=== PATIENT | female | born 1945 | race Caucasian/White ===

== ENCOUNTER 2023-06-21 11:20 | Outpatient (OUT) | payer MEDICARE, SELFPAY ==
--- NOTE | 2023-06-21 11:23 | MM_ITS ---
Patient: ABDON OROZCO Exam Date: 06/21/2023 : 1945 Gender:F Ordering : DR Toni Kraft . Admission #: [id number] Family : Order #: [id number] CLICK HERE TO VIEW EXAM RADIOLOGY REPORT PROCEDURE: MM TOMOSYNTHESIS SCREENING BI COMPARISON: MG MAMM SCREEN 3D MIGUEL CAD, 06/20/2022. INDICATIONS: Screening Calculator Name NCI Breast Cancer Risk Assessment Tool 5 Year Breast Cancer Risk 8.80% Lifetime Breast Cancer Risk 16.20% Personal Breast Cancer No Personal Ovarian Cancer No Treatments HYSTERECTOMY Family Cancers Mother with breast cancer at age 38; Sister with breast cancer at age 50; Sister with breast cancer at age 69; Daughter with ovarian cancer at age 40. LOCATION: [facility] BREAST COMPOSITION: Scattered areas fibroglandular density. FINDINGS: DIAGNOSTIC CATEGORY 1--NEGATIVE. NO CHANGE FROM COMPARISON ASSESSMENT. Scattered benign-appearing calcifications are present. Scattered benign-appearing lymph nodes are present. Scattered benign-appearing nodules are present. RIGHT BREAST: No significant suspicious finding. Micro clip marker upper outer quadrant, mid breast. LEFT BREAST: No significant suspicious finding. RECOMMENDATIONS: ROUTINE MAMMOGRAM AND CLINICAL EVALUATION IN 12 MONTHS. PLEASE NOTE: A NORMAL MAMMOGRAM DOES NOT EXCLUDE THE POSSIBILITY OF BREAST CANCER. A CLINICALLY SUSPICIOUS PALPABLE LUMP SHOULD BE BIOPSIED. Dictated by: Matty Jurado MD on 06/21/2023 at 12:53 Approved by: Matty Jurado MD on 06/21/2023 at 13:08
== END 2023-06-21 11:21 | disposition home or self-care (01) ==
LOC: MAMMO 11:21
PROVIDERS: PCP Family Medicine; Visit Provider Family Medicine
DX: Z12.31 Encounter for screening mammogram for malignant neoplasm of breast (principal); Z80.3 Family history of malignant neoplasm of breast; Z80.41 Family history of malignant neoplasm of ovary
CPT/HCPCS: 77063; 77067

== ENCOUNTER 2023-08-24 12:17 | Emergency (ER) | payer MEDICARE, SELFPAY ==
[2023-08-24 12:24] VITALS: BP 130/78; PULSE 60; RESP 18; TEMP 36.4; O2SAT 96; BMI 31.2
--- NOTE | 2023-08-24 12:27 | XR_ITS ---
The [address] [address] Patient Name: ABDON OROZCO MRN: [id number] date: 1945 Sex: F Assigned Patient Location: ER Current Patient Location: ED.MAIN Accession/Order Number: [id number] Exam Date: 08/24/2023 12:45 Report Date: 08/24/2023 13:11 At the request of: NATHALIE DEE Procedure: XR chest 1V EXAM: XR chest 1V at 1255 hours HISTORY: weak, recent COVID COMPARISON: 04/22/2021 TECHNIQUE: AP upright portable chest x-ray FINDINGS: The heart remains mildly enlarged without cardiac decompensation. There is no evidence of vascular distention. No acute infiltrate, effusion or pneumothorax is identified. Degenerative changes are seen in the spine. XR/XR chest 1V IMPRESSION: Mild cardiac enlargement without cardiac decompensation. No focal infiltrate is identified, and the overall appearance of the chest is essentially unchanged. Electronically authenticated by: SUKHWINDER CARLIN Date: 08/24/2023 13:11
--- NOTE | 2023-08-24 12:27 | ECG_ITS ---
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
--- NOTE | 2023-08-24 12:28 | ED_ITS ---
HPI - Weakness General Chief complaint: Weakness Stated complaint: GENERAL WEAKNESS Time Seen by Provider: 08/24/23 12:23 History of Present Illness HPI Narrative: 78-year-old female presents to the emergency department for generalized weakness. Nine days ago she was diagnosed with Covid. She took Paxil.. She's been having some diarrhea and has felt weak. She doesn't have any pain and feels no unusual shortness of breath. She has been feeling this way for two or three days. Related Data Allergies Allergy/AdvReac Type Severity Reaction Status Date / Time No Known Drug Allergies Allergy Verified 08/24/23 12:32 Review of Systems ROS Narrative A ten point review of systems is negative except as noted above. PFSH PFSH Social History Smoking status: Former smoker Exam Narrative Exam Narrative: Nurses note and vital signs reviewed and patient is not hypoxic. General: The patient appears well and in no apparent distress. Patient is resting comfortably on cart. Skin: Warm, dry, no pallor noted. There is no rash noted. Head: Normocephalic, atraumatic Eye: Normal conjunctiva, no drainage Ears, Nose, Mouth, and Throat: oral mucosa is moist. Nares patent. Cardiovascular: irregularly irregular Respiratory: Patient is in no distress, no accessory muscle use, lungs are praveen r to auscultation, no wheezing, rales or rhonchi Back: non-tender GI: soft and nontender Musculoskeletal: The patient has no evidence of calf tenderness, no pitting edema, symmetrical pulses noted bilaterally Neurological: A&O, normal speech Psychiatric: Cooperative Constitutional Vital Signs, click to edit/add: Last Vital Signs Temp 97.6 F 08/24/23 12:24 Pulse 60 08/24/23 12:24 Resp 18 08/24/23 12:24 BP 130/78 08/24/23 12:24 Pulse Ox 96 08/24/23 12:24 O2 Del Method Room Air 08/24/23 12:24 Course Vital Signs Vital signs: Vital Signs Temperature 97.6 F 08/24/23 12:24 Pulse Rate 60 08/24/23 12:24 Respiratory Rate 18 08/24/23 12:24 Blood Pressure 130/78 08/24/23 12:24 Pulse Oximetry 96 08/24/23 12:24 Oxygen Delivery Method Room Air 08/24/23 12:24 Temperature 97.6 F 08/24/23 12:24 Pulse Rate 60 08/24/23 12:24 Respiratory Rate 18 08/24/23 12:24 Blood Pressure 130/78 08/24/23 12:24 Pulse Oximetry 96 08/24/23 12:24 Oxygen Delivery Method Room Air 08/24/23 12:24 MDM - Weakness MDM Narrative Medical decision making narrative: The patient appears to be mildly dehydrated on her laboratory analysis. She was given IV fluids and feels much better now and is able to be discharged home. Findings are discussed with the patient and her family. Differential Diagnosis Differential diagnosis: Likely other (ddehydration, acute kidney injury, alleged slight imbalance, anemia, pneumonia) Lab Data Attestation: I reviewed the patient's lab results. Labs: Lab Results 08/24/23 08/24/23 Range/Units 12:43 13:35 WBC 12.4 H (4.0-11.0) 10^3/uL RBC 4.55 (4.20-5.40) 10^6/uL Hgb 14.6 (12.0-16.0) g/dL Hct 44.7 (36.0-48.0) % MCV 98.2 (81.0-99.0) fL MCH 32.1 (26.7-34.0) pg MCHC 32.7 (29.9-35.2) g/dL RDW 12.2 (11.0-15.0) % Plt Count 343 (150-450) 10^3/uL MPV 10.5 (9.5-13.5) fL Neut % (Auto) 47.3 (43.0-75.0) % Lymph % (Auto) 36.8 (20.5-60.0) % [place] % (Auto) 10.6 (1.7-12.0) % Eos % (Auto) 1.0 (0.9-7.0) % Baso % (Auto) 0.4 (0.2-2.0) % Neut # (Auto) 5.9 (1.4-6.5) 10^3/uL Lymph # (Auto) 4.6 H (1.2-3.8) 10^3/uL [place] # (Auto) 1.3 H (0.3-0.8) 10^3/uL Eos # (Auto) 0.1 (0.0-0.7) 10^3/uL Baso # (Auto) 0.1 (0.0-0.1) 10^3/uL Abs Immat Gran (auto) 0.48 H (0.00-0.03) 10^3/uL Imm/Tot Granulo (auto) 3.9 H (0.0-0.5) % Sodium 137 (136-145) mmol/L Potassium 4.7 (3.5-5.1) mmol/L Chloride 102 (98-107) mmol/L Carbon Dioxide 27.1 (21.0-32.0) mmol/L Anion Gap 12.6 BUN 43.0 H (7.0-18.0) mg/dL Creatinine 1.09 H (0.55-1.02) mg/dL Est GFR ( Amer) 59 L (>=60) Est GFR (Non-Af Amer) 49 L (>=60) BUN/Creatinine Ratio 39.4 Glucose 92 (74-106) mg/dL Calcium 9.1 (8.5-10.1) mg/dL Urine Color Lt. yellow (YELLOW) Urine Clarity Clear (CLEAR) Urine pH 5.5 (5.0-9.0) Ur Specific [place] 1.025 (1.005-1.025) Urine Protein Negative (NEG/TRACE) mg/dL Urine Glucose (UA) Negative (NEGATIVE) mg/dL Urine Ketones Negative (NEGATIVE) mg/dL Urine Occult Blood Negative (NEGATIVE) Urine Nitrite Negative (NEGATIVE) Urine Bilirubin Negative (NEGATIVE) Urine Urobilinogen 0.2 (0.2-1.0) EU/dL Ur Leukocyte Esterase Negative (NEGATIVE) Urine RBC None seen (0-2) #/HPF Urine WBC 0-2 A (NONE SEEN) #/HPF Ur Squamous Epith Cells Rare (NONE/RARE) #/LPF Urine Crystals None seen (None Seen) #/HPF Urine Bacteria None seen (NONE SEEN) #/HPF Urine Casts None seen (NONE SEEN) #/LPF Urine Mucus Trace A (NONE SEEN) Imaging Data Chest x-ray: Radiologist's impression: Procedure: XR chest 1V EXAM: XR chest 1V at 1255 hours HISTORY: weak, recent COVID COMPARISON: 04/22/2021 TECHNIQUE: AP upright portable chest x-ray FINDINGS: The heart remains mildly enlarged without cardiac decompensation. There is no evidence of vascular distention. No acute infiltrate, effusion or pneumothorax is identified. Degenerative changes are seen in the spine. IMPRESSION: Mild cardiac enlargement without cardiac decompensation. No focal infiltrate is identified, and the overall appearance of the chest is essentially unchanged. Electronically authenticated by: SUKHWINDER CARLIN Date: Discharge Plan Discharge Chief Complaint: Weakness Clinical Impression: Dehydration Patient Disposition: Home, Self-Care Time of Disposition Decision: 14:53 Condition: Good Mode of Transportation: Private Vehicle Instructions: Dehydration (ED) Stand Alone Forms: Portal Instructions Referrals: Toni Kraft MD [Primary Care Provider] - 1 week
[2023-08-24] MEDS: 0.9 % SODIUM CHLORIDE 500 ML IV ×2 (12:59→14:23)
[2023-08-24 13:00] LABS: Basophils Absolute Auto 0.1 10^3/uL (0.0-0.1); Basophils Percent Auto 0.4 % (0.2-2.0); Eosinophils Absolute Auto 0.1 10^3/uL (0.0-0.7); Hematocrit 44.7 % (36.0-48.0); Hemoglobin 14.6 g/dL (12.0-16.0); Immature Granulocytes Abs Auto 0.48 10^3/uL (0.00-0.03); Immature Granulocytes Pct Auto 3.9 % (0.0-0.5); Lymphocytes Absolute Auto 4.6 10^3/uL (1.2-3.8); Lymphocytes Percent Auto 36.8 % (20.5-60.0); Mean Corpuscular HGB Conc 32.7 g/dL (29.9-35.2); Mean Corpuscular Hemoglobin 32.1 pg (26.7-34.0); Mean Corpuscular Volume 98.2 fL (81.0-99.0); Mean Platelet Volume 10.5 fL (9.5-13.5); Monocytes Absolute Auto 1.3 10^3/uL (0.3-0.8); Monocytes Percent Auto 10.6 % (1.7-12.0); Neutrophils Absolute Auto 5.9 10^3/uL (1.4-6.5); Neutrophils Percent Auto 47.3 % (43.0-75.0); Platelet Count 343 10^3/uL (150-450); Red Blood Count 4.55 10^6/uL (4.20-5.40); Red Cell Distribution Width 12.2 % (11.0-15.0); White Blood Count 12.4 10^3/uL (4.0-11.0)
[2023-08-24 13:09] LABS: Anion Gap 12.6; BUN Creatinine Ratio 39.4; Calcium 9.1 mg/dL (8.5-10.1); Carbon Dioxide 27.1 mmol/L (21.0-32.0); Chloride 102 mmol/L (98-107); Estimated GFR (African America 59 (>=60); Estimated GFR (Non-African Ame 49 (>=60); Glucose 92 mg/dL (74-106); Potassium 4.7 mmol/L (3.5-5.1); Sodium 137 mmol/L (136-145)
[2023-08-24 14:03] LABS: Bilirubin Urine NEGATIVE (NEGATIVE); Blood Urine NEGATIVE (NEGATIVE); Clarity Urine CLEAR (CLEAR); Color Urine LT. YELLOW (YELLOW); Glucose Urine UA NEGATIVE (NEGATIVE); Ketones Urine NEGATIVE (NEGATIVE); Leukocyte Esterase Urine NEGATIVE (NEGATIVE); Nitrite Urine NEGATIVE (NEGATIVE); Protein Urine NEGATIVE (NEG/TRACE); Specific Gravity Urine 1.025 (1.005-1.025); Urobilinogen Urine 0.2 EU/dL (0.2-1.0); pH Urine 5.5 (5.0-9.0)
[2023-08-24 14:17] LABS: Bacteria Urine NONE SEEN #/HPF (NONE SEEN); Mucus Urine TRACE (NONE SEEN); RBC Urine NONE SEEN #/HPF (0-2); Squamous Epithelial Cell Urine RARE #/LPF (NONE/RARE); WBC Urine 0-2 #/HPF (NONE SEEN)
[2023-08-24 14:18] LABS: Cast Seen? NONE SEEN #/LPF (NONE SEEN); Crystals Seen? None Seen #/HPF (None Seen)
== END 2023-08-24 15:06 | disposition home or self-care (01) ==
PROVIDERS: Emergency Provider Emergency Medicine; PCP Family Medicine
DX: E86.0 Dehydration (principal); Z86.16 Personal history of COVID-19; Z87.891 Personal history of nicotine dependence
CPT/HCPCS: 36415; 71045; 80048; 81001; 85025; 93005; 99285

== ENCOUNTER 2023-10-04 08:38 | Outpatient (OUT) | payer MEDICARE, SELFPAY ==
[2023-10-04 09:01] LABS: Eosinophils Absolute Auto 0.1 10^3/uL (0.0-0.7); Hematocrit 35.5 % (36.0-48.0); Hemoglobin 11.3 g/dL (12.0-16.0); Immature Granulocytes Abs Auto 0.01 10^3/uL (0.00-0.03); Immature Granulocytes Pct Auto 0.2 % (0.0-0.5); Lymphocytes Absolute Auto 1.6 10^3/uL (1.2-3.8); Lymphocytes Percent Auto 39.7 % (20.5-60.0); Mean Corpuscular HGB Conc 31.8 g/dL (29.9-35.2); Mean Corpuscular Hemoglobin 31.9 pg (26.7-34.0); Mean Corpuscular Volume 100.3 fL (81.0-99.0); Mean Platelet Volume 11.7 fL (9.5-13.5); Monocytes Absolute Auto 0.6 10^3/uL (0.3-0.8); Monocytes Percent Auto 13.6 % (1.7-12.0); Neutrophils Absolute Auto 1.7 10^3/uL (1.4-6.5); Neutrophils Percent Auto 42.5 % (43.0-75.0); Platelet Count 158 10^3/uL (150-450); Red Blood Count 3.54 10^6/uL (4.20-5.40); Red Cell Distribution Width 12.9 % (11.0-15.0)
[2023-10-04 10:41] LABS: Estimated Average Glucose 154 mg/dL
[2023-10-04 12:52] LABS: Alanine Aminotransferase 33 U/L (14-59); Albumin Globulin Ratio 1.3; Albumin Level 3.8 g/dL (3.4-5.0); Alkaline Phosphatase 60 U/L (46-116); Anion Gap 16.6; Aspartate Amino Transferase 20 U/L (15-37); BUN Creatinine Ratio 27.8; Bilirubin Total 0.4 mg/dL (0.2-1.0); Calcium 9.4 mg/dL (8.5-10.1); Carbon Dioxide 22.5 mmol/L (21.0-32.0); Chloride 108 mmol/L (98-107); Chol HDL Ratio 3.2; Cholesterol 167 mg/dL (<=200); Estimated GFR (African America 60 (>=60); Estimated GFR (Non-African Ame 49 (>=60); Free T3 2.75 pg/mL (2.18-3.98); Globulin 2.9 g/dL; Glucose 137 mg/dL (74-106); HDL Cholesterol 53 mg/dL (40-60); LDL Cholesterol Calculated 84.6 mg/dL; Potassium 4.1 mmol/L (3.5-5.1); Sodium 143 mmol/L (136-145); Thyroid Stimulating Hormone 0.043 uIU/mL (0.358-3.740); Total Protein 6.7 g/dL (6.4-8.2); Triglycerides 147 mg/dL (<=150); VLDL CHOLESTEROL 29.4 mg/dL
== END 2023-10-04 08:39 | disposition home or self-care (01) ==
LOC: LAB 08:40
PROVIDERS: PCP Family Medicine; Visit Provider Family Medicine
DX: E78.5 Hyperlipidemia, unspecified (principal); E03.9 Hypothyroidism, unspecified; I10 Essential (primary) hypertension; D64.9 Anemia, unspecified; Z79.899 Other long term (current) drug therapy; R73.01 Impaired fasting glucose
CPT/HCPCS: 36415; 80053; 80061; 83036; 84436; 84443; 84481; 85025

== ENCOUNTER 2023-10-11 10:04 | Outpatient (REF) | payer MEDICARE, SELFPAY ==
[2023-10-11 10:20] LABS: SARS-CoV-2 Ag NEGATIVE (NEGATIVE)
[2023-10-11 15:09] LABS: SARS-CoV-2 NAA NOT DETECTED (NOT DETECTE)
== END 2023-10-11 10:05 | disposition home or self-care (01) ==
LOC: LAB 10:04
PROVIDERS: PCP Family Medicine; Visit Provider Family Medicine
DX: J21.9 Acute bronchiolitis, unspecified (principal)
CPT/HCPCS: 87635; 87811

== ENCOUNTER 2023-10-14 13:01 | Observation (INO) | payer MEDICARE, SELFPAY ==
[2023-10-14] VITALS (20 sets, daily range): BP systolic 119–152; BP diastolic 63–75; PULSE 66–108; RESP 18–32; TEMP 36.9–37.1; O2SAT 93–98; BMI 32.8
--- NOTE | 2023-10-14 13:11 | XR_ITS ---
[address] [address] Patient Name: ABDON OROZCO MRN: [id number] date: 1945 Sex: F Assigned Patient Location: ER Current Patient Location: ER Accession/Order Number: [id number] Exam Date: 10/14/2023 13:35 Report Date: 10/14/2023 14:29 At the request of: NATHALIE DEE Procedure: XR chest 1V EXAM: XR chest 1V INDICATION: SOB. COMPARISON: Chest radiograph 08/24/2023 TECHNIQUE: Single frontal view of the chest FINDINGS: Stable cardiomegaly. No acute infiltrative process. No pleural effusion or pneumothorax. No acute osseous abnormality. XR/XR chest 1V IMPRESSION: No acute cardiopulmonary process. Electronically authenticated by: ELIZABETH RODRIGUEZ Date: 10/14/2023 14:29
--- NOTE | 2023-10-14 13:11 | ECG_ITS ---
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1945 Requested By: BEN MATHUR Order Number: [id number] Reading MD: BEN MATHUR Measurements Intervals [place] Rate: 88 P: -[id number] ME: -[id number] QRS: 107 QRSD: 94 T: 73 QT: 340 QTc: 386 Interpretive Statements 43235 Atrial fibrillation with aberrant conduction, or ventricular premature complexes 7100 Abnormal right axis deviation 9140 abnormal rhythm ECG Compared to ECG 08/24/2023 12:35:31 Ventricular premature complex(es) now present Aberrant conduction of supraventricular beat(s) now present Right-axis deviation now present Myocardial infarct finding no longer present Electronically Signed On 10-16-2023 8:15:45 EST by BEN MATHUR
--- NOTE | 2023-10-14 13:12 | ED.SOB1 ---
HPI - SOB/Dyspnea General Chief Complaint: Shortness of Breath/Dyspnea Stated Complaint: DIFF BREATHING Time Seen by Provider: 10/14/23 13:05 Source: patient Mode of arrival: walk-in Limitations: no limitations History of Present Illness HPI Narrative: 78-year-old female presents for cough and shortness of breath. She hasn't been feeling well this past week and has been wheezing. Her doctor put her on prednisone and Augmentin and she's been on that for a few days but wasn't getting better. No vomiting or diarrhea. She had a slight nosebleed today and otherwise her sputum has been clear. Related Data Home Medications Medication Instructions Recorded Confirmed albuterol sulfate 90 mcg/actuation 2 puff inhalation Q8H PRN 10/14/23 10/14/23 aerosol inhaler (Ventolin HFA) shortness of breath or wheezing amoxicillin 875 mg-potassium 1 tab PO Q12H 10/14/23 10/14/23 clavulanate 125 mg tablet apixaban 5 mg tablet (Eliquis) 5 mg PO Q12H 10/14/23 10/14/23 atorvastatin 40 mg tablet 40 mg PO DAILY 10/14/23 10/14/23 diclofenac sodium 75 mg 75 mg PO DAILY 10/14/23 10/14/23 tablet,delayed release furosemide 40 mg tablet 40 mg PO DAILY 10/14/23 10/14/23 glimepiride 2 mg tablet 2 mg PO BID 10/14/23 10/14/23 levothyroxine 88 mcg tablet 88 mcg PO DAILY 10/14/23 10/14/23 liothyronine 25 mcg tablet 25 mcg PO DAILY 10/14/23 10/14/23 losartan 50 mg tablet 50 mg PO DAILY 10/14/23 10/14/23 metoprolol succinate 25 mg 12.5 mg PO DAILY 10/14/23 10/14/23 tablet,extended release 24 hr prednisone 20 mg tablet mg 10/14/23 Allergies Allergy/AdvReac Type Severity Reaction Status Date / Time No Known Drug Allergies Allergy Verified 08/24/23 12:32 Review of Systems ROS Narrative A ten point review of systems is negative except as noted above. PFSH PFSH Social History Smoking status: Former smoker Exam Narrative Exam Narrative: Nurses note and vital signs reviewed and patient is not hypoxic. General: The patient appears well and is coughing frequently. Skin: Warm, dry, no pallor noted. There is no rash noted. Head: Normocephalic, atraumatic Eye: Normal conjunctiva, no drainage Ears, Nose, Mouth, and Throat: oral mucosa is moist. Nares patent. Cardiovascular: Regular Rate and Rhythm Respiratory: bilateral rhonchi present. Breath sounds are equal. Back: non-tender GI: soft and nontender Musculoskeletal: The patient has no evidence of calf tenderness, no pitting edema, symmetrical pulses noted bilaterally Neurological: A&O, normal speech Psychiatric: Cooperative Constitutional Vital Signs, click to edit/add: Last Vital Signs Temp 98.5 F 10/14/23 13:04 Pulse 100 H 10/14/23 15:22 Resp 24 10/14/23 15:22 BP 152/75 H 10/14/23 13:04 Pulse Ox 98 10/14/23 15:22 O2 Del Method Room Air 10/14/23 13:12 Course Vital Signs Vital signs: Vital Signs Temperature 98.5 F 10/14/23 13:04 Pulse Rate 77 10/14/23 13:04 Respiratory Rate 24 10/14/23 13:04 Blood Pressure 152/75 H 10/14/23 13:04 Pulse Oximetry 97 10/14/23 13:04 Oxygen Delivery Method Room Air 10/14/23 13:04 Temperature 98.5 F 10/14/23 13:04 Pulse Rate 100 H 10/14/23 15:22 Respiratory Rate 24 10/14/23 15:22 Blood Pressure 152/75 H 10/14/23 13:04 Pulse Oximetry 98 10/14/23 15:22 Oxygen Delivery Method Room Air 10/14/23 13:12 MDM - SOB/Dyspnea MDM Narrative Medical decision making narrative: the patient is a former smoker and she has rhonchi. She has failed outpatient therapy with Augmentin and prednisone and she'll be admitted. No evidence of pneumonia and her Covid test is negative. She was given IV Solu-Medrol and aerosol treatments and she's being admitted. Findings are discussed with the patient and her family. Differential Diagnosis Differential diagnosis: Likely acute exacerbation of chronic obstructive airways disease, congestive heart failure, community acquired pneumonia and other (Covid) Lab Data Attestation: I reviewed the patient's lab results. Labs: Lab Results 12/09/23 12/09/23 Range/Units 13:24 13:25 WBC 8.5 (4.0-11.0) 10^3/uL RBC 3.88 L (4.20-5.40) 10^6/uL Hgb 12.3 (12.0-16.0) g/dL Hct 39.2 (36.0-48.0) % MCV 101.0 H (81.0-99.0) fL MCH 31.7 (26.7-34.0) pg MCHC 31.4 (29.9-35.2) g/dL RDW 13.2 (11.0-15.0) % Plt Count 199 (150-450) 10^3/uL MPV 11.7 (9.5-13.5) fL Neut % (Auto) 63.3 (43.0-75.0) % Lymph % (Auto) 22.9 (20.5-60.0) % [place] % (Auto) 12.8 H (1.7-12.0) % Eos % (Auto) 0.2 L (0.9-7.0) % Baso % (Auto) 0.4 (0.2-2.0) % Neut # (Auto) 5.4 (1.4-6.5) 10^3/uL Lymph # (Auto) 1.9 (1.2-3.8) 10^3/uL [place] # (Auto) 1.1 H (0.3-0.8) 10^3/uL Eos # (Auto) 0.0 (0.0-0.7) 10^3/uL Baso # (Auto) 0.0 (0.0-0.1) 10^3/uL Abs Immat Gran (auto) 0.03 (0.00-0.03) 10^3/uL Imm/Tot Granulo (auto) 0.4 (0.0-0.5) % Sodium 143 (136-145) mmol/L Potassium 3.7 (3.5-5.1) mmol/L Chloride 104 (98-107) mmol/L Carbon Dioxide 27.0 (21.0-32.0) mmol/L Anion Gap 15.7 BUN 39.0 H (7.0-18.0) mg/dL Creatinine 1.25 H (0.55-1.02) mg/dL Est GFR ( Amer) 50 L (>=60) Est GFR (Non-Af Amer) 42 L (>=60) BUN/Creatinine Ratio 31.2 Glucose 62 L (74-106) mg/dL Calcium 9.1 (8.5-10.1) mg/dL Troponin I High Sens 13.6 (4.0-51.3) pg/mL SARS-CoV-2 (PCR) Negative (NEGATIVE) SARS-CoV-2 RNA (CIARAN) Not detected (NOT DETECTE) Imaging Data Chest x-ray: Radiologist's impression: Procedure: XR chest 1V EXAM: XR chest 1V INDICATION: SOB. COMPARISON: Chest radiograph 08/24/2023 TECHNIQUE: Single frontal view of the chest FINDINGS: Stable cardiomegaly. No acute infiltrative process. No pleural effusion or pneumothorax. No acute osseous abnormality. IMPRESSION: No acute cardiopulmonary process. Electronically authenticated by: ELIZABETH RODRIGUEZ Date: 10/14/2023 14:29 ECG Data Attestation: I personally reviewed and interpreted this ECG as follows: (EKG on my interpretation shows atrial fibrillation with PVCs) Critical Care Time Critical Care Time Critical Care Time: Yes Total Critical Care Time: 35 Attestation: Due to the high probability of sudden and clinically significant deterioration in the patient's condition he/she required the highest level of my preparedness to intervene urgently I provided critical care time including documentation time, medication orders and management, reevaluation, vital sign assessment, ordering and reviewing of lab tests, ordering and reviewing of x-ray studies, and admission orders. Aggregate critical care time is 35 minutes including only time during which I was engaged in work directly related to his/her care and did not include time spent treating other patients simultaneously. Discharge Plan Discharge Chief Complaint: Shortness of Breath/Dyspnea Clinical Impression: Acute exacerbation of chronic obstructive pulmonary disease Patient Disposition: Admitted As Inpatient Time of Disposition Decision: 15:57 Condition: Good
[2023-10-14] MEDS: METHYLPREDNISOLONE SOD SUCC PF 125 MG/2 ML VIAL IVP (13:33)
[2023-10-14 13:39] LABS: Basophils Percent Auto 0.4 % (0.2-2.0); Eosinophils Percent Auto 0.2 % (0.9-7.0); Hematocrit 39.2 % (36.0-48.0); Hemoglobin 12.3 g/dL (12.0-16.0); Immature Granulocytes Abs Auto 0.03 10^3/uL (0.00-0.03); Immature Granulocytes Pct Auto 0.4 % (0.0-0.5); Lymphocytes Absolute Auto 1.9 10^3/uL (1.2-3.8); Lymphocytes Percent Auto 22.9 % (20.5-60.0); Mean Corpuscular HGB Conc 31.4 g/dL (29.9-35.2); Mean Corpuscular Hemoglobin 31.7 pg (26.7-34.0); Mean Platelet Volume 11.7 fL (9.5-13.5); Monocytes Absolute Auto 1.1 10^3/uL (0.3-0.8); Monocytes Percent Auto 12.8 % (1.7-12.0); Neutrophils Absolute Auto 5.4 10^3/uL (1.4-6.5); Neutrophils Percent Auto 63.3 % (43.0-75.0); Platelet Count 199 10^3/uL (150-450); Red Blood Count 3.88 10^6/uL (4.20-5.40); Red Cell Distribution Width 13.2 % (11.0-15.0); White Blood Count 8.5 10^3/uL (4.0-11.0)
[2023-10-14] MEDS: ALBUTEROL SULFATE 2.5 MG/3 ML VIAL NEB IH (13:47)
[2023-10-14 13:56] LABS: Anion Gap 15.7; BUN Creatinine Ratio 31.2; Calcium 9.1 mg/dL (8.5-10.1); Chloride 104 mmol/L (98-107); Estimated GFR (African America 50 (>=60); Estimated GFR (Non-African Ame 42 (>=60); Glucose 62 mg/dL (74-106); Potassium 3.7 mmol/L (3.5-5.1); Sodium 143 mmol/L (136-145); Troponin I High Sensitivity 13.6 pg/mL (4.0-51.3)
[2023-10-14 14:01] LABS: SARS-CoV-2 Ag NEGATIVE (NEGATIVE)
[2023-10-14 15:31] LABS: SARS-CoV-2 NAA NOT DETECTED (NOT DETECTE)
[2023-10-14 16:55] LABS: Adenovirus NOT DETECTED (NOT DETECTE); Bordetella parapertussis NOT DETECTED (NOT DETECTE); Coronavirus 229E NOT DETECTED (NOT DETECTE); Coronavirus HKU1 NOT DETECTED (NOT DETECTE); Coronavirus NL63 NOT DETECTED (NOT DETECTE); Coronavirus OC43 NOT DETECTED (NOT DETECTE); Human Metapneumovirus NOT DETECTED (NOT DETECTE); Human Rhinovirus/Enterovirus NOT DETECTED (NOT DETECTE); Influenza A NOT DETECTED (NOT DETECTE); Influenza B NOT DETECTED (NOT DETECTE); Mycoplasma pneumoniae NOT DETECTED (NOT DETECTE); Parainfluenza Virus 1 NOT DETECTED (NOT DETECTE); Parainfluenza Virus 2 NOT DETECTED (NOT DETECTE); Parainfluenza Virus 3 NOT DETECTED (NOT DETECTE); Parainfluenza Virus 4 NOT DETECTED (NOT DETECTE); SARS-CoV-2 NOT DETECTED (NOT DETECTE)
--- NOTE | 2023-10-14 16:57 | P.HP_ITS ---
H&P: HPI History of Present Illness Chief complaint: DIFF BREATHING/COPD EXASPERTION Narrative: patient is a 78-year-old female with past medical history of hypertension, type 2 diabetes, former smoker, atrial fibrillation who presented with a week long history of increased wheezing, shortness of breath, cough. She denies any fevers or chills, vomiting, or diarrhea. She visited her primary care physician Dr. Kraft who placed her on prednisone and Augmentin as well as an inhaler without much improvement. She presented to the Emergency Room today with these symptoms and was admitted for probable chronic obstructive pulmonary disease exacerbation and further plan of care. Review of Systems ROS Narrative ROS: a complete review of systems were reviewed with patient and are positive as below or listed in History of Chief Complaint. General: no fever, chills, night sweats Head: no headache, trauma, visual changes, nausea or vomiting Skin: no reported rashes, itching or sores Eyes: no blurriness of vision Ears: no reported hearing loss, vertigo, earache, or tinnitus Throat: no sore throat, hoarseness, swelling of neck, or tongue pain Heart: no chest pain Lungs: shortness of breath, and cough GI: no diarrhea or vomiting/nausea Urinary: no urinary urgency, frequency or pain Neuro: no numbness or tingling HEM: no bleeding issues or bruising ENDO: no thyroid problems Psych: no anxiety or depression PFSH PFSH Surgical History History of arthroplasty of right shoulder ?Z96.611 - Presence of right artificial shoulder joint (ICD-10) History of knee replacement ?Z96.659 - Presence of unspecified artificial knee joint (ICD-10) H/O: hysterectomy ?Z90.710 - Acquired absence of both cervix and uterus (ICD-10) Social History Within the past year, how often did you have a drink containing alcohol: 2-3 times a week Within the past year, how many standard drinks containing alcohol did you have on a typical day: 1 or 2 Within the past year, how often did you have six or more drinks on one occasion: less than monthly Total score: 1 Score interpretation: A score of 3 or more indicates drinking is likely to affect patient's safety. Smoking status: Former smoker Non-prescribed substance use: denies use Previous occupational history: [employer] Highest level of school completed/degree received: high school graduate Meds Home Medications and Allergies Home Medications Medication Instructions Recorded Confirmed Type albuterol sulfate 90 mcg/actuation 2 puff inhalation Q8H PRN 10/14/23 10/14/23 History aerosol inhaler (Ventolin HFA) shortness of breath or wheezing amoxicillin 875 mg-potassium 1 tab PO Q12H 10/14/23 10/14/23 History clavulanate 125 mg tablet apixaban 5 mg tablet (Eliquis) 5 mg PO Q12H 10/14/23 10/14/23 History atorvastatin 40 mg tablet 40 mg PO DAILY 10/14/23 10/14/23 History diclofenac sodium 75 mg 75 mg PO DAILY 10/14/23 10/14/23 History tablet,delayed release furosemide 40 mg tablet 40 mg PO DAILY 10/14/23 10/14/23 History glimepiride 2 mg tablet 2 mg PO BID 10/14/23 10/14/23 History levothyroxine 88 mcg tablet 88 mcg PO DAILY 10/14/23 10/14/23 History liothyronine 25 mcg tablet 25 mcg PO DAILY 10/14/23 10/14/23 History losartan 50 mg tablet 50 mg PO DAILY 10/14/23 10/14/23 History metoprolol succinate 25 mg 12.5 mg PO DAILY 10/14/23 10/14/23 History tablet,extended release 24 hr prednisone 20 mg tablet mg 10/14/23 History Allergies Allergy/AdvReac Type Severity Reaction Status Date / Time No Known Drug Allergies Allergy Verified 08/24/23 12:32 Exam Narrative Exam Narrative: General: Patient is alert, and oriented to person, place and time with normal affect, proper hygiene Skin: no visible rashes, or ulcers Head: atraumatic, acephalic Eyes: PERRLA, no nystagmus present, conjunctiva clear, no scleral icterus Ears: normal gross auditory acuity Heart: Normal rate and rhythm, no murmurs/rubs/gallops Lungs: audible wheezes, and crackles and diminished breath sounds all lung cardenas Abdomen: Normal audible bowel sounds, no distension, No palpable masses, no organomegaly, no rebound/guarding/ or rigidity Musculoskeletal: no swelling bilateral lower extremities Neuro: CN II-X grossly intact Constitutional Vital Signs, click to edit/add: Last Vital Signs Temp 98.5 F 10/14/23 13:04 Pulse 100 H 10/14/23 15:22 Resp 24 10/14/23 15:22 BP 152/75 H 10/14/23 13:04 Pulse Ox 98 10/14/23 15:22 O2 Del Method Room Air 10/14/23 13:12 Results Labs Labs: Short CBC 10/14/23 Range/Units 13:24 WBC 8.5 (4.0-11.0) 10^3/uL Hgb 12.3 (12.0-16.0) g/dL Hct 39.2 (36.0-48.0) % Plt Count 199 (150-450) 10^3/uL BMP 10/14/23 13:24 Sodium 143 Potassium 3.7 Chloride 104 Carbon Dioxide 27.0 BUN 39.0 H Creatinine 1.25 H Glucose 62 L Calcium 9.1 Assessment and Plan Assessment and Plan (1) Acute exacerbation of chronic obstructive pulmonary disease: Assessment and Plan: will place on azithromycin, rocephin. Xopenex scheduled and PRN albuterol. Scheduled budesonide. Solumedrol 40mg Q6 hours. Chest X-ray negative for Pneumonia. first trop was negative. respiratory panel pending. (2) Type 2 diabetes mellitus: Assessment and Plan: fingersticks every before meals daily at bedtime and sliding scale insulin (3) Hypertension: Assessment and Plan: continue home Lasix, losartan, metoprolol (4) Atrial fibrillation: Assessment and Plan: currently rate controlled on the above medications, will continue Eliquis Plan patient is a full code continue Eliquis patient is in observation status and is not expected to stay more than 2 midnights.
[2023-10-14] MEDS: CEFTRIAXONE 1,000 MG in 0.9 % SODIUM CHLORIDE 50 ML 100 MG IV (17:03)
[2023-10-14] MEDS: AZITHROMYCIN 500 MG in 0.9 % SODIUM CHLORIDE 250 ML 250 MG IV (17:04)
[2023-10-14 17:46] LABS: Respiratory Syncytial Virus DETECTED (NOT DETECTE)
[2023-10-14 17:49] LABS: Troponin I High Sensitivity 12.6 pg/mL (4.0-51.3)
[2023-10-14] MEDS: LACTATED RINGER'S SOLUTION 1,000 ML 125 ML IV (18:00)
[2023-10-14 18:15] LABS: Glucometer 214 mg/dL (74-106)
[2023-10-14] MEDS: LEVALBUTEROL HCL 1.25 MG/3 ML VIAL NEB IH ×2 (18:55→23:33)
[2023-10-14 19:57] LABS: Glucometer 448 mg/dL (74-106)
[2023-10-14] MEDS: APIXABAN 5 MG TABLET PO (20:53)
[2023-10-14] MEDS: METHYLPREDNISOLONE SOD SUCC PF 40 MG/ML VIAL IVP (20:53)
[2023-10-14] MEDS: INSULIN ASPART 300 UNIT/3 ML PEN SUBQ (20:56)
[2023-10-14] MEDS: BUDESONIDE 0.5 MG/2 ML AMPULE NEB IH (23:33)
[2023-10-15] VITALS (19 sets, daily range): BP systolic 135–144; BP diastolic 53–74; PULSE 70–91; RESP 18–24; TEMP 36.4–36.7; O2SAT 92–96
[2023-10-15] MEDS: LACTATED RINGER'S SOLUTION 1,000 ML 125 ML IV ×3 (01:29→20:17)
[2023-10-15] MEDS: METHYLPREDNISOLONE SOD SUCC PF 40 MG/ML VIAL IVP ×4 (01:32→20:15)
[2023-10-15] MEDS: LEVALBUTEROL HCL 1.25 MG/3 ML VIAL NEB IH ×4 (04:37→23:16)
[2023-10-15 04:49] LABS: Hemoglobin 10.1 g/dL (12.0-16.0); Immature Granulocytes Abs Auto 0.02 10^3/uL (0.00-0.03); Immature Granulocytes Pct Auto 0.4 % (0.0-0.5); Lymphocytes Absolute Auto 0.4 10^3/uL (1.2-3.8); Lymphocytes Percent Auto 9.1 % (20.5-60.0); Mean Corpuscular HGB Conc 31.6 g/dL (29.9-35.2); Mean Corpuscular Hemoglobin 31.4 pg (26.7-34.0); Mean Corpuscular Volume 99.4 fL (81.0-99.0); Mean Platelet Volume 11.9 fL (9.5-13.5); Monocytes Absolute Auto 0.2 10^3/uL (0.3-0.8); Monocytes Percent Auto 3.3 % (1.7-12.0); Neutrophils Absolute Auto 3.9 10^3/uL (1.4-6.5); Neutrophils Percent Auto 87.2 % (43.0-75.0); Platelet Count 174 10^3/uL (150-450); Red Blood Count 3.22 10^6/uL (4.20-5.40); Red Cell Distribution Width 13.3 % (11.0-15.0); White Blood Count 4.5 10^3/uL (4.0-11.0)
[2023-10-15] MEDS: LEVOTHYROXINE SODIUM 88 MCG TABLET PO (05:35)
[2023-10-15] MEDS: LIOTHYRONINE SODIUM 25 MCG TABLET PO (05:35)
[2023-10-15 05:40] LABS: Alanine Aminotransferase 32 U/L (14-59); Albumin Globulin Ratio 1.1; Albumin Level 3.3 g/dL (3.4-5.0); Alkaline Phosphatase 51 U/L (46-116); Anion Gap 14.1; Aspartate Amino Transferase 19 U/L (15-37); BUN Creatinine Ratio 28.4; Bilirubin Total 0.3 mg/dL (0.2-1.0); Carbon Dioxide 24.6 mmol/L (21.0-32.0); Chloride 105 mmol/L (98-107); Estimated GFR (African America >60 (>=60); Estimated GFR (Non-African Ame 53 (>=60); Globulin 2.9 g/dL; Glucose 269 mg/dL (74-106); Magnesium 1.7 mg/dL (1.8-2.4); Potassium 3.7 mmol/L (3.5-5.1); Sodium 140 mmol/L (136-145); Total Protein 6.2 g/dL (6.4-8.2)
--- NOTE | 2023-10-15 07:53 | XR_ITS ---
[address] [address] Patient Name: ABDON OROCZO MRN: [id number] date: 1945 Sex: F Assigned Patient Location: MS Current Patient Location: MS Accession/Order Number: [id number] Exam Date: 10/15/2023 08:16 Report Date: 10/15/2023 08:35 At the request of: JEFFREY JIMENEZ Procedure: XR chest 2V EXAM: XR chest 2V INDICATION: cough. COMPARISON: Chest radiograph 10/14/2023 TECHNIQUE: Two views of the chest FINDINGS: Stable cardiomegaly. Normal pulmonary vasculature. No focal consolidation, pleural effusion, or pneumothorax. No acute osseous abnormality. XR/XR chest 2V IMPRESSION: No acute cardiopulmonary process. Electronically authenticated by: ELIZABETH RODRIGUEZ Date: 10/15/2023 08:35
--- NOTE | 2023-10-15 07:55 | PM.PN ---
Progress Note: Subjective Subjective Interval history: patient states she was not able to sleep much last night, still with productive cough with clear sputum. She denies any fevers or chills or shortness of breath. She still notes some wheezing. Patient reports she doesn't notice much of a change since last evening's admission. Exam Narrative Exam Narrative: General: Patient is alert, and oriented to person, place and time slightly tachypneic when talking from coughing Skin: no visible rashes, or ulcers Head: atraumatic, acephalic Eyes: PERRLA, no nystagmus present, conjunctiva clear, no scleral icterus Ears: normal gross auditory acuity Heart: Normal rate and rhythm, no murmurs/rubs/gallops Lungs: audible wheezes, and crackles and diminished breath sounds all lung cardenas Abdomen: Normal audible bowel sounds, no distension, No palpable masses, no organomegaly, no rebound/guarding/ or rigidity Musculoskeletal: no swelling bilateral lower extremities Neuro: CN II-X grossly intact Constitutional Vital Signs, click to edit/add: Last Vital Signs Temp 97.6 F 10/15/23 04:00 Pulse 84 10/15/23 06:00 Resp 24 10/15/23 04:40 BP 142/53 H 10/15/23 04:00 Pulse Ox 95 10/15/23 04:40 O2 Del Method Room Air 10/15/23 04:40 Progress Note: Objective Labs Labs: Short CBC 10/14/23 10/15/23 Range/Units 13:24 04:12 WBC 8.5 4.5 (4.0-11.0) 10^3/uL Hgb 12.3 10.1 L (12.0-16.0) g/dL Hct 39.2 32.0 L (36.0-48.0) % Plt Count 199 174 (150-450) 10^3/uL BMP 10/14/23 10/15/23 13:24 04:12 Sodium 143 140 Potassium 3.7 3.7 Chloride 104 105 Carbon Dioxide 27.0 24.6 BUN 39.0 H 29.0 H Creatinine 1.25 H 1.02 Glucose 62 L 269 H Calcium 9.1 9.0 Liver Function 10/15/23 Range/Units 04:12 Total Bilirubin 0.3 (0.2-1.0) mg/dL AST 19 (15-37) U/L ALT 32 (14-59) U/L Alkaline Phosphatase 51 (46-116) U/L Albumin 3.3 L (3.4-5.0) g/dL Progress Note: A&P Assessment and Plan (1) RSV bronchitis: Assessment and Plan: continue azithromycin, stop rochepin today. Xopenex scheduled and PRN albuterol. Scheduled budesonide. Solumedrol 40mg Q6 hours. Chest X-ray negative for Pneumonia x 2, No oxygen requirement at this time; start Mucinex, Tessalon, and promethazine for cough, Patient just needs time to show improvement. OPEP therapy. (2) Type 2 diabetes mellitus: Assessment and Plan: fingersticks every before meals daily at bedtime and sliding scale insulin, will be elevated due to steroids (3) Hypertension: Assessment and Plan: continue home Lasix, losartan, metoprolol (4) Atrial fibrillation: Assessment and Plan: currently rate controlled on the above medications, will continue Eliquis Plan patient is a full code continue Eliquis patient is in observation status and is not expected to stay more than 2 midnights.
[2023-10-15] MEDS: MAGNESIUM SULFATE IN WATER 2 GM/50 ML PREMIX IV (08:59)
[2023-10-15] MEDS: LOSARTAN POTASSIUM 50 MG TABLET PO (09:00)
[2023-10-15] MEDS: METOPROLOL SUCCINATE 25 MG TAB.ER.24H 12.5 MG PO (09:00)
[2023-10-15] MEDS: FUROSEMIDE 40 MG TABLET PO (09:00)
[2023-10-15] MEDS: GUAIFENESIN/DEXTROMETHORPHAN TAB.ER.12H 1 TAB PO ×2 (09:00→20:15)
[2023-10-15] MEDS: DICLOFENAC SODIUM 25 MG TABLET.DR 75 MG PO (09:00)
[2023-10-15] MEDS: BENZONATATE 100 MG CAPSULE PO ×2 (09:00→18:59)
[2023-10-15] MEDS: ATORVASTATIN CALCIUM 40 MG TABLET PO (09:00)
[2023-10-15] MEDS: APIXABAN 5 MG TABLET PO ×2 (09:00→20:15)
[2023-10-15] MEDS: INSULIN ASPART 300 UNIT/3 ML PEN SUBQ ×4 (09:01→21:25)
[2023-10-15] MEDS: BUDESONIDE 0.5 MG/2 ML AMPULE NEB IH ×2 (10:19→23:16)
[2023-10-15 11:30] LABS: Glucometer 233 mg/dL (74-106)
[2023-10-15] MEDS: PROMETHAZINE HCL/CODEINE 6.25 MG-10 MG/5 ML SYRUP 5 MG PO ×2 (13:43→23:03)
[2023-10-15 16:17] LABS: Glucometer 207 mg/dL (74-106)
[2023-10-15] MEDS: AZITHROMYCIN 500 MG in 0.9 % SODIUM CHLORIDE 250 ML 250 MG IV (16:21)
[2023-10-15] MEDS: CEFTRIAXONE 1,000 MG in 0.9 % SODIUM CHLORIDE 50 ML 100 MG IV (17:36)
[2023-10-15 21:10] LABS: Glucometer 290 mg/dL (74-106)
[2023-10-16] VITALS (9 sets, daily range): BP systolic 155–172; BP diastolic 64–79; PULSE 71–91; RESP 18–20; TEMP 36.6–36.7; O2SAT 92–94
[2023-10-16] MEDS: METHYLPREDNISOLONE SOD SUCC PF 40 MG/ML VIAL IVP ×2 (01:55→07:39)
[2023-10-16] MEDS: LACTATED RINGER'S SOLUTION 1,000 ML 125 ML IV (04:16)
[2023-10-16 04:56] LABS: Basophils Percent Auto 0.1 % (0.2-2.0); Hematocrit 32.2 % (36.0-48.0); Hemoglobin 10.5 g/dL (12.0-16.0); Immature Granulocytes Abs Auto 0.03 10^3/uL (0.00-0.03); Immature Granulocytes Pct Auto 0.4 % (0.0-0.5); Lymphocytes Absolute Auto 0.7 10^3/uL (1.2-3.8); Mean Corpuscular HGB Conc 32.6 g/dL (29.9-35.2); Mean Corpuscular Hemoglobin 32.3 pg (26.7-34.0); Mean Corpuscular Volume 99.1 fL (81.0-99.0); Mean Platelet Volume 11.4 fL (9.5-13.5); Monocytes Absolute Auto 0.5 10^3/uL (0.3-0.8); Neutrophils Absolute Auto 6.8 10^3/uL (1.4-6.5); Neutrophils Percent Auto 84.5 % (43.0-75.0); Platelet Count 169 10^3/uL (150-450); Red Blood Count 3.25 10^6/uL (4.20-5.40); Red Cell Distribution Width 13.4 % (11.0-15.0)
[2023-10-16] MEDS: CEFTRIAXONE 1,000 MG in 0.9 % SODIUM CHLORIDE 50 ML 100 MG IV (05:21)
[2023-10-16] MEDS: LEVALBUTEROL HCL 1.25 MG/3 ML VIAL NEB IH (05:28)
[2023-10-16 05:29] LABS: Alanine Aminotransferase 30 U/L (14-59); Albumin Globulin Ratio 1.2; Albumin Level 3.2 g/dL (3.4-5.0); Alkaline Phosphatase 50 U/L (46-116); Anion Gap 11.6; Aspartate Amino Transferase 21 U/L (15-37); BUN Creatinine Ratio 30.2; Bilirubin Total 0.3 mg/dL (0.2-1.0); Calcium 8.7 mg/dL (8.5-10.1); Carbon Dioxide 27.1 mmol/L (21.0-32.0); Chloride 107 mmol/L (98-107); Estimated GFR (African America >60 (>=60); Estimated GFR (Non-African Ame 56 (>=60); Globulin 2.6 g/dL; Glucose 199 mg/dL (74-106); Potassium 3.7 mmol/L (3.5-5.1); Sodium 142 mmol/L (136-145); Total Protein 5.8 g/dL (6.4-8.2)
[2023-10-16] MEDS: LEVOTHYROXINE SODIUM 88 MCG TABLET PO (05:47)
[2023-10-16] MEDS: LIOTHYRONINE SODIUM 25 MCG TABLET PO (05:47)
[2023-10-16 07:24] LABS: Glucometer 189 mg/dL (74-106)
[2023-10-16] MEDS: INSULIN ASPART 300 UNIT/3 ML PEN SUBQ (07:37)
--- NOTE | 2023-10-16 07:39 | P.DS_ITS ---
DS: Providers Provider Date of admission: 10/14/23 16:14 Primary care physician: Toni Kraft MD DS: Diagnosis Discharge Diagnosis (1) RSV bronchitis: (2) Type 2 diabetes mellitus: (3) Hypertension: (4) Atrial fibrillation: DS: Summary Hospital Course Hospital Course: Patient admitted with sinus tachycardia, uncontrolled hypertension and acute respiratory distress secondary to acute exacerbation of COPD secondary to RSV bronchiolitis. Treated with steroids, antibiotics, aerosol treatments. She did not develop any significant hypoxia. She was low 90s. Overall she does feel somewhat improved today. She is able to ambulate without hypoxia. No progression of the disease. At this point if the patient is ambulating well thi s morning she will be discharged home in improving condition. Medications see list. Follow-up with me later this week. Only other issue was hypomagnesemia which was supplemented, mild dehydration g iven IV fluids, she does have chronic iron deficiency anemia, stool study was ordered but may be not collected prior to discharge. Last issue was uncontrolled diabetes mellitus secondary to steroid use we will monitor this closely as an outpatient Time Spent with Patient Time attestation: Total time spent providing and/or coordinating discharge services: Exam Constitutional Vital Signs, click to edit/add: Last Vital Signs Temp 98.0 F 10/16/23 06:00 Pulse 91 H 10/16/23 06:00 Resp 18 10/16/23 06:00 BP 155/64 H 10/16/23 06:00 Pulse Ox 94 L 10/16/23 06:00 O2 Del Method Room Air 10/16/23 06:00 Documenting provider has reviewed patient's vital signs: yes Common normals: no apparent distress [facility] Common normals: normocephalic Chest Common normals: inspection of chest normal and palpation of chest normal Respiratory Common normals: normal respiratory effort and no retractions Auscultation: rhonchi and wheezes Cardio Common normals: regular rate, regular rhythm and no murmurs DS: Data Data Completed and Pending Labs on day of discharge: Labs from last 24 hours 10/16/23 10/16/23 10/15/23 07:23 04:41 21:10 WBC 8.0 RBC 3.25 L Hgb 10.5 L Hct 32.2 L MCV 99.1 H MCH 32.3 MCHC 32.6 RDW 13.4 Plt Count 169 MPV 11.4 Neut % (Auto) 84.5 H Lymph % (Auto) 9.0 L [place] % (Auto) 6.0 Eos % (Auto) 0.0 L Baso % (Auto) 0.1 L Neut # (Auto) 6.8 H Lymph # (Auto) 0.7 L [place] # (Auto) 0.5 Eos # (Auto) 0.0 Baso # (Auto) 0.0 Abs Immat Gran (auto) 0.03 Imm/Tot Granulo (auto) 0.4 Sodium 142 Potassium 3.7 Chloride 107 Carbon Dioxide 27.1 Anion Gap 11.6 BUN 29.0 H Creatinine 0.96 Est GFR ( Amer) >60 Est GFR (Non-Af Amer) 56 L BUN/Creatinine Ratio 30.2 Glucose 199 H Calcium 8.7 Total Bilirubin 0.3 AST 21 ALT 30 Alkaline Phosphatase 50 Total Protein 5.8 L Albumin 3.2 L Globulin 2.6 Albumin/Globulin Ratio 1.2 POC Glucose 189 H 290 H 10/15/23 10/15/23 16:15 11:30 WBC RBC Hgb Hct MCV MCH MCHC RDW Plt Count MPV Neut % (Auto) Lymph % (Auto) [place] % (Auto) Eos % (Auto) Baso % (Auto) Neut # (Auto) Lymph # (Auto) [place] # (Auto) Eos # (Auto) Baso # (Auto) Abs Immat Gran (auto) Imm/Tot Granulo (auto) Sodium Potassium Chloride Carbon Dioxide Anion Gap BUN Creatinine Est GFR ( Amer) Est GFR (Non-Af Amer) BUN/Creatinine Ratio Glucose Calcium Total Bilirubin AST ALT Alkaline Phosphatase Total Protein Albumin Globulin Albumin/Globulin Ratio POC Glucose 207 H 233 H Discharge Plan Discharge Disposition: Home, Self-Care Condition: Good Discharge Medications: New prednisone 10 mg tablet 40 mg PO DAILY Qty: 32 0RF Rx Instructions: 4/day for 3 days, 3/day for 3 days, 2/day for 3 days, 1/day for 3 days, 1/2 /day for 4 days levofloxacin 750 mg tablet 750 mg PO DAILY 7 Days Qty: 7 0RF Continued albuterol sulfate [Ventolin HFA] 90 mcg/actuation HFA aerosol inhaler 2 puff INHALATION Q8H PRN (Reason: shortness of breath or wheezing) Eliquis 5 mg tablet 5 mg PO Q12H atorvastatin 40 mg tablet 40 mg PO DAILY diclofenac sodium 75 mg tablet,delayed release (DR/EC) 75 mg PO DAILY glimepiride 2 mg tablet 2 mg PO BID furosemide 40 mg tablet 40 mg PO DAILY levothyroxine 88 mcg tablet 88 mcg PO DAILY liothyronine 25 mcg tablet 25 mcg PO DAILY losartan 50 mg tablet 50 mg PO DAILY metoprolol succinate 25 mg tablet extended release 24 hr 12.5 mg PO DAILY Discontinued amoxicillin-pot clavulanate 875-125 mg tablet 1 tab PO Q12H prednisone 20 mg tablet Forms: Portal Instructions
[2023-10-16] MEDS: DICLOFENAC SODIUM 25 MG TABLET.DR 75 MG PO (08:54)
[2023-10-16] MEDS: METOPROLOL SUCCINATE 25 MG TAB.ER.24H 12.5 MG PO (08:55)
[2023-10-16] MEDS: FUROSEMIDE 40 MG TABLET PO (08:55)
[2023-10-16] MEDS: ATORVASTATIN CALCIUM 40 MG TABLET PO (08:55)
[2023-10-16] MEDS: LOSARTAN POTASSIUM 50 MG TABLET PO (08:55)
[2023-10-16] MEDS: APIXABAN 5 MG TABLET PO (08:55)
--- NOTE | 2023-10-16 13:41 | CM.NOTE ---
Medicare Outpatient Observation Notice discussed with pt, pt verbalizes understanding and signs paper. Original given to pt and copy placed in pt's chart.
== END 2023-10-16 09:48 | disposition home or self-care (01) ==
LOC: ER 15:57 → MS 17:04
PROVIDERS: Family Medicine; Admitting Provider Family Medicine; Emergency Provider Emergency Medicine; PCP Family Medicine; Visit Provider Family Medicine
DX: J21.0 Acute bronchiolitis due to respiratory syncytial virus (principal); J44.1 Chronic obstructive pulmonary disease with (acute) exacerbation; Z79.899 Other long term (current) drug therapy; Z79.84 Long term (current) use of oral hypoglycemic drugs; Z87.891 Personal history of nicotine dependence; I10 Essential (primary) hypertension; Z79.01 Long term (current) use of anticoagulants; Z96.611 Presence of right artificial shoulder joint; Z96.659 Presence of unspecified artificial knee joint; Z90.710 Acquired absence of both cervix and uterus; J44.0 Chronic obstructive pulmonary disease with (acute) lower respiratory infection; R06.03 Acute respiratory distress; E83.42 Hypomagnesemia; E86.0 Dehydration; I48.91 Unspecified atrial fibrillation; D50.9 Iron deficiency anemia, unspecified; T38.0X5A Adverse effect of glucocorticoids and synthetic analogues, initial encounter; E11.65 Type 2 diabetes mellitus with hyperglycemia
CPT/HCPCS: 0202U; 36415; 71045; 71046; 80048; 80053; 82948; 83735; 84484; 85025; 87040; 87635; 87811; 93005; 94640; 94667; 94668; 94761; 96365; 96366; 96367; 96368; 96375; 96376; 99285; G0328; G0378; J0456; J2920; J2930

== ENCOUNTER 2023-10-17 11:45 | Emergency (ER) | payer MEDICARE, SELFPAY ==
[2023-10-17] VITALS (26 sets, daily range): BP systolic 93–164; BP diastolic 70–100; PULSE 84–122; RESP 19–34; TEMP 36.8; O2SAT 88–94; BMI 33.3
--- NOTE | 2023-10-17 11:46 | ECG_ITS ---
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1945 Requested By: BEN MATHUR Order Number: [id number] Reading MD: BEN MATHUR Measurements Intervals [place] [facility] Rate: 106 P: -02886 NV: -[id number] QRS: 23 QRSD: 84 T: 67 QT: 308 QTc: 370 Interpretive Statements 37042 Atrial fibrillation with rapid ventricular response 3234 Anteroseptal myocardial infarction, age undetermined 8102 Low QRS voltage in chest leads 9150 abnormal ECG Compared to ECG 10/14/2023 13:16:53 Myocardial infarct finding now present Low QRS voltage now present Aberrant conduction of supraventricular beat(s) no longer present Right-axis deviation no longer present Electronically Signed On 10-20-2023 6:47:53 EST by BEN MATHUR
[2023-10-17 12:03] LABS: Basophils Percent Auto 0.1 % (0.2-2.0); Hematocrit 37.2 % (36.0-48.0); Hemoglobin 11.8 g/dL (12.0-16.0); Immature Granulocytes Abs Auto 0.07 10^3/uL (0.00-0.03); Immature Granulocytes Pct Auto 0.5 % (0.0-0.5); Lymphocytes Absolute Auto 2.7 10^3/uL (1.2-3.8); Lymphocytes Percent Auto 18.8 % (20.5-60.0); Mean Corpuscular HGB Conc 31.7 g/dL (29.9-35.2); Mean Corpuscular Hemoglobin 31.7 pg (26.7-34.0); Mean Platelet Volume 11.4 fL (9.5-13.5); Monocytes Absolute Auto 1.2 10^3/uL (0.3-0.8); Monocytes Percent Auto 8.3 % (1.7-12.0); Neutrophils Absolute Auto 10.5 10^3/uL (1.4-6.5); Neutrophils Percent Auto 72.3 % (43.0-75.0); Platelet Count 220 10^3/uL (150-450); Red Blood Count 3.72 10^6/uL (4.20-5.40); Red Cell Distribution Width 13.6 % (11.0-15.0); White Blood Count 14.5 10^3/uL (4.0-11.0)
--- NOTE | 2023-10-17 12:20 | XR_ITS ---
The [address] [address] Patient Name: ABDON OROZCO MRN: [id number] date: 1945 Sex: F Assigned Patient Location: ED.MAIN Current Patient Location: ER Accession/Order Number: [id number] Exam Date: 10/17/2023 12:15 Report Date: 10/17/2023 12:38 At the request of: BETTY JONES Procedure: XR chest 1V EXAM: XR chest 1V HISTORY: shortness of breath COMPARISON: Chest study dated 10/15/2023 TECHNIQUE: PA view of the chest was obtained with portable technique at 12:20 PM. FINDINGS: Heart is mildly enlarged. Mild patchy density overlying the lower lung cardenas suspect for infiltrate. No obvious pneumothorax. Ebyl-uh-bubcawcl degenerative changes in the dorsal spine with slight convexity to the right. Stabilizing opacity at the right humeral head level. XR/XR chest 1V IMPRESSION: Mild cardiomegaly. Mild patchy infiltrative suggested in the lower lung cardenas. Follow-up as needed. Electronically authenticated by: BRIDGER HURD Date: 10/17/2023 12:38
[2023-10-17 12:26] LABS: Anion Gap 13.4; BUN Creatinine Ratio 31.5; Calcium 9.1 mg/dL (8.5-10.1); Carbon Dioxide 27.4 mmol/L (21.0-32.0); Chloride 103 mmol/L (98-107); Estimated GFR (African America 60 (>=60); Estimated GFR (Non-African Ame 49 (>=60); Glucose 147 mg/dL (74-106); Potassium 3.8 mmol/L (3.5-5.1); Sodium 140 mmol/L (136-145)
[2023-10-17 12:29] LABS: Troponin I High Sensitivity 143.6 pg/mL (4.0-51.3)
[2023-10-17] MEDS: 0.9 % SODIUM CHLORIDE 1,000 ML 1000 ML IV (12:30)
[2023-10-17 12:31] LABS: Magnesium 1.6 mg/dL (1.8-2.4)
--- NOTE | 2023-10-17 12:46 | ED.SOB1 ---
HPI - SOB/Dyspnea General Chief Complaint: Shortness of Breath/Dyspnea Stated Complaint: SHORTNESS OF BREATH Time Seen by Provider: 10/17/23 11:46 Source: patient Mode of arrival: ambulance Limitations: no limitations Related Data Home Medications Medication Instructions Recorded Confirmed albuterol sulfate 90 mcg/actuation 2 puff inhalation Q8H PRN 10/14/23 10/17/23 aerosol inhaler (Ventolin HFA) shortness of breath or wheezing apixaban 5 mg tablet (Eliquis) 5 mg PO Q12H 10/14/23 10/17/23 atorvastatin 40 mg tablet 40 mg PO DAILY 10/14/23 10/17/23 diclofenac sodium 75 mg 75 mg PO DAILY 10/14/23 10/17/23 tablet,delayed release furosemide 40 mg tablet 40 mg PO DAILY 10/14/23 10/17/23 glimepiride 2 mg tablet 2 mg PO BID 10/14/23 10/17/23 levothyroxine 88 mcg tablet 88 mcg PO DAILY 10/14/23 10/17/23 liothyronine 25 mcg tablet 25 mcg PO DAILY 10/14/23 10/17/23 losartan 50 mg tablet 50 mg PO DAILY 10/14/23 10/17/23 metoprolol succinate 25 mg 12.5 mg PO DAILY 10/14/23 10/17/23 tablet,extended release 24 hr Previous Rx's Medication Instructions Recorded levofloxacin 750 mg tablet 750 mg PO DAILY 7 days #7 tabs 10/16/23 prednisone 10 mg tablet 40 mg (4 x 10 mg) PO DAILY #32 tabs 10/16/23 Allergies Allergy/AdvReac Type Severity Reaction Status Date / Time No Known Drug Allergies Allergy Verified 10/17/23 11:47 PFSH PFSH Surgical History History of arthroplasty of right shoulder ?Z96.611 - Presence of right artificial shoulder joint (ICD-10) History of knee replacement ?Z96.659 - Presence of unspecified artificial knee joint (ICD-10) H/O: hysterectomy ?Z90.710 - Acquired absence of both cervix and uterus (ICD-10) Social History Within the past year, how often did you have a drink containing alcohol: 2-3 times a week Within the past year, how many standard drinks containing alcohol did you have on a typical day: 1 or 2 Within the past year, how often did you have six or more drinks on one occasion: less than monthly Total score: 1 Score interpretation: A score of 3 or more indicates drinking is likely to affect patient's safety. Smoking status: Former smoker Non-prescribed substance use: denies use Previous occupational history: [employer] Highest level of school completed/degree received: high school graduate Exam Constitutional Vital Signs, click to edit/add: Last Vital Signs Temp 98.2 F 10/17/23 11:47 Pulse 84 10/17/23 17:00 Resp 22 10/17/23 17:00 BP 129/93 H 10/17/23 16:30 Pulse Ox 92 L 10/17/23 17:00 O2 Del Method Nasal Cannula 10/17/23 11:57 O2 Flow Rate 2 10/17/23 11:57 Course Vital Signs Vital signs: Vital Signs Temperature 98.2 F 10/17/23 11:47 Pulse Rate 122 H 10/17/23 11:47 Respiratory Rate 24 10/17/23 11:47 Blood Pressure 93/70 10/17/23 11:47 Pulse Oximetry 92 L 10/17/23 11:47 Oxygen Delivery Method Nasal Cannula 10/17/23 11:47 Oxygen Delivery Flow Rate 2 10/17/23 11:47 Temperature 98.2 F 10/17/23 11:47 Pulse Rate 84 10/17/23 17:00 Respiratory Rate 22 10/17/23 17:00 Blood Pressure 129/93 H 10/17/23 16:30 Pulse Oximetry 92 L 10/17/23 17:00 Oxygen Delivery Method Nasal Cannula 10/17/23 11:57 Oxygen Delivery Flow Rate 2 10/17/23 11:57 MDM - SOB/Dyspnea MDM Narrative Medical decision making narrative: Patient was placed on quality assurance monitor chassis and EKG obtained. Blood drawn and sent for evaluation. chest x-ray obtained. White blood cell elevated at 14.5. BMP notable for elevated BUN and creatinine. Magnesium low 1.6 - she was ordered to receive IV magnesium. Troponin elevated at 143. BNP elevated at 4199. troponin obtained ?2 on October 14 were normal. BNP was not previously checked. Patient sees Dr Henry with [facility] Cardiology. Call placed to the education and training coordinator radiographer mammographer - Solomon Schulz covering today - and to the transfer line at [facility] to facilitate transfer. Patient takes Eliquis daily. I discussed with Dr Smith @ 1320 - will start heparin drip WITHOUT bolus - follow ACS protocol for dosing. He will call to see about direct admission versus ER to ER transfer - Transfer line told us that there are no beds available at [facility]. I spoke with Dr Yin and he accepted the patient's transfer to cardiology service, pending bed availability. Patient and family informed of results, diagnosis, plan for treatment including transfer to [facility] as soon as possible. They express understanding and agreement. Repeat troponin obtained once it became clear that the patient would not be transferred to [facility] in the near future. She had decrease in her chest pain to 1-2/10. I decided to order 2mg more of morphine to try and get the pain to zero. No rhythm change on the monitor - she remains in atrial fibrillation around 100bpm - varying from 90-105. Patient still stable for transfer @ 1600. Troponin elevated to 2392.5 - I notified Dr Schulz while the ED litigation legal secretary called the transfer line to make the hospitalist aware. No change in treatment recommended. We got bed assignment at 1700 and arrangements made with [facility] to take the patient to [facility] urgently. Patient and family updated on the transfer status. Patient still stable for transfer. Lab Data Attestation: I reviewed the patient's lab results. Labs: Lab Results 10/17/23 10/17/23 Range/Units 11:57 16:15 WBC 14.5 H (4.0-11.0) 10^3/uL RBC 3.72 L (4.20-5.40) 10^6/uL Hgb 11.8 L (12.0-16.0) g/dL Hct 37.2 (36.0-48.0) % MCV 100.0 H (81.0-99.0) fL MCH 31.7 (26.7-34.0) pg MCHC 31.7 (29.9-35.2) g/dL RDW 13.6 (11.0-15.0) % Plt Count 220 (150-450) 10^3/uL MPV 11.4 (9.5-13.5) fL Neut % (Auto) 72.3 (43.0-75.0) % Lymph % (Auto) 18.8 L (20.5-60.0) % [place] % (Auto) 8.3 (1.7-12.0) % Eos % (Auto) 0.0 L (0.9-7.0) % Baso % (Auto) 0.1 L (0.2-2.0) % Neut # (Auto) 10.5 H (1.4-6.5) 10^3/uL Lymph # (Auto) 2.7 (1.2-3.8) 10^3/uL [place] # (Auto) 1.2 H (0.3-0.8) 10^3/uL Eos # (Auto) 0.0 (0.0-0.7) 10^3/uL Baso # (Auto) 0.0 (0.0-0.1) 10^3/uL Abs Immat Gran (auto) 0.07 H (0.00-0.03) 10^3/uL Imm/Tot Granulo (auto) 0.5 (0.0-0.5) % PT 10.9 (9.0-11.6) sec INR 1.03 APTT 23.0 (22.3-36.2) sec Sodium 140 (136-145) mmol/L Potassium 3.8 (3.5-5.1) mmol/L Chloride 103 (98-107) mmol/L Carbon Dioxide 27.4 (21.0-32.0) mmol/L Anion Gap 13.4 BUN 34.0 H (7.0-18.0) mg/dL Creatinine 1.08 H (0.55-1.02) mg/dL Est GFR ( Amer) 60 (>=60) Est GFR (Non-Af Amer) 49 L (>=60) BUN/Creatinine Ratio 31.5 Glucose 147 H (74-106) mg/dL Calcium 9.1 (8.5-10.1) mg/dL Magnesium 1.6 L (1.8-2.4) mg/dL Troponin I High Sens 143.6 H* 2392.5 H* (4.0-51.3) pg/mL NT-Pro-B Natriuret Pep 4199.0 H* (<=1800.0) pg/mL Imaging Data Chest x-ray: Radiologist's impression: Patient Name: ABDON OROZCO MRN: [facility]:[id number] date: 1945 Sex: F Assigned Patient Location: ED.MAIN Current Patient Location: ER Accession/Order Number: [id number] Exam Date: 10/17/2023 12:15 Report Date: 10/17/2023 12:38 At the request of: BETTY JONES Procedure: XR chest 1V EXAM: XR chest 1V HISTORY: shortness of breath COMPARISON: Chest study dated 10/15/2023 TECHNIQUE: PA view of the chest was obtained with portable technique at 12:20 PM. FINDINGS: Heart is mildly enlarged. Mild patchy density overlying the lower lung cardenas suspect for infiltrate. No obvious pneumothorax. [place]-sv-stiwmolv degenerative changes in the dorsal spine with slight convexity to the right. Stabilizing opacity at the right humeral head level. IMPRESSION: Mild cardiomegaly. Mild patchy infiltrative suggested in the lower lung cardenas. Follow-up as needed. Electronically authenticated by: BRIDGER HURD Date: 10/17/2023 12:38 ECG Data Attestation: I personally reviewed and interpreted this ECG as follows: Interpretation: EKG interpretation: Emergency Department physician interpretation. Atrial fibrillation at 106bpm. Normal axis, no ST segment elevation or depression. Critical Care Time Critical Care Time Critical Care Time: Yes Total Critical Care Time: 65 Attestation: Critical Care Time: 45 minutes, critical care time is separate from any procedures that are performed. The following was considered in the determination of critical care but not limited to the level medical decision-making, intensive cardiac and/or respiratory monitor, frequent vital sign monitoring, evaluation of laboratory studies, evaluation of a radiographic studies, oxygen monitoring and constant monitoring. Discharge Plan Discharge Chief Complaint: Shortness of Breath/Dyspnea Clinical Impression: Non-ST elevated myocardial infarction (non-STEMI) Patient Disposition: [facility] Time of Disposition Decision: 13:05 Discharge Location: [facility]
[2023-10-17 13:35] LABS: INR 1.03; Prothrombin Time 10.9 sec (9.0-11.6)
[2023-10-17] MEDS: HEPARIN SODIUM,PORCINE/D5W 25,000 UNIT/500 ML IV.SOLN 16 UNIT IV (13:39)
[2023-10-17] MEDS: FUROSEMIDE 40 MG/4 ML VIAL IVP (13:39)
[2023-10-17] MEDS: MORPHINE SULFATE 2 MG/ML SYRINGE IV ×2 (13:59→16:18)
[2023-10-17] MEDS: NITROGLYCERIN 0.4 MG BOTTLE PO (13:59)
[2023-10-17] MEDS: ONDANSETRON PF 4 MG/2 ML VIAL IV (13:59)
[2023-10-17] MEDS: CEFTRIAXONE 1,000 MG in 0.9 % SODIUM CHLORIDE 50 ML 100 MG IV (14:02)
[2023-10-17 16:39] LABS: Troponin I High Sensitivity 2392.5 pg/mL (4.0-51.3)
== END 2023-10-17 18:15 | disposition short-term general hospital (02) ==
PROVIDERS: Emergency Provider Emergency Medicine; PCP Family Medicine
DX: I21.4 Non-ST elevation (NSTEMI) myocardial infarction (principal); R06.02 Shortness of breath; Z79.899 Other long term (current) drug therapy; Z79.84 Long term (current) use of oral hypoglycemic drugs; Z96.611 Presence of right artificial shoulder joint; Z96.659 Presence of unspecified artificial knee joint; Z90.710 Acquired absence of both cervix and uterus; Z87.891 Personal history of nicotine dependence; Z79.01 Long term (current) use of anticoagulants
CPT/HCPCS: 36415; 51702; 71045; 80048; 83735; 83880; 84484; 85025; 85610; 85730; 93005; 96365; 96375; 96376; 99285

== ENCOUNTER 2023-11-22 09:06 | Outpatient (OUT) | payer MEDICARE, SELFPAY ==
--- OUTSIDE RECORDS SUMMARY | 2023-11-22 09:10 | XMS_ITS | CCD ---
Author Name Unknown Address [address] [facility] [address] [place] [id number] Organization [facility] Care Team Providers Care Pen Tester Name Role Phone DENZEL OHARA Admitting Unavailable DENZEL OHARA Attending Unavailable SELF, REFERRED Referring Unavailable IRAYBEN Primary Care Unavailable HOY, DR CONTRERAS Admitting Unavailable HOY, DR CONTRERAS Attending Unavailable HOY, DR CONTRERAS Primary Care Unavailable HOY, DR CONTRERAS Consulting Unavailable ZIEBER, DR MARQUISE Amado Consulting Unavailable HOY, DR CONTRERAS Admitting Unavailable HOY, DR CONTRERAS Attending Unavailable HOY, DR CONTRERAS Primary Care Unavailable HOY, DR CONTRERAS Consulting Unavailable HOY, DR CONTRERAS Admitting Unavailable HOY, DR CONTRERAS Attending Unavailable HOY, DR CONTRERAS Primary Care Unavailable HOY, DR CONTRERAS Consulting Unavailable HOY, DR CONTRERAS Admitting Unavailable HOY, DR CONTRERAS Attending Unavailable HOY, DR CONTRERAS Primary Care Unavailable HOY, DR CONTRERAS Consulting Unavailable HAY, BETTY Referring Unavailable ERON, WHITLEY Admitting Unavailable BIMALBRAYDEN WOLFF Attending Unavailable GANGLISA, ANNABELLA DAVIS Referring Unavailab le KEATON MIMS Attending Unavailable SAADIA MYLES Attending Unavailable GANGWANI, ANNABELLA DAVIS Referring Unavailab le GANGWANI, ANNABELLA DAVIS Referring Unavailab le MERZA, NOORALDIN Referring Unavailable GANGWANI, ANNABELLA DAVIS Referring Unavailab le PIRKL, BLANCHE Referring Unavailable Allergies Allergy Classification Reported Allergen(s) Allergy Type Date of Onset Reaction(s) Facility (1 source) Amino Acids Drug Allergy [facility] Repository (1 source) Sulfonamides (Antibiotic) Drug allergy (disorder) 6 [facility] Repository (1 source) Sulfonamides (Antibiotic); 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: [SULFA (SULFONAMIDE ANTIBIOTICS)] Propensity to adverse reactions to drug (disorder) 6 [facility] Repository Problems Active Problems Problem Classification Problem Date Documented Da te Episodic/Chronic Acute myocardial infarction (2 sources) Non-ST elevation (NSTEMI) myocardial infarction; 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: [Non-ST elevation (NSTEMI) myocardial infarction] Onset: 10-17-2023 Chronic Congestive heart failure; nonhypertensive (6 sources) Chronic systolic (congestive) heart failure; 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: [Acute on chronic diastolic (congestive) heart failure] Onset: 05-24-2023 Chronic Diabetes mellitus without complication (1 source) Other abnormal glucose; 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: [OTHER ABNORMAL GLUCOSE] Onset: 09-15-2022 Episodic Disorders of lipid metabolism (6 sources) Hyperlipidemia, unspecified; 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: [Mixed hyperlipidemia] Onset: 09-09-2022 Chronic Essential hypertension (2 sources) Essential (primary) hypertension; 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: [Essential (primary) hypertension] Onset: 05-24-2023 Chronic Malaise and fatigue (1 source) Other fatigue; 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: [OTHER FATIGUE] Onset: 09-15-2022 Episodic Nonspecific chest pain (2 sources) Chest pain, unspecified; 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: [Chest pain, unspecified] Onset: 10-17-2023 Episodic Nutritional deficiencies (1 source) Vitamin D deficiency, unspecified; 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: [VITAMIN D DEFICIENCY UNSPECIFIED] Onset: 09-15-2022 Chronic Other lower respiratory disease (1 source) Dyspnea, unspecified; 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: [DYSPNEA UNSPECIFIED] Onset: 11-02-2022 Episodic Other screening for suspected conditions (not mental disorders or infectious disease) (9 sources) Encounter for screening for malignant neoplasm of rectum; 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: [Encounter for screening mammogram for malignant neoplasm of breast] Onset: 06-20-2022 Episodic Pulmonary heart disease (2 sources) Pulmonary hypertension, unspecified; 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: [Pulmonary hypertension, unspecified] Onset: 05-24-2023 Chronic Residual codes; unclassified (2 sources) Obstructive sleep apnea (adult) (pediatric); 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: [Obstructive sleep apnea (adult) (pediatric)] Onset: 05-24-2023 Chronic Unclassified (3 sources) CONTACT W/AND (SUSP) EXPOS COVID-19; 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: [CONTACT W/AND (SUSP) EXPOS COVID-19] Onset: 11-02-2022 Unclassified (1 source) COUGH, UNSPECIFIED; 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: [COUGH, UNSPECIFIED] Onset: 11-02-2022 Unclassified (2 sources) Other persistent atrial fibrillation; 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: [Other persistent atrial fibrillation] Onset: 05-24-2023 Past or Other Problems Problem Classification Problem Date Documented Da te Episodic/Chronic Residual codes; unclassified (1 source) Family history of malignant neoplasm of breast; 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: [FAMILY HX MALIG NEOPLASM OF BREAST] Onset: 06-21-2022 Episodic Residual codes; unclassified (1 source) Family history of malignant neoplasm of ovary; 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: [FAM HX MALIGNANT NEOPLASM OVARY] Onset: 06-21-2022 Episodic Unclassified (1 source) CONTACT W/AND (SUSP) EXPOS COVID-19; 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: [CONTACT W/AND (SUSP) EXPOS COVID-19] Onset: 10-26-2022 Results Test Name Value Interpretation Reference Range Facility Follow-Upon 10-26-2023 Follow-Up [id number] Rachel Orozco 1945 F Date Provider Department Center 10/26/2023 SAADIA TELLEZ CARD [facility] No family history on file Level of Service:17481 [place] OFFICE/OUTPATIENT ESTABLISHED MOD MDM 30 MIN Reason for Visit and Comments: Hospital Follow-up [832] Normal [facility] BASIC METABOLIC PANELon 10-06 Anion gap [Moles/Vol] 9 mmol/L Normal 7-20 [facility] Comment on above: Performed By: #### L [id number] ####[facility] ([facility])[address] [place] [address] Calcium [Mass/Vol] 9.2 mg/dL Normal 8.6-10.3 [facility] Comment on above: Performed By: #### L [id number] ####[facility] ([facility])[address] [place] [address] Chloride [Moles/Vol] 100 mmol/L Normal 98-107 [facility] Comment on above: Performed By: #### L [id number] ####[facility] ([facility])[address] [place] [address] CO2 [Moles/Vol] 35 mmol/L High 21-31 [facility] Comment on above: Performed By: #### L [id number] ####[facility] ([facility])[address] [place] [address] Creatinine [Mass/Vol] 1.07 mg/dL Normal 0.60-1.20 [facility] Comment on above: Performed By: #### L [id number] ####[facility] ([facility])[address] [place] [address] GLOMERULAR FILTRATION RATE ML/MIN/1.73 SQ M.PREDICTED 53.5 mL/min/1.73m*2 Low >60.0 [facility] Comment on above: Result Comment: The [facility]???s estimated glomerular filtration rate (eGFR) will no longer include consideration of race in its calculation. The National Kidney Foundation???s eGFR Task Force developed new recommendations for the estimation of the glomerular filtration rate in the [place] They recommend immediate implementation of the new equation refit without the race variable in all laboratories because the calculation does not include race. In addition to not including race in the calculation and reporting, it included diversity in its development, and has acceptable performance characteristics and potential consequences that do not disproportionately affect any one group of individuals. Performed By: #### L [id number] ####[facility] ([facility])[address] [place] [address] Glucose [Mass/Vol] 100 mg/dL Normal 70-100 [facility] Comment on above: Performed By: #### L [id number] ####[facility] ([facility])[address] [place] [address] Potassium [Moles/Vol] 3.7 mmol/L Normal 3.5-5.1 [facility] Comment on above: Performed By: #### L [id number] ####[facility] ([facility])[address] [place] [address] Sodium [Moles/Vol] 140 mmol/L Normal 136-145 [facility] Comment on above: Performed By: #### L [id number] ####[facility] ([facility])[address] [place] [address] Urea nitrogen [Mass/Vol] 43 mg/dL High 7-25 [facility] Comment on above: Performed By: #### L [id number] ####[facility] [place] [address] UREA NITROGEN/CREATININE (MASS RATIO) IN SER/PLAS 40.2 Normal [facility] Comment on above: Performed By: #### L [id number] ####[facility] ([facility] [place] [address] CBCon 10-20-2023 Erythrocyte distribution width (RBC) [Ratio] 13.5 % Normal 11.5-15.0 [facility] Comment on above: Performed By: #### L [id number] ####[facility] ([facility] [place] [address] ERYTHROCYTE MEAN CORPUSCULAR HEMOGLOBIN CONCENTRATION (G/DL) BY AUTOMATED 32.8 g/dL Normal 32.0-35.0 [facility] Comment on above: Performed By: #### L [id number] ####[facility] ([facility] [place] [address] Hematocrit (Bld) [Volume fraction] 36.0 % Normal 36.0-48.0 [facility] Comment on above: Performed By: #### L [id number] ####[facility] ([facility])[address] [place] [address] Hemoglobin (Bld) [Mass/Vol] 11.8 g/dL Low 12.0-15.0 [facility] Comment on above: Performed By: #### L [id number] ####[facility] ([facility])[address] [place] [address] MCH (RBC) [Entitic mass] 31.8 pg Normal 27.0-33.0 [facility] Comment on above: Performed By: #### L [id number] ####[facility] ([facility])[address] [place] [address] MCV (RBC) [Entitic vol] 97.0 fL Normal 82.0-98.0 [facility] Comment on above: Performed By: #### L [id number] ####[facility] ([facility])[address] [place] [address] PLATELETS (10*3/UL) IN BLOOD AUTOMATED COUNT 239 10*3/uL Normal 150-400 [facility] Comment on above: Performed By: #### L [id number] ####[facility] ([facility])[address] [place] [address] RBC (Bld) [#/Vol] 3.71 10*6/uL Low 3.80-5.00 [facility] Comment on above: Performed By: #### L [id number] ####[facility] ([facility])[address] [place] [address] WBC (Bld) [#/Vol] 10.06 10*3/uL Normal 4.00-10.60 [facility] Comment on above: Performed By: #### L [id number] ####[facility] ([facility])[address] [place] [address] POCT GLUCOSE METER UNSOLICIT ED RESULTSon 10-20-2023 Glucose [Mass/Vol] 124 mg/dL High 70-105 [facility] Comment on above: Order Comment: Waive d Testing in the ED is performed under the ED CLIA certificate #[id number]. Result Comment: [email or web address] Performed By: #### L [id number] ####[facility] ([facility])[address] [place] [address] Glucose [Mass/Vol] 96 mg/dL Normal 70-105 [facility] Comment on above: Order Comment: Waive d Testing in the ED is performed under the ED CLIA certificate #[id number]. Result Comment: [email or web address] Performed By: #### L [id number] ####[facility] ([facility])[address] [place] [address] 30on 10-19-2023 30 The patient is Moderately Stable - Low risk of patient condition declining or worsening The patient's goals for the shift include feel stronger The clinical goals for the shift include able to walk in room to hallway door 3x daily Problem: Pain - Adult Goal: Verbalizes/displays adequate comfort level or baseline comfort level Outcome: Progressing Problem: Safety - Adult Goal: Free from fall injury Outcome: Progressing Problem: Cardiovascular - Adult Goal: Maintains optimal cardiac output and hemodynamic stability Outcome: Progressing Goal: Absence of cardiac dysrhythmias or at baseline Outcome: Progressing Normal [facility] 30 Daily Case Managemen t Update Multidisciplinary rounds have been completed. Barriers to Discharge: Pending medical clearance for discharge. Patient underwent catheterization yesterday. No significant obstructive disease, elevated wedge pressures. 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 Maximize diuresis per Cardiology. PT/OT ordered; await recommendations. Patient from home alone. Diet: Dietary Orders (From admission, onward) Start Ordered 10/18/23 1107 Regular Diet Heart Healthy/HTN, CABG,Stroke, (2gNA, low fat, low cholesterol) Diet effective now Question Answer Comment Room Service? Yes Fat restriction: Heart Healthy/HTN, CABG,Stroke, (2gNA, low fat, low cholesterol) 10/18/23 1106 Physician Expected Discharge Date: 10/21/2023 Discharge Delays: PT Six Click Score: OT Six Click Score: PT Recommendations: OT Recommendations: New Consults: Therapy Orders (From admission, onward) Start Ordered 10/19/23 1156 OT eval and treat Until therapy completed Question: Reason for OT? Answer: discharge planning 10/19/23 1156 10/19/23 1156 PT eval and treat Until therapy completed Question: Reason for PT? Answer: discharge planning 10/19/23 1156 Normal [facility] 30 Problem: Pain - Adul t Goal: Verbalizes/displays adequate comfort level or baseline comfort level Outcome: Progressing Flowsheets (Taken 10/19/2023 0726) Verbalizes/displays adequate comfort level or baseline comfort level: Encourage patient to monitor pain and request assistance Assess pain using appropriate pain scale Administer analgesics based on type and severity of pain and evaluate response Implement non-pharmacological measures as appropriate and evaluate response Consider cultural and social influences on pain and pain management Notify Licensed Independent Practitioner if interventions unsuccessful or patient reports new pain Problem: Safety - Adult Goal: Free from fall injury Outcome: Progressing Flowsheets (Taken 10/19/2023 0800) Free from fall injury: Assess patient frequently for physical needs Identify cognitive and physical deficits and behaviors that affect risk of falls [place] fall precautions as indicated by assessment Educate patient/family on patient safety, including physical limitations Instruct patient to call for assistance with activity based on assessment Modify environment to reduce risk of injury Consider OT/PT consult to assist with strengthening/mobility Problem: Discharge Planning Goal: Discharge to home or other facility with appropriate resources Outcome: Progressing Flowsheets (Taken 10/19/2023744) Discharge to home or other facility with appropriate resources: Identify barriers to discharge with patient and caregiver Arrange for needed discharge resources and transportation as appropriate Identify discharge learning needs (meds, wound care, etc) Arrange for interpreters to assist at discharge as needed Refer to discharge planning if patient needs post-hospital services based on physician order or complex needs related to functional status, cognitive ability or social support system Problem: Chronic Conditions and Co-morbidities Goal: Patient's chronic conditions and co-morbidity symptoms are monitored and maintained or improved Outcome: Progressing Flowsheets (Taken 10/19/2023744) Care Plan - Patient's Chronic Conditions and Co-Morbidity Symptoms are Monitored and Maintained or Improved: Monitor and assess patient's chronic conditions and comorbid symptoms for stability, deterioration, or improvement Collaborate with multidisciplinary team to address chronic and comorbid conditions and prevent exacerbation or deterioration Update acute care plan with appropriate goals if chronic or comorbid symptoms are exacerbated and prevent overall improvement and discharge Problem: Cardiovascular - Adult Goal: Maintains optimal cardiac output and hemodynamic stability Outcome: Progressing Flowsheets (Taken 10/19/2023744) Maintains optimal cardiac output and hemodynamic stability: Monitor blood pressure and heart rate Monitor urine output and notify Licensed Independent Practitioner for values outside of normal range Assess for signs of decreased cardiac output Goal: Absence of cardiac dysrhythmias or at baseline Outcome: Progressing Flowsheets (Taken 10/19/2023744) Absence of cardiac dysrhythmias or at baseline: Monitor cardiac rate and rhythm Assess for signs of decreased cardiac output Administer antiarrhythmia medication and electrolyte replacement as ordered Problem: Hematologic - Adult Goal: Maintains hematologic stability Outcome: Progressing Flowsheets (Taken 10/19/2023744) Maintains hematologic stability: Assess for signs and symptoms of bleeding or hemorrhage Monitor labs for bleeding or clotting disorders Administer blood products/factors as ordered Problem: Genitourinary - Adult Goal: Absence of urinary retention Outcome: Progressing Flowsheets (Taken 10/19/2023744) Absence of urinary retention: Assess patient???s ability to void and empty bladder Monitor intake/output and perform bladder scan as needed Goal: Urinary catheter remains patent Outcome: Progressing Flowsheets (Taken 10/19/2023744) Urinary catheter remains patent: Assess patency of urinary catheter The patient is Moderately Stable - Low risk of patient condition declining or worsening The patient's goals for the shift include feel stronger The clinical goals for the shift include able to walk in room to hallway door 3x daily Normal [facility] 30 The patient is Moderately Stable - Low risk of patient condition declining or worsening The patient's goals for the shift include comfort, rest The clinical goals for the shift include stable vitals, safety Problem: Pain - Adult Goal: Verbalizes/displays adequate comfort level or baseline comfort level Outcome: Progressing Problem: Safety - Adult Goal: Free from fall injury Outcome: Progressing Problem: Cardiovascular - Adult Goal: Maintains optimal cardiac output and hemodynamic stability Outcome: Progressing Goal: Absence of cardiac dysrhythmias or at baseline Outcome: Progressing Normal [facility] BASIC METABOLIC PANELon 12- Anion gap [Moles/Vol] 12 mmol/L Normal 7-20 [facility] Comment on above: Performed By: #### L [id number] #### [facility] ([facility]) [address] [place] [address] Calcium [Mass/Vol] 8.7 mg/dL Normal 8.6-10.3 [facility] Comment on above: Performed By: #### L [id number] #### [facility] ([facility]) [address] [place] [address] Chloride [Moles/Vol] 99 mmol/L Normal 98-107 [facility] Comment on above: Performed By: #### L [id number] #### [facility] ([facility]) [address] [place] [address] CO2 [Moles/Vol] 30 mmol/L Normal 21-31 [facility] Comment on above: Performed By: #### L [id number] #### [facility] ([facility]) [address] [place] [address] Creatinine [Mass/Vol] 1.12 mg/dL Normal 0.60-1.20 [facility] Comment on above: Performed By: #### L [id number] #### [facility] ([facility]) [address] [facility] [address] GLOMERULAR FILTRATION RATE ML/MIN/1.73 SQ M.PREDICTED 50.6 mL/min/1.73m*2 Low >60.0 [facility] Comment on above: Result Comment: The [facility]???s estimated glomerular filtration rate (eGFR) will no longer include consideration of race in its calculation. The National Kidney Foundation???s eGFR Task Force developed new recommendations for the estimation of the glomerular filtration rate in the [place] They recommend immediate implementation of the new equation refit without the race variable in all laboratories because the calculation does not include race. In addition to not including race in the calculation and reporting, it included diversity in its development, and has acceptable performance characteristics and potential consequences that do not disproportionately affect any one group of individuals. Performed By: #### L [id number] #### [facility] ([facility]) [address] [place] [address] Glucose [Mass/Vol] 243 mg/dL High 70-100 [facility] Comment on above: Performed By: #### L [id number] #### [facility] ([facility]) [address] [place] [address] Potassium [Moles/Vol] 3.3 mmol/L Low 3.5-5.1 [facility] Comment on above: Performed By: #### L [id number] #### [facility] ([facility]) [address] [place] [address] Sodium [Moles/Vol] 138 mmol/L Normal 136-145 [facility] Comment on above: Performed By: #### L [id number] #### [facility] ([facility]) [address] [place] [address] Urea nitrogen [Mass/Vol] 40 mg/dL High 7-25 [facility] Comment on above: Performed By: #### L [id number] #### [facility] ([facility]) [address] [facility] [address] UREA NITROGEN/CREATININE (MASS RATIO) IN SER/PLAS 35.7 Normal [facility] Comment on above: Performed By: #### L [id number] #### [facility] ([facility]) [address] [facility] [place] [address] MAGNESIUMon 10-19-2023 Magnesium [Mass/Vol] 1.6 mg/dL Low 1.9-2.7 [facility] Comment on above: Performed By: #### L [id number] #### [facility] ([facility]) [address] [facility] [place] [address] PHOSPHORUSon 10-19-2023 Magnesium [Mass/Vol] 3.3 mg/dL Normal 2.5-5.0 [facility] Comment on above: Performed By: #### L [id number] #### [facility] ([facility]) [address] [facility] [place] [address] POCT GLUCOSE METER UNSOLICIT ED RESULTSon 10-19-2023 Glucose [Mass/Vol] 252 mg/dL High 70-105 [facility] Comment on above: Order Comment: Waive d Testing in the ED is performed under the ED CLIA certificate #[id number]. Result Comment: [email or web address] in Performed By: #### L [id number] ####[facility] ([facility])[address] [facility] [place] [address] Glucose [Mass/Vol] 137 mg/dL High 70-105 [facility] Comment on above: Order Comment: Waive d Testing in the ED is performed under the ED CLIA certificate #[id number]. Result Comment: [email or web address] Performed By: #### L [id number] ####[facility] ([facility])[address] [place] [address] Glucose [Mass/Vol] 203 mg/dL High 70-105 [facility] Comment on above: Order Comment: Waive d Testing in the ED is performed under the ED CLIA certificate #[id number]. Result Comment: [email or web address] Performed By: #### L [id number] ####[facility] ([facility])[address] [place] [address] Glucose [Mass/Vol] 162 mg/dL High 70-105 [facility] Comment on above: Order Comment: Waive d Testing in the ED is performed under the ED CLIA certificate #[id number]. Result Comment: [email or web address] Performed By: #### L [id number] #### [facility] ([facility]) [address] [place] [address] TROPONIN Ion 10-19-2023 Troponin I.cardiac [Mass/Vol] 3.09 ng/mL Critically high 0.00-0.04 [facility] Comment on above: Result Comment: M-AK EVIOUS CRITICAL RESULT Previous result verified on 10/18/2023 0912 on specimen/case [id number] called with component Troponin I for procedure Troponin I with value 3.51 ng/mL. Performed By: #### L [id number] #### [facility] ([facility]) [address] [place] [address] 30on 10-18-2023 30 Daily Case Managemen t Update Multidisciplinary rounds have been completed. Barriers to Discharge: Pending clinical course and improvement in clinical condition. Patient underwent right heart catheterization and coronary angiogram for NSTEMI today. Await cardiology recommendations. Diet: Dietary Orders (From admission, onward) Start Ordered 10/18/23 1107 Regular Diet Heart Healthy/HTN, CABG,Stroke, (2gNA, low fat, low cholesterol) Diet effective now Question Answer Comment Room Service? Yes Fat restriction: Heart Healthy/HTN, CABG,Stroke, (2gNA, low fat, low cholesterol) 10/18/23 1106 Physician Expected Discharge Date: 10/21/2023 Discharge Delays: PT Six Click Score: OT Six Click Score: PT Recommendations: OT Recommendations: New Consults: Normal [facility] 30 Problem: Pain - Adul t Goal: Verbalizes/displays adequate comfort level or baseline comfort level Outcome: Progressing Problem: Safety - Adult Goal: Free from fall injury Outcome: Progressing Flowsheets (Taken 10/18/2023 0800) Free from fall injury: Assess patient frequently for physical needs [place] fall precautions as indicated by assessment Identify cognitive and physical deficits and behaviors that affect risk of falls Educate patient/family on patient safety, including physical limitations Instruct patient to call for assistance with activity based on assessment Modify environment to reduce risk of injury Consider OT/PT consult to assist with strengthening/mobility Problem: Discharge Planning Goal: Discharge to home or other facility with appropriate resources Outcome: Progressing Flowsheets (Taken 10/18/2023799) Discharge to home or other facility with appropriate resources: Identify barriers to discharge with patient and caregiver Arrange for interpreters to assist at discharge as needed Identify discharge learning needs (meds, wound care, etc) Arrange for needed discharge resources and transportation as appropriate Refer to discharge planning if patient needs post-hospital services based on physician order or complex needs related to functional status, cognitive ability or social support system Problem: Chronic Conditions and Co-morbidities Goal: Patient's chronic conditions and co-morbidity symptoms are monitored and maintained or improved Outcome: Progressing Flowsheets (Taken 10/18/2023799) Care Plan - Patient's Chronic Conditions and Co-Morbidity Symptoms are Monitored and Maintained or Improved: Monitor and assess patient's chronic conditions and comorbid symptoms for stability, deterioration, or improvement Collaborate with multidisciplinary team to address chronic and comorbid conditions and prevent exacerbation or deterioration Update acute care plan with appropriate goals if chronic or comorbid symptoms are exacerbated and prevent overall improvement and discharge Problem: Cardiovascular - Adult Goal: Maintains optimal cardiac output and hemodynamic stability Outcome: Progressing Flowsheets (Taken 10/18/2023799) Maintains optimal cardiac output and hemodynamic stability: Monitor blood pressure and heart rate Monitor urine output and notify Licensed Independent Practitioner for values outside of normal range Assess for signs of decreased cardiac output Goal: Absence of cardiac dysrhythmias or at baseline Outcome: Progressing Flowsheets (Taken 10/18/2023799) Absence of cardiac dysrhythmias or at baseline: Monitor cardiac rate and rhythm Assess for signs of decreased cardiac output Administer antiarrhythmia medication and electrolyte replacement as ordered Problem: Hematologic - Adult Goal: Maintains hematologic stability Outcome: Progressing Flowsheets (Taken 10/18/2023799) Maintains hematologic stability: Assess for signs and symptoms of bleeding or hemorrhage Monitor labs for bleeding or clotting disorders Administer blood products/factors as ordered Problem: Genitourinary - Adult Goal: Absence of urinary retention Outcome: Progressing Flowsheets (Taken 10/18/2023 08) Absence of urinary retention: Assess patient???s ability to void and empty bladder Monitor intake/output and perform bladder scan as needed Goal: Urinary catheter remains patent Outcome: Progressing Flowsheets (Taken 10/18/2023 0800) Urinary catheter remains patent: Assess patency of urinary catheter The patient is Moderately Stable - Low risk of patient condition declining or worsening The patient's goals for the shift include comfort The clinical goals for the shift include receive cardiac cath without complications Normal [facility] 30 Problem: Pain - Adul t Goal: Verbalizes/displays adequate comfort level or baseline comfort level Outcome: Progressing Problem: Safety - Adult Goal: Free from fall injury Outcome: Progressing Problem: Hematologic - Adult Goal: Maintains hematologic stability Outcome: Progressing The patient is Moderately Unstable - Medium risk of patient condition declining or worsening The patient's goals for the shift include comfort, rest The clinical goals for the shift include stable vitals, safety Normal [facility] APTTon 10-18-2023 ACTIVATED PARTIAL THROMBOPLASTIN TIME IN PPP BY COAGULATION ASSAY 140.1 Seconds Critically high 25.0-35.0 [facility] Comment on above: Result Comment: Clin ical significance of the APTT is questionable in the presence of heparin. Performed By: #### L [id number] #### [facility] ([facility]) [address] [place] [address] ACTIVATED PARTIAL THROMBOPLASTIN TIME IN PPP BY COAGULATION ASSAY 174.6 Seconds Critically high 25.0-35.0 [facility] Comment on above: Order Comment: Check aPTT every 6 hours while on heparin infusion, or per protocol. Result Comment: Clin ical significance of the APTT is questionable in the presence of heparin. Performed By: #### L [id number] #### [facility] ([facility]) [address] [place] [address] B-TYPE NATRIURETIC PEPTIDEon 10-18-2023 Natriuretic peptide B (Bld) [Mass/Vol] 1127 pg/mL High 0-100 [facility] Comment on above: Performed By: #### L [id number] #### [facility] ([facility]) [address] [place] [address] CBCon 10-18-2023 Erythrocyte distribution width (RBC) [Ratio] 13.5 % Normal 11.5-15.0 [facility] Comment on above: Performed By: #### L [id number] #### [facility] [address] [place] [address] ERYTHROCYTE MEAN CORPUSCULAR HEMOGLOBIN CONCENTRATION (G/DL) BY AUTOMATED 32.3 g/dL Normal 32.0-35.0 [facility] Comment on above: Performed By: #### L [id number] #### [facility] [address] [place] [address] Hematocrit (Bld) [Volume fraction] 34.4 % Low 36.0-48.0 [facility] Comment on above: Performed By: #### L [id number] #### [facility] [address] [place] [address] Hemoglobin (Bld) [Mass/Vol] 11.1 g/dL Low 12.0-15.0 [facility] Comment on above: Performed By: #### L [id number] #### [facility] [address] [place] [address] MCH (RBC) [Entitic mass] 31.2 pg Normal 27.0-33.0 [facility] Comment on above: Performed By: #### L [id number] #### [facility] [address] [place] [address] MCV (RBC) [Entitic vol] 96.6 fL Normal 82.0-98.0 [facility] Comment on above: Performed By: #### L [id number] #### [facility] ([facility]) [address] [place] [address] PLATELETS (10*3/UL) IN BLOOD AUTOMATED COUNT 205 10*3/uL Normal 150-400 [facility] Comment on above: Performed By: #### L [id number] #### [facility] ([facility]) [address] [place] [address] RBC (Bld) [#/Vol] 3.56 10*6/uL Low 3.80-5.00 [facility] Comment on above: Performed By: #### L [id number] #### [facility] ([facility]) [address] [place] [address] WBC (Bld) [#/Vol] 10.64 10*3/uL High 4.00-10.60 [facility] Comment on above: Performed By: #### L [id number] #### [facility] ([facility]) [address] [place] [address] CONSULTon 10-18-2023 CONSULT -- Attestation signed by Graeme Vivas MD at 10/18/2023 5:46 PM I personally saw and examined the patient on the same date of service as resident/fellow Dr. Reid. I discussed the findings and therapeutic plan with the resident/fellow Dr. Glass. I agree with the documentation, except for any edits/updates below. Teaching Physician's Revisions: Discussed the case with the ER physician from [facility] multiple times, when the cardiac enzyme increase significantly, the patient was transferred to the [facility] after discussing it with Dr. Henson. She with found to have NSTEMI with no significant obstructive disease. However her wedge pressure was significantly elevated. I just reviewed the echocardiogram and it showed ballooning consistent with stress-induced cardiomyopathy or Takotsubo cardiomyopathy. Will maximize diuresis in the management of the acute systolic heart failure. Cardiology Consult Note Reason for Consult: NSTEMI HPI: Rachel Orozco is a 78 y.o. female patient is presenting for worsening shortness of breath. Past medical history includes: Permanent Afib (on eliquis) HLD DMII Hypothyroidism HTN BELLE Pulmonary hypertension History goes back to last week, when the patient started having a dry cough and shortness of breath. She presented at [facility] for [facility] pneumonia for two days. She was discharged on Monday with mild improvement in her symptoms. Yesterday, patient started experiencing worsening dyspnea episodes, at rest and exertion. She also reports chest discomfort, retrosternal, non-radiating, of severity 5/10, relieved on nitrotabs. At [facility], High sensitivity troponin-143.6---2392. 5/ EKG-afib. Patient was seen and examined today, She reports mild chest pain, associated with dyspnea. She is on 2L NC/heparin drip. Labs showed troponin level of 3.96--4.29--4.06. EKG showed afib/PVCs/T wave inversions. Cardiology ROS: GENERAL: Denies fever, chills, night sweats, weight loss. CARDIOVASCULAR: Please refer to HPI RESPIRATORY: Denies SOB, coughing, wheezing GI: Denies abdominal pain, nausea/vomiting. PSYCH: Denies anxiety. Past Medical History She has no past medical history on file. Surgical History She has no past surgical history on file. Social History She reports that she has been smoking cigarettes. She has never used smokeless tobacco. No history on file for alcohol use and drug use. Family History No family history on file. Allergies Sulfa (sulfonamide antibiotics) Medications Medications Prior to Admission Medication Sig Dispense Refill Last Dose apixaban (Eliquis) 5 mg tablet Take 1 tablet by mouth in the morning and at bedtime. atorvastatin (Lipitor) 40 mg tablet Take 40 mg by mouth in the morning. biotin 10,000 mcg capsule Take 1 capsule by mouth in the morning. diclofenac (Voltaren) 75 mg EC tablet Take 1 tablet by mouth in the morning. fenofibrate micronized (Lofibra) 134 mg capsule Take 134 mg by mouth in the morning. ferrous sulfate 325 (65 Fe) MG tablet Take 65 mg by mouth with breakfast. furosemide (Lasix) 40 mg tablet Take 1 tablet by mouth in the morning. glimepiride (Amaryl) 2 mg tablet Take 2 mg by mouth with breakfast. levothyroxine (Synthroid, Levoxyl) 88 mcg tablet Take 1 tablet by mouth in the morning. liothyronine (Cytomel) 5 mcg tablet Take 1 tablet by mouth in the morning. loratadine (Claritin) 10 mg tablet Take 10 mg by mouth in the morning. losartan (Cozaar) 50 mg tablet Take 1 tablet by mouth in the morning. metoprolol succinate XL (Toprol-XL) 25 mg 24 hr tablet Take 25 mg by mouth in the morning. oxybutynin XL (Ditropan-XL) 10 mg 24 hr tablet Take 10 mg by mouth in the morning. potassium chloride CR (Klor-Con M10) 10 mEq ER tablet TAKE 2 TABLETS TWICE A DAY 360 tablet 3 Last Recorded Vitals Patient Vitals for the past 24 hrs: BP Temp Temp src Pulse Resp SpO2 Height Weight 10/18/23 0630 118/82 -- -- 77 15 93 % -- -- 10/18/23 0600 124/69 -- -- 83 20 96 % -- -- 10/18/23 0530 122/82 -- -- 84 26 96 % -- -- 10/18/23 0500 125/86 -- -- 88 16 (!) 89 % -- -- 10/18/23 0430 125/79 -- -- 77 22 96 % -- -- 10/18/23 0400 120/83 -- -- 81 21 92 % -- -- 10/18/23 0340 123/74 -- -- 77 17 96 % -- -- 10/18/23 0330 (!) 129/115 -- -- 79 20 96 % -- -- 10/18/23 0300 123/76 -- -- 79 17 96 % -- -- 10/18/23 0230 132/80 -- -- 87 17 97 % -- -- 10/18/23 0200 132/87 -- -- 75 18 96 % -- -- 10/18/23 0130 135/86 -- -- 92 22 96 % -- -- 10/18/23 0100 125/79 -- -- 88 18 96 % -- -- 10/18/23 0000 137/90 -- -- 83 25 97 % -- -- 10/17/232199 125/85 -- -- 92 23 95 % -- -- 10/17/23 2150 (!) 127/92 -- -- 94 (!) 28 96 % -- -- 10/17/232129 139/87 -- -- 96 26 96 % -- -- 10/17/23 2100 (!) 142/96 -- -- 92 24 97 % -- -- 10/17/23 1940 (!) 1 (more content not included)... [facility] HPon 10-18-2023 HP -- Attestation signed by Antony Henson MD at 10/18/2023 9:40 AM Agree Diagnosed with NSTEMI and acute systolic heart failure Proceed with RHC and coronary angiogram H&P reviewed. The patient was examined and there are no changes to the H&P. 78 y.o. female with PMH significant for permanent Afib, HLD, DMII, Hypothyroidism, HTN, BELLE, Pul HTN who was admitted from [facility] where she presented with several days history of progressive shortness of breath retrosternal chest discomfort described by her as dull ache at times burning nonradiating associated for dyspnea. Given her multiple co-morbidities and anginal equivalent pain we will proceed with RHC/LHC to measure left and right sided pressure and also look for any progression of CAD in setting of NSTEMI. [facility] POCT GLUCOSE METER UNSOLICIT ED RESULTSon 10-18-2023 Glucose [Mass/Vol] 307 mg/dL High 70-105 [facility] Comment on above: Order Comment: Waive d Testing in the ED is performed under the ED CLIA certificate #[id number]. Result Comment: [email or web address] Performed By: #### L [id number] #### [facility] ([facility]) [address] [place] [address] Glucose [Mass/Vol] 196 mg/dL High 70-105 [facility] Comment on above: Order Comment: Waive d Testing in the ED is performed under the ED CLIA certificate #[id number]. Result Comment: [email or web address] Performed By: #### L [id number] ####[facility] ([facility])[address] [place] [address] Glucose [Mass/Vol] 201 mg/dL High 70-105 [facility] Comment on above: Order Comment: Waive d Testing in the ED is performed under the ED CLIA certificate #[id number]. Result Comment: [email or web address] Performed By: #### L [id number] #### [facility] ([facility]) [address] [place] [address] T4, FREEon 10-18-2023 THYROXINE (T4) FREE (NG/DL) IN SER/PLAS 0.86 ng/dL Normal 0.71-1.85 [facility] Comment on above: Performed By: #### L [id number] #### [facility] ([facility]) [address] [place] [address] TROPONIN Ion 10-18-2023 Troponin I.cardiac [Mass/Vol] 3.51 ng/mL Critically high 0.00-0.04 [facility] Comment on above: Result Comment: Prev ious result verified on 10/18/2023 0543 on specimen/case [id number] called with component Troponin I for procedure Troponin I with value 4.06 ng/mL. Performed By: #### L [id number] #### [facility] ([facility]) [address] [place] [address] Troponin I.cardiac [Mass/Vol] 4.06 ng/mL Critically high 0.00-0.04 [facility] Comment on above: Result Comment: M-AK EVIOUS CRITICAL RESULT Previous result verified on 10/18/2023 0135 on specimen/case [id number] called with component Troponin I for procedure Troponin I with value 4.29 ng/mL. Performed By: #### L [id number] #### [facility] ([facility]) [address] [place] [address] Troponin I.cardiac [Mass/Vol] 4.29 ng/mL Critically high 0.00-0.04 [facility] Comment on above: Result Comment: M-AK EVIOUS CRITICAL RESULT Previous result verified on 10/17/2023 215 on specimen/case [id number] called with component Troponin I for procedure Troponin I with value 3.96 ng/mL. Performed By: #### L [id number] ####[facility] ([facility])[address] [place] [address] TSH3 REFLEX TO FT4on 023 THYROTROPIN (MIU/L) IN SER/PLAS BY DETECTION LIMIT <= 0.05 MIU/L 0.02 mIU/L Low 0.34-5.60 [facility] Comment on above: Performed By: #### L [id number] #### [facility] ([facility]) [address] [place] [address] CBC WITH AUTO DIFFERENTIALon 10-17-2023 Basophils (Bld) [#/Vol] 0.01 10*3/uL Normal 0.00-0.20 [facility] Comment on above: Performed By: #### L [id number] #### [facility] ([facility]) [address] [place] [address] Basophils/100 WBC (Bld) 0.1 % Normal 0.0-1.0 [facility] Comment on above: Performed By: #### L [id number] #### [facility] ([facility]) [address] [place] [address] Eosinophils (Bld) [#/Vol] 0.00 10*3/uL Normal 0.00-0.50 [facility] Comment on above: Performed By: #### L [id number] #### [facility] ([facility]) [address] [place] [address] Eosinophils/100 WBC (Bld) 0.0 % Normal 0.0-6.0 [facility] Comment on above: Performed By: #### L [id number] #### [facility] [address] [place] [address] Erythrocyte distribution width (RBC) [Ratio] 13.7 % Normal 11.5-15.0 [facility] Comment on above: Performed By: #### L [id number] #### [facility] [address] [place] [address] ERYTHROCYTE MEAN CORPUSCULAR HEMOGLOBIN CONCENTRATION (G/DL) BY AUTOMATED 32.5 g/dL Normal 32.0-35.0 [facility] Comment on above: Performed By: #### L [id number] #### [facility] ([facility] [address] [place] [address] Hematocrit (Bld) [Volume fraction] 36.6 % Normal 36.0-48.0 [facility] Comment on above: Performed By: #### L [id number] #### [facility] ([facility]) [address] [place] [address] Hemoglobin (Bld) [Mass/Vol] 11.9 g/dL Low 12.0-15.0 [facility] Comment on above: Performed By: #### L [id number] #### [facility] ([facility]) [address] [place] [address] Immature granulocytes (Bld) [#/Vol] 0.10 10*3/uL Normal 0.00-0.20 [facility] Comment on above: Performed By: #### L [id number] #### [facility] ([facility]) [address] [place] [address] Immature granulocytes/100 WBC (Bld) 0.8 % Normal 0.0-1.0 [facility] Comment on above: Performed By: #### L [id number] #### [facility] ([facility]) [address] [place] [address] Lymphocytes (Bld) [#/Vol] 1.21 10*3/uL Normal 1.20-4.00 [facility] Comment on above: Performed By: #### L [id number] #### [facility] ([facility]) [address] [place] [address] Lymphocytes/100 WBC (Bld) 9.5 % Low 20.0-45.0 [facility] Comment on above: Performed By: #### L [id number] #### [facility] ([facility]) [address] [address] MCH (RBC) [Entitic mass] 31.5 pg Normal 27.0-33.0 [facility] Comment on above: Performed By: #### L [id number] #### [facility] ([facility]) [address] [place] [address] MCV (RBC) [Entitic vol] 96.8 fL Normal 82.0-98.0 [facility] Comment on above: Performed By: #### L [id number] #### [facility] ([facility]) [address] [place] [address] Monocytes (Bld) [#/Vol] 0.54 10*3/uL Normal 0.10-1.00 [facility] Comment on above: Performed By: #### L [id number] #### [facility] ([facility]) [address] [place] [address] Monocytes/100 WBC (Bld) 4.2 % Low 5.0-12.0 [facility] Comment on above: Performed By: #### L [id number] #### [facility]) [address] [place] [address] Neutrophils (Bld) [#/Vol] 10.92 10*3/uL High 1.60-7.60 [facility] Comment on above: Performed By: #### L [id number] #### [facility] [address] [place] [address] Neutrophils/100 WBC (Bld) 85.4 % High 40.0-72.0 [facility] Comment on above: Performed By: #### L [id number] #### [facility] ([facility]) [address] [place] [address] NRBC (PER 100 WBCS) BY AUTOMATED COUNT 0.0 % Normal 0 [facility] Comment on above: Performed By: #### L [id number] #### [facility] ([facility]) [address] [place] [address] PLATELETS (10*3/UL) IN BLOOD AUTOMATED COUNT 225 10*3/uL Normal 150-400 [facility] Comment on above: Performed By: #### L [id number] #### [facility] ([facility]) [address] [place] [address] RBC (Bld) [#/Vol] 3.78 10*6/uL Low 3.80-5.00 [facility] Comment on above: Performed By: #### L [id number] #### [facility] ([facility]) [address] [place] [address] WBC (Bld) [#/Vol] 12.78 10*3/uL High 4.00-10.60 [facility] Comment on above: Performed By: #### L [id number] #### [facility] [address] [place] [address] COMPREHENSIVE METABOLIC PANE Henok 10-17-2023 Albumin [Mass/Vol] 4.2 g/dL Normal 3.5-5.7 [facility] Comment on above: Performed By: #### L [id number] ####[facility] [place] [address] ALP [Catalytic activity/Vol] 50 U/L Normal 34-104 [facility] Comment on above: Performed By: #### L [id number] ####[facility] ([facility])[address] [place] [address] ALT [Catalytic activity/Vol] 45 U/L Normal 7-52 [facility] Comment on above: Performed By: #### L [id number] ####[facility] ([facility])[address] [place] [address] Anion gap [Moles/Vol] 16 mmol/L Normal 7-20 [facility] Comment on above: Performed By: #### L [id number] ####[facility] ([facility])[address] [place] [address] AST [Catalytic activity/Vol] 35 U/L Normal 13-39 [facility] Comment on above: Performed By: #### L [id number] ####[facility] ([facility])[address] [place] [address] Bilirubin [Mass/Vol] 0.5 mg/dL Normal 0.3-1.0 [facility] Comment on above: Performed By: #### L [id number] ####[facility] ([facility])[address] [place] [address] Calcium [Mass/Vol] 9.0 mg/dL Normal 8.6-10.3 [facility] Comment on above: Performed By: #### L [id number] ####[facility] ([facility])[address] [place] [address] Chloride [Moles/Vol] 102 mmol/L Normal 98-107 [facility] Comment on above: Performed By: #### L [id number] ####[facility] ([facility])[address] [place] [address] CO2 [Moles/Vol] 24 mmol/L Normal 21-31 [facility] Comment on above: Performed By: #### L [id number] ####[facility] ([facility])[address] [place] [address] Creatinine [Mass/Vol] 1.13 mg/dL Normal 0.60-1.20 [facility] Comment on above: Performed By: #### L [id number] ####[facility] ([facility])[address] [place] [address] GLOMERULAR FILTRATION RATE ML/MIN/1.73 SQ M.PREDICTED 50.1 mL/min/1.73m*2 Low >60.0 [facility] Comment on above: Result Comment: The [facility]???s estimated glomerular filtration rate (eGFR) will no longer include consideration of race in its calculation. The [employer]???s eGFR Task Force developed new recommendations for the estimation of the glomerular filtration rate in the [place] They recommend immediate implementation of the new equation refit without the race variable in all laboratories because the calculation does not include race. In addition to not including race in the calculation and reporting, it included diversity in its development, and has acceptable performance characteristics and potential consequences that do not disproportionately affect any one group of individuals. Performed By: #### L [id number] ####[facility] ([facility])[address] [place] [address] Glucose [Mass/Vol] 243 mg/dL High 70-100 [facility] Comment on above: Performed By: #### L [id number] ####[facility] ([facility])[address] [place] [address] Potassium [Moles/Vol] 3.9 mmol/L Normal 3.5-5.1 [facility] Comment on above: Performed By: #### L [id number] ####[facility] ([facility])[address] [place] [address] Protein [Mass/Vol] 6.4 g/dL Normal 6.0-8.3 [facility] Comment on above: Performed By: #### L [id number] ####[facility] ([facility])[address] [place] [address] Sodium [Moles/Vol] 138 mmol/L Normal 136-145 [facility] Comment on above: Performed By: #### L [id number] ####[facility] ([facility])[address] [place] [address] Urea nitrogen [Mass/Vol] 31 mg/dL High 7-25 [facility] Comment on above: Performed By: #### L [id number] ####[facility] ([facility])[address] [place] [address] UREA NITROGEN/CREATININE (MASS RATIO) IN SER/PLAS 27.4 Normal [facility] Comment on above: Performed By: #### L [id number] ####[facility] ([facility])[address] [place] [address] D-DIMER, QUANTITATIVEon 10-06 FIBRIN D-DIMER (UG/L FEU) IN PLATELET POOR PLASMA <0.27 Low 0.27-0.49 [facility] Comment on above: Order Comment: D-Dim er values of less than 0.50 ug/ml (FEU) are considered to be a negative predictor of thrombosis. However, the D-Dimer result should be used in conjunction with pretest probability and should not be used alone to diagnose a thrombotic event. Performed By: #### L [id number] ####[facility] ([facility])[address] [place] [address] HPon 10-17-2023 HP History Of Present Illness michoacano Orozco is an 78 y.o. female admitted from [facility] where she presented with several days history of progressive shortness of breath retrosternal chest discomfort described by her as dull ache at times burning nonradiating associated for dyspnea Patient was recently discharged from [facility] after being admitted for RSV pneumonia since that time she has been having shortness of breath which gets worse with activity she denies any fever chills sinus trouble sore throat she denies any dizziness lightheadedness she feels tired she has history of atrial fibrillation and has been on Eliquis and metoprolol she denies any cardioversion in the past at [facility] she had 2 sets of troponin done 0 these are high-sensitivity troponin 0-hour was 143.6 and subsequent troponin peaked at 2392.5 white count of 14.5 hemoglobin 11.8 hematocrit 37.2 and absolute neutrophil count of 10.5 her BNP was 4199 her EKG showed A-fib with no acute change as per the ER note Patient was started on IV heparin. Past Medical History She has no past medical history on file. Surgical History She has no past surgical history on file. Social History She reports that she has been smoking cigarettes. She has never used smokeless tobacco. No history on file for alcohol use and drug use. Family History No family history on file. Allergies Sulfa (sulfonamide antibiotics) Medications Medications Prior to Admission Medication Sig Dispense Refill Last Dose apixaban (Eliquis) 5 mg tablet Take 1 tablet by mouth in the morning and at bedtime. atorvastatin (Lipitor) 40 mg tablet Take 40 mg by mouth in the morning. biotin 10,000 mcg capsule Take 1 capsule by mouth in the morning. diclofenac (Voltaren) 75 mg EC tablet Take 1 tablet by mouth in the morning. fenofibrate micronized (Lofibra) 134 mg capsule Take 134 mg by mouth in the morning. ferrous sulfate 325 (65 Fe) MG tablet Take 65 mg by mouth with breakfast. furosemide (Lasix) 40 mg tablet Take 1 tablet by mouth in the morning. glimepiride (Amaryl) 2 mg tablet Take 2 mg by mouth with breakfast. levothyroxine (Synthroid, Levoxyl) 88 mcg tablet Take 1 tablet by mouth in the morning. liothyronine (Cytomel) 5 mcg tablet Take 1 tablet by mouth in the morning. loratadine (Claritin) 10 mg tablet Take 10 mg by mouth in the morning. losartan (Cozaar) 50 mg tablet Take 1 tablet by mouth in the morning. metoprolol succinate XL (Toprol-XL) 25 mg 24 hr tablet Take 25 mg by mouth in the morning. oxybutynin XL (Ditropan-XL) 10 mg 24 hr tablet Take 10 mg by mouth in the morning. potassium chloride CR (Klor-Con M10) 10 mEq ER tablet TAKE 2 TABLETS TWICE A DAY 360 tablet 3 Review of Systems Constitutional: Positive for activity change and fatigue. HENT: Negative. Eyes: Negative. Respiratory: Negative for cough, shortness of breath and wheezing. Cardiovascular: Positive for chest pain and palpitations. Gastrointestinal: Negative. Endocrine: Negative. Genitourinary: Negative. Musculoskeletal: Negative. Allergic/Immunologic: Negative. Neurological: Negative. Hematological: Negative. Psychiatric/Behavioral : Negative. Last Recorded Vitals Visit Vitals BP 115/83 Pulse 80 Temp 36.5 ???C (97.7 ???F) (Temporal) Resp 22 Ht 1.6 m (5' 2.99 ) Wt 88.6 kg (195 lb 5.2 oz) SpO2 94% BMI 34.61 kg/m??? Smoking Status Every Day BSA 1.98 m??? Physical Exam Constitutional: Appearance: Normal appearance. She is normal weight. HENT: Head: Normocephalic and atraumatic. Right Ear: Tympanic membrane, ear canal and external ear normal. Left Ear: Tympanic membrane, ear canal and external ear normal. Nose: Nose normal. Mouth/Throat: Mouth: Mucous membranes are moist. Pharynx: Oropharynx is clear. Eyes: Extraocular Movements: Extraocular movements intact. Conjunctiva/sclera: Conjunctivae normal. Pupils: Pupils are equal, round, and reactive to light. Neck: Comments: A waves jvd0 Pulmonary: Effort: Pulmonary effort is normal. Breath sounds: Wheezing present. Abdominal: General: Abdomen is flat. Bowel sounds are normal. Palpations: Abdomen is soft. Musculoskeletal: General: No tenderness. Normal range of motion. Skin: General: Skin is warm and dry. Neurological: General: No focal deficit present. Mental Status: She is alert and oriented to person, place, and time. Psychiatric: Mood and Affect: Mood normal. Behavior: Behavior normal. Relevant Lab Results Lab Results Component Value Date NA 138 10/17/2023 K 3.9 10/17/2023 CL 102 10/17/2023 CO2 24 10/17/2023 BUN 31 (H) 10/17/2023 CREATININE 1.13 10/17/2023 GLUCOSE 243 (H) 10/17/2023 CALCIUM 9.0 10/17/2023 ANIONGAP 16 10/17/2023 EGFR 50.1 (L) 10/17/2023 BCR 27.4 10/17/2023 Non-ST MARTIN hide discussed with cardiology will repeat troponin if they are 5 or above patient would need to go to [place] we will stiven (more content not included)... Normal [facility] POCT GLUCOSE METER UNSOLICIT ED RESULTSon 10-17-2023 Glucose [Mass/Vol] 217 mg/dL High 70-105 [facility] Comment on above: Order Comment: Waive d Testing in the ED is performed under the ED CLIA certificate #[id number]. Result Comment: ebeg in Performed By: #### L [id number] ####[facility] ([facility])[address] [place] [address] TROPONIN Ion 10-17-2023 Troponin I.cardiac [Mass/Vol] 3.96 ng/mL Critically high 0.00-0.04 [facility] Comment on above: Result Comment: M-TR OPONIN INITIAL CRITICAL HIGH; RESPUN AND RETESTED Performed By: #### L [id number] #### [facility] ([facility]) [address] [place] [address] Office Visiton 05-24-2023 Follow-up visit [id number] Rachel Orozco 1945 F Date Provider Department Center 05/24/2023 [id number] M[facility] No family history on file Level of Service:55922 [place] OFFICE/OUTPATIENT ESTABLISHED LOW MDM 20-29 MIN Reason for Visit and Comments: Follow-up [254648] - 1 YR FOLLOW UP Normal [facility]on 10-07 SARS-CoV-2 (COVID-19) RNA CIARAN+probe Ql (Unsp spec) Not detected Normal NOT DETECTED [facility] Comment on above: Result Comment: When diagnostic testing is negative, the possibility of a false negative should be considered in the context of a patient's recent exposures and the presence of clinical signs and symptoms consistent with SARS-CoV-2. This test is not yet approved or cleared by the [place] FDA. When there are no FDA-approved or cleared tests available, and other criteria are met, FDA can make tests available under an emergency access mechanism called an Emergency Use Authorization (EUA). The EUA for this test is supported by the [employer] Worker of Health and Human Service's declaration that circumstances exist to justify the emergency use of in vitro diagnostics for the detection and/or diagnosis of the virus that causes COVID-19. This EUA will remain in effect for the duration of the COVID-19 declaration justifying emergency of IVDs, unless it is terminated or revoked by the FDA (after which the test may no longer be used). Performed By: #### C VDTBH #### [facility] [address] [place] [address] Dr. Mildred Álvarez INFLUENZA A AND B AGon 10-26 INFLUANE SEE BELOW Normal [facility] Comment on above: Result Comment: Nega tive for Flu A protein angiten. Infection due to Flu A cannot be ruled out. Flu A angiten in the sample may be below the detection limit of the test. Performed By: #### I NFLUAB ####[facility] [address] [address]Dr. Mildred Álvarez INFLUBNEG SEE BELOW Normal [facility] Comment on above: Result Comment: Nega tive for Flu B protein antigen. Infection due to Flu B cannot be ruled out. Flu B antigen in the sample may be below the detection limit of the test. Performed By: #### I NFLUAB ####[facility] [address] [place], [place] [address]Dr. Mildred Álvarez INFLUENZA A AG Negative Normal NEGATIVE SEE COMMENT [facility] Comment on above: Performed By: #### I NFLUAB ####[facility] [address] [place], [place] [address]Dr. Mildred Álvarez INFLUENZA B AG Negative Normal NEGATIVE SEE COMMENT [facility] Comment on above: Performed By: #### I NFLUAB ####[facility] [address] [place], [place] [address]DrBrendan Álvarez INTERNAL CONTROLS Within Normal Limits Normal Wi thin Normal Limits [facility] Comment on above: Performed By: #### I NFLUAB ####[facility] [address] [place], [place] [address]DrBrendan Álvarez OCC BLD IMMUNO SCREENon OCCULT BLOOD Negative Normal NEGATIVE [facility] Comment on above: Performed By: #### O BSCRN #### [facility] [address] [place] [address] Dr. Mildred Álvarez CBC AUTO DIFFon 09-09-2022 BASO # 0.0 103/ul Normal 0.0-0.1 [facility] Comment on above: Performed By: #### C BC #### [facility] [address] [address] [address] Mildred Álvarez Basophils/100 WBC (Bld) 0.9 % Normal 0.2-2.0 [facility] Comment on above: Performed By: #### C BC #### [facility] [address] [address] [address] Mildred Álvarez EO # 0.2 103/ul Normal 0.0-0.7 [facility] Comment on above: Performed By: #### C BC #### [facility] [address] [place] [address] Dr. Mildred Álvarez Eosinophils/100 WBC (Bld) 4.8 % Normal 0.9-7.0 [facility] Comment on above: Performed By: #### C BC #### [facility] [address] [place] [address] Dr. Mildred Álvarez Erythrocyte distribution width (RBC) [Ratio] 12.5 % Normal 11.0-15.0 [facility] Comment on above: Performed By: #### C BC #### [facility] [address] [place] [address] Dr. Mildred Álvarez Hematocrit (Bld) [Volume fraction] 36.7 % Normal 36.0-48.0 [facility] Comment on above: Performed By: #### C BC #### [facility] [address] [place] [address] Dr. Mildred Álvarez Hemoglobin (Bld) [Mass/Vol] 11.9 g/dL Critically low 12.0-16.0 [facility] Comment on above: Performed By: #### C BC #### [facility] [address] [place] [address] Dr. Mildred Álvarez IG # 0.02 10e3/ul Normal 0.00-0.03 [facility] Comment on above: Performed By: #### C BC #### [facility] [address] [place] [address] Dr. Mildred Álvarez IG % 0.5 % Normal 0.0-0.5 [facility] Comment on above: Performed By: #### C BC #### [facility] [address] [place] [address] Dr. Mildred Álvarez LYMPH # 1.6 103/ul Normal 1.2-3.8 [facility] Comment on above: Performed By: #### C BC #### [facility] [address] [place] [address] Dr. Mildred Álvarez Lymphocytes/100 WBC (Bld) 37.4 % Normal 20.5-60.0 [facility] Comment on above: Performed By: #### C BC #### [facility] [address] [place] [address] Dr. Mildred Álvarez MANUAL DIFF REQ NO Normal [facility] Comment on above: Performed By: #### C BC #### [facility] [address] [place] [address] Dr. Mildred Álvarez MCH (RBC) [Entitic mass] 32.2 pg Normal 26.7-34.0 [facility] Comment on above: Performed By: #### C BC #### [facility] [address] [place] [address] Dr. Mildred Álvarez MCHC (RBC) [Mass/Vol] 32.4 g/dL Normal 29.9-35.2 [facility] Comment on above: Performed By: #### C BC #### [facility] [address] [place] [address] Dr. Mildred Álvarez MCV (RBC) [Entitic vol] 99.5 fL Critically high 81.0-99.0 [facility] Comment on above: Performed By: #### C BC #### [facility] [address] [place] [address] Dr. Mildred Álvarez MONO # 0.6 103/ul Normal 0.3-0.8 [facility] Comment on above: Performed By: #### C BC #### [facility] [address] [place] [address] Dr. Mildred Álvarez Monocytes/100 WBC (Bld) 13.5 % Critically high 1.7-12.0 [facility] Comment on above: Performed By: #### C BC #### [facility] [address] [address] [address] Mildred Álvarez NEUT # 1.9 103/ul Normal 1.4-6.5 [facility] Comment on above: Performed By: #### C BC #### [facility] [address] [address] [address] Mildred Álvarez Neutrophils/100 WBC (Bld) 42.9 % Critically low 43.0-75.0 [facility] Comment on above: Performed By: #### C BC #### [facility] [address] [address] [address] Mildred Álvarez Platelet mean volume (Bld) [Entitic vol] 11.1 fL Normal 9.5-13.5 [facility] Comment on above: Performed By: #### C BC #### [facility] [address] [place] [address] Dr. Mildred Álvarez PLT 212 103/ul Normal 150-450 [facility] Comment on above: Performed By: #### C BC #### [facility] [address] [place] [address] Dr. Mildred Álvarez RBC 3.69 106/ul Critically low 4.20-5.40 [facility] Comment on above: Performed By: #### C BC #### [facility] [address] [place] [address] Dr. Mildred Álvarez WBC 4.4 103/ul Normal 4.0-11.0 [facility] Comment on above: Performed By: #### C BC #### [facility] [address] [place] [address] Dr. Mildred Álvarez FREE T3on 09-09-2022 FREE T3 1.92 pg/mlL Critically low 2.18-3.98 [facility] Comment on above: Performed By: #### C MP, T4, FT3, LIPID, TSH #### [facility] [address] [place] [address] Dr. Mildred Álvarez GLYCOHEMOGLOBIN A1Con 2021 ADA RECOMMENDATION SEE BELOW Normal [facility] Comment on above: Result Comment: ADA RECOMMENDED LIMIT 4.0 - 6.0 ADA THERAPEUTIC TARGET < 7.0 ACTION SUGGESTED > 7.0 Performed By: #### A 1C #### [facility] [address] [address] [address] Mildred Álvarez Glucose [Mass/Vol] 140 mg/dL Normal [facility] Comment on above: Performed By: #### A 1C #### [facility] [address] [address] [address] Mildred Álvarez HbA1c (Bld) [Mass fraction] 6.5 % Critically high 4.5-6.2 [facility] Comment on above: Performed By: #### A 1C #### [facility] [address] [place] [address] Dr. Mildred Álvarez LIPID PROFILEon 09-09-2022 CHOL-HDL RATIO NORM SEE BELOW Normal [facility] Comment on above: Result Comment: 3.3 - 4.4 LOW RISK 4.4 - 7.1 AVERAGE RISK 7.1 - 11.0 MODERATE RISK >11.0 HIGH RISK Performed By: #### C MP, T4, FT3, LIPID, TSH #### [facility] [address] [place] [address] Dr. Mildred Álvarez Cholesterol [Mass/Vol] 153 mg/dL Normal <=200 [facility] Comment on above: Performed By: #### C MP, T4, FT3, LIPID, TSH #### [facility] [address] [place] [address] Dr. Mildred Ávlarez Cholesterol in HDL [Mass/Vol] 44 mg/dL Normal 40-60 [facility] Comment on above: Performed By: #### C MP, T4, FT3, LIPID, TSH #### [facility] [address] [address] [address] Mildred Álvarez Cholesterol in LDL [Mass/Vol] 82.6 mg/dL Normal [facility] Comment on above: Performed By: #### C MP, T4, FT3, LIPID, TSH #### [facility] [address] [place] [address] Dr. Mildred Álvarez Cholesterol.total/Ch olesterol in HDL [Mass ratio] 3.5 {ratio} Normal [facility] Comment on above: Performed By: #### C MP, T4, FT3, LIPID, TSH #### [facility] [address] [address] [address] Mildred Álvarez HDL NORMAL > or = 60 mg/dl - LO W CARDIOVASCULAR RISK <40 mg/dl - HIGH CARDIOVASCULAR RISK Normal [facility] Comment on above: Performed By: #### C MP, T4, FT3, LIPID, TSH #### [facility] [address] [address] [address] Mildred Álvarez LDL CALC NORMAL SEE BELOW Normal [facility] Comment on above: Result Comment: <100 mg/dl OPTIMAL 100 - 129 mg/dl NEAR OR ABOVE OPTIMAL 130 - 159 mg/dl BORDERLINE HIGH 160 - 189 mg/dl HIGH >190 mg/dl VERY HIGH Performed By: #### C MP, T4, FT3, LIPID, TSH #### [facility] [address] [place] [address] Dr. Mildred Álvarez Triglyceride [Mass/Vol] 132 mg/dL Normal <=150 [facility] Comment on above: Performed By: #### C MP, T4, FT3, LIPID, TSH #### [facility] [address] [address] [address] Mildred Álvarez VLDL CALC 26.4 mg/dL Normal [facility] Comment on above: Performed By: #### C MP, T4, FT3, LIPID, TSH #### [facility] [address] [place] [address] Dr. Mildred Álvarez PROF 14(COMP METB)on 022 Albumin [Mass/Vol] 3.7 g/dL Normal 3.4-5.0 [facility] Comment on above: Performed By: #### C MP, T4, FT3, LIPID, TSH #### [facility] [address] [place] [address] Dr. Mildred Álvarez Albumin/Globulin [Mass ratio] 1.2 {ratio} Normal [facility] Comment on above: Performed By: #### C MP, T4, FT3, LIPID, TSH #### [facility] [address] [place] [address] Dr. Mildred Álvarez ALP [Catalytic activity/Vol] 52 U/L Normal 46-116 [facility] Comment on above: Performed By: #### C MP, T4, FT3, LIPID, TSH #### [facility] [address] [place] [address] Dr. Mildred Álvarez ALT [Catalytic activity/Vol] 35 U/L Normal 14-59 [facility] Comment on above: Performed By: #### C MP, T4, FT3, LIPID, TSH #### [facility] [address] [place] [address] Dr. Mildred Álvarez Anion gap [Moles/Vol] 9.5 mmol/L Normal [facility] Comment on above: Performed By: #### C MP, T4, FT3, LIPID, TSH #### [facility] [address] [place] [address] Dr. Mildred Álvarez AST [Catalytic activity/Vol] 19 U/L Normal 15-37 [facility] Comment on above: Performed By: #### C MP, T4, FT3, LIPID, TSH #### [facility] [address] [place] [address] Dr. Mildred Álvarez Bilirubin [Mass/Vol] 0.3 mg/dL Normal 0.2-1.0 [facility] Comment on above: Performed By: #### C MP, T4, FT3, LIPID, TSH #### [facility] [address] [place] [address] Dr. Mildred Álvarez Calcium [Mass/Vol] 9.4 mg/dL Normal 8.5-10.1 [facility] Comment on above: Performed By: #### C MP, T4, FT3, LIPID, TSH #### [facility] [address] [place] [address] Dr. Mildred Álvarez Chloride [Moles/Vol] 106 mmol/L Normal 98-107 [facility] Comment on above: Performed By: #### C MP, T4, FT3, LIPID, TSH #### [facility] [address] [place] [address] Dr. Mildred Álvarez CO2 [Moles/Vol] 28.9 mmol/L Normal 21.0-32.0 [facility] Comment on above: Performed By: #### C MP, T4, FT3, LIPID, TSH #### [facility] [address] [place] [address] Dr. Mildred Álvarez Creatinine [Mass/Vol] 1.04 mg/dL Critically high 0.55-1.02 [facility] Comment on above: Performed By: #### C MP, T4, FT3, LIPID, TSH #### [facility] [address] [place] [address] Dr. Mildred Álvarez EGFR-AF SAMOAN >60 Normal >=60 [facility] Comment on above: Performed By: #### C MP, T4, FT3, LIPID, TSH #### [facility] [address] [place] [address] Dr. Mildred Álvarez EGFR-NON AF SAMOAN >60 Normal >=60 [facility] Comment on above: Performed By: #### C MP, T4, FT3, LIPID, TSH #### [facility] [address] [place] [address] Dr. Mildred Álvarez Globulin (S) [Mass/Vol] 3.2 g/dL Normal [facility] Comment on above: Performed By: #### C MP, T4, FT3, LIPID, TSH #### [facility] [address] [place] [address] Dr. Mildred Álvarez Glucose [Mass/Vol] 131 mg/dL Critically high 74-106 [facility] Comment on above: Performed By: #### C MP, T4, FT3, LIPID, TSH #### [facility] [address] [place] [address] Dr. Mildred Álvarez Potassium [Moles/Vol] 4.4 mmol/L Normal 3.5-5.1 [facility] Comment on above: Performed By: #### C MP, T4, FT3, LIPID, TSH #### [facility] [address] [place] [address] Dr. Mildred Álvarez Protein [Mass/Vol] 6.9 g/dL Normal 6.4-8.2 [facility] Comment on above: Performed By: #### C MP, T4, FT3, LIPID, TSH #### [facility] [address] [address] [address] Mildred Álvarez Sodium [Moles/Vol] 140 mmol/L Normal 136-145 [facility] Comment on above: Performed By: #### C MP, T4, FT3, LIPID, TSH #### [facility] [address] [address] [address] Mildred Álvarez Urea nitrogen [Mass/Vol] 28.0 mg/dL Critically high 7.0-18.0 [facility] Comment on above: Performed By: #### C MP, T4, FT3, LIPID, TSH #### [facility] [address] [place] [address] Dr. Mildred Álvarez Urea nitrogen/Creatinine [Mass ratio] 26.9 mg/mg Normal [facility] Comment on above: Performed By: #### C MP, T4, FT3, LIPID, TSH #### [facility] [address] [address] [address] Mildred Álvarez T4on 09-09-2022 T4 [Mass/Vol] 5.10 ug/dL Normal 4.80-13.90 [facility] Comment on above: Performed By: #### C MP, T4, FT3, LIPID, TSH #### [facility] [address] [address] [address] Mildred Álvarez TSHon 09-09-2022 TSH 0.641 uIU/mL Normal 0.358-3.740 [facility] Comment on above: Performed By: #### C MP, T4, FT3, LIPID, TSH #### [facility] [address] [place] [address] Dr. Mildred Álvarez VITAMIN D 25 OHon 09-09-2022 VIT D 25-OH 45.3 ng/mL Normal [facility] Comment on above: Performed By: #### V ITAD ####[facility] [id number] [address]Dr. Mildred Álvarez VIT D RANGES SEE BELOW Normal [facility] Comment on above: Result Comment: <20 ng/mL Vit D deficient 20 - <30 ng/mL Vit D insufficient 30 - 100 ng/mL Vit D sufficient >100 ng/mL Potential Toxicity Performed By: #### V ITAD ####[facility] [id number] [place], [place] [address]QmBrendan Álvarez MG MAMM SCREEN 3D MIGUEL CADon 06-20-2022 MG MAMM SCREEN 3D MIGUEL CAD Patient: RACHEL OROZCO Exam Date: 06/20/2022 : 1945 Gender:F Ordering : DR BEN KRAFT . Admission #: [id number] Family : Order #: [id number] CLICK HERE TO VIEW EXAM RADIOLOGY REPORT PROCEDURE: MAMMOGRAM SCREENING 3D BILATERAL CAD COMPARISON: MG MAMM SCREEN 3D MIGUEL CAD, 06/17/2021. MG MAMM SCREEN MIGUEL W CAD, 06/16/2020. INDICATIONS: Screening mammography Calculator Name NCI Breast Cancer Risk Assessment Tool 5 Year Breast Cancer Risk 8.90% Lifetime Breast Cancer Risk 17.30% Personal Breast Cancer No Personal Ovarian Cancer No Treatments HYSTERECTOMY Family Cancers Mother with breast cancer at age 38; Sister with breast cancer at age 50; Sister with breast cancer at age 69; Daughter with ovarian cancer at age 40. LOCATION: [facility] BREAST COMPOSITION: Scattered areas fibroglandular density. FINDINGS: DIAGNOSTIC CATEGORY 1--NEGATIVE. RIGHT BREAST: No significant suspicious finding. No significant change has occurred. LEFT BREAST: No significant suspicious finding. No significant change has occurred. RECOMMENDATIONS: ROUTINE MAMMOGRAM AND CLINICAL EVALUATION IN 12 MONTHS. PLEASE NOTE: A NORMAL MAMMOGRAM DOES NOT EXCLUDE THE POSSIBILITY OF BREAST CANCER. A CLINICALLY SUSPICIOUS PALPABLE LUMP SHOULD BE BIOPSIED. Dictated by: Marquise Sunshine M.D. on 06/20/2022 at 12:15 Approved by: Marquise Sunshine M.D. on 06/20/2022 at 12:49 Normal [facility] Encounters Encounter Date Encounter Type Care Provider Facility Start: 10-26-2023 End: 10-26-2023 ambulatory SAADIA [facility] Start: 10-19-2023 Evaluation and management of inpatient BLANCHE JONATHAN [facility] Start: 10-18-2023 [facility] Start: 10-18-2023 Evaluation and management of inpatient YEIMY ANDRADE [facility] Start: 10-17-2023 End: 10-20-2023 Evaluation and management of inpatient BETTY JONES [facility] Start: 05-24-2023 ambulatory KEATON MIMS [facility] Start: 10-26-2022 End: 10-26-[address] BEN KRAFT Facility:[facility] Start: 09-12-2022 End: 09-12-[address] BEN KRAFT Facility:[facility] Start: 09-09-2022 End: 09-10-[address] BEN KRAFT Facility:[facility] Start: 06-20-2022 End: 06-21-[address] BEN KRFAT Facility:[facility] Start: 06-12-2019 End: 06-12-2019 Emergency department patient visit DENZEL OHARA Facility:[facility] Payers Date Payer Category Payer Medicare [id number] 1958 Unknown [id number] 1945 Unknown [id number] [id number] 1945 Unknown [id number] 2.16.84 [id number] 1945 Unknown [id number] 2.16.84 [id number] 1945 Unknown [id number] 2.16.84 [id number] 1945 Unknown [id number] 2.16.84 [id number] Medicare [id number] Clinical Notes 05-24-2023 to 10-26-2023 Note Date & Type Note Facility 10-26-2023 Note Patient here for [facility] for NSTEMI. Underwent heart cath on 10/18/[address] Henson. She had chest pain at rest on Monday which required 2 nitroglycerine tablets for relief. Sometimes wakes up during the night with labored breathing. She denies palpitations, lightheadedness/syncope, and bleeding on Eliquis. Review of Systems Constitutional: Positive for decreased appetite and malaise/fatigue. Cardiovascular: Positive for chest pain and dyspnea on exertion. Respiratory: Positive for sleep disturbances due to breathing. All other systems reviewed and are negative. [facility] 10-26-2023 Note Cardiovascular Medic in[facility] SUBJECTIVE No chief complaint on file. Rachel Orozco is a 78 y.o. female here for follow-up after her recent admission to [facility]. HPI Patient here for follow up [facility] for NSTEMI. Underwent heart cath on 10/18/[address] Henson. She had chest pain at rest on Monday which required 2 nitroglycerine tablets for relief. Sometimes wakes up during the night with labored breathing. She denies palpitations, lightheadedness/syncope, and bleeding on Eliquis. 10/26/2023 She states the chest pain felt like indigestion. Lasted for possibly 15 minutes and resolved with nitroglycerin. Unsure if it was related to a meal. Her breathing has improved. She has a poor appetite. She has BELLE but does not wear a CPAP. Discharge Summary Final Discharge Diagnosis: Chest pain Admission Diagnosis: Chest pain [R07.9] Hospital course: michoacano Orozco is an 78 y.o. female admitted from [facility] where she presented with several days history of progressive shortness of breath retrosternal chest discomfort described by her as dull ache at times burning nonradiating associated for dyspnea Patient was recently discharged from [facility] after being admitted for RSV pneumonia since that time she has been having shortness of breath which gets worse with activity she denies any fever chills sinus trouble sore throat she denies any dizziness lightheadedness she feels tired she has history of atrial fibrillation and has been on Eliquis and metoprolol she denies any cardioversion in the past at [facility] she had 2 sets of troponin done 0 these are high-sensitivity troponin 0-hour was 143.6 and subsequent troponin peaked at 2392.5 white count of 14.5 hemoglobin 11.8 hematocrit 37.2 and absolute neutrophil count of 10.5 her BNP was 4199 her EKG showed A-fib with no acute change as per the ER note Patient was started on IV heparin. NSTEMI Patient underwent cardiac cath and echo. Heart cath was negative for obstruction, echo showed takotsubo cardiomyopathy. Patient was treated with IV diuretics and had home O2 eval completed. She was discharged on 2Lnc with ambulation. She will follow up with cardiology and have repeat ECHO in 2-3 months. Recent RSV infection Discharged on steroid course Essential HTN, controlled Hyperlipidemia DM2, controlled Hypothyroidism GERD, unspecified with out without esophagitis Patient Active Problem List Diagnosis Dyspnea on exertion Diastolic heart failure (CMS/HCC) Bradycardia Atrial fibrillation (CMS/HCC) Chest pain NSTEMI (non-ST elevated myocardial infarction) (CMS/HCC) No past medical history on file. No family history on file. Social History Tobacco Use Smoking status: Every Day Types: Cigarettes Smokeless tobacco: Never Allergies Allergen Reactions Sulfa (Sulfonamide Antibiotics) ROS Constitutional: Positive for decreased appetite and malaise/fatigue. Cardiovascular: Positive for chest pain and dyspnea on exertion. Respiratory: Positive for sleep disturbances due to breathing. All other systems reviewed and are negative OBJECTIVE Visit Vitals BP 108/62 (BP Location: Left arm, Patient Position: Sitting) Pulse 72 Ht 1.6 m (5' 3 ) Wt 79.4 kg (175 lb) SpO2 99% BMI 31.00 kg/m??? Smoking Status Every Day BSA 1.88 m??? Medications: Current Outpatient Medications: aspirin 81 mg EC tablet, Take 1 tablet (81 mg) by mouth in the morning. Do not start before October 21, 2023., Disp: 30 tablet, Rfl: 0 atorvastatin (Lipitor) 80 mg tablet, Take 1 tablet (80 mg) by mouth at bedtime for 30 doses., Disp: 30 tablet, Rfl: 0 biotin 10,000 mcg capsule, Take 1 capsule by mouth in the morning., Disp: , Rfl: diclofenac (Voltaren) 75 mg EC tablet, Take 1 tablet by mouth in the morning., Disp: , Rfl: fenofibrate micronized (Lofibra) 134 mg capsule, Take 134 mg by mouth in the morning., Disp: , Rfl: ferrous sulfate 325 (65 Fe) MG tablet, Take 65 mg by mouth 2 times daily., Disp: , Rfl: furosemide (Lasix) 40 mg tablet, Take 1 tablet by mouth in the morning., Disp: , Rfl: Jardiance 10 mg, Take 10 mg by mouth in the morning., Disp: , Rfl: levothyroxine (Synthroid, Levoxyl) 88 mcg tablet, Take 1 tablet by mouth in the morning., Disp: , Rfl: liothyronine (Cytomel) 5 mcg tablet, Take 25 mcg by mouth in the morning., Disp: , Rfl: lisinopril 5 mg tablet, Take 1 tablet (5 mg) by mouth in the morning for 30 doses. Do not start before October 21, 2023., Disp: 30 tablet, Rfl: 0 metoprolol succinate XL (Toprol-XL) 25 mg 24 hr tablet, Take 12.5 mg by mouth in the morning. Do not crush or chew., Disp: , Rfl: nitroglycerin (Nitrostat) 0.4 mg SL tablet, Place 1 tablet (0.4 mg) under the tongue every 5 (five) minutes if needed for chest pain., Disp: 90 tablet, Rfl: 0 oxybutynin XL (Ditropan-XL) 10 mg 24 hr tablet, Take 10 mg by mouth in the (more content not included)... [facility] 10-20-2023 Note Hospital Medicine Discharge Summary Final Discharge Diagnosis: Chest pain Admission Diagnosis: Chest pain [R07.9] Hospital course: michoacano Orozco is an 78 y.o. female admitted from [facility] where she presented with several days history of progressive shortness of breath retrosternal chest discomfort described by her as dull ache at times burning nonradiating associated for dyspnea Patient was recently discharged from [facility] after being admitted for RSV pneumonia since that time she has been having shortness of breath which gets worse with activity she denies any fever chills sinus trouble sore throat she denies any dizziness lightheadedness she feels tired she has history of atrial fibrillation and has been on Eliquis and metoprolol she denies any cardioversion in the past at [facility] she had 2 sets of troponin done 0 these are high-sensitivity troponin 0-hour was 143.6 and subsequent troponin peaked at 2392.5 white count of 14.5 hemoglobin 11.8 hematocrit 37.2 and absolute neutrophil count of 10.5 her BNP was 4199 her EKG showed A-fib with no acute change as per the ER note Patient was started on IV heparin. NSTEMI Patient underwent cardiac cath and echo. Heart cath was negative for obstruction, echo showed takotsubo cardiomyopathy. Patient was treated with IV diuretics and had home O2 eval completed. She was discharged on 2Lnc with ambulation. She will follow up with cardiology and have repeat ECHO in 2-3 months. Recent RSV infection Discharged on steroid course Essential HTN, controlled Hyperlipidemia DM2, controlled Hypothyroidism GERD, unspecified with out without esophagitis Dear Dr. Swapnil MD, Rachel is advised to follow up with you within 1-2 weeks. Follow-up with: Cardiology Scheduled appointments: Future Appointments Date Time Provider Department Center 10/26/2023 11:40 AM Saadia Myles NP [facility] Your medication list START taking these medications Instructions Last Dose Given Next Dose Due aspirin 81 mg EC tablet Start taking on: October 21, 2023 Take 1 tablet (81 mg) by mouth in the morning. Do not start before October 21, 2023. lisinopril 5 mg tablet Start taking on: October 21, 2023 Take 1 tablet (5 mg) by mouth in the morning for 30 doses. Do not start before October 21, 2023. nitroglycerin 0.4 mg SL tablet Commonly known as: Nitrostat Place 1 tablet (0.4 mg) under the tongue every 5 (five) minutes if needed for chest pain. predniSONE 20 mg tablet Commonly known as: Deltasone Start taking on: October 21, 2023 Take 1 tablet (20 mg) by mouth in the morning for 3 doses. Do not start before October 21, 2023. CHANGE how you take these medications Instructions Last Dose Given Next Dose Due atorvastatin 80 mg tablet Commonly known as: Lipitor What changed: medication strength how much to take when to take this Take 1 tablet (80 mg) by mouth at bedtime for 30 doses. metoprolol succinate XL 100 mg 24 hr tablet Commonly known as: Toprol-XL Start taking on: October 21, 2023 What changed: medication strength how much to take additional instructions Take 1 tablet (100 mg) by mouth in the morning. Do not crush or chew. Do not start before October 21, 2023. CONTINUE taking these medications Instructions Last Dose Given Next Dose Due biotin 10,000 mcg capsule diclofenac 75 mg EC tablet Commonly known as: Voltaren Eliquis 5 mg tablet Generic drug: apixaban fenofibrate micronized 134 mg capsule Commonly known as: Lofibra ferrous sulfate 325 (65 Fe) MG tablet furosemide 40 mg tablet Commonly known as: Lasix glimepiride 2 mg tablet Commonly known as: Amaryl levothyroxine 88 mcg tablet Commonly known as: Synthroid, Levoxyl liothyronine 5 mcg tablet Commonly known as: Cytomel loratadine 10 mg tablet Commonly known as: Claritin oxybutynin XL 10 mg 24 hr tablet Commonly known as: Ditropan-XL potassium chloride CR 10 mEq ER tablet Commonly known as: Klor-Con M10 TAKE 2 TABLETS TWICE A DAY STOP taking these medications losartan 50 mg tablet Commonly known as: Cozaar Where to Get Your Medications These medications were sent to [facility] - [address] [place] [address] [place] [address], [facility] [address] aspirin 81 mg EC tablet atorvastatin 80 mg tablet lisinopril 5 mg tablet metoprolol succinate XL 100 mg 24 hr tablet nitroglycerin 0.4 mg SL tablet predniSONE 20 mg tablet Rachel is allergic to sulfa (sulfonamide antibiotics). Disposition: Home or Self Care Discharge Condition: Stable Code Status: Prior Diagnostic Results Hematology: Results from last 7 days Lab Units 10/20/23 0347 10/18/23 0333 WBC AUTO 10*3/uL 10.06 10.64* HEMOGLOBIN g/dL 11.8* 11.1* HEMATOCRIT % 36.0 34.4* MCV fL 97.0 96.6 PLATELETS AUTO 10*3/uL 239 (more content not included)... [facility] 10-20-2023 Note Physical Therapy Spoke with patient this afternoon who reports she will be discharging to home this afternoon within the next hour. Just received her medication and home oxygen. OT evaluated patient this morning and sign off stating patient had no acute OT needs. Patient notes she feels comfortable discharging to home with no major concerns. Observed independent ambulation in the room. PT to defer evaluation at this time and sign off. Chris Obando PT, DPT [facility] 10-20-2023 Note Patient requires 2 L nc with ambulation to maintain O2 greater than 92% due to her diastolic heart failure. -Danielle Myles CNP [facility] 10-20-2023 Note 10/20/23 1345 Home Oxygen Therapy Evaluation Pulse Oximetry on room air at Rest 94 Pulse Ox on room air while walking 88 Pulse Ox on O2 with nasal cannula while walking 95 Patient Qualification for home oxygen Qualifies $ Pulse Oximetry Multiple (home oxygen eval) [facility] 10-20-2023 Note ------ Attestation signed by Graeme Vivas MD at 10/20/2023 4:19 PM I personally saw and examined the patient on the same date of service as resident/fellow Dr. Glass. I discussed the findings and therapeutic plan with the resident/fellow Dr. Glass. I agree with the documentation, except for any edits/updates below. Teaching Physician's Revisions: None ------ Cardiology Progress Note Subjective Subjective: No acute events overnight. Patient was seen and examined today AM. She denies any chest pain, shortness of breath or palpitations. Objective Objective: Patient Vitals for the past 24 hrs: BP Temp Temp src Pulse Resp SpO2 Weight 10/20/23 0810 122/75 36.1 ???C (97 ???F) Temporal 68 20 100 % -- 10/20/23 0620 -- -- -- -- -- -- 83.8 kg (184 lb 11.9 oz) 10/20/23 0417 103/65 36.4 ???C (97.5 ???F) Temporal 58 21 98 % -- 10/20/23 0100 110/76 36.4 ???C (97.5 ???F) Temporal 53 17 97 % -- 10/20/23 0045 -- -- -- 52 14 97 % -- 10/20/23 0044 -- -- -- 61 18 (!) 80 % -- 10/19/23 1940 113/67 36.5 ???C (97.7 ???F) Temporal 68 18 93 % -- 10/19/23 1731 95/59 36.2 ???C (97.2 ???F) Temporal 62 18 95 % -- 10/19/23 1255 111/63 36.3 ???C (97.3 ???F) Temporal 70 17 95 % -- Physical Examination: GENERAL: AOx3, in no acute distress. HEAD: Atraumatic, normocephalic. EYES: SUDEEP, EOMI. NECK: No JVD present. CARDIAC: RRR. No murmur, rubs, or gallops. RESPIRATORY: CTAB, no increased effort of breathing. ABDOMEN: Soft, nontender, nondistended. EXTREMITIES: No lower extremity edema, peripheral pulses are 2+ bilaterally. NEURO: No focal deficits Relevant Lab Results Encounter Date: 10/17/23 ECG 12 lead Result Value Ventricular Rate 85 QRS DURATION 86 QT Interval 458 QTC CALCULATION(BAZETT) 545 R-Shiloh 107 T Wave Shiloh 238 Impression Atrial fibrillation with premature ventricular or aberrantly conducted complexes Right axis deviation Anteroseptal infarct (cited on or before 17-OCT-2023) T wave abnormality, consider inferolateral ischemia Prolonged QT Abnormal ECG When compared with ECG of 18-OCT-2023 07:59, QRS axis Shifted right Serial changes of Anteroseptal infarct Present Confirmed by Brenden VIVAS, GRAEME Syed ([id number]) on 10/19/2023 7:24:34 AM Lab Results Component Value Date TROPONINI 3.09 (HH) 10/19/2023 Complete Echo (TTE) w/wo Imaging Agent, Strain, 3D, Bubble Study Result Date: 10/18/2023 1 1 [facility] Heart Station [address] [address] [phone] (fax) Echocardiogram-[facility] Name: RACHEL OROZCO Study Date: 10/18/2023 08:28 AM B/P: 124 mmHg/69 mmHg HR: 72 bpm Date of : 1945 Location: [facility] Height: 63 in. Age: 78 year(s) Patient Room: 3141 Weight: 195 lb. Gender: Female Patient Status: InPt BSA: 1.91 m2 Indication: Chest Pain, Shortness of Breath, Atrial Fibrillation Examination: Echocardiogram (Complete), Lumason Contrast Image Quality: Fair Patient Consent: Procedure explained to patient Exam Details Contrast: I.V. dose of Lumason Conclusions Left Ventricle: The left ventricle is normal size. Global left ventricular systolic function is severely reduced. The EF is 25 % visually. EF range is estimated at 20 % -25 %. Left ventricular wall thickness is increased. Regional wall motion abnormalities (see diagram). Diastolic dysfunction. The changes are consistent with eccentric hypertrophy. Right Ventricle: The right ventricular apex appears to be hypokinetic. The right ventricle is normal in size. Right ventricular systolic function appears reduced. Doppler studies suggest normal right sided pressures. Left Atrium: The left atrium appears enlarged. Mitral Valve: Mild mitral regurgitation. Tricuspid Valve: Moderate tricuspid regurgitation. Pericardium: There is a minimal pericardial effusion. Overall Conclusions: Cardiac phenotype is suggestive of Takotsubo cardiomyopathy (Stress induced cardiomyopathy) Due to suboptimal imaging Lumason contrast was administered for opacification and better delineation of endocardial borders. Measurements Left Ventricle Label Value Normal Value LVOTd 2 cm (18cm - 20cm) LVOT VTI 12.6 cm (18cm - 22cm) LVOT PGmax 2 mmHg LVEF visual 25 % LVDd, 2D 5.15 cm (3.9cm - 5.3cm) LVDs, 2D 3.82 cm (2.1cm - 4cm) IVSd, 2D 0.98 cm (0.6cm - 1.1cm) LVPWd, 2D 0.97 cm (0.6cm - 0.9cm) LV Mass, 2D ASE 184.74 g LV Mass Index, 2D ASE 96.7 g/m?? (44g/m?? - 88.4g/m??) RWT, MM 0.38 (0 - 0.42) LVSVI, 2D 33.5 ml/m2 LVOT PGmean 1 mmHg LVSV_LVOT 40 ml Right Ventricle Label Value Normal Value RVDd, 2D 2.99 cm (1.9cm - 3.8cm) TAPSE 1.4 cm Left Atrium Label Value Normal Value LA Volume, BP 61 ml (22ml - 52ml) LAESV index, BP 31.9 ml/m?? Right Atrium Label Value Normal Value RA Area 17.9 cm?? Aortic V (more content not included)... [facility] 10-20-2023 Note Occupational Therapy Occupational Therapy Evaluation Patient Name: Rachel Orozco : 1945 Today's Date: 10/20/2023 Time In: 811 Time Out: 824 NSTEMI Recent RSV infection General Subjective: friendly and cooperative , reports indep in room without issues Patient Active Problem List Diagnosis Dyspnea on exertion Diastolic heart failure (CMS/HCC) Bradycardia Atrial fibrillation (CMS/HCC) Chest pain NSTEMI (non-ST elevated myocardial infarction) (CMS/HCC) No past medical history on file. No past surgical history on file. Precautions Pain Pain Assessment Pain Score: 0 - No pain Cognition Cognition Overall Cognitive Status: Within Functional Limits General Assessment General Assessment Hearing: (wfl) Hand Dominance: Right Home Living Home Living Type of Home: House Lives With: Alone Home Adaptive Equipment: (sc, gb, hhs) Home Layout: One level Home Access: Stairs to enter with rails (2) Bathroom Shower/Tub: Walk-in shower Prior Level of Function Prior Function Level of Hart: Independent with ADLs and functional transfers, Independent with homemaking with ambulation (ddrives) Prior IADLs IADL History Homemaking Responsibilities: Yes Dynamic Standing Balance Dynamic Standing Balance Dynamic Standing Balance-Level of Assistance: Independent ADL ADL LE Dressing Assistance: Independent Transfers Transfers Transfer: (indep :: supine to sit EOB, sit to stand 30 feet and sit into chair) Objective General Assessments Activity Tolerance Endurance: Stage II Vision - Basic Assessment Current Vision: No visual deficits Sensation Light Touch: No apparent deficits Coordination Movements are Fluid and Coordinated: Yes Extremity Assessments RUE Assessment RUE Assessment: (reports no issues with UB / MMT deferred) Outcome Assessments AM-PAC 6 Clicks Putting on and taking off regular lower body clothing?: None (Independent) Bathing(Including washing,rinsing,drying)?: None (Independent) Toileting, which includes using the toilet,bedpan,or urinal?: None (Independent) Putting on and taking off regular upper body clothing?: None (Independent) Taking care of personal grooming such as brushing teeth?: None (Independent) Eating meals?: None (Independent) Total Score OT [facility]: 24 Assessment/Plan Plan OT Plan: No skilled OT OT Discharge Recommendations: Home OT - Discharge Recommendations Placed: Yes OT Goals Multi-Disciplinary Problems (from Occupational Therapy) Active Problems Not on file [facility] 10-19-2023 Note 10/19/23 9877 Admission Assessment Questions Verify insurance with patient Yes Do you understand medical disease or what brought you into the hospital? Yes Who is your current PCP? Ben Kraft MD Can I schedule a follow up appointment for you at the time of discharge? No (already has appt for 10/23) Do you understand why you are taking your current medications? Yes Are you taking your medications as prescribed? Yes Did patient provide teach back? Yes Would you like use our pharmacy i[facility] to fill your new medications at the time of Discharge? Yes Does the patient have a special education case manager assigned to them through their insurance? No Living Arrangement (Current/Prior to Hospitalization) Private residence (lives alone in one story house - 2 steps w/railings to enter) Does the patient have history of HHC or SNF? No Assistive Device Grab bars (shower chair) Patient's goal for discharge Home with dog Was patient reminded that goal for discharge is 11am? Yes Does the patient have transportation at discharge? Yes Type of Residence/Post Acute Needs Private residence Is PT/OT appropriate? Yes Is PT/OT ordered? Yes Is SW consult appropriate? No Is SW consult ordered? No Do you understand the benefits of MyChart? No Were you able to send link and activate MyChart? No Patient lives alone - daughter voices concerns regarding medications. Wants to ensure patient is taking only what she needs as it seems there are always prescriptions being added. Daughter wishes for patient to be evaluated by PT/OT since she lives alone and is concerned [facility] 10-19-2023 Note Hospital Medicine Daily Progress Note - 10/19/2023 6:04 PM; Room: [facility] Admission: 10/17/2023 7:37 PM; Length of stay: 2 days THE HOSPITALIST TEAM PREFERS TO USE [employer] CHAT FOR COMMUNICATION 7AM-7PM. IF I DO NOT RESPOND WITHIN 15 MINUTES, PLEASE PAGE ME/CALL THROUGH THE MARKETING FORECASTER. FROM 7PM-7AM, PLEASE PAGE [phone](COVR) Code Status: Full Code Barriers to Discharge: Cardiology evaluation and plan Expected Discharge Date: 1 to 2 days Discharge Destination: home Overview Patient is seen for evaluation and management of chest pain. Subjective Patient assessed at bedside, denies any current chest pain or shortness of breath. However with minimal mobility becomes significantly short of breath. She did have 1 episode of chest pain overnight, resolved with nitro. Denies any abdominal pain, nausea or vomiting. Physical Exam Visit Vitals BP 111/63 (BP Location: Left arm, Patient Position: Sitting) Pulse 70 Temp 36.3 ???C (97.3 ???F) (Temporal) Resp 17 Intake/Output Summary (Last 24 hours) at 10/19/2023 1804 Last data filed at 10/19/2023 1400 Gross per 24 hour Intake 1164.49 ml Output 2125 ml Net -960.51 ml Physical Exam Vitals reviewed. Constitutional: General: She is awake. She is not in acute distress. Appearance: Normal appearance. She is not ill-appearing. Cardiovascular: Rate and Rhythm: Normal rate. Pulses: Radial pulses are 2+ on the right side and 2+ on the left side. Pulmonary: Effort: No tachypnea, accessory muscle usage or respiratory distress. Abdominal: General: Bowel sounds are normal. There is no distension. Palpations: Abdomen is soft. Skin: General: Skin is warm and dry. Neurological: Mental Status: She is alert and oriented to person, place, and time. Mental status is at baseline. Psychiatric: Behavior: Behavior is cooperative. Estimated body mass index is 32.34 kg/m??? as calculated from the following: Height as of this encounter: 1.6 m (5' 2.99 ). Weight as of this encounter: 82.8 kg (182 lb 8.7 oz). Active Inpatient Problems Principal Problem: Chest pain Active Problems: NSTEMI (non-ST elevated myocardial infarction) ([facility]) Assessment and Plan NSTEMI Recent RSV infection Essential HTN, controlled Hyperlipidemia DM2, controlled Hypothyroidism GERD, unspecified with out without esophagitis Continue vitals every 4 hours with continuous pulse ox Wean oxygen as tolerated Transition IV steroids to oral tomorrow Cardiology consulted, had left and right heart cath completed today, appreciate recommendations, continue IV Lasix with strict intake and output, daily weights Echo showed stress-induced cardiomyopathy, appreciate cardiology recommendations pending Home med rec completed Continue sliding scale insulin ACHS Echo pending Nutrition Screen VTE Prophylaxis: Eliquis Scheduled Meds apixaban, 5 mg, oral, BID aspirin, 81 mg, oral, Daily atorvastatin, 80 mg, oral, Nightly fenofibrate, 160 mg, oral, Daily furosemide, 40 mg, intravenous, q12h insulin aspart, 0-20 Units, subcutaneous, TID with meals And insulin aspart, 0-20 Units, subcutaneous, Nightly levothyroxine, 88 mcg, oral, Daily liothyronine, 15 mcg, oral, Daily metoprolol succinate XL, 100 mg, oral, Daily Oxygen Therapy, , inhalation, Continuous pantoprazole, 40 mg, oral, Daily potassium chloride CR, 20 mEq, oral, 2 times daily predniSONE, 20 mg, oral, Daily Pertinent Investigations Hematology: Results from last 7 days Lab Units 10/18/23 0333 10/17/232012 WBC AUTO 10*3/uL 10.64* 12.78* HEMOGLOBIN g/dL 11.1* 11.9* HEMATOCRIT % 34.4* 36.6 MCV fL 96.6 96.8 PLATELETS AUTO 10*3/uL 205 225 Chemistry: Results from last 7 days Lab Units 10/19/23 0002 10/17/232012 SODIUM mmol/L 138 138 POTASSIUM mmol/L 3.3* 3.9 CHLORIDE mmol/L 99 102 CO2 mmol/L 30 24 BUN mg/dL 40* 31* CREATININE mg/dL 1.12 1.13 GLUCOSE mg/dL 243* 243* MAGNESIUM mg/dL 1.6* -- CALCIUM mg/dL 8.7 9.0 PHOSPHORUS mg/dL 3.3 -- Results from last 7 days Lab Units 10/17/232012 AST U/L 35 ALT U/L 45 ALK PHOS U/L 50 BILIRUBIN TOTAL mg/dL 0.5 Results from last 7 days Lab Units 10/19/23 1627 10/19/23 1108 10/19/23 0710 10/18/23 2044 10/18/23 1615 10/18/23 1135 POCT GLUCOSE mg/dL 137* 203* 162* 307* 196* 201* Historical Values: (Includes values prior to this admission) Lab Results Component Value Date TSH 0.02 (L) 10/18/2023 FREET4 0.86 10/18/2023 No results found for: [id number] , IRON , TIBC , C3 , C4 , JUSTINO , CANCA , ASO , PSA , CEA , CA125 , CA199 , AFP , CA153 Imaging ECG 12 lead Atrial fibrillation with premature ventricular or aberrantly conducted complexes Right axis deviation Anteroseptal infarct (cited on or before 17-OCT-2023) T wave abnormality, consider inferolateral ischemia Prolonged QT Abnormal ECG When compared with ECG of 18-OCT-2023 07:59, QRS axis (more content not included)... [facility] 10-19-2023 Note [facility] CARDIOLOGY INPAT IENT PROGRESS NOTE Reason for follow up: Stress induced CM, Acute HFrEF, Afib Subjective Awake, family at bedside, still has moist cough and exertional dyspnea, with Afib and controlled rates. No CP, dizziness. Rare palpitations. Discussed findings to date, plan for treatment as IP and OP. She has scales and BP machine at home. Counseled regarding home HF monitoring, low sodium diet, limit fluids 1.5-2L. She enjoys salting her food, but willing to curb this. Tele: afib, controlled rates ALLERGIES Allergies Allergen Reactions Sulfa (Sulfonamide Antibiotics) CURRENT MEDS aspirin, 81 mg, oral, Daily atorvastatin, 80 mg, oral, Nightly fenofibrate, 160 mg, oral, Daily furosemide, 40 mg, intravenous, q12h insulin aspart, 0-20 Units, subcutaneous, TID with meals And insulin aspart, 0-20 Units, subcutaneous, Nightly levothyroxine, 88 mcg, oral, Daily liothyronine, 15 mcg, oral, Daily metoprolol succinate XL, 100 mg, oral, Daily Oxygen Therapy, , inhalation, Continuous pantoprazole, 40 mg, oral, Daily potassium chloride CR, 20 mEq, oral, 2 times daily predniSONE, 20 mg, oral, Daily PRN medications: glucose OR dextrose 50 % in water (D50W), ipratropium-albuteroL, nitroglycerin, Insert peripheral IV AND Saline lock IV AND sodium chloride Objective Patient Vitals for the past 24 hrs: BP Temp Temp src Pulse Resp SpO2 Weight 10/19/23 0726 133/84 36.5 ???C (97.7 ???F) Temporal 82 20 95 % -- 10/19/23 0725 -- -- -- -- -- 96 % -- 10/19/23 0540 -- -- -- -- -- -- 82.8 kg (182 lb 8.7 oz) 10/19/23 0512 104/74 -- -- 60 14 95 % -- 10/19/23 0348 92/50 36.5 ???C (97.7 ???F) Temporal 61 19 97 % -- 10/19/23 0005 121/74 36.6 ???C (97.9 ???F) Temporal 71 17 95 % -- 10/18/23 2321 122/83 -- -- 86 20 95 % 85.5 kg (188 lb 7.9 oz) 10/18/23 2317 133/74 -- -- 85 16 96 % -- 10/18/23 1950 110/57 36.5 ???C (97.7 ???F) Temporal 84 21 93 % -- 10/18/23 1500 117/69 -- -- 80 24 92 % -- 10/18/23 1415 119/72 -- -- 83 23 93 % -- 10/18/23 1315 114/61 -- -- 75 18 92 % -- 10/18/23 1215 (!) 93/45 -- -- 83 22 92 % -- 10/18/23 1200 124/74 -- -- 84 25 92 % -- 10/18/23 1145 99/68 -- -- 77 23 93 % -- 10/18/23 1115 115/83 -- -- 80 22 94 % -- 10/18/23 1100 (!) 128/92 -- -- 82 20 92 % -- 10/18/23 1046 (!) 125/94 -- -- 75 15 98 % -- 10/18/23 1033 112/72 -- -- 85 -- 94 % -- 10/18/23 1004 124/73 -- -- 93 16 92 % -- BP 133/84 (BP Location: Left arm, Patient Position: Sitting) Pulse 82 Temp 36.5 ???C (97.7 ???F) (Temporal) Resp 20 Ht 1.6 m (5' 2.99 ) Wt 82.8 kg (182 lb 8.7 oz) SpO2 95% BMI 32.34 kg/m??? Wt Readings from Last 3 Encounters: 10/19/23 82.8 kg (182 lb 8.7 oz) 05/24/23 82.7 kg (182 lb 6.4 oz) 05/19/22 84.8 kg (187 lb) General: Awake, alert, appropriate mood / affect, NAD Eyes: anicteric sclera. Non-injected conjunctiva. No xanthelasmas Neck: No elevated JVP. No carotid bruit Pulm: Breath sounds with coarse rhonchi in left files, generally diminished on right cardenas with no wheeze Cards: HR Irreg irreg , NL S1, S2. No S3 or S4 gallop. Murmur: none Abd: Soft, Nontender, physiologic bowel sounds are present Extr: Lower extremity edema: none. DP pulses present bilaterally Skin: warm, dry, well perfused Neuro: A&Ox3, No gross deficits Lab Results Component Value Date NA 138 10/19/2023 K 3.3 (L) 10/19/2023 CL 99 10/19/2023 ANIONGAP 12 10/19/2023 BUN 40 (H) 10/19/2023 CREATININE 1.12 10/19/2023 CALCIUM 8.7 10/19/2023 MG 1.6 (L) 10/19/2023 PHOS 3.3 10/19/2023 Lab Results Component Value Date BILITOT 0.5 10/17/2023 ALKPHOS 50 10/17/2023 AST 35 10/17/2023 ALT 45 10/17/2023 PROT 6.4 10/17/2023 ALBUMIN 4.2 10/17/2023 No results found for: CHOLESTEROL , CHOLESTEROL TOTAL , TRIGLYCERIDES , HDL , LDL CHOLESTEROL , LDL DIRECT , LDL CALC Lab Results Component Value Date BNP 1,127 (H) 10/18/2023 Lab Results Component Value Date TSH 0.02 (L) 10/18/2023 FREE T4 0.86 10/18/2023 No results found for: DIGOXIN LVL No results found for: HGBA1C Lab Results Component Value Date WBC 10.64 (H) 10/18/2023 RBC 3.56 (L) 10/18/2023 HGB 11.1 (L) 10/18/2023 HCT 34.4 (L) 10/18/2023 MCV 96.6 10/18/2023 MCH 31.2 10/18/2023 MCHC 32.3 10/18/2023 RDW 13.5 10/18/2023 NEUTOPHILPCT 85.4 (H) 10/17/2023 LYMPHOPCT 9.5 (L) 10/17/2023 MONOPCT 4.2 (L) 10/17/2023 EOSPCT 0.0 10/17/2023 BASOPCT 0.1 10/17/2023 NEUTROABS 10.92 (H) 10/17/2023 LYMPHSABS 1.21 10/17/2023 MONOSABS 0.54 10/17/2023 EOSABS 0.00 10/17/2023 BASOSABS 0.01 10/17/2023 PLT 205 10/18/2023 NRBC 0.0 10/17/2023 No X-ray results found for the past 24 hours CV Testing: Encounter Date: 10/17/23 ECG 12 lead Result Value Ventricular Rate 85 QRS DURATION 86 QT Interval 458 QTC CALCULATION(BAZETT) 545 R-Shiloh 107 T Wave Shiloh 238 Impression Atrial fibrillation with premature ventricular or aberrantly conducted complexes Right axis (more content not included)... [facility] 10-18-2023 Note Hospital Medicine Daily Progress Note - 10/18/2023 4:57 PM; Room: [address] [place] [address] Admission: 10/17/2023 7:37 PM; Length of stay: 1 days THE HOSPITALIST TEAM PREFERS TO USE [employer] CHAT FOR COMMUNICATION 7AM-7PM. IF I DO NOT RESPOND WITHIN 15 MINUTES, PLEASE PAGE ME/CALL THROUGH THE MARKETING [employer]. FROM 7PM-7AM, PLEASE PAGE [phone](COVR) Code Status: Full Code Barriers to Discharge: IV diuresis Expected Discharge Date: 2-3 days Discharge Destination: home Overview Patient is seen for evaluation and management of chest pain. Subjective Patient assessed with family at bedside. She denies any current chest pain or shortness of breath. Denies any nausea, vomiting, abdominal pain. Physical Exam Visit Vitals BP 117/69 Pulse 80 Temp 36.5 ???C (97.7 ???F) (Temporal) Resp 24 Intake/Output Summary (Last 24 hours) at 10/18/2023 1657 Last data filed at 10/18/2023 1643 Gross per 24 hour Intake 1732.76 ml Output 2460 ml Net -727.24 ml Physical Exam Vitals reviewed. Constitutional: General: She is awake. She is not in acute distress. Appearance: Normal appearance. She is not ill-appearing. Cardiovascular: Rate and Rhythm: Normal rate. Rhythm irregular. Pulses: Radial pulses are 2+ on the left side. Heart sounds: Normal heart sounds. Pulmonary: Effort: Pulmonary effort is normal. No tachypnea, accessory muscle usage or respiratory distress. Breath sounds: Normal breath sounds. Abdominal: General: Bowel sounds are normal. There is no distension. Palpations: Abdomen is soft. Tenderness: There is no abdominal tenderness. Skin: General: Skin is warm and dry. Neurological: Mental Status: She is alert and oriented to person, place, and time. Mental status is at baseline. Psychiatric: Attention and Perception: Attention normal. Mood and Affect: Mood normal. Speech: Speech normal. Behavior: Behavior is cooperative. Estimated body mass index is 34.61 kg/m??? as calculated from the following: Height as of this encounter: 1.6 m (5' 2.99 ). Weight as of this encounter: 88.6 kg (195 lb 5.2 oz). Active Inpatient Problems Principal Problem: Chest pain Active Problems: NSTEMI (non-ST elevated myocardial infarction) ([facility]) Assessment and Plan NSTEMI Recent RSV infection Essential HTN, controlled Hyperlipidemia DM2, controlled Hypothyroidism GERD, unspecified with out without esophagitis Continue vitals every 4 hours with continuous pulse ox Wean oxygen as tolerated Transition IV steroids to oral tomorrow Cardiology consulted, had left and right heart cath completed today, appreciate recommendations, continue IV Lasix with strict intake and output, daily weights Home med rec completed Continue sliding scale insulin ACHS Echo pending Nutrition Screen VTE Prophylaxis: IV heparin Scheduled Meds aspirin, 81 mg, oral, Daily atorvastatin, 80 mg, oral, Nightly fenofibrate, 160 mg, oral, Daily furosemide, 40 mg, intravenous, q12h insulin aspart, 0-20 Units, subcutaneous, TID with meals And insulin aspart, 0-20 Units, subcutaneous, Nightly levothyroxine, 88 mcg, oral, Daily liothyronine, 15 mcg, oral, Daily metoprolol succinate XL, 100 mg, oral, Daily Oxygen Therapy, , inhalation, Continuous pantoprazole, 40 mg, oral, Daily potassium chloride CR, 20 mEq, oral, 2 times daily [START ON 10/19/2023] predniSONE, 20 mg, oral, Daily Pertinent Investigations Hematology: Results from last 7 days Lab Units 10/18/23 0333 10/17/232012 WBC AUTO 10*3/uL 10.64* 12.78* HEMOGLOBIN g/dL 11.1* 11.9* HEMATOCRIT % 34.4* 36.6 MCV fL 96.6 96.8 PLATELETS AUTO 10*3/uL 205 225 Chemistry: Results from last 7 days Lab Units 10/17/232012 SODIUM mmol/L 138 POTASSIUM mmol/L 3.9 CHLORIDE mmol/L 102 CO2 mmol/L 24 BUN mg/dL 31* CREATININE mg/dL 1.13 GLUCOSE mg/dL 243* CALCIUM mg/dL 9.0 Results from last 7 days Lab Units 10/17/232012 AST U/L 35 ALT U/L 45 ALK PHOS U/L 50 BILIRUBIN TOTAL mg/dL 0.5 Results from last 7 days Lab Units 10/18/23 1615 10/18/23 1135 10/17/23 2150 POCT GLUCOSE mg/dL 196* 201* 217* Historical Values: (Includes values prior to this admission) Lab Results Component Value Date TSH 0.02 (L) 10/18/2023 FREET4 0.86 10/18/2023 No results found for: [id number] , IRON , TIBC , C3 , C4 , JUSTINO , CANCA , ASO , PSA , CEA , CA125 , CA199 , AFP , CA153 Imaging ECG 12 lead Atrial fibrillation Left axis deviation Low voltage QRS Cannot rule out Anteroseptal infarct (cited on or before 17-OCT-2023) T wave abnormality, consider lateral ischemia Abnormal ECG When compared with ECG of 18-OCT-2023 02:19, (unconfirmed) Serial changes of Anteroseptal infarct Present Confirmed by Brenden VIVAS, GRAEME Syed ([id number]) on 10/18/2023 4:55:34 PM ECG 12 lead Atrial fibrillation with premature ventricular or aberrantly conducted complexes Indeterminate axis Pulmonary dis (more content not included)... [facility] 10-18-2023 Note Patient: Rachel Orozco Procedure Information Date/Time: 10/18/23 1730 Procedures: Coronary angiography Right heart cath Location: [facility] DEVICE TEST [facility]INE[facility] 3 / [facility] (Cath) Providers: Antony Henson MD Clinical information reviewed: Allergies Meds Physical Exam Airway Mallampati: II Cardiovascular Rhythm: irregular Rate: normal Dental Pulmonary - normal exam Abdominal - normal exam Anesthesia Plan ASA 3 other (Conscious sedation) intravenous induction Anesthetic plan and risks discussed with patient. Use of blood products discussed with patient who consented to blood products. Plan discussed with attending. Additional Equipment Requests [facility] 10-17-2023 Note Hospital Medicine History and Physical 10/17/2023 8:17 PM THE HOSPITALIST TEAM PREFERS TO USE [employer] CHAT FOR COMMUNICATION 7AM-7PM. IF I DO NOT RESPOND WITHIN 15 MINUTES, PLEASE PAGE ME/CALL THROUGH THE MARKETING [employer]. FROM 7PM-7AM, PLEASE PAGE [phone](COVR) Chief Complaint No chief complaint on file. History of Present Illness Rachel Orozco is an 78 y.o. female admitted from [facility] where she presented with several days history of progressive shortness of breath retrosternal chest discomfort described by her as dull ache at times burning nonradiating associated for dyspnea Patient was recently discharged from [facility] after being admitted for RSV pneumonia since that time she has been having shortness of breath which gets worse with activity she denies any fever chills sinus trouble sore throat she denies any dizziness lightheadedness she feels tired she has history of atrial fibrillation and has been on Eliquis and metoprolol she denies any cardioversion in the past at [facility] she had 2 sets of troponin done 0 these are high-sensitivity troponin 0-hour was 143.6 and subsequent troponin peaked at 2392.5 white count of 14.5 hemoglobin 11.8 hematocrit 37.2 and absolute neutrophil count of 10.5 her BNP was 4199 her EKG showed A-fib with no acute change as per the ER note Patient was started on IV heparin Review of System and Physical Exam Heart Rate: [96] 96 Resp: [24] 24 BP: (145)/(116) 145/116 Physical Exam Review of Systems Problem List Patient Active Problem List Diagnosis Date Noted Chest pain 10/17/2023 Diastolic heart failure ([facility]) 05/19/2022 Atrial fibrillation ([facility]) 12/02/2019 Dyspnea on exertion 06/21/2018 Bradycardia 06/21/2018 Assessment and Plan Non-ST [place] discussed with cardiology will repeat troponin if they are 5 or above patient would need to go to [place] we will continue beta-reanna statin asa IV heparin nitroglycerin infusion pain control follow-up with cardiology. Cough wheezing recent RSV infection we will get chest x-ray sputum Gram stain IV steroids bronchodilators since patient had respiratory symptoms since post COVID will check D-dimer to rule out thromboembolic event hypertension continue home meds low-salt low-fat diet Diabetes mellitus cover with insulin basal postprandial Scale with the steroids anticipate blood sugar going up so will titrate insulin next hyperlipidemia diet and statin Hypothyroidism continue thyroid supplement Gastroesophageal reflux disease proton pump inhibitor CODE STATUS Per discussion with patient and family full code VTE Prophylaxis: IV heparin off I will call you soon as I get the results allow old ambulating was a troponin just came down JIM and they were drawing blood so was little get -Umbilical call you ----- Focus of this inpatient stay will remain on problems that need acute care setting for care. We will review available studies and will order additional labs, imaging and other studies as appropriate. As needed medicines are ordered as appropriate. VTE Prophylaxis will be ordered as appropriate. Please see above for management plan for individual hospital problems. Home medications are reviewed and will be continued as appropriate. Patient will be continued to be followed during this hospital stay by a member of [facility]. Past Medical History No past medical history on file. Past Surgical History No past surgical history on file. Social History Social History Socioeconomic History Marital status: Spouse name: Not on file Number of children: Not on file Years of education: Not on file Highest education level: Not on file Occupational History Not on file Tobacco Use Smoking status: Every Day Types: Cigarettes Smokeless tobacco: Never Substance and Sexual Activity Alcohol use: Not on file Drug use: Not on file Sexual activity: Not on file Other Topics Concern Not on file Social History Narrative Not on file Social Determinants of Health Financial Resource Strain: Not on file Food Insecurity: Not on file Transportation Needs: Not on file Physical Activity: Not on file Stress: Not on file Social Connections: Not on file Intimate Partner Violence: Not on file Housing Stability: Not on file Family History family history is not on file. Allergies is allergic to sulfa (sulfonamide antibiotics). Prior to Admission Medications Medications Prior to Admission Medication Sig Dispense Refill Last Dose apixaban (Eliquis) 5 mg tablet Take 1 tablet by mouth in the morning and at bedtime. atorvastatin (Lipitor) 40 mg tablet Take 40 mg by mouth in the morning. diclofenac (Voltaren) 75 mg EC tablet Take 1 tablet by mouth in the morning. fenofibrate micronized (Lofibra) 134 mg capsule Take 134 mg by mouth in the morning. furosemide (Lasix) 40 mg tablet Take 1 tablet by mouth in t (more content not included)... [facility] 05-24-2023 Note Cardiology Clinic No te Subjective Rachel Orozco is a 78 y.o. year old female With past medical history of permanent atrial fibrillation, Hyperlipidemia, hypothyroidism, hypertension, obstructive sleep apnea without use of CPAP, and pulmonary hypertension seen in follow-up. Patient Active Problem List Diagnosis Dyspnea on exertion Diastolic heart failure (CMS/HCC) Bradycardia Atrial fibrillation (CMS/HCC) No family history on file. Social History Tobacco Use Smoking status: Every Day Types: Cigarettes Smokeless tobacco: Never Update: 05/24/2023 Here for routine follow-up She is dyspneic on exertion if does not take her Lasix Unaware of when she is in A-fib Has mild lower extremity ecchymosis but no significant major bleeding Denies chest pain, palpitations, or lower extremity edema Review of Systems Cardiovascular: Positive for dyspnea on exertion. Negative for chest pain, irregular heartbeat, leg swelling, near-syncope, orthopnea, palpitations, paroxysmal nocturnal dyspnea and syncope. Objective Visit Vitals BP 132/78 (BP Location: Left arm, Patient Position: Sitting, BP Cuff Size: Large adult) Pulse 63 Ht 1.6 m (5' 3 ) Wt 82.7 kg (182 lb 6.4 oz) SpO2 99% BMI 32.31 kg/m??? Smoking Status Every Day BSA 1.92 m??? Physical Exam General: Awake, alert, NAD Pulm: Breath sounds clear to ascultation bilaterally with no wheeze, crackles or rhonchi Cards: Irregularly irregular, S1, S2. No S3 or S4 gallop. Murmur: none Abd: Soft, Nontender, physiologic bowel sounds are present Extr: Lower extremity edema: None. Skin: warm, dry, well perfused Neuro: A&Ox3, No gross deficits Allergies Allergies Allergen Reactions Sulfa (Sulfonamide Antibiotics) Medications Current Outpatient Medications: apixaban (Eliquis) 5 mg tablet, Take 1 tablet by mouth in the morning and at bedtime., Disp: , Rfl: atorvastatin (Lipitor) 40 mg tablet, Take 40 mg by mouth in the morning., Disp: , Rfl: diclofenac (Voltaren) 75 mg EC tablet, Take 1 tablet by mouth in the morning., Disp: , Rfl: fenofibrate micronized (Lofibra) 134 mg capsule, Take 134 mg by mouth in the morning., Disp: , Rfl: furosemide (Lasix) 40 mg tablet, Take 1 tablet by mouth in the morning., Disp: , Rfl: levothyroxine (Synthroid, Levoxyl) 88 mcg tablet, Take 1 tablet by mouth in the morning., Disp: , Rfl: liothyronine (Cytomel) 5 mcg tablet, Take 3 tablets by mouth in the morning., Disp: , Rfl: losartan (Cozaar) 50 mg tablet, Take 1 tablet by mouth in the morning., Disp: , Rfl: metoprolol succinate XL (Toprol-XL) 25 mg 24 hr tablet, Take 25 mg by mouth in the morning., Disp: , Rfl: oxybutynin XL (Ditropan-XL) 10 mg 24 hr tablet, Take 10 mg by mouth in the morning., Disp: , Rfl: Recent Labs 09/09/2022 WBC 4.4, hemoglobin 11.9, hematocrit 36.7, platelets 212 Sodium 140, potassium 4.4, chloride 106, CO2 28.9, BUN 28, serum creatinine 1.04, estimated GFR greater than 60% Total cholesterol 153, HDL 44, triglycerides 132, LDL 82.6 Labs 05/17/2021 CMP: Creatinine 1.09, BUN 29, K4.8, NA 144, ALT 50, AST 26 Lipids: Cholesterol 189, trig 192, HDL 51, LDL 99 Imaging and other tests Echo 05/25/2021 1. Normal ventricular systolic function 2. No significant valvular dysfunction 3. Mildly elevated right-sided pressures with an RVSP of 39 4. Patient appears to be in atrial fibrillation Assessment Diagnoses and all orders for this visit: Persistent atrial fibrillation (CMS/HCC) Mixed hyperlipidemia Essential hypertension Pulmonary hypertension (CMS/HCC) Obstructive sleep apnea Plan 1. Atrial fibrillation -Low symptom burden, she is maintained on metoprolol succinate 25 mg and Eliquis 5 mg twice daily. She is tolerating without bleeding issues. 2. Hyperlipidemia -Controlled on atorvastatin and fenofibrate. Follows with PCP annually for blood work. 3. Hypertension -Controlled, continue current medication regimen. 4. Pulmonary hypertension -Mild with RVSP of 39 on last echo. Discussed importance of obstructive sleep apnea management. Follow up in about 1 year (around 05/24/2024). Keaton Mims APRN-ACCOUNTS RECEIVABLE BOOKKEEPER [facility] Summary Purpose Family History No Family History Records FoundNo Family History Records FoundNo Family History Records Found Advance Directives No Advanced Directives Records FoundNo Advanced Directives Records FoundNo Advanced Directives Records Found Additional Source Comments INFORMATION SOURCE (unrecogn ized section and content) DATE CREATED AUTHOR 12/09/2019 [facility] DATE CREATED AUTHOR AUTHOR'S ORGANIZ ATION 11/02/2022 [facility] DATE CREATED AUTHOR AUTHOR'S ORGANIZ ATION 11/05/2023 [facility] FOR RECORDS PERTAINING TO PATIENTS WHO ARE OR HAVE BEEN ENROLLED IN A CHEMICAL DEPENDENCY/SUBSTANCEABUSE PROGRAM, SOME INFORMATION MAY BE OMITTED. This clinical summary was aggregated from multiple sources. Caution should be exercised in using it in the provision of clinical care. This summary normalizes information from multiple sources, and as a consequence, information in this document may materially change the coding, format and clinical context of patient data. In addition, data may be omitted in some cases. CLINICAL DECISIONS SHOULD BE BASED ON THE PRIMARY CLINICAL RECORDS. [facility]. provides no warranty or guarantee of the accuracy or completeness of information in this document.
[2023-11-22 09:55] LABS: Estimated Average Glucose 143 mg/dL; Glycohemoglobin A1C 6.6 % (4.5-6.2)
[2023-11-22 10:58] LABS: Chol HDL Ratio 3.9; Cholesterol 154 mg/dL (<=200); Free T3 2.76 pg/mL (2.18-3.98); HDL Cholesterol 39 mg/dL (40-60); Thyroid Stimulating Hormone 0.024 uIU/mL (0.358-3.740); Triglycerides 190 mg/dL (<=150)
[2023-11-22 11:13] LABS: Free T4 0.88 ng/dL (0.76-1.46)
== END 2023-11-22 09:07 | disposition home or self-care (01) ==
LOC: LAB 09:08
PROVIDERS: PCP Family Medicine; Visit Provider Family Medicine
DX: Z00.00 Encounter for general adult medical examination without abnormal findings (principal); E78.5 Hyperlipidemia, unspecified; R53.83 Other fatigue; E03.9 Hypothyroidism, unspecified; E11.9 Type 2 diabetes mellitus without complications; E55.9 Vitamin D deficiency, unspecified
CPT/HCPCS: 36415; 80061; 82306; 83036; 84439; 84443; 84481

== ENCOUNTER 2023-12-08 12:32 | Outpatient (OUT) | payer MEDICARE, SELFPAY ==
--- OUTSIDE RECORDS SUMMARY | 2023-12-08 12:36 | XMS_ITS | CCD ---
Author Name Unknown Address [address] [place] [address] Organization [facility] Care Team Providers Care Ampoule Inspector Name Role Phone DENZEL OHARA Admitting Unavailable DENZEL OHARA Attending Unavailable SELF, REFERRED Referring Unavailable BEN KRAFT Primary Care Unavailable HOY, DR CONTRERAS Admitting [...] WHITLEY Admitting Unavailable BIMALBRAYDEN WOLFF Attending Unavailable ANNABELLA OWEN Referring Unavailab le KEATON MIMS Attending Unavailable SAADIA MYLES Attending Unavailable GANGWANI, ANNABELLA DAVIS Referring Unavailab le GANGWANI, ANNABELLA DAVIS Referring Unavailab le MERZA, NOORALDIN Referring Unavailable GANGWANI, ANNABELLA DAVIS Referring Unavailab le PIRKL, BLANCHE Referring Unavailable NILLJax Attending Unavailable Ben Kraft Referring Unavailable Allergies Allergy Classification Reported Allergen(s) Allergy Type Date of Onset Reaction(s) Facility (1 source) Amino Acids Drug Allergy [facility] Repository (1 source) Sulfonamides (Antibiotic) Drug allergy (disorder) 6 [facility] Repository (1 source) Sulfonamides (Antibiotic); 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: [SULFA (SULFONAMIDE ANTIBIOTICS)] Propensity to adverse reactions to drug (disorder) 6 [facility] Repository Problems Active Problems Problem Classification Problem [...] Test Name Value Interpretation Reference Range Facility Physician Referralon 024 Physician Referral [id number] 10 [id number] 0TIFF Normal [facility] Physician Referral [id number] 06 [id number]#1.00 TIFF Normal [facility] Follow-Upon 10-26-2023 Follow-Up [id number] Rachel Orozco 1945 F Date Provider Department Center 10/26/2023 SAADIA TELLEZ CARD [facility] No family history on file Level of Service:332[address] [place] OFFICE/OUTPATIENT ESTABLISHED MOD MDM 30 MIN Reason for Visit and Comments: Hospital Follow-up [832] Normal [facility] BASIC METABOLIC PANELon 10-06 Anion gap [Moles/Vol] 9 mmol/L Normal 7-20 [facility] Comment on above: Performed By: #### L [id number] ####[facility] (BEAKER)[address] [place] [address] Calcium [Mass/Vol] 9.2 mg/dL Normal 8.6-10.3 [facility] Comment on above: Performed By: #### L [id number] ####[facility] (BE[facility])[address] [place] [address] Chloride [Moles/Vol] 100 mmol/L Normal 98-107 [facility] Comment on above: Performed By: #### L [id number] ####[facility] (BEAKER)[address] [place] [address] CO2 [Moles/Vol] 35 mmol/L High 21-31 [facility] Comment on above: Performed By: #### L [id number] ####[facility] ([facility] [place] [address] Creatinine [Mass/Vol] 1.07 mg/dL Normal 0.60-1.20 [facility] Comment on above: Performed By: #### L [id number] ####[facility] ([facility])[address] [place] [address] GLOMERULAR FILTRATION RATE ML/MIN/1.73 SQ M.PREDICTED 53.5 mL/min/1.73m*2 Low >60.0 [facility] Comment on above: Result Comment: [facility]???s estimated glomerular filtration rate (eGFR) will no [...] of individuals. Performed By: #### L [id number] ####[facility] ([facility] [place] [address] Glucose [Mass/Vol] 100 mg/dL Normal 70-100 [facility] Comment on above: Performed By: #### L [id number] ####[facility] ([facility] [place] [address] Potassium [Moles/Vol] 3.7 mmol/L Normal 3.5-5.1 [facility] Comment on above: Performed By: #### L [id number] ####[facility] (BEAKER)[address] [place] [address] Sodium [Moles/Vol] 140 mmol/L Normal 136-145 [facility] Comment on above: Performed By: #### L [id number] ####[facility] (BEAKER)[address] [place] [address] Urea nitrogen [Mass/Vol] 43 mg/dL High 7-25 [facility] Comment on above: Performed By: #### L [id number] ####[facility] (BE[facility]ER)[address] [place] [address] UREA NITROGEN/CREATININE (MASS RATIO) IN SER/PLAS 40.2 Normal [facility] Comment on above: Performed By: #### L [id number] ####[facility] (BE[facility]ER)[address] [place] [address] CBCon 10-20-2023 Erythrocyte distribution width (RBC) [Ratio] 13.5 % Normal 11.5-15.0 [facility] Comment on above: Performed By: #### L [id number] ####[facility] (BEAKER)[address] [place] [address] ERYTHROCYTE MEAN CORPUSCULAR HEMOGLOBIN CONCENTRATION (G/DL) BY AUTOMATED 32.8 g/dL Normal 32.0-35.0 [facility] Comment on above: Performed By: #### L [id number] ####[facility] (BE[facility]ER)[address] [place] [address] Hematocrit (Bld) [Volume fraction] 36.0 % Normal 36.0-48.0 [facility] Comment on above: Performed By: #### L [id number] ####[facility] (BE[facility]ER)[address] [place] [address] Hemoglobin (Bld) [Mass/Vol] 11.8 g/dL Low 12.0-15.0 [facility] Comment on above: Performed By: #### L [id number] ####[facility] (BE[facility]ER)[address] [place] [address] MCH (RBC) [Entitic mass] 31.8 pg Normal 27.0-33.0 [facility] Comment on above: Performed By: #### L [id number] ####[facility] ([facility])[address] [place] [address] MCV (RBC) [Entitic vol] 97.0 fL Normal 82.0-98.0 [facility] Comment on above: Performed By: #### L [id number] ####[facility] ([facility])[address] [place] [address] PLATELETS (10*3/UL) IN BLOOD AUTOMATED COUNT 239 10*3/uL Normal 150-400 [facility] Comment on above: Performed By: #### L [id number] ####[facility] ([facility])[address] [place] [address] RBC (Bld) [#/Vol] 3.71 10*6/uL Low 3.80-5.00 [facility] Comment on above: Performed By: #### L [id number] ####[facility] ([facility])[address] [place] [address] WBC (Bld) [#/Vol] 10.06 10*3/uL Normal 4.00-10.60 [facility] Comment on above: Performed By: #### L [id number] ####[facility] ([facility])[address] [place] [address] POCT GLUCOSE METER UNSOLICIT ED RESULTSon 10-20-2023 Glucose [Mass/Vol] 124 mg/dL High 70-105 [facility] Comment on above: Order Comment: Waive d Testing in the ED is performed under the ED CLIA certificate #[id number]. Result Comment: [email or web address] Performed By: #### L [id number] ####[facility] ([facility] [place] [address] Glucose [Mass/Vol] 96 mg/dL Normal 70-105 [facility] Comment on above: Order Comment: Waive d Testing in the ED is performed under the ED CLIA certificate #[id number]. Result Comment: [email or web address] Performed By: #### L [id number] ####[facility] ([facility])[address] [place] [address] 30on 10-19-2023 30 The patient is Moderately [...] dysrhythmias or at baseline Outcome: Progressing Normal [facility] 30 Daily Case Managemen t Update Multidisciplinary [...] PT? Answer: discharge planning 10/19/23 1156 Normal [facility] 30 Problem: Pain - Adul t Goal: [...] fall injury Outcome: Progressing Flowsheets (Taken 10/19/2023 08) Free from fall injury: Assess patient frequently for physical needs Identify cognitive and physical deficits and behaviors that affect risk of falls [place] fall precautions as indicated by assessment Educate [...] room to hallway door 3x daily Normal [facility] 30 The patient is Moderately Stable - [...] dysrhythmias or at baseline Outcome: Progressing Normal [facility] BASIC METABOLIC PANELon 12- Anion gap [Moles/Vol] 12 mmol/L Normal 7-20 [facility] Comment on above: Performed By: #### L [id number] #### [facility] ([facility]) [address] [place] [address] Calcium [Mass/Vol] 8.7 mg/dL Normal 8.6-10.3 [facility] Comment on above: Performed By: #### L [id number] #### [facility] ([facility]ER) [address] [place] [address] Chloride [Moles/Vol] 99 mmol/L Normal 98-107 [facility] Comment on above: Performed By: #### L [id number] #### [facility] ([facility] [address] [place] [address] CO2 [Moles/Vol] 30 mmol/L Normal 21-31 [facility] Comment on above: Performed By: #### L [id number] #### [facility] ([facility]) [address] [place] [address] Creatinine [Mass/Vol] 1.12 mg/dL Normal 0.60-1.20 [facility] Comment on above: Performed By: #### L [id number] #### [facility] ([facility]) [address] [place] [address] GLOMERULAR FILTRATION RATE ML/MIN/1.73 SQ M.PREDICTED 50.6 mL/min/1.73m*2 Low >60.0 [facility] Comment on above: Result Comment: [facility]???s estimated glomerular filtration rate (eGFR) will no [...] individuals. Performed By: #### L [id number] #### [facility] ([facility]) [address] [place] [address] Glucose [Mass/Vol] 243 mg/dL High 70-100 [facility] Comment on above: Performed By: #### L [id number] #### [facility] ([facility]) [address] [place] [address] Potassium [Moles/Vol] 3.3 mmol/L Low 3.5-5.1 [facility] Comment on above: Performed By: #### L [id number] #### [facility] [address] [place] [address] Sodium [Moles/Vol] 138 mmol/L Normal 136-145 [facility] Comment on above: Performed By: #### L [id number] #### [facility] ([facility]) [address] [place] [address] Urea nitrogen [Mass/Vol] 40 mg/dL High 7-25 [facility] Comment on above: Performed By: #### L [id number] #### [facility] ([facility]) [address] [place] [address] UREA NITROGEN/CREATININE (MASS RATIO) IN SER/PLAS 35.7 Normal [facility] Comment on above: Performed By: #### L [id number] #### [facility] ([facility]) [address] [place] [address] MAGNESIUMon 10-19-2023 Magnesium [Mass/Vol] 1.6 mg/dL Low 1.9-2.7 [facility] Comment on above: Performed By: #### L [id number] #### [facility] ([facility]) [address] [place] [address] PHOSPHORUSon 10-19-2023 Magnesium [Mass/Vol] 3.3 mg/dL Normal 2.5-5.0 [facility] Comment on above: Performed By: #### L [id number] #### [facility] ([facility]) [address] [place] [address] POCT GLUCOSE METER UNSOLICIT ED RESULTSon 10-19-2023 Glucose [Mass/Vol] 252 mg/dL High 70-105 [facility] Comment on above: Order Comment: Waive d Testing in the ED is performed under the ED CLIA certificate #[id number]. Result Comment: [email or web address] in Performed By: #### L [id number] ####[facility] ([facility])[address] [address] Glucose [Mass/Vol] 137 mg/dL High 70-105 [facility] Comment on above: Order Comment: Waive d Testing in the ED is performed under the ED CLIA certificate #[id number]. Result Comment: [email or web address] Performed By: #### L [id number] ####[facility] ([facility])[address] [facility] [place] [address] Glucose [Mass/Vol] 203 mg/dL High 70-105 [facility] Comment on above: Order Comment: Waive d Testing in the ED is performed under the ED CLIA certificate #[id number]. Result Comment: [email or web address] Performed By: #### L [id number] ####[facility] ([facility])[address] [place] [address] Glucose [Mass/Vol] 162 mg/dL High 70-105 [facility] Comment on above: Order Comment: Waive d Testing in the ED is performed under the ED CLIA certificate #[id number]. Result Comment: [email or web address] Performed By: #### L [id number] #### [facility] ([facility]) [address] [place] [address] TROPONIN Ion 10-19-2023 Troponin I.cardiac [Mass/Vol] 3.09 ng/mL Critically high 0.00-0.04 [facility] Comment on above: Result Comment: M-KS EVIOUS CRITICAL RESULT Previous result verified on 10/18/2023 0912 on specimen/case [id number] called with component Troponin I for procedure Troponin I with value 3.51 ng/mL. Performed By: #### L [id number] #### [facility] ([facility]) [address] [place] [address] 30on 10-18-2023 30 Daily Case Managemen t [...] PT Recommendations: OT Recommendations: New Consults: Normal [facility] 30 Problem: Pain - Adul t Goal: Verbalizes/displays adequate comfort level or baseline comfort level Outcome: Progressing Problem: Safety - Adult Goal: Free from fall injury Outcome: Progressing Flowsheets (Taken 10/18/2023799) Free from fall injury: Assess patient frequently for physical needs [place] fall precautions as indicated by assessment Identify [...] of urinary retention Outcome: Progressing Flowsheets (Taken 10/18/2023799) Absence of urinary retention: Assess patient???s ability to void and empty bladder Monitor intake/output and perform bladder scan as needed Goal: Urinary catheter remains patent Outcome: Progressing Flowsheets (Taken 10/18/2023799) Urinary catheter remains patent: Assess patency of urinary catheter The patient is Moderately Stable - Low risk of patient condition declining or worsening The patient's goals for the shift include comfort The clinical goals for the shift include receive cardiac cath without complications Normal [facility] 30 Problem: Pain - Adul t Goal: [...] the shift include stable vitals, safety Normal [facility] APTTon 10-18-2023 ACTIVATED PARTIAL THROMBOPLASTIN TIME IN PPP BY COAGULATION ASSAY 140.1 Seconds Critically high 25.0-35.0 [facility] Comment on above: Result Comment: Clin ical significance of the APTT is questionable in the presence of heparin. Performed By: #### L [id number] #### [facility] ([facility]) [address] [place] [address] ACTIVATED PARTIAL THROMBOPLASTIN TIME IN PPP BY COAGULATION ASSAY 174.6 Seconds Critically high 25.0-35.0 [facility] Comment on above: Order Comment: Check aPTT every 6 hours while on heparin infusion, or per protocol. Result Comment: Clin ical significance of the APTT is questionable in the presence of heparin. Performed By: #### L [id number] #### [facility] ([facility]) [address] [place] [address] B-TYPE NATRIURETIC PEPTIDEon 10-18-2023 Natriuretic peptide B (Bld) [Mass/Vol] 1127 pg/mL High 0-100 [facility] Comment on above: Performed By: #### L [id number] #### [facility] ([facility]) [address] [place] [address] CBCon 10-18-2023 Erythrocyte distribution width (RBC) [Ratio] 13.5 % Normal 11.5-15.0 [facility] Comment on above: Performed By: #### L [id number] #### [facility] ([facility]) [address] [place] [address] ERYTHROCYTE MEAN CORPUSCULAR HEMOGLOBIN CONCENTRATION (G/DL) BY AUTOMATED 32.3 g/dL Normal 32.0-35.0 [facility] Comment on above: Performed By: #### L [id number] #### [facility] ([facility]) [address] [place] [address] Hematocrit (Bld) [Volume fraction] 34.4 % Low 36.0-48.0 [facility] Comment on above: Performed By: #### L [id number] #### [facility] ([facility]) [address] [place] [address] Hemoglobin (Bld) [Mass/Vol] 11.1 g/dL Low 12.0-15.0 [facility] Comment on above: Performed By: #### L [id number] #### [facility] ([facility]) [address] [place] [address] MCH (RBC) [Entitic mass] 31.2 pg Normal 27.0-33.0 [facility] Comment on above: Performed By: #### L [id number] #### [facility] ([facility]) [address] [place] [address] MCV (RBC) [Entitic vol] 96.6 fL Normal 82.0-98.0 [facility] Comment on above: Performed By: #### L [id number] #### [facility] [address] [place] [address] PLATELETS (10*3/UL) IN BLOOD AUTOMATED COUNT 205 10*3/uL Normal 150-400 [facility] Comment on above: Performed By: #### L [id number] #### [facility] ([facility]) [address] [place] [address] RBC (Bld) [#/Vol] 3.56 10*6/uL Low 3.80-5.00 [facility] Comment on above: Performed By: #### L [id number] #### [facility] ([facility]) [address] [place] [address] WBC (Bld) [#/Vol] 10.64 10*3/uL High 4.00-10.60 [facility] Comment on above: Performed By: #### L [id number] #### [facility] ([facility]) [address] [place] [address] CONSULTon 10-18-2023 CONSULT -- Attestation signed by [...] the case with the ER physician from [facility] multiple times, when the cardiac enzyme increase significantly, the patient was transferred to the Vendor Management Consultant after discussing it with Dr. Henson. She [...] and shortness of breath. She presented at [facility] for RSV pneumonia for two days. She was discharged on Monday with mild improvement in her symptoms. Yesterday, patient started experiencing worsening dyspnea episodes, at rest and exertion. She also reports chest discomfort, retrosternal, non-radiating, of severity 5/10, relieved on nitrotabs. At [facility], High sensitivity troponin-143.6---2392. 5/ EKG-afib. Patient was [...] -- 83 25 97 % -- -- 10/17/23 2200 125/85 -- -- 92 23 95 % -- -- 10/17/23 2150 (!) 127/92 -- -- 94 (!) 28 96 % -- -- 10/17/23 2130 139/87 -- -- 96 26 96 % -- -- 10/17/23 2100 (!) 142/96 -- -- 92 24 97 % -- -- 10/17/23 1940 (!) 1 (more content not included)... [facility] HPon 10-18-2023 HP -- Attestation signed by Antony Henson MD at 10/18/2023 9:40 AM Agree Diagnosed with NSTEMI and acute systolic heart failure Proceed with RHC and coronary angiogram H&P reviewed. The patient was examined and there are no changes to the H&P. 78 y.o. female with PMH significant for permanent Afib, HLD, DMII, Hypothyroidism, HTN, BELLE, Pul HTN who was admitted from [facility] where she presented with several days history of progressive shortness of breath retrosternal chest discomfort described by her as dull ache at times burning nonradiating associated for dyspnea. Given her multiple co-morbidities and anginal equivalent pain we will proceed with RHC/LHC to measure left and right sided pressure and also look for any progression of CAD in setting of NSTEMI. Normal [facility] POCT GLUCOSE METER UNSOLICIT ED RESULTSon 10-18-2023 Glucose [Mass/Vol] 307 mg/dL High 70-105 [facility] Comment on above: Order Comment: Waive d Testing in the ED is performed under the ED CLIA certificate #[id number]. Result Comment: [email or web address] [email or web address] Performed By: #### L [id number] #### [facility] ([facility]) [address] [place] [address] Glucose [Mass/Vol] 196 mg/dL High 70-105 [facility] Comment on above: Order Comment: Waive d Testing in the ED is performed under the ED CLIA certificate #[id number]. Result Comment: [email or web address] Performed By: #### L [id number] ####[facility] ([facility])[address] [place] [address] Glucose [Mass/Vol] 201 mg/dL High 70-105 [facility] Comment on above: Order Comment: Waive d Testing in the ED is performed under the ED CLIA certificate #[id number]. Result Comment: [email or web address] Performed By: #### L [id number] #### [facility] ([facility]) [address] [place] [address] T4, FREEon 10-18-2023 THYROXINE (T4) FREE (NG/DL) IN SER/PLAS 0.86 ng/dL Normal 0.71-1.85 [facility] Comment on above: Performed By: #### L [id number] #### [facility] ([facility]) [address] [place] [address] TROPONIN Ion 10-18-2023 Troponin I.cardiac [Mass/Vol] 3.51 ng/mL Critically high 0.00-0.04 [facility] Comment on above: Result Comment: Prev ious result verified on 10/18/2023 0543 on specimen/case [id number] called with component Troponin I for procedure Troponin I with value 4.06 ng/mL. Performed By: #### L [id number] #### [facility] ([facility]) [address] [place] [address] Troponin I.cardiac [Mass/Vol] 4.06 ng/mL Critically high 0.00-0.04 [facility] Comment on above: Result Comment: M-KS EVIOUS CRITICAL RESULT Previous result verified on 10/18/2023 0135 on specimen/case [id number] called with component Troponin I for procedure Troponin I with value 4.29 ng/mL. Performed By: #### L [id number] #### [facility] ([facility]) [address] [place] [address] Troponin I.cardiac [Mass/Vol] 4.29 ng/mL Critically high 0.00-0.04 [facility] Comment on above: Result Comment: M-KS EVIOUS CRITICAL RESULT Previous result verified on 10/17/2023 2151 on specimen/case [id number] called with component Troponin I for procedure Troponin I with value 3.96 ng/mL. Performed By: #### L [id number] ####[facility] ([facility])[address] [place] [address] TSH3 REFLEX TO FT4on 023 THYROTROPIN (MIU/L) IN SER/PLAS BY DETECTION LIMIT <= 0.05 MIU/L 0.02 mIU/L Low 0.34-5.60 [facility] Comment on above: Performed By: #### L [id number] #### [facility] ([facility]) [address] [place] [address] CBC WITH AUTO DIFFERENTIALon 10-17-2023 Basophils (Bld) [#/Vol] 0.01 10*3/uL Normal 0.00-0.20 [facility] Comment on above: Performed By: #### L [id number] #### [facility] ([facility]) [address] [place] [address] Basophils/100 WBC (Bld) 0.1 % Normal 0.0-1.0 [facility] Comment on above: Performed By: #### L [id number] #### [facility] ([facility]) [address] [place] [address] Eosinophils (Bld) [#/Vol] 0.00 10*3/uL Normal 0.00-0.50 [facility] Comment on above: Performed By: #### L [id number] #### [facility] ([facility]) [address] [place] [address] Eosinophils/100 WBC (Bld) 0.0 % Normal 0.0-6.0 [facility] Comment on above: Performed By: #### L [id number] #### [facility] [address] [place] [address] Erythrocyte distribution width (RBC) [Ratio] 13.7 % Normal 11.5-15.0 [facility] Comment on above: Performed By: #### L [id number] #### [facility] ([facility]) [address] [place] [address] ERYTHROCYTE MEAN CORPUSCULAR HEMOGLOBIN CONCENTRATION (G/DL) BY AUTOMATED 32.5 g/dL Normal 32.0-35.0 [facility] Comment on above: Performed By: #### L [id number] #### [facility] ([facility]) [address] [place] [address] Hematocrit (Bld) [Volume fraction] 36.6 % Normal 36.0-48.0 [facility] Comment on above: Performed By: #### L [id number] #### [facility] ([facility]) [address] [place] [address] Hemoglobin (Bld) [Mass/Vol] 11.9 g/dL Low 12.0-15.0 [facility] [facility] Comment on above: Performed By: #### L [id number] #### [facility] (BEAKER) [address] [place] [address] Immature granulocytes (Bld) [#/Vol] 0.10 10*3/uL Normal 0.00-0.20 [facility] Comment on above: Performed By: #### L [id number] #### [facility] ([facility]AKER) [address] [place] [place] [address] Immature granulocytes/100 WBC (Bld) 0.8 % Normal 0.0-1.0 [facility] Comment on above: Performed By: #### L [id number] #### [facility] (BEAKER) [address] [place] [address] Lymphocytes (Bld) [#/Vol] 1.21 10*3/uL Normal 1.20-4.00 [facility] Comment on above: Performed By: #### L [id number] #### [facility] (BEAKER) [address] [place] [address] Lymphocytes/100 WBC (Bld) 9.5 % Low 20.0-45.0 [facility] Comment on above: Performed By: #### L [id number] #### [facility] (BEAKER) [address] [place] [address] MCH (RBC) [Entitic mass] 31.5 pg Normal 27.0-33.0 [facility] Comment on above: Performed By: #### L [id number] #### [facility] (BEAKER) [address] [place] [address] MCV (RBC) [Entitic vol] 96.8 fL Normal 82.0-98.0 [facility] Comment on above: Performed By: #### L [id number] #### [facility] (BEAKER) [address] [place] [address] Monocytes (Bld) [#/Vol] 0.54 10*3/uL Normal 0.10-1.00 [facility] Comment on above: Performed By: #### L [id number] #### [facility] (BE[facility]ER) [address] [place] [address] Monocytes/100 WBC (Bld) 4.2 % Low 5.0-12.0 [facility] Comment on above: Performed By: #### L [id number] #### [facility] ([facility]) [address] [place] [address] Neutrophils (Bld) [#/Vol] 10.92 10*3/uL High 1.60-7.60 [facility] Comment on above: Performed By: #### L [id number] #### [facility] ([facility]) [address] [place] [address] Neutrophils/100 WBC (Bld) 85.4 % High 40.0-72.0 [facility] Comment on above: Performed By: #### L [id number] #### [facility] ([facility]) [address] [place] [address] NRBC (PER 100 WBCS) BY AUTOMATED COUNT 0.0 % Normal 0 [facility] Comment on above: Performed By: #### L [id number] #### [facility] ([facility]) [address] [place] [address] PLATELETS (10*3/UL) IN BLOOD AUTOMATED COUNT 225 10*3/uL Normal 150-400 [facility] Comment on above: Performed By: #### L [id number] #### [facility] ([facility]) [address] [place] [address] RBC (Bld) [#/Vol] 3.78 10*6/uL Low 3.80-5.00 [facility] Comment on above: Performed By: #### L [id number] #### [facility] [address] [place] [address] WBC (Bld) [#/Vol] 12.78 10*3/uL High 4.00-10.60 [facility] Comment on above: Performed By: #### L [id number] #### [facility] [address] [place] [address] COMPREHENSIVE METABOLIC PANE Henok 10-17-2023 Albumin [Mass/Vol] 4.2 g/dL Normal 3.5-5.7 [facility] Comment on above: Performed By: #### L [id number] ####[facility] ([facility])[address] [place] [address] ALP [Catalytic activity/Vol] 50 U/L Normal 34-104 [facility] Comment on above: Performed By: #### L [id number] ####[facility] ([facility])[address] [place] [address] ALT [Catalytic activity/Vol] 45 U/L Normal 7-52 [facility] Comment on above: Performed By: #### L [id number] ####[facility] ([facility])[address] [place] [address] Anion gap [Moles/Vol] 16 mmol/L Normal 7-20 [facility] Comment on above: Performed By: #### L [id number] ####[facility] ([facility])[address] [place] [address] AST [Catalytic activity/Vol] 35 U/L Normal 13-39 [facility] Comment on above: Performed By: #### L [id number] ####[facility] ([facility])[address] [place] [address] Bilirubin [Mass/Vol] 0.5 mg/dL Normal 0.3-1.0 [facility] Comment on above: Performed By: #### L [id number] ####[facility] ([facility])[address] [place] [address] Calcium [Mass/Vol] 9.0 mg/dL Normal 8.6-10.3 [facility] Comment on above: Performed By: #### L [id number] ####[facility] ([facility])[address] [place] [address] Chloride [Moles/Vol] 102 mmol/L Normal 98-107 [facility] Comment on above: Performed By: #### L [id number] ####[facility] ([facility])[address] [place] [address] CO2 [Moles/Vol] 24 mmol/L Normal 21-31 [facility] Comment on above: Performed By: #### L [id number] ####[facility] ([facility])[address] [place] [address] Creatinine [Mass/Vol] 1.13 mg/dL Normal 0.60-1.20 [facility] Comment on above: Performed By: #### L [id number] ####[facility] ([facility])[address] [place] [address] GLOMERULAR FILTRATION RATE ML/MIN/1.73 SQ M.PREDICTED 50.1 mL/min/1.73m*2 Low >60.0 [facility] Comment on above: Result Comment: [facility]???s estimated glomerular filtration rate (eGFR) will no [...] of individuals. Performed By: #### L [id number] ####[facility] ([facility])[address] [place] [address] Glucose [Mass/Vol] 243 mg/dL High 70-100 [facility] Comment on above: Performed By: #### L [id number] ####[facility] ([facility])[address] [place] [address] Potassium [Moles/Vol] 3.9 mmol/L Normal 3.5-5.1 [facility] Comment on above: Performed By: #### L [id number] ####[facility] ([facility])[address] [place] [address] Protein [Mass/Vol] 6.4 g/dL Normal 6.0-8.3 [facility] Comment on above: Performed By: #### L [id number] ####[facility] ([facility])[address] [place] [address] Sodium [Moles/Vol] 138 mmol/L Normal 136-145 [facility] Comment on above: Performed By: #### L [id number] ####[facility] ([facility])[address] [place] [address] Urea nitrogen [Mass/Vol] 31 mg/dL High 7-25 [facility] Comment on above: Performed By: #### L [id number] ####[facility] ([facility])[address] [place] [address] UREA NITROGEN/CREATININE (MASS RATIO) IN SER/PLAS 27.4 Normal [facility] Comment on above: Performed By: #### L [id number] ####[facility] ([facility])[address] [place] [address] D-DIMER, QUANTITATIVEon 10-06 FIBRIN D-DIMER (UG/L FEU) IN PLATELET POOR PLASMA <0.27 Low 0.27-0.49 [facility] Comment on above: Order Comment: D-Dim er values of less than 0.50 ug/ml (FEU) are considered to be a negative predictor of thrombosis. However, the D-Dimer result should be used in conjunction with pretest probability and should not be used alone to diagnose a thrombotic event. Performed By: #### L [id number] ####[facility] ([facility])[address] [place] [address] HPon 10-17-2023 HP History Of Present Illness michoacano Orozco is an 78 y.o. female admitted from [facility] where she presented with several days history of progressive shortness of breath retrosternal chest discomfort described by her as dull ache at times burning nonradiating associated for dyspnea Patient was recently discharged from [facility] after being admitted for RSV pneumonia since that time she has been having shortness of breath which gets worse with activity she denies any fever chills sinus trouble sore throat she denies any dizziness lightheadedness she feels tired she has history of atrial fibrillation and has been on Eliquis and metoprolol she denies any cardioversion in the past at [facility] she had 2 sets of troponin done [...] above patient would need to go to [facility] we will stiven (more content not included)... Normal [facility] POCT GLUCOSE METER UNSOLICIT ED RESULTSon 10-17-2023 Glucose [Mass/Vol] 217 mg/dL High 70-105 [facility] Comment on above: Order Comment: Waive d Testing in the ED is performed under the ED CLIA certificate #[id number]. Result Comment: ebeg in Performed By: #### L [id number] ####[facility] ([facility])[address] [place] [address] TROPONIN Ion 10-17-2023 Troponin I.cardiac [Mass/Vol] 3.96 ng/mL Critically high 0.00-0.04 [facility] Comment on above: Result Comment: M-TR OPONIN INITIAL CRITICAL HIGH; RESPUN AND RETESTED Performed By: #### L [id number] #### [facility] ([facility]) [address] [place] [address] Office Visiton 05-24-2023 Follow-up visit [id number] Rachel Orozco 1945 F Date Provider Department Center 05/24/2023 [id number] MIMS [facility] No family history on file Level of Service:07157 [place] OFFICE/OUTPATIENT ESTABLISHED LOW MDM 20-29 MIN Reason for Visit and Comments: Follow-up [586566] - 1 YR FOLLOW UP Normal [facility] Covid-19 PCR (CVDTB)on 10-07 SARS-CoV-2 (COVID-19) RNA CIARAN+probe Ql (Unsp spec) Not detected Normal NOT DETECTED [facility] Comment on above: Result Comment: When diagnostic [...] for this test is supported by the [place] of Health and Human Service's declaration that [...] used). Performed By: #### C VDTBH #### [facility] [address] [place] [address] Dr. Mildred Álvarez INFLUENZA A AND B AGon 10-[facility] BELOW Normal [facility] Comment on above: Result Comment: Nega tive for Flu A protein angiten. Infection due to Flu A cannot be ruled out. Flu A angiten in the sample may be below the detection limit of the test. Performed By: #### I NFLUAB ####[place] [address]Dr. Mildred Álvarez INFLUBNEGH SEE BELOW Normal [facility] Comment on above: Result Comment: Nega tive for Flu B protein antigen. Infection due to Flu B cannot be ruled out. Flu B antigen in the sample may be below the detection limit of the test. Performed By: #### I NFLUAB ####[facility] [address] [place], [place] [address]Dr. Mildred Álvarez INFLUENZA A AG Negative Normal NEGATIVE SEE COMMENT [facility] Comment on above: Performed By: #### I NFLUAB ####[facility] [address] [place], [place] [address]DrBrendan Álvarez INFLUENZA B AG Negative Normal NEGATIVE SEE COMMENT [facility] Comment on above: Performed By: #### I NFLUAB ####[facility] [address] [place], [place] [address]DrBrendan Álvarez INTERNAL CONTROLS Within Normal Limits Normal Wi thin Normal Limits [facility] Comment on above: Performed By: #### I NFLUAB ####[facility] [address] [place], [place] [address]Dr. Yilan Álvarez OCC BLD IMMUNO SCREENon OCCULT BLOOD Negative Normal NEGATIVE [facility] Comment on above: Performed By: #### O BSCRN #### [facility] [address] [place] [address] Dr. Mildred Álvarez CBC AUTO DIFFon 09-09-2022 BASO # 0.0 103/ul Normal 0.0-0.1 [facility] Comment on above: Performed By: #### C BC #### [facility] [address] [place] [address] Dr. Mildred Álvarez Basophils/100 WBC (Bld) 0.9 % Normal 0.2-2.0 [facility] Comment on above: Performed By: #### C BC #### [facility] [address] [place] [address] Dr. Mildred Álvarez EO # 0.2 103/ul Normal 0.0-0.7 [facility] Comment on above: Performed By: #### C BC #### [facility] [address] [place] [address] Dr. Mildred Álvarez Eosinophils/100 WBC (Bld) 4.8 % Normal 0.9-7.0 [facility] Comment on above: Performed By: #### C BC #### [facility] [address] [place] [address] Dr. Mildred Álvarez Erythrocyte distribution width (RBC) [Ratio] 12.5 % Normal 11.0-15.0 [facility] Comment on above: Performed By: #### C BC #### [facility] [address] [place] [address] Dr. Mildred Álvarez Hematocrit (Bld) [Volume fraction] 36.7 % Normal 36.0-48.0 [facility] Comment on above: Performed By: #### C BC #### [facility] [address] [place] [address] Dr. Mildred Álvarez Hemoglobin (Bld) [Mass/Vol] 11.9 g/dL Critically low 12.0-16.0 [facility] Comment on above: Performed By: #### C BC #### [facility] [address] [place] [address] Dr. Mildred Álvarez IG # 0.02 10e3/ul Normal 0.00-0.03 [facility] Comment on above: Performed By: #### C BC #### [facility] [address] [place] [address] Dr. Mildred Álvarez IG % 0.5 % Normal 0.0-0.5 [facility] Comment on above: Performed By: #### C BC #### [facility] [address] [place] [address] Dr. Mildred Álvarez LYMPH # 1.6 103/ul Normal 1.2-3.8 [facility] Comment on above: Performed By: #### C BC #### [facility] [address] [place] [address] Dr. Mildred Álvarez Lymphocytes/100 WBC (Bld) 37.4 % Normal 20.5-60.0 [facility] Comment on above: Performed By: #### C BC #### [facility] [address] [place] [address] Dr. Mildred Álvarez MANUAL DIFF REQ NO Normal [facility] Comment on above: Performed By: #### C BC #### [facility] [address] [place] [address] Dr. Mildred Álvarez MCH (RBC) [Entitic mass] 32.2 pg Normal 26.7-34.0 [facility] Comment on above: Performed By: #### C BC #### [facility] [address] [place] [address] Dr. Mildred Álvarez MCHC (RBC) [Mass/Vol] 32.4 g/dL Normal 29.9-35.2 [facility] Comment on above: Performed By: #### C BC #### [facility] [address] [place] [address] Dr. Mildred Álvarez MCV (RBC) [Entitic vol] 99.5 fL Critically high 81.0-99.0 [facility] Comment on above: Performed By: #### C BC #### [facility] [address] [place] [address] Dr. Mildred Álvarez MONO # 0.6 103/ul Normal 0.3-0.8 [facility] Comment on above: Performed By: #### C BC #### [facility] [address] [place] [address] Dr. Mildred Álvarez Monocytes/100 WBC (Bld) 13.5 % Critically high 1.7-12.0 [facility] Comment on above: Performed By: #### C BC #### [facility] [address] [place] [address] Dr. Mildred Álvarez NEUT # 1.9 103/ul Normal 1.4-6.5 [facility] Comment on above: Performed By: #### C BC #### [facility] [address] [place] [address] Dr. Mildred Álvarez Neutrophils/100 WBC (Bld) 42.9 % Critically low 43.0-75.0 [facility] Comment on above: Performed By: #### C BC #### [facility] [address] [place] [address] Dr. Mildred Álvarez Platelet mean volume (Bld) [Entitic vol] 11.1 fL Normal 9.5-13.5 [facility] Comment on above: Performed By: #### C BC #### [facility] [address] [place] [address] Dr. Mildred Álvarez PLT 212 103/ul Normal 150-450 [facility] Comment on above: Performed By: #### C BC #### [facility] [address] [place] [address] Dr. Mildred Álvarez RBC 3.69 106/ul Critically low 4.20-5.40 [facility] Comment on above: Performed By: #### C BC #### [facility] [address] [place] [address] Dr. Mildred Álvarez WBC 4.4 103/ul Normal 4.0-11.0 [facility] Comment on above: Performed By: #### C BC #### [facility] [address] [place] [address] Dr. Mildred Álvarez FREE T3on 09-09-2022 FREE T3 1.92 pg/mlL Critically low 2.18-3.98 [facility] Comment on above: Performed By: #### C MP, T4, FT3, LIPID, TSH #### [facility] [address] [place] [address] [address] Mildred Álvarez GLYCOHEMOGLOBIN A1Con 2021 ADA RECOMMENDATION SEE BELOW Normal [facility] Comment on above: Result Comment: ADA RECOMMENDED LIMIT 4.0 - 6.0 ADA THERAPEUTIC TARGET < 7.0 ACTION SUGGESTED > 7.0 Performed By: #### A 1C #### [facility] [address] [place] [address] [address] Mildred Álvarez Glucose [Mass/Vol] 140 mg/dL Normal [facility] Comment on above: Performed By: #### A 1C #### [facility] [address] [place] [address] Dr. Mildred Álvarez HbA1c (Bld) [Mass fraction] 6.5 % Critically high 4.5-6.2 [facility] Comment on above: Performed By: #### A 1C #### [facility] [address] [place] [address] Dr. Mildred Álvarez LIPID PROFILEon 09-09-2022 CHOL-HDL RATIO NORM SEE BELOW Normal [facility] Comment on above: Result Comment: 3.3 - 4.4 LOW RISK 4.4 - 7.1 AVERAGE RISK 7.1 - 11.0 MODERATE RISK >11.0 HIGH RISK Performed By: #### C MP, T4, FT3, LIPID, TSH #### [facility] [address] [place] [address] [address] Mildred Álvarez Cholesterol [Mass/Vol] 153 mg/dL Normal <=200 [facility] Comment on above: Performed By: #### C MP, T4, FT3, LIPID, TSH #### [facility] [address] [place] [address] [address] Mildred Álvarez Cholesterol in HDL [Mass/Vol] 44 mg/dL Normal 40-60 [facility] Comment on above: Performed By: #### C MP, T4, FT3, LIPID, TSH #### [facility] [address] [place] [address] [address] Mildred Álvarez Cholesterol in LDL [Mass/Vol] 82.6 mg/dL Normal [facility] Comment on above: Performed By: #### C MP, T4, FT3, LIPID, TSH #### [facility] [address] [place] [address] Dr. Mildred Álvarez Cholesterol.total/Ch olesterol in HDL [Mass ratio] 3.5 {ratio} Normal [facility] Comment on above: Performed By: #### C MP, T4, FT3, LIPID, TSH #### [facility] [address] [place] [address] [address] Mildred Álvarez HDL NORMAL > or = 60 mg/dl - LO W CARDIOVASCULAR RISK <40 mg/dl - HIGH CARDIOVASCULAR RISK Normal [facility] Comment on above: Performed By: #### C MP, T4, FT3, LIPID, TSH #### [facility] [address] [place] [address] Dr. Mildred Álvarez LDL CALC NORMAL SEE BELOW Normal [facility] Comment on above: Result Comment: <100 mg/dl OPTIMAL 100 - 129 mg/dl NEAR OR ABOVE OPTIMAL 130 - 159 mg/dl BORDERLINE HIGH 160 - 189 mg/dl HIGH >190 mg/dl VERY HIGH Performed By: #### C MP, T4, FT3, LIPID, TSH #### [facility] [address] [place] [address] Dr. Mildred Álvarez Triglyceride [Mass/Vol] 132 mg/dL Normal <=150 [facility] Comment on above: Performed By: #### C MP, T4, FT3, LIPID, TSH #### [facility] [address] [place] [address] Dr. Mildred Álvarez VLDL CALC 26.4 mg/dL Normal [facility] Comment on above: Performed By: #### C MP, T4, FT3, LIPID, TSH #### [facility] [address] [place] [address] Dr. Mildred Álvarez PROF 14(COMP METB)on 022 Albumin [Mass/Vol] 3.7 g/dL Normal 3.4-5.0 [facility] Comment on above: Performed By: #### C MP, T4, FT3, LIPID, TSH #### [facility] [address] [place] [address] Dr. Mildred Álvarez Albumin/Globulin [Mass ratio] 1.2 {ratio} Normal [facility] Comment on above: Performed By: #### C MP, T4, FT3, LIPID, TSH #### [facility] [address] [place] [address] Dr. Mildred Álvarez ALP [Catalytic activity/Vol] 52 U/L Normal 46-116 [facility] Comment on above: Performed By: #### C MP, T4, FT3, LIPID, TSH #### [facility] [address] [place] [address] Dr. Mildred Álvarez ALT [Catalytic activity/Vol] 35 U/L Normal 14-59 [facility] Comment on above: Performed By: #### C MP, T4, FT3, LIPID, TSH #### [facility] [address] [place] [address] Dr. Mildred Álvarez Anion gap [Moles/Vol] 9.5 mmol/L Normal [facility] Comment on above: Performed By: #### C MP, T4, FT3, LIPID, TSH #### [facility] [address] [place] [address] Dr. Mildred Álvarez AST [Catalytic activity/Vol] 19 U/L Normal 15-37 [facility] Comment on above: Performed By: #### C MP, T4, FT3, LIPID, TSH #### [facility] [address] [place] [address] Dr. Mildred Álvarez Bilirubin [Mass/Vol] 0.3 mg/dL Normal 0.2-1.0 [facility] Comment on above: Performed By: #### C MP, T4, FT3, LIPID, TSH #### [facility] [address] [place] [address] Dr. Mildred Álvarez Calcium [Mass/Vol] 9.4 mg/dL Normal 8.5-10.1 [facility] Comment on above: Performed By: #### C MP, T4, FT3, LIPID, TSH #### [facility] [address] [place] [address] [address] Mildred Álvarez Chloride [Moles/Vol] 106 mmol/L Normal 98-107 [facility] Comment on above: Performed By: #### C MP, T4, FT3, LIPID, TSH #### [facility] [address] [place] [address] [address] Mildred Álvarez CO2 [Moles/Vol] 28.9 mmol/L Normal 21.0-32.0 [facility] Comment on above: Performed By: #### C MP, T4, FT3, LIPID, TSH #### [facility] [address] [place] [address] [address] Mildred Álvarez Creatinine [Mass/Vol] 1.04 mg/dL Critically high 0.55-1.02 [facility] Comment on above: Performed By: #### C MP, T4, FT3, LIPID, TSH #### [facility] [address] [place] [address] Dr. Mildred Álvarez EGFR-AF GIBRALTARIAN >60 Normal >=60 [facility] Comment on above: Performed By: #### C MP, T4, FT3, LIPID, TSH #### [facility] [address] [place] [address] [address] Mildred Álvarez EGFR-NON AF GIBRALTARIAN >60 Normal >=60 [facility] Comment on above: Performed By: #### C MP, T4, FT3, LIPID, TSH #### [facility] [address] [place] [address] [address] Mildred Álvarez Globulin (S) [Mass/Vol] 3.2 g/dL Normal [facility] Comment on above: Performed By: #### C MP, T4, FT3, LIPID, TSH #### [facility] [address] [place] [address] [address] Mildred Álvarez Glucose [Mass/Vol] 131 mg/dL Critically high 74-106 [facility] Comment on above: Performed By: #### C MP, T4, FT3, LIPID, TSH #### [facility] [address] [place] [address] [address] Mildred Álvarez Potassium [Moles/Vol] 4.4 mmol/L Normal 3.5-5.1 [facility] Comment on above: Performed By: #### C MP, T4, FT3, LIPID, TSH #### [facility] [address] [place] [address] Dr. Mildred Álvarez Protein [Mass/Vol] 6.9 g/dL Normal 6.4-8.2 [facility] Comment on above: Performed By: #### C MP, T4, FT3, LIPID, TSH #### [facility] [address] [place] [address] Dr. Mildred Álvarez Sodium [Moles/Vol] 140 mmol/L Normal 136-145 [facility] Comment on above: Performed By: #### C MP, T4, FT3, LIPID, TSH #### [facility] [address] [place] [address] Dr. Mildred Álvarez Urea nitrogen [Mass/Vol] 28.0 mg/dL Critically high 7.0-18.0 [facility] Comment on above: Performed By: #### C MP, T4, FT3, LIPID, TSH #### [facility] [address] [place] [address] Dr. Mildred Álvarez Urea nitrogen/Creatinine [Mass ratio] 26.9 mg/mg Normal [facility] Comment on above: Performed By: #### C MP, T4, FT3, LIPID, TSH #### [facility] [address] [place] [address] Dr. Mildred Álvarez T4on 09-09-2022 T4 [Mass/Vol] 5.10 ug/dL Normal 4.80-13.90 [facility] Comment on above: Performed By: #### C MP, T4, FT3, LIPID, TSH #### [facility] [address] [place] [address] Dr. Midlred Álvarez TSHon 09-09-2022 TSH 0.641 uIU/mL Normal 0.358-3.740 [facility] Comment on above: Performed By: #### C MP, T4, FT3, LIPID, TSH #### [facility] [address] [place] [address] Dr. Mildred Álvarez VITAMIN D 25 OHon 09-09-2022 VIT D 25-OH 45.3 ng/mL Normal [facility] Comment on above: Performed By: #### V ITAD ####[facility] [address] [place], [place] [address]TjBrendan Álvarez VIT D RANGES SEE BELOW Normal [facility] Comment on above: Result Comment: <20 ng/mL Vit D deficient 20 - <30 ng/mL Vit D insufficient 30 - 100 ng/mL Vit D sufficient >100 ng/mL Potential Toxicity Performed By: #### V ITAD ####[facility] [id number] [place] [id number] Álvarez MG MAMM SCREEN 3D MIGUEL CADon 06-20-2022 MG MAMM SCREEN 3D MIGUEL CAD Patient: RACHEL OROZCO Exam Date: 06/20/2022 : 1945 Gender:F Ordering : DR BEN KRAFT . Admission #: [id number] Family : Order #: [id number] CLICK HERE TO VIEW EXAM RADIOLOGY REPORT [...] ovarian cancer at age 41. LOCATION: [facility] BREAST COMPOSITION: Scattered areas fibroglandular density. FINDINGS: [...] Sunshine M.D. on 06/20/2022 at 12:49 Normal [facility] Encounters Encounter Date Encounter Type Care Provider Facility Start: 01-02-2024 ambulatory Jax TROY Facility :[facility] Start: 12-01-2023 ambulatory Jax WOODROW Facility:Dean Mahajan [facility] Start: 10-26-2023 End: 10-26-2023 ambulatory SAADIA MARY [facility] Start: 10-19-2023 Evaluation and management of inpatient BLANCHE WELLSCARLITO [facility] Start: 10-18-2023 Evaluation and management of inpatient ANNABELLA RYAN OWEN [facility] Start: 10-18-2023 Evaluation and management of inpatient SHERITAGRIFFINROMANA RAYMOND [facility] Start: 10-17-2023 End: 10-20-2023 Evaluation and management of inpatient BETTY ROBERT [facility] Start: 05-24-2023 ambulatory [facility] Start: 10-26-2022 End: 10-26-[address] BEN KRAFT Facility:[facility] Start: 09-12-2022 End: 09-12-[address] BEN KRAFT Facility:[facility] Start: 09-09-2022 End: 09-10-[address] BEN KRAFT Facility:[facility] Start: 06-20-2022 End: 06-21-[address] BEN KRAFT Facility:[facility] Start: 06-12-2019 End: 06-12-2019 Emergency department patient visit DENZEL OHARA Facility:[facility] Payers Date Payer Category Payer Medicare [id number] 1958 Unknown [id number] 1945 Unknown [id number] 2.16.8 [id number] 1945 Unknown [id number] 2.16.84 [id number] 1945 Unknown [id number] 2.16.84 [id number] 1945 Unknown [id number] 2.16.84 [id number] 1945 Unknown [id number] 2.16.84 [id number] 1945 Unknown [id number] 2.16.8 [id number] Medicare [id number] Clinical Notes 05-24-2023 to 10-26-2023 Note Date & Type Note Facility 10-26-2023 Note Patient here for fol low [facility] for NSTEMI. Underwent heart cath on [...] All other systems reviewed and are negative. [facility] 10-26-2023 Note Cardiovascular Medic ine [facility] SUBJECTIVE No chief complaint on file. Rachel Orozco is a 78 y.o. female here for follow-up after her recent admission to [facility]. HPI Patient here for follow up [facility] for NSTEMI. Underwent heart cath on [...] is an 78 y.o. female admitted from [facility] where she presented with several days history of progressive shortness of breath retrosternal chest discomfort described by her as dull ache at times burning nonradiating associated for dyspnea Patient was recently discharged from [facility] after being admitted for RSV pneumonia since that time she has been having shortness of breath which gets worse with activity she denies any fever chills sinus trouble sore throat she denies any dizziness lightheadedness she feels tired she has history of atrial fibrillation and has been on Eliquis and metoprolol she denies any cardioversion in the past at [facility] she had 2 sets of troponin done [...] mouth in the (more content not included)... [facility] 10-20-2023 Note Hospital Medicine Discharge Summary Final Discharge Diagnosis: Chest pain Admission Diagnosis: Chest pain [R07.9] Hospital course: micho[place]ano Orozco is an 78 y.o. female admitted from [facility] where she presented with several days history of progressive shortness of breath retrosternal chest discomfort described by her as dull ache at times burning nonradiating associated for dyspnea Patient was recently discharged from [facility] after being admitted for RSV pneumonia since that time she has been having shortness of breath which gets worse with activity she denies any fever chills sinus trouble sore throat she denies any dizziness lightheadedness she feels tired she has history of atrial fibrillation and has been on Eliquis and metoprolol she denies any cardioversion in the past at [facility] she had 2 sets of troponin done [...] out without esophagitis Dear Dr. Swapnil MD, [facility] is advised to follow up with you within 1-2 weeks. Follow-up with: Cardiology Scheduled appointments: Future Appointments Date Time Provider Department Center 10/26/2023 11:40 AM Saadia Myles NP [facility] Your medication list START taking these [...] losartan 50 mg tablet Commonly known as: [place] Where to Get Your Medications These medications were sent to [facility] - [address] [place] [address] [address] [facility] [place] [address], [facility] [address] aspirin 81 mg EC tablet atorvastatin 80 [...] AUTO 10*3/uL 239 (more content not included)... [facility] 10-20-2023 Note Physical Therapy Spoke with patient [...] and sign off. Chris Obando PT, DPT [facility] 10-20-2023 Note Patient requires 2 L nc with ambulation to maintain O2 greater than 92% due to her diastolic heart failure. -Danielle Myles, KOBI [facility] 10-20-2023 Note 10/20/23 1345 Home Oxygen Therapy Evaluation Pulse Oximetry on room air at Rest 94 Pulse Ox on room air while walking 88 Pulse Ox on O2 with nasal cannula while walking 95 Patient Qualification for home oxygen Qualifies $ Pulse Oximetry Multiple (home oxygen eval) [facility] 10-20-2023 Note ------ Attestation signed by Graeme [...] 86 QT Interval 458 QTC CALCULATION(BAZETT) 545 R-[place] 107 T Wave [place] 238 Impression Atrial fibrillation with premature ventricular [...] Bubble Study Result Date: 10/18/2023 1 1 [facility] Heart Station [address] [place] [address] [phone] (fax) Echocardiogram-[facility] Name: RACHEL OROZCO Study Date: 10/18/2023 08:28 AM B/P: 124 mmHg/69 mmHg HR: 72 bpm Date of : 1945 Location: [facility] Height: 63 in. Age: 78 year(s) [...] cm?? Aortic V (more content not included)... [facility] 10-20-2023 Note Occupational Therapy Occupational Therapy Evaluation [...] With: Alone Home Adaptive Equipment: (sc, gb, [facility]) Home Layout: One level Home Access: Stairs to enter with rails (2) Bathroom Shower/Tub: Walk-in shower Prior Level of Function Prior Function Level of [place]: Independent with ADLs and functional transfers, Independent [...] Eating meals?: None (Independent) Total Score OT [facility]: 24 Assessment/Plan Plan OT Plan: No skilled OT OT Discharge Recommendations: Home OT - Discharge Recommendations Placed: Yes OT Goals Multi-Disciplinary Problems (from Occupational Therapy) Active Problems Not on file [facility] 10-19-2023 Note 10/19/23 1147 Admission Assessment Questions Verify insurance with patient [...] Discharge? Yes Does the patient have a case managers assigned to them through their insurance? No [...] since she lives alone and is concerned [facility] 10-19-2023 Note Hospital Medicine Daily Progress Note - 10/19/2023 6:04 PM; Room: [address] [place] [address] Admission: 10/17/2023 7:37 PM; Length of stay: 2 days THE HOSPITALIST TEAM PREFERS TO USE [employer] CHAT FOR COMMUNICATION 7AM-7PM. IF I DO NOT RESPOND WITHIN 15 MINUTES, PLEASE PAGE ME/CALL THROUGH THE SHELLFISH CHECKER. FROM 7PM-7AM, PLEASE PAGE [phone](COVR) Code Status: Full Code Barriers to Discharge: [...] Active Problems: NSTEMI (non-ST elevated myocardial infarction) ([facility]) Assessment and Plan NSTEMI Recent RSV infection [...] FREET4 0.86 10/18/2023 No results found for: [id number] , IRON , TIBC , C3 , [...] 07:59, QRS axis (more content not included)... [facility] 10-19-2023 Note [facility]TP CARDIOLOGY INPAT IENT PROGRESS [...] past 24 hours CV Testing: Encounter Date: 12/12/23 ECG 12 lead Result Value Ventricular Rate 85 QRS DURATION 86 QT Interval 458 QTC CALCULATION(BAZETT) 545 R-[place] 107 T Wave [place] 238 Impression Atrial fibrillation with premature ventricular or aberrantly conducted complexes Right axis (more content not included)... [facility] 10-18-2023 Note Hospital Medicine Daily Progress Note - 10/18/2023 4:57 PM; Room: [address] [place] [address] Admission: 10/17/2023 7:37 PM; Length of stay: 1 days THE HOSPITALIST TEAM PREFERS TO USE [email or web address] FOR COMMUNICATION 7AM-7PM. IF I DO NOT RESPOND WITHIN 15 MINUTES, PLEASE PAGE ME/CALL THROUGH THE SHELLFISH CHECKER. FROM 7PM-7AM, PLEASE PAGE [phone](COVR) Code Status: Full Code Barriers to Discharge: [...] Active Problems: NSTEMI (non-ST elevated myocardial infarction) ([facility]) Assessment and Plan NSTEMI Recent RSV infection [...] FREET4 0.86 10/18/2023 No results found for: [id number] , IRON , TIBC , C3 , [...] axis Pulmonary dis (more content not included)... [facility] 10-18-2023 Note Patient: Rachel Orozco Procedure Information Date/Time: 10/18/231729 Procedures: Coronary angiography Right heart cath Location: [facility] PATIENT REGISTRATION SPECIALIST 3 / [facility] (Cath) Providers: Antony Henson [...] Plan discussed with attending. Additional Equipment Requests [facility] 10-17-2023 Note Hospital Medicine History and Physical 10/17/2023 8:17 PM THE HOSPITALIST TEAM PREFERS TO USE [employer] CHAT FOR COMMUNICATION 7AM-7PM. IF I DO NOT RESPOND WITHIN 15 MINUTES, PLEASE PAGE ME/CALL THROUGH THE SHELLFISH CHECKER. FROM 7PM-7AM, PLEASE PAGE [phone](COVR) Chief Complaint No chief complaint on file. History of Present Illness Rachel Orozco is an 78 y.o. female admitted from [facility] where she presented with several days history of progressive shortness of breath retrosternal chest discomfort described by her as dull ache at times burning nonradiating associated for dyspnea Patient was recently discharged from [facility] after being admitted for RSV pneumonia since that time she has been having shortness of breath which gets worse with activity she denies any fever chills sinus trouble sore throat she denies any dizziness lightheadedness she feels tired she has history of atrial fibrillation and has been on Eliquis and metoprolol she denies any cardioversion in the past at [facility] she had 2 sets of troponin done [...] Noted Chest pain 10/17/2023 Diastolic heart failure ([facility]) 05/19/2022 Atrial fibrillation ([facility]) 12/02/2019 Dyspnea on exertion 06/21/2018 Bradycardia 06/21/2018 Assessment and Plan Non-ST MARTIN hide discussed with cardiology will repeat troponin if they are 5 or above patient would need to go to [facility] we will continue beta-reanna statin asa IV [...] this hospital stay by a member of [facility] Medicine. Past Medical History No past medical [...] mouth in t (more content not included)... [facility] 05-24-2023 Note Cardiology Clinic No te Subjective [...] about 1 year (around 05/24/2024). Keaton Mims APRN-KOBI [facility] Cardiovascular Medicine [facility] Summary Purpose Family History No Family History Records FoundNo Family History Records FoundNo Family History Records FoundNo Family History Records Found Advance Directives No Advanced Directives Records FoundNo Advanced Directives Records FoundNo Advanced Directives Records FoundNo Advanced Directives Records Found Additional Source Comments INFORMATION SOURCE (unrecogn ized section and content) DATE CREATED AUTHOR 12/09/2019 [facility] DATE CREATED AUTHOR AUTHOR'S ORGANIZ ATION 11/02/2022 [facility] DATE CREATED AUTHOR AUTHOR'S ORGANIZ ATION 11/05/2023 [facility] DATE CREATED AUTHOR AUTHOR'S ORGANIZ ATION 12/06/2023 [facility] FOR RECORDS PERTAINING TO PATIENTS WHO ARE [...] BE BASED ON THE PRIMARY CLINICAL RECORDS. [employer] provides no warranty or guarantee of the accuracy or completeness of information in this document.
--- NOTE | 2023-12-08 13:18 | CA_ITS ---
Patient Name: ABDON OROZCO MR#: [id number] : 1945 Exam Date: 12/08/2023 Ordering Doctor: SAADIA HERNANDEZ INTERIOR DESIGN ASSISTANT ECHOCARDIOGRAM REPORT PROCEDURE: CA ECHO DOPPLER COMPLETE INDICATIONS: Diastolic heart failure, atrial fibrillation, [place], recent RSV, hypertension, diabetes COMPARISON: None. DESCRIPTION: COMPLETE ECHOCARDIOGRAM Real-time transthoracic echocardiography with 2D, M-mode, spectral and color flow Doppler performed. QUALITY: Technical quality was good. 63 , 165#, BSA 1.78 m2 LEFT VENTRICLE: Normal chamber size. Normal left ventricular wall thickness. LV EF: Global left ventricular systolic function is normal; visually estimated ejection fraction is 55 to 60%. No wall motion abnormalities. DIASTOLIC: Not adequately assessed due to heart rhythm. ATRIAL SEPTUM: Visually appears intact. LEFT ATRIUM: Severe dilatation. RIGHT ATRIUM: Mild dilatation. RIGHT VENTRICLE: Normal chamber size. Normal systolic function. TRICUSPID VALVE: Normal mobility and thickness. Mild regurgitation. Doppler studies reveal severely (>60) elevated right sided pressures. RVSP 60 mmHg MITRAL VALVE: Normal mobility and thickness. No evidence of mitral valve stenosis. There is no mitral annular calcification. Moderate mitral regurgitation. AORTIC VALVE: Normal trileaflet appearance. No visible sclerosis. Normal leaflet mobility. No evidence of aortic valve stenosis. No aortic regurgitation. AORTIC ROOT: Normal diameter and appearance. PULMONIC VALVE: Normal thickness and mobility. No stenosis. Mild to moderate regurgitation. PERICARDIUM: No evidence of pericardial effusion. IVC: Collapses with inspirations. IVC is normal in size. PLEURA: CONCLUSION: 1. Global left ventricular systolic function is normal; visually estimated ejection fraction is 55 to 60% 2. The right ventricle is normal in size and systolic function 3. Biatrial enlargement 4. Unable to determine diastolic function due to heart rhythm 5. Mild tricuspid regurgitation 6. Severely elevated right ventricular systolic pressure; RVSP 60 mmHg 7. Moderate mitral regurgitation 8. Mild to moderate pulmonic regurgitation Adult Echocardiography Procedure Report Left Ventricle LVEDD (3.7 - 5.6 cm): 4.95 cm LVESD (2.2 - 4.0 cm): 3.91 cm LVIVS thickness (0.6 - 1.2 cm): 0.79 cm LVPW thickness (0.5 - 1.0 cm): 0.90 cm LVOT Max Gradient: 3.76 mm[Hg], 2.90 mm[Hg] LVOT Area (cm2): 0.91 m/s Peak Velocity (LVOT): 0.97 m/s, 0.85 m/s LVOT Diameter 2.12 cm Left Atrium LA Volume Index (2D A2C): 50.63 ml/m2 Left Atrium Systolic Dimension: 4.16 cm Mitral Valve Mitral Valve E-Wave Peak Velocity: 1.23 m/s Right Ventricle Aorta AO Root Diam: 3.03 cm Ascending Ao Diam: 2.70 cm Aortic Valve AoV Area (Peak Gabe): 2.11 cm2, 1.99 cm2, 2.26 cm2 Peak Velocity(Antegrade Flow): 1.71 m/s, 1.33 m/s Peak Gradient(Antegrade Flow): 11.71 mm[Hg], 7.04 mm[Hg] Tricuspid Valve Peak Velocity (Regurgitant Flow): 3.76 m/s Pulmonic Valve Peak Velocity: 1.10 m/s Peak Gradient: 4.93 mm[Hg], 4.68 mm[Hg] Right Atrium Right Atrium Systolic Pressure: 53.15 ml, 53.15 ml Dictated by: Ranjeet Henry M.D. on 12/08/2023 at 14:19 Approved by: Ranjeet Henry M.D. on 12/08/2023 at 14:24
== END 2023-12-08 12:33 | disposition home or self-care (01) ==
LOC: CARD 12:33
PROVIDERS: PCP Family Medicine; Visit Provider Nurse Practitioner Family
DX: I50.33 Acute on chronic diastolic (congestive) heart failure (principal)
CPT/HCPCS: 93306

== ENCOUNTER 2023-12-14 15:49 | Outpatient (OUT) | payer MEDICARE, SELFPAY ==
--- OUTSIDE RECORDS SUMMARY | 2023-12-14 16:05 | XMS_ITS | CCD ---
Author Name Unknown Address [address] [place] [address] Organization [facility] Care Team Providers Care Financial Business Analyst Name Role Phone DENZEL OHARA Admitting Unavailable [...] (1 source) Amino Acids Drug Allergy [facility] Repository (1 source) Sulfonamides (Antibiotic) Drug allergy (disorder) 6 [facility] Repository (1 source) Sulfonamides (Antibiotic); 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: [SULFA (SULFONAMIDE ANTIBIOTICS)] Propensity to adverse reactions to drug (disorder) 6 [facility] Repository Problems Active Problems Problem Classification Problem [...] Range Facility Physician Referralon 024 Physician Referral [id number] 10 [id number] 0TIFF Normal [facility] Physician Referral [id number] 06 [id number]#1.00 TIFF Normal [facility] Follow-Upon 10-26-2023 Follow-Up [id number] Rachel Orozco 1945 F Date Provider Department Center 10/26/2023 SAADIA TELLEZ CARD [facility] No family history on file Level of Service:81577 [place] OFFICE/OUTPATIENT ESTABLISHED MOD MDM 30 MIN Reason for Visit and Comments: Hospital Follow-up [832] Normal [facility] BASIC METABOLIC PANELon 10-06 Anion gap [Moles/Vol] 9 mmol/L Normal 7-20 [facility] Comment on above: Performed By: #### L [id number] ####[facility] (BEAKER)[address] [place] [address] Calcium [Mass/Vol] 9.2 mg/dL Normal 8.6-10.3 [facility] Comment on above: Performed By: #### L [id number] ####[facility] (BEAKER)[address] [place] [address] Chloride [Moles/Vol] 100 mmol/L Normal 98-[address] [facility] Comment on above: Performed By: #### L [id number] ####[facility] (BEAKER)[address] [place] [address] CO2 [Moles/Vol] 35 mmol/L High 21-31 [facility] Comment on above: Performed By: #### L [id number] ####[facility] [place] [address] Creatinine [Mass/Vol] 1.07 mg/dL Normal 0.60-1.20 [facility] Comment on above: Performed By: #### L [id number] ####[facility] ([facility])[address] [place] [address] GLOMERULAR FILTRATION RATE ML/MIN/1.73 SQ M.PREDICTED 53.5 mL/min/1.73m*2 Low >60.0 [facility] Comment on above: Result Comment: [facility]???s estimated glomerular filtration rate (eGFR) will no [...] of individuals. Performed By: #### L [id number] ####[facility] ([facility] [place] [address] Glucose [Mass/Vol] 100 mg/dL Normal 70-100 [facility] Comment on above: Performed By: #### L [id number] ####[facility] ([facility] [place] [address] Potassium [Moles/Vol] 3.7 mmol/L Normal 3.5-5.1 [facility] Comment on above: Performed By: #### L [id number] ####[facility] (BEAKER)[address] [place] [address] Sodium [Moles/Vol] 140 mmol/L Normal 136-145 [facility] Comment on above: Performed By: #### L [id number] ####[facility] (BEAKER)[address] [place] [address] Urea nitrogen [Mass/Vol] 43 mg/dL High 7-25 [facility] Comment on above: Performed By: #### L [id number] ####[facility] (BEAKER)[address] [place] [address] UREA NITROGEN/CREATININE (MASS RATIO) IN SER/PLAS 40.2 Normal [facility] Comment on above: Performed By: #### L [id number] ####[facility] (BEAKER)[address] [place] [address] CBCon 10-20-2023 Erythrocyte distribution width (RBC) [Ratio] 13.5 % Normal 11.5-15.0 [facility] Comment on above: Performed By: #### L [id number] ####[facility] (BEAKER)[address] [place] [address] ERYTHROCYTE MEAN CORPUSCULAR HEMOGLOBIN CONCENTRATION (G/DL) BY AUTOMATED 32.8 g/dL Normal 32.0-35.0 [facility] Comment on above: Performed By: #### L [id number] ####[facility] (BEAKER)[address] [place] [address] Hematocrit (Bld) [Volume fraction] 36.0 % Normal 36.0-48.0 [facility] Comment on above: Performed By: #### L [id number] ####[facility] (BEAKER)[address] [place] [address] Hemoglobin (Bld) [Mass/Vol] 11.8 g/dL Low 12.0-15.0 [facility] Comment on above: Performed By: #### L [id number] ####[facility] (BEAKER)[address] [place] [address] MCH (RBC) [Entitic mass] 31.8 pg Normal 27.0-33.0 [facility] Comment on above: Performed By: #### L [id number] ####[facility] ([facility])[address] [place] [address] MCV (RBC) [Entitic vol] 97.0 fL Normal 82.0-98.0 [facility] Comment on above: Performed By: #### L [id number] ####[facility] ([facility])[address] [place] [address] PLATELETS (10*3/UL) IN BLOOD AUTOMATED COUNT 239 10*3/uL Normal 150-400 [facility] Comment on above: Performed By: #### L [id number] ####[facility] ([facility])[address] [place] [address] RBC (Bld) [#/Vol] 3.71 10*6/uL Low 3.80-5.00 [facility] Comment on above: Performed By: #### L [id number] ####[facility] ([facility])[address] [place] [address] WBC (Bld) [#/Vol] 10.06 10*3/uL Normal 4.00-10.[address] [facility] Comment on above: Performed By: #### L [id number] ####[facility] ([facility])[address] [place] [address] POCT GLUCOSE METER UNSOLICIT ED RESULTSon 10-20-2023 Glucose [Mass/Vol] 124 mg/dL High 70-105 [facility] Comment on above: Order Comment: Waive d Testing in the ED is performed under the ED CLIA certificate #[id number]. Result Comment: [email or web address] Performed By: #### L [id number] ####[facility] ([facility])[address] [place] [address] Glucose [Mass/Vol] 96 mg/dL Normal 70-105 [facility] Comment on above: Order Comment: Waive d Testing in the ED is performed under the ED CLIA certificate #[id number]. Result Comment: [email or web address] Performed By: #### L [id number] ####[facility] ([place])[address] [place] [address] 30on 10-19-2023 30 The patient is Moderately [...] dysrhythmias or at baseline Outcome: Progressing Normal [facility] 30 Daily Case Managemen t Update Multidisciplinary [...] PT? Answer: discharge planning 10/19/23 1156 Normal [facility] 30 Problem: Pain - Adul t Goal: [...] and behaviors that affect risk of falls [place] fall precautions as indicated by assessment Educate [...] room to hallway door 3x daily Normal [facility] 30 The patient is Moderately Stable - [...] dysrhythmias or at baseline Outcome: Progressing Normal [facility] BASIC METABOLIC PANELon 12- Anion gap [Moles/Vol] 12 mmol/L Normal 7-20 [facility] Comment on above: Performed By: #### L [id number] #### [facility] (BEAKER) [address] [place] [address] Calcium [Mass/Vol] 8.7 mg/dL Normal 8.6-10.3 [facility] Comment on above: Performed By: #### L [id number] #### [facility] ([facility]AKER) [address] [place] [address] Chloride [Moles/Vol] 99 mmol/L Normal 98-[address] [facility] Comment on above: Performed By: #### L [id number] #### [facility] [address] [place] [address] CO2 [Moles/Vol] 30 mmol/L Normal 21-31 [facility] Comment on above: Performed By: #### L [id number] #### [facility] ([facility]) [address] [place] [address] Creatinine [Mass/Vol] 1.12 mg/dL Normal 0.60-1.20 [facility] Comment on above: Performed By: #### L [id number] #### [facility] ([facility]) [address] [place] [address] GLOMERULAR FILTRATION RATE ML/MIN/1.73 SQ M.PREDICTED 50.6 mL/min/1.73m*2 Low >60.0 [facility] Comment on above: Result Comment: [facility]???s estimated glomerular filtration rate (eGFR) will no [...] individuals. Performed By: #### L [id number] #### [facility] ([facility]) [address] [place] [address] Glucose [Mass/Vol] 243 mg/dL High 70-100 [facility] Comment on above: Performed By: #### L [id number] #### [facility] ([facility]) [address] [place] [address] Potassium [Moles/Vol] 3.3 mmol/L Low 3.5-5.1 [facility] Comment on above: Performed By: #### L [id number] #### [facility] [address] [place] [address] Sodium [Moles/Vol] 138 mmol/L Normal 136-145 [facility] Comment on above: Performed By: #### L [id number] #### [facility] ([facility]) [address] [place] [address] Urea nitrogen [Mass/Vol] 40 mg/dL High 7-25 [facility] Comment on above: Performed By: #### L [id number] #### [facility] ([facility]) [address] [place] [address] UREA NITROGEN/CREATININE (MASS RATIO) IN SER/PLAS 35.7 Normal [facility] Comment on above: Performed By: #### L [id number] #### [facility] ([facility]) [address] [place] [address] MAGNESIUMon 10-19-2023 Magnesium [Mass/Vol] 1.6 mg/dL Low 1.9-2.[address] [facility] Comment on above: Performed By: #### L [id number] #### [facility] ([facility]) [address] [place] [address] PHOSPHORUSon 10-19-2023 Magnesium [Mass/Vol] 3.3 mg/dL Normal 2.5-5.[address] [facility] Comment on above: Performed By: #### L [id number] #### [facility] ([facility]) [address] [place] [address] POCT GLUCOSE METER UNSOLICIT ED RESULTSon 10-19-2023 Glucose [Mass/Vol] 252 mg/dL High 70-105 [facility] Comment on above: Order Comment: Waive d Testing in the ED is performed under the ED CLIA certificate #[id number]. Result Comment: [email or web address] in Performed By: #### L [id number] ####[facility] ([facility])[address] [place] [address] Glucose [Mass/Vol] 137 mg/dL High 70-105 [facility] Comment on above: Order Comment: Waive d Testing in the ED is performed under the ED CLIA certificate #[id number]. Result Comment: [email or web address] Performed By: #### L [id number] ####[facility] ([facility])[address] [facility] [place] [address] Glucose [Mass/Vol] 203 mg/dL High 70-105 [facility] Comment on above: Order Comment: Waive d Testing in the ED is performed under the ED CLIA certificate #[id number]. Result Comment: [email or web address] Performed By: #### L [id number] ####[facility] ([facility])[address] [place] [address] Glucose [Mass/Vol] 162 mg/dL High 70-105 [facility] Comment on above: Order Comment: Waive d Testing in the ED is performed under the ED CLIA certificate #[id number]. Result Comment: [email or web address] Performed By: #### L [id number] #### [facility] ([facility]) [address] [place] [address] TROPONIN Ion 10-19-2023 Troponin I.cardiac [Mass/Vol] 3.09 ng/mL Critically high 0.00-0.04 [facility] Comment on above: Result Comment: M-IA EVIOUS CRITICAL RESULT Previous result verified on 10/18/2023 0912 on specimen/case [id number] called with component Troponin I for procedure Troponin I with value 3.51 ng/mL. Performed By: #### L [id number] #### [facility] ([facility]) [address] [place] [address] 30on 10-18-2023 30 Daily Case Managemen t [...] PT Recommendations: OT Recommendations: New Consults: Normal [facility] 30 Problem: Pain - Adul t Goal: Verbalizes/displays adequate comfort level or baseline comfort level Outcome: Progressing Problem: Safety - Adult Goal: Free from fall injury Outcome: Progressing Flowsheets (Taken 10/18/2023799) Free from fall injury: Assess patient frequently for physical needs [place] fall precautions as indicated by assessment Identify [...] include receive cardiac cath without complications Normal [facility] 30 Problem: Pain - Adul t Goal: [...] the shift include stable vitals, safety Normal [facility] APTTon 10-18-2023 ACTIVATED PARTIAL THROMBOPLASTIN TIME IN PPP BY COAGULATION ASSAY 140.1 Seconds Critically high 25.0-35.0 [facility] Comment on above: Result Comment: Clin ical significance of the APTT is questionable in the presence of heparin. Performed By: #### L [id number] #### [facility] (BEAKER) [address] [place] [address] ACTIVATED PARTIAL THROMBOPLASTIN TIME IN PPP BY COAGULATION ASSAY 174.6 Seconds Critically high 25.0-35.0 [facility] Comment on above: Order Comment: Check aPTT every 6 hours while on heparin infusion, or per protocol. Result Comment: Clin ical significance of the APTT is questionable in the presence of heparin. Performed By: #### L [id number] #### [facility] ([facility]AKER) [address] [place] [address] B-TYPE NATRIURETIC PEPTIDEon 10-18-2023 Natriuretic peptide B (Bld) [Mass/Vol] 1127 pg/mL High 0-100 [facility] Comment on above: Performed By: #### L [id number] #### [facility] ([facility]) [address] [place] [address] CBCon 10-18-2023 Erythrocyte distribution width (RBC) [Ratio] 13.5 % Normal 11.5-15.0 [facility] Comment on above: Performed By: #### L [id number] #### [facility] ([facility]) [address] [place] [address] ERYTHROCYTE MEAN CORPUSCULAR HEMOGLOBIN CONCENTRATION (G/DL) BY AUTOMATED 32.3 g/dL Normal 32.0-35.0 [facility] Comment on above: Performed By: #### L [id number] #### [facility] ([facility]) [address] [place] [address] Hematocrit (Bld) [Volume fraction] 34.4 % Low 36.0-48.0 [facility] Comment on above: Performed By: #### L [id number] #### [facility] ([facility]) [address] [place] [address] Hemoglobin (Bld) [Mass/Vol] 11.1 g/dL Low 12.0-15.0 [facility] Comment on above: Performed By: #### L [id number] #### [facility] ([facility]) [address] [place] [address] MCH (RBC) [Entitic mass] 31.2 pg Normal 27.0-33.0 [facility] Comment on above: Performed By: #### L [id number] #### [facility] ([facility]) [address] [place] [address] MCV (RBC) [Entitic vol] 96.6 fL Normal 82.0-98.0 [facility] Comment on above: Performed By: #### L [id number] #### [facility] [address] [place] [address] PLATELETS (10*3/UL) IN BLOOD AUTOMATED COUNT 205 10*3/uL Normal 150-400 [facility] Comment on above: Performed By: #### L [id number] #### [facility] ([facility]) [address] [place] [address] RBC (Bld) [#/Vol] 3.56 10*6/uL Low 3.80-5.00 [facility] Comment on above: Performed By: #### L [id number] #### [facility] ([facility]) [address] [place] [address] WBC (Bld) [#/Vol] 10.64 10*3/uL High 4.00-10.[address] [facility] Comment on above: Performed By: #### L [id number] #### [facility] ([facility]) [address] [place] [address] CONSULTon 10-18-2023 CONSULT -- Attestation signed by [...] the case with the ER physician from [place] multiple times, when the cardiac enzyme increase significantly, the patient was transferred to the Claims Configuration Analyst after discussing it with Dr. Henson. She with found to have NSTEMI with no significant obstructive disease. However her wedge pressure was significantly elevated. I just reviewed the echocardiogram and it showed ballooning consistent with stress-induced cardiomyopathy or Takotsubo cardiomyopathy. Will maximize diuresis in the management of the acute systolic heart failure. Cardiology Consult Note Reason for Consult: NSTEMI HPI: Rachel Orozoc is a 78 y.o. female patient is presenting for worsening shortness of breath. Past medical history includes: Permanent Afib (on eliquis) HLD DMII Hypothyroidism HTN BELLE Pulmonary hypertension History goes back to last week, when the patient started having a dry cough and shortness of breath. She presented at [facility] for RSV pneumonia for two days. She was discharged on Monday with mild improvement in her symptoms. Yesterday, patient started experiencing worsening dyspnea episodes, at rest and exertion. She also reports chest discomfort, retrosternal, non-radiating, of severity 5/10, relieved on nitrotabs. At [facility], High sensitivity troponin-143.6---2392. 5/ EKG-afib. Patient was [...] 1939 (!) 1 (more content not included)... [facility] HPon 10-18-2023 HP -- Attestation signed [...] BELLE, Pul HTN who was admitted from [facility] where she presented with several days history of progressive shortness of breath retrosternal chest discomfort described by her as dull ache at times burning nonradiating associated for dyspnea. Given her multiple co-morbidities and anginal equivalent pain we will proceed with RHC/LHC to measure left and right sided pressure and also look for any progression of CAD in setting of NSTEMI. Normal [facility] POCT GLUCOSE METER UNSOLICIT ED RESULTSon 10-18-2023 Glucose [Mass/Vol] 307 mg/dL High 70-105 [facility] Comment on above: Order Comment: Waive d Testing in the ED is performed under the ED CLIA certificate #[id number]. Result Comment: [email or web address] Performed By: #### L [id number] #### [facility] ([facility]) [address] [place] [address] Glucose [Mass/Vol] 196 mg/dL High 70-105 [facility] Comment on above: Order Comment: Waive d Testing in the ED is performed under the ED CLIA certificate #[id number]. Result Comment: [email or web address] Performed By: #### L [id number] ####[facility] ([facility])[address] [place] [address] Glucose [Mass/Vol] 201 mg/dL High 70-105 [facility] Comment on above: Order Comment: Waive d Testing in the ED is performed under the ED CLIA certificate #[id number]. Result Comment: [email or web address] Performed By: #### L [id number] #### [facility] ([facility]) [address] [place] [address] T4, FREEon 10-18-2023 THYROXINE (T4) FREE (NG/DL) IN SER/PLAS 0.86 ng/dL Normal 0.71-1.85 [facility] Comment on above: Performed By: #### L [id number] #### [facility] ([facility]) [address] [place] [address] TROPONIN Ion 10-18-2023 Troponin I.cardiac [Mass/Vol] 3.51 ng/mL Critically high 0.00-0.04 [facility] Comment on above: Result Comment: Prev ious result verified on 10/18/2023 0543 on specimen/case [id number] called with component Troponin I for procedure Troponin I with value 4.06 ng/mL. Performed By: #### L [id number] #### [facility] ([facility]) [address] [place] [address] Troponin I.cardiac [Mass/Vol] 4.06 ng/mL Critically high 0.00-0.04 [facility] Comment on above: Result Comment: M-IA EVIOUS CRITICAL RESULT Previous result verified on 10/18/2023 0135 on specimen/case [id number] called with component Troponin I for procedure Troponin I with value 4.29 ng/mL. Performed By: #### L [id number] #### [facility] ([facility]) [address] [place] [address] Troponin I.cardiac [Mass/Vol] 4.29 ng/mL Critically high 0.00-0.04 [facility] Comment on above: Result Comment: M-IA EVIOUS CRITICAL RESULT Previous result verified on 10/17/2023 2151 on specimen/case [id number] called with component Troponin I for procedure Troponin I with value 3.96 ng/mL. Performed By: #### L [id number] ####[facility] ([facility])[address] [place] [address] TSH3 REFLEX TO FT4on 023 THYROTROPIN (MIU/L) IN SER/PLAS BY DETECTION LIMIT <= 0.05 MIU/L 0.02 mIU/L Low 0.34-5.60 [facility] Comment on above: Performed By: #### L [id number] #### [facility] ([facility]) [address] [place] [address] CBC WITH AUTO DIFFERENTIALon 10-17-2023 Basophils (Bld) [#/Vol] 0.01 10*3/uL Normal 0.00-0.20 [facility] Comment on above: Performed By: #### L [id number] #### [facility] ([facility]AKER) [address] [place] [address] Basophils/100 WBC (Bld) 0.1 % Normal 0.0-1.0 [facility] Comment on above: Performed By: #### L [id number] #### [facility] ([facility]ER) [address] [place] [address] Eosinophils (Bld) [#/Vol] 0.00 10*3/uL Normal 0.00-0.50 [facility] Comment on above: Performed By: #### L [id number] #### [facility] (BEAKER) [address] [place] [address] Eosinophils/100 WBC (Bld) 0.0 % Normal 0.0-6.0 [facility] Comment on above: Performed By: #### L [id number] #### [facility] [address] [place] [address] Erythrocyte distribution width (RBC) [Ratio] 13.7 % Normal 11.5-15.0 [facility] Comment on above: Performed By: #### L [id number] #### [facility] ([facility]) [address] [place] [address] ERYTHROCYTE MEAN CORPUSCULAR HEMOGLOBIN CONCENTRATION (G/DL) BY AUTOMATED 32.5 g/dL Normal 32.0-35.0 [facility] Comment on above: Performed By: #### L [id number] #### [facility] ([facility]) [address] [place] [address] Hematocrit (Bld) [Volume fraction] 36.6 % Normal 36.0-48.0 [facility] Comment on above: Performed By: #### L [id number] #### [facility] ([facility]ER) [address] [place] [address] Hemoglobin (Bld) [Mass/Vol] 11.9 g/dL Low 12.0-15.0 [facility] Comment on above: Performed By: #### L [id number] #### [facility] ([facility]ER) [address] [place] [address] Immature granulocytes (Bld) [#/Vol] 0.10 10*3/uL Normal 0.00-0.20 [facility] Comment on above: Performed By: #### L [id number] #### [facility] ([facility]ER) [address] [address] Immature granulocytes/100 WBC (Bld) 0.8 % Normal 0.0-1.0 [facility] Comment on above: Performed By: #### L [id number] #### [facility] ([facility]) [address] [place] [address] Lymphocytes (Bld) [#/Vol] 1.21 10*3/uL Normal 1.20-4.00 [facility] Comment on above: Performed By: #### L [id number] #### [facility] ([facility]) [address] [place] [address] Lymphocytes/100 WBC (Bld) 9.5 % Low 20.0-45.0 [facility] Comment on above: Performed By: #### L [id number] #### [facility] ([facility]ER) [address] [place] [address] MCH (RBC) [Entitic mass] 31.5 pg Normal 27.0-33.0 [facility] Comment on above: Performed By: #### L [id number] #### [facility] ([facility]) [address] [place] [address] MCV (RBC) [Entitic vol] 96.8 fL Normal 82.0-98.0 [facility] Comment on above: Performed By: #### L [id number] #### [facility] ([facility]) [address] [place] [address] Monocytes (Bld) [#/Vol] 0.54 10*3/uL Normal 0.10-1.00 [facility] Comment on above: Performed By: #### L [id number] #### [facility] ([facility]) [address] [place] [address] Monocytes/100 WBC (Bld) 4.2 % Low 5.0-12.0 [facility] Comment on above: Performed By: #### L [id number] #### [facility] ([facility]) [address] [place] [address] Neutrophils (Bld) [#/Vol] 10.92 10*3/uL High 1.60-7.60 [facility] Comment on above: Performed By: #### L [id number] #### [facility] ([facility]) [address] [place] [address] Neutrophils/100 WBC (Bld) 85.4 % High 40.0-72.0 [facility] Comment on above: Performed By: #### L [id number] #### [facility] ([facility]) [address] [place] [address] NRBC (PER 100 WBCS) BY AUTOMATED COUNT 0.0 % Normal 0 [facility] Comment on above: Performed By: #### L [id number] #### [facility] ([facility]) [address] [place] [address] PLATELETS (10*3/UL) IN BLOOD AUTOMATED COUNT 225 10*3/uL Normal 150-400 [facility] Comment on above: Performed By: #### L [id number] #### [facility] ([facility]) [address] [place] [address] RBC (Bld) [#/Vol] 3.78 10*6/uL Low 3.80-5.00 [facility] Comment on above: Performed By: #### L [id number] #### [facility] [address] [place] [address] WBC (Bld) [#/Vol] 12.78 10*3/uL High 4.00-10.[address] [facility] Comment on above: Performed By: #### L [id number] #### [facility] [address] [place] [address] COMPREHENSIVE METABOLIC PANE Henok 10-17-2023 Albumin [Mass/Vol] 4.2 g/dL Normal 3.5-5.7 [facility] Comment on above: Performed By: #### L [id number] ####[facility] ([facility])[address] [place] [address] ALP [Catalytic activity/Vol] 50 U/L Normal 34-104 [facility] Comment on above: Performed By: #### L [id number] ####[facility] ([facility])[address] [place] [address] ALT [Catalytic activity/Vol] 45 U/L Normal 7-52 [facility] Comment on above: Performed By: #### L [id number] ####[facility] ([facility])[address] [place] [address] Anion gap [Moles/Vol] 16 mmol/L Normal 7-20 [facility] Comment on above: Performed By: #### L [id number] ####[facility] ([facility])[address] [place] [address] AST [Catalytic activity/Vol] 35 U/L Normal 13-39 [facility] Comment on above: Performed By: #### L [id number] ####[facility] ([facility])[address] [place] [address] Bilirubin [Mass/Vol] 0.5 mg/dL Normal 0.3-1.[address] [facility] Comment on above: Performed By: #### L [id number] ####[facility] ([facility])[address] [place] [address] Calcium [Mass/Vol] 9.0 mg/dL Normal 8.6-10.3 [facility] Comment on above: Performed By: #### L [id number] ####[facility] ([facility])[address] [place] [address] Chloride [Moles/Vol] 102 mmol/L Normal 98-[address] [facility] Comment on above: Performed By: #### L [id number] ####[facility] ([facility])[address] [place] [address] CO2 [Moles/Vol] 24 mmol/L Normal 21-31 [facility] Comment on above: Performed By: #### L [id number] ####[facility] ([facility])[address] [place] [address] Creatinine [Mass/Vol] 1.13 mg/dL Normal 0.60-1.20 [facility] Comment on above: Performed By: #### L [id number] ####[facility] ([facility])[address] [place] [address] GLOMERULAR FILTRATION RATE ML/MIN/1.73 SQ M.PREDICTED 50.1 mL/min/1.73m*2 Low >60.0 [facility] Comment on above: Result Comment: [facility]???s estimated glomerular filtration rate (eGFR) will no [...] of individuals. Performed By: #### L [id number] ####[facility] ([facility])[address] [place] [address] Glucose [Mass/Vol] 243 mg/dL High 70-100 [facility] Comment on above: Performed By: #### L [id number] ####[facility] ([facility])[address] [place] [address] Potassium [Moles/Vol] 3.9 mmol/L Normal 3.5-5.1 [facility] Comment on above: Performed By: #### L [id number] ####[facility] ([facility])[address] [place] [address] Protein [Mass/Vol] 6.4 g/dL Normal 6.0-8.3 [facility] Comment on above: Performed By: #### L [id number] ####[facility] ([facility])[address] [place] [address] Sodium [Moles/Vol] 138 mmol/L Normal 136-145 [facility] Comment on above: Performed By: #### L [id number] ####[facility] ([facility])[address] [place] [address] Urea nitrogen [Mass/Vol] 31 mg/dL High 7-25 [facility] Comment on above: Performed By: #### L [id number] ####[facility] ([facility])[address] [place] [address] UREA NITROGEN/CREATININE (MASS RATIO) IN SER/PLAS 27.4 Normal [facility] Comment on above: Performed By: #### L [id number] ####[facility] ([facility])[address] [place] [address] D-DIMER, QUANTITATIVEon 10-06 FIBRIN D-DIMER (UG/L FEU) IN PLATELET POOR PLASMA <0.27 Low 0.27-0.49 [facility] Comment on above: Order Comment: D-Dim er values of less than 0.50 ug/ml (FEU) are considered to be a negative predictor of thrombosis. However, the D-Dimer result should be used in conjunction with pretest probability and should not be used alone to diagnose a thrombotic event. Performed By: #### L [id number] ####[facility] ([facility])[address] [place] [address] HPon 10-17-2023 HP History Of Present Illness michoacano Orozco is an 78 y.o. female admitted from [facility] where she presented with several days history of progressive shortness of breath retrosternal chest discomfort described by her as dull ache at times burning nonradiating associated for dyspnea Patient was recently discharged from [facility] after being admitted for RSV pneumonia since that time she has been having shortness of breath which gets worse with activity she denies any fever chills sinus trouble sore throat she denies any dizziness lightheadedness she feels tired she has history of atrial fibrillation and has been on Eliquis and metoprolol she denies any cardioversion in the past at [facility] she had 2 sets of troponin [...] above patient would need to go to Claims Configuration Analyst we will stiven (more content not included)... Normal [facility] POCT GLUCOSE METER UNSOLICIT ED RESULTSon 10-17-2023 Glucose [Mass/Vol] 217 mg/dL High 70-105 [facility] Comment on above: Order Comment: Waive d Testing in the ED is performed under the ED CLIA certificate #[id number]. Result Comment: ebeg in Performed By: #### L [id number] ####[facility] ([facility])[address] [place] [address] TROPONIN Ion 10-17-2023 Troponin I.cardiac [Mass/Vol] 3.96 ng/mL Critically high 0.00-0.04 [facility] Comment on above: Result Comment: M-TR OPONIN INITIAL CRITICAL HIGH; RESPUN AND RETESTED Performed By: #### L [id number] #### [facility] ([facility]) [address] [place] [address] Office Visiton 05-24-2023 Follow-up visit [id number] Rachel Orozco 1945 F Date Provider Department Center 05/24/2023 [id number] MIMS [facility] No family history on file Level of Service:50150 IA OFFICE/OUTPATIENT ESTABLISHED LOW MDM 20-29 MIN Reason for Visit and Comments: Follow-up [408862] - 1 YR FOLLOW UP Normal [facility] Covid-19 PCR (CVDTB)on 10-07 SARS-CoV-2 (COVID-19) RNA CIARAN+probe Ql (Unsp spec) Not detected Normal NOT DETECTED [facility] Comment on above: Result Comment: When [...] for this test is supported by the [place] of [employer] and Human Service's declaration that [...] used). Performed By: #### C VDTBH #### [facility] [address] [place] [address] Dr. Mildred Álvarez INFLUENZA A AND B AGon 10-[facility] BELOW Normal [facility] Comment on above: Result Comment: Nega tive for Flu A protein angiten. Infection due to Flu A cannot be ruled out. Flu A angiten in the sample may be below the detection limit of the test. Performed By: #### I NFLUAB ####[place] [address]Dr. Mildred Álvarez INFLUBNEGH SEE BELOW Normal [facility] Comment on above: Result Comment: Nega tive for Flu B protein antigen. Infection due to Flu B cannot be ruled out. Flu B antigen in the sample may be below the detection limit of the test. Performed By: #### I NFLUAB ####[facility] [address] [place], [place] [address]Dr. Mildred Álvarez INFLUENZA A AG Negative Normal NEGATIVE SEE COMMENT [facility] Comment on above: Performed By: #### I NFLUAB ####[facility] [address] [place], [place] [address]DrBrendan Álvarez INFLUENZA B AG Negative Normal NEGATIVE SEE COMMENT [facility] Comment on above: Performed By: #### I NFLUAB ####[facility] [address] [place], [place] [address]DrBrendan Álvarez INTERNAL CONTROLS Within Normal Limits Normal Wi thin Normal Limits [facility] Comment on above: Performed By: #### I NFLUAB ####[facility] [address] [place], [place] [address]Dr. Yilan Álvarez OCC BLD IMMUNO SCREENon OCCULT BLOOD Negative Normal NEGATIVE [facility] Comment on above: Performed By: #### O BSCRN #### [facility] [address] [place] [address] Dr. Mildred Álvarez CBC AUTO DIFFon 09-09-2022 BASO # 0.0 103/ul Normal 0.0-0.1 [facility] Comment on above: Performed By: #### C BC #### [facility] [address] [place] [address] Dr. Mildred Álvarez Basophils/100 WBC (Bld) 0.9 % Normal 0.2-2.0 [facility] Comment on above: Performed By: #### C BC #### [facility] [address] [place] [address] Dr. Mildred Álvarez EO # 0.2 103/ul Normal 0.0-0.7 [facility] Comment on above: Performed By: #### C BC #### [facility] [address] [place] [address] Dr. Mildred Álvarez Eosinophils/100 WBC (Bld) 4.8 % Normal 0.9-7.0 [facility] Comment on above: Performed By: #### C BC #### [facility] [address] [place] [address] Dr. Mildred Álvarez Erythrocyte distribution width (RBC) [Ratio] 12.5 % Normal 11.0-15.0 [facility] Comment on above: Performed By: #### C BC #### [facility] [address] [place] [address] Dr. Mildred Álvarez Hematocrit (Bld) [Volume fraction] 36.7 % Normal 36.0-48.0 [facility] Comment on above: Performed By: #### C BC #### [facility] [address] [place] [address] Dr. Mildred Álvarez Hemoglobin (Bld) [Mass/Vol] 11.9 g/dL Critically low 12.0-16.0 [facility] Comment on above: Performed By: #### C BC #### [facility] [address] [place] [address] Dr. Mildred Álvarez IG # 0.02 10e3/ul Normal 0.00-0.03 [facility] Comment on above: Performed By: #### C BC #### [facility] [address] [place] [address] Dr. Mildred Álvarez IG % 0.5 % Normal 0.0-0.5 [facility] Comment on above: Performed By: #### C BC #### [facility] [address] [place] [address] Dr. Mildred Álvarez LYMPH # 1.6 103/ul Normal 1.2-3.8 [facility] Comment on above: Performed By: #### C BC #### [facility] [address] [place] [address] Dr. Mildred Álvarez Lymphocytes/100 WBC (Bld) 37.4 % Normal 20.5-60.0 [facility] Comment on above: Performed By: #### C BC #### [facility] [address] [place] [address] Dr. Mildred Álvarez MANUAL DIFF REQ NO Normal [facility] Comment on above: Performed By: #### C BC #### [facility] [address] [place] [address] Dr. Mildred Álvarez MCH (RBC) [Entitic mass] 32.2 pg Normal 26.7-34.0 [facility] Comment on above: Performed By: #### C BC #### [facility] [address] [place] [address] Dr. Mildred Álvarez MCHC (RBC) [Mass/Vol] 32.4 g/dL Normal 29.9-35.2 [facility] Comment on above: Performed By: #### C BC #### [facility] [address] [place] [address] Dr. Mildred Álvarez MCV (RBC) [Entitic vol] 99.5 fL Critically high 81.0-99.0 [facility] Comment on above: Performed By: #### C BC #### [facility] [address] [place] [address] Dr. Mildred Álvarez MONO # 0.6 103/ul Normal 0.3-0.8 [facility] Comment on above: Performed By: #### C BC #### [facility] [address] [place] [address] Dr. Mildred Álvarez Monocytes/100 WBC (Bld) 13.5 % Critically high 1.7-12.0 [facility] Comment on above: Performed By: #### C BC #### [facility] [address] [place] [address] Dr. Mildred Álvarez NEUT # 1.9 103/ul Normal 1.4-6.5 [facility] Comment on above: Performed By: #### C BC #### [facility] [address] [place] [address] Dr. Mildred Álvarez Neutrophils/100 WBC (Bld) 42.9 % Critically low 43.0-75.0 [facility] Comment on above: Performed By: #### C BC #### [facility] [address] [place] [address] Dr. Mildred Álvarez Platelet mean volume (Bld) [Entitic vol] 11.1 fL Normal 9.5-13.5 [facility] Comment on above: Performed By: #### C BC #### [facility] [address] [place] [address] Dr. Mildred Álvarez PLT 212 103/ul Normal 150-450 [facility] Comment on above: Performed By: #### C BC #### [facility] [address] [place] [address] Dr. Mildred Álvarez RBC 3.69 106/ul Critically low 4.20-5.40 [facility] Comment on above: Performed By: #### C BC #### [facility] [address] [place] [address] Dr. Mildred Álvarez WBC 4.4 103/ul Normal 4.0-11.0 [facility] Comment on above: Performed By: #### C BC #### [facility] [address] [place] [address] Dr. Mildred Álvarez FREE T3on 09-09-2022 FREE T3 1.92 pg/mlL Critically low 2.18-3.98 [facility] Comment on above: Performed By: #### C MP, T4, FT3, LIPID, TSH #### [facility] [address] [place] [address] [address] Mildred Álvarez GLYCOHEMOGLOBIN A1Con 2021 ADA RECOMMENDATION SEE BELOW Normal [facility] Comment on above: Result Comment: ADA RECOMMENDED LIMIT 4.0 - 6.0 ADA THERAPEUTIC TARGET < 7.0 ACTION SUGGESTED > 7.0 Performed By: #### A 1C #### [facility] [address] [place] [address] [address] Mildred Álvarez Glucose [Mass/Vol] 140 mg/dL Normal [facility] Comment on above: Performed By: #### A 1C #### [facility] [address] [place] [address] Dr. Mildred Álvarez HbA1c (Bld) [Mass fraction] 6.5 % Critically high 4.5-6.2 [facility] Comment on above: Performed By: #### A 1C #### [facility] [address] [place] [address] Dr. Mildred Álvarez LIPID PROFILEon 09-09-2022 CHOL-HDL RATIO NORM SEE BELOW Normal [facility] Comment on above: Result Comment: 3.3 - 4.4 LOW RISK 4.4 - 7.1 AVERAGE RISK 7.1 - 11.0 MODERATE RISK >11.0 HIGH RISK Performed By: #### C MP, T4, FT3, LIPID, TSH #### [facility] [address] [address] [address] Mildred Álvarez Cholesterol [Mass/Vol] 153 mg/dL Normal <=200 [facility] Comment on above: Performed By: #### C MP, T4, FT3, LIPID, TSH #### [facility] [address] [place] [address] [address] Mildred Álvarez Cholesterol in HDL [Mass/Vol] 44 mg/dL Normal 40-60 [facility] Comment on above: Performed By: #### C MP, T4, FT3, LIPID, TSH #### [facility] [address] [address] [address] Mildred Álvarez Cholesterol in LDL [Mass/Vol] 82.6 mg/dL Normal [facility] Comment on above: Performed By: #### C MP, T4, FT3, LIPID, TSH #### [facility] [address] [place] [address] Dr. Mildred Álvarez Cholesterol.total/Ch olesterol in HDL [Mass ratio] 3.5 {ratio} Normal [facility] Comment on above: Performed By: #### C MP, T4, FT3, LIPID, TSH #### [facility] [address] [address] [address] Mildred Álvarez HDL NORMAL > or = 60 mg/dl - LO W CARDIOVASCULAR RISK <40 mg/dl - HIGH CARDIOVASCULAR RISK Normal [facility] Comment on above: Performed By: #### C MP, T4, FT3, LIPID, TSH #### [facility] [address] [place] [address] Dr. Mildred Álvarez LDL CALC NORMAL SEE BELOW Normal [facility] Comment on above: Result Comment: <100 mg/dl OPTIMAL 100 - 129 mg/dl NEAR OR ABOVE OPTIMAL 130 - 159 mg/dl BORDERLINE HIGH 160 - 189 mg/dl HIGH >190 mg/dl VERY HIGH Performed By: #### C MP, T4, FT3, LIPID, TSH #### [facility] [address] [place] [address] Dr. Mildred Álvarez Triglyceride [Mass/Vol] 132 mg/dL Normal <=150 [facility] Comment on above: Performed By: #### C MP, T4, FT3, LIPID, TSH #### [facility] [address] [place] [address] Dr. Mildred Álvarez VLDL CALC 26.4 mg/dL Normal [facility] Comment on above: Performed By: #### C MP, T4, FT3, LIPID, TSH #### [facility] [address] [place] [address] Dr. Mildred Álvarez PROF 14(COMP METB)on 022 Albumin [Mass/Vol] 3.7 g/dL Normal 3.4-5.0 [facility] Comment on above: Performed By: #### C MP, T4, FT3, LIPID, TSH #### [facility] [address] [place] [address] Dr. Mildred Álvarez Albumin/Globulin [Mass ratio] 1.2 {ratio} Normal [facility] Comment on above: Performed By: #### C MP, T4, FT3, LIPID, TSH #### [facility] [address] [place] [address] Dr. Mildred Álvarez ALP [Catalytic activity/Vol] 52 U/L Normal 46-116 [facility] Comment on above: Performed By: #### C MP, T4, FT3, LIPID, TSH #### [facility] [address] [place] [address] Dr. Mildred Álvarez ALT [Catalytic activity/Vol] 35 U/L Normal 14-59 [facility] Comment on above: Performed By: #### C MP, T4, FT3, LIPID, TSH #### [facility] [address] [place] [address] Dr. Mildred Álvarez Anion gap [Moles/Vol] 9.5 mmol/L Normal [facility] Comment on above: Performed By: #### C MP, T4, FT3, LIPID, TSH #### [facility] [address] [place] [address] Dr. Mildred Álvarez AST [Catalytic activity/Vol] 19 U/L Normal 15-37 [facility] Comment on above: Performed By: #### C MP, T4, FT3, LIPID, TSH #### [facility] [address] [place] [address] Dr. Mildred Álvarez Bilirubin [Mass/Vol] 0.3 mg/dL Normal 0.2-1.0 [facility] Comment on above: Performed By: #### C MP, T4, FT3, LIPID, TSH #### [facility] [address] [place] [address] Dr. Mildred Álvarez Calcium [Mass/Vol] 9.4 mg/dL Normal 8.5-10.1 [facility] Comment on above: Performed By: #### C MP, T4, FT3, LIPID, TSH #### [facility] [address] [address] [address] Mildred Álvarez Chloride [Moles/Vol] 106 mmol/L Normal 98-107 [facility] Comment on above: Performed By: #### C MP, T4, FT3, LIPID, TSH #### [facility] [address] [place] [address] [address] Mildred Álvarez CO2 [Moles/Vol] 28.9 mmol/L Normal 21.0-32.0 [facility] Comment on above: Performed By: #### C MP, T4, FT3, LIPID, TSH #### [facility] [address] [address] [address] Mildred Álvarez Creatinine [Mass/Vol] 1.04 mg/dL Critically high 0.55-1.02 [facility] Comment on above: Performed By: #### C MP, T4, FT3, LIPID, TSH #### [facility] [address] [place] [address] Dr. Mildred Álvarez EGFR-AF BRITISH >60 Normal >=60 [facility] Comment on above: Performed By: #### C MP, T4, FT3, LIPID, TSH #### [facility] [address] [place] [address] [address] Mildred Álvarez EGFR-NON AF BRITISH >60 Normal >=60 [facility] Comment on above: Performed By: #### C MP, T4, FT3, LIPID, TSH #### [facility] [address] [place] [address] [address] Mildred Álvarez Globulin (S) [Mass/Vol] 3.2 g/dL Normal [facility] Comment on above: Performed By: #### C MP, T4, FT3, LIPID, TSH #### [facility] [address] [place] [address] [address] Mildred Álvarez Glucose [Mass/Vol] 131 mg/dL Critically high 74-106 [facility] Comment on above: Performed By: #### C MP, T4, FT3, LIPID, TSH #### [facility] [address] [place] [address] [address] Mildred Álvarez Potassium [Moles/Vol] 4.4 mmol/L Normal 3.5-5.1 [facility] Comment on above: Performed By: #### C MP, T4, FT3, LIPID, TSH #### [facility] [address] [place] [address] Dr. Mildred Álvarez Protein [Mass/Vol] 6.9 g/dL Normal 6.4-8.2 [facility] Comment on above: Performed By: #### C MP, T4, FT3, LIPID, TSH #### [facility] [address] [place] [address] Dr. Mildred Álvarez Sodium [Moles/Vol] 140 mmol/L Normal 136-145 [facility] Comment on above: Performed By: #### C MP, T4, FT3, LIPID, TSH #### [facility] [address] [place] [address] Dr. Mildred Álvarez Urea nitrogen [Mass/Vol] 28.0 mg/dL Critically high 7.0-18.0 [facility] Comment on above: Performed By: #### C MP, T4, FT3, LIPID, TSH #### [facility] [address] [place] [address] Dr. Mildred Álvarez Urea nitrogen/Creatinine [Mass ratio] 26.9 mg/mg Normal [facility] Comment on above: Performed By: #### C MP, T4, FT3, LIPID, TSH #### [facility] [address] [place] [address] Dr. Mildred Álvarez T4on 09-09-2022 T4 [Mass/Vol] 5.10 ug/dL Normal 4.80-13.90 [facility] Comment on above: Performed By: #### C MP, T4, FT3, LIPID, TSH #### [facility] [address] [place] [address] Dr. Mildred Álvarez TSHon 09-09-2022 TSH 0.641 uIU/mL Normal 0.358-3.740 [facility] Comment on above: Performed By: #### C MP, T4, FT3, LIPID, TSH #### [facility] [address] [place] [address] Dr. Mildred Álvarez VITAMIN D 25 OHon 09-09-2022 VIT D 25-OH 45.3 ng/mL Normal [facility] Comment on above: Performed By: #### V ITAD ####[facility] [address] [place], [place] [address]HlBrendan Álvarez VIT D RANGES SEE BELOW Normal [facility] Comment on above: Result Comment: <20 ng/mL Vit D deficient 20 - <30 ng/mL Vit D insufficient 30 - 100 ng/mL Vit D sufficient >100 ng/mL Potential Toxicity Performed By: #### V ITAD ####[facility] [address] [place] [id number] Álvarez MG MAMM SCREEN 3D MIGUEL CADon 06-20-2022 MG MAMM SCREEN 3D MIGUEL CAD Patient: RACHEL OROZCO Exam Date: 06/20/2022 : 1945 Gender:F Ordering : DR BEN KRAFT . Admission #: [id number] Family : Order #: [id number] CLICK HERE TO VIEW EXAM RADIOLOGY REPORT [...] ovarian cancer at age 41. LOCATION: [facility] BREAST COMPOSITION: Scattered areas fibroglandular density. [...] Sunshine M.D. on 06/20/2022 at 12:49 Normal [facility] Encounters Encounter Date Encounter Type Care Provider Facility Start: 01-02-2024 ambulatory Jax TROY Facility :[facility] Start: 12-01-2023 ambulatory Jax WOODROW Facility:Dean Mahajan [place] Start: 10-26-2023 End: 10-26-2023 ambulatory SAADIA MARY [facility] Start: 10-19-2023 Evaluation and management of inpatient BLANCHE WELLSCARLITO [facility] Start: 10-18-2023 Evaluation and management of inpatient ANNABELLA RYAN OWEN [facility] Start: 10-18-2023 Evaluation and management of inpatient SHERITAGRIFFINROMANA RAYMOND [facility] Start: 10-17-2023 End: 10-20-2023 Evaluation and management of inpatient BETTY ROBERT [facility] Start: 05-24-2023 ambulatory [facility] Start: 10-26-2022 End: 10-26-[address] BEN KRAFT Facility:[facility] Start: 09-12-2022 End: 09-12-[address] BEN KRAFT Facility:[facility] Start: 09-09-2022 End: 09-10-[address] BEN KRAFT Facility:[facility] Start: 06-20-2022 End: 06-21-[address] BEN KRAFT Facility:[facility] Start: 06-12-2019 End: 06-12-2019 Emergency department patient visit DENZEL OHARA Facility:[facility] Payers Date Payer Category Payer Medicare [id number] 1958 Unknown [id number] 1945 Unknown [id number] [id number] 1945 Unknown [id number] 2.16.84 [id number] 1945 Unknown [id number] 2.16.84 [id number] 1945 Unknown [id number] 2.16.84 [id number] 1945 Unknown [id number] 2.16.84 [id number] 1945 Unknown [id number] 2.16.8 [id number] Medicare [id number] Clinical Notes 05-24-2023 to 10-26-2023 Note Date & Type Note Facility 10-26-2023 Note Patient here for fol low [facility] for NSTEMI. Underwent heart cath on [...] All other systems reviewed and are negative. [facility] 10-26-2023 Note Cardiovascular Medic ine [facility] SUBJECTIVE No chief complaint on file. Rachel Orozco is a 78 y.o. female here for follow-up after her recent admission to [facility]. HPI Patient here for follow up [facility] for NSTEMI. Underwent heart cath [...] is an 78 y.o. female admitted from [facility] where she presented with several days history of progressive shortness of breath retrosternal chest discomfort described by her as dull ache at times burning nonradiating associated for dyspnea Patient was recently discharged from [facility] after being admitted for RSV pneumonia since that time she has been having shortness of breath which gets worse with activity she denies any fever chills sinus trouble sore throat she denies any dizziness lightheadedness she feels tired she has history of atrial fibrillation and has been on Eliquis and metoprolol she denies any cardioversion in the past at [facility] she had 2 sets of troponin [...] mouth in the (more content not included)... [facility] 10-20-2023 Note Hospital Medicine Discharge Summary Final Discharge Diagnosis: Chest pain Admission Diagnosis: Chest pain [R07.9] Hospital course: michoacano Orozco is an 78 y.o. female admitted from [facility] where she presented with several days history of progressive shortness of breath retrosternal chest discomfort described by her as dull ache at times burning nonradiating associated for dyspnea Patient was recently discharged from [facility] after being admitted for RSV pneumonia since that time she has been having shortness of breath which gets worse with activity she denies any fever chills sinus trouble sore throat she denies any dizziness lightheadedness she feels tired she has history of atrial fibrillation and has been on Eliquis and metoprolol she denies any cardioversion in the past at [facility] she had 2 sets of troponin [...] out without esophagitis Dear Dr. Swapnil MD, [facility] is advised to follow up with you within 1-2 weeks. Follow-up with: Cardiology Scheduled appointments: Future Appointments Date Time Provider Department Center 10/26/2023 11:40 AM Saadia Myles NP [facility] Your medication list START taking these [...] Medications These medications were sent to [facility] - [address] [place] [address] [facility] [place] [address], [facility] [address] aspirin 81 mg EC tablet atorvastatin 80 [...] AUTO 10*3/uL 239 (more content not included)... [facility] 10-20-2023 Note Physical Therapy Spoke with patient [...] and sign off. Chris Obando PT, DPT [facility] 10-20-2023 Note Patient requires 2 L nc with ambulation to maintain O2 greater than 92% due to her diastolic heart failure. -Danielle Myles, KOBI [facility] 10-20-2023 Note 10/20/23 1345 Home Oxygen Therapy Evaluation Pulse Oximetry on room air at Rest 94 Pulse Ox on room air while walking 88 Pulse Ox on O2 with nasal cannula while walking 95 Patient Qualification for home oxygen Qualifies $ Pulse Oximetry Multiple (home oxygen eval) [facility] 10-20-2023 Note ------ Attestation signed by Graeme [...] 86 QT Interval 458 QTC CALCULATION(BAZETT) 545 R-[place] 107 T Wave [place] 238 Impression Atrial fibrillation with premature ventricular [...] Bubble Study Result Date: 10/18/2023 1 1 [facility] Heart Station [address] [place] [address] [phone] (fax) Echocardiogram-[facility] Name: RACHEL OROZCO Study Date: 10/18/2023 08:28 AM B/P: 124 mmHg/69 mmHg HR: 72 bpm Date of : 1945 Location: [facility] Height: 63 in. Age: 78 [...] cm?? Aortic V (more content not included)... [facility] 10-20-2023 Note Occupational Therapy Occupational Therapy Evaluation [...] With: Alone Home Adaptive Equipment: (sc, gb, [facility]) Home Layout: One level Home Access: Stairs to enter with rails (2) Bathroom Shower/Tub: Walk-in shower Prior Level of Function Prior Function Level of Wilkinson: Independent with ADLs and functional transfers, Independent [...] Eating meals?: None (Independent) Total Score OT [facility]: 24 Assessment/Plan Plan OT Plan: No skilled OT OT Discharge Recommendations: Home OT - Discharge Recommendations Placed: Yes OT Goals Multi-Disciplinary Problems (from Occupational Therapy) Active Problems Not on file [facility] 10-19-2023 Note 10/19/23 1147 Admission Assessment Questions [...] Yes Does the patient have a case management rn assigned to them through their insurance? No [...] since she lives alone and is concerned [facility] 10-19-2023 Note Hospital Medicine Daily Progress Note - 10/19/2023 6:04 PM; Room: [address] [place] [address] Admission: 10/17/2023 7:37 PM; Length of stay: 2 days THE HOSPITALIST TEAM PREFERS TO USE [employer] CHAT FOR COMMUNICATION 7AM-7PM. IF I DO NOT RESPOND WITHIN 15 MINUTES, PLEASE PAGE ME/CALL THROUGH THE INTERNAL COMMUNICATIONS SPECIALIST. FROM 7PM-7AM, PLEASE PAGE [phone](COVR) Code Status: Full Code Barriers to Discharge: [...] Active Problems: NSTEMI (non-ST elevated myocardial infarction) ([facility]) Assessment and Plan NSTEMI Recent [...] FREET4 0.86 10/18/2023 No results found for: [id number] , IRON , TIBC , C3 , [...] 07:59, QRS axis (more content not included)... [facility] 10-19-2023 Note [facility]TP CARDIOLOGY INPAT IENT PROGRESS [...] 86 QT Interval 458 QTC CALCULATION(BAZETT) 545 R-[place] 107 T Wave [place] 238 Impression Atrial fibrillation with premature ventricular or aberrantly conducted complexes Right axis (more content not included)... [facility] 10-18-2023 Note Hospital Medicine Daily Progress Note - 10/18/2023 4:57 PM; Room: [address] [place] [address] Admission: 10/17/2023 7:37 PM; Length of stay: 1 days THE HOSPITALIST TEAM PREFERS TO USE imeem FOR COMMUNICATION 7AM-7PM. IF I DO NOT RESPOND WITHIN 15 MINUTES, PLEASE PAGE ME/CALL THROUGH THE INTERNAL COMMUNICATIONS SPECIALIST. FROM 7PM-7AM, PLEASE PAGE [phone](COVR) Code Status: Full Code Barriers to Discharge: [...] Active Problems: NSTEMI (non-ST elevated myocardial infarction) ([facility]) Assessment and Plan NSTEMI Recent [...] FREET4 0.86 10/18/2023 No results found for: [id number] , IRON , TIBC , C3 , [...] axis Pulmonary dis (more content not included)... [facility] 10-18-2023 Note Patient: Rachel Orozco Procedure Information Date/Time: 10/18/231729 Procedures: Coronary angiography Right heart cath Location: [facility] SYSTEMS INTEGRATION MANAGER 3 / [facility] (Cath) Providers: Antony [...] Plan discussed with attending. Additional Equipment Requests [facility] 10-17-2023 Note Hospital Medicine History and Physical 10/17/2023 8:17 PM THE HOSPITALIST TEAM PREFERS TO USE [employer] CHAT FOR COMMUNICATION 7AM-7PM. IF I DO NOT RESPOND WITHIN 15 MINUTES, PLEASE PAGE ME/CALL THROUGH THE INTERNAL COMMUNICATIONS SPECIALIST. FROM 7PM-7AM, PLEASE PAGE [phone](COVR) Chief Complaint No chief complaint on file. History of Present Illness Rachel Orozco is an 78 y.o. female admitted from [facility] where she presented with several days history of progressive shortness of breath retrosternal chest discomfort described by her as dull ache at times burning nonradiating associated for dyspnea Patient was recently discharged from [facility] after being admitted for RSV pneumonia since that time she has been having shortness of breath which gets worse with activity she denies any fever chills sinus trouble sore throat she denies any dizziness lightheadedness she feels tired she has history of atrial fibrillation and has been on Eliquis and metoprolol she denies any cardioversion in the past at [facility] she had 2 sets of troponin [...] Noted Chest pain 10/17/2023 Diastolic heart failure ([facility]) 05/19/2022 Atrial fibrillation ([facility]) 12/02/2019 Dyspnea on exertion 06/21/2018 Bradycardia 06/21/2018 Assessment and Plan Non-ST MARTIN hide discussed with cardiology will repeat troponin if they are 5 or above patient would need to go to Claims Configuration Analyst we will continue beta-reanna statin asa IV [...] this hospital stay by a member of [facility]. Past Medical History No past medical [...] mouth in t (more content not included)... [facility] 05-24-2023 Note Cardiology Clinic No te Subjective [...] 1 year (around 05/24/2024). Keaton Mims APRN-KOBI [facility] Cardiovascular Medicine [facility] Summary Purpose Family History No Family History Records FoundNo Family History Records FoundNo Family History Records FoundNo Family History Records Found Advance Directives No Advanced Directives Records FoundNo Advanced Directives Records FoundNo Advanced Directives Records FoundNo Advanced Directives Records Found Additional Source Comments INFORMATION SOURCE (unrecogn ized section and content) DATE CREATED AUTHOR 12/09/2019 [facility] DATE CREATED AUTHOR AUTHOR'S ORGANIZ ATION 11/02/2022 [facility] DATE CREATED AUTHOR AUTHOR'S ORGANIZ ATION 11/05/2023 [facility] DATE CREATED AUTHOR AUTHOR'S ORGANIZ ATION 12/06/2023 [facility] FOR RECORDS PERTAINING TO PATIENTS WHO ARE [...] BE BASED ON THE PRIMARY CLINICAL RECORDS. [employer] provides no warranty or guarantee of the accuracy or completeness of information in this document.
[2023-12-14 16:21] LABS: Bilirubin Urine NEGATIVE (NEGATIVE); Blood Urine NEGATIVE (NEGATIVE); Clarity Urine CLEAR (CLEAR); Color Urine YELLOW (YELLOW); Glucose Urine UA 500 mg/dL (NEGATIVE); Ketones Urine NEGATIVE (NEGATIVE); Leukocyte Esterase Urine NEGATIVE (NEGATIVE); Nitrite Urine NEGATIVE (NEGATIVE); Protein Urine NEGATIVE (NEG/TRACE); Specific Gravity Urine 1.025 (1.005-1.025); Urobilinogen Urine 0.2 EU/dL (0.2-1.0)
[2023-12-14 16:48] LABS: Bacteria Urine NONE SEEN #/HPF (NONE SEEN); Cast Seen? NONE SEEN #/LPF (NONE SEEN); Crystals Seen? None Seen #/HPF (None Seen); Mucus Urine NONE SEEN (NONE SEEN); RBC Urine NONE SEEN #/HPF (0-2); Squamous Epithelial Cell Urine FEW #/LPF (NONE/RARE); WBC Urine NONE SEEN #/HPF (NONE SEEN)
[2023-12-14 16:56] LABS: Basophils Absolute Auto 0.1 10^3/uL (0.0-0.1); Eosinophils Absolute Auto 0.1 10^3/uL (0.0-0.7); Hematocrit 41.2 % (36.0-48.0); Immature Granulocytes Abs Auto 0.02 10^3/uL (0.00-0.03); Immature Granulocytes Pct Auto 0.4 % (0.0-0.5); Lymphocytes Absolute Auto 1.9 10^3/uL (1.2-3.8); Lymphocytes Percent Auto 37.5 % (20.5-60.0); Mean Corpuscular HGB Conc 31.6 g/dL (29.9-35.2); Mean Corpuscular Hemoglobin 30.7 pg (26.7-34.0); Mean Corpuscular Volume 97.2 fL (81.0-99.0); Mean Platelet Volume 11.9 fL (9.5-13.5); Monocytes Absolute Auto 0.6 10^3/uL (0.3-0.8); Monocytes Percent Auto 12.2 % (1.7-12.0); Neutrophils Absolute Auto 2.4 10^3/uL (1.4-6.5); Neutrophils Percent Auto 47.9 % (43.0-75.0); Platelet Count 285 10^3/uL (150-450); Red Blood Count 4.24 10^6/uL (4.20-5.40); Red Cell Distribution Width 12.9 % (11.0-15.0)
[2023-12-14 17:02] LABS: Ammonia <10 umol/L (11-32)
[2023-12-14 17:04] LABS: Alanine Aminotransferase 126 U/L (14-59); Albumin Globulin Ratio 1.1; Alkaline Phosphatase 58 U/L (46-116); Anion Gap 20.1; Aspartate Amino Transferase 145 U/L (15-37); BUN Creatinine Ratio 29.7; Bilirubin Total 0.7 mg/dL (0.2-1.0); Calcium 10.2 mg/dL (8.5-10.1); Carbon Dioxide 21.6 mmol/L (21.0-32.0); Chloride 101 mmol/L (98-107); Estimated GFR (African America 33 (>=60); Estimated GFR (Non-African Ame 27 (>=60); Globulin 3.7 g/dL; Glucose 123 mg/dL (74-106); Potassium 4.7 mmol/L (3.5-5.1); Sodium 138 mmol/L (136-145); Total Protein 7.7 g/dL (6.4-8.2)
[2023-12-14 17:14] LABS: Amylase 66 U/L (25-115); Free T3 4.35 pg/mL (2.18-3.98); Troponin I High Sensitivity 14.4 pg/mL (4.0-51.3)
== END 2023-12-14 15:50 | disposition home or self-care (01) ==
LOC: LAB 15:57
PROVIDERS: PCP Family Medicine; Visit Provider Family Medicine
DX: R10.9 Unspecified abdominal pain (principal)
CPT/HCPCS: 36415; 80053; 81001; 82140; 82150; 83690; 83880; 84436; 84443; 84481; 84484; 85025; 87086

== ENCOUNTER 2023-12-15 19:51 | Inpatient (IN) | payer MEDICARE, SELFPAY ==
[2023-12-15] VITALS (20 sets, daily range): BP systolic 70–140; BP diastolic 42–72; PULSE 80–150; RESP 14–27; TEMP 36.4; O2SAT 88–98
--- OUTSIDE RECORDS SUMMARY | 2023-12-15 20:09 | XMS_ITS | CCD ---
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 thrombotic event. Performed By: #### L [id number] ####[facility] ([facility])[address] [place] [address] HPon 10-17-2023 HP History Of Present Illness michoacano Orozco is an 78 y.o. female admitted from [facility] where she presented with several days history of progressive shortness of breath retrosternal chest discomfort described by her as dull ache at times burning nonradiating associated for dyspnea Patient was recently discharged from [facility] after being admitted for RSV pneumonia since that time she has been having shortness of breath which gets worse with activity she denies any fever chills sinus trouble sore throat she denies any dizziness lightheadedness she feels tired she has history of atrial fibrillation and has been on Eliquis and metoprolol she denies any cardioversion in the past at [facility] she had 2 sets of troponin done [...] above patient would need to go to [facility] we will stiven (more content not included)... Normal [facility] POCT GLUCOSE METER UNSOLICIT ED RESULTSon 10-17-2023 Glucose [Mass/Vol] 217 mg/dL High 70-[facility] Comment on above: Order Comment: Waive d Testing in the ED is performed under the ED CLIA certificate #[id number]. Result Comment: ebeg in Performed By: #### L [id number] ####[facility] ([facility])[address] [place] [address] TROPONIN Ion 10-17-2023 Troponin I.cardiac [Mass/Vol] 3.96 ng/mL Critically high 0.00-0.[address] [facility] Comment on above: Result Comment: M-TR OPONIN INITIAL CRITICAL HIGH; RESPUN AND RETESTED Performed By: #### L [id number] #### [facility] ([facility]) [address] [place] [address] Office Visiton 05-24-2023 Follow-up visit [id number] Rachel Orozco 1945 F Date Provider Department Center 05/24/2023 [id number] MIMS [facility] No family history on file Level of Service:26825 [facility] OFFICE/OUTPATIENT ESTABLISHED LOW MDM 20-29 MIN Reason for Visit and Comments: Follow-up [272401] - 1 YR FOLLOW UP Normal [facility] Covid-19 PCR (CVDTB)on 10-07 SARS-CoV-2 (COVID-19) RNA CIARAN+probe Ql (Unsp spec) Not detected Normal NOT DETECTED [facility] Comment on above: Result Comment: When [...] for this test is supported by the [place] of Health and Human Service's declaration that [...] used). Performed By: #### C VDTBH #### [facility] [address] [place] [address] Dr. Mildred Álvarez INFLUENZA A AND B [facility]on 10-[facility] Normal [facility] Comment on above: Result Comment: Nega tive for Flu A protein angiten. Infection due to Flu A cannot be ruled out. Flu A angiten in the sample may be below the detection limit of the test. Performed By: #### I NFLUAB ####[place] [address]Dr. Mildred Álvarez INFLUBNEGH SEE BELOW Normal [facility] Comment on above: Result Comment: Nega tive for Flu B protein antigen. Infection due to Flu B cannot be ruled out. Flu B antigen in the sample may be below the detection limit of the test. Performed By: #### I NFLUAB ####[facility] [address] [place], [place] [address]Dr. Mildred Álvarez INFLUENZA A AG Negative Normal NEGATIVE SEE COMMENT [facility] Comment on above: Performed By: #### I NFLUAB ####[facility] [address] [place], [place] [address]DrBrendan Álvarez INFLUENZA B AG Negative Normal NEGATIVE SEE COMMENT [facility] Comment on above: Performed By: #### I NFLUAB ####[facility] [address] [place], [place] [address]DrBrendan Álvarez INTERNAL CONTROLS Within Normal Limits Normal Wi thin Normal Limits [facility] Comment on above: Performed By: #### I NFLUAB ####[facility] [address] [place], [place] [address]Dr. Yilan Álvarez OCC BLD IMMUNO SCREENon OCCULT BLOOD Negative Normal NEGATIVE [facility] Comment on above: Performed By: #### O BSCRN #### [facility] [address] [place] [address] Dr. Mildred Álvarez CBC AUTO DIFFon 09-09-2022 BASO # 0.0 103/ul Normal 0.0-0.1 [facility] Comment on above: Performed By: #### C BC #### [facility] [address] [place] [address] Dr. Mildred Álvarez Basophils/100 WBC (Bld) 0.9 % Normal 0.2-2.0 [facility] Comment on above: Performed By: #### C BC #### [facility] [address] [place] [address] Dr. Mildred Álvarez EO # 0.2 103/ul Normal 0.0-0.7 [facility] Comment on above: Performed By: #### C BC #### [facility] [address] [place] [address] Dr. Mildred Álvarez Eosinophils/100 WBC (Bld) 4.8 % Normal 0.9-7.0 [facility] Comment on above: Performed By: #### C BC #### [facility] [address] [place] [address] Dr. Mildred Álvarez Erythrocyte distribution width (RBC) [Ratio] 12.5 % Normal 11.0-15.0 [facility] Comment on above: Performed By: #### C BC #### [facility] [address] [place] [address] Dr. Mildred Álvarez Hematocrit (Bld) [Volume fraction] 36.7 % Normal 36.0-48.0 [facility] Comment on above: Performed By: #### C BC #### [facility] [address] [place] [address] Dr. Mildred Álvarez Hemoglobin (Bld) [Mass/Vol] 11.9 g/dL Critically low 12.0-16.0 [facility] Comment on above: Performed By: #### C BC #### [facility] [address] [place] [address] Dr. Mildred Álvarez IG # 0.02 10e3/ul Normal 0.00-0.03 [facility] Comment on above: Performed By: #### C BC #### [facility] [address] [place] [address] Dr. Mildred Álvarez IG % 0.5 % Normal 0.0-0.5 [facility] Comment on above: Performed By: #### C BC #### [facility] [address] [place] [address] Dr. Mildred Álvarez LYMPH # 1.6 103/ul Normal 1.2-3.8 [facility] Comment on above: Performed By: #### C BC #### [facility] [address] [place] [address] Dr. Mildred Álvarez Lymphocytes/100 WBC (Bld) 37.4 % Normal 20.5-60.0 [facility] Comment on above: Performed By: #### C BC #### [facility] [address] [place] [address] Dr. Mildred Álvarez MANUAL DIFF REQ NO Normal [facility] Comment on above: Performed By: #### C BC #### [facility] [address] [place] [address] Dr. Mildred Álvarez MCH (RBC) [Entitic mass] 32.2 pg Normal 26.7-34.0 [facility] Comment on above: Performed By: #### C BC #### [facility] [address] [place] [address] Dr. Mildred Álvarez MCHC (RBC) [Mass/Vol] 32.4 g/dL Normal 29.9-35.2 [facility] Comment on above: Performed By: #### C BC #### [facility] [address] [place] [address] Dr. Mildred Álvarez MCV (RBC) [Entitic vol] 99.5 fL Critically high 81.0-99.0 [facility] Comment on above: Performed By: #### C BC #### [facility] [address] [place] [address] Dr. Mildred Álvarez MONO # 0.6 103/ul Normal 0.3-0.8 [facility] Comment on above: Performed By: #### C BC #### [facility] [address] [place] [address] Dr. Mildred Álvarez Monocytes/100 WBC (Bld) 13.5 % Critically high 1.7-12.0 [facility] Comment on above: Performed By: #### C BC #### [facility] [address] [place] [address] Dr. Mildred Álvarez NEUT # 1.9 103/ul Normal 1.4-6.5 [facility] Comment on above: Performed By: #### C BC #### [facility] [address] [place] [address] Dr. Mildred Álvarez Neutrophils/100 WBC (Bld) 42.9 % Critically low 43.0-75.0 [facility] Comment on above: Performed By: #### C BC #### [facility] [address] [place] [address] Dr. Mildred Álvarez Platelet mean volume (Bld) [Entitic vol] 11.1 fL Normal 9.5-13.5 [facility] Comment on above: Performed By: #### C BC #### [facility] [address] [place] [address] Dr. Mildred Álvarez PLT 212 103/ul Normal 150-450 [facility] Comment on above: Performed By: #### C BC #### [facility] [address] [place] [address] Dr. Mildred Álvarez RBC 3.69 106/ul Critically low 4.20-5.40 [facility] Comment on above: Performed By: #### C BC #### [facility] [address] [place] [address] Dr. Mildred Álvarez WBC 4.4 103/ul Normal 4.0-11.0 [facility] Comment on above: Performed By: #### C BC #### [facility] [address] [place] [address] Dr. Mildred Álvarez FREE T3on 09-09-2022 FREE T3 1.92 pg/mlL Critically low 2.18-3.98 [facility] Comment on above: Performed By: #### C MP, T4, FT3, LIPID, TSH #### [facility] [address] [place] [address] [address] Mildred Álvarez GLYCOHEMOGLOBIN A1Con 2021 ADA RECOMMENDATION SEE BELOW Normal [facility] [place] Comment on above: Result Comment: ADA RECOMMENDED LIMIT 4.0 - 6.0 ADA THERAPEUTIC TARGET < 7.0 ACTION SUGGESTED > 7.0 Performed By: #### A 1C #### [facility] [address] [address] [address] Mildred Álvarez Glucose [Mass/Vol] 140 mg/dL Normal [facility] [place] Comment on above: Performed By: #### A 1C #### [facility] [address] [place] [address] Dr. Mildred Álvarez HbA1c (Bld) [Mass fraction] 6.5 % Critically high 4.5-6.2 [facility] Comment on above: Performed By: #### A 1C #### [facility] [address] [place] [address] Dr. Mildred Álvarez LIPID PROFILEon 09-09-2022 CHOL-HDL RATIO NORM SEE BELOW Normal [facility] Comment on above: Result Comment: 3.3 - 4.4 LOW RISK 4.4 - 7.1 AVERAGE RISK 7.1 - 11.0 MODERATE RISK >11.0 HIGH RISK Performed By: #### C MP, T4, FT3, LIPID, TSH #### [facility] [address] [address] [address] Mildred Álvarez Cholesterol [Mass/Vol] 153 mg/dL Normal <=200 [facility] Comment on above: Performed By: #### C MP, T4, FT3, LIPID, TSH #### [facility] [address] [address] [address] Mildred Álvarez Cholesterol in HDL [Mass/Vol] 44 mg/dL Normal 40-60 [facility] Comment on above: Performed By: #### C MP, T4, FT3, LIPID, TSH #### [facility] [address] [address] [address] Mildred Álvarez Cholesterol in LDL [Mass/Vol] 82.6 mg/dL Normal [facility] Comment on above: Performed By: #### C MP, T4, FT3, LIPID, TSH #### [facility] [address] [place] [address] Dr. Mildred Álvarez Cholesterol.total/Ch olesterol in HDL [Mass ratio] 3.5 {ratio} Normal [facility] Comment on above: Performed By: #### C MP, T4, FT3, LIPID, TSH #### [facility] [address] [address] [address] Mildred Álvarez HDL NORMAL > or = 60 mg/dl - LO W CARDIOVASCULAR RISK <40 mg/dl - HIGH CARDIOVASCULAR RISK Normal [facility] Comment on above: Performed By: #### C MP, T4, FT3, LIPID, TSH #### [facility] [address] [place] [address] Dr. Mildred Álvarez LDL CALC NORMAL SEE BELOW Normal [facility] Comment on above: Result Comment: <100 mg/dl OPTIMAL 100 - 129 mg/dl NEAR OR ABOVE OPTIMAL 130 - 159 mg/dl BORDERLINE HIGH 160 - 189 mg/dl HIGH >190 mg/dl VERY HIGH Performed By: #### C MP, T4, FT3, LIPID, TSH #### [facility] [address] [place] [address] Dr. Mildred Álvarez Triglyceride [Mass/Vol] 132 mg/dL Normal <=150 [facility] Comment on above: Performed By: #### C MP, T4, FT3, LIPID, TSH #### [facility] [address] [place] [address] Dr. Mildred Álvarez VLDL CALC 26.4 mg/dL Normal [facility] Comment on above: Performed By: #### C MP, T4, FT3, LIPID, TSH #### [facility] [address] [place] [address] Dr. Mildred Álvarez PROF 14(COMP METB)on 022 Albumin [Mass/Vol] 3.7 g/dL Normal 3.4-5.0 [facility] Comment on above: Performed By: #### C MP, T4, FT3, LIPID, TSH #### [facility] [address] [place] [address] Dr. Mildred Álvarez Albumin/Globulin [Mass ratio] 1.2 {ratio} Normal [facility] Comment on above: Performed By: #### C MP, T4, FT3, LIPID, TSH #### [facility] [address] [place] [address] Dr. Mildred Álvarez ALP [Catalytic activity/Vol] 52 U/L Normal 46-116 [facility] Comment on above: Performed By: #### C MP, T4, FT3, LIPID, TSH #### [facility] [address] [place] [address] Dr. Mildred Álvarez ALT [Catalytic activity/Vol] 35 U/L Normal 14-59 [facility] Comment on above: Performed By: #### C MP, T4, FT3, LIPID, TSH #### [facility] [address] [place] [address] Dr. Mildred Álvarez Anion gap [Moles/Vol] 9.5 mmol/L Normal [facility] Comment on above: Performed By: #### C MP, T4, FT3, LIPID, TSH #### [facility] [address] [place] [address] Dr. Mildred Álvarez AST [Catalytic activity/Vol] 19 U/L Normal 15-37 [facility] Comment on above: Performed By: #### C MP, T4, FT3, LIPID, TSH #### [facility] [address] [place] [address] Dr. Mildred Álvarez Bilirubin [Mass/Vol] 0.3 mg/dL Normal 0.2-1.0 [facility] Comment on above: Performed By: #### C MP, T4, FT3, LIPID, TSH #### [facility] [address] [place] [address] Dr. Mildred Álvarez Calcium [Mass/Vol] 9.4 mg/dL Normal 8.5-10.1 [facility] Comment on above: Performed By: #### C MP, T4, FT3, LIPID, TSH #### [facility] [address] [address] [address] Mildred Álvarez Chloride [Moles/Vol] 106 mmol/L Normal 98-107 [facility] Comment on above: Performed By: #### C MP, T4, FT3, LIPID, TSH #### [facility] [address] [place] [address] [address] Mildred Álvarez CO2 [Moles/Vol] 28.9 mmol/L Normal 21.0-32.0 [facility] Comment on above: Performed By: #### C MP, T4, FT3, LIPID, TSH #### [facility] [address] [address] [address] Mildred Álvarez Creatinine [Mass/Vol] 1.04 mg/dL Critically high 0.55-1.02 [facility] Comment on above: Performed By: #### C MP, T4, FT3, LIPID, TSH #### [facility] [address] [place] [address] Dr. Mildred Álvarez EGFR-AF GIBRALTARIAN >60 Normal >=60 [facility] Comment on above: Performed By: #### C MP, T4, FT3, LIPID, TSH #### [facility] [address] [place] [address] [address] Mildred Álvarez EGFR-NON AF GIBRALTARIAN >60 Normal >=60 [facility] Comment on above: Performed By: #### C MP, T4, FT3, LIPID, TSH #### [facility] [address] [place] [address] [address] Mildred Álvarez Globulin (S) [Mass/Vol] 3.2 g/dL Normal [facility] Comment on above: Performed By: #### C MP, T4, FT3, LIPID, TSH #### [facility] [address] [place] [address] [address] Mildred Álvarez Glucose [Mass/Vol] 131 mg/dL Critically high 74-106 [facility] Comment on above: Performed By: #### C MP, T4, FT3, LIPID, TSH #### [facility] [address] [place] [address] [address] Mildred Álvarez Potassium [Moles/Vol] 4.4 mmol/L Normal 3.5-5.1 [facility] Comment on above: Performed By: #### C MP, T4, FT3, LIPID, TSH #### [facility] [address] [place] [address] Dr. Mildred Álvarez Protein [Mass/Vol] 6.9 g/dL Normal 6.4-8.2 [facility] [place] Comment on above: Performed By: #### C MP, T4, FT3, LIPID, TSH #### [facility] [address] [place] [address] Dr. Mildred Álvarez Sodium [Moles/Vol] 140 mmol/L Normal 136-145 [facility] [place] Comment on above: Performed By: #### C MP, T4, FT3, LIPID, TSH #### [facility] [address] [place] [address] Dr. Mildred Álvarez Urea nitrogen [Mass/Vol] 28.0 mg/dL Critically high 7.0-18.0 [facility] Comment on above: Performed By: #### C MP, T4, FT3, LIPID, TSH #### [facility] [address] [place] [address] Dr. Mildred Álvarez Urea nitrogen/Creatinine [Mass ratio] 26.9 mg/mg Normal [facility] Comment on above: Performed By: #### C MP, T4, FT3, LIPID, TSH #### [facility] [address] [place] [address] Dr. Mildred Álvarez T4on 09-09-2022 T4 [Mass/Vol] 5.10 ug/dL Normal 4.80-13.90 [facility] Comment on above: Performed By: #### C MP, T4, FT3, LIPID, TSH #### [facility] [address] [place] [address] Dr. Mildred Álvarez TSHon 09-09-2022 TSH 0.641 uIU/mL Normal 0.358-3.740 [facility] Comment on above: Performed By: #### C MP, T4, FT3, LIPID, TSH #### [facility] [address] [place] [address] Dr. Mildred Álvarez VITAMIN D 25 OHon 09-09-2022 VIT D 25-OH 45.3 ng/mL Normal [facility] Comment on above: Performed By: #### V ITAD ####[facility] [address] [place], [place] [address]OzBrendan Álvarez VIT D RANGES SEE BELOW Normal [facility] Comment on above: Result Comment: <20 ng/mL Vit D deficient 20 - <30 ng/mL Vit D insufficient 30 - 100 ng/mL Vit D sufficient >100 ng/mL Potential Toxicity Performed By: #### V ITAD ####[facility] [address] [place] [id number] Álvarez MG MAMM SCREEN 3D MIGUEL CADon 06-20-2022 MG MAMM SCREEN 3D MIGUEL CAD Patient: RACHEL OROZCO Exam Date: 06/20/2022 : 1945 Gender:F Ordering : DR BEN KRAFT . Admission #: [id number] Family : Order #: [id number] CLICK HERE TO VIEW EXAM RADIOLOGY REPORT [...] ovarian cancer at age 41. LOCATION: [facility] BREAST COMPOSITION: Scattered areas fibroglandular density. [...] Sunshine M.D. on 06/20/2022 at 12:49 Normal [facility] Encounters Encounter Date Encounter Type Care Provider Facility Start: 01-02-2024 ambulatory Jax TROY Facility :[facility] Start: 12-01-2023 ambulatory Jax WOODROW Facility:Dean Mahajan [place] Start: 10-26-2023 End: 10-26-[address] [facility] Start: 10-19-2023 Evaluation and management of inpatient BLANCHE WELLSCARLITO [facility] Start: 10-18-2023 Evaluation and management of inpatient ANNABELLA RYAN OWEN [facility] Start: 10-18-2023 Evaluation and management of inpatient SHERITAGRIFFINROMANA RAYMOND [facility] Start: 10-17-2023 End: 10-20-2023 Evaluation and management of inpatient BETTY ROBERT [facility] Start: 05-24-2023 ambulatory [facility] Start: 10-26-2022 End: 10-26-[address] BEN KRAFT Facility:[facility] Start: 09-12-2022 End: 09-12-[address] BEN KRAFT Facility:[facility] Start: 09-09-2022 End: 09-10-[address] BEN KRAFT Facility:[facility] Start: 06-20-2022 End: 06-21-[address] BEN KRAFT Facility:[facility] Start: 06-12-2019 End: 06-12-2019 Emergency department patient visit DENZEL OHARA Facility:[facility] Payers Date Payer Category Payer Medicare [id number] 1958 Unknown [id number] 1945 Unknown [id number] [id number] 1945 Unknown [id number] 2.16.84 [id number] 1945 Unknown [id number] 2.16.84 [id number] 1945 Unknown [id number] 2.16.84 [id number] 1945 Unknown [id number] 2.16.84 [id number] 1945 Unknown [id number] 2.16.8 [id number] Medicare [id number] Clinical Notes 05-24-2023 to 10-26-2023 Note Date & Type Note Facility 10-26-2023 Note Patient here for fol low [facility] for NSTEMI. Underwent heart cath on [...] All other systems reviewed and are negative. [facility] 10-26-2023 Note Cardiovascular Medic ine [facility] SUBJECTIVE No chief complaint on file. Rachel Orozco is a 78 y.o. female here for follow-up after her recent admission to [facility]. HPI Patient here for follow up [facility] for NSTEMI. Underwent heart cath on 10/18/2023 [...] is an 78 y.o. female admitted from [facility] where she presented with several days history of progressive shortness of breath retrosternal chest discomfort described by her as dull ache at times burning nonradiating associated for dyspnea Patient was recently discharged from [facility] after being admitted for RSV pneumonia since that time she has been having shortness of breath which gets worse with activity she denies any fever chills sinus trouble sore throat she denies any dizziness lightheadedness she feels tired she has history of atrial fibrillation and has been on Eliquis and metoprolol she denies any cardioversion in the past at [facility] she had 2 sets of troponin done [...] mouth in the (more content not included)... [facility] 10-20-2023 Note Hospital Medicine Discharge Summary Final Discharge Diagnosis: Chest pain Admission Diagnosis: Chest pain [R07.9] Hospital course: michoacano Orozco is an 78 y.o. female admitted from [facility] where she presented with several days history of progressive shortness of breath retrosternal chest discomfort described by her as dull ache at times burning nonradiating associated for dyspnea Patient was recently discharged from [facility] after being admitted for RSV pneumonia since that time she has been having shortness of breath which gets worse with activity she denies any fever chills sinus trouble sore throat she denies any dizziness lightheadedness she feels tired she has history of atrial fibrillation and has been on Eliquis and metoprolol she denies any cardioversion in the past at [facility] she had 2 sets of troponin done [...] out without esophagitis Dear Dr. Swapnil MD, [facility] is advised to follow up with you within 1-2 weeks. Follow-up with: Cardiology Scheduled appointments: Future Appointments Date Time Provider Department Center 10/26/2023 11:40 AM Saadia Myles NP [facility] ([facility]3] Hos Your medication list START taking these [...] Medications These medications were sent to [facility] - [address] [place] [address] [address] [facility] [place] [address], [facility] [address] aspirin 81 mg EC tablet atorvastatin 80 [...] AUTO 10*3/uL 239 (more content not included)... [facility] 10-20-2023 Note Physical Therapy Spoke with [...] and sign off. Chris Obando PT, DPT [facility] 10-20-2023 Note Patient requires 2 L nc with ambulation to maintain O2 greater than 92% due to her diastolic heart failure. -Danielle Myles, KOBI [facility] 10-20-2023 Note 10/20/23 1345 Home Oxygen Therapy Evaluation Pulse Oximetry on room air at Rest 94 Pulse Ox on room air while walking 88 Pulse Ox on O2 with nasal cannula while walking 95 Patient Qualification for home oxygen Qualifies $ Pulse Oximetry Multiple (home oxygen eval) [facility] 10-20-2023 Note ------ Attestation signed by [...] 86 QT Interval 458 QTC CALCULATION(BAZETT) 545 R-[place] 107 T Wave [place] 238 Impression Atrial fibrillation with premature ventricular [...] Bubble Study Result Date: 10/18/2023 1 1 [facility] Heart Station [address] [place] [address] [phone] (fax) Echocardiogram-[facility] Name: RACHEL OROZCO Study Date: 10/18/2023 08:28 AM B/P: 124 mmHg/69 mmHg HR: 72 bpm Date of : 1945 Location: [facility] Height: 63 in. Age: 78 year(s) Patient [...] cm?? Aortic V (more content not included)... [facility] 10-20-2023 Note Occupational Therapy Occupational Therapy [...] With: Alone Home Adaptive Equipment: (sc, gb, [facility]) Home Layout: One level Home Access: Stairs to enter with rails (2) Bathroom Shower/Tub: Walk-in shower Prior Level of Function Prior Function Level of [place]: Independent with ADLs and functional transfers, Independent [...] Occupational Therapy) Active Problems Not on file [facility] 10-19-2023 Note 10/19/23 1147 Admission Assessment [...] Yes Does the patient have a case mgr assigned to them through their insurance? No [...] since she lives alone and is concerned [facility] 10-19-2023 Note Hospital Medicine Daily Progress Note - 10/19/2023 6:04 PM; Room: [address] [place] [address] Admission: 10/17/2023 7:37 PM; Length of stay: 2 days THE HOSPITALIST TEAM PREFERS TO USE [employer] CHAT FOR COMMUNICATION 7AM-7PM. IF I DO NOT RESPOND WITHIN 15 MINUTES, PLEASE PAGE ME/CALL THROUGH THE AS400 DEVELOPER. FROM 7PM-7AM, PLEASE PAGE [phone](COVR) Code Status: Full Code Barriers to Discharge: [...] Active Problems: NSTEMI (non-ST elevated myocardial infarction) ([facility]) Assessment and Plan NSTEMI Recent [...] FREET4 0.86 10/18/2023 No results found for: PYPEWJTF22 , IRON , TIBC , C3 , [...] 07:59, QRS axis (more content not included)... [facility] 10-19-2023 Note [facility] CARDIOLOGY INPAT IENT [...] 86 QT Interval 458 QTC CALCULATION(BAZETT) 545 R-[place] 107 T Wave [place] 238 Impression Atrial fibrillation with premature ventricular or aberrantly conducted complexes Right axis (more content not included)... [facility] 10-18-2023 Note Hospital Medicine Daily Progress Note - 10/18/2023 4:57 PM; Room: [address] [place] [address] Admission: 10/17/2023 7:37 PM; Length of stay: 1 days THE HOSPITALIST TEAM PREFERS TO USE [employer] FOR COMMUNICATION 7AM-7PM. IF I DO NOT RESPOND WITHIN 15 MINUTES, PLEASE PAGE ME/CALL THROUGH THE AS400 DEVELOPER. FROM 7PM-7AM, PLEASE PAGE [phone](COVR) Code Status: Full Code Barriers to Discharge: [...] Active Problems: NSTEMI (non-ST elevated myocardial infarction) ([facility]) Assessment and Plan NSTEMI Recent [...] FREET4 0.86 10/18/2023 No results found for: [id number] , IRON , TIBC , C3 , [...] axis Pulmonary dis (more content not included)... [facility] 10-18-2023 Note Patient: Rachel Orozco Procedure Information Date/Time: 10/18/231729 Procedures: Coronary angiography Right heart cath Location: [facility] MANUAL CONTROL AUGER PRESS OPERATOR 3 / [facility] (Cath) Providers: Antony Henson [...] Plan discussed with attending. Additional Equipment Requests [facility] 10-17-2023 Note Hospital Medicine History and Physical 10/17/2023 8:17 PM THE HOSPITALIST TEAM PREFERS TO USE [employer] CHAT FOR COMMUNICATION 7AM-7PM. IF I DO NOT RESPOND WITHIN 15 MINUTES, PLEASE PAGE ME/CALL THROUGH THE AS400 DEVELOPER. FROM 7PM-7AM, PLEASE PAGE [phone](COVR) Chief Complaint No chief complaint on file. History of Present Illness Rachel Orozco is an 78 y.o. female admitted from [facility] where she presented with several days history of progressive shortness of breath retrosternal chest discomfort described by her as dull ache at times burning nonradiating associated for dyspnea Patient was recently discharged from [facility] after being admitted for RSV pneumonia since that time she has been having shortness of breath which gets worse with activity she denies any fever chills sinus trouble sore throat she denies any dizziness lightheadedness she feels tired she has history of atrial fibrillation and has been on Eliquis and metoprolol she denies any cardioversion in the past at [facility] she had 2 sets of troponin done [...] Noted Chest pain 10/17/2023 Diastolic heart failure ([facility]) 05/19/2022 Atrial fibrillation ([facility]) 12/02/2019 Dyspnea on exertion 06/21/2018 Bradycardia 06/21/2018 Assessment and Plan Non-ST MARTIN hide discussed with cardiology will repeat troponin if they are 5 or above patient would need to go to [facility] we will continue beta-reanna statin asa IV [...] this hospital stay by a member of [facility]. Past Medical History No past [...] mouth in t (more content not included)... [facility] 05-24-2023 Note Cardiology Clinic No te [...] 1 year (around 05/24/2024). Keaton Mims APRN-KOBI [facility] Cardiovascular Medicine [facility] Summary Purpose Family History No Family History Records FoundNo Family History Records FoundNo Family History Records FoundNo Family History Records Found Advance Directives No Advanced Directives Records FoundNo Advanced Directives Records FoundNo Advanced Directives Records FoundNo Advanced Directives Records Found Additional Source Comments INFORMATION SOURCE (unrecogn ized section and content) DATE CREATED AUTHOR 12/09/2019 [facility] DATE CREATED AUTHOR AUTHOR'S ORGANIZ ATION 11/02/2022 [facility] DATE CREATED AUTHOR AUTHOR'S ORGANIZ ATION 11/05/2023 [facility] DATE CREATED AUTHOR AUTHOR'S ORGANIZ ATION 12/06/2023 [facility] FOR RECORDS PERTAINING TO PATIENTS WHO [...] BE BASED ON THE PRIMARY CLINICAL RECORDS. [employer] provides no warranty or guarantee of the accuracy or completeness of information in this document.
--- NOTE | 2023-12-15 20:10 | CT_ITS ---
The [address] [address] Patient Name: ABDON OROZCO MRN: [id number] date: 1945 Sex: F Assigned Patient Location: ER Current Patient Location: ER Accession/Order Number: [id number] Exam Date: 12/15/2023 21:00 Report Date: 12/15/2023 21:33 At the request of: HAWA LAURA Procedure: CT abdomen pelvis w con CT ABDOMEN/PELVIS WITH IV CONTRAST. INDICATION: Nausea and vomiting. COMPARISON: There are no other studies available for comparison. TECHNIQUE: Contiguous axial images were obtained from the lung bases to the pelvic floor following the intravenous administration of contrast. Coronal and sagittal reformations are provided. FINDINGS: LOWER LUNGS: Clear. LIVER/BILIARY TREE: No mass. No intrahepatic ductal dilatation. GALLBLADDER: No significant gallbladder wall thickening. Questionable cholelithiasis. CBD: Normal CBD. SPLEEN: Normal in size. PANCREAS: No acute findings. No peripancreatic fluid or inflammation. No pancreatic duct dilatation. No discrete mass. ADRENALS: Normal. KIDNEYS: No hydronephrosis. No radiopaque calculus. STOMACH AND BOWEL: Stomach is unremarkable. No dilated bowel loops. There is mild diffuse colonic thickening. APPENDIX: Not visualized PERITONEAL CAVITY: There is mild pericolonic stranding. . ABDOMINAL WALL: No subcutaneous stranding. No subcutaneous fluid collection. LYMPH NODES: No mesenteric or retroperitoneal lymphadenopathy by CT criteria. ABDOMINAL AORTA: No aneurysm. PELVIS: Decompressed bladder. MUSCULOSKELETAL: No acute osseous abnormality. CT/CT abdomen pelvis w con IMPRESSION: Findings are suggestive of diffuse colitis.. Electronically authenticated by: KALIN CAMPOS Date: 12/15/2023 21:33
--- NOTE | 2023-12-15 20:10 | XR_ITS ---
The [place] [id number] Patient Name: ABDON OROZCO MRN: [id number] date: 1945 Sex: F Assigned Patient Location: ER Current Patient Location: ED.MAIN Accession/Order Number: [id number] Exam Date: 12/15/2023 21:00 Report Date: 12/15/2023 21:29 At the request of: HAWA LAURA Procedure: XR chest 1V EXAM: XR chest 1V HISTORY: Nausea and vomiting COMPARISON: 10-17-2023 FINDINGS: Frontal radiograph of the chest was obtained. There are mild bibasilar opacities, improved from prior exam. No pleural effusion. No pneumothorax. Cardiac shadow is enlarged. Degenerative changes to the spine. Surgical anchor in the right humeral head. XR/XR chest 1V IMPRESSION: Mild bibasilar opacities, improved from prior exam. This could represent atelectasis, scarring, or infectious process. Electronically authenticated by: EDVIN BEY Date: 12/15/2023 21:29
--- NOTE | 2023-12-15 20:10 | ECG_ITS ---
The [facility] Test Date: 2023-12-15 Pat Name: ABDON OROZCO Department: Room: - Gender: Female Benefit Specialist: : 1945 Requested By: BEN MATHUR Order Number: [id number] Reading MD: BEN MATHUR Measurements Intervals Rayle Rate: 88 P: -10139 WI: -74112 QRS: 76 QRSD: 96 T: 57 QT: 360 QTc: 406 Interpretive Statements 1210 Atrial fibrillation 8102 Low QRS voltage in chest leads 9140 abnormal rhythm ECG Compared to ECG 10/17/2023 11:52:48 Myocardial infarct finding no longer present Electronically Signed On 12-18-2023 6:43:49 EST by BEN MATHUR
[2023-12-15 20:41] LABS: Basophils Absolute Auto 0.1 10^3/uL (0.0-0.1); Basophils Percent Auto 0.7 % (0.2-2.0); Eosinophils Absolute Auto 0.1 10^3/uL (0.0-0.7); Eosinophils Percent Auto 1.3 % (0.9-7.0); Hematocrit 44.2 % (36.0-48.0); Hemoglobin 13.6 g/dL (12.0-16.0); Immature Granulocytes Abs Auto 0.05 10^3/uL (0.00-0.03); Immature Granulocytes Pct Auto 0.7 % (0.0-0.5); Lymphocytes Absolute Auto 2.1 10^3/uL (1.2-3.8); Lymphocytes Percent Auto 28.3 % (20.5-60.0); Mean Corpuscular HGB Conc 30.8 g/dL (29.9-35.2); Mean Corpuscular Hemoglobin 30.8 pg (26.7-34.0); Mean Platelet Volume 11.9 fL (9.5-13.5); Monocytes Absolute Auto 0.7 10^3/uL (0.3-0.8); Monocytes Percent Auto 9.5 % (1.7-12.0); Neutrophils Absolute Auto 4.5 10^3/uL (1.4-6.5); Neutrophils Percent Auto 59.5 % (43.0-75.0); Platelet Count 315 10^3/uL (150-450); Red Blood Count 4.42 10^6/uL (4.20-5.40); Red Cell Distribution Width 12.9 % (11.0-15.0); White Blood Count 7.6 10^3/uL (4.0-11.0)
--- NOTE | 2023-12-15 20:45 | ED_ITS ---
HPI - General Adult General Chief complaint: Nausea/Vomiting/Diarrhea Stated complaint: BELLY CRAMPS, NAUSEA Time Seen by Provider: 12/15/23 20:10 Source: patient Mode of arrival: Wheelchair Limitations: no limitations History of Present Illness HPI narrative: Patient is a 78-year-old female who presents to the emergency department for the evaluation of nausea, abdominal cramping and dry heaving. Patient states she had a heart attack 2 months ago and has been having dry heaving and losing weight ever since. She states that she had been constipated over the last several days so she took laxatives 2 days in a row and is now having multiple episodes of loose stool. She denies fevers or upper respiratory symptoms. She complains of cramping throughout the low abdomen which she is attributing to the laxatives. She denies any other upper respiratory symptoms, chest pain, shortness of breath. She is currently anticoagulated for history of A-fib. She had outpatient labs done yesterday from her PCP office, family member at bedside expresses frustration that the patient was told she was dehydrated but they did not keep her . She states she has an appointment at the end of this month for colonoscopy with general surgery. Related Data Home Medications Medication Instructions Recorded Confirmed albuterol sulfate 90 mcg/actuation 2 puff inhalation Q8H PRN 10/14/23 10/17/23 aerosol inhaler (Ventolin HFA) shortness of breath or wheezing apixaban 5 mg tablet (Eliquis) 5 mg PO Q12H 10/14/23 10/17/23 atorvastatin 40 mg tablet 40 mg PO DAILY 10/14/23 10/17/23 diclofenac sodium 75 mg 75 mg PO DAILY 10/14/23 10/17/23 tablet,delayed release furosemide 40 mg tablet 40 mg PO DAILY 10/14/23 10/17/23 glimepiride 2 mg tablet 2 mg PO BID 10/14/23 10/17/23 levothyroxine 88 mcg tablet 88 mcg PO DAILY 10/14/23 10/17/23 liothyronine 25 mcg tablet 25 mcg PO DAILY 10/14/23 10/17/23 losartan 50 mg tablet 50 mg PO DAILY 10/14/23 10/17/23 metoprolol succinate 25 mg 12.5 mg PO DAILY 10/14/23 10/17/23 tablet,extended release 24 hr Previous Rx's Medication Instructions Recorded levofloxacin 750 mg tablet 750 mg PO DAILY 7 days #7 tabs 10/16/23 prednisone 10 mg tablet 40 mg (4 x 10 mg) PO DAILY #32 tabs 10/16/23 Allergies Allergy/AdvReac Type Severity Reaction Status Date / Time No Known Drug Allergies Allergy Verified 12/15/23 20:09 Review of Systems ROS Constitutional Denies: fever Ears, nose, mouth, and throat Denies: throat pain or nasal congestion Cardiovascular Denies: chest pain Respiratory Denies: shortness of breath or cough Gastrointestinal Reports: abdominal pain, nausea, vomiting, diarrhea and constipation Genitourinary Denies: painful urination Musculoskeletal Denies: back pain Integumentary/Breast Denies: rash Neurological Denies: headache Endocrine Denies: excessive urination Hematologic/Lymphatic Reports: easy bruising and easy bleeding PFSH [facility] Medical History (Updated 12/15/23 @ 21:29 by KEERTHI Story) RSV bronchitis ?J20.5 - Acute bronchitis due to respiratory syncytial virus (ICD-10) Atrial fibrillation ?I48.91 - Unspecified atrial fibrillation (ICD-10) Hypertension ?I10 - Essential (primary) hypertension (ICD-10) Type 2 diabetes mellitus ?E11.9 - Type 2 diabetes mellitus without complications (ICD-10) Acute exacerbation of chronic obstructive pulmonary disease ?J44.1 - Chronic obstructive pulmonary disease with (acute) exacerbation (ICD-10) Surgical History History of arthroplasty of right shoulder ?Z96.611 - Presence of right artificial shoulder joint (ICD-10) History of knee replacement ?Z96.659 - Presence of unspecified artificial knee joint (ICD-10) H/O: hysterectomy ?Z90.710 - Acquired absence of both cervix and uterus (ICD-10) Social History Within the past year, how often did you have a drink containing alcohol: 2-3 times a week Within the past year, how many standard drinks containing alcohol did you have on a typical day: 1 or 2 Within the past year, how often did you have six or more drinks on one occasion: less than monthly Total score: 1 Score interpretation: A score of 3 or more indicates drinking is likely to affect patient's safety. Smoking status: Former smoker Non-prescribed substance use: denies use Previous occupational history: [employer] Highest level of school completed/degree received: high school graduate Exam Narrative Exam Narrative: Gen.: Awake, alert, in no distress Head: Normocephalic, atraumatic ENT: Moist mucous membranes Respiratory: No respiratory distress, lungs clear bilaterally Cardio: Irregularly irregular Gastrointestinal: Abdomen is soft, nondistended and nontender to palpation Extremities: Moves extremities equally Psych: Normal mood and affect Neuro: No focal neuro deficit Skin: Warm, dry, intact Constitutional Vital Signs, click to edit/add: Last Vital Signs Temp 97.6 F 12/15/23 20:06 Pulse 87 12/15/23 21:20 Resp 20 12/15/23 21:20 BP 109/62 12/15/23 20:34 Pulse Ox 98 12/15/23 20:06 O2 Del Method Room Air 12/15/23 20:06 Course Vital Signs Vital signs: Vital Signs Temperature 97.6 F 12/15/23 20:06 Pulse Rate 95 H 12/15/23 20:06 Respiratory Rate 18 12/15/23 20:06 Blood Pressure 118/61 12/15/23 20:06 Pulse Oximetry 98 12/15/23 20:06 Oxygen Delivery Method Room Air 12/15/23 20:06 Temperature 97.6 F 12/15/23 20:06 Pulse Rate 87 12/15/23 21:20 Respiratory Rate 20 12/15/23 21:20 Blood Pressure 109/62 12/15/23 20:34 Pulse Oximetry 98 12/15/23 20:06 Oxygen Delivery Method Room Air 12/15/23 20:06 Medical Decision Making [facility] Narrative Medical decision making narrative: EKG, labs, IV established. Patient sent for chest x-ray and CT of the abdomen and pelvis with IV contrast. The remainder of lab studies, urine specimen and imaging results are pending at this time and case is turned over to attending physician for disposition. Medical Records Medical records reviewed: Yes I reviewed the patient's medical records Lab Data Lab results reviewed: Yes I reviewed the patient's lab results Labs: Lab Results 12/15/23 Range/Units 20:26 WBC 7.6 (4.0-11.0) 10^3/uL RBC 4.42 (4.20-5.40) 10^6/uL Hgb 13.6 (12.0-16.0) g/dL Hct 44.2 (36.0-48.0) % MCV 100.0 H (81.0-99.0) fL MCH 30.8 (26.7-34.0) pg MCHC 30.8 (29.9-35.2) g/dL RDW 12.9 (11.0-15.0) % Plt Count 315 (150-450) 10^3/uL MPV 11.9 (9.5-13.5) fL Neut % (Auto) 59.5 (43.0-75.0) % Lymph % (Auto) 28.3 (20.5-60.0) % [place] % (Auto) 9.5 (1.7-12.0) % Eos % (Auto) 1.3 (0.9-7.0) % Baso % (Auto) 0.7 (0.2-2.0) % Neut # (Auto) 4.5 (1.4-6.5) 10^3/uL Lymph # (Auto) 2.1 (1.2-3.8) 10^3/uL [place] # (Auto) 0.7 (0.3-0.8) 10^3/uL Eos # (Auto) 0.1 (0.0-0.7) 10^3/uL Baso # (Auto) 0.1 (0.0-0.1) 10^3/uL Abs Immat Gran (auto) 0.05 H (0.00-0.03) 10^3/uL Imm/Tot Granulo (auto) 0.7 H (0.0-0.5) % Sodium 138 (136-145) mmol/L Potassium 4.7 (3.5-5.1) mmol/L Chloride 100 (98-107) mmol/L Carbon Dioxide 24.4 (21.0-32.0) mmol/L Anion Gap 18.3 BUN 56.0 H (7.0-18.0) mg/dL Creatinine 2.48 H (0.55-1.02) mg/dL Est GFR ( Amer) 23 L (>=60) Est GFR (Non-Af Amer) 19 L (>=60) BUN/Creatinine Ratio 22.6 Glucose 178 H (74-106) mg/dL Lactate 2.3 H* (0.4-2.0) mmol/L Calcium 10.4 H (8.5-10.1) mg/dL Total Bilirubin 0.8 (0.2-1.0) mg/dL AST 180 H (15-37) U/L ALT 156 H (14-59) U/L Alkaline Phosphatase 78 (46-116) U/L Troponin I High Sens 16.7 (4.0-51.3) pg/mL Total Protein 7.8 (6.4-8.2) g/dL Albumin 4.1 (3.4-5.0) g/dL Globulin 3.7 g/dL Albumin/Globulin Ratio 1.1 Lipase 57.0 (16.0-77.0) U/L ECG Data Attestation: I personally reviewed and interpreted this ECG as follows: (Atrial fibrillation at a rate of 88, no acute ST elevation or ectopy. EKG reviewed by attending physician) Discharge Plan Discharge Chief Complaint: Nausea/Vomiting/Diarrhea Clinical Impression: Dehydration Patient Disposition: Still a Patient Prescriptions / Home Meds: No Action albuterol sulfate [Ventolin HFA] 90 mcg/actuation HFA aerosol inhaler 2 puff INHALATION Q8H PRN (Reason: shortness of breath or wheezing) Eliquis 5 mg tablet 5 mg PO Q12H atorvastatin 40 mg tablet 40 mg PO DAILY diclofenac sodium 75 mg tablet,delayed release (DR/EC) 75 mg PO DAILY glimepiride 2 mg tablet 2 mg PO BID furosemide 40 mg tablet 40 mg PO DAILY levothyroxine 88 mcg tablet 88 mcg PO DAILY liothyronine 25 mcg tablet 25 mcg PO DAILY losartan 50 mg tablet 50 mg PO DAILY metoprolol succinate 25 mg tablet extended release 24 hr 12.5 mg PO DAILY prednisone 10 mg tablet 40 mg PO DAILY Qty: 32 0RF Rx Instructions: 4/day for 3 days, 3/day for 3 days, 2/day for 3 days, 1/day for 3 days, 1/2 /day for 4 days levofloxacin 750 mg tablet 750 mg PO DAILY 7 Days Qty: 7 0RF Stand Alone Forms: Portal Instructions Referrals: Toni Kraft MD [Primary Care Provider] - 1 week
[2023-12-15] MEDS: 0.9 % SODIUM CHLORIDE 1,000 ML 999 ML IV (20:48)
[2023-12-15] MEDS: ONDANSETRON PF 4 MG/2 ML VIAL IV (20:49)
[2023-12-15] MEDS: HYOSCYAMINE SULFATE 0.125 MG TAB.SUBL SL (20:54)
[2023-12-15 20:55] LABS: Alanine Aminotransferase 156 U/L (14-59); Albumin Globulin Ratio 1.1; Albumin Level 4.1 g/dL (3.4-5.0); Alkaline Phosphatase 78 U/L (46-116); Anion Gap 18.3; Aspartate Amino Transferase 180 U/L (15-37); BUN Creatinine Ratio 22.6; Bilirubin Total 0.8 mg/dL (0.2-1.0); Calcium 10.4 mg/dL (8.5-10.1); Carbon Dioxide 24.4 mmol/L (21.0-32.0); Chloride 100 mmol/L (98-107); Estimated GFR (African America 23 (>=60); Estimated GFR (Non-African Ame 19 (>=60); Globulin 3.7 g/dL; Glucose 178 mg/dL (74-106); Potassium 4.7 mmol/L (3.5-5.1); Sodium 138 mmol/L (136-145); Total Protein 7.8 g/dL (6.4-8.2); Troponin I High Sensitivity 16.7 pg/mL (4.0-51.3)
[2023-12-15 21:07] LABS: Lactate/Lactic Acid 2.3 mmol/L (0.4-2.0)
[2023-12-15 21:27] LABS: INR 1.04
[2023-12-15 22:14] LABS: Bilirubin Urine NEGATIVE (NEGATIVE); Blood Urine NEGATIVE (NEGATIVE); Clarity Urine CLEAR (CLEAR); Color Urine LT. YELLOW (YELLOW); Glucose Urine UA 250 mg/dL (NEGATIVE); Ketones Urine NEGATIVE (NEGATIVE); Leukocyte Esterase Urine NEGATIVE (NEGATIVE); Nitrite Urine NEGATIVE (NEGATIVE); Protein Urine NEGATIVE (NEG/TRACE); Specific Gravity Urine <=1.005 (1.005-1.025); Urobilinogen Urine 0.2 EU/dL (0.2-1.0)
[2023-12-15 22:15] LABS: Urine Microscopic Indicated NO
[2023-12-15 23:44] LABS: Lactate/Lactic Acid 1.1 mmol/L (0.4-2.0)
--- OUTSIDE RECORDS SUMMARY | 2023-12-16 00:05 | XMS_ITS | CCD ---
Author Name Unknown Address [address] [place] [address] Organization [facility] Care Team Providers Care Accounts Receivable Coordinator Name Role Phone DENZEL OHARA Admitting Unavailable [...] (1 source) Amino Acids Drug Allergy [facility] Repository (1 source) Sulfonamides (Antibiotic) Drug allergy (disorder) 6 [facility] Repository (1 source) Sulfonamides (Antibiotic); 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: [SULFA (SULFONAMIDE ANTIBIOTICS)] Propensity to adverse reactions to drug (disorder) [address] [facility] Repository Problems Active Problems Problem Classification [...] Range Facility Physician Referralon 024 Physician Referral [id number] 10 [id number]#1.0 0TIFF Normal [facility] Physician Referral [id number] 06 [id number]#[id number] TIFF Normal [facility] Follow-Upon 10-26-2023 Follow-Up [id number] Rachel Orozco 1945 F Date Provider Department Center 10/26/2023 SAADIA TELLEZ CARD [facility] No family history on file Level of Service:53003 [place] OFFICE/OUTPATIENT ESTABLISHED MOD MDM 30 MIN Reason for Visit and Comments: Hospital Follow-up [832] Normal [facility] BASIC METABOLIC PANELon 10-06 Anion gap [Moles/Vol] 9 mmol/L Normal 7-[address] [facility] Comment on above: Performed By: #### L [id number] ####[facility] (BEAKER)[address] [place] [address] Calcium [Mass/Vol] 9.2 mg/dL Normal 8.6-10.3 [facility] Comment on above: Performed By: #### L [id number] ####[facility] (BEAKER)[address] [place] [address] Chloride [Moles/Vol] 100 mmol/L Normal 98-107 [facility] Comment on above: Performed By: #### L [id number] ####[facility] (BEAKER)[address] [place] [address] CO2 [Moles/Vol] 35 mmol/L High 21-31 [facility] Comment on above: Performed By: #### L [id number] ####[facility] ([facility])[address] [place] [address] Creatinine [Mass/Vol] 1.07 mg/dL Normal 0.60-1.[address] [facility] Comment on above: Performed By: #### L [id number] ####[facility] ([facility])[address] [place] [address] GLOMERULAR FILTRATION RATE ML/MIN/1.73 SQ M.PREDICTED 53.5 mL/min/1.73m*2 Low >60.0 [facility] Comment on above: Result Comment: [facility]???s estimated glomerular filtration rate (eGFR) will [...] of individuals. Performed By: #### L [id number] ####[facility] ([facility])[address] [place] [address] Glucose [Mass/Vol] 100 mg/dL Normal 70-100 [facility] Comment on above: Performed By: #### L [id number] ####[facility] ([facility])[address] [place] [address] Potassium [Moles/Vol] 3.7 mmol/L Normal 3.5-5.[address] [facility] Comment on above: Performed By: #### L [id number] ####[facility] (BEAKER)[address] [place] [address] Sodium [Moles/Vol] 140 mmol/L Normal 136-145 [facility] Comment on above: Performed By: #### L [id number] ####[facility] (BEAKER)[address] [place] [address] Urea nitrogen [Mass/Vol] 43 mg/dL High 7-[address] [facility] Comment on above: Performed By: #### L [id number] ####[facility] (BEAKER)[address] [place] [address] UREA NITROGEN/CREATININE (MASS RATIO) IN SER/PLAS 40.[address] [facility] Comment on above: Performed By: #### L [id number] ####[facility] (BEAKER)[address] [place] [address] CBCon 10-20-2023 Erythrocyte distribution width (RBC) [Ratio] 13.5 % Normal 11.5-15.[address] [facility] Comment on above: Performed By: #### L [id number] ####[facility] (BEAKER)[address] [place] [address] ERYTHROCYTE MEAN CORPUSCULAR HEMOGLOBIN CONCENTRATION (G/DL) BY AUTOMATED 32.8 g/dL Normal 32.0-35.[address] [facility] Comment on above: Performed By: #### L [id number] ####[facility] (BEAKER)[address] [place] [address] Hematocrit (Bld) [Volume fraction] 36.0 % Normal 36.0-48.[address] [facility] Comment on above: Performed By: #### L [id number] ####[facility] (BEAKER)[address] [place] [address] Hemoglobin (Bld) [Mass/Vol] 11.8 g/dL Low 12.0-15.[address] [facility] Comment on above: Performed By: #### L [id number] ####[facility] (BEAKER)[address] [place] [address] MCH (RBC) [Entitic mass] 31.8 pg Normal 27.0-33.[address] [facility] Comment on above: Performed By: #### L [id number] ####[facility] ([facility])[address] [place] [address] MCV (RBC) [Entitic vol] 97.0 fL Normal 82.0-98.[address] [facility] Comment on above: Performed By: #### L [id number] ####[facility] ([facility])[address] [place] [address] PLATELETS (10*3/UL) IN BLOOD AUTOMATED COUNT 239 10*3/uL Normal 150-[address] [facility] Comment on above: Performed By: #### L [id number] ####[facility] ([facility])[address] [place] [address] RBC (Bld) [#/Vol] 3.71 10*6/uL Low 3.80-5.00 [facility] Comment on above: Performed By: #### L [id number] ####[facility] ([facility])[address] [place] [address] WBC (Bld) [#/Vol] 10.06 10*3/uL Normal 4.00-10.60 [facility] Comment on above: Performed By: #### L [id number] ####[facility] ([facility])[address] [place] [address] POCT GLUCOSE METER UNSOLICIT ED RESULTSon 10-20-2023 Glucose [Mass/Vol] 124 mg/dL High 70-105 [facility] Comment on above: Order Comment: Waive d Testing in the ED is performed under the ED CLIA certificate #[id number]. Result Comment: [email or web address] Performed By: #### L [id number] ####[facility] ([facility])[address] [place] [address] Glucose [Mass/Vol] 96 mg/dL Normal 70-105 [facility] Comment on above: Order Comment: Waive d Testing in the ED is performed under the ED CLIA certificate #[id number]. Result Comment: [email or web address] Performed By: #### L [id number] ####[facility] ([facility])[address] [place] [address] 30on 10-19-2023 30 The patient is Moderately [...] dysrhythmias or at baseline Outcome: Progressing Normal [facility] 30 Daily Case Managemen t Update [...] PT? Answer: discharge planning 10/19/[address] [facility] 30 Problem: Pain - Adul t [...] and behaviors that affect risk of falls [place] fall precautions as indicated by assessment Educate [...] room to hallway door 3x daily Normal [facility] 30 The patient is Moderately Stable [...] dysrhythmias or at baseline Outcome: Progressing Normal [facility] BASIC METABOLIC PANELon 12- Anion gap [Moles/Vol] 12 mmol/L Normal 7-[address] [facility] Comment on above: Performed By: #### L [id number] #### [facility] (BEAKER) [address] [place] [address] Calcium [Mass/Vol] 8.7 mg/dL Normal 8.6-10.3 [facility] Comment on above: Performed By: #### L [id number] #### [facility] (BEAKER) [address] [place] [address] Chloride [Moles/Vol] 99 mmol/L Normal 98-107 [facility] Comment on above: Performed By: #### L [id number] #### [facility] ([facility]) [address] [place] [address] CO2 [Moles/Vol] 30 mmol/L Normal 21-31 [facility] Comment on above: Performed By: #### L [id number] #### [facility] ([facility]) [address] [place] [address] Creatinine [Mass/Vol] 1.12 mg/dL Normal 0.60-1.[address] [facility] Comment on above: Performed By: #### L [id number] #### [facility] ([facility]) [address] [place] [address] GLOMERULAR FILTRATION RATE ML/MIN/1.73 SQ M.PREDICTED 50.6 mL/min/1.73m*2 Low >60.0 [facility] Comment on above: Result Comment: [facility]???s estimated glomerular filtration rate (eGFR) will [...] individuals. Performed By: #### L [id number] #### [facility] ([facility]) [address] [place] [address] Glucose [Mass/Vol] 243 mg/dL High 70-100 [facility] Comment on above: Performed By: #### L [id number] #### [facility] ([facility]) [address] [place] [address] Potassium [Moles/Vol] 3.3 mmol/L Low 3.5-5.[address] [facility] Comment on above: Performed By: #### L [id number] #### [facility] ([facility]) [address] [place] [address] Sodium [Moles/Vol] 138 mmol/L Normal 136-145 [facility] Comment on above: Performed By: #### L [id number] #### [facility] ([facility]) [address] [place] [address] Urea nitrogen [Mass/Vol] 40 mg/dL High 7-[address] [facility] Comment on above: Performed By: #### L [id number] #### [facility] ([facility]) [address] [place] [address] UREA NITROGEN/CREATININE (MASS RATIO) IN SER/PLAS 35.[address] [facility] Comment on above: Performed By: #### L [id number] #### [facility] ([facility]) [address] [place] [address] MAGNESIUMon 10-19-2023 Magnesium [Mass/Vol] 1.6 mg/dL Low 1.9-2.7 [facility] Comment on above: Performed By: #### L [id number] #### [facility] ([facility]) [address] [place] [address] PHOSPHORUSon 10-19-2023 Magnesium [Mass/Vol] 3.3 mg/dL Normal 2.5-5.0 [facility] Comment on above: Performed By: #### L [id number] #### [facility] ([facility]) [address] [place] [address] POCT GLUCOSE METER UNSOLICIT ED RESULTSon 10-19-2023 Glucose [Mass/Vol] 252 mg/dL High 70-105 [facility] Comment on above: Order Comment: Waive d Testing in the ED is performed under the ED CLIA certificate #[id number]. Result Comment: [email or web address] in Performed By: #### L [id number] ####[facility] ([facility])[address] [place] [address] Glucose [Mass/Vol] 137 mg/dL High 70-105 [facility] Comment on above: Order Comment: Waive d Testing in the ED is performed under the ED CLIA certificate #[id number]. Result Comment: [email or web address] Performed By: #### L [id number] ####[facility] ([facility])[address] [place] [address] Glucose [Mass/Vol] 203 mg/dL High 70-105 [facility] Comment on above: Order Comment: Waive d Testing in the ED is performed under the ED CLIA certificate #[id number]. Result Comment: [email or web address] Performed By: #### L [id number] ####[facility] ([facility])[address] [place] [address] Glucose [Mass/Vol] 162 mg/dL High 70-105 [facility] Comment on above: Order Comment: Waive d Testing in the ED is performed under the ED CLIA certificate #[id number]. Result Comment: [email or web address] Performed By: #### L [id number] #### [facility] ([facility]) [address] [place] [address] TROPONIN Ion 10-19-2023 Troponin I.cardiac [Mass/Vol] 3.09 ng/mL Critically high 0.00-0.[address] [facility] Comment on above: Result Comment: [place] EVIOUS CRITICAL RESULT Previous result verified on 10/18/2023 0912 on specimen/case [id number] called with component Troponin I for procedure Troponin I with value 3.51 ng/mL. Performed By: #### L [id number] #### [facility] ([facility]) [address] [place] [address] 30on 10-18-2023 30 Daily Case Managemen t [...] PT Recommendations: OT Recommendations: New Consults: Normal [facility] 30 Problem: Pain - Adul t Goal: Verbalizes/displays adequate comfort level or baseline comfort level Outcome: Progressing Problem: Safety - Adult Goal: Free from fall injury Outcome: Progressing Flowsheets (Taken 10/18/2023799) Free from fall injury: Assess patient frequently for physical needs [place] fall precautions as indicated by assessment Identify [...] include receive cardiac cath without complications Normal [facility] 30 Problem: Pain - Adul t [...] the shift include stable vitals, safety Normal [facility] APTTon 10-18-2023 ACTIVATED PARTIAL THROMBOPLASTIN TIME IN PPP BY COAGULATION ASSAY 140.1 Seconds Critically high 25.0-35.[address] [facility] Comment on above: Result Comment: Clin ical significance of the APTT is questionable in the presence of heparin. Performed By: #### L [id number] #### [facility] (BEAKER) [address] [place] [address] ACTIVATED PARTIAL THROMBOPLASTIN TIME IN PPP BY COAGULATION ASSAY 174.6 Seconds Critically high 25.0-35.[address] [facility] Comment on above: Order Comment: Check aPTT every 6 hours while on heparin infusion, or per protocol. Result Comment: Clin ical significance of the APTT is questionable in the presence of heparin. Performed By: #### L [id number] #### [facility] (BEAKER) [address] [place] [address] B-TYPE NATRIURETIC PEPTIDEon 10-18-2023 Natriuretic peptide B (Bld) [Mass/Vol] 1127 pg/mL High 0-[address] [facility] Comment on above: Performed By: #### L [id number] #### [facility] ([facility]) [address] [place] [address] CBCon 10-18-2023 Erythrocyte distribution width (RBC) [Ratio] 13.5 % Normal 11.5-15.[address] [facility] Comment on above: Performed By: #### L [id number] #### [facility] ([facility]) [address] [place] [address] ERYTHROCYTE MEAN CORPUSCULAR HEMOGLOBIN CONCENTRATION (G/DL) BY AUTOMATED 32.3 g/dL Normal 32.0-35.[address] [facility] Comment on above: Performed By: #### L [id number] #### [facility] ([facility]) [address] [place] [address] Hematocrit (Bld) [Volume fraction] 34.4 % Low 36.0-48.[address] [facility] Comment on above: Performed By: #### L [id number] #### [facility] ([facility]) [address] [place] [address] Hemoglobin (Bld) [Mass/Vol] 11.1 g/dL Low 12.0-15.[address] [facility] Comment on above: Performed By: #### L [id number] #### [facility] ([facility]) [address] [place] [address] MCH (RBC) [Entitic mass] 31.2 pg Normal 27.0-33.[address] [facility] Comment on above: Performed By: #### L [id number] #### [facility] ([facility]) [address] [place] [address] MCV (RBC) [Entitic vol] 96.6 fL Normal 82.0-98.[address] [facility] Comment on above: Performed By: #### L [id number] #### [facility] ([facility]) [address] [place] [address] PLATELETS (10*3/UL) IN BLOOD AUTOMATED COUNT 205 10*3/uL Normal 150-[address] [facility] Comment on above: Performed By: #### L [id number] #### [facility] ([facility]) [address] [place] [address] RBC (Bld) [#/Vol] 3.56 10*6/uL Low 3.80-5.00 [facility] Comment on above: Performed By: #### L [id number] #### [facility] ([facility]) [address] [place] [address] WBC (Bld) [#/Vol] 10.64 10*3/uL High 4.00-10.60 [facility] Comment on above: Performed By: #### L [id number] #### [facility] ([facility]) [address] [place] [address] CONSULTon 10-18-2023 CONSULT -- Attestation signed by [...] the case with the ER physician from [place] multiple times, when the cardiac enzyme increase significantly, the patient was transferred to the Night Custodian after discussing it with Dr. Henson. She [...] and shortness of breath. She presented at [facility] for RSV pneumonia for two days. She was discharged on Monday with mild improvement in her symptoms. Yesterday, patient started experiencing worsening dyspnea episodes, at rest and exertion. She also reports chest discomfort, retrosternal, non-radiating, of severity 5/10, relieved on nitrotabs. At [facility], High sensitivity troponin-143.6---2392. 5/ EKG-afib. Patient [...] 1939 (!) 1 (more content not included)... [facility] HPon 10-18-2023 HP -- Attestation signed [...] BELLE, Pul HTN who was admitted from [facility] where she presented with several days history of progressive shortness of breath retrosternal chest discomfort described by her as dull ache at times burning nonradiating associated for dyspnea. Given her multiple co-morbidities and anginal equivalent pain we will proceed with RHC/LHC to measure left and right sided pressure and also look for any progression of CAD in setting of NSTEMI. Normal [facility] POCT GLUCOSE METER UNSOLICIT ED RESULTSon 10-18-2023 Glucose [Mass/Vol] 307 mg/dL High 70-105 [facility] Comment on above: Order Comment: Waive d Testing in the ED is performed under the ED CLIA certificate #[id number]. Result Comment: [email or web address] Performed By: #### L [id number] #### [facility] ([facility]) [address] [place] [address] Glucose [Mass/Vol] 196 mg/dL High 70-105 [facility] Comment on above: Order Comment: Waive d Testing in the ED is performed under the ED CLIA certificate #[id number]. Result Comment: [email or web address] Performed By: #### L [id number] ####[facility] ([facility])[address] [place] [address] Glucose [Mass/Vol] 201 mg/dL High 70-105 [facility] Comment on above: Order Comment: Waive d Testing in the ED is performed under the ED CLIA certificate #[id number]. Result Comment: [email or web address] Performed By: #### L [id number] #### [facility] ([facility]) [address] [place] [address] T4, FREEon 10-18-2023 THYROXINE (T4) FREE (NG/DL) IN SER/PLAS 0.86 ng/dL Normal 0.71-1.85 [facility] Comment on above: Performed By: #### L [id number] #### [facility] ([facility]) [address] [place] [address] TROPONIN Ion 10-18-2023 Troponin I.cardiac [Mass/Vol] 3.51 ng/mL Critically high 0.00-0.[address] [facility] Comment on above: Result Comment: Prev ious result verified on 10/18/2023 0543 on specimen/case [id number] called with component Troponin I for procedure Troponin I with value 4.06 ng/mL. Performed By: #### L [id number] #### [facility] ([facility]) [address] [place] [address] Troponin I.cardiac [Mass/Vol] 4.06 ng/mL Critically high 0.00-0.[address] [facility] Comment on above: Result Comment: [place] EVIOUS CRITICAL RESULT Previous result verified on 10/18/2023 0135 on specimen/case [id number] called with component Troponin I for procedure Troponin I with value 4.29 ng/mL. Performed By: #### L [id number] #### [facility] ([facility]) [address] [place] [address] Troponin I.cardiac [Mass/Vol] 4.29 ng/mL Critically high 0.00-0.[address] [facility] Comment on above: Result Comment: [place] EVIOUS CRITICAL RESULT Previous result verified on 10/17/2023 2151 on specimen/case [id number] called with component Troponin I for procedure Troponin I with value 3.96 ng/mL. Performed By: #### L [id number] ####[facility] ([facility])[address] [place] [address] TSH3 REFLEX TO FT4on 023 THYROTROPIN (MIU/L) IN SER/PLAS BY DETECTION LIMIT <= 0.05 MIU/L 0.02 mIU/L Low 0.34-5.[address] [facility] Comment on above: Performed By: #### L [id number] #### [facility] ([facility]) [address] [place] [address] CBC WITH AUTO DIFFERENTIALon 10-17-2023 Basophils (Bld) [#/Vol] 0.01 10*3/uL Normal 0.00-0.[address] [facility] Comment on above: Performed By: #### L [id number] #### [facility] (BEAKER) [address] [place] [address] Basophils/100 WBC (Bld) 0.1 % Normal 0.0-1.[address] [facility] Comment on above: Performed By: #### L [id number] #### [facility] (BEAKER) [address] [place] [address] Eosinophils (Bld) [#/Vol] 0.00 10*3/uL Normal 0.00-0.[address] [facility] Comment on above: Performed By: #### L [id number] #### [facility] (BEAKER) [address] [place] [address] Eosinophils/100 WBC (Bld) 0.0 % Normal 0.0-6.[address] [facility] Comment on above: Performed By: #### L [id number] #### [facility] ([facility]) [address] [place] [address] Erythrocyte distribution width (RBC) [Ratio] 13.7 % Normal 11.5-15.[address] [facility] Comment on above: Performed By: #### L [id number] #### [facility] ([facility]) [address] [place] [address] ERYTHROCYTE MEAN CORPUSCULAR HEMOGLOBIN CONCENTRATION (G/DL) BY AUTOMATED 32.5 g/dL Normal 32.0-35.[address] [facility] Comment on above: Performed By: #### L [id number] #### [facility] ([facility]) [address] [place] [address] Hematocrit (Bld) [Volume fraction] 36.6 % Normal 36.0-48.[address] [facility] Comment on above: Performed By: #### L [id number] #### [facility] (BEAKER) [address] [place] [address] Hemoglobin (Bld) [Mass/Vol] 11.9 g/dL Low 12.0-15.[address] [facility] Comment on above: Performed By: #### L [id number] #### [facility] (BEAKER) [address] [place] [address] Immature granulocytes (Bld) [#/Vol] 0.10 10*3/uL Normal 0.00-0.[address] [facility] Comment on above: Performed By: #### L [id number] #### [facility] (BEAKER) [address] [place] [address] Immature granulocytes/100 WBC (Bld) 0.8 % Normal 0.0-1.[address] [facility] Comment on above: Performed By: #### L [id number] #### [facility] (BEAKER) [address] [place] [address] Lymphocytes (Bld) [#/Vol] 1.21 10*3/uL Normal 1.20-4.[address] [facility] Comment on above: Performed By: #### L [id number] #### [facility] (BEAKER) [address] [place] [address] Lymphocytes/100 WBC (Bld) 9.5 % Low 20.0-45.[address] [facility] Comment on above: Performed By: #### L [id number] #### [facility] (BEAKER) [address] [place] [address] MCH (RBC) [Entitic mass] 31.5 pg Normal 27.0-33.[address] [facility] Comment on above: Performed By: #### L [id number] #### [facility] (BEAKER) [address] [place] [address] MCV (RBC) [Entitic vol] 96.8 fL Normal 82.0-98.[address] [facility] Comment on above: Performed By: #### L [id number] #### [facility] (BEAKER) [address] [place] [address] Monocytes (Bld) [#/Vol] 0.54 10*3/uL Normal 0.10-1.[address] [facility] Comment on above: Performed By: #### L [id number] #### [facility] (BEAKER) [address] [address] Monocytes/100 WBC (Bld) 4.2 % Low 5.0-12.[address] [facility] Comment on above: Performed By: #### L [id number] #### [facility] ([facility]) [address] [place] [address] Neutrophils (Bld) [#/Vol] 10.92 10*3/uL High 1.60-7.[address] [facility] Comment on above: Performed By: #### L [id number] #### [facility] ([facility]) [address] [place] [address] Neutrophils/100 WBC (Bld) 85.4 % High 40.0-72.[address] [facility] Comment on above: Performed By: #### L [id number] #### [facility] ([facility]) [address] [place] [address] NRBC (PER 100 WBCS) BY AUTOMATED COUNT 0.0 % Normal [address] [facility] Comment on above: Performed By: #### L [id number] #### [facility] ([facility]) [address] [place] [address] PLATELETS (10*3/UL) IN BLOOD AUTOMATED COUNT 225 10*3/uL Normal 150-[address] [facility] Comment on above: Performed By: #### L [id number] #### [facility] ([facility]) [address] [place] [address] RBC (Bld) [#/Vol] 3.78 10*6/uL Low 3.80-5.00 [facility] Comment on above: Performed By: #### L [id number] #### [facility] ([facility]) [address] [place] [address] WBC (Bld) [#/Vol] 12.78 10*3/uL High 4.00-10.60 [facility] Comment on above: Performed By: #### L [id number] #### [facility] ([facility]) [address] [place] [address] COMPREHENSIVE METABOLIC PANE Henok 10-17-2023 Albumin [Mass/Vol] 4.2 g/dL Normal 3.5-5.7 [facility] Comment on above: Performed By: #### L [id number] ####[facility] ([facility])[address] [place] [address] ALP [Catalytic activity/Vol] 50 U/L Normal 34-[address] [facility] Comment on above: Performed By: #### L [id number] ####[facility] ([facility])[address] [place] [address] ALT [Catalytic activity/Vol] 45 U/L Normal 7-[address] [facility] Comment on above: Performed By: #### L [id number] ####[facility] ([facility])[address] [place] [address] Anion gap [Moles/Vol] 16 mmol/L Normal 7-[address] [facility] Comment on above: Performed By: #### L [id number] ####[facility] ([facility])[address] [place] [address] AST [Catalytic activity/Vol] 35 U/L Normal 13-[address] [facility] Comment on above: Performed By: #### L [id number] ####[facility] ([facility])[address] [place] [address] Bilirubin [Mass/Vol] 0.5 mg/dL Normal 0.3-1.0 [facility] Comment on above: Performed By: #### L [id number] ####[facility] ([facility])[address] [place] [address] Calcium [Mass/Vol] 9.0 mg/dL Normal 8.6-10.3 [facility] Comment on above: Performed By: #### L [id number] ####[facility] ([facility])[address] [place] [address] Chloride [Moles/Vol] 102 mmol/L Normal 98-107 [facility] Comment on above: Performed By: #### L [id number] ####[facility] ([facility])[address] [place] [address] CO2 [Moles/Vol] 24 mmol/L Normal 21-31 [facility] Comment on above: Performed By: #### L [id number] ####[facility] ([facility])[address] [place] [address] Creatinine [Mass/Vol] 1.13 mg/dL Normal 0.60-1.[address] [facility] Comment on above: Performed By: #### L [id number] ####[facility] ([facility])[address] [place] [address] GLOMERULAR FILTRATION RATE ML/MIN/1.73 SQ M.PREDICTED 50.1 mL/min/1.73m*2 Low >60.0 [facility] Comment on above: Result Comment: [facility]???s estimated glomerular filtration rate (eGFR) will [...] of individuals. Performed By: #### L [id number] ####[facility] ([facility])[address] [place] [address] Glucose [Mass/Vol] 243 mg/dL High 70-100 [facility] Comment on above: Performed By: #### L [id number] ####[facility] ([facility])[address] [place] [address] Potassium [Moles/Vol] 3.9 mmol/L Normal 3.5-5.[address] [facility] Comment on above: Performed By: #### L [id number] ####[facility] ([facility])[address] [place] [address] Protein [Mass/Vol] 6.4 g/dL Normal 6.0-8.3 [facility] Comment on above: Performed By: #### L [id number] ####[facility] ([facility])[address] [place] [address] Sodium [Moles/Vol] 138 mmol/L Normal 136-145 [facility] Comment on above: Performed By: #### L [id number] ####[facility] ([facility])[address] [place] [address] Urea nitrogen [Mass/Vol] 31 mg/dL High 7-[address] [facility] Comment on above: Performed By: #### L [id number] ####[facility] ([facility])[address] [place] [address] UREA NITROGEN/CREATININE (MASS RATIO) IN SER/PLAS 27.[address] [facility] Comment on above: Performed By: #### L [id number] ####[facility] ([facility])[address] [place] [address] D-DIMER, QUANTITATIVEon 10-06 FIBRIN D-DIMER (UG/L FEU) IN PLATELET POOR PLASMA <0.27 Low 0.27-0.[address] [facility] Comment on above: Order Comment: D-Dim er values of less than 0.50 ug/ml (FEU) are considered to be a negative predictor of thrombosis. However, the D-Dimer result should be used in conjunction with pretest probability and should not be used alone to diagnose a thrombotic event. Performed By: #### L [id number] ####[facility] ([facility])[address] [place] [address] HPon 10-17-2023 HP History Of Present Illness michoacano Orozco is an 78 y.o. female admitted from [facility] where she presented with several days history of progressive shortness of breath retrosternal chest discomfort described by her as dull ache at times burning nonradiating associated for dyspnea Patient was recently discharged from [facility] after being admitted for RSV pneumonia since that time she has been having shortness of breath which gets worse with activity she denies any fever chills sinus trouble sore throat she denies any dizziness lightheadedness she feels tired she has history of atrial fibrillation and has been on Eliquis and metoprolol she denies any cardioversion in the past at [facility] she had 2 sets of [...] above patient would need to go to Night [facility]ust[facility]ian we will stiven (more content not included)... Normal [facility] POCT GLUCOSE METER UNSOLICIT ED RESULTSon 10-17-2023 Glucose [Mass/Vol] 217 mg/dL High 70-105 [facility] Comment on above: Order Comment: Waive d Testing in the ED is performed under the ED CLIA certificate #[id number]. Result Comment: ebeg in Performed By: #### L [id number] ####[facility] ([facility])[address] [place] [address] TROPONIN Ion 10-17-2023 Troponin I.cardiac [Mass/Vol] 3.96 ng/mL Critically high 0.00-0.[address] [facility] Comment on above: Result Comment: M-TR OPONIN INITIAL CRITICAL HIGH; RESPUN AND RETESTED Performed By: #### L [id number] #### [facility] ([facility]) [address] [place] [address] Office Visiton 05-24-2023 Follow-up visit [id number] Rachel Orozco 1945 F Date Provider Department Center 05/24/2023 [id number] M[facility] No family history on file Level of Service:52285 [place] OFFICE/OUTPATIENT ESTABLISHED LOW MDM 20-29 MIN Reason for Visit and Comments: Follow-up [281977] - 1 YR FOLLOW UP Normal [facility] Covid-19 PCR (CVDTB)on 10-07 SARS-CoV-2 (COVID-19) RNA CIARAN+probe Ql (Unsp spec) Not detected Normal NOT DETECTED [facility] Comment on above: Result Comment: When diagnostic [...] for this test is supported by the Service Specialist of Health and Human Service's declaration that [...] used). Performed By: #### C VDTBH #### [facility] [address] [place] [address] Dr. Mildred Álvarez INFLUENZA A AND B AGon 10-26 [facility] SEE BELOW Normal [facility] Comment on above: Result Comment: Nega tive for Flu A protein angiten. Infection due to Flu A cannot be ruled out. Flu A angiten in the sample may be below the detection limit of the test. Performed By: #### I NFLUAB ####[place] [address]Dr. Mildred Álvarez INFLUBNEGH SEE BELOW Normal [facility] Comment on above: Result Comment: Nega tive for Flu B protein antigen. Infection due to Flu B cannot be ruled out. Flu B antigen in the sample may be below the detection limit of the test. Performed By: #### I NFLUAB ####[facility] [address] [place], [place] [address]Dr. Mildred Álvarez INFLUENZA A AG Negative Normal NEGATIVE SEE COMMENT [facility] Comment on above: Performed By: #### I NFLUAB ####[facility] [address] [place], [place] [address]DrBrendan Álvarez INFLUENZA B AG Negative Normal NEGATIVE SEE COMMENT [facility] Comment on above: Performed By: #### I NFLUAB ####[facility] [address] [place], [place] [address]DrBrendan Álvarez INTERNAL CONTROLS Within Normal Limits Normal Wi thin Normal Limits [facility] Comment on above: Performed By: #### I NFLUAB ####[facility] [address] [place], [place] [address]Dr. Yilan Álvarez OCC BLD IMMUNO SCREENon OCCULT BLOOD Negative Normal NEGATIVE [facility] Comment on above: Performed By: #### O BSCRN #### [facility] [address] [place] [address] Dr. Mildred Álvarez CBC AUTO DIFFon 09-09-2022 BASO # 0.0 103/ul Normal 0.0-0.1 [facility] Comment on above: Performed By: #### C BC #### [facility] [address] [place] [address] Dr. Mildred Álvarez Basophils/100 WBC (Bld) 0.9 % Normal 0.2-2.0 [facility] Comment on above: Performed By: #### C BC #### [facility] [address] [place] [address] Dr. Mildred Álvarez EO # 0.2 103/ul Normal 0.0-0.7 [facility] Comment on above: Performed By: #### C BC #### [facility] [address] [place] [address] Dr. Mildred Álvarez Eosinophils/100 WBC (Bld) 4.8 % Normal 0.9-7.0 [facility] Comment on above: Performed By: #### C BC #### [facility] [address] [place] [address] Dr. Mildred Álvarez Erythrocyte distribution width (RBC) [Ratio] 12.5 % Normal 11.0-15.0 [facility] Comment on above: Performed By: #### C BC #### [facility] [address] [place] [address] Dr. Mildred Álvarez Hematocrit (Bld) [Volume fraction] 36.7 % Normal 36.0-48.0 [facility] Comment on above: Performed By: #### C BC #### [facility] [address] [place] [address] Dr. Mildred Álvarez Hemoglobin (Bld) [Mass/Vol] 11.9 g/dL Critically low 12.0-16.0 [facility] Comment on above: Performed By: #### C BC #### [facility] [address] [place] [address] Dr. Mildred Álvarez IG # 0.02 10e3/ul Normal 0.00-0.03 [facility] Comment on above: Performed By: #### C BC #### [facility] [address] [place] [address] Dr. Mildred Álvarez IG % 0.5 % Normal 0.0-0.5 [facility] Comment on above: Performed By: #### C BC #### [facility] [address] [place] [address] Dr. Mildred Álvarez LYMPH # 1.6 103/ul Normal 1.2-3.8 [facility] Comment on above: Performed By: #### C BC #### [facility] [address] [place] [address] Dr. Mildred Álvarez Lymphocytes/100 WBC (Bld) 37.4 % Normal 20.5-60.0 [facility] Comment on above: Performed By: #### C BC #### [facility] [address] [place] [address] Dr. Mildred Álvarez MANUAL DIFF REQ NO Normal [facility] Comment on above: Performed By: #### C BC #### [facility] [address] [place] [address] Dr. Mildred Álvarez MCH (RBC) [Entitic mass] 32.2 pg Normal 26.7-34.0 [facility] Comment on above: Performed By: #### C BC #### [facility] [address] [place] [address] Dr. Mildred Álvarez MCHC (RBC) [Mass/Vol] 32.4 g/dL Normal 29.9-35.2 [facility] Comment on above: Performed By: #### C BC #### [facility] [address] [place] [address] Dr. Mildred Álvarez MCV (RBC) [Entitic vol] 99.5 fL Critically high 81.0-99.0 [facility] Comment on above: Performed By: #### C BC #### [facility] [address] [place] [address] Dr. Mildred Álvarez MONO # 0.6 103/ul Normal 0.3-0.8 [facility] Comment on above: Performed By: #### C BC #### [facility] [address] [place] [address] Dr. Mildred Álvarez Monocytes/100 WBC (Bld) 13.5 % Critically high 1.7-12.0 [facility] Comment on above: Performed By: #### C BC #### [facility] [address] [place] [address] Dr. Mildred Álvarez NEUT # 1.9 103/ul Normal 1.4-6.5 [facility] Comment on above: Performed By: #### C BC #### [facility] [address] [place] [address] Dr. Mildred Álvarez Neutrophils/100 WBC (Bld) 42.9 % Critically low 43.0-75.0 [facility] Comment on above: Performed By: #### C BC #### [facility] [address] [place] [address] Dr. Mildred Álvarez Platelet mean volume (Bld) [Entitic vol] 11.1 fL Normal 9.5-13.5 [facility] Comment on above: Performed By: #### C BC #### [facility] [address] [place] [address] Dr. Mildred Álvarez PLT 212 103/ul Normal 150-450 [facility] Comment on above: Performed By: #### C BC #### [facility] [address] [place] [address] Dr. Mildred Álvarez RBC 3.69 106/ul Critically low 4.20-5.40 [facility] Comment on above: Performed By: #### C BC #### [facility] [address] [place] [address] Dr. Mildred Álvarez WBC 4.4 103/ul Normal 4.0-11.0 [facility] Comment on above: Performed By: #### C BC #### [facility] [address] [place] [address] Dr. Mildred Álvarez FREE T3on 09-09-2022 FREE T3 1.92 pg/mlL Critically low 2.18-3.98 [facility] Comment on above: Performed By: #### C MP, T4, FT3, LIPID, TSH #### [facility] [address] [place] [address] [address] Mildred Álvarez GLYCOHEMOGLOBIN A1Con 2021 ADA RECOMMENDATION SEE BELOW Normal The [facility] Comment on above: Result Comment: ADA RECOMMENDED LIMIT 4.0 - 6.0 ADA THERAPEUTIC TARGET < 7.0 ACTION SUGGESTED > 7.0 Performed By: #### A 1C #### [facility] [address] [place] [address] [address] Mildred Álvarez Glucose [Mass/Vol] 140 mg/dL Normal [facility] Comment on above: Performed By: #### A 1C #### [facility] [address] [place] [address] Dr. Mildred Álvarez HbA1c (Bld) [Mass fraction] 6.5 % Critically high 4.5-6.2 [facility] Comment on above: Performed By: #### A 1C #### [facility] [address] [place] [address] Dr. Mildred Álvarez LIPID PROFILEon 09-09-2022 CHOL-HDL RATIO NORM SEE BELOW Normal [facility] Comment on above: Result Comment: 3.3 - 4.4 LOW RISK 4.4 - 7.1 AVERAGE RISK 7.1 - 11.0 MODERATE RISK >11.0 HIGH RISK Performed By: #### C MP, T4, FT3, LIPID, TSH #### [facility] [address] [place] [address] [address] Mildred Álvarez Cholesterol [Mass/Vol] 153 mg/dL Normal <=200 [facility] Comment on above: Performed By: #### C MP, T4, FT3, LIPID, TSH #### [facility] [address] [place] [address] [address] Mildred Álvarez Cholesterol in HDL [Mass/Vol] 44 mg/dL Normal 40-60 [facility] Comment on above: Performed By: #### C MP, T4, FT3, LIPID, TSH #### [facility] [address] [place] [address] [address] Mildred Álvarez Cholesterol in LDL [Mass/Vol] 82.6 mg/dL Normal [facility] Comment on above: Performed By: #### C MP, T4, FT3, LIPID, TSH #### [facility] [address] [place] [address] Dr. Mildred Álvarez Cholesterol.total/Ch olesterol in HDL [Mass ratio] 3.5 {ratio} Normal [facility] Comment on above: Performed By: #### C MP, T4, FT3, LIPID, TSH #### [facility] [address] [place] [address] [address] Mildred Álvarez HDL NORMAL > or = 60 mg/dl - LO W CARDIOVASCULAR RISK <40 mg/dl - HIGH CARDIOVASCULAR RISK Normal [facility] Comment on above: Performed By: #### C MP, T4, FT3, LIPID, TSH #### [facility] [address] [place] [address] Dr. Mildred Álvarez LDL CALC NORMAL SEE BELOW Normal [facility] Comment on above: Result Comment: <100 mg/dl OPTIMAL 100 - 129 mg/dl NEAR OR ABOVE OPTIMAL 130 - 159 mg/dl BORDERLINE HIGH 160 - 189 mg/dl HIGH >190 mg/dl VERY HIGH Performed By: #### C MP, T4, FT3, LIPID, TSH #### [facility] [address] [place] [address] Dr. Mildred Álvarez Triglyceride [Mass/Vol] 132 mg/dL Normal <=150 [facility] Comment on above: Performed By: #### C MP, T4, FT3, LIPID, TSH #### [facility] [address] [place] [address] Dr. Mildred Álvarez VLDL CALC 26.4 mg/dL Normal [facility] Comment on above: Performed By: #### C MP, T4, FT3, LIPID, TSH #### [facility] [address] [place] [address] Dr. Mildred Álvarez PROF 14(COMP METB)on 022 Albumin [Mass/Vol] 3.7 g/dL Normal 3.4-5.0 [facility] Comment on above: Performed By: #### C MP, T4, FT3, LIPID, TSH #### [facility] [address] [place] [address] Dr. Mildred Álvarez Albumin/Globulin [Mass ratio] 1.2 {ratio} Normal [facility] Comment on above: Performed By: #### C MP, T4, FT3, LIPID, TSH #### [facility] [address] [place] [address] Dr. Mildred Álvarez ALP [Catalytic activity/Vol] 52 U/L Normal 46-116 [facility] Comment on above: Performed By: #### C MP, T4, FT3, LIPID, TSH #### [facility] [address] [place] [address] Dr. Mildred Álvarez ALT [Catalytic activity/Vol] 35 U/L Normal 14-59 [facility] Comment on above: Performed By: #### C MP, T4, FT3, LIPID, TSH #### [facility] [address] [place] [address] Dr. Mildred Álvarez Anion gap [Moles/Vol] 9.5 mmol/L Normal [facility] Comment on above: Performed By: #### C MP, T4, FT3, LIPID, TSH #### [facility] [address] [place] [address] Dr. Mildred Álvarez AST [Catalytic activity/Vol] 19 U/L Normal 15-37 [facility] Comment on above: Performed By: #### C MP, T4, FT3, LIPID, TSH #### [facility] [address] [place] [address] Dr. Mildred Álvarez Bilirubin [Mass/Vol] 0.3 mg/dL Normal 0.2-1.0 [facility] Comment on above: Performed By: #### C MP, T4, FT3, LIPID, TSH #### [facility] [address] [place] [address] Dr. Mildred Álvarez Calcium [Mass/Vol] 9.4 mg/dL Normal 8.5-10.1 [facility] Comment on above: Performed By: #### C MP, T4, FT3, LIPID, TSH #### [facility] [address] [place] [address] [address] Mildred Álvarez Chloride [Moles/Vol] 106 mmol/L Normal 98-107 [facility] Comment on above: Performed By: #### C MP, T4, FT3, LIPID, TSH #### [facility] [address] [place] [address] [address] Mildred Álvarez CO2 [Moles/Vol] 28.9 mmol/L Normal 21.0-32.0 [facility] Comment on above: Performed By: #### C MP, T4, FT3, LIPID, TSH #### [facility] [address] [place] [address] [address] Mildred Álvarez Creatinine [Mass/Vol] 1.04 mg/dL Critically high 0.55-1.02 [facility] Comment on above: Performed By: #### C MP, T4, FT3, LIPID, TSH #### [facility] [address] [place] [address] Dr. Mildred Álvarez EGFR-AF BRUNEIAN >60 Normal >=60 [facility] Comment on above: Performed By: #### C MP, T4, FT3, LIPID, TSH #### [facility] [address] [place] [address] [address] Mildred Álvarez EGFR-NON AF BRUNEIAN >60 Normal >=60 [facility] Comment on above: Performed By: #### C MP, T4, FT3, LIPID, TSH #### [facility] [address] [address] [address] Mildred Álvarez Globulin (S) [Mass/Vol] 3.2 g/dL Normal [facility] Comment on above: Performed By: #### C MP, T4, FT3, LIPID, TSH #### [facility] [address] [address] [address] Mildred Álvarez Glucose [Mass/Vol] 131 mg/dL Critically high 74-106 [facility] Comment on above: Performed By: #### C MP, T4, FT3, LIPID, TSH #### [facility] [address] [address] [address] Mildred Álvarez Potassium [Moles/Vol] 4.4 mmol/L Normal 3.5-5.1 [facility] Comment on above: Performed By: #### C MP, T4, FT3, LIPID, TSH #### [facility] [address] [place] [address] Dr. Mildred Álvarez Protein [Mass/Vol] 6.9 g/dL Normal 6.4-8.2 [facility] Comment on above: Performed By: #### C MP, T4, FT3, LIPID, TSH #### [facility] [address] [place] [address] Dr. Mildred Álvarez Sodium [Moles/Vol] 140 mmol/L Normal 136-145 [facility] Comment on above: Performed By: #### C MP, T4, FT3, LIPID, TSH #### [facility] [address] [place] [address] Dr. Mildred Álvarez Urea nitrogen [Mass/Vol] 28.0 mg/dL Critically high 7.0-18.0 [facility] Comment on above: Performed By: #### C MP, T4, FT3, LIPID, TSH #### [facility] [address] [place] [address] Dr. Mildred Álvarez Urea nitrogen/Creatinine [Mass ratio] 26.9 mg/mg Normal [facility] Comment on above: Performed By: #### C MP, T4, FT3, LIPID, TSH #### [facility] [address] [place] [address] Dr. Mildred Álvarez T4on 09-09-2022 T4 [Mass/Vol] 5.10 ug/dL Normal 4.80-13.90 [facility] Comment on above: Performed By: #### C MP, T4, FT3, LIPID, TSH #### [facility] [address] [place] [address] Dr. Mildred Álvarez TSHon 09-09-2022 TSH 0.641 uIU/mL Normal 0.358-3.740 [facility] Comment on above: Performed By: #### C MP, T4, FT3, LIPID, TSH #### [facility] [address] [place] [address] Dr. Mildred Álvarez VITAMIN D 25 OHon 09-09-2022 VIT D 25-OH 45.3 ng/mL Normal [facility] Comment on above: Performed By: #### V ITAD ####[facility] [id number] [place], [place] [address]OpBrendan Álvarez VIT D RANGES SEE BELOW Normal [facility] Comment on above: Result Comment: <20 ng/mL Vit D deficient 20 - <30 ng/mL Vit D insufficient 30 - 100 ng/mL Vit D sufficient >100 ng/mL Potential Toxicity Performed By: #### V ITAD ####[facility] [id number] [id number] Álvarez MG MAMM SCREEN 3D MIGUEL CADon 06-20-2022 MG MAMM SCREEN 3D MIGUEL CAD Patient: RACHEL OROZCO Exam Date: 06/20/2022 : 1945 Gender:F Ordering : DR BEN KRAFT . Admission #: [id number] Family : Order #: [id number] CLICK HERE TO VIEW EXAM RADIOLOGY REPORT [...] ovarian cancer at age 41. LOCATION: [facility] BREAST COMPOSITION: Scattered areas fibroglandular density. FINDINGS: [...] Sunshine M.D. on 06/20/2022 at 12:49 Normal [facility] Encounters Encounter Date Encounter Type Care Provider Facility Start: 01-02-2024 ambulatory Jax TROY Facility :[facility] Start: 12-01-2023 ambulatory Jax WOODROW Facility:[facility] Start: 10-26-2023 End: 10-26-2023 ambulatory SAADIA MARY [facility] Start: 10-19-2023 Evaluation and management of inpatient BLANCHE WELLSCARLITO [facility] Start: 10-18-2023 Evaluation and management of inpatient ANNABELLA RYAN OWEN [facility] Start: 10-18-2023 Evaluation and management of inpatient SHERITAGRIFFINROMANA RAYMOND [facility] Start: 10-17-2023 End: 10-20-2023 Evaluation and management of inpatient BETTY ROBERT [facility] Start: 05-24-2023 ambulatory [facility] Start: 10-26-2022 End: 10-26-[address] BEN KRAFT Facility:[facility] Start: 09-12-2022 End: 09-12-[address] BEN KRAFT Facility:[facility] Start: 09-09-2022 End: 09-10-[address] BEN KRAFT Facility:[facility] Start: 06-20-2022 End: 06-21-[address] BEN KRAFT Facility:[facility] Start: 06-12-2019 End: 06-12-2019 Emergency department patient visit DENZEL OHARA Facility:[facility] Payers Date Payer Category Payer Medicare [id number] 1958 Unknown [id number] 1945 Unknown [id number] [id number] 1945 Unknown [id number] 2.16.84 [id number] 1945 Unknown [id number] 2.16.84 [id number] 1945 Unknown [id number] 2.16.84 [id number] 1945 Unknown [id number] 2.16.84 [id number] 1945 Unknown [id number] 2.16.8 [id number] Medicare [id number] Clinical Notes 05-24-2023 to 10-26-2023 Note Date & Type Note Facility 10-26-2023 Note Patient here for fol low [facility] for NSTEMI. Underwent heart cath on 10/18/2023 [...] All other systems reviewed and are negative. [facility] 10-26-2023 Note Cardiovascular Medic ine [facility] SUBJECTIVE No chief complaint on file. Rachel Orozco is a 78 y.o. female here for follow-up after her recent admission to [facility]. HPI Patient here for follow up [facility] for NSTEMI. Underwent heart cath [...] is an 78 y.o. female admitted from [facility] where she presented with several days history of progressive shortness of breath retrosternal chest discomfort described by her as dull ache at times burning nonradiating associated for dyspnea Patient was recently discharged from [facility] after being admitted for RSV pneumonia since that time she has been having shortness of breath which gets worse with activity she denies any fever chills sinus trouble sore throat she denies any dizziness lightheadedness she feels tired she has history of atrial fibrillation and has been on Eliquis and metoprolol she denies any cardioversion in the past at [facility] she had 2 sets of [...] mouth in the (more content not included)... [facility] 10-20-2023 Note Hospital Medicine Discharge Summary Final Discharge Diagnosis: Chest pain Admission Diagnosis: Chest pain [R07.9] Hospital course: [place] Orozco is an 78 y.o. female admitted from [facility] where she presented with several days history of progressive shortness of breath retrosternal chest discomfort described by her as dull ache at times burning nonradiating associated for dyspnea Patient was recently discharged from [facility] after being admitted for RSV pneumonia since that time she has been having shortness of breath which gets worse with activity she denies any fever chills sinus trouble sore throat she denies any dizziness lightheadedness she feels tired she has history of atrial fibrillation and has been on Eliquis and metoprolol she denies any cardioversion in the past at [facility] she had 2 sets of [...] out without esophagitis Dear Dr. Swapnil MD, [facility] is advised to follow up with you within 1-2 weeks. Follow-up with: Cardiology Scheduled appointments: Future Appointments Date Time Provider Department Center 10/26/2023 11:40 AM Saadia Myles NP [facility] Your medication list START taking these [...] Medications These medications were sent to [facility] - [address] [place] [address] [address] [facility] [place] [address], [facility] [address] aspirin 81 mg EC tablet atorvastatin 80 [...] AUTO 10*3/uL 239 (more content not included)... [facility] 10-20-2023 Note Physical Therapy Spoke with [...] and sign off. Chris Obando PT, DPT [facility] 10-20-2023 Note Patient requires 2 L nc with ambulation to maintain O2 greater than 92% due to her diastolic heart failure. -Danielle Myles, KOBI [facility] 10-20-2023 Note 10/20/23 1345 Home Oxygen Therapy Evaluation Pulse Oximetry on room air at Rest 94 Pulse Ox on room air while walking 88 Pulse Ox on O2 with nasal cannula while walking 95 Patient Qualification for home oxygen Qualifies $ Pulse Oximetry Multiple (home oxygen eval) [facility] 10-20-2023 Note ------ Attestation signed by [...] 86 QT Interval 458 QTC CALCULATION(BAZETT) 545 R-Mack 107 T Wave Mack 238 Impression Atrial fibrillation with premature ventricular [...] Bubble Study Result Date: 10/18/[address] [facility] Heart Station [address] [place] [address] [phone] (fax) Echocardiogram-[facility] Name: RACHEL OROZCO Study Date: 10/18/2023 08:28 AM B/P: 124 mmHg/69 mmHg HR: 72 bpm Date of : 1945 Location: [facility] Height: 63 in. Age: 78 [...] cm?? Aortic V (more content not included)... [facility] 10-20-2023 Note Occupational Therapy Occupational Therapy [...] Level of Function Prior Function Level of Mcnairy: Independent with ADLs and functional transfers, Independent [...] Eating meals?: None (Independent) Total Score OT [facility]: 24 Assessment/Plan Plan OT Plan: No skilled OT OT Discharge Recommendations: Home OT - Discharge Recommendations Placed: Yes OT Goals Multi-Disciplinary Problems (from Occupational Therapy) Active Problems Not on file [facility] 10-19-2023 Note 10/19/23 1147 Admission Assessment [...] Yes Does the patient have a case picker assigned to them through their insurance? No [...] since she lives alone and is concerned [facility] 10-19-2023 Note Hospital Medicine Daily Progress Note - 10/19/2023 6:04 PM; Room: [address] [place] [address] Admission: 10/17/2023 7:37 PM; Length of stay: 2 days THE HOSPITALIST TEAM PREFERS TO USE [employer] CHAT FOR COMMUNICATION 7AM-7PM. IF I DO NOT RESPOND WITHIN 15 MINUTES, PLEASE PAGE ME/CALL THROUGH THE PRESERVATIVE FILLER MACHINE OPERATOR. FROM 7PM-7AM, PLEASE PAGE [phone](COVR) Code Status: Full Code Barriers to Discharge: [...] Active Problems: NSTEMI (non-ST elevated myocardial infarction) ([facility]) Assessment and Plan NSTEMI Recent [...] FREET4 0.86 10/18/2023 No results found for: [id number] , IRON , TIBC , C3 , [...] 07:59, QRS axis (more content not included)... [facility] 10-19-2023 Note [facility] CARDIOLOGY INPAT IENT [...] 86 QT Interval 458 QTC CALCULATION(BAZETT) 545 R-Mack 107 T Wave Mack 238 Impression Atrial fibrillation with premature ventricular or aberrantly conducted complexes Right axis (more content not included)... [facility] 10-18-2023 Note Hospital Medicine Daily Progress Note - 10/18/2023 4:57 PM; Room: [address] [place] [address] Admission: 10/17/2023 7:37 PM; Length of stay: 1 days THE HOSPITALIST TEAM PREFERS TO USE [employer] FOR COMMUNICATION 7AM-7PM. IF I DO NOT RESPOND WITHIN 15 MINUTES, PLEASE PAGE ME/CALL THROUGH THE PRESERVATIVE FILLER MACHINE OPERATOR. FROM 7PM-7AM, PLEASE PAGE [phone](COVR) Code Status: Full Code Barriers to Discharge: [...] Active Problems: NSTEMI (non-ST elevated myocardial infarction) ([facility]) Assessment and Plan NSTEMI Recent [...] FREET4 0.86 10/18/2023 No results found for: [id number] , IRON , TIBC , C3 , [...] axis Pulmonary dis (more content not included)... [facility] 10-18-2023 Note Patient: Rachel Orozco Procedure Information Date/Time: 10/18/231729 Procedures: Coronary angiography Right heart cath Location: [facility] GRINDER SET UP OPERATOR [facility] 3 / [facility] (Cath) Providers: Antony Henson [...] Plan discussed with attending. Additional Equipment Requests [facility] 10-17-2023 Note Hospital Medicine History and Physical 10/17/2023 8:17 PM THE HOSPITALIST TEAM PREFERS TO USE [employer] CHAT FOR COMMUNICATION 7AM-7PM. IF I DO NOT RESPOND WITHIN 15 MINUTES, PLEASE PAGE ME/CALL THROUGH THE PRESERVATIVE FILLER MACHINE OPERATOR. FROM 7PM-7AM, PLEASE PAGE [phone](COVR) Chief Complaint No chief complaint on file. History of Present Illness Rachel Orozco is an 78 y.o. female admitted from [facility] where she presented with several days history of progressive shortness of breath retrosternal chest discomfort described by her as dull ache at times burning nonradiating associated for dyspnea Patient was recently discharged from [facility] after being admitted for RSV pneumonia since that time she has been having shortness of breath which gets worse with activity she denies any fever chills sinus trouble sore throat she denies any dizziness lightheadedness she feels tired she has history of atrial fibrillation and has been on Eliquis and metoprolol she denies any cardioversion in the past at [facility] she had 2 sets of [...] Noted Chest pain 10/17/2023 Diastolic heart failure ([facility]) 05/19/2022 Atrial fibrillation ([facility]) 12/02/2019 Dyspnea on exertion 06/21/2018 Bradycardia 06/21/2018 Assessment and Plan Non-ST MARTIN hide discussed with cardiology will repeat troponin if they are 5 or above patient would need to go to [facility] we will continue beta-reanna statin asa IV [...] this hospital stay by a member of [facility]. Past Medical History No past [...] mouth in t (more content not included)... [facility] 05-24-2023 Note Cardiology Clinic No te [...] 1 year (around 05/24/2024). Keaton Mims APRN-KOBI [facility] Cardiovascular Medicine [facility] Summary Purpose Family History No Family History Records FoundNo Family History Records FoundNo Family History Records FoundNo Family History Records Found Advance Directives No Advanced Directives Records FoundNo Advanced Directives Records FoundNo Advanced Directives Records FoundNo Advanced Directives Records Found Additional Source Comments INFORMATION SOURCE (unrecogn ized section and content) DATE CREATED AUTHOR 12/09/2019 [facility] DATE CREATED AUTHOR AUTHOR'S ORGANIZ ATION 11/02/2022 [facility] DATE CREATED AUTHOR AUTHOR'S ORGANIZ ATION 11/05/2023 [facility] DATE CREATED AUTHOR AUTHOR'S ORGANIZ ATION 12/06/[address] [facility] FOR RECORDS PERTAINING TO PATIENTS WHO ARE [...] BE BASED ON THE PRIMARY CLINICAL RECORDS. [employer] provides no warranty or guarantee of the accuracy or completeness of information in this document.
[2023-12-16 00:22] LABS: Glucometer 126 mg/dL (74-106)
[2023-12-16 00:31] VITALS: BP 144/71; PULSE 85; RESP 16; TEMP 36.7; O2SAT 93; BMI 28.6
[2023-12-16] MEDS: APIXABAN 5 MG TABLET PO ×3 (00:38→22:08)
[2023-12-16] MEDS: 0.9 % SODIUM CHLORIDE 1,000 ML 100 ML IV ×4 (00:38→22:03)
[2023-12-16 05:05] LABS: Basophils Percent Auto 0.3 % (0.2-2.0); Eosinophils Percent Auto 0.3 % (0.9-7.0); Hematocrit 36.9 % (36.0-48.0); Hemoglobin 11.3 g/dL (12.0-16.0); Immature Granulocytes Abs Auto 0.03 10^3/uL (0.00-0.03); Immature Granulocytes Pct Auto 0.3 % (0.0-0.5); Lymphocytes Absolute Auto 1.6 10^3/uL (1.2-3.8); Lymphocytes Percent Auto 16.9 % (20.5-60.0); Mean Corpuscular HGB Conc 30.6 g/dL (29.9-35.2); Mean Corpuscular Hemoglobin 30.3 pg (26.7-34.0); Mean Corpuscular Volume 98.9 fL (81.0-99.0); Mean Platelet Volume 12.1 fL (9.5-13.5); Monocytes Absolute Auto 0.8 10^3/uL (0.3-0.8); Monocytes Percent Auto 8.4 % (1.7-12.0); Neutrophils Percent Auto 73.8 % (43.0-75.0); Platelet Count 217 10^3/uL (150-450); Red Blood Count 3.73 10^6/uL (4.20-5.40); White Blood Count 9.5 10^3/uL (4.0-11.0)
[2023-12-16 05:11] LABS: Anion Gap 17.8; BUN Creatinine Ratio 24.7; Calcium 9.2 mg/dL (8.5-10.1); Carbon Dioxide 20.8 mmol/L (21.0-32.0); Chloride 105 mmol/L (98-107); Estimated GFR (African America 26 (>=60); Estimated GFR (Non-African Ame 22 (>=60); Glucose 112 mg/dL (74-106); Potassium 4.6 mmol/L (3.5-5.1); Sodium 139 mmol/L (136-145)
[2023-12-16 07:54] LABS: Alanine Aminotransferase 128 U/L (14-59); Albumin Level 3.1 g/dL (3.4-5.0); Alkaline Phosphatase 60 U/L (46-116); Aspartate Amino Transferase 131 U/L (15-37); Bilirubin Direct 0.3 mg/dL (0.0-0.2); Bilirubin Total 0.6 mg/dL (0.2-1.0); Total Protein 6.1 g/dL (6.4-8.2)
--- NOTE | 2023-12-16 08:18 | P.HP_ITS ---
H&P: HPI History of Present Illness Chief complaint: BELLY CRAMPS, NAUSEA Narrative: Pt reina not felt well for the last couple of months sine having her heart attack. But in last three days has felt worse - abdominal cramps, felt constipated so took several doses of laxatives. Has had some bloody diarrhea since then. Presented to ER afer labs the previous day showed dehydratuion. ER labs worse with acute renal failure, ct scan with colitis. Admitted to inopatient status Review of Systems ROS Status of ROS 10 or more systems reviewed and unremark able except as noted in history and below [facility] Medical History (Updated 12/15/23 @ 21:29 by KEERTHI Story) RSV bronchitis ?J20.5 - Acute bronchitis due to respiratory syncytial virus (ICD-10) Atrial fibrillation ?I48.91 - Unspecified atrial fibrillation (ICD-10) Hypertension ?I10 - Essential (primary) hypertension (ICD-10) Type 2 diabetes mellitus ?E11.9 - Type 2 diabetes mellitus without complications (ICD-10) Acute exacerbation of chronic obstructive pulmonary disease ?J44.1 - Chronic obstructive pulmonary disease with (acute) exacerbation (ICD-10) Surgical History History of arthroplasty of right shoulder ?Z96.611 - Presence of right artificial shoulder joint (ICD-10) History of knee replacement ?Z96.659 - Presence of unspecified artificial knee joint (ICD-10) H/O: hysterectomy ?Z90.710 - Acquired absence of both cervix and uterus (ICD-10) Family History (Updated 12/16/23 @ 00:28 by Olesya Guzman) Sister Family history of CHF (congestive heart failure) Family history of cancer Family history of diabetes mellitus Family history of hypertension Mother Family history of cancer Brother Family history of cancer Social History (Updated 12/16/23 @ 00:30 by Olesya Guzman) Within the past year, how often did you have a drink containing alcohol: 2-3 times a week Within the past year, how many standard drinks containing alcohol did you have on a typical day: 1 or 2 Within the past year, how often did you have six or more drinks on one occasion: less than monthly Total score: 1 Score interpretation: A score of 3 or more indicates drinking is likely to affect patient's safety. Smoking status: Former smoker Non-prescribed substance use: denies use Previous occupational history: [employer] Highest level of school completed/degree received: high school graduate Are you now , , , , never or living with a partner: In a typical week, how many times do you talk on the telephone with family, friends, or neighbors: 3 or more times per week How often do you get together with friends or relatives: 3 or more times per week How often do you attend advent or zoroastrianism services: 1-3 times per year Do you belong to any clubs or organizations such as advent groups unions, [employer] or athletic groups, or school groups: no Total score: 1 Score interpretation: A score of less than or equal to 1 indicates the most socially isolated. Little interest or pleasure in doing things: more than half the days Feeling down, depressed, or hopeless: more than half the days Feel stressed/tense/nervous/anxious/difficulty sleeping: very much Life stressor details: medical issues. Due to disability, difficulty making decisions: No Do you think of yourself as: straight/heterosexual Gender Identity: female Meds Home Medications and Allergies Home Medications Medication Instructions Recorded Confirmed Type apixaban 5 mg tablet (Eliquis) 5 mg PO Q12H 10/14/23 12/16/23 History diclofenac sodium 75 mg 75 mg PO DAILY 10/14/23 12/16/23 History tablet,delayed release furosemide 40 mg tablet 40 mg PO DAILY 10/14/23 12/16/23 History levothyroxine 88 mcg tablet 88 mcg PO DAILY 10/14/23 12/16/23 History liothyronine 25 mcg tablet 25 mcg PO DAILY 10/14/23 12/16/23 History metoprolol succinate 25 mg 12.5 mg PO .morning 10/14/23 12/16/23 History tablet,extended release 24 hr aspirin 81 mg tablet,delayed 81 mg PO .morning 12/15/23 12/16/23 History release atorvastatin 40 mg tablet (Lipitor) 40 mg PO .evening 12/15/23 12/16/23 History empagliflozin 10 mg tablet 10 mg PO DAILY 12/15/23 12/16/23 History (Jardiance) fenofibrate micronized 134 mg 134 mg PO .in the morning. 12/15/23 12/16/23 History capsule lisinopril 5 mg tablet 5 mg PO DAILY 12/15/23 12/16/23 History oxybutynin chloride 10 mg 10 mg PO .evening 12/15/23 12/16/23 History tablet,extended release 24 hr potassium chloride 10 mEq 20 meq PO BID 12/15/23 12/16/23 History tablet,extended release(part/cryst) spironolactone 25 mg tablet 25 mg PO .morning 12/16/23 12/16/23 History Allergies Allergy/AdvReac Type Severity Reaction Status Date / Time No Known Drug Allergies Allergy Verified 12/15/23 20:09 Exam Constitutional Vital Signs, click to edit/add: Last Vital Signs Temp 98.0 F 12/16/23 00:31 Pulse 85 12/16/23 00:31 Resp 16 12/16/23 00:31 BP 144/71 H 12/16/23 00:31 Pulse Ox 93 L 12/16/23 00:31 O2 Del Method Room Air 12/16/23 00:31 Documenting provider has reviewed patient's vital signs: yes Common normals: apparent distress (mild - mod painful distress) HENMT Common normals: oral mucous membranes not moist Respiratory Common normals: normal respiratory effort and no retractions Cardio Common normals: regular rate and regular rhythm GI Common normals: soft to palpation; tender Palpation: tender (More in LLQ) and rebound tenderness present Results Labs Labs: Short CBC 12/15/23 12/16/23 Range/Units 20:26 04:23 WBC 7.6 9.5 (4.0-11.0) 10^3/uL Hgb 13.6 11.3 L (12.0-16.0) g/dL Hct 44.2 36.9 (36.0-48.0) % Plt Count 315 217 (150-450) 10^3/uL BMP 12/15/23 12/16/23 20:26 04:23 Sodium 138 139 Potassium 4.7 4.6 Chloride 100 105 Carbon Dioxide 24.4 20.8 L BUN 56.0 H 54.0 H Creatinine 2.48 H 2.19 H Glucose 178 H 112 H Calcium 10.4 H 9.2 Liver Function 12/15/23 12/16/23 Range/Units 20:26 04:23 Total Bilirubin 0.8 0.6 (0.2-1.0) mg/dL Direct Bilirubin 0.3 H (0.0-0.2) mg/dL AST 180 H 131 H (15-37) U/L ALT 156 H 128 H (14-59) U/L Alkaline Phosphatase 78 60 (46-116) U/L Albumin 4.1 3.1 L (3.4-5.0) g/dL Urine 12/15/23 Range/Units 22:00 Urine Color Lt. yellow (YELLOW) Urine Clarity Clear (CLEAR) Urine pH 5.0 (5.0-9.0) Ur Specific Halma <=1.005 A (1.005-1.025) Urine Protein Negative (NEG/TRACE) mg/dL Urine Glucose (UA) 250 A (NEGATIVE) mg/dL Assessment and Plan Assessment and Plan (1) Dehydration: (2) Hypertension: (3) Type 2 diabetes mellitus: Plan Acute abd pain with colitis noted on CT - acute abd findings with rebound tenderness, not rigid - start IV ab, Stool for PCR and specific PCR for C-diff. Acute renal failure - baseline creatinine of .96 - Creat up to 2.45 - 2.5 X above baseline - Improved some today - needs slow rehydration due to hx chronic combined CHF - Echo 3 days ago with elevated Right vent pressure. NIDDM _ cont with meds plus insulin ss CAD -0 check BNP HST in am Elevated LFT - may need liver u/s Hypothyroidism - recent labs were fine With need for slow rehydration due to chronic congestive heart failure with recent echo with elevated RVP - medical care will span 2 midnights resulting in the need for inpatient status
[2023-12-16 08:28] LABS: Erythrocyte Sedimentation Rate 12 mm/hr (<=30)
[2023-12-16] MEDS: FENOFIBRATE 54 MG TABLET 108 MG PO (10:19)
[2023-12-16] MEDS: METOPROLOL SUCCINATE 25 MG TAB.ER.24H 12.5 MG PO (10:20)
[2023-12-16] MEDS: LIOTHYRONINE SODIUM 25 MCG TABLET PO (10:20)
[2023-12-16] MEDS: LEVOTHYROXINE SODIUM 88 MCG TABLET PO (10:20)
[2023-12-16] MEDS: ASPIRIN 81 MG TABLET.DR PO (10:20)
[2023-12-16] MEDS: LISINOPRIL 5 MG TABLET PO (10:20)
[2023-12-16] MEDS: ATORVASTATIN CALCIUM 40 MG TABLET PO (10:20)
[2023-12-16] MEDS: CIPROFLOXACIN IN 5 % DEXTROSE 400 MG/200 ML PIGGYBACK 200 MG IV ×2 (10:22→21:58)
[2023-12-16] MEDS: CANAGLIFLOZIN 100 MG TABLET PO (10:22)
[2023-12-16] MEDS: PANTOPRAZOLE SODIUM 40 MG VIAL IV (10:26)
[2023-12-16 10:27] LABS: Occult Blood Positive
[2023-12-16 11:14] LABS: Glucometer 173 mg/dL (74-106)
[2023-12-16] MEDS: HYOSCYAMINE SULFATE 0.125 MG TAB.SUBL SL ×3 (11:49→22:02)
[2023-12-16] MEDS: INSULIN ASPART 300 UNIT/3 ML PEN SUBQ (11:50)
[2023-12-16] MEDS: METRONIDAZOLE/SODIUM CHLORIDE 500 MG/100 ML PREMIX 100 MG IV ×3 (11:56→23:15)
[2023-12-16 12:59] LABS: C. Difficile PCR NEGATIVE (NEGATIVE)
[2023-12-16 14:24] VITALS: BP 80/40; PULSE 72; RESP 18; TEMP 36.6; O2SAT 93
[2023-12-16] MEDS: 0.9 % SODIUM CHLORIDE 1,000 ML 1000 ML IV (14:35)
[2023-12-16 16:30] LABS: Glucometer 142 mg/dL (74-106)
[2023-12-16 19:42] VITALS: BP 104/44; TEMP 36.8; O2SAT 92
[2023-12-16] MEDS: OXYBUTYNIN CHLORIDE 5 MG TAB XL 10 MG PO (22:02)
[2023-12-16 22:06] LABS: Glucometer 119 mg/dL (74-106)
[2023-12-17 04:00] VITALS: BP 108/67; PULSE 79; RESP 16; TEMP 37.1; O2SAT 91
[2023-12-17] MEDS: METRONIDAZOLE/SODIUM CHLORIDE 500 MG/100 ML PREMIX 100 MG IV ×3 (05:01→23:09)
[2023-12-17] MEDS: HYOSCYAMINE SULFATE 0.125 MG TAB.SUBL SL ×4 (05:01→21:21)
[2023-12-17 05:02] LABS: Basophils Percent Auto 0.5 % (0.2-2.0); Eosinophils Percent Auto 0.5 % (0.9-7.0); Hematocrit 32.5 % (36.0-48.0); Hemoglobin 9.7 g/dL (12.0-16.0); Immature Granulocytes Abs Auto 0.02 10^3/uL (0.00-0.03); Immature Granulocytes Pct Auto 0.3 % (0.0-0.5); Lymphocytes Absolute Auto 1.5 10^3/uL (1.2-3.8); Mean Corpuscular HGB Conc 29.8 g/dL (29.9-35.2); Mean Corpuscular Hemoglobin 30.8 pg (26.7-34.0); Mean Corpuscular Volume 103.2 fL (81.0-99.0); Monocytes Absolute Auto 0.8 10^3/uL (0.3-0.8); Monocytes Percent Auto 12.8 % (1.7-12.0); Neutrophils Absolute Auto 3.6 10^3/uL (1.4-6.5); Neutrophils Percent Auto 60.9 % (43.0-75.0); Platelet Count 160 10^3/uL (150-450); Red Blood Count 3.15 10^6/uL (4.20-5.40); Red Cell Distribution Width 13.1 % (11.0-15.0); White Blood Count 5.9 10^3/uL (4.0-11.0)
[2023-12-17 05:28] LABS: Erythrocyte Sedimentation Rate 5 mm/hr (<=30)
[2023-12-17 05:48] LABS: Alanine Aminotransferase 81 U/L (14-59); Albumin Globulin Ratio 0.9; Albumin Level 2.5 g/dL (3.4-5.0); Alkaline Phosphatase 47 U/L (46-116); Anion Gap 15.4; Aspartate Amino Transferase 72 U/L (15-37); BUN Creatinine Ratio 29.3; Bilirubin Total 0.6 mg/dL (0.2-1.0); Calcium 8.6 mg/dL (8.5-10.1); Carbon Dioxide 18.7 mmol/L (21.0-32.0); Chloride 111 mmol/L (98-107); Estimated GFR (African America 51 (>=60); Estimated GFR (Non-African Ame 42 (>=60); Globulin 2.7 g/dL; Glucose 106 mg/dL (74-106); Potassium 4.1 mmol/L (3.5-5.1); Sodium 141 mmol/L (136-145); Total Protein 5.2 g/dL (6.4-8.2)
[2023-12-17 05:56] LABS: Magnesium 1.7 mg/dL (1.8-2.4); Troponin I High Sensitivity 18.6 pg/mL (4.0-51.3)
[2023-12-17 09:00] VITALS: BP 115/72
--- NOTE | 2023-12-17 09:11 | CT_ITS ---
[address] [address] Patient Name: ABDON OROZCO MRN: [id number] date: 1945 Sex: F Assigned Patient Location: [place] Current Patient Location: [place] Accession/Order Number: [id number] Exam Date: 12/17/2023 10:32 Report Date: 12/17/2023 12:04 At the request of: BEN MATHUR Procedure: CT abdomen pelvis w con CT abdomen pelvis w con, 12/17/2023 10:32 AM EST INDICATION: Increasing abd pain COMPARISON: CT of the abdomen and pelvis 12/15/2023 TECHNIQUE: Axial images of the abdomen and pelvis were obtained after the administration of IV contrast. Multiplanar reformatted images were generated and reviewed as needed. Dose reduction techniques were achieved by using automated exposure control and/or adjustment of mA and/or kV according to patient size and/or use of iterative reconstruction technique. FINDINGS: Subsegmental atelectasis at the lung bases bilaterally. No effusion. Cholecystectomy. Liver, pancreas, spleen and adrenals unremarkable. Symmetric nephrograms without evidence of obstruction. Subcentimeter hypodensity upper pole right kidney, too small to characterize. No urolithiasis. No urinary bladder wall thickening or perivesicular fat stranding. Hysterectomy. No adnexal mass. No aortic aneurysm. No bowel obstruction. Colonic diverticulosis. Bowel wall thickening with mild adjacent fat stranding distal transverse, descending and sigmoid colon. Bowel wall thickening with adjacent fat stranding and small amount of adjacent fluid in the sigmoid mesial colon. No pneumatosis or pneumoperitoneum. No mesenteric or retroperitoneal lymphadenopathy. No acute fracture. Spondylosis lumbar spine. CT/CT abdomen pelvis w con IMPRESSION: 1. Redemonstration of inflammatory versus infectious colitis involving the distal transverse, descending and sigmoid colon. Significant interval increase in inflammation involving the sigmoid colon may represent interval development of superimposed sigmoid diverticulitis. No bowel perforation or abscess. Electronically authenticated by: VANDANA PRUETT Date: 12/17/2023 12:04
--- NOTE | 2023-12-17 09:17 | P.PN_ITS ---
Progress Note: Subjective Subjective Interval history: She feels her abdominal pain is about the same, diarrhea improving. Strength somewhat improved. Exam Constitutional Vital Signs, click to edit/add: Last Vital Signs Temp 98.8 F 12/17/23 04:00 Pulse 79 12/17/23 04:00 Resp 16 12/17/23 04:00 BP 108/67 12/17/23 04:00 Pulse Ox 91 L 12/17/23 04:00 O2 Del Method Room Air 12/17/23 04:00 Documenting provider has reviewed patient's vital signs: yes Common normals: apparent distress (mild - mod painful distress) HENMT Common normals: oral mucous membranes not moist Respiratory Common normals: normal respiratory effort and no retractions Cardio Common normals: regular rate and regular rhythm GI Common normals: soft to palpation; tender Palpation: tender (More in LLQ) and rebound tenderness present (Unchanged from previous day, pain somewhat worse in right lower quadrant) Extremity Common normals: normal to inspection (No edema) Progress Note: Objective Labs Labs: Short CBC 12/17/23 Range/Units 04:14 WBC 5.9 (4.0-11.0) 10^3/uL Hgb 9.7 L (12.0-16.0) g/dL Hct 32.5 L (36.0-48.0) % Plt Count 160 (150-450) 10^3/uL BMP 12/17/23 04:14 Sodium 141 Potassium 4.1 Chloride 111 H Carbon Dioxide 18.7 L BUN 36.0 H Creatinine 1.23 H Glucose 106 Calcium 8.6 Liver Function 12/17/23 Range/Units 04:14 Total Bilirubin 0.6 (0.2-1.0) mg/dL AST 72 H (15-37) U/L ALT 81 H (14-59) U/L Alkaline Phosphatase 47 (46-116) U/L Albumin 2.5 L (3.4-5.0) g/dL Progress Note: A&P Assessment and Plan (1) Dehydration: (2) Hypertension: (3) Type 2 diabetes mellitus: Plan Acute abd pain with colitis noted on CT -patient currently on antibiotics. White blood cell count is normal but having increasing abdominal tenderness to palpation. Pain worse in right lower quadrant. Repeat CT scan able to use IV contrast with creatinine much improved Hypotension yesterday-improved with fluid bolus. Likely related to the situation as above Iron deficiency anemia as well as anemia of acute blood loss. Hemoccult positive.-monitor to her daily-down somewhat today. Acute renal failure - baseline creatinine of .96 - Creat up to 2.45 - 2.5 X above baseline -creatinine improved today but still 25% above baseline Elevated BNP. This is likely related to her kidney function although could be results of the fluids given. She needs continued fluid hydration. She her lung exam is clear and she has no peripheral edema. Will continue to monitor NIDDM - cont with meds plus insulin ss CAD - check BNP HST in am Elevated LFT - may need liver u/s-improved somewhat today. Hypothyroidism - recent labs were fine Moderate protein calorie malnutrition-diet supplement Continued need for slow rehydration, abdominal pain not improving, repeating CT scan. Patient likely here at least 2 more midnights ?
[2023-12-17] MEDS: PANTOPRAZOLE SODIUM 40 MG VIAL IV (09:21)
[2023-12-17] MEDS: LEVOTHYROXINE SODIUM 88 MCG TABLET PO (09:22)
[2023-12-17] MEDS: CANAGLIFLOZIN 100 MG TABLET PO (09:22)
[2023-12-17] MEDS: LIOTHYRONINE SODIUM 25 MCG TABLET PO (09:22)
[2023-12-17] MEDS: FENOFIBRATE 54 MG TABLET 108 MG PO (09:22)
[2023-12-17] MEDS: CIPROFLOXACIN IN 5 % DEXTROSE 400 MG/200 ML PIGGYBACK 200 MG IV ×2 (09:23→21:21)
[2023-12-17] MEDS: ASPIRIN 81 MG TABLET.DR PO (09:23)
[2023-12-17] MEDS: APIXABAN 5 MG TABLET PO ×2 (11:26→23:18)
[2023-12-17] MEDS: METRONIDAZOLE/SODIUM CHLORIDE 500 MG/100 ML PREMIX 200 MG IV (11:26)
[2023-12-17] MEDS: MAGNESIUM OXIDE 400 MG TABLET PO (11:26)
[2023-12-17 11:27] LABS: Glucometer 164 mg/dL (74-106)
[2023-12-17 14:00] VITALS: BP 92/48; PULSE 70; RESP 18; TEMP 36.7; O2SAT 94
[2023-12-17 16:18] LABS: Glucometer 89 mg/dL (74-106)
[2023-12-17] MEDS: 0.9 % SODIUM CHLORIDE 1,000 ML 100 ML IV (18:18)
[2023-12-17] MEDS: L. ACIDOPHILUS/L.BULGARICUS 1 PACKET GRAN.PACK PO (21:21)
[2023-12-17] MEDS: ATORVASTATIN CALCIUM 40 MG TABLET PO (21:21)
[2023-12-17] MEDS: ENSURE HP 237 ML LIQUID PO (21:25)
[2023-12-17] MEDS: OXYBUTYNIN CHLORIDE 5 MG TAB XL 10 MG PO (21:25)
[2023-12-17 21:29] LABS: Glucometer 112 mg/dL (74-106)
[2023-12-17 21:38] VITALS: BP 111/64; PULSE 76; RESP 16; TEMP 36.7; O2SAT 94
[2023-12-18] MEDS: HYOSCYAMINE SULFATE 0.125 MG TAB.SUBL SL ×2 (05:07→20:33)
[2023-12-18] MEDS: METRONIDAZOLE/SODIUM CHLORIDE 500 MG/100 ML PREMIX 100 MG IV (05:14)
[2023-12-18 05:15] VITALS: BP 109/65; PULSE 70; RESP 20; TEMP 36.9; O2SAT 92
[2023-12-18 05:38] LABS: Basophils Percent Auto 0.4 % (0.2-2.0); Eosinophils Absolute Auto 0.2 10^3/uL (0.0-0.7); Eosinophils Percent Auto 3.5 % (0.9-7.0); Hematocrit 31.9 % (36.0-48.0); Hemoglobin 9.7 g/dL (12.0-16.0); Immature Granulocytes Abs Auto 0.01 10^3/uL (0.00-0.03); Immature Granulocytes Pct Auto 0.2 % (0.0-0.5); Lymphocytes Absolute Auto 1.8 10^3/uL (1.2-3.8); Lymphocytes Percent Auto 36.5 % (20.5-60.0); Mean Corpuscular HGB Conc 30.4 g/dL (29.9-35.2); Mean Corpuscular Volume 101.9 fL (81.0-99.0); Mean Platelet Volume 11.8 fL (9.5-13.5); Monocytes Absolute Auto 0.6 10^3/uL (0.3-0.8); Monocytes Percent Auto 13.1 % (1.7-12.0); Neutrophils Absolute Auto 2.2 10^3/uL (1.4-6.5); Neutrophils Percent Auto 46.3 % (43.0-75.0); Platelet Count 168 10^3/uL (150-450); Red Blood Count 3.13 10^6/uL (4.20-5.40); Red Cell Distribution Width 13.2 % (11.0-15.0); White Blood Count 4.8 10^3/uL (4.0-11.0)
[2023-12-18 05:51] LABS: Alanine Aminotransferase 76 U/L (14-59); Albumin Level 2.6 g/dL (3.4-5.0); Alkaline Phosphatase 44 U/L (46-116); Anion Gap 14.1; Aspartate Amino Transferase 65 U/L (15-37); BUN Creatinine Ratio 17.5; Bilirubin Total 0.5 mg/dL (0.2-1.0); Calcium 8.9 mg/dL (8.5-10.1); Carbon Dioxide 21.9 mmol/L (21.0-32.0); Chloride 110 mmol/L (98-107); Estimated GFR (African America >60 (>=60); Estimated GFR (Non-African Ame 52 (>=60); Globulin 2.7 g/dL; Glucose 110 mg/dL (74-106); Sodium 142 mmol/L (136-145); Total Protein 5.3 g/dL (6.4-8.2)
[2023-12-18 05:59] LABS: Magnesium 1.8 mg/dL (1.8-2.4); Troponin I High Sensitivity 13.7 pg/mL (4.0-51.3)
[2023-12-18 06:08] LABS: Erythrocyte Sedimentation Rate 9 mm/hr (<=30)
[2023-12-18 07:33] VITALS: PULSE 79; RESP 16
--- NOTE | 2023-12-18 07:38 | P.PN_ITS ---
Progress Note: Subjective Subjective Interval history: Pain persisting per patient. Somewhat difficulty with her breathing this morning as well. Exam Constitutional Vital Signs, click to edit/add: Last Vital Signs Temp 98.4 F 12/18/23 05:15 Pulse 79 12/18/23 07:33 Resp 16 12/18/23 07:33 BP 109/65 12/18/23 05:15 Pulse Ox 92 L 12/18/23 05:15 O2 Del Method Room Air 12/18/23 05:15 Documenting provider has reviewed patient's vital signs: yes Common normals: apparent distress (mild - mod painful distress) [facility] Common normals: oral mucous membranes not moist Chest Common normals: inspection of chest normal Respiratory Common normals: normal respiratory effort and no retractions Auscultation: no rales Cardio Common normals: regular rate and regular rhythm GI Common normals: soft to palpation; tender Palpation: tender (More in LLQ) and rebound tenderness present (Rebound tenderness persisting) Extremity Common normals: abnormal to inspection (Trace edema) Progress Note: Objective Labs Labs: Short CBC 12/18/23 Range/Units 04:53 WBC 4.8 (4.0-11.0) 10^3/uL Hgb 9.7 L (12.0-16.0) g/dL Hct 31.9 L (36.0-48.0) % Plt Count 168 (150-450) 10^3/uL BMP 12/18/23 04:53 Sodium 142 Potassium 4.0 Chloride 110 H Carbon Dioxide 21.9 BUN 18.0 Creatinine 1.03 H Glucose 110 H Calcium 8.9 Liver Function 12/18/23 Range/Units 04:53 Total Bilirubin 0.5 (0.2-1.0) mg/dL AST 65 H (15-37) U/L ALT 76 H (14-59) U/L Alkaline Phosphatase 44 L (46-116) U/L Albumin 2.6 L (3.4-5.0) g/dL Progress Note: A&P Assessment and Plan (1) Dehydration: (2) Hypertension: (3) Type 2 diabetes mellitus: Plan Acute abd pain with colitis noted on CT -repeat CT scan from yesterday showed more of a diverticulitis pattern. Typical treatment with Cipro and Flagyl appears to not be effective. Patient will has rebound tenderness. Will change patient to Zosyn today. Patient remains with a normal white blood cell count likely secondary to her age and inability to monitor immune response. Likely 2 more days of IV antibiotics with the change in antibiotics today. Hypotension-stable, need to keep blood pressure low due to the history of heart failure Iron deficiency anemia as well as anemia of acute blood loss. Hemoccult po sitive. Blood count stable from yesterday Acute renal failure - baseline creatinine of .96 - Creat up to 2.45 - 2.5 X above baseline -creatinine back to baseline today. Elevated BNP. Further elevated today. Now with some peripheral edema and some mild dyspnea. Will give 1 dose of Lasix and her oral Aldactone. Saline lock today. NIDDM - cont with meds plus insulin ss CAD -no chest pain Elevated LFT --continues to improve Hypothyroidism - recent labs were fine Moderate protein calorie malnutrition-diet supplement Patient failed initial antibiotic therapy for diverticulitis. Changing IV antibiotics today. Likely 2 more day hospitalization. ?
[2023-12-18 07:42] LABS: Glucometer 93 mg/dL (74-106)
[2023-12-18 07:55] VITALS: BP 120/75; PULSE 79; RESP 16; TEMP 36.6; O2SAT 96
--- NOTE | 2023-12-18 07:56 | CM.NOTE ---
Important Message From Medicare discussed with pt, pt verbalizes understanding and signs paper. Original given to pt and copy placed on pt's chart.
[2023-12-18] MEDS: APIXABAN 5 MG TABLET PO ×2 (08:17→20:33)
[2023-12-18] MEDS: SPIRONOLACTONE 25 MG TABLET PO (08:17)
[2023-12-18] MEDS: FUROSEMIDE 40 MG/4 ML VIAL IVP (08:17)
[2023-12-18] MEDS: FENOFIBRATE 54 MG TABLET 108 MG PO (08:18)
[2023-12-18] MEDS: CANAGLIFLOZIN 100 MG TABLET PO (08:18)
[2023-12-18] MEDS: ASPIRIN 81 MG TABLET.DR PO (08:18)
[2023-12-18] MEDS: PIPERACILLIN SODIUM/TAZOBACTAM 3.375 GM in 0.9 % SODIUM CHLORIDE 50 ML IV ×2 (08:18→17:37)
[2023-12-18] MEDS: SUCRALFATE 1 GM TABLET PO ×4 (08:18→20:33)
[2023-12-18] MEDS: ENSURE HP 237 ML LIQUID PO ×2 (08:19→20:33)
[2023-12-18] MEDS: LEVOTHYROXINE SODIUM 88 MCG TABLET PO (08:19)
[2023-12-18] MEDS: LIOTHYRONINE SODIUM 25 MCG TABLET PO (08:19)
[2023-12-18] MEDS: MAGNESIUM OXIDE 400 MG TABLET PO (08:19)
[2023-12-18] MEDS: L. ACIDOPHILUS/L.BULGARICUS 1 PACKET GRAN.PACK PO ×2 (08:19→20:33)
[2023-12-18] MEDS: PANTOPRAZOLE SODIUM 40 MG VIAL IV (08:21)
[2023-12-18] MEDS: METOPROLOL SUCCINATE 25 MG TAB.ER.24H 12.5 MG PO (08:21)
[2023-12-18] MEDS: ONDANSETRON PF 4 MG/2 ML VIAL IV (10:31)
[2023-12-18 10:54] LABS: Glucometer 133 mg/dL (74-106)
--- NOTE | 2023-12-18 13:07 | SWNOTE1 ---
SW checked PT note and recommended pt return home, no needs. SW to follow as needed.
[2023-12-18 13:51] VITALS: BP 109/71; PULSE 80; RESP 14; TEMP 36.6; O2SAT 96
[2023-12-18 16:29] LABS: Glucometer 180 mg/dL (74-106)
[2023-12-18 19:48] VITALS: PULSE 79; RESP 14
[2023-12-18] MEDS: OXYBUTYNIN CHLORIDE 5 MG TAB XL 10 MG PO (20:33)
[2023-12-18] MEDS: ATORVASTATIN CALCIUM 40 MG TABLET PO (20:33)
[2023-12-18] MEDS: INSULIN ASPART 300 UNIT/3 ML PEN SUBQ (21:27)
[2023-12-18 21:35] LABS: Glucometer 216 mg/dL (74-106)
[2023-12-18 22:11] VITALS: BP 94/58; PULSE 61; RESP 18; TEMP 36.5; O2SAT 92
[2023-12-19] MEDS: PIPERACILLIN SODIUM/TAZOBACTAM 3.375 GM in 0.9 % SODIUM CHLORIDE 50 ML IV ×2 (02:41→11:33)
[2023-12-19 04:04] VITALS: BP 120/67; PULSE 70; RESP 18; TEMP 36.8; O2SAT 93
[2023-12-19] MEDS: HYOSCYAMINE SULFATE 0.125 MG TAB.SUBL SL ×2 (04:42→11:33)
[2023-12-19 05:34] LABS: Basophils Percent Auto 0.6 % (0.2-2.0); Eosinophils Absolute Auto 0.2 10^3/uL (0.0-0.7); Eosinophils Percent Auto 5.6 % (0.9-7.0); Hematocrit 32.8 % (36.0-48.0); Hemoglobin 9.9 g/dL (12.0-16.0); Immature Granulocytes Abs Auto 0.01 10^3/uL (0.00-0.03); Immature Granulocytes Pct Auto 0.3 % (0.0-0.5); Lymphocytes Absolute Auto 1.4 10^3/uL (1.2-3.8); Lymphocytes Percent Auto 39.2 % (20.5-60.0); Mean Corpuscular HGB Conc 30.2 g/dL (29.9-35.2); Mean Corpuscular Hemoglobin 30.8 pg (26.7-34.0); Mean Corpuscular Volume 102.2 fL (81.0-99.0); Mean Platelet Volume 12.2 fL (9.5-13.5); Monocytes Absolute Auto 0.6 10^3/uL (0.3-0.8); Monocytes Percent Auto 16.3 % (1.7-12.0); Neutrophils Absolute Auto 1.4 10^3/uL (1.4-6.5); Platelet Count 160 10^3/uL (150-450); Red Blood Count 3.21 10^6/uL (4.20-5.40); Red Cell Distribution Width 13.1 % (11.0-15.0); White Blood Count 3.6 10^3/uL (4.0-11.0)
[2023-12-19 05:57] LABS: Alanine Aminotransferase 76 U/L (14-59); Albumin Globulin Ratio 0.8; Albumin Level 2.5 g/dL (3.4-5.0); Alkaline Phosphatase 43 U/L (46-116); Anion Gap 11.3; Aspartate Amino Transferase 73 U/L (15-37); BUN Creatinine Ratio 14.8; Bilirubin Total 0.5 mg/dL (0.2-1.0); Carbon Dioxide 27.4 mmol/L (21.0-32.0); Chloride 106 mmol/L (98-107); Estimated GFR (African America 60 (>=60); Estimated GFR (Non-African Ame 49 (>=60); Glucose 105 mg/dL (74-106); Magnesium 1.7 mg/dL (1.8-2.4); Potassium 3.7 mmol/L (3.5-5.1); Sodium 141 mmol/L (136-145); Total Protein 5.5 g/dL (6.4-8.2)
[2023-12-19 06:07] LABS: Erythrocyte Sedimentation Rate 9 mm/hr (<=30)
[2023-12-19] MEDS: LIOTHYRONINE SODIUM 25 MCG TABLET PO (08:27)
[2023-12-19] MEDS: FENOFIBRATE 54 MG TABLET 108 MG PO (08:27)
[2023-12-19] MEDS: SUCRALFATE 1 GM TABLET PO ×2 (08:27→11:33)
[2023-12-19] MEDS: L. ACIDOPHILUS/L.BULGARICUS 1 PACKET GRAN.PACK PO (08:27)
[2023-12-19] MEDS: CANAGLIFLOZIN 100 MG TABLET PO (08:27)
[2023-12-19] MEDS: METOPROLOL SUCCINATE 25 MG TAB.ER.24H 12.5 MG PO (08:27)
[2023-12-19] MEDS: LEVOTHYROXINE SODIUM 88 MCG TABLET PO (08:27)
[2023-12-19] MEDS: ASPIRIN 81 MG TABLET.DR PO (08:27)
[2023-12-19] MEDS: MAGNESIUM OXIDE 400 MG TABLET PO (08:28)
[2023-12-19] MEDS: ENSURE HP 237 ML LIQUID PO (08:28)
[2023-12-19] MEDS: PANTOPRAZOLE SODIUM 40 MG VIAL IV (08:32)
[2023-12-19] MEDS: APIXABAN 5 MG TABLET PO (08:32)
--- NOTE | 2023-12-19 08:41 | CM.NOTE ---
Rounds made with sridhar Rose for discharge after 1800 antibiotics today.
--- NOTE | 2023-12-19 08:47 | P.DS_ITS ---
DS: Providers Provider Date of admission: 12/15/23 23:55 Primary care physician: Toni Kraft MD Consults: 12/16/23 Consult to Dietitian Routine Reason For Exam: wt. loss Reason for consultation: wt. loss poor appetite Has provider been notified: Yes 12/18/23 07:35 Physical Therapy Eval and Treat Routine Reason for consultation: eval Has provider been notified: No DS: Diagnosis Discharge Diagnosis (1) Dehydration: (2) Hypertension: (3) Type 2 diabetes mellitus: Plan Acute abd pain with colitis noted on CT -repeat CT scan from yesterday showed more of a diverticulitis pattern Hypotension Iron deficiency anemia as well as anemia of acute blood loss. Acute renal failure Elevated BNP. NIDDM CAD Elevated LFT Hypothyroidism Moderate protein calorie malnutrition DS: Summary Hospital Course Hospital Course: Patient was seen and evaluated in the emergency room with increasing abdominal pain. CT scan suggested colitis. Patient was initially placed on Cipro and Flagyl. Her condition did not improve after [address] scan showed diverticulitis with more wall invasion. Antibiotics were changed yesterday. She does feel improved today. She does still have some significant tenderness however but she would like to try it at home. I recommended she get as many doses in with the IV Zosyn today. Can be discharged later today and then follow-up with me in the office in 2 days. Will still likely need outpatient endoscopy. Endoscopy held during admission due to the severity of her illness and risk of perforation. Patient also an episode of fluid overload while admitted this is secondary to her hydrating her from acute renal failure. Creatinine was 2.5 times normal. Her creatinine is returned to baseline today. She was given 1 dose of diuretic yesterday. Will have her resume her previous doses except holding the Aldactone. Patient not back to baseline. Wants to try it at home. I will see patient in office in 2 days. Time Spent with Patient Time attestation: Total time spent providing and/or coordinating discharge services: Exam Constitutional Vital Signs, click to edit/add: Last Vital Signs Temp 98.2 F 12/19/23 04:04 Pulse 70 12/19/23 04:04 Resp 18 12/19/23 04:04 BP 120/67 12/19/23 04:04 Pulse Ox 93 L 12/19/23 04:04 O2 Del Method Room Air 12/19/23 04:04 Documenting provider has reviewed patient's vital signs: yes Common normals: apparent distress (mild - mod painful distress) [facility] Common normals: oral mucous membranes not moist Chest Common normals: inspection of chest normal Respiratory Common normals: normal respiratory effort and no retractions Auscultation: no rales Cardio Common normals: regular rate and regular rhythm GI Common normals: soft to palpation; tender Palpation: tender (More in LLQ) and rebound tenderness present (Rebound tenderness persisting) Extremity Common normals: abnormal to inspection (Trace edema) DS: Data Data Completed and Pending Labs on day of discharge: Labs from last 24 hours 12/19/23 12/18/23 12/18/23 04:39 21:23 16:28 WBC 3.6 L RBC 3.21 L Hgb 9.9 L Hct 32.8 L MCV 102.2 H MCH 30.8 MCHC 30.2 RDW 13.1 Plt Count 160 MPV 12.2 Neut % (Auto) 38.0 L Lymph % (Auto) 39.2 [place] % (Auto) 16.3 H Eos % (Auto) 5.6 Baso % (Auto) 0.6 Neut # (Auto) 1.4 Lymph # (Auto) 1.4 [place] # (Auto) 0.6 Eos # (Auto) 0.2 Baso # (Auto) 0.0 Abs Immat Gran (auto) 0.01 Imm/Tot Granulo (auto) 0.3 ESR 9 Sodium 141 Potassium 3.7 Chloride 106 Carbon Dioxide 27.4 Anion Gap 11.3 BUN 16.0 Creatinine 1.08 H Est GFR ( Amer) 60 Est GFR (Non-Af Amer) 49 L BUN/Creatinine Ratio 14.8 Glucose 105 Calcium 9.0 Magnesium 1.7 L Total Bilirubin 0.5 AST 73 H ALT 76 H Alkaline Phosphatase 43 L Troponin I High Sens 14.0 NT-Pro-B Natriuret Pep 4229.0 H* Total Protein 5.5 L Albumin 2.5 L Globulin 3.0 Albumin/Globulin Ratio 0.8 POC Glucose 216 H 180 H 12/18/23 10:53 WBC RBC Hgb Hct MCV MCH MCHC RDW Plt Count MPV Neut % (Auto) Lymph % (Auto) [place] % (Auto) Eos % (Auto) Baso % (Auto) Neut # (Auto) Lymph # (Auto) [place] # (Auto) Eos # (Auto) Baso # (Auto) Abs Immat Gran (auto) Imm/Tot Granulo (auto) ESR Sodium Potassium Chloride Carbon Dioxide Anion Gap BUN Creatinine Est GFR ( Amer) Est GFR (Non-Af Amer) BUN/Creatinine Ratio Glucose Calcium Magnesium Total Bilirubin AST ALT Alkaline Phosphatase Troponin I High Sens NT-Pro-B Natriuret Pep Total Protein Albumin Globulin Albumin/Globulin Ratio POC Glucose 133 H Discharge Plan Discharge Disposition: Home, Self-Care Condition: Good Discharge Medications: New atorvastatin 40 mg Tablet 40 mg PO QHS Qty: 30 11RF amoxicillin-pot clavulanate 875-125 mg tablet 1 tab PO Q12H Qty: 30 0RF Rx Instructions: with extra amoxicillin amoxicillin 500 mg tablet 1,000 mg PO Q12H Qty: 60 0RF Continued Eliquis 5 mg tablet 5 mg PO Q12H Patient Comments: taken 12/15/23 in the morning. furosemide 40 mg tablet 40 mg PO DAILY Patient Comments: taken 12/15/23 in the morning. levothyroxine 88 mcg tablet 88 mcg PO DAILY Patient Comments: taken 12/15/23 in the morning. liothyronine 25 mcg tablet 25 mcg PO DAILY Patient Comments: taken 12/15/23 in the morning. metoprolol succinate 25 mg tablet extended release 24 hr 12.5 mg PO .morning aspirin 81 mg tablet,delayed release (DR/EC) 81 mg PO .morning Patient Comments: taken 12/15/23 in the morning. fenofibrate micronized 134 mg capsule 134 mg PO .in the morning. Patient Comments: taken 12/15/23 in the morning. lisinopril 5 mg tablet 5 mg PO DAILY Patient Comments: taken 12/15/23 in the morning. potassium chloride 10 mEq tablet,ER particles/crystals 20 meq PO BID Patient Comments: taken on 12/15/23 in the morning. atorvastatin [Lipitor] 40 mg tablet 40 mg PO .evening Patient Comments: taken 12/14/23 in the evening. oxybutynin chloride 10 mg tablet extended release 24hr 10 mg PO .evening Patient Comments: taken on 12/14/23 in the evening. Jardiance 10 mg tablet 10 mg PO DAILY Patient Comments: taken 12/15/23 in the morning. Discontinued diclofenac sodium 75 mg tablet,delayed release (DR/EC) 75 mg PO DAILY Patient Comments: taken 12/15/23 in the morning. spironolactone 25 mg tablet 25 mg PO .morning Patient Comments: taken on 12/15/23 in the morning. Activity: resume usual activities as tolerated Diet: advance to your usual diet Patient Instructions: Amoxicillin/Clavulanate Potassium (By mouth), Atorvastatin (By mouth), Colitis (ED) Forms: Portal Instructions Follow Up Appointments: @ 9:15am with Dr. Kraft [phone] Discharge Date/Time: 12/19/23 14:13
--- NOTE | 2023-12-19 09:51 | PT.DAILY ---
Physical Therapy Daily Note PT Daily Note/Assess Start: 12/18/23 10:38 Freq: Status: Active Protocol: Document 12/19/23 09:25 ESDEE (Rec: 12/19/23 09:51 ARIELLEXIE [id number]) Physical Therapy Daily Note/Assessment Time In/Time Out Time In 09:25 Time Out 09:37 Subjective Subjective Denies pain. Reports up independently in room with no issues. Therapeutic Exercise Time Therapeutic Exercise Minutes (minutes) 10 Therapeutic Exercise Units 1 Therapeutic Exercise Treatment Therapeutic Exercise Treatment Issued written handout of standing HEP. Reviewed with patient and patient is able to safely demonstrate 10 reps of each. Denies questions with HEP as well. Therapeutic Activity Treatment Chair Transfer Ability Independent Therapeutic Activity Comments Gait Independent without AD. Total Physical Therapy Time Total Therapy Minutes 10 Total Physical Therapy Units 1 Summary Daily Note Summary Improving strength. Issued written handout of HEP and patient demonstrates good safety and denies questions.
[2023-12-19 11:45] LABS: Glucometer 118 mg/dL (74-106)
--- NOTE | 2023-12-20 15:41 | CM.DCFOLLOWU ---
Person spoke with: juli How are you feeling? Went back to ER today for nose bleed but everything checked out ok How is your pain? Pain is better Did you understand your discharge instructions? Yes Do you have any questions about your discharge instructions? No Were you given any prescriptions at discharge? Yes Were you able to get your prescriptions filled? Yes Do you understand how to take your medications as ordered? Yes Do you have any questions about your follow up appointment and do you plan to keep your follow up appointment? It was moved up to tomorrow since I came back to ER- yes I will go Is there anything else that you would like to discuss? No Questions/Comments/Concerns/Other:
== END 2023-12-19 14:13 | disposition home or self-care (01) | DRG 641 ==
LOC: ER 22:44 → MS 12-16 00:01
PROVIDERS: Internal Medicine; Physician Assistant; Registered Nurse; Admitting Provider Family Medicine; Emergency Provider Emergency Medicine; PCP Family Medicine; Visit Provider Family Medicine
DX: E86.0 Dehydration (principal); N17.9 Acute kidney failure, unspecified; I50.42 Chronic combined systolic (congestive) and diastolic (congestive) heart failure; D62 Acute posthemorrhagic anemia; E44.0 Moderate protein-calorie malnutrition; K57.32 Diverticulitis of large intestine without perforation or abscess without bleeding; K52.9 Noninfective gastroenteritis and colitis, unspecified; E11.9 Type 2 diabetes mellitus without complications; I25.10 Atherosclerotic heart disease of native coronary artery without angina pectoris; E03.9 Hypothyroidism, unspecified; R79.89 Other specified abnormal findings of blood chemistry; I11.0 Hypertensive heart disease with heart failure; I48.0 Paroxysmal atrial fibrillation; J44.9 Chronic obstructive pulmonary disease, unspecified; I25.2 Old myocardial infarction; Z96.611 Presence of right artificial shoulder joint; Z96.659 Presence of unspecified artificial knee joint; Z79.899 Other long term (current) drug therapy; Z79.82 Long term (current) use of aspirin; Z79.890 Hormone replacement therapy; Z90.710 Acquired absence of both cervix and uterus; R10.9 Unspecified abdominal pain; Z79.01 Long term (current) use of anticoagulants; Z79.84 Long term (current) use of oral hypoglycemic drugs; Z87.891 Personal history of nicotine dependence; Z80.9 Family history of malignant neoplasm, unspecified; Z83.3 Family history of diabetes mellitus; Z82.49 Family history of ischemic heart disease and other diseases of the circulatory system; I95.9 Hypotension, unspecified; D50.9 Iron deficiency anemia, unspecified; R19.5 Other fecal abnormalities; Z68.29 Body mass index [BMI] 29.0-29.9, adult
CPT/HCPCS: 36415; 71045; 74177; 80048; 80053; 80076; 81001; 81003; 82140; 82150; 82948; 83605; 83690; 83735; 83880; 84436; 84443; 84481; 84484; 85025; 85610; 85652; 87086; 87493; 87507; 93005; 96361; 96365; 96366; 96367; 96375; 96376; 97110; 97161; 99285; G0328; J0744; J1836; J1940; J2405; J2543; Q9966; Q9967

== ENCOUNTER 2023-12-20 10:05 | Emergency (ER) | payer MEDICARE, SELFPAY ==
[2023-12-20 10:06] VITALS: BP 142/96; PULSE 70; RESP 16; TEMP 36.7; O2SAT 99; BMI 29.3
[2023-12-20 10:12] VITALS: O2SAT 97
--- OUTSIDE RECORDS SUMMARY | 2023-12-20 10:21 | XMS_ITS | CCD ---
Author Name Unknown Address [address] [facility] [address] [place] [id number] Organization [facility] Care Team Providers Care Business Process Representative Name Role Phone DENZEL OHARA Admitting Unavailable [...] Care Unavailable HOY, DR CONTRERAS Consulting Unavailable NILL, Jax R Attending Unavailable Ben Kraft Referring Unavailable HAY, BETTY Referring Unavailable ERON, WHITLEY Admitting Unavailable BRAYDEN WALLIS Attending Unavailable GANGANNABELLA GONZALEZ Referring Unavailab le SAADIA MYLES Attending Unavailable KEATON MIMS Attending Unavailable STACEYGCHANGNI, ANNABELLA DAVIS Referring Unavailab le GANGWANI, ANNABELLA DAVIS Referring Unavailab le MERZA, NOORALDIN Referring Unavailable STACEYGANNABELLA GONZALEZ Referring Unavailab le PIRKL, BLANCHE Referring Unavailable Allergies Allergy Classification Reported Allergen(s) Allergy Type Date of Onset Reaction(s) Facility (1 source) Amino Acids Drug Allergy [facility] Repository (1 source) Sulfonamides (Antibiotic) Drug allergy (disorder) 6 [facility] Repository (1 source) Sulfonamides (Antibiotic); 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: [SULFA (SULFONAMIDE ANTIBIOTICS)] Propensity to adverse reactions to drug (disorder) 6 [facility] Repository Problems Active Problems Problem Classification [...] Test Name Value Interpretation Reference Range Facility 36on 12-15-2023 36 Please let her know her heart failure improved to normal which is great news. However, the pressures in her heart are elevated. Would like for her to increase her lasix to 40mg twice daily to try to help with this and get a follow-up BMP before her appt with Dr. Henry on 12/25/23. Thanks! Normal [facility] Telephoneon 12-15-2023 Telephone [id number] Rachel Orozco 1945 F Date Provider Department Center 12/15/2023 SAADIA TELLEZ [facility]. No family history on file [facility] Physician Referralon 024 Physician Referral [id number] 10 [id number] 0[facility] Physician Referral [id number] 06 [id number] [facility] Follow-Upon 10-26-2023 Follow-Up [id number] Rachel Orozco 1945 F Date Provider Department Center 10/26/2023 [facility] on [facility] Level of Service:31308 [place] OFFICE/OUTPATIENT ESTABLISHED MOD MDM 30 MIN Reason for Visit and Comments: Hospital Follow-up [832] Normal [facility] BASIC METABOLIC PANELon 12 Anion gap [Moles/Vol] 9 mmol/L Normal 7-20 [facility] Comment on above: Performed By: #### L [id number] ####[facility] ([facility] [place] [address] Calcium [Mass/Vol] 9.2 mg/dL Normal 8.6-10.3 [facility] Comment on above: Performed By: #### L [id number] ####[facility] ([facility] [place] [address] Chloride [Moles/Vol] 100 mmol/L Normal 98-107 [facility] Comment on above: Performed By: #### L [id number] ####[facility] ([facility])[address] [place] [address] CO2 [Moles/Vol] 35 mmol/L High 21- [facility] Comment on above: Performed By: #### L [id number] ####[facility] ([facility])[address] [facility] [address] Creatinine [Mass/Vol] 1.07 mg/dL Normal 0.60-1.20 [facility] Comment on above: Performed By: #### L [id number] ####[facility] ([facility] [place] [address] GLOMERULAR FILTRATION RATE ML/MIN/1.73 SQ M.PREDICTED 53.5 mL/min/1.73m*2 Low >60.0 [facility] Comment on above: Result Comment: [facility]???s estimated glomerular filtration rate (eGFR) will [...] of individuals. Performed By: #### L [id number] ####[facility] ([facility])[address] [place] [address] Glucose [Mass/Vol] 100 mg/dL Normal 70-100 [facility] Comment on above: Performed By: #### L [id number] ####[facility] ([facility])[address] [place] [address] Potassium [Moles/Vol] 3.7 mmol/L Normal 3.5-5.1 [facility] Comment on above: Performed By: #### L [id number] ####[facility] ([facility])[address] [place] [address] Sodium [Moles/Vol] 140 mmol/L Normal 136-145 [facility] Comment on above: Performed By: #### L [id number] ####[facility] ([facility])[address] [facility] [place] [address] Urea nitrogen [Mass/Vol] 43 mg/dL High 7-25 [facility] Comment on above: Performed By: #### L [id number] ####[facility] ([facility])[address] [place] [address] UREA NITROGEN/CREATININE (MASS RATIO) IN SER/PLAS 40.2 Normal [facility] Comment on above: Performed By: #### L [id number] ####[facility] ([facility])[address] [facility] [facility] [place] [address] CBCon 10-20-2023 Erythrocyte distribution width (RBC) [Ratio] 13.5 % Normal 11.5-15.0 [facility] Comment on above: Performed By: #### L [id number] ####[facility] ([facility])[address] [facility] [place] [facility] [place] [address] ERYTHROCYTE MEAN CORPUSCULAR HEMOGLOBIN CONCENTRATION (G/DL) BY AUTOMATED 32.8 g/dL Normal 32.0-35.0 [facility] Comment on above: Performed By: #### L [id number] ####[facility] ([facility])[address] [place], [place] [address] Hematocrit (Bld) [Volume fraction] 36.0 % Normal 36.0-48.0 [facility] Comment on above: Performed By: #### L [id number] ####[facility] ([facility])[address] [place] [address] Hemoglobin (Bld) [Mass/Vol] 11.8 g/dL Low 12.0-15.0 [facility] Comment on above: Performed By: #### L [id number] ####[facility] ([facility])[address] [place], [place] [address] MCH (RBC) [Entitic mass] 31.8 pg Normal 27.0-33.0 [facility] Comment on above: Performed By: #### L [id number] ####[facility] ([facility] [place], [place] [address] MCV (RBC) [Entitic vol] 97.0 fL Normal 82.0-98.0 [facility] Comment on above: Performed By: #### L [id number] ####[facility] ([facility] [place] [address] PLATELETS (10*3/UL) IN BLOOD AUTOMATED COUNT 239 10*3/uL Normal 150-400 [facility] Comment on above: Performed By: #### L [id number] ####[facility] ([facility])[address] [place], [place] [address] RBC (Bld) [#/Vol] 3.71 10*6/uL Low 3.80-5.00 [facility] Comment on above: Performed By: #### L [id number] ####[facility] ([facility])[address] [place], [place] [address] WBC (Bld) [#/Vol] 10.06 10*3/uL Normal 4.00-10.60 [facility] Comment on above: Performed By: #### L [id number] ####[facility] ([facility])[address] [place] [address] POCT GLUCOSE METER UNSOLICIT ED RESULTSon 10-20-2023 Glucose [Mass/Vol] 124 mg/dL High 70-105 [facility] Comment on above: Order Comment: Waive d Testing in the ED is performed under the ED CLIA certificate #[id number]. Result Comment: [email or web address] Performed By: #### L [id number] ####[facility] ([facility])[address] [place] [address] Glucose [Mass/Vol] 96 mg/dL Normal 70-105 [facility] Comment on above: Order Comment: Waive d Testing in the ED is performed under the ED CLIA certificate #[id number]. Result Comment: [email or web address] Performed By: #### L [id number] ####[facility] ([facility])[address] [place] [address] 30on 10-19-2023 30 The patient is Moderately [...] dysrhythmias or at baseline Outcome: Progressing Normal [facility] 30 Daily Case Managemen t Update [...] PT? Answer: discharge planning 10/19/23 1156 Normal [facility] 30 Problem: Pain - Adul t [...] and behaviors that affect risk of falls [place] fall precautions as indicated by assessment Educate patient/family on patient safety, including physical limitations Instruct patient to call for assistance with activity based on assessment Modify environment to reduce risk of injury Consider OT/PT consult to assist with strengthening/mobility Problem: Discharge Planning Goal: Discharge to home or other facility with appropriate resources Outcome: Progressing Flowsheets (Taken 10/19/2023 0745) Discharge to home or other facility with [...] maintained or improved Outcome: Progressing Flowsheets (Taken 10/19/2023 0745) Care Plan - Patient's Chronic Conditions and [...] room to hallway door 3x daily Normal [facility] 30 The patient is Moderately Stable [...] dysrhythmias or at baseline Outcome: Progressing Normal [facility] BASIC METABOLIC PANELon 10-06 Anion gap [Moles/Vol] 12 mmol/L Normal 7-20 [facility] Comment on above: Performed By: #### L [id number] #### [facility] ([facility]) [address] [place] [address] Calcium [Mass/Vol] 8.7 mg/dL Normal 8.6-10.3 [facility] Comment on above: Performed By: #### L [id number] #### [facility] ([facility]) [address] [address] Chloride [Moles/Vol] 99 mmol/L Normal 98-107 [facility] Comment on above: Performed By: #### L [id number] #### [facility] ([facility]) [address] [place] [address] CO2 [Moles/Vol] 30 mmol/L Normal 21-31 [facility] Comment on above: Performed By: #### L [id number] #### [facility] ([facility]) [address] [place] [address] Creatinine [Mass/Vol] 1.12 mg/dL Normal 0.60-1.20 [facility] Comment on above: Performed By: #### L [id number] #### [facility] ([facility]) [address] [place] [address] GLOMERULAR FILTRATION RATE ML/MIN/1.73 SQ M.PREDICTED 50.6 mL/min/1.73m*2 Low >60.0 [facility] Comment on above: Result Comment: [facility]???s estimated glomerular filtration rate (eGFR) will [...] individuals. Performed By: #### L [id number] #### [facility] ([facility]) [address] [place] [address] Glucose [Mass/Vol] 243 mg/dL High 70-100 [facility] Comment on above: Performed By: #### L [id number] #### [facility] ([facility]) [address] [place] [address] Potassium [Moles/Vol] 3.3 mmol/L Low 3.5-5.1 [facility] Comment on above: Performed By: #### L [id number] #### [facility] ([facility]) [address] [place] [address] Sodium [Moles/Vol] 138 mmol/L Normal 136-145 [facility] Comment on above: Performed By: #### L [id number] #### [facility] ([facility]) [address] [place] [address] Urea nitrogen [Mass/Vol] 40 mg/dL High 7-25 [facility] Comment on above: Performed By: #### L [id number] #### [facility] ([facility]) [address] [place] [address] UREA NITROGEN/CREATININE (MASS RATIO) IN SER/PLAS 35.7 Normal [facility] Comment on above: Performed By: #### L [id number] #### [facility] ([facility]) [address] [place] [address] MAGNESIUMon 10-19-2023 Magnesium [Mass/Vol] 1.6 mg/dL Low 1.9-2.7 [facility] Comment on above: Performed By: #### L [id number] #### [facility] ([facility]) [address] [place] [address] PHOSPHORUSon 10-19-2023 Magnesium [Mass/Vol] 3.3 mg/dL Normal 2.5-5.0 [facility] Comment on above: Performed By: #### L [id number] #### [facility] ([facility]) [address] [place] [address] POCT GLUCOSE METER UNSOLICIT ED RESULTSon 10-19-2023 Glucose [Mass/Vol] 252 mg/dL High 70-105 [facility] Comment on above: Order Comment: Waive d Testing in the ED is performed under the ED CLIA certificate #[id number]. Result Comment: [email or web address] in Performed By: #### L [id number] ####[facility] ([facility])[address] [place] [address] Glucose [Mass/Vol] 137 mg/dL High 70-105 [facility] Comment on above: Order Comment: Waive d Testing in the ED is performed under the ED CLIA certificate #[id number]. Result Comment: [email or web address] Performed By: #### L [id number] ####[facility] ([facility])[address] [place] [address] Glucose [Mass/Vol] 203 mg/dL High 70-105 [facility] Comment on above: Order Comment: Waive d Testing in the ED is performed under the ED CLIA certificate #[id number]. Result Comment: [email or web address] Performed By: #### L [id number] ####[facility] ([facility])[address] [place] [address] Glucose [Mass/Vol] 162 mg/dL High 70-105 [facility] Comment on above: Order Comment: Waive d Testing in the ED is performed under the ED CLIA certificate #[id number]. Result Comment: [email or web address] Performed By: #### L [id number] #### [facility] ([facility]) [address] [facility] [place] [address] TROPONIN Ion 10-19-2023 Troponin I.cardiac [Mass/Vol] 3.09 ng/mL Critically high 0.00-0.04 [facility] Comment on above: Result Comment: [facility]-[place] EVIOUS CRITICAL RESULT Previous result verified on 10/18/2023 0912 on specimen/case [id number] called with component Troponin I for procedure Troponin I with value 3.51 ng/mL. Performed By: #### L [id number] #### [facility] ([facility]) [address] [place] [address] 30on 10-18-2023 30 Daily Case Managemen t [...] PT Recommendations: OT Recommendations: New Consults: Normal [facility] 30 Problem: Pain - Adul t Goal: Verbalizes/displays adequate comfort level or baseline comfort level Outcome: Progressing Problem: Safety - Adult Goal: Free from fall injury Outcome: Progressing Flowsheets (Taken 10/18/2023 08) Free from fall injury: Assess patient frequently for physical needs [place] fall precautions as indicated by assessment Identify [...] with appropriate resources Outcome: Progressing Flowsheets (Taken 10/18/2023 08) Discharge to home or other facility with [...] maintained or improved Outcome: Progressing Flowsheets (Taken 10/18/2023 08) Care Plan - Patient's Chronic Conditions and [...] include receive cardiac cath without complications Normal [facility] 30 Problem: Pain - Adul t [...] the shift include stable vitals, safety Normal [facility] APTTon 10-18-2023 ACTIVATED PARTIAL THROMBOPLASTIN TIME IN PPP BY COAGULATION ASSAY 140.1 Seconds Critically high 25.0-35.0 [facility] Comment on above: Result Comment: Clin ical significance of the APTT is questionable in the presence of heparin. Performed By: #### L [id number] #### [facility] ([facility]) [address] [place] [address] ACTIVATED PARTIAL THROMBOPLASTIN TIME IN PPP BY COAGULATION ASSAY 174.6 Seconds Critically high 25.0-35.0 [facility] Comment on above: Order Comment: Check aPTT every 6 hours while on heparin infusion, or per protocol. Result Comment: Clin ical significance of the APTT is questionable in the presence of heparin. Performed By: #### L [id number] #### [facility] ([facility]) [address] [place] [address] B-TYPE NATRIURETIC PEPTIDEon 10-18-2023 Natriuretic peptide B (Bld) [Mass/Vol] 1127 pg/mL High 0-100 [facility] Comment on above: Performed By: #### L [id number] #### [facility] ([facility]) [address] [place] [address] CBCon 10-18-2023 Erythrocyte distribution width (RBC) [Ratio] 13.5 % Normal 11.5-15.0 [facility] Comment on above: Performed By: #### L [id number] #### [facility] ([facility]) [address] [place] [address] ERYTHROCYTE MEAN CORPUSCULAR HEMOGLOBIN CONCENTRATION (G/DL) BY AUTOMATED 32.3 g/dL Normal 32.0-35.0 [facility] Comment on above: Performed By: #### L [id number] #### [facility] ([facility]) [address] [place] [address] Hematocrit (Bld) [Volume fraction] 34.4 % Low 36.0-48.0 [facility] Comment on above: Performed By: #### L [id number] #### [facility] ([facility]) [address] [place] [address] Hemoglobin (Bld) [Mass/Vol] 11.1 g/dL Low 12.0-15.0 [facility] Comment on above: Performed By: #### L [id number] #### [facility] [address] [place] [address] MCH (RBC) [Entitic mass] 31.2 pg Normal 27.0-33.0 [facility] Comment on above: Performed By: #### L [id number] #### [facility] [address] [place] [address] MCV (RBC) [Entitic vol] 96.6 fL Normal 82.0-98.0 [facility] Comment on above: Performed By: #### L [id number] #### [facility] ([facility]) [address] [place] [address] PLATELETS (10*3/UL) IN BLOOD AUTOMATED COUNT 205 10*3/uL Normal 150-400 [facility] Comment on above: Performed By: #### L [id number] #### [facility] ([facility]) [address] [place] [address] RBC (Bld) [#/Vol] 3.56 10*6/uL Low 3.80-5.00 [facility] Comment on above: Performed By: #### L [id number] #### [facility] ([facility]) [address] [place] [address] WBC (Bld) [#/Vol] 10.64 10*3/uL High 4.00-10.60 [facility] Comment on above: Performed By: #### L [id number] #### [facility] ([facility]) [address] [place] [address] CONSULTon 10-18-2023 CONSULT -- Attestation signed by [...] the case with the ER physician from [place] multiple times, when the cardiac enzyme increase significantly, the patient was transferred to the Client Services Specialist after discussing it with Dr. Henson. She [...] and shortness of breath. She presented at [facility] for RSV pneumonia for two days. She was discharged on Monday with mild improvement in her symptoms. Yesterday, patient started experiencing worsening dyspnea episodes, at rest and exertion. She also reports chest discomfort, retrosternal, non-radiating, of severity 5/10, relieved on nitrotabs. At [facility], High sensitivity troponin-143.6---2392. 5/ EKG-afib. Patient was [...] 1939 (!) 1 (more content not included)... [facility] HPon 10-18-2023 HP -- Attestation signed by [...] HTN who was admitted from [facility] where she presented with several days history of progressive shortness of breath retrosternal chest discomfort described by her as dull ache at times burning nonradiating associated for dyspnea. Given her multiple co-morbidities and anginal equivalent pain we will proceed with RHC/LHC to measure left and right sided pressure and also look for any progression of CAD in setting of NSTEMI. Normal [facility] POCT GLUCOSE METER UNSOLICIT ED RESULTSon 10-18-2023 Glucose [Mass/Vol] 307 mg/dL High 70-105 [facility] Comment on above: Order Comment: Waive d Testing in the ED is performed under the ED CLIA certificate #[id number]. Result Comment: [email or web address] Performed By: #### L [id number] #### [facility] ([facility]) [address] [place] [address] Glucose [Mass/Vol] 196 mg/dL High 70-105 [facility] Comment on above: Order Comment: Waive d Testing in the ED is performed under the ED CLIA certificate #[id number]. Result Comment: [email or web address] Performed By: #### L [id number] ####[facility] ([facility])[address] [place] [address] Glucose [Mass/Vol] 201 mg/dL High 70-105 [facility] Comment on above: Order Comment: Waive d Testing in the ED is performed under the ED CLIA certificate #[id number]. Result Comment: [email or web address] Performed By: #### L [id number] #### [facility] ([facility]) [address] [place] [address] T4, FREEon 10-18-2023 THYROXINE (T4) FREE (NG/DL) IN SER/PLAS 0.86 ng/dL Normal 0.71-1.85 [facility] Comment on above: Performed By: #### L [id number] #### [facility] ([facility]) [address] [place] [address] TROPONIN Ion 10-18-2023 Troponin I.cardiac [Mass/Vol] 3.51 ng/mL Critically high 0.00-0.04 [facility] Comment on above: Result Comment: Prev ious result verified on 10/18/2023 0543 on specimen/case [id number] called with component Troponin I for procedure Troponin I with value 4.06 ng/mL. Performed By: #### L [id number] #### [facility] ([facility]) [address] [place] [address] Troponin I.cardiac [Mass/Vol] 4.06 ng/mL Critically high 0.00-0.04 [facility] Comment on above: Result Comment: [place] EVIOUS CRITICAL RESULT Previous result verified on 10/18/2023 0135 on specimen/case [id number] called with component Troponin I for procedure Troponin I with value 4.29 ng/mL. Performed By: #### L [id number] #### [facility] ([facility]) [address] [place] [address] Troponin I.cardiac [Mass/Vol] 4.29 ng/mL Critically high 0.00-0.04 [facility] Comment on above: Result Comment: [place] EVIOUS CRITICAL RESULT Previous result verified on 10/17/2023 2151 on specimen/case [id number] called with component Troponin I for procedure Troponin I with value 3.96 ng/mL. Performed By: #### L [id number] ####[facility] ([facility])[address] [place] [address] TSH3 REFLEX TO FT4on 023 THYROTROPIN (MIU/L) IN SER/PLAS BY DETECTION LIMIT <= 0.05 MIU/L 0.02 mIU/L Low 0.34-5.60 [facility] Comment on above: Performed By: #### L [id number] #### [facility] ([facility]) [address] [place] [address] CBC WITH AUTO DIFFERENTIALon 10-17-2023 Basophils (Bld) [#/Vol] 0.01 10*3/uL Normal 0.00-0.20 [facility] Comment on above: Performed By: #### L [id number] #### [facility] ([facility]) [address] [place] [address] Basophils/100 WBC (Bld) 0.1 % Normal 0.0-1.0 [facility] Comment on above: Performed By: #### L [id number] #### [facility] ([facility]) [address] [place] [address] Eosinophils (Bld) [#/Vol] 0.00 10*3/uL Normal 0.00-0.50 [facility] Comment on above: Performed By: #### L [id number] #### [facility] ([facility]) [address] [place] [address] Eosinophils/100 WBC (Bld) 0.0 % Normal 0.0-6.0 [facility] Comment on above: Performed By: #### L [id number] #### [facility] ([facility]) [address] [place] [address] Erythrocyte distribution width (RBC) [Ratio] 13.7 % Normal 11.5-15.0 [facility] Comment on above: Performed By: #### L [id number] #### [facility] ([facility]) [address] [place] [address] ERYTHROCYTE MEAN CORPUSCULAR HEMOGLOBIN CONCENTRATION (G/DL) BY AUTOMATED 32.5 g/dL Normal 32.0-35.0 [facility] Comment on above: Performed By: #### L [id number] #### [facility] [facility] ([facility]) [address] [place] [place] [address] Hematocrit (Bld) [Volume fraction] 36.6 % Normal 36.0-48.0 [facility] Comment on above: Performed By: #### L [id number] #### [facility] [address] [place] [address] Hemoglobin (Bld) [Mass/Vol] 11.9 g/dL Low 12.0-15.0 [facility] Comment on above: Performed By: #### L [id number] #### [facility] ([facility] [address] [place] [address] Immature granulocytes (Bld) [#/Vol] 0.10 10*3/uL Normal 0.00-0.20 [facility] Comment on above: Performed By: #### L [id number] #### [facility] ([facility]) [address] [place] [address] Immature granulocytes/100 WBC (Bld) 0.8 % Normal 0.0-1.0 [facility] Comment on above: Performed By: #### L [id number] #### [facility] ([facility]) [address] [place] [address] Lymphocytes (Bld) [#/Vol] 1.21 10*3/uL Normal 1.20-4.00 [facility] Comment on above: Performed By: #### L [id number] #### [facility] ([facility] [address] [place] [address] Lymphocytes/100 WBC (Bld) 9.5 % Low 20.0-45.0 [facility] Comment on above: Performed By: #### L [id number] #### [facility] ([facility] [address] [place] [place] [address] MCH (RBC) [Entitic mass] 31.5 pg Normal 27.0-33.0 [facility] Comment on above: Performed By: #### L [id number] #### [facility] ([facility]) [address] [place] [address] MCV (RBC) [Entitic vol] 96.8 fL Normal 82.0-98.0 [facility] Comment on above: Performed By: #### L [id number] #### [facility] ([facility]) [address] [place] [address] Monocytes (Bld) [#/Vol] 0.54 10*3/uL Normal 0.10-1.00 [facility] Comment on above: Performed By: #### L [id number] #### [facility] ([facility]) [address] [place] [address] Monocytes/100 WBC (Bld) 4.2 % Low 5.0-12.0 [facility] Comment on above: Performed By: #### L [id number] #### [facility] ([facility]) [address] [place] [address] Neutrophils (Bld) [#/Vol] 10.92 10*3/uL High 1.60-7.60 [facility] Comment on above: Performed By: #### L [id number] #### [facility] ([facility]) [address] [place] [address] Neutrophils/100 WBC (Bld) 85.4 % High 40.0-72.0 [facility] Comment on above: Performed By: #### L [id number] #### [facility] ([facility]) [address] [place] [address] NRBC (PER 100 WBCS) BY AUTOMATED COUNT 0.0 % Normal 0 [facility] Comment on above: Performed By: #### L [id number] #### [facility] ([facility]) [address] [place] [address] PLATELETS (10*3/UL) IN BLOOD AUTOMATED COUNT 225 10*3/uL Normal 150-400 [facility] Comment on above: Performed By: #### L [id number] #### [facility] ([facility]) [address] [place] [address] RBC (Bld) [#/Vol] 3.78 10*6/uL Low 3.80-5.00 [facility] Comment on above: Performed By: #### L [id number] #### [facility] ([facility]) [address] [place] [address] WBC (Bld) [#/Vol] 12.78 10*3/uL High 4.00-10.60 [facility] Comment on above: Performed By: #### L [id number] #### [facility] ([facility]) [address] [place] [address] COMPREHENSIVE METABOLIC PANE Henok 10-17-2023 Albumin [Mass/Vol] 4.2 g/dL Normal 3.5-5.7 [facility] Comment on above: Performed By: #### L [id number] ####[facility] ([facility] [place] [address] ALP [Catalytic activity/Vol] 50 U/L Normal 34-104 [facility] Comment on above: Performed By: #### L [id number] ####[facility] ([facility] [place] [address] ALT [Catalytic activity/Vol] 45 U/L Normal 7-52 [facility] Comment on above: Performed By: #### L [id number] ####[facility] (BEAKER)[address] [place] [address] Anion gap [Moles/Vol] 16 mmol/L Normal 7-20 [facility] Comment on above: Performed By: #### L [id number] ####[facility] ([facility] [place] [address] AST [Catalytic activity/Vol] 35 U/L Normal 13-39 [facility] Comment on above: Performed By: #### L [id number] ####[facility] ([facility] [place] [address] Bilirubin [Mass/Vol] 0.5 mg/dL Normal 0.3-1.0 [facility] Comment on above: Performed By: #### L [id number] ####[facility] (BEAKER)[address] [place] [address] Calcium [Mass/Vol] 9.0 mg/dL Normal 8.6-10.3 [facility] Comment on above: Performed By: #### L [id number] ####[facility] (BEAKER)[address] [place] [address] Chloride [Moles/Vol] 102 mmol/L Normal 98-107 [facility] Comment on above: Performed By: #### L [id number] ####[facility] (BEAKER)[address] [place] [address] CO2 [Moles/Vol] 24 mmol/L Normal 21-31 [facility] Comment on above: Performed By: #### L [id number] ####[facility] (BEAKER)[address] [place] [address] Creatinine [Mass/Vol] 1.13 mg/dL Normal 0.60-1.20 [facility] Comment on above: Performed By: #### L [id number] ####[facility] ([facility] [place] [address] GLOMERULAR FILTRATION RATE ML/MIN/1.73 SQ M.PREDICTED 50.1 mL/min/1.73m*2 Low >60.0 [facility] Comment on above: Result Comment: [facility]???s estimated glomerular filtration rate (eGFR) will [...] of individuals. Performed By: #### L [id number] ####[facility] (BE[facility])[address] [place] [address] Glucose [Mass/Vol] 243 mg/dL High 70-100 [facility] Comment on above: Performed By: #### L [id number] ####[facility] ([facility])[address] [place] [address] Potassium [Moles/Vol] 3.9 mmol/L Normal 3.5-5.1 [facility] Comment on above: Performed By: #### L [id number] ####[facility] ([facility])[address] [place] [address] Protein [Mass/Vol] 6.4 g/dL Normal 6.0-8.3 [facility] Comment on above: Performed By: #### L [id number] ####[facility] ([facility])[address] [place] [address] Sodium [Moles/Vol] 138 mmol/L Normal 136-145 [facility] Comment on above: Performed By: #### L [id number] ####[facility] ([facility])[address] [place] [address] Urea nitrogen [Mass/Vol] 31 mg/dL High 7-25 [facility] Comment on above: Performed By: #### L [id number] ####[facility] ([facility])[address] [place] [address] UREA NITROGEN/CREATININE (MASS RATIO) IN SER/PLAS 27.4 Normal [facility] Comment on above: Performed By: #### L [id number] ####[facility] ([facility])[address] [place] [address] D-DIMER, QUANTITATIVEon 10-06 FIBRIN D-DIMER (UG/L FEU) IN PLATELET POOR PLASMA <0.27 Low 0.27-0.49 [facility] Comment on above: Order Comment: D-Dim er values of less than 0.50 ug/ml (FEU) are considered to be a negative predictor of thrombosis. However, the D-Dimer result should be used in conjunction with pretest probability and should not be used alone to diagnose a thrombotic event. Performed By: #### L [id number] ####[facility] ([facility]ER)[address] [place] [address] HPon 10-17-2023 History Of Present Illness michoacano Orozco is an 78 y.o. female admitted from [facility] where she presented with several days history of progressive shortness of breath retrosternal chest discomfort described by her as dull ache at times burning nonradiating associated for dyspnea Patient was recently discharged from [facility] after being admitted for RSV pneumonia since that time she has been having shortness of breath which gets worse with activity she denies any fever chills sinus trouble sore throat she denies any dizziness lightheadedness she feels tired she has history of atrial fibrillation and has been on Eliquis and metoprolol she denies any cardioversion in the past at [facility] she had 2 sets of troponin [...] above patient would need to go to Client Services Specialist we will stiven (more content not included)... Normal [facility] POCT GLUCOSE METER UNSOLICIT ED RESULTSon 10-17-2023 Glucose [Mass/Vol] 217 mg/dL High 70-105 [facility] Comment on above: Order Comment: Waive d Testing in the ED is performed under the ED CLIA certificate #[id number]. Result Comment: ebeg in Performed By: #### L [id number] ####[facility] ([facility])[address] [place] [address] TROPONIN Ion 10-17-2023 Troponin I.cardiac [Mass/Vol] 3.96 ng/mL Critically high 0.00-0.04 [facility] Comment on above: Result Comment: ANGÉLICA MARKS INITIAL CRITICAL HIGH; RESPUN AND RETESTED Performed By: #### L [id number] #### [facility] ([facility]ER) [address] [place] [address] Office Visiton 05-24-2023 Follow-up visit [id number] Rachel Orozco 1945 F Date Provider Department Center 05/24/2023 [id number] MIMS CARD [facility] No family history on file Level of Service:88039 [place] OFFICE/OUTPATIENT ESTABLISHED LOW MDM 20-29 MIN Reason for Visit and Comments: Follow-up [466645] - 1 YR FOLLOW UP Normal [facility] Covid-19 PCR (CVDTB)on 10-07 SARS-CoV-2 (COVID-19) RNA CIARAN+probe Ql (Unsp spec) Not detected Normal NOT DETECTED [facility] Comment on above: Result Comment: When [...] for this test is supported by the [employer] of Health and Human Service's declaration that [...] By: #### C VDTBH #### [facility] [address] [address] [address] Mildred Álvarez INFLUENZA A AND B AGon 10-26 INFLUANEGH SEE BELOW Normal [facility] Comment on above: Result Comment: Nega tive for Flu A protein angiten. Infection due to Flu A cannot be ruled out. Flu A angiten in the sample may be below the detection limit of the test. Performed By: #### I NFLUAB ####[facility] [id number]. Mildred Álvarez INFLUBNEGH SEE BELOW Normal [facility] Comment on above: Result Comment: Nega tive for Flu B protein antigen. Infection due to Flu B cannot be ruled out. Flu B antigen in the sample may be below the detection limit of the test. Performed By: #### I NFLUAB ####[facility] [address] [id number]. Mildred Álvarez INFLUENZA A AG Negative Normal NEGATIVE SEE COMMENT [facility] Comment on above: Performed By: #### I NFLUAB ####[facility] [address] [place], [place] [address]AqBrendan Álvarez INFLUENZA B AG Negative Normal NEGATIVE SEE COMMENT [facility] Comment on above: Performed By: #### I NFLUAB ####[facility] [address] [place], [place] [address]Ia. Mildred Álvarez INTERNAL CONTROLS Within Normal Limits Normal Wi thin Normal Limits [facility] Comment on above: Performed By: #### I NFLUAB ####[facility] [address] [place], [place] [address]YqBrendan Álvarez OCC BLD IMMUNO SCREENon OCCULT BLOOD Negative Normal NEGATIVE [facility] Comment on above: Performed By: #### O BSCRN #### [facility] [address] [place] [address] Dr. Mildred Álvarez CBC AUTO DIFFon 09-09-2022 BASO # 0.0 103/ul Normal 0.0-0.1 [facility] Comment on above: Performed By: #### C BC #### [facility] [address] [address] [address] Mildred Álvarez Basophils/100 WBC (Bld) 0.9 % Normal 0.2-2.0 [facility] Comment on above: Performed By: #### C BC #### [facility] [address] [address] [address] Mildred Álvarez EO # 0.2 103/ul Normal 0.0-0.7 [facility] Comment on above: Performed By: #### C BC #### [facility] [address] [address] [address] Mildred Álvarez Eosinophils/100 WBC (Bld) 4.8 % Normal 0.9-7.0 [facility] Comment on above: Performed By: #### C BC #### [facility] [address] [address] [address] Mildred Álvarez Erythrocyte distribution width (RBC) [Ratio] 12.5 % Normal 11.0-15.0 [facility] Comment on above: Performed By: #### C BC #### [facility] [address] [place] [address] Dr. Mildred Álvarez Hematocrit (Bld) [Volume fraction] 36.7 % Normal 36.0-48.0 [facility] Comment on above: Performed By: #### C BC #### [facility] [address] [place] [address] Dr. Mildred Álvarez Hemoglobin (Bld) [Mass/Vol] 11.9 g/dL Critically low 12.0-16.0 [facility] Comment on above: Performed By: #### C BC #### [facility] [address] [place] [address] Dr. Mildred Álvarez IG # 0.02 10e3/ul Normal 0.00-0.03 [facility] Comment on above: Performed By: #### C BC #### [facility] [address] [place] [address] Dr. Mildred Álvarez IG % 0.5 % Normal 0.0-0.5 [facility] Comment on above: Performed By: #### C BC #### [facility] [address] [place] [address] Dr. Mildred Álvarez LYMPH # 1.6 103/ul Normal 1.2-3.8 [facility] Comment on above: Performed By: #### C BC #### [facility] [address] [place] [address] Dr. Mildred Álvarez Lymphocytes/100 WBC (Bld) 37.4 % Normal 20.5-60.0 [facility] Comment on above: Performed By: #### C BC #### [facility] [address] [place] [address] Dr. Mildred Álvarez MANUAL DIFF REQ NO Normal [facility] Comment on above: Performed By: #### C BC #### [facility] [address] [place] [address] Dr. Mildred Álvarez MCH (RBC) [Entitic mass] 32.2 pg Normal 26.7-34.0 [facility] Comment on above: Performed By: #### C BC #### [facility] [address] [address] [address] Mildred Álvarez MCHC (RBC) [Mass/Vol] 32.4 g/dL Normal 29.9-35.2 [facility] Comment on above: Performed By: #### C BC #### [facility] [address] [address] [address] Mildred Álvarez MCV (RBC) [Entitic vol] 99.5 fL Critically high 81.0-99.0 [facility] Comment on above: Performed By: #### C BC #### [facility] [address] [address] [address] Mildred Álvarez MONO # 0.6 103/ul Normal 0.3-0.8 [facility] Comment on above: Performed By: #### C BC #### [facility] [address] [place] [address] Dr. Mildred Álvarez Monocytes/100 WBC (Bld) 13.5 % Critically high 1.7-12.0 [facility] Comment on above: Performed By: #### C BC #### [facility] [address] [place] [address] Dr. Mildred Álvarez NEUT # 1.9 103/ul Normal 1.4-6.5 [facility] Comment on above: Performed By: #### C BC #### [facility] [address] [place] [address] Dr. Mildred Álvarez Neutrophils/100 WBC (Bld) 42.9 % Critically low 43.0-75.0 [facility] Comment on above: Performed By: #### C BC #### [facility] [address] [address] [address] Mildred Álvarez Platelet mean volume (Bld) [Entitic vol] 11.1 fL Normal 9.5-13.5 [facility] Comment on above: Performed By: #### C BC #### [facility] [address] [place] [address] Dr. Mildred Álvarez PLT 212 103/ul Normal 150-450 [facility] Comment on above: Performed By: #### C BC #### [facility] [address] [address] [address] Mildred Álvarez RBC 3.69 106/ul Critically low 4.20-5.40 [facility] Comment on above: Performed By: #### C BC #### [facility] [address] [place] [address] Dr. Mildred Álvarez WBC 4.4 103/ul Normal 4.0-11.0 [facility] Comment on above: Performed By: #### C BC #### [facility] [address] [address] [address] Mildred Álvarez FREE T3on 09-09-2022 FREE T3 1.92 pg/mlL Critically low 2.18-3.98 [facility] Comment on above: Performed By: #### C MP, T4, FT3, LIPID, TSH #### [facility] [address] [place] [address] Dr. Mildred Álvarez GLYCOHEMOGLOBIN A1Con 2021 ADA RECOMMENDATION SEE BELOW Normal [facility] Comment on above: Result Comment: ADA RECOMMENDED LIMIT 4.0 - 6.0 ADA THERAPEUTIC TARGET < 7.0 ACTION SUGGESTED > 7.0 Performed By: #### A 1C #### [facility] [address] [place] [address] Dr. Mildred Álvarez Glucose [Mass/Vol] 140 mg/dL Normal [facility] Comment on above: Performed By: #### A 1C #### [facility] [address] [place] [address] Dr. Mildred Álvarez HbA1c (Bld) [Mass fraction] 6.5 % Critically high 4.5-6.2 [facility] Comment on above: Performed By: #### A 1C #### [facility] [address] [place] [address] Dr. Mildred Álvarez LIPID PROFILEon 09-09-2022 CHOL-HDL RATIO NORM SEE BELOW Normal [facility] Comment on above: Result Comment: 3.3 - 4.4 LOW RISK 4.4 - 7.1 AVERAGE RISK 7.1 - 11.0 MODERATE RISK >11.0 HIGH RISK Performed By: #### C MP, T4, FT3, LIPID, TSH #### [facility] [address] [address] [address] Mildred Álvarez Cholesterol [Mass/Vol] 153 mg/dL Normal <=200 [facility] Comment on above: Performed By: #### C MP, T4, FT3, LIPID, TSH #### [facility] [address] [address] [address] Mildred Álvarez Cholesterol in HDL [Mass/Vol] 44 mg/dL Normal 40-60 [facility] Comment on above: Performed By: #### C MP, T4, FT3, LIPID, TSH #### [facility] [address] [address] [address] Mildred Álvarez Cholesterol in LDL [Mass/Vol] 82.6 mg/dL Normal [facility] Comment on above: Performed By: #### C MP, T4, FT3, LIPID, TSH #### [facility] [address] [address] [address] Mildred Álvarez Cholesterol.total/Ch olesterol in HDL [Mass ratio] 3.5 {ratio} Normal [facility] Comment on above: Performed By: #### C MP, T4, FT3, LIPID, TSH #### [facility] [address] [address] [address] Mildred Álvarez HDL NORMAL > or = 60 mg/dl - LO W CARDIOVASCULAR RISK <40 mg/dl - HIGH CARDIOVASCULAR RISK Normal [facility] Comment on above: Performed By: #### C MP, T4, FT3, LIPID, TSH #### [facility] [address] [address] [address] Mildred Álvarez LDL CALC NORMAL SEE BELOW Normal [facility] Comment on above: Result Comment: <100 mg/dl OPTIMAL 100 - 129 mg/dl NEAR OR ABOVE OPTIMAL 130 - 159 mg/dl BORDERLINE HIGH 160 - 189 mg/dl HIGH >190 mg/dl VERY HIGH Performed By: #### C MP, T4, FT3, LIPID, TSH #### [facility] [address] [address] [address] Mildred Álvarez Triglyceride [Mass/Vol] 132 mg/dL Normal <=150 [facility] Comment on above: Performed By: #### C MP, T4, FT3, LIPID, TSH #### [facility] [address] [place] [address] Dr. Mildred Álvarez VLDL CALC 26.4 mg/dL Normal [facility] Comment on above: Performed By: #### C MP, T4, FT3, LIPID, TSH #### [facility] [address] [place] [address] Dr. Mildred Álvarez PROF 14(COMP METB)on 022 Albumin [Mass/Vol] 3.7 g/dL Normal 3.4-5.0 [facility] Comment on above: Performed By: #### C MP, T4, FT3, LIPID, TSH #### [facility] [address] [place] [address] Dr. Mildred Álvarez Albumin/Globulin [Mass ratio] 1.2 {ratio} Normal [facility] Comment on above: Performed By: #### C MP, T4, FT3, LIPID, TSH #### [facility] [address] [place] [address] Dr. Mildred Álvarez ALP [Catalytic activity/Vol] 52 U/L Normal 46-116 [facility] Comment on above: Performed By: #### C MP, T4, FT3, LIPID, TSH #### [facility] [address] [place] [address] Dr. Mildred Álvarez ALT [Catalytic activity/Vol] 35 U/L Normal 14-59 [facility] Comment on above: Performed By: #### C MP, T4, FT3, LIPID, TSH #### [facility] [address] [place] [address] Dr. Mildred Álvarez Anion gap [Moles/Vol] 9.5 mmol/L Normal [facility] Comment on above: Performed By: #### C MP, T4, FT3, LIPID, TSH #### [facility] [address] [place] [address] Dr. Mildred Álvarez AST [Catalytic activity/Vol] 19 U/L Normal 15-37 [facility] Comment on above: Performed By: #### C MP, T4, FT3, LIPID, TSH #### [facility] [address] [address] [address] Mildred Álvarez Bilirubin [Mass/Vol] 0.3 mg/dL Normal 0.2-1.0 [facility] Comment on above: Performed By: #### C MP, T4, FT3, LIPID, TSH #### [facility] [address] [place] [address] Dr. iMldred Álvarez Calcium [Mass/Vol] 9.4 mg/dL Normal 8.5-10.1 [facility] Comment on above: Performed By: #### C MP, T4, FT3, LIPID, TSH #### [facility] [address] [address] [address] Mildred Álvarez Chloride [Moles/Vol] 106 mmol/L Normal 98-107 [facility] Comment on above: Performed By: #### C MP, T4, FT3, LIPID, TSH #### [facility] [address] [place] [address] Dr. Mildred Álvarez CO2 [Moles/Vol] 28.9 mmol/L Normal 21.0-32.0 [facility] Comment on above: Performed By: #### C MP, T4, FT3, LIPID, TSH #### [facility] [address] [place] [address] Dr. Mildred Álvarez Creatinine [Mass/Vol] 1.04 mg/dL Critically high 0.55-1.02 [facility] Comment on above: Performed By: #### C MP, T4, FT3, LIPID, TSH #### [facility] [address] [place] [address] Dr. Mildred Álvarez EGFR-AF [place]ER >60 Normal >=60 [facility] Comment on above: Performed By: #### C MP, T4, FT3, LIPID, TSH #### [facility] [address] [place] [address] Dr. Mildred Álvarez EGFR-NON AF [place] >60 Normal >=60 [facility] [facility] Comment on above: Performed By: #### C MP, T4, FT3, LIPID, TSH #### [facility] [address] [place] [address] Dr. Mildred Álvarez Globulin (S) [Mass/Vol] 3.2 g/dL Normal [facility] Comment on above: Performed By: #### C MP, T4, FT3, LIPID, TSH #### [facility] [address] [place] [address] Dr. Mildred Álvarez Glucose [Mass/Vol] 131 mg/dL Critically high 74-106 [facility] Comment on above: Performed By: #### C MP, T4, FT3, LIPID, TSH #### [facility] [address] [place] [address] Dr. Mildred Álvarez Potassium [Moles/Vol] 4.4 mmol/L Normal 3.5-5.1 [facility] Comment on above: Performed By: #### C MP, T4, FT3, LIPID, TSH #### [facility] [address] [place] [address] Dr. Mildred Álvarez Protein [Mass/Vol] 6.9 g/dL Normal 6.4-8.2 [facility] Comment on above: Performed By: #### C MP, T4, FT3, LIPID, TSH #### [facility] [address] [place] [address] Dr. Mildred Álvarez Sodium [Moles/Vol] 140 mmol/L Normal 136-145 [facility] Comment on above: Performed By: #### C MP, T4, FT3, LIPID, TSH #### [facility] [address] [place] [address] Dr. Mildred Álvarez Urea nitrogen [Mass/Vol] 28.0 mg/dL Critically high 7.0-18.0 [facility] Comment on above: Performed By: #### C MP, T4, FT3, LIPID, TSH #### [facility] [address] [place] [address] Dr. Mildred Álvarez Urea nitrogen/Creatinine [Mass ratio] 26.9 mg/mg Normal [facility] Comment on above: Performed By: #### C MP, T4, FT3, LIPID, TSH #### [facility] [address] [place] [address] Dr. Mildred Álvarez T4on 09-09-2022 T4 [Mass/Vol] 5.10 ug/dL Normal 4.80-13.90 [facility] Comment on above: Performed By: #### C MP, T4, FT3, LIPID, TSH #### [facility] [address] [address] [address] Mildred Álvarez TSHon 09-09-2022 TSH 0.641 uIU/mL Normal 0.358-3.740 [facility] Comment on above: Performed By: #### C MP, T4, FT3, LIPID, TSH #### [facility] [address] [address] [address] Mildred Álvarez VITAMIN D 25 OHon 09-09-2022 VIT D 25-OH 45.3 ng/mL Normal [facility] Comment on above: Performed By: #### V ITAD ####[facility] [id number] [address]Dr. Mildred Álvarez VIT D RANGES SEE BELOW Normal [facility] Comment on above: Result Comment: <20 ng/mL Vit D deficient 20 - <30 ng/mL Vit D insufficient 30 - 100 ng/mL Vit D sufficient >100 ng/mL Potential Toxicity Performed By: #### V ITAD ####[facility] [id number] [id number]. Mildred Álvarez MG MAMM SCREEN 3D MIGUEL CADon 06-20-2022 MG MAMM SCREEN 3D MIGUEL CAD Patient: RACHEL OROZCO Exam Date: 06/20/2022 : 1945 Gender:F Ordering : DR BEN KRAFT . Admission #: [id number] Family : Order #: [id number] CLICK HERE TO VIEW EXAM RADIOLOGY REPORT [...] at age 41. LOCATION: [facility] BREAST COMPOSITION: Scattered areas fibroglandular density. [...] M.D. on 06/20/2022 at 12:49 Normal [facility] Encounters Encounter Date Encounter Type Care Provider Facility Start: 01-02-2024 ambulatory Jax TROY Facility :[facility] Start: 12-01-2023 ambulatory Jax TROY Facility:Dean [facility] Start: 10-26-2023 End: 10-26-2023 ambulatory SAADIA MYLES [facility] Start: 10-19-2023 Evaluation and management of inpatient BLANCHE WELLSCARLITO [facility] Start: 10-18-2023 Evaluation and management of inpatient ANNABELLA IBARRALISA [facility] Start: 10-18-2023 Evaluation and management of inpatient YEIMY ANDRADE [facility] Start: 10-17-2023 End: 10-20-2023 Evaluation and management of inpatient BETTY JONES [facility] Start: 05-24-2023 ambulatory [facility] Start: 10-26-2022 End: 10-26-[address] BEN KRAFT Facility:[facility] Start: 09-12-2022 End: 09-12-[address] BEN KRAFT Facility:[facility] Start: 09-09-2022 End: 09-10-[address] BEN KRAFT Facility:[facility] Start: 06-20-2022 End: 06-21-[address] BEN KRAFT Facility:[facility] Start: 06-12-2019 End: 06-12-2019 Emergency department patient visit DENZEL OHARA Facility:[facility] Payers Date Payer Category Payer Medicare [id number] 1958 Unknown [id number] 1945 Unknown [id number] 2.16.8 [id number] 1945 Unknown [id number] 2.16.84 [id number] 1945 Unknown [id number] 2.16.84 [id number] 1945 Unknown [id number] 2.16.84 [id number] 1945 Unknown [id number] 2.16.84 [id number] 1945 Unknown [id number] 2.16.8 [id number] Medicare [id number] Clinical Notes 05-24-2023 to 10-26-2023 Note Date & Type Note Facility 10-26-2023 Note Patient here for [facility] for NSTEMI. Underwent heart cath on [...] All other systems reviewed and are negative. [facility] 10-26-2023 Note Cardiovascular Medic ine [facility] SUBJECTIVE No chief complaint on file. Rachel Orozco is a 78 y.o. female here for follow-up after her recent admission to [facility]. HPI Patient here for follow up [facility] for NSTEMI. Underwent heart cath [...] 78 y.o. female admitted from [facility] where she presented with several days history of progressive shortness of breath retrosternal chest discomfort described by her as dull ache at times burning nonradiating associated for dyspnea Patient was recently discharged from [facility] after being admitted for RSV pneumonia since that time she has been having shortness of breath which gets worse with activity she denies any fever chills sinus trouble sore throat she denies any dizziness lightheadedness she feels tired she has history of atrial fibrillation and has been on Eliquis and metoprolol she denies any cardioversion in the past at [facility] she had 2 sets of troponin [...] mouth in the (more content not included)... [facility] 10-20-2023 Note Hospital Medicine Discharge Summary Final Discharge Diagnosis: Chest pain Admission Diagnosis: Chest pain [R07.9] Hospital course: michoacano Orozco is an 78 y.o. female admitted from [facility] where she presented with several days history of progressive shortness of breath retrosternal chest discomfort described by her as dull ache at times burning nonradiating associated for dyspnea Patient was recently discharged from [facility] after being admitted for RSV pneumonia since that time she has been having shortness of breath which gets worse with activity she denies any fever chills sinus trouble sore throat she denies any dizziness lightheadedness she feels tired she has history of atrial fibrillation and has been on Eliquis and metoprolol she denies any cardioversion in the past at [facility] she had 2 sets of troponin [...] Center 10/26/2023 11:40 AM Saadia Myles NP [facility] Your medication list START taking these medications [...] losartan 50 mg tablet Commonly known as: Wendie Where to Get Your Medications These medications were sent to [facility] - [place], [place] - [facility] [address] [place] [address] [place] [address], [facility] [address] aspirin 81 mg EC tablet atorvastatin 80 [...] AUTO 10*3/uL 239 (more content not included)... [facility] 10-20-2023 Note Physical Therapy Spoke with [...] and sign off. Chris Obando PT, DPT [facility] 10-20-2023 Note Patient requires 2 L nc with ambulation to maintain O2 greater than 92% due to her diastolic heart failure. -Danielle Myles, KOBI [facility] 10-20-2023 Note 10/20/23 1345 Home Oxygen Therapy Evaluation Pulse Oximetry on room air at Rest 94 Pulse Ox on room air while walking 88 Pulse Ox on O2 with nasal cannula while walking 95 Patient Qualification for home oxygen Qualifies $ Pulse Oximetry Multiple (home oxygen eval) [facility] 10-20-2023 Note ------ Attestation signed by [...] ???F) Temporal 53 17 97 % -- 10/20/2344 -- -- -- 52 14 97 % -- 10/20/2343 -- -- -- 61 18 (!) 80 [...] 86 QT Interval 458 QTC CALCULATION(BAZETT) 545 R-Wadsworth 107 T Wave [place] 238 Impression Atrial fibrillation with premature ventricular [...] Lab Results Component Value Date TROPONINI 3.09 () 10/19/2023 Complete Echo (TTE) w/wo Imaging Agent, Strain, 3D, Bubble Study Result Date: 10/18/2023 1 1 [facility] Heart Station [address] [place] [address] [phone] (fax) Echocardiogram-[facility] Name: RACHEL OROZCO Study Date: 10/18/2023 08:28 AM B/P: 124 mmHg/69 mmHg HR: 72 bpm Date of : 1945 Location: [facility] Height: 63 in. Age: 78 [...] cm?? Aortic V (more content not included)... [facility] 10-20-2023 Note Occupational Therapy Occupational Therapy [...] Level of Function Prior Function Level of Hitchcock: Independent with ADLs and functional transfers, Independent [...] Eating meals?: None (Independent) Total Score OT [facility]: 24 Assessment/Plan Plan OT Plan: No skilled OT OT Discharge Recommendations: Home OT - Discharge Recommendations Placed: Yes OT Goals Multi-Disciplinary Problems (from Occupational Therapy) Active Problems Not on file [facility] 10-19-2023 Note 10/19/23 1147 Admission Assessment [...] Discharge? Yes Does the patient have a keycase assembler assigned to them through their insurance? No [...] since she lives alone and is concerned [facility] 10-19-2023 Note Hospital Medicine Daily Progress Note - 10/19/2023 6:04 PM; Room: [address] [place] [address] Admission: 10/17/2023 7:37 PM; Length of stay: 2 days THE HOSPITALIST TEAM PREFERS TO USE [employer] CHAT FOR COMMUNICATION 7AM-7PM. IF I DO NOT RESPOND WITHIN 15 MINUTES, PLEASE PAGE ME/CALL THROUGH THE MULTIGRAPH OPERATOR. FROM 7PM-7AM, PLEASE PAGE [phone](COVR) Code Status: Full Code Barriers to Discharge: [...] Active Problems: NSTEMI (non-ST elevated myocardial infarction) ([facility]) Assessment and Plan NSTEMI Recent RSV infection [...] FREET4 0.86 10/18/2023 No results found for: [id number] , IRON , TIBC , C3 , [...] 07:59, QRS axis (more content not included)... [facility] 10-19-2023 Note [facility] CARDIOLOGY INPAT IENT [...] 86 QT Interval 458 QTC CALCULATION(BAZETT) 545 R-Wadsworth 107 T Wave [place] 238 Impression Atrial fibrillation with premature ventricular or aberrantly conducted complexes Right axis (more content not included)... [facility] 10-18-2023 Note Hospital Medicine Daily Progress Note - 10/18/2023 4:57 PM; Room: [address] [place] [address] Admission: 10/17/2023 7:37 PM; Length of stay: 1 days THE HOSPITALIST TEAM PREFERS TO USE [employer] CHAT FOR COMMUNICATION 7AM-7PM. IF I DO NOT RESPOND WITHIN 15 MINUTES, PLEASE PAGE ME/CALL THROUGH THE MULTIGRAPH OPERATOR. FROM 7PM-7AM, PLEASE PAGE [phone](COVR) Code Status: Full Code Barriers to Discharge: [...] Active Problems: NSTEMI (non-ST elevated myocardial infarction) (CMS/[facility]) Assessment and Plan NSTEMI Recent RSV infection [...] FREET4 0.86 10/18/2023 No results found for: [id number] , IRON , TIBC , C3 , [...] axis Pulmonary dis (more content not included)... [facility] 10-18-2023 Note Patient: Rachel Orozco Procedure Information Date/Time: 10/18/231729 Procedures: Coronary angiography Right heart cath Location: [facility] 3 / [facility] (Cath) Providers: Antony Henson [...] Plan discussed with attending. Additional Equipment Requests [facility] 10-17-2023 Note Hospital Medicine History and Physical 10/17/2023 8:17 PM THE HOSPITALIST TEAM PREFERS TO USE [employer] CHAT FOR COMMUNICATION 7AM-7PM. IF I DO NOT RESPOND WITHIN 15 MINUTES, PLEASE PAGE ME/CALL THROUGH THE MULTIGRAPH OPERATOR. FROM 7PM-7AM, PLEASE PAGE [phone](COVR) Chief Complaint No chief complaint on file. History of Present Illness Rachel Orozco is an 78 y.o. female admitted from [facility] where she presented with several days history of progressive shortness of breath retrosternal chest discomfort described by her as dull ache at times burning nonradiating associated for dyspnea Patient was recently discharged from [facility] after being admitted for RSV pneumonia since that time she has been having shortness of breath which gets worse with activity she denies any fever chills sinus trouble sore throat she denies any dizziness lightheadedness she feels tired she has history of atrial fibrillation and has been on Eliquis and metoprolol she denies any cardioversion in the past at [facility] she had 2 sets of troponin [...] Noted Chest pain 10/17/2023 Diastolic heart failure (CMS/HCC) 05/19/2022 Atrial fibrillation (CMS/HCC) 12/02/2019 Dyspnea on exertion 06/21/2018 Bradycardia 06/21/2018 Assessment and Plan Non-ST MARTIN hide discussed with cardiology will repeat troponin if they are 5 or above patient would need to go to Client Services Specialist we will continue beta-reanna statin asa IV [...] this hospital stay by a member of [facility] Medicine. Past Medical History No [...] mouth in t (more content not included)... [facility] 05-24-2023 Note Cardiology Clinic No te [...] 1 year (around 05/24/2024). Keaton Mims APRN-KOBI [facility] Cardiovascular Medicine [facility] Summary Purpose Family History No Family History Records FoundNo Family History Records FoundNo Family History Records FoundNo Family History Records Found Advance Directives No Advanced Directives Records FoundNo Advanced Directives Records FoundNo Advanced Directives Records FoundNo Advanced Directives Records Found Additional Source Comments INFORMATION SOURCE (unrecogn ized section and content) DATE CREATED AUTHOR 12/09/2019 [facility] DATE CREATED AUTHOR AUTHOR'S ORGANIZ ATION 11/02/2022 [facility] DATE CREATED AUTHOR AUTHOR'S ORGANIZ ATION 12/06/2023 [facility] DATE CREATED AUTHOR AUTHOR'S ORGANIZ ATION 12/16/2023 [facility] FOR RECORDS PERTAINING TO PATIENTS WHO [...] BE BASED ON THE PRIMARY CLINICAL RECORDS. [employer] provides no warranty or guarantee of the accuracy or completeness of information in this document.
--- NOTE | 2023-12-20 10:27 | XR_ITS ---
The [address] [address] Patient Name: ABDON OROZCO MRN: [id number] date: 1945 Sex: F Assigned Patient Location: ER Current Patient Location: ER Accession/Order Number: [id number] Exam Date: 12/20/2023 10:56 Report Date: 12/20/2023 11:19 At the request of: NATHALIE DEE Procedure: XR lumbar spine 2-3V EXAMINATION: XR lumbar spine 2-3V, [id number] HISTORY: Atraumatic pain COMPARISON: CT abdomen/pelvis 12/17/2023 FINDINGS: There are 5 nonrib-bearing lumbar-type vertebral bodies. No acute fracture or suspicious osseous lesion. Mild retrolisthesis of L3 on L4 and mild S-shaped curvature of the lumbar spine, similar. Severe spondylosis throughout the lumbar spine with the exception of L2-L3 where degenerative changes are moderate. Calcified atherosclerosis of the abdominal aorta. XR/XR lumbar spine 2-3V IMPRESSION: 1. No acute osseous abnormality or new/worsening abnormality compared with 12/17/2023. 2. Severe lumbar spondylosis and mild multidimensional spinal malalignment. Electronically authenticated by: JERARDO COMBS Date: 12/20/2023 11:19
--- NOTE | 2023-12-20 10:27 | ED.GENADUL1 ---
HPI - General Adult General Chief complaint: Epistaxis Stated complaint: NOSE BLEED Time Seen by Provider: 12/20/23 10:21 Source: patient Mode of arrival: ambulance History of Present Illness HPI narrative: 78-year-old female presented because of a nosebleed which is now resolved. It was from the left side. She is on Eliquis. It started this morning but stopped on its own. She complains of some lower back pain, bilaterally. No dysuria or hematuria. She was released from this hospital yesterday after being admitted for dehydration and colitis. No injury. Related Data Home Medications Medication Instructions Recorded Confirmed apixaban 5 mg tablet (Eliquis) 5 mg PO Q12H 10/14/23 12/16/23 furosemide 40 mg tablet 40 mg PO DAILY 10/14/23 12/16/23 levothyroxine 88 mcg tablet 88 mcg PO DAILY 10/14/23 12/16/23 liothyronine 25 mcg tablet 25 mcg PO DAILY 10/14/23 12/16/23 metoprolol succinate 25 mg 12.5 mg PO .morning 10/14/23 12/16/23 tablet,extended release 24 hr aspirin 81 mg tablet,delayed 81 mg PO .morning 12/15/23 12/16/23 release atorvastatin 40 mg tablet (Lipitor) 40 mg PO .evening 12/15/23 12/16/23 empagliflozin 10 mg tablet 10 mg PO DAILY 12/15/23 12/16/23 (Jardiance) fenofibrate micronized 134 mg 134 mg PO .in the morning. 12/15/23 12/16/23 capsule lisinopril 5 mg tablet 5 mg PO DAILY 12/15/23 12/16/23 oxybutynin chloride 10 mg 10 mg PO .evening 12/15/23 12/16/23 tablet,extended release 24 hr potassium chloride 10 mEq 20 meq PO BID 12/15/23 12/16/23 tablet,extended release(part/cryst) Previous Rx's Medication Instructions Recorded amoxicillin 500 mg tablet 1,000 mg (2 x 500 mg) PO Q12H #60 12/19/23 tabs amoxicillin 875 mg-potassium 1 tab PO Q12H #30 tabs 12/19/23 clavulanate 125 mg tablet atorvastatin 40 mg tablet 40 mg PO QHS #30 tabs 12/19/23 Allergies Allergy/AdvReac Type Severity Reaction Status Date / Time No Known Drug Allergies Allergy Verified 12/15/23 20:09 Review of Systems ROS Narrative A ten point review of systems is negative except as noted above. [facility] Medical History (Updated 12/20/23 @ 12:25 by Ruddy Monique MD) RSV bronchitis ?J20.5 - Acute bronchitis due to respiratory syncytial virus (ICD-10) Atrial fibrillation ?I48.91 - Unspecified atrial fibrillation (ICD-10) Hypertension ?I10 - Essential (primary) hypertension (ICD-10) Type 2 diabetes mellitus ?E11.9 - Type 2 diabetes mellitus without complications (ICD-10) Acute exacerbation of chronic obstructive pulmonary disease ?J44.1 - Chronic obstructive pulmonary disease with (acute) exacerbation (ICD-10) Surgical History History of arthroplasty of right shoulder ?Z96.611 - Presence of right artificial shoulder joint (ICD-10) History of knee replacement ?Z96.659 - Presence of unspecified artificial knee joint (ICD-10) H/O: hysterectomy ?Z90.710 - Acquired absence of both cervix and uterus (ICD-10) Family History (Updated 12/16/23 @ 00:28 by Olesya Guzman) Sister Family history of CHF (congestive heart failure) Family history of cancer Family history of diabetes mellitus Family history of hypertension Mother Family history of cancer Brother Family history of cancer Social History (Updated 12/16/23 @ 00:30 by Olesya Guzman) Within the past year, how often did you have a drink containing alcohol: 2-3 times a week Within the past year, how many standard drinks containing alcohol did you have on a typical day: 1 or 2 Within the past year, how often did you have six or more drinks on one occasion: less than monthly Total score: 1 Score interpretation: A score of 3 or more indicates drinking is likely to affect patient's safety. Smoking status: Former smoker Non-prescribed substance use: denies use Previous occupational history: [employer] Highest level of school completed/degree received: high school graduate Are you now , , , , never or living with a partner: In a typical week, how many times do you talk on the telephone with family, friends, or neighbors: 3 or more times per week How often do you get together with friends or relatives: 3 or more times per week How often do you attend islam or gnosticism services: 1-3 times per year Do you belong to any clubs or organizations such as islam groups unions, fraternal or athletic groups, or school groups: no Total score: 1 Score interpretation: A score of less than or equal to 1 indicates the most socially isolated. Little interest or pleasure in doing things: more than half the days Feeling down, depressed, or hopeless: more than half the days Feel stressed/tense/nervous/anxious/difficulty sleeping: very much Life stressor details: medical issues. Due to disability, difficulty making decisions: No Do you think of yourself as: straight/heterosexual Gender Identity: female Exam Narrative Exam Narrative: Nurses note and vital signs reviewed and patient is not hypoxic. General: The patient appears well and in no apparent distress. Patient is resting comfortably on cart. Skin: Warm, dry, no pallor noted. There is no rash noted. Head: Normocephalic, atraumatic Eye: Normal conjunctiva, no drainage Ears, Nose, Mouth, and Throat: oral mucosa is moist. Nares patent. No epistaxis. A small amount of dried blood present in the left nares. Cardiovascular: Not tachycardic Respiratory: Patient is in no distress, no accessory muscle use, lungs are clear to auscultation, no wheezing, rales or rhonchi Back: No palpable tenderness to her back GI: Soft and nontender Musculoskeletal: The patient has no evidence of calf tenderness, no pitting edema, symmetrical pulses noted bilaterally Neurological: A&O, normal speech Psychiatric: Cooperative Constitutional Vital Signs, click to edit/add: Last Vital Signs Temp 98.1 F 12/20/23 10:06 Pulse 70 12/20/23 10:06 Resp 16 12/20/23 10:06 BP 142/96 H 12/20/23 10:06 Pulse Ox 97 12/20/23 10:12 O2 Del Method Room Air 12/20/23 10:12 Course Vital Signs Vital signs: Vital Signs Temperature 98.1 F 12/20/23 10:06 Pulse Rate 70 12/20/23 10:06 Respiratory Rate 16 12/20/23 10:06 Blood Pressure 142/96 H 12/20/23 10:06 Pulse Oximetry 99 12/20/23 10:06 Temperature 98.1 F 12/20/23 10:06 Pulse Rate 70 12/20/23 10:06 Respiratory Rate 16 12/20/23 10:06 Blood Pressure 142/96 H 12/20/23 10:06 Pulse Oximetry 97 12/20/23 10:12 Oxygen Delivery Method Room Air 12/20/23 10:12 Medical Decision Making MDM Narrative Medical decision making narrative: Her workup is negative including urinalysis and back films. She has no complaints of abdominal pain. I have spoken to her PCP and the patient will be discharged home. Follow-up in the office. She will return for worsening symptoms. Treatment diagnosis and follow-up were discussed with the patient and her family. Lab Data Lab results reviewed: Yes I reviewed the patient's lab results Labs: Lab Results 12/20/23 Range/Units 10:48 WBC 4.2 (4.0-11.0) 10^3/uL RBC 3.94 L (4.20-5.40) 10^6/uL Hgb 12.1 (12.0-16.0) g/dL Hct 38.8 (36.0-48.0) % MCV 98.5 (81.0-99.0) fL MCH 30.7 (26.7-34.0) pg MCHC 31.2 (29.9-35.2) g/dL RDW 12.9 (11.0-15.0) % Plt Count 232 (150-450) 10^3/uL MPV 12.0 (9.5-13.5) fL Neut % (Auto) 48.8 (43.0-75.0) % Lymph % (Auto) 33.3 (20.5-60.0) % [place] % (Auto) 13.9 H (1.7-12.0) % Eos % (Auto) 3.1 (0.9-7.0) % Baso % (Auto) 0.7 (0.2-2.0) % Neut # (Auto) 2.1 (1.4-6.5) 10^3/uL Lymph # (Auto) 1.4 (1.2-3.8) 10^3/uL [place] # (Auto) 0.6 (0.3-0.8) 10^3/uL Eos # (Auto) 0.1 (0.0-0.7) 10^3/uL Baso # (Auto) 0.0 (0.0-0.1) 10^3/uL Abs Immat Gran (auto) 0.01 (0.00-0.03) 10^3/uL Imm/Tot Granulo (auto) 0.2 (0.0-0.5) % Sodium 140 (136-145) mmol/L Potassium 3.6 (3.5-5.1) mmol/L Chloride 103 (98-107) mmol/L Carbon Dioxide 27.0 (21.0-32.0) mmol/L Anion Gap 13.6 BUN 14.0 (7.0-18.0) mg/dL Creatinine 1.14 H (0.55-1.02) mg/dL Est GFR ( Amer) 56 L (>=60) Est GFR (Non-Af Amer) 46 L (>=60) BUN/Creatinine Ratio 12.3 Glucose 127 H (74-106) mg/dL Calcium 9.9 (8.5-10.1) mg/dL Urine Color Lt. yellow (YELLOW) Urine Clarity Clear (CLEAR) Urine pH 6.0 (5.0-9.0) Ur Specific [place] 1.015 (1.005-1.025) Urine Protein Negative (NEG/TRACE) mg/dL Urine Glucose (UA) 500 A (NEGATIVE) mg/dL Urine Ketones Negative (NEGATIVE) mg/dL Urine Occult Blood Negative (NEGATIVE) Urine Nitrite Negative (NEGATIVE) Urine Bilirubin Negative (NEGATIVE) Urine Urobilinogen 0.2 (0.2-1.0) EU/dL Ur Leukocyte Esterase Negative (NEGATIVE) Urine RBC None seen (0-2) #/HPF Urine WBC None seen (NONE SEEN) #/HPF Ur Squamous Epith Cells Rare (NONE/RARE) #/LPF Urine Crystals Not Reportable Urine Bacteria None seen (NONE SEEN) #/HPF Urine Casts Not Reportable Urine Mucus None seen (NONE SEEN) Imaging Data Lumbar x-rays: Radiologist's impression: ITS Impressions Lumbar Spine X-Ray 12/20/23 10:27 IMPRESSION: 1. No acute osseous abnormality or new/worsening abnormality compared with 12/17/2023. 2. Severe lumbar spondylosis and mild multidimensional spinal malalignment. Electronically authenticated by: JERARDO COMBS Date: 12/20/2023 11:19 Discharge Plan Discharge Chief Complaint: Epistaxis Clinical Impression: Low back pain Patient Disposition: Home, Self-Care Time of Disposition Decision: 12:24 Condition: Good Mode of Transportation: Private Vehicle Prescriptions / Home Meds: No Action Eliquis 5 mg tablet 5 mg PO Q12H Patient Comments: taken 12/15/23 in the morning. furosemide 40 mg tablet 40 mg PO DAILY Patient Comments: taken 12/15/23 in the morning. levothyroxine 88 mcg tablet 88 mcg PO DAILY Patient Comments: taken 12/15/23 in the morning. liothyronine 25 mcg tablet 25 mcg PO DAILY Patient Comments: taken 12/15/23 in the morning. metoprolol succinate 25 mg tablet extended release 24 hr 12.5 mg PO .morning aspirin 81 mg tablet,delayed release (DR/EC) 81 mg PO .morning Patient Comments: taken 12/15/23 in the morning. fenofibrate micronized 134 mg capsule 134 mg PO .in the morning. Patient Comments: taken 12/15/23 in the morning. lisinopril 5 mg tablet 5 mg PO DAILY Patient Comments: taken 12/15/23 in the morning. potassium chloride 10 mEq tablet,ER particles/crystals 20 meq PO BID Patient Comments: taken on 12/15/23 in the morning. atorvastatin [Lipitor] 40 mg tablet 40 mg PO .evening Patient Comments: taken 12/14/23 in the evening. oxybutynin chloride 10 mg tablet extended release 24hr 10 mg PO .evening Patient Comments: taken on 12/14/23 in the evening. Jardiance 10 mg tablet 10 mg PO DAILY Patient Comments: taken 12/15/23 in the morning. atorvastatin 40 mg Tablet 40 mg PO QHS Qty: 30 11RF amoxicillin-pot clavulanate 875-125 mg tablet 1 tab PO Q12H Qty: 30 0RF Rx Instructions: with extra amoxicillin amoxicillin 500 mg tablet 1,000 mg PO Q12H Qty: 60 0RF Instructions: Acute Low Back Pain (ED) Stand Alone Forms: Portal Instructions Referrals: Toni Kraft MD [Primary Care Provider] - 1 week
[2023-12-20 11:10] LABS: Bilirubin Urine NEGATIVE (NEGATIVE); Blood Urine NEGATIVE (NEGATIVE); Clarity Urine CLEAR (CLEAR); Color Urine LT. YELLOW (YELLOW); Glucose Urine UA 500 mg/dL (NEGATIVE); Ketones Urine NEGATIVE (NEGATIVE); Leukocyte Esterase Urine NEGATIVE (NEGATIVE); Nitrite Urine NEGATIVE (NEGATIVE); Protein Urine NEGATIVE (NEG/TRACE); Specific Gravity Urine 1.015 (1.005-1.025); Urobilinogen Urine 0.2 EU/dL (0.2-1.0)
[2023-12-20 11:12] LABS: Basophils Percent Auto 0.7 % (0.2-2.0); Eosinophils Absolute Auto 0.1 10^3/uL (0.0-0.7); Eosinophils Percent Auto 3.1 % (0.9-7.0); Hematocrit 38.8 % (36.0-48.0); Hemoglobin 12.1 g/dL (12.0-16.0); Immature Granulocytes Abs Auto 0.01 10^3/uL (0.00-0.03); Immature Granulocytes Pct Auto 0.2 % (0.0-0.5); Lymphocytes Absolute Auto 1.4 10^3/uL (1.2-3.8); Lymphocytes Percent Auto 33.3 % (20.5-60.0); Mean Corpuscular HGB Conc 31.2 g/dL (29.9-35.2); Mean Corpuscular Hemoglobin 30.7 pg (26.7-34.0); Mean Corpuscular Volume 98.5 fL (81.0-99.0); Monocytes Absolute Auto 0.6 10^3/uL (0.3-0.8); Monocytes Percent Auto 13.9 % (1.7-12.0); Neutrophils Absolute Auto 2.1 10^3/uL (1.4-6.5); Neutrophils Percent Auto 48.8 % (43.0-75.0); Platelet Count 232 10^3/uL (150-450); Red Blood Count 3.94 10^6/uL (4.20-5.40); Red Cell Distribution Width 12.9 % (11.0-15.0); White Blood Count 4.2 10^3/uL (4.0-11.0)
[2023-12-20 11:17] LABS: Anion Gap 13.6; BUN Creatinine Ratio 12.3; Calcium 9.9 mg/dL (8.5-10.1); Chloride 103 mmol/L (98-107); Estimated GFR (African America 56 (>=60); Estimated GFR (Non-African Ame 46 (>=60); Glucose 127 mg/dL (74-106); Potassium 3.6 mmol/L (3.5-5.1); Sodium 140 mmol/L (136-145)
[2023-12-20 11:19] LABS: Bacteria Urine NONE SEEN #/HPF (NONE SEEN); Mucus Urine NONE SEEN (NONE SEEN); RBC Urine NONE SEEN #/HPF (0-2); Squamous Epithelial Cell Urine RARE #/LPF (NONE/RARE); WBC Urine NONE SEEN #/HPF (NONE SEEN)
== END 2023-12-20 12:39 | disposition home or self-care (01) ==
PROVIDERS: Emergency Provider Emergency Medicine; PCP Family Medicine
DX: M54.50 Low back pain, unspecified (principal); I48.91 Unspecified atrial fibrillation; I10 Essential (primary) hypertension; E11.9 Type 2 diabetes mellitus without complications; J44.9 Chronic obstructive pulmonary disease, unspecified; Z96.611 Presence of right artificial shoulder joint; Z79.01 Long term (current) use of anticoagulants; Z79.890 Hormone replacement therapy; Z79.899 Other long term (current) drug therapy; Z96.659 Presence of unspecified artificial knee joint; Z90.710 Acquired absence of both cervix and uterus; Z87.891 Personal history of nicotine dependence
CPT/HCPCS: 36415; 72100; 80048; 81001; 85025; 99284

== ENCOUNTER 2024-04-08 07:34 | Outpatient (RCR) | payer MEDICARE, SELFPAY ==
--- NOTE | 2023-12-22 14:04 | CR1_ITS ---
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
--- NOTE | 2024-01-19 14:26 | CR1_ITS ---
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
--- NOTE | 2024-02-16 13:09 | CR1_ITS ---
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
--- NOTE | 2024-03-18 14:14 | CR1_ITS ---
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
--- NOTE | 2024-04-08 13:20 | CR1_ITS ---
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
== END 2024-04-08 14:59 | disposition home or self-care (01) ==
LOC: CR 07:34
PROVIDERS: PCP Family Medicine; Visit Provider Internal Medicine
DX: I21.4 Non-ST elevation (NSTEMI) myocardial infarction (principal)
CPT/HCPCS: 93798

== ENCOUNTER 2024-05-27 09:49 | Outpatient (OUT) | payer MEDICARE, SELFPAY ==
[2024-05-27 10:30] LABS: Basophils Percent Auto 0.6 % (0.2-2.0); Eosinophils Absolute Auto 0.1 10^3/uL (0.0-0.7); Eosinophils Percent Auto 2.7 % (0.9-7.0); Hematocrit 36.1 % (36.0-48.0); Hemoglobin 11.4 g/dL (12.0-16.0); Lymphocytes Absolute Auto 1.5 10^3/uL (1.2-3.8); Lymphocytes Percent Auto 44.9 % (20.5-60.0); Mean Corpuscular HGB Conc 31.6 g/dL (29.9-35.2); Mean Corpuscular Hemoglobin 31.8 pg (26.7-34.0); Mean Corpuscular Volume 100.8 fL (81.0-99.0); Mean Platelet Volume 11.7 fL (9.5-13.5); Monocytes Absolute Auto 0.5 10^3/uL (0.3-0.8); Monocytes Percent Auto 13.8 % (1.7-12.0); Neutrophils Absolute Auto 1.3 10^3/uL (1.4-6.5); Platelet Count 159 10^3/uL (150-450); Red Blood Count 3.58 10^6/uL (4.20-5.40); Red Cell Distribution Width 13.1 % (11.0-15.0); White Blood Count 3.3 10^3/uL (4.0-11.0)
[2024-05-27 11:09] LABS: Alanine Aminotransferase 22 U/L (14-59); Albumin Globulin Ratio 1.3; Albumin Level 3.7 g/dL (3.4-5.0); Alkaline Phosphatase 91 U/L (46-116); Anion Gap 13.4; Aspartate Amino Transferase 20 U/L (15-37); BUN Creatinine Ratio 18.3; Bilirubin Total 0.9 mg/dL (0.2-1.0); Calcium 9.6 mg/dL (8.5-10.1); Carbon Dioxide 27.9 mmol/L (21.0-32.0); Chloride 106 mmol/L (98-107); Chol HDL Ratio 2.1; Cholesterol 123 mg/dL (<=200); Estimated GFR (African America >60 (>=60); Estimated GFR (Non-African Ame 51 (>=60); Globulin 2.9 g/dL; Glucose 106 mg/dL (74-106); HDL Cholesterol 58 mg/dL (40-60); LDL Cholesterol Calculated 49.4 mg/dL; Potassium 4.3 mmol/L (3.5-5.1); Sodium 143 mmol/L (136-145); TSH W/ REFLEX FT4 <0.007 uIU/mL (0.358-3.740); Total Protein 6.6 g/dL (6.4-8.2); Triglycerides 78 mg/dL (<=150); VLDL CHOLESTEROL 15.6 mg/dL
[2024-05-27 11:29] LABS: Free T4 0.94 ng/dL (0.76-1.46)
== END 2024-05-27 09:50 | disposition home or self-care (01) ==
LOC: LAB 09:51
PROVIDERS: PCP Family Medicine; Visit Provider Nurse Practitioner Family
DX: I50.22 Chronic systolic (congestive) heart failure (principal); E03.9 Hypothyroidism, unspecified; E78.2 Mixed hyperlipidemia
CPT/HCPCS: 36415; 80053; 80061; 84439; 84443; 85025

== ENCOUNTER 2024-06-24 12:52 | Outpatient (OUT) | payer MEDICARE, SELFPAY ==
--- NOTE | 2024-06-24 12:55 | MM_ITS ---
Patient Name: ABDON OROZCO MR#: [id number] : 1945 Exam Date: 06/24/2024 Ordering Doctor: DR BEN MATHUR . RADIOLOGY REPORT PROCEDURE: MM TOMOSYNTHESIS SCREENING BI COMPARISON: MM TOMOSYNTHESIS SCREENING BI, 06/21/2023. MG MAMM SCREEN 3D MIGUEL CAD, 06/20/2022. INDICATIONS: Screening Calculator Name NCI Breast Cancer Risk Assessment Tool 5 Year Breast Cancer Risk 8.70% Lifetime Breast Cancer Risk 15.00% Personal Breast Cancer No Personal Ovarian Cancer No Treatments HYSTERECTOMY Family Cancers Mother with breast cancer at age 38; Sister with breast cancer at age 50; Sister with breast cancer at age 69; Daughter with ovarian cancer at age 40. LOCATION: [facility] BREAST COMPOSITION: There are scattered areas of fibroglandular density. FINDINGS: DIAGNOSTIC CATEGORY 2--BENIGN FINDING. NO CHANGE FROM COMPARISON. Scattered benign-appearing calcifications are present. Scattered benign-appearing lymph nodes are present. RIGHT BREAST: No significant suspicious finding. Scattered nodules with a micro clip marker upper outer quadrant, stable. LEFT BREAST: No significant suspicious finding. RECOMMENDATIONS: ROUTINE MAMMOGRAM AND CLINICAL EVALUATION IN 12 MONTHS. PLEASE NOTE: A NORMAL MAMMOGRAM DOES NOT EXCLUDE THE POSSIBILITY OF BREAST CANCER. A CLINICALLY SUSPICIOUS PALPABLE LUMP SHOULD BE BIOPSIED. Dictated by: Matty Jurado MD on 06/25/2024 at 07:33 Approved by: Matty Jurado MD on 06/25/2024 at 07:39
== END 2024-06-24 12:53 | disposition home or self-care (01) ==
LOC: MAMMO 12:52
PROVIDERS: PCP Family Medicine; Visit Provider Family Medicine
DX: Z12.31 Encounter for screening mammogram for malignant neoplasm of breast (principal); Z80.3 Family history of malignant neoplasm of breast; Z80.41 Family history of malignant neoplasm of ovary
CPT/HCPCS: 77063; 77067

== ENCOUNTER 2025-01-23 11:35 | Outpatient (OUT) | payer MEDICARE, SELFPAY ==
--- OUTSIDE RECORDS SUMMARY | 2025-01-23 11:45 | XMS_ITS | CCD ---
Author Organization [facility] Care Team Providers Care Industrial Editor Name Role Phone DENZEL OHARA Admitting Unavailable DENZEL OHARA Attending Unavailable SELF, REFERRED Referring Unavailable BEN KRAFT Primary Care Unavailable KEVAN, DR CONTRERAS Admitting Unavailable KEVAN, DR CONTRERAS Attending Unavailable KEVAN, DR CONTRERAS Primary Care Unavailable KEVAN, DR CONTRERAS Consulting Unavailable ZIEBER, DR MARQUISE Amado Consulting Unavailable KEVAN, DR CONTRERAS Admitting Unavailable KEVAN, DR CONTRERAS Attending Unavailable KEVAN, DR CONTRERAS Primary Care Unavailable KEVAN, DR CONTRERAS Consulting Unavailable KEVAN, DR CONTRERAS Admitting Unavailable KEVAN, DR CONTRERAS Attending Unavailable KEVAN, DR CONTRERAS Primary Care Unavailable KEVAN, DR CONTRERAS Consulting Unavailable KEVAN, DR CONTRERAS Admitting Unavailable KEVAN, DR CONTRERAS Attending Unavailable KEVAN, DR CONTRERAS Primary Care Unavailable KEVAN, DR CONTRERAS Consulting Unavailable Ben Kraft Primary Care Physician Price Dejesus Attending Unavailable Price Dejesus Attending Unavailable Ben Kraft Referring Unavailable Jax ARREGUIN Attending Unavailable Price Dejesus Admitting Unavailable Price Dejesus Referring Unavailable Price Dejesus Attending Unavailable DIANE HITCHCOCK Attending Unavailable SAADIA MYLES Attending Unavailable Ben Kraft MD Primary Care Provider [phone] JOSE COLEY Attending Unavailable APLMARGARITO INTERIANO Attending Unavailable APLINGMARGARITO Referring Unavailable APLINGMARGARITO Attending Unavailable APLINGMARGARITO Attending Unavailable Allergies Allergy Classification Reported Allergen(s) Allergy Type Date of Onset Reaction(s) Facility (1 source) Amino Acids Drug Allergy [facility] Repository (1 source) Sulfonamides (Antibiotic) Drug allergy (disorder) 6 [facility] Repository (1 source) No Known Medication Allergies; 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: [No Known Medication Allergies] Propensity to adverse reactions (disorder) [facility] Repository (1 source) Sulfonamides (Antibiotic); 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: [SULFA (SULFONAMIDE ANTIBIOTICS)] Propensity to adverse reactions to drug (disorder) 6 [facility] Repository Medications Current Medications Medication Drug Class(es) Dates Sig (Normalized) Sig (Original) aspirin 81 mg delayed release oral tablet (5 sources) Platelet Aggregation Inhibitor, Nonsteroidal Anti-inflammatory Drug Start: 01-17-2024 take 1 mg by mouth once daily aspirin 81 mg Oral EC Tab mg tab(s), Oral, Daily, Refills(s) 0, Prophylaxis Start Date: 01/17/24 Status: Ordered atorvastatin 80 mg oral tablet (6 sources) HMG-CoA Reductase Inhibitor Start: 12-18-2023 take 1 tablet by mouth once daily atorvastatin 80 mg Tab 80 mg = 1 tab(s), Oral, Daily, Refills(s) 0, High cholesterol Start Date: 12/18/23 Status: Ordered Start: 11-03-2023 atorvastatin ( Lipitor) 80 MG tablet Take 40 mg by mouth at bedtime 11/03/2023 Active biotin 10 mg oral tablet (2 sources) biotin 18057 MCG tablet Take by mouth Active dapagliflozin 10 mg oral tablet (3 sources) Sodium-Glucose Cotransporter 2 Inhibitor dapagliflozin (Farxiga) 10 MG 10 mg in the morning. Active empagliflozin 10 mg oral tablet (3 sources) Sodium-Glucose Cotransporter 2 Inhibitor Start: 12-18-19 take 1 tablet by mouth once daily in the morning Jardiance 10 mg oral tablet 10 mg = 1 tab(s), Oral, qAM, Refills(s) 0, Blood glucose Start Date: 12/18/23 Status: Ordered fenofibrate 134 mg oral capsule (6 sources) Peroxisome Proliferator Receptor alpha Agonist Start: 12-18-19 take 1 capsule by mouth once daily fenofibrate 134 mg oral capsule 134 mg = 1 cap(s), Oral, Daily, Refills(s) 0, High cholesterol Start Date: 12/18/23 Status: Ordered ferrous sulfate 325 mg oral tablet (3 sources) ferrous sulfate 325 (65 Fe) MG tablet 1 (one) time each day at the same time Active Fish Oils (3 sources) omega-3 (fish oi l) 600 MG capsule 1 capsule 1 (one) time each day at the same time Active Furosemide (6 sources) Loop Diuretic Start: 01-17-20 furosemide Refills(s) 0, diuretic/water pill Start Date: 01/17/24 Status: Ordered Start: 01-17-2024 furosemide Ref ills(s) 0 Start Date: 01/17/24 Status: Ordered Start: 11-03-2023 take 1 tablet by lizbeth th in the morning furosemide (Lasix) 40 MG tablet Take 1 tablet by mouth in the morning. 11/03/2023 Active levothyroxine sodium 0.088 mg oral tablet (3 sources) l-Thyroxine take 1 tablet by mouth once daily levothyroxine (Synthroid, Levoxyl) 88 MCG tablet Take 1 tablet by mouth Daily Active liothyronine sodium 0.025 mg oral tablet (6 sources) l-Triiodothyronine Start: take 1 tablet by mouth once daily Cytomel 25 mcg Tab 25 mcg = 1 tab(s), Oral, Daily, Refills(s) 0, Thyroid Start Date: 12/18/23 Status: Ordered Start: 11-21-2023 liothyronine ( Cytomel) 25 MCG tablet 11/21/2023 Active lisinopril 5 mg oral tablet (6 sources) Angiotensin Converting Enzyme Inhibitor Start: 11-03-2023 End: 01-07-2025 take 1 tablet by mouth in the morning lisinopril 5 MG tablet Take 5 mg by mouth in the morning. 11/03/2023 01/07/2025 Discontinued (Med list cleanup) loratadine 10 mg oral tablet (2 sources) loratadine (Claritin) 10 MG tablet Take by mouth Active losartan potassium 50 mg oral tablet (3 sources) Angiotensin 2 Receptor Maura Start: 08-02-2023 losartan (Cozaar) 50 MG tablet 08/02/2023 Active 24 hr metoprolol succinate 25 mg extended release oral tablet (9 sources) beta-Adrenergic Maura Start: 05-10-2024 metoprolol succinate XL (Toprol-XL) 25 MG 24 hr tablet 05/10/2024 Active Start: 12-18-2023 metoprolol 25 mg ER Tab 12.5 mg = 0.5 tab(s), Oral, Daily, Refills(s) 0, High blood pressure Start Date: 12/18/23 Status: Ordered metoprolol tartr ate (Lopressor) 25 MG tablet every 12 (twelve) hours Active Multiple Vitamins-Minerals (HAIR SKIN & NAILS ADVANCED PO) (2 sources) Multiple Vitamins-Minerals (HAIR SKIN & NAILS ADVANCED PO) Take by mouth Active ondansetron 4 mg disintegrating oral tablet (3 sources) Serotonin-3 Receptor Antagonist Start: take 1 tablet by mouth every six hours as needed for nausea ondansetron 4 mg Dis Tab 4 mg = 1 tab(s), Oral, q6hr, PRN Nausea/Vomiting, Refills(s) 0 Start Date: 12/18/23 Status: Ordered 24 hr oxybutynin chloride 10 mg extended release oral tablet (6 sources) Cholinergic Muscarinic Antagonist Start: take 1 tablet by mouth once daily oxybutynin 10 mg ER Tab 10 mg = 1 tab(s), Oral, Daily, Refills(s) 0, Bladder problems Start Date: 12/18/23 Status: Ordered pantoprazole 40 mg delayed release oral tablet (6 sources) Proton Pump Inhibitor Start: take 1 tablet by mouth at bedtime pantoprazole (ProtoNix) 40 MG EC tablet Take 40 mg by mouth at bedtime 01/23/2024 Active Potassium Chloride (6 sources) Start: Potassium Chloride (Eqv-K-Tab) Oral, BID, Refills(s) 0, Prophylaxis Start Date: 01/17/24 Status: Ordered Start: 01-17-2024 Potassium Chlo ride (Eqv-K-Tab) Oral, BID, Refills(s) 0 Start Date: 01/17/24 Status: Ordered Start: 05-26-2023 take 2 tablets by mo uth in the morning potassium chloride CR (Klor-Con M10) 10 MEQ ER tablet Take 2 tablets by mouth in the morning and 2 tablets before bedtime. 05/26/2023 Active spironolactone 25 mg oral tablet (3 sources) Aldosterone Antagonist Start: 12-18-2023 take 1 tablet by mouth once daily spironolactone 25 mg Tab 25 mg = 1 tab(s), Oral, Daily, Refills(s) 0, diuretic/water pill Start Date: 12/18/23 Status: Ordered sucralfate 1000 mg oral tablet (5 sources) Aluminum Complex Start: 02-19-2024 End: 01-07-2025 sucralfate (Carafate) 1 g tablet Take 1 g by mouth in the morning and 1 g at noon and 1 g in the evening and 1 g before bedtime. 02/19/2024 01/07/2025 Discontinued (Med list cleanup) Start: 01-24-2024 End: 05-23-2024 take 1 tablet by mouth four times daily Carafate 1 gram Tab 1 gm = 1 tab(s), Oral, QID, X 30 day(s), # 120 tab(s), Refills(s) 3, Pharmacy: [facility] #[id number], 160, cm, 01/24/24 8:16:00 EDT, Height/Length Dosing, 71.2, kg, 01/24/24 8:16:00 EDT, Weight Dosing Start Date: 01/24/24 Stop Date: 05/23/24 Status: Ordered Ventolin HFA 90 mcg/inh Aerosol-Adpt (3 sources) Start: 12-18-2023 take 2 puff(s) by inhalation every four hours Ventolin HFA 90 mcg/inh Aerosol-Adpt 2 puff(s), Inhalation, q4hr Shortness of breath or wheezing, Refill(s) 0 Start Date: 12/18/23 Status: Ordered Completed/Discontinued Medications Medication Drug Class(es) Dates Sig (Normalized) Sig (Original) apixaban 5 mg oral tablet (6 sources) Factor Xa Inhibitor Start: 10-14-2023 Problems Active Problems Problem Classification Problem Date Documented Date Episodic/Chronic Acute myocardial infarction (3 sources) Myocardial infarction Onset: 10-18-2023 12-18-2023 Chronic Alcohol-related disorders (3 sources) Alcohol abuse 12-18-2023 Chronic Asthma (3 sources) Asthma 12-18-2023 Chronic Cardiac dysrhythmias (3 sources) Atrial fibrillation Onset: 10-14-2023 12-18-2023 Chronic Congestive heart failure; nonhypertensive (8 sources) Congestive heart failure; 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: [Diastolic heart failure] Onset: 05-19-2022 12-18-2023 Chronic Coronary atherosclerosis and other heart disease (3 sources) History of myocardial infarction 12-18-2023 Chronic Deficiency and other anemia (3 sources) Iron deficiency anemia 12-18-2023 Episodic Diabetes mellitus without complication (3 sources) Diabetes mellitus 12-18-2023 Chronic Diabetes mellitus without complication (1 source) Other abnormal glucose; 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: [OTHER ABNORMAL GLUCOSE] Onset: 09-15-2022 Episodic Disorders of lipid metabolism (15 sources) Hyperlipidemia, unspecified; 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: [Hyperlipidemia] Onset: 09-09-2022 Chronic Diverticulosis and diverticulitis (4 sources) Diverticular disease; 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: [Diverticula of intestine] Onset: 02-07-2024 12-18-2023 Chronic Esophageal disorders (4 sources) Gastroesophageal reflux disease; 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: [Gastroesophageal reflux disease without esophagitis] Onset: 02-07-2024 12-18-2023 Chronic Essential hypertension (3 sources) Essential hypertension 12-18-2023 Chronic Gastritis and duodenitis (1 source) Gastritis; 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: [Other gastritis without bleeding] Onset: 02-07-2024 Episodic Heart valve disorders (3 sources) Mitral valve regurgitation 12-18-2023 Chronic Hemorrhoids (1 source) Hemorrhoids; 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: [Unspecified hemorrhoids] Onset: 02-07-2024 Episodic Malaise and fatigue (1 source) Other fatigue; 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: [OTHER FATIGUE] Onset: 09-15-2022 Episodic Nutritional deficiencies (4 sources) Vitamin D deficiency, unspecified; 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: [Vitamin D deficiency] Onset: 09-15-2022 12-18-2023 Chronic Osteoarthritis (2 sources) Arthritis of first carpometacarpal joint of left hand; 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: [Unilateral primary osteoarthritis of first carpometacarpal joint, left hand] 01-07-2025 Chronic Other aftercare (1 source) Long-term current use of anticoagulant; 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: [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] Onset: 01-17-2024 Episodic Other and ill-defined heart disease (3 sources) Ventricular hypertrophy 12-18-2023 Chronic Other connective tissue disease (2 sources) Pain in right hand; 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: [Pain in right hand] 01-07-2025 Episodic Other connective tissue disease (4 sources) Triggering of digit; 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: [Trigger finger, right middle finger] 01-07-2025 Episodic Other lower respiratory disease (1 source) Dyspnea, unspecified; 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: [DYSPNEA UNSPECIFIED] Onset: 11-02-2022 Episodic Other screening for suspected conditions (not mental disorders or infectious disease) (9 sources) Encounter for screening for malignant neoplasm of rectum; 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: [Encounter for screening mammogram for malignant neoplasm of breast] Onset: 06-20-2022 Episodic Pulmonary heart disease (3 sources) Pulmonary hypertension 12-18-2023 Chronic Residual codes; unclassified (3 sources) Obstructive sleep apnea syndrome 12-18-2023 Chronic Residual codes; unclassified (1 source) Family history of malignant neoplasm of digestive organ; 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: [Family history of malignant neoplasm of digestive organs] Onset: 02-07-2024 Episodic Thyroid disorders (2 sources) Hypothyroidism, unspecified; 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: [Hypothyroidism, unspecified] Onset: 05-22-2024 Chronic Unclassified (3 sources) CONTACT W/AND (SUSP) EXPOS COVID-19; 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: [CONTACT W/AND (SUSP) EXPOS COVID-19] Onset: 11-02-2022 Unclassified (1 source) COUGH, UNSPECIFIED; 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: [COUGH, UNSPECIFIED] Onset: 11-02-2022 Unclassified (3 sources) Diverticulitis 12-18-2023 Past or Other Problems Problem Classification Problem Date Documented Da te Episodic/Chronic Cardiac dysrhythmias (3 sources) Bradycardia Onset: 06-21-2018 12-18-2023 Episodic Residual codes; unclassified (1 source) Family [...] Test Name Value Interpretation Reference Range Facility Office Visiton 12-27-2024 Follow-up visit [id number] Rachel Orozco 1945 F Date Provider Department Center 12/27/2024 [id number] JIMENEZ CARD [facility] No family history on file Level of Service:06179 NM OFFICE/OUTPATIENT ESTABLISHED LOW MDM 20 MIN Reason for Visit and Comments: Follow-up [[id number]] [facility] Office Visiton 05-22-2024 Follow-up visit [id number] Rachel Orozco 1945 F Date Provider Department Center 05/22/2024 Derrick-SAADIA MYLES CARD [facility] No family history on file Level of Service:20240 NM OFFICE/OUTPATIENT ESTABLISHED MOD MDM 30 MIN Reason for Visit and Comments: Follow-up [[id number]] - 5 month follow up Normal [facility] Ambulatory Visit Summaryon 0 02-07-2024 Ambulatory Visit Summary RACHEL OROZCO :1945 Visit Date:02/07/2024 Ambulatory Visit Instructions Your Diagnosis Diverticulosis GERD (gastroesophageal reflux disease) Erosive gastritis Hemorrhoid Family hx of colon cancer Your Care Team Attending Physician - Anjelica WILSON, Price Magana Primary Care Physician - Ben Kraft MD This Is Your Medications List Contact prescribing physician if questions or concerns albuterol (Ventolin HFA 90 mcg/inh Aerosol-Adpt) apixaban (apixaban 5 mg oral tablet) aspirin (aspirin 81 mg Oral EC Tab) atorvastatin (atorvastatin 80 mg Tab) empagliflozin (Jardiance 10 mg oral tablet) fenofibrate (fenofibrate 134 mg oral capsule) furosemide liothyronine (Cytomel 25 mcg Tab) lisinopril (lisinopril 5 mg Tab) metoprolol (metoprolol 25 mg ER Tab) ondansetron (ondansetron 4 mg Dis Tab) oxybutynin (oxybutynin 10 mg ER Tab) pantoprazole (Protonix 40 mg Tab-DR) potassium chloride (Potassium Chloride (Eqv-K-Tab)) spironolactone (spironolactone 25 mg Tab) sucralfate (Carafate 1 gram Tab) Procedures Performed Colonoscopy (01/24/2024), Esophagogastroduodenoscop y (01/24/2024), Colonoscopy (01/20/2016), Colonoscopy (10/15/2010), Arthroplasty of right knee, Arthroplasty of right shoulder, Cardiac catheterization, Hysterectomy, Tubal ligation. Discharge Vitals Heart Rate (Peripheral) 74 Blood Pressure 124/70 Height 63 in Height 160 cm Weight 156.42 lb Weight 71.1 kg BMI 27.77 Medications What How Much When Instructions Unchanged albuterol (Ventolin HFA 90 mcg/ inh Aerosol-Adpt) 2 Puffs Inhalation Every 4 hours as needed for Shortness of breath or wheezing Contact prescribing physician if questions or concerns Unchanged apixaban (apixaban 5 mg oral tablet) 1 Tablets By Mouth 2 times a day 5 Unknown, Oral, 0 Refill(s) Contact prescribing physician if questions or concerns Unchanged aspirin (aspirin 81 mg Oral EC Tab) By Mouth Every day Contact prescribing physician if questions or concerns Unchanged atorvastatin (atorvastatin 80 mg Tab) 1 Tablets By Mouth Every day Contact prescribing physician if questions or concerns Unchanged empagliflozin (Jardiance 10 mg oral tablet) 1 Tablets By Mouth Once a day (in the morning) Contact prescribing physician if questions or concerns Unchanged fenofibrate (fenofibrate 134 mg oral capsule) 1 Capsules By Mouth Every day Contact prescribing physician if questions or concerns Unchanged furosemide Contact prescribing physician if questions or concerns Unchanged liothyronine (Cytomel 25 mcg Tab) 1 Tablets By Mouth Every day Contact prescribing physician if questions or concerns Unchanged lisinopril (lisinopril 5 mg Tab) 1 Tablets By Mouth Every day Contact prescribing physician if questions or concerns Unchanged metoprolol (metoprolol 25 mg ER Tab) 0.5 Tablets By Mouth Every day Contact prescribing physician if questions or concerns Unchanged ondansetron (ondansetron 4 mg Dis Tab) 1 Tablets By Mouth Every 6 hours as needed for Nausea/Vomiting Contact prescribing physician if questions or concerns Unchanged oxybutynin (oxybutynin 10 mg ER Tab) 1 Tablets By Mouth Every day Contact prescribing physician if questions or concerns Unchanged pantoprazole (Protonix 40 mg Tab-DR) 1 Tablets By Mouth Every day Contact prescribing physician if questions or concerns Unchanged potassium chloride (Potassium Chloride (Eqv-K-Tab)) By Mouth 2 times a day Contact prescribing physician if questions or concerns Unchanged spironolactone (spironolactone 25 mg Tab) 1 Tablets By Mouth Every day Contact prescribing physician if questions or concerns Unchanged sucralfate (Carafate 1 gram Tab) 1 Tablets By Mouth 4 times a day Duration: 30 Days Contact prescribing physician if questions or concerns Allergies No Known Allergies Problems Ongoing - Any problem that you are currently receiving treatment for. Alcohol abuse Asthma Atrial fibrillation Bradycardia Congestive heart failure Diabetes mellitus Diastolic heart failure Diverticulitis Diverticulosis Essential hypertension GERD (gastroesophageal reflux disease) History of myocardial infarction Hyperlipidemia Hypertriglyceridemia Iron deficiency anemia Mitral regurgitation Myocardial infarction Obstructive sleep apnea syndrome Pulmonary hypertension Pure hypercholesterolemia Ventricular hypertrophy Vitamin D deficiency Patient Survey You may receive a survey via text or e-mail asking about your office visit. Please share your experience with us by completing your survey. We appreciate your feedback and thank you for choosing us for your care. Normal [facility] Gastroenterology Office/Clin ic Noteon 02-07-2024 Gastroenterology Office/Clinic Note Chief Complaint EGD/ colonoscopy HPI Staff Patient is a 78 year old female here today to review results from EGD and colonoscopy. Patient has questions regarding Carafate. Assessment/Plan: 01/17/[address] of the abdomen (R93.5: Abnormal findings on diagnostic imaging of other abdominal regions, including retroperitoneum) Abnormal weight loss (R63.4: Abnormal weight loss) Chronic anticoagulation (Z79.01: detention (current) use of anticoagulants) Colitis (K52.9: Noninfective gastroenteritis and colitis, unspecified) Decreased appetite (R63.0: Anorexia) Rectal bleed (K62.5: Hemorrhage of anus and rectum) Colonoscopy Findings: 01/24/2024 Narrowing of the sigmoid colon secondary to diverticulosis. Change scope from pediatric to gastroscope to get through the narrowing. Severe diverticulosis in the left colon status post biopsies Internal hemorrhoids EGD Findings: 01/24/2024 Z-line was irregular at 41 cm Diffuse mild erythema throughout the whole stomach consistent with gastropathy status post biopsies Normal duodenum status post biopsies Diagnosis Comment (Verified) B. The pathologic findings are compatible with chronic active erosive gastritis. A few brown pigments are present in mucosal surface and superficial lamina propria (highlighted by iron stain). Clinical correlation is warranted to rule out pill induced gastritis (iron pill), as clinically indicated. Final Diagnosis (Verified) A: DUODENUM, BIOPSY: ? DUODENAL MUCOSA WITHIN NORMAL LIMITS. B: STOMACH, BIOPSY: ? ANTRAL MUCOSA WITH MILD CHRONIC ACTIVE GASTRITIS. ? GASTRIC BODY MUCOSA WITH NO SIGNIFICANT PATHOLOGIC CHANGES. ? NO INTESTINAL METAPLASIA IDENTIFIED. ? NO H. PYLORI MICROORGANISMS IDENTIFIED WITH IMMUNOSTAIN (SEE COMMENT). C: COLON, RANDOM BIOPSY: ? COLONIC MUCOSA WITH LYMPHOID AGGREGATES, WITHIN NORMAL LIMITS. History of Present Illness I have reviewed HPI staff note, most recent labs and imaging, more than 30 minutes spent reviewing the chart, during encounter, placing orders and counseling the patient. Pt is doing well on PPI and Carafate QID symptoms are under good control except for some nausea asking about repeat colonoscopy given family hx of colon cancer in her brother in his 70s Review of Systems PHQ Score Initial Depression Screen Score: 0 SCORE All systems reviewed, negative except as mentioned above Physical Exam Vitals & Measurements HR: 74(Peripheral) BP: 124/70 HT: 63 in HT: 160 cm WT: 71.1 kg WT: 156.42 lb BMI: 27.77 General: alert, no acute distress HEENT: atraumatic normocephalic Cardiovascular: regular rate and rhythm, normal peripheral perfusion Respiratory: Lungs CTA, respirations non labored Extremities: no deformity, no trauma Abdomen: Benign, soft, nontender nondistended Assessment/Plan 1. Diverticulosis (K57.90: Diverticulosis of intestine, part unspecified, without perforation or abscess without bleeding) 2. GERD (gastroesophageal reflux disease) (K21.9: Gastro-esophageal reflux disease without esophagitis) 3. Erosive gastritis (K29.60: Other gastritis without bleeding) 4. Hemorrhoid (K64.9: Unspecified hemorrhoids) 5. Family hx of colon cancer (Z80.0: Family history of malignant neoplasm of digestive organs) Continue PPI and Carafate Cut down Carafate to 3 times a day and try to wean off completely after 1 to 2 months Patient has a family history of colon cancer in her brother and has been receiving colonoscopy every 5 years. Given severe narrowing in the colon, repeat colonoscopy after 5 years might not be recommended. Patient will discuss it with PCP Follow-up No qualifying data available Problem List/Past Medical History Ongoing Alcohol abuse Asthma Atrial fibrillation Bradycardia Congestive heart failure Diabetes mellitus Diastolic heart failure Diverticulitis Diverticulosis Essential hypertension GERD (gastroesophageal reflux disease) History of myocardial infarction Hyperlipidemia Hypertriglyceridemia Iron deficiency anemia Mitral regurgitation Myocardial infarction Obstructive sleep apnea syndrome Pulmonary hypertension Pure hypercholesterolemia Ventricular hypertrophy Vitamin D deficiency Historical No qualifying data Procedure/Surgical History Colonoscopy (01/24/2024), Esophagogastroduodenoscop y (01/24/2024), Colonoscopy (01/20/2016), Colonoscopy (10/15/2010), Arthroplasty of right knee, Arthroplasty of right shoulder, Cardiac catheterization, Hysterectomy, Tubal ligation. Medications apixaban 5 mg oral tablet, 5 mg= 1 tab(s), Oral, BID aspirin 81 mg Oral EC Tab, Oral, Daily atorvastatin 80 mg Tab, 80 mg= 1 tab(s), Oral, Daily Carafate 1 gram Tab, 1 gm= 1 tab(s), Oral, QID, 3 refills Cytomel 25 mcg Tab, 25 mcg= 1 tab(s), Oral, Daily fenofibrate 134 mg oral capsule, 134 mg= 1 cap(s), Oral, Daily furosemide Jardiance 10 mg oral tablet, 10 mg= 1 tab(s), Oral, qAM lisinopril 5 mg Tab, 5 mg= 1 tab(s), Oral, (more content not included)... Normal [facility] Comment on above: Result Comment: Elec tronically Signed By: Price Dejesus MD\.br\Date and Time Signed: 02/07/24 12:51 EDT Tadeo 02-06-2024 Endoscopic Procedure Report - Other Patient: RACHEL OROZCO Age: 78 years Sex: Female : 1945 Associated Diagnoses: None Author: Price Dejesus MD Pre-Procedure Procedure Date 12/29/2023 09:11:00 . Procedure Type: Colonoscopy with biopsy. Procedure provider Performed by Price Dejesus MD. Current history and physical Documented on chart. Colonoscopy ([id number]) on 01/20/2016 at 70 Years. Colonoscopy ([id number]) on 10/15/2010 at 65 Years. Hysterectomy ([id number]). Arthroplasty of right knee ([id number]). Arthroplasty of right shoulder ([id number]). Tubal ligation ([id number]). Cardiac catheterization ([id number]).. Past Medical History No active or resolved past medical history items have been selected or recorded.. Family History Primary malignant neoplasm of colon Brother Primary malignant neoplasm of female breast Mother Sister . Procedure History Colonoscopy ([id number]) on 01/20/2016 at 70 Years. Colonoscopy ([id number]) on 10/15/2010 at 65 Years. Hysterectomy (876089968). Arthroplasty of right knee (7765151298). Arthroplasty of right shoulder (9479207467). Tubal ligation (700425188). Cardiac catheterization (75865449)..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 Post-Procedure Complications: none. Estimated blood loss: none. Specimens: sent to pathology. Devices/ implants: none left in place. Impression and Plan Diagnosis: Diverticulos (more content not included)... Normal [facility] Comment on above: Other Comment: Dori esteban Attachment - attachment storage system not supported [id number] Can be viewed in source systemMissing Attachment - attachment storage system not supported [id number] Can be viewed in source systemMissing Attachment - attachment storage system not supported [id number] Can be viewed in source systemMissPT PAL Attachment - attachment storage system not supported [id number] Can be viewed in source systemMissPT PAL Attachment - attachment storage system not supported [id number] Can be viewed in source systemMissPT PAL Attachment - attachment storage system not supported [id number] Can be viewed in source system Esophagogastroduodenosco py Patient: RACHEL OROZCO Age: 78 years Sex: Female : 1945 Associated Diagnoses: None Author: Price Dejesus MD Pre-Procedure Procedure Date 12/29/2023 09:18:00 . Procedure Type: Esophagogastroduodenoscop y with biopsy. Procedure provider Performed by Price Dejesus MD. Current history and physical Documented on chart. Informed Consent After discussing the rationale, risks and benefits, and alternatives to this procedure, the patient provided signed consent for the procedure. Pre-procedure diagnosis: Diagnostic: Decreased appetite. Medications (Selected) Inpatient Medications Ordered Lactated Ringers IV Patricia 1000 mL 1,000 mL: 1,000 mL, IV, 100 mL/hr, Routine, Start date 01/24/24 7:32:00 EDT, 10 hour(s), Total volume (mL): 1,000, 71.2 kg, 1.78, m2 Sodium Chloride 0.9% IV Patricia 1000 mL 1,000 mL: 1,000 mL, IV, 20 mL/hr, Routine, Start date 01/24/24 6:40:00 EDT, 50 hour(s), Total volume (mL): 1,000, 71.2 kg, 1.78, m2 Documented Medications Documented Cytomel 25 mcg Tab: 25 mcg = 1 tab(s), Oral, Daily, Refills(s) 0, Thyroid Jardiance 10 mg oral tablet: 10 mg = 1 tab(s), Oral, qAM, Refills(s) 0, Blood glucose Potassium Chloride (Eqv-K-Tab): Oral, BID, Refills(s) 0, Prophylaxis Protonix 40 mg Tab-DR: 40 mg = 1 tab(s), Oral, Daily, Refills(s) 0, Control of stomach acid Ventolin HFA 90 mcg/inh Aerosol-Adpt: 2 puff(s), Inhalation, q4hr Shortness of breath or wheezing, Refill(s) 0 apixaban 5 mg oral tablet: 5 mg = 1 tab(s), Oral, BID, 5 Unknown, Oral, 0 Refill(s), Refills(s) 0, Blood Thinner aspirin 81 mg Oral EC Tab: mg tab(s), Oral, Daily, Refills(s) 0, Prophylaxis atorvastatin 80 mg Tab: 80 mg = 1 tab(s), Oral, Daily, Refills(s) 0, High cholesterol fenofibrate 134 mg oral capsule: 134 mg = 1 cap(s), Oral, Daily, Refills(s) 0, High cholesterol furosemide: Refills(s) 0, diuretic/water pill lisinopril 5 mg Tab: 5 mg = 1 tab(s), Oral, Daily, Refills(s) 0, High blood pressure metoprolol 25 mg ER Tab: 12.5 mg = 0.5 tab(s), Oral, Daily, Refills(s) 0, High blood pressure ondansetron 4 mg Dis Tab: 4 mg = 1 tab(s), Oral, q6hr, PRN Nausea/Vomiting, Refills(s) 0 oxybutynin 10 mg ER Tab: 10 mg = 1 tab(s), Oral, Daily, Refills(s) 0, Bladder problems spironolactone 25 mg Tab: 25 mg = 1 tab(s), Oral, Daily, Refills(s) 0, diuretic/water pill ASA Classification: Class III. . Monitoring: See anesthesia record. . Procedure The procedure was performed in the hospital. See anesthesia record for sedation given during procedure. The patient was positioned starting in the left lateral decubitus position. Endoscope type used was, introduced orally, advanced to the 2nd portion of the duodenum. No difficulty was encountered during the procedure. Views were excellent. The patient tolerated the procedure well. Findings Z-line was irregular at 41 cm Diffuse mild erythema throughout the whole stomach consistent with gastropathy status post biopsies Normal duodenum status post biopsies Images Procedure images: Rec1_hd_video_2024_03_20T __38_954.jpg Rec1_hd_video_2024_03_20T 09__55_296.jpg Rec1_hd_video_2024_03_20T 09__07_149.jpg Rec1_hd_video_2024__20T 09__12_936.jpg Rec1_hd_video_4__20T __41_567.jpg Rec1_hd_video_2024_03_20T 09_04_19_263.jpg . Post-Procedure Complications: none. Estimated blood loss: none. Specimens: sent to pathology. Devices/ implants: none left in place. Impression and Plan EGD: Diagnosis: Gastropathy (YSZ89-EG K31.9, Working, Medical). Course: Progressing as expected. Education and Follow-up: Counseled: Family. Notes: Continue acid suppression medication Start Carafate 1 g 4 times a day Resume Eliquis tomorrow Avoid NSAIDs. Normal [facility] Comment on above: Other Comment: Dori esteban Attachment - attachment storage system not supported [id number] Can be viewed in source system Missing Attachment - attachment storage system not supported [id number] Can be viewed in source system Missing Attachment - attachment storage system not supported [id number] Can be viewed in source system Missing Attachment - attachment storage system not supported [id number] Can be viewed in source system Missing Attachment - attachment storage system not supported [id number] Can be viewed in source system Missing Attachment - attachment storage system not supported [id number] Can be viewed in source system Main OR PACU I Recordon 032 Main OR PACU I Record PACU Phase I Docum ent Type FT Summary Primary Physician: Price Dejesus MD Finalized Date/Time: 01/24/24 11:04:03 Pt. Name: RACHEL OROZCO /Sex: 1945 Female Med Rec #: [id number] Physician: Price Dejesus MD Financial #: [id number] Pt. Type: O Room/Bed: / Admit/Disch: 01/24/24 08:06:10 - Institution: Case Times PACU I FT Pre-Care Text: Identifies barriers to communication and implements measures to provide psychological support Develops individualized plan of care, and ensures continuity of care Maintains patient's dignity and privacy, and maintains patient confidentiality Identifies and reports philosophical, cultural, and spiritual beliefs and values Identifies individual values and wishes concerning care Implements aseptic technique, and administers prescribed antibiotic therapy and immunizing agents as ordered Evaluates postoperative tissue perfusion Implements thermoregulation measures, and monitors body temperature Evaluates postoperative respiratory status Evaluates postoperative cardiac status Evaluates postoperative neurological status Assesses pain control, collaborated in initiating patient-controlled analgesia and implements alternative methods of pain control Verifies allergies, administers prescribed medications and solutions, evaluates response to medications Entry 1 In PACU I 01/24/24 10:27:00 Discharge from PACU 01/24/24 10:57:00 I Outcomes Met? Yes Last Modified By: Bahman RN, Deepali Rodriguez 01/24/24 11:03:52 Post-Care Text: The patient demonstrates knowledge of the expected response to the operative or invasive procedure The patient's care is consistent with the individualized perioperative plan of care The patient's right to privacy is maintained The patient's value system, lifestyle, ethnicity, and culture are considered, respected, and incorporated into the perioperative plan of care The patient participates in decisions affecting his or her perioperative plan of care The patient is free from signs and symptoms of infection The patient has wound/tissue perfusion consistent with or improved from baseline levels established preoperatively The patient is at or returning to normothermia at the conclusion of the immediate postoperative period The patient's respiratory function is consistent with or improved from baseline levels established preoperatively The patient's cardiovascular status is consistent with or improved from baseline levels established preoperatively The patient's cardiovascular status is consistent with or improved from baseline levels established preoperatively The patient demonstrates and/or reports adequate pain control throughout the perioperative period The patient received appropriate medication(s), safely administered during the perioperative period Acuity Level PACU I FT Entry 1 Start Time 01/24/24 10:27:00 Stop Time 01/24/24 10:57:00 Acuity Level Acuity Level I Last Modified By: Deepali Ruggiero RN 01/24/24 11:04:00 Finalized By: Deepali Ruggiero RN Document Signatures Signed By: Deepali Ruggiero RN 01/24/24 11:04 Normal [facility] Main OR Preoperative Recordo n 01-24-2024 Main OR Preoperative Record Holding Area Document Type FT Summary Primary Physician: Price Dejesus MD Finalized Date/Time: 01/24/24 08:16:22 Pt. Name: RACHEL OROZCO/Sex: 1945 Female Med Rec #: [id number] Physician: Price Dejesus MD Financial #: [id number] Pt. Type: O Room/Bed: / Admit/Disch: 01/24/24 08:06:10 - Institution: Case Times Holding FT Pre-Care Text: Verifies consent for planned procedure, identifies individual values and wishes concerning care, includes family members in perioperative teaching Secures patient's records' belongings, and valuables, maintains patient's dignity and privacy, and maintains patient confidentiality Entry 1 In Holding 01/24/24 08:10:00 Outcomes Met? Yes Last Modified By: Yo UREÑA, Hoda Gerard 01/24/24 08:14:23 Post-Care Text: The patient participates in decisions affecting his or her perioperative plan of care The patient's right to privacy is maintained Surgery Checklist FT Entry 1 Patient Birthday, ID Band Procedure History and Physical, Identification: Check, Patient Verification: Surgical Consent, With Participation Patient NPO after Midnight: Yes Date/Time: 01/24/24 03:15:00 Personal Items: Dentures, Glasses Personal Items glasses, clothes, Comment: shoes, upper/lower dentures, right knee replacement Limitations: n/a Complaints of Pain: No Pain Comment: denies Operative Site n/a Marking: Marked By: n/a Availability Equipment Verified: Does Patient Smoke No Patient states Yes Comment - Adult daughter- Jie postop adult Supervision supervision available Case Cancelled in No Holding Area see comments below for reason Last Modified By: Hoda Ram RN 01/24/24 08:16:20 General Comments: Pt finished colon prep at 0315, states stool is clear liquid, has been NPO since. /MDRN Finalized By: Hoda Ram RN Document Signatures Signed By: Hoda Ram RN 01/24/24 08:16 Normal [facility] Monitor Recordon 01-24-2024 Monitor Record [id number]#1.00TIFF Normal [facility] Monitor Record [id number]#1.00TIFF [facility] Consent for Procedure/Surger yon 01-18-2024 Consent for Procedure/Surgery [id number]#1.00TIFF [facility] Lab Reportson 01-18-2024 Lab Reports [id number]#1.00TIFF [facility] Ambulatory Visit Summaryon 0 01-17-2024 Ambulatory Visit Summary JANEENBearRACHEL :1945 Visit Date:01/17/2024 Ambulatory Visit Instructions Your Diagnosis Abnormal CT of the abdomen Abnormal weight loss Chronic anticoagulation Colitis Decreased appetite Rectal bleed Your Care Team Attending Physician - Anjelica WILSON, Price Magana Primary Care Physician - Ben Kraft MD This Is Your Medications List Contact prescribing physician if questions or concerns albuterol (Ventolin HFA 90 mcg/inh Aerosol-Adpt) apixaban (apixaban 5 mg oral tablet) aspirin (aspirin 81 mg Oral EC Tab) atorvastatin (atorvastatin 80 mg Tab) empagliflozin (Jardiance 10 mg oral tablet) fenofibrate (fenofibrate 134 mg oral capsule) furosemide liothyronine (Cytomel 25 mcg Tab) lisinopril (lisinopril 5 mg Tab) metoprolol (metoprolol 25 mg ER Tab) ondansetron (ondansetron 4 mg Dis Tab) oxybutynin (oxybutynin 10 mg ER Tab) pantoprazole (Protonix 40 mg Tab-DR) potassium chloride (Potassium Chloride (Eqv-K-Tab)) spironolactone (spironolactone 25 mg Tab) Procedures Performed Colonoscopy (01/20/2016), Colonoscopy (10/15/2010), Arthroplasty of right knee, Arthroplasty of right shoulder, Cardiac catheterization, Hysterectomy, Tubal ligation. Discharge Vitals Temperature (Temporal Artery) 36.2 ?C Heart Rate (Peripheral) 76 Blood Pressure 115/72 Height 160 cm Height 63 in Weight 71.2 kg Weight 156.64 lb BMI 27.81 Medications What How Much When Instructions Unchanged albuterol (Ventolin HFA 90 mcg/ inh Aerosol-Adpt) 2 Puffs Inhalation Every 4 hours as needed for Shortness of breath or wheezing Contact prescribing physician if questions or concerns Unchanged apixaban (apixaban 5 mg oral tablet) 1 Tablets By Mouth 2 times a day 5 Unknown, Oral, 0 Refill(s) Contact prescribing physician if questions or concerns Unchanged aspirin (aspirin 81 mg Oral EC Tab) By Mouth Every day Contact prescribing physician if questions or concerns Unchanged atorvastatin (atorvastatin 80 mg Tab) 1 Tablets By Mouth Every day Contact prescribing physician if questions or concerns Unchanged empagliflozin (Jardiance 10 mg oral tablet) 1 Tablets By Mouth Once a day (in the morning) Contact prescribing physician if questions or concerns Unchanged fenofibrate (fenofibrate 134 mg oral capsule) 1 Capsules By Mouth Every day Contact prescribing physician if questions or concerns Unchanged furosemide Contact prescribing physician if questions or concerns Unchanged liothyronine (Cytomel 25 mcg Tab) 1 Tablets By Mouth Every day Contact prescribing physician if questions or concerns Unchanged lisinopril (lisinopril 5 mg Tab) 1 Tablets By Mouth Every day Contact prescribing physician if questions or concerns Unchanged metoprolol (metoprolol 25 mg ER Tab) 0.5 Tablets By Mouth Every day Contact prescribing physician if questions or concerns Unchanged ondansetron (ondansetron 4 mg Dis Tab) 1 Tablets By Mouth Every 6 hours as needed for Nausea/Vomiting Contact prescribing physician if questions or concerns Unchanged oxybutynin (oxybutynin 10 mg ER Tab) 1 Tablets By Mouth Every day Contact prescribing physician if questions or concerns Unchanged pantoprazole (Protonix 40 mg Tab-DR) 1 Tablets By Mouth Every day Contact prescribing physician if questions or concerns Unchanged potassium chloride (Potassium Chloride (Eqv-K-Tab)) By Mouth 2 times a day Contact prescribing physician if questions or concerns Unchanged spironolactone (spironolactone 25 mg Tab) 1 Tablets By Mouth Every day Contact prescribing physician if questions or concerns Allergies No Known Allergies No Known Medication Allergies Problems Ongoing - Any problem that you are currently receiving treatment for. Alcohol abuse Asthma Atrial fibrillation Bradycardia Congestive heart failure Diabetes mellitus Diastolic heart failure Diverticulitis Diverticulosis Essential hypertension GERD (gastroesophageal reflux disease) History of myocardial infarction Hyperlipidemia Hypertriglyceridemia Iron deficiency anemia Mitral regurgitation Myocardial infarction Obstructive sleep apnea syndrome Pulmonary hypertension Pure hypercholesterolemia Ventricular hypertrophy Vitamin D deficiency Patient Survey You may receive a survey via text or e-mail asking about your office visit. Please share your experience with us by completing your survey. We appreciate your feedback and thank you for choosing us for your care. Normal [facility] ED Note-Physicianon 01-17-20 24 ED Note-Physician [id number]#1.00TIFF Normal [facility] Gastroenterology Office/Clin ic Noteon 01-17-2024 Gastroenterology Office/Clinic Note Chief Complaint Weight loss, no appetite and nausea. HPI Staff Patient is a 78 year old female who was referred by Dr Kraft 01/04/2024 for diverticulitis. Patient was originally referred to Dr Arreguin on 12/01/2023 for screening colonoscopy and diverticulitis. Patients last colonoscopy was 01/20/2016. [facility]: 12/15/2023 - Evaluation for nausea, abdominal cramping and dry heaving. Patient is on Eliquis for A-fib and Occult Blood- positive. CT scan with left colitis Referral Note: Sent: 12/01/2023 13:09:02 EST Addendum by Yudelka Croft LPN on December 25, 2023 15:18 EST (Verified) After review of medical records, patient with CT confirmed colitis. Per Dr. Arreguin, patient would better be served by gastroenterology. PCP office made aware. Appointment with this office cancelled. dx nausea , abd. pain change in bowel habits. History of Present Illness pt was not feeling well went to the hospital and treated for colitis with abx for 5 days was told to have blood in the stool ? diverticulitis pt has been losing weight and has no appetite - used to love to eat but not as much now lost 30 pounds Got COVID in August then RSV with concerns for heart attack but this was ruled out I have reviewed HPI staff note, most recent labs and imaging, more than 30 minutes spent reviewing the chart, during encounter, placing orders and counseling the patient. Review of Systems PHQ Score Initial Depression Screen Score: 0 SCORE All systems reviewed, negative except as mentioned above Physical Exam Vitals & Measurements T: 36.2 ?C(Temporal Artery) HR: 76(Peripheral) BP: 115/72 HT: 63 in HT: 160 cm WT: 71.2 kg WT: 156.64 lb BMI: 27.81 General: alert, no acute distress HEENT: atraumatic normocephalic Cardiovascular: regular rate and rhythm, normal peripheral perfusion Respiratory: Lungs CTA, respirations non labored Extremities: no deformity, no trauma Abdomen: Benign, soft, nontender nondistended Assessment/Plan Abnormal CT of the abdomen (R93.5: Abnormal findings on diagnostic imaging of other abdominal regions, including retroperitoneum) Ordered: Colonoscopy (Hospital Procedure) EGD Endoscopy (Hospital Procedure) Abnormal weight loss (R63.4: Abnormal weight loss) Ordered: Colonoscopy (Hospital Procedure) EGD Endoscopy (Hospital Procedure) Chronic anticoagulation (Z79.01: detention (current) use of anticoagulants) Colitis (K52.9: Noninfective gastroenteritis and colitis, unspecified) Ordered: Colonoscopy (Hospital Procedure) EGD Endoscopy (Hospital Procedure) Decreased appetite (R63.0: Anorexia) Ordered: Colonoscopy (Hospital Procedure) EGD Endoscopy (Hospital Procedure) Rectal bleed (K62.5: Hemorrhage of anus and rectum) Ordered: Colonoscopy (Hospital Procedure) EGD Endoscopy (Hospital Procedure) schedule EGD with bx of the stomach and SB schedule colonoscopy with TI eval and assess the inflammation Portions of this record may have been created with voice recognition artificial intelligence software, specifically [employer], [employer] and or [employer]. Substitutions may have occurred due to the inherent limitations of voice recognition and artificial intelligence software. Follow-up No qualifying data available Problem List/Past Medical History Ongoing Alcohol abuse Asthma Atrial fibrillation Bradycardia Congestive heart failure Diabetes mellitus Diastolic heart failure Diverticulitis Diverticulosis Essential hypertension GERD (gastroesophageal reflux disease) History of myocardial infarction Hyperlipidemia Hypertriglyceridemia Iron deficiency anemia Mitral regurgitation Myocardial infarction Obstructive sleep apnea syndrome Pulmonary hypertension Pure hypercholesterolemia Ventricular hypertrophy Vitamin D deficiency Historical No qualifying data Procedure/Surgical History Colonoscopy (01/20/2016), Colonoscopy (10/15/2010), Arthroplasty of right knee, Arthroplasty of right shoulder, Cardiac catheterization, Hysterectomy, Tubal ligation. Medications apixaban 5 mg oral tablet, 5 mg= 1 tab(s), Oral, BID aspirin 81 mg Oral EC Tab, Oral, Daily atorvastatin 80 mg Tab, 80 mg= 1 tab(s), Oral, Daily, Not taking Cytomel 25 mcg Tab, 25 mcg= 1 tab(s), Oral, Daily fenofibrate 134 mg oral capsule, 134 mg= 1 cap(s), Oral, Daily furosemide Jardiance 10 mg oral tablet, 10 mg= 1 tab(s), Oral, qAM, Not taking lisinopril 5 mg Tab, 5 mg= 1 tab(s), Oral, Daily metoprolol 25 mg ER Tab, 12.5 mg= 0.5 tab(s), Oral, Daily ondansetron 4 mg Dis Tab, 4 mg= 1 tab(s), Oral, q6hr, PRN, Not taking oxybutynin 10 mg ER Tab, 10 mg= 1 tab(s), Oral, Daily Potassium Chloride (Eqv-K-Tab), Oral, BID Protonix 40 mg Tab-DR, 40 mg= 1 tab(s), Oral, Daily spironolactone 25 mg Tab, 25 mg= 1 tab(s), Oral, Daily Ventolin HFA 90 mcg/inh Aerosol-Adpt, 2 puff(s), Inhalation, q4hr, PRN, Not taking Allergies No Known Allergies No K (more content not included)... [facility] Comment on above: Result Comment: Elec tronically Signed By: Anjelica WILSON, Price Magana\.br\Date and Time Signed: 01/17/24 12:12 EDT Lab Reportson 01-17-2024 Lab Reports [id number]#1.00TIFF [facility] Lab Reports [id number]#1.00TIFF Normal [facility] Lab Reports [id number]#1.00TIFF Normal [facility] Lab Reports [id number]#1.00TIFF Normal [facility] RAD - CT Reporton 01-17-2024 RAD - CT Report [id number]#1.00TIFF Normal [facility] Physician Referralon 024 Physician Referral [id number]#1.00TIFF Normal [facility] Physician Referralon 024 Physician Referral [id number]#1.00TIFF Normal [facility] Physician Referral [id number]#1.00TIFF Normal [facility] Covid-19 PCR ([facility])on 10-07 SARS-CoV-2 (COVID-19) RNA CIARAN+probe Ql (Unsp spec) Not detected Normal NOT DETECTED [facility] Comment on above: Result Comment: When [...] for this test is supported by the [place] of Health and Human Service's declaration that [...] used). Performed By: #### C VDTBH #### [facility] [address] [place] [address] Dr. Mildred Álvarez INFLUENZA A AND B AGon 10-26 INFLUANE SEE BELOW Normal [facility] Comment on above: Result Comment: Nega tive for Flu A protein angiten. Infection due to Flu A cannot be ruled out. Flu A angiten in the sample may be below the detection limit of the test. Performed By: #### I NFLUAB ####[facility] [address] [address]DrBrendan Álvarez INFLUBNEGH SEE BELOW Normal [facility] Comment on above: Result Comment: Nega tive for Flu B protein antigen. Infection due to Flu B cannot be ruled out. Flu B antigen in the sample may be below the detection limit of the test. Performed By: #### I NFLUAB ####[facility] [address] [place], [place] [address]DrBrendan Álvarez INFLUENZA A AG Negative Normal NEGATIVE SEE COMMENT [facility] Comment on above: Performed By: #### I NFLUAB ####[facility] [address] [place], [place] [address]Dr. Mildred Álvarez INFLUENZA B AG Negative Normal NEGATIVE SEE COMMENT [facility] Comment on above: Performed By: #### I NFLUAB ####[facility] [address] [place], [place] [address]DrBrendan Álvarez INTERNAL CONTROLS Within Normal Limits Normal Wi thin Normal Limits [facility] Comment on above: Performed By: #### I NFLUAB ####[facility] [address] [place], [place] [address]DrBrendan Álvarez OCC BLD IMMUNO SCREENon OCCULT BLOOD Negative Normal NEGATIVE [facility] Comment on above: Performed By: #### O BSCRN #### [facility] [address] [place] [address] Dr. Mildred Álvarez CBC AUTO DIFFon 09-09-2022 BASO # 0.0 103/ul Normal 0.0-0.1 [facility] Comment on above: Performed By: #### C BC #### [facility] [address] [address] [address] Mildred Álvarez Basophils/100 WBC (Bld) 0.9 % Normal 0.2-2.0 [facility] Comment on above: Performed By: #### C BC #### [facility] [address] [address] [address] Mildred Álvarez EO # 0.2 103/ul Normal 0.0-0.7 [facility] Comment on above: Performed By: #### C BC #### [facility] [address] [address] [address] Mildred Álvarez Eosinophils/100 WBC (Bld) 4.8 % Normal 0.9-7.0 [facility] Comment on above: Performed By: #### C BC #### [facility] [address] [place] [address] Dr. Mildred Álvarez Erythrocyte distribution width (RBC) [Ratio] 12.5 % Normal 11.0-15.0 [facility] Comment on above: Performed By: #### C BC #### [facility] [address] [place] [address] Dr. Mildred Álvarez Hematocrit (Bld) [Volume fraction] 36.7 % Normal 36.0-48.0 [facility] Comment on above: Performed By: #### C BC #### [facility] [address] [place] [address] Dr. Mildred Álvarez Hemoglobin (Bld) [Mass/Vol] 11.9 g/dL Critically low 12.0-16.0 [facility] Comment on above: Performed By: #### C BC #### [facility] [address] [place] [address] Dr. Mildred Álvarez IG # 0.02 10e3/ul Normal 0.00-0.03 [facility] Comment on above: Performed By: #### C BC #### [facility] [address] [place] [address] Dr. Mildred Álvarez IG % 0.5 % Normal 0.0-0.5 [facility] Comment on above: Performed By: #### C BC #### [facility] [address] [place] [address] Dr. Mildred Álvarez LYMPH # 1.6 103/ul Normal 1.2-3.8 [facility] Comment on above: Performed By: #### C BC #### [facility] [address] [place] [address] Dr. Mildred Álvarez Lymphocytes/100 WBC (Bld) 37.4 % Normal 20.5-60.0 [facility] Comment on above: Performed By: #### C BC #### [facility] [address] [place] [address] Dr. Mildred Álvarez MANUAL DIFF REQ NO Normal [facility] Comment on above: Performed By: #### C BC #### [facility] [address] [place] [address] Dr. Mildred Álvarez MCH (RBC) [Entitic mass] 32.2 pg Normal 26.7-34.0 [facility] Comment on above: Performed By: #### C BC #### [facility] [address] [place] [address] Dr. Mildred Álvarez MCHC (RBC) [Mass/Vol] 32.4 g/dL Normal 29.9-35.2 [facility] Comment on above: Performed By: #### C BC #### [facility] [address] [place] [address] Dr. Mildred Álvarez MCV (RBC) [Entitic vol] 99.5 fL Critically high 81.0-99 .0 [facility] Comment on above: Performed By: #### C BC #### [facility] [address] [place] [address] Dr. Mildred Álvarez MONO # 0.6 103/ul Normal 0.3-0.8 [facility] Comment on above: Performed By: #### C BC #### [facility] [address] [place] [address] Dr. Mildred Álvarez Monocytes/100 WBC (Bld) 13.5 % Critically high 1.7-12. 0 [facility] Comment on above: Performed By: #### C BC #### [facility] [address] [place] [address] Dr. Mildred Álvarez NEUT # 1.9 103/ul Normal 1.4-6.5 [facility] Comment on above: Performed By: #### C BC #### [facility] [address] [place] [address] Dr. Mildred Álvarez Neutrophils/100 WBC (Bld) 42.9 % Critically low 43.0-75.0 [facility] Comment on above: Performed By: #### C BC #### [facility] [address] [place] [address] Dr. Mildred Álvarez Platelet mean volume (Bld) [Entitic vol] 11.1 fL Normal 9.5-13.5 [facility] Comment on above: Performed By: #### C BC #### [facility] [address] [place] [address] Dr. Mildred Álvarez PLT 212 103/ul Normal 150-450 [facility] Comment on above: Performed By: #### C BC #### [facility] [address] [place] [address] Dr. Mildred Álvarez RBC 3.69 106/ul Critically low 4.20-5.40 [facility] Comment on above: Performed By: #### C BC #### [facility] [address] [place] [address] Dr. Mildred Álvarez WBC 4.4 103/ul Normal 4.0-11.0 [facility] Comment on above: Performed By: #### C BC #### [facility] [address] [place] [address] Dr. Mildred Álvarez FREE T3on 09-09-2022 FREE T3 1.92 pg/mlL Critically low 2.18-3.98 [facility] Comment on above: Performed By: #### C MP, T4, FT3, LIPID, TSH #### [facility] [address] [place] [address] Dr. Mildred Álvarez GLYCOHEMOGLOBIN A1Con 2021 ADA RECOMMENDATION SEE BELOW Normal [facility] Comment on above: Result Comment: ADA RECOMMENDED LIMIT 4.0 - 6.0 ADA THERAPEUTIC TARGET < 7.0 ACTION SUGGESTED > 7.0 Performed By: #### A 1C #### [facility] [address] [place] [address] Dr. Mildred Álvarez Glucose [Mass/Vol] 140 mg/dL Normal [facility] Comment on above: Performed By: #### A 1C #### [facility] [address] [place] [address] Dr. Mildred Álvarez HbA1c (Bld) [Mass fraction] 6.5 % Critically high 4.5-6.2 [facility] Comment on above: Performed By: #### A 1C #### [facility] [address] [place] [address] Dr. Mildred Álvarez LIPID PROFILEon 09-09-2022 CHOL-HDL RATIO NORM SEE BELOW Normal [facility] Comment on above: Result Comment: 3.3 - 4.4 LOW RISK 4.4 - 7.1 AVERAGE RISK 7.1 - 11.0 MODERATE RISK >11.0 HIGH RISK Performed By: #### C MP, T4, FT3, LIPID, TSH #### [facility] [address] [place] [address] Dr. Mildred Álvarez Cholesterol [Mass/Vol] 153 mg/dL Normal <=200 Th [facility] Comment on above: Performed By: #### C MP, T4, FT3, LIPID, TSH #### [facility] [address] [place] [address] Dr. Mildred Álvarez Cholesterol in HDL [Mass/Vol] 44 mg/dL Normal 40-60 [facility] Comment on above: Performed By: #### C MP, T4, FT3, LIPID, TSH #### [facility] [address] [place] [address] Dr. Mildred Álvarez Cholesterol in LDL [Mass/Vol] 82.6 mg/dL Normal [facility] Comment on above: Performed By: #### C MP, T4, FT3, LIPID, TSH #### [facility] [address] [place] [address] Dr. Mildred Álvarez Cholesterol.total/Choles terol in HDL [Mass ratio] 3.5 {ratio} Normal [facility] Comment on above: Performed By: #### C MP, T4, FT3, LIPID, TSH #### [facility] [address] [address] [address] Mildred Álvarez HDL NORMAL > or = 60 mg/dl - LO W CARDIOVASCULAR RISK <40 mg/dl - HIGH CARDIOVASCULAR RISK Normal [facility] Comment on above: Performed By: #### C MP, T4, FT3, LIPID, TSH #### [facility] [address] [place] [address] Dr. Mildred Álvarez LDL CALC NORMAL SEE BELOW Normal [facility] Comment on above: Result Comment: <100 mg/dl OPTIMAL 100 - 129 mg/dl NEAR OR ABOVE OPTIMAL 130 - 159 mg/dl BORDERLINE HIGH 160 - 189 mg/dl HIGH >190 mg/dl VERY HIGH Performed By: #### C MP, T4, FT3, LIPID, TSH #### [facility] [address] [place] [address] Dr. Mildred Álvarez Triglyceride [Mass/Vol] 132 mg/dL Normal <=150 T [facility] Comment on above: Performed By: #### C MP, T4, FT3, LIPID, TSH #### [facility] [address] [place] [address] Dr. Mildred Álvarez VLDL CALC 26.4 mg/dL Normal [facility] Comment on above: Performed By: #### C MP, T4, FT3, LIPID, TSH #### [facility] [address] [place] [address] Dr. Mildred Álvarez PROF 14(COMP METB)on 022 Albumin [Mass/Vol] 3.7 g/dL Normal 3.4-5.0 [facility] Comment on above: Performed By: #### C MP, T4, FT3, LIPID, TSH #### [facility] [address] [place] [address] Dr. Mildred Álvarez Albumin/Globulin [Mass ratio] 1.2 {ratio} Normal [facility] Comment on above: Performed By: #### C MP, T4, FT3, LIPID, TSH #### [facility] [address] [place] [address] Dr. Mildred Álvarez ALP [Catalytic activity/Vol] 52 U/L Normal 46-116 [facility] Comment on above: Performed By: #### C MP, T4, FT3, LIPID, TSH #### [facility] [address] [place] [address] Dr. Mildred Álvarez ALT [Catalytic activity/Vol] 35 U/L Normal 14-59 [facility] Comment on above: Performed By: #### C MP, T4, FT3, LIPID, TSH #### [facility] [address] [place] [address] Dr. Mildred Álvarez Anion gap [Moles/Vol] 9.5 mmol/L Normal [facility] Comment on above: Performed By: #### C MP, T4, FT3, LIPID, TSH #### [facility] [address] [place] [address] Dr. Mildred Álvarez AST [Catalytic activity/Vol] 19 U/L Normal 15-37 [facility] Comment on above: Performed By: #### C MP, T4, FT3, LIPID, TSH #### [facility] [address] [place] [address] Dr. Mildred Álvarez Bilirubin [Mass/Vol] 0.3 mg/dL Normal 0.2-1.0 [facility] Comment on above: Performed By: #### C MP, T4, FT3, LIPID, TSH #### [facility] [address] [place] [address] Dr. Mildred Álvarez Calcium [Mass/Vol] 9.4 mg/dL Normal 8.5-10.1 [facility] Comment on above: Performed By: #### C MP, T4, FT3, LIPID, TSH #### [facility] [address] [place] [address] Dr. Mildred Álvarez Chloride [Moles/Vol] 106 mmol/L Normal 98-107 [facility] Comment on above: Performed By: #### C MP, T4, FT3, LIPID, TSH #### [facility] [address] [place] [address] Dr. Mildred Álvarez CO2 [Moles/Vol] 28.9 mmol/L Normal 21.0-32.0 [facility] Comment on above: Performed By: #### C MP, T4, FT3, LIPID, TSH #### [facility] [address] [place] [address] Dr. Mildred Álvarez Creatinine [Mass/Vol] 1.04 mg/dL Critically high 0.55-1.02 [facility] Comment on above: Performed By: #### C MP, T4, FT3, LIPID, TSH #### [facility] [address] [place] [address] Dr. Mildred Álvarez EGFR-AF BARBADIAN >60 Normal >=60 [facility] Comment on above: Performed By: #### C MP, T4, FT3, LIPID, TSH #### [facility] [address] [place] [address] Dr. Mildred Álvarez EGFR-NON AF [place]IAN >60 Normal >=60 [facility] Comment on above: Performed By: #### C MP, T4, FT3, LIPID, TSH #### [facility] [address] [place] [address] Dr. Mildred Álvarez Globulin (S) [Mass/Vol] 3.2 g/dL Normal [facility] Comment on above: Performed By: #### C MP, T4, FT3, LIPID, TSH #### [facility] [address] [place] [address] Dr. Mildred Álvarez Glucose [Mass/Vol] 131 mg/dL Critically high 74-106 [facility] Comment on above: Performed By: #### C MP, T4, FT3, LIPID, TSH #### [facility] [address] [place] [address] Dr. Mildred Álvarez Potassium [Moles/Vol] 4.4 mmol/L Normal 3.5-5.1 [facility] Comment on above: Performed By: #### C MP, T4, FT3, LIPID, TSH #### [facility] [address] [place] [address] Dr. Mildred Álvarez Protein [Mass/Vol] 6.9 g/dL Normal 6.4-8.2 [facility] Comment on above: Performed By: #### C MP, T4, FT3, LIPID, TSH #### [facility] [address] [address] [address] Mildred Álvarez Sodium [Moles/Vol] 140 mmol/L Normal 136-145 [facility] Comment on above: Performed By: #### C MP, T4, FT3, LIPID, TSH #### [facility] [address] [address] [address] Mildred Álvarez Urea nitrogen [Mass/Vol] 28.0 mg/dL Critically high 7.0-18 .0 [facility] Comment on above: Performed By: #### C MP, T4, FT3, LIPID, TSH #### [facility] [address] [address] [address] Mildred Álvarez Urea nitrogen/Creatinine [Mass ratio] 26.9 mg/mg Normal [facility] Comment on above: Performed By: #### C MP, T4, FT3, LIPID, TSH #### [facility] [address] [place] [address] Dr. Mildred Álvarez T4on 09-09-2022 T4 [Mass/Vol] 5.10 ug/dL Normal 4.80-13.90 [facility] Comment on above: Performed By: #### C MP, T4, FT3, LIPID, TSH #### [facility] [address] [place] [address] Dr. Mildred Álvarez TSHon 09-09-2022 TSH 0.641 uIU/mL Normal 0.358-3.74 0 [facility] Comment on above: Performed By: #### C MP, T4, FT3, LIPID, TSH #### [facility] [address] [place] [address] Dr. Mildred Álvarez VITAMIN D 25 OHon 09-09-2022 VIT D 25-OH 45.3 ng/mL Normal [facility] Comment on above: Performed By: #### V ITAD ####[facility] [id number] [address]Dr. Mildred Álvarez VIT D RANGES SEE BELOW Normal [facility] Comment on above: Result Comment: <20 ng/mL Vit D deficient 20 - <30 ng/mL Vit D insufficient 30 - 100 ng/mL Vit D sufficient >100 ng/mL Potential Toxicity Performed By: #### V ITAD ####[facility] [id number] [place], [place] [address]VkBrendan Álvarez MG MAMM SCREEN 3D MIGUEL CADon 06-20-2022 MG MAMM SCREEN 3D MIGUEL CAD Patient: RACHEL OROZCO Exam Date: 06/20/2022 : 1945 Gender:F Ordering : DR BEN KRAFT . Admission #: [id number] Family : Order #: [id number] CLICK HERE TO VIEW EXAM RADIOLOGY REPORT [...] ovarian cancer at age 41. LOCATION: [facility] BREAST COMPOSITION: Scattered areas fibroglandular density. [...] M.D. on 06/20/2022 at 12:49 Normal [facility] Vital Signs Date Time Vital Sign Value Performing Clinician Facility 02-07-2024 12:27-0400 Diastolic blood pressure 70 mm[Hg] Price Dejesus [facility] 02-07-2024 12:27-0400 Mean blood pressure 88 mm[Hg] Price Dejesus [facility] 02-07-2024 12:27-0400 Systolic blood pressure 124 mm[Hg] Mohamad Mouchli [facility] 02-07-2024 12:16-0400 Blood Pressure Location Mohamad Mouchli [facility] 02-07-2024 12:16-0400 Diastolic blood pressure 46 mm[Hg] Mohamad Mouchli [facility] 02-07-2024 12:16-0400 Heart rate 74 /min Mohamad Mouchli [facility] 02-07-2024 12:16-0400 Systolic blood pressure 98 mm[Hg] Mohamad Mouchli [facility] 01-24-2024 10:52-0400 Diastolic blood pressure 77 mm[Hg] Mohamad Mouchli [facility] 01-24-2024 10:52-0400 Heart rate 59 /min Mohamad Mouchli [facility] 01-24-2024 10:52-0400 Respiratory rate 37 /min Mohamad Mouchli [facility] 01-24-2024 10:52-0400 SaO2% (BldA) [Mass fraction] 100 % Mohamad Mouchli [facility] 01-24-2024 10:52-0400 Systolic blood pressure 96 mm[Hg] Mohamad Mouchli [facility] 01-24-2024 10:40-0400 Diastolic blood pressure 63 mm[Hg] Mohamad Mouchli [facility] 01-24-2024 10:40-0400 Heart rate 62 /min Mohamad Mouchli [facility] 01-24-2024 10:40-0400 Respiratory rate 20 /min Mohamad Mouchli [facility] 01-24-2024 10:40-0400 SaO2% (BldA) [Mass fraction] 100 % Mohamad Mouchli [facility] 01-24-2024 10:40-0400 Systolic blood pressure 128 mm[Hg] Mohamad Mouchli [facility] 01-24-2024 10:35-0400 Diastolic blood pressure 92 mm[Hg] Mohamad Mouchli [facility] 01-24-2024 10:35-0400 Heart rate 74 /min Mohamad Mouchli [facility] 01-24-2024 10:35-0400 Respiratory rate 21 /min Mohamad Mouchli [facility] 01-24-2024 10:35-0400 SaO2% (BldA) [Mass fraction] 96 % Mohamad Mouchli [facility] 01-24-2024 10:35-0400 Systolic blood pressure 116 mm[Hg] Mohamad Mouchli [facility] 01-24-2024 10:27-0400 Body temperature 96.98 [degF] Mohamad Mouchli [facility] 01-24-2024 10:25-0400 Respiratory rate 14 /min Mohamad Mouchli [facility] 01-24-2024 10:20-0400 Respiratory rate 14 /min Mohamad Mouchli [facility] 01-24-2024 10:15-0400 Respiratory rate 14 /min Mohamad Mouchli [facility] 01-24-2024 08:23-0400 Blood Pressure Location Mohamad Mouchli [facility] 01-24-2024 08:23-0400 Body temperature 97.52 [degF] Mohamad Mouchli [facility] 01-17-2024 11:55-0400 Blood Pressure Location Mohamad Mouchli [facility] 01-17-2024 11:55-0400 Body temperature 97.16 [degF] Mohamad Mouchli [facility] 01-17-2024 11:55-0400 Diastolic blood pressure 72 mm[Hg] Mohamad Mouchli [facility] 01-17-2024 11:55-0400 Heart rate 76 /min Ruthd Mouchli [facility] 01-17-2024 11:55-0400 Systolic blood pressure 115 mm[Hg] Mohamad Mouchli [facility] Encounters Encounter Date Encounter Type Care Provider Facility Start: 01-07-2025 End: 01-07-2025 Bamboo flowsheet Jose PENDLETON Work Phone: [facility] Start: 01-07-2025 End: 01-07-2025 Bamboo flowsheet Jose Coley PA Work Phone: [facility] Start: 01-07-2025 End: 01-07-2025 ambulatory JOSE COLEY Not Available Start: 01-07-2025 End: 01-07-2025 Office outpatient visit 40 minutes Jose PENDLETON Work Phone: [facility] Comment on above: Right hand pain (Denise joanne Dx); Trigger middle finger of right hand; Trigger ring finger of right hand; Arthritis of carpometacarpal (CMC) joint of left thumb Start: 12-27-2024 End: 12-27-2024 ambulatory DIANE HITCHCOCK [facility] Start: 05-29-2024 End: 05-29-2024 ambulatory MARGARITO Denny APLING Not Available Start: 05-22-2024 End: 05-22-2024 ambulatory SAADIA MARY [facility] Start: 03-18-2024 End: 03-18-2024 ambulatory MARGARITO Denny APLING Not Available Start: 02-07-2024 End: 02-08-2024 ambulatory Price Dejesus [facility] Start: 02-07-2024 End: 02-07-2024 Patient encounter procedure Price Dejesus [facility] Start: 01-24-2024 End: 01-25-2024 ambulatory Price Dejesus Facility[facility] Start: 01-24-2024 End: 01-24-2024 Patient encounter procedure Price Dejesus [facility] Start: 01-22-2024 End: 01-22-2024 ambulatory MARGARITO Denny APLING Not Available Start: 01-17-2024 End: 01-18-2024 ambulatory Price Dejesus Facility:[facility] Start: 01-17-2024 End: 01-17-2024 Patient encounter procedure Price Dejesus [facility] Start: 01-04-2024 ambulatory Price Dejesus Facilit y:R[facility]ael[facility] Start: 01-02-2024 ambulatory Ben Kraft Facility:[facility] Start: 12-01-2023 ambulatory Price Buckner y:[facility] Start: 10-26-2022 End: 10-26-[address] BEN KRAFT Facility:[facility] Start: 09-12-2022 End: 09-12-[address] BEN KRAFT Facility:[facility] Start: 09-09-2022 End: 09-10-[address] BEN KRAFT Facility:[facility] Start: 06-20-2022 End: 06-21-[address] BEN KRAFT Facility:[facility] Start: 06-12-2019 End: 06-12-2019 Emergency department patient visit DENZEL Moustapha LEV Facility:[facility] Procedures Date Procedure Procedure Detail Performing Clinician Start: 12-27-2024 Follow-up visit Follow-up DIANE HITCHCOCK Start: 01-24-2024 Colonoscopy Mohamad Mouchli Start: 01-24-2024 Esophagogastroduodenoscopy Mohamad Mouch li Start: 01-20-2016 Colonoscopy Mohamad Mouchli Start: 10-15-2010 Colonoscopy Mohamad Mouchli Arthroplasty of right shoulder Mohamad Mouchli Cardiac catheterization Moha mad Mouchli Hysterectomy Mohamad Mouchli Ligation of fallopian tube M ohamad Mouchli Repair of joint of right knee Mohamad Mouchli Plan of Treatment Date Care Activity Detail Author Start: 02-18-2025 End: 02-18-2025 Patient encounter procedure 02/18/2025 9:00 AM EDT Office Visit [facility] [address] [place] [address] Jose Coley PA [address] [facility] [address] [place] [address] [facility] Start: 07-07-2024 Influenza vaccination Influenza Vacc ine (#1) [facility] Immunizations Immunization Date Immunization Notes Care Provider Fa cility 09-11-2023 influenza virus vaccine, unspecified formulation ilabalberto [facility] 08-30-2022 SARS-CoV-2 (COVID-19 ) [id number] ilabalberto [facility] 03-08-2022 SARS-CoV-2 mRNA (bvcwobnsoye-ksxi-wtfco se) vaccine ilabalberto [facility] 08-17-2021 SARS-CoV-2 (COVID-19 ) mRNA BNT-162b2 vax [facility] 01-01-2021 SARS-CoV-2 (COVID-19 ) mRNA BNT-162b2 vax [facility] Comment on above: Result Comment: 2023: [id number] 12-11-2020 SARS-CoV-2 (COVID-19 ) mRNA BNT-162b2 vax [facility] Comment on above: Result Comment: 2023: [id number] Payers Date Payer Category Payer Private Health [facility] [id number] 2011 Medicare MEDICARE [id number] 1959 Medicare [id number] 1959 Unknown [id number] 1945 Unknown [id number] .647 1945 Unknown [id number] [id number] .593 1945 Unknown [id number] [id number] .593 1945 Unknown [id number] 2.16.840.1.003474.3.579.2 .593 1945 Unknown [id number] 2.16.840.1.034972.3.579.2 .593 1945 Unknown [id number] 2.16.840.1.762346.3.579.2 .727 1945 Unknown [id number] 2.16.840.1.002781.3.579.2 .727 1945 Unknown [id number] 2.16.840.1.056401.3.579.2 .727 1945 Unknown [id number] 2.16.840.1.817941.3.579.2 .727 1945 Unknown [id number] 2.16.840.1.464368.3.579.2 .1259 1945 Unknown [id number] 2.16.840.1.643867.3.579.2 .1259 1945 Unknown [id number] 2.16.840.1.410885.3.579.2 .1259 1945 Unknown [id number] 2.16.840.1.773055.3.579.2 .1259 1945 Unknown [id number] [id number] .1259 Medicare [id number] Social History Date Type Detail Facility Start: 01-03-2024 End: 01-17-2024 Tobacco smoking status Ex-smoker (finding) [facility] Tobacco smoking status Never [facility] Start: 05-29-2024 End: 01-07-2025 Sex Assigned At Female [facility] End: 11-06-1983 History of tobacco use Current smoker [facility] End: 11-06-1983 History of tobacco use Cigarette Smoker [facility] Start: 01-03-2024 Tobacco use and exposure Smokeless tobacco non-user [facility] Start: 05-29-2024 End: 01-07-2025 Alcoholic beverage intake Current drinker of alcohol (finding) [facility] Start: 05-29-2024 End: 01-07-2025 History of Social function [facility] [facility] Start: 01-02-2024 Alcohol Comment 1-2 drinks 2-3 times a week [facility] Healthcare Start: 1945 Sex assigned at Not on file [facility] [place] [facility] Functional Status Date Assessment Result Facility 02-07-2024 Functional Status N/A [facility] 01-24-2024 Functional Status N/A [facility] 01-17-2024 Functional Status N/A [facility] Clinical Notes 12-25-2023 to 12-27-2024 Note Date & Type Note Facility 12-27-2024 Note SUBJECTIVE Reason for Visit: Rachel Orozco is a 79 y.o. year old female patient being seen for 6-month follow-up. HPI: Rachel Orozco is a 79 yo female with PMH of HFrEF and HFpEF, viral cardiomyopathy, a.fib, BELLE, pulmonary HTN, moderate MR, mild to mod pulmonic regurgitation. 12/27/2024 office visit follow-up: The patient was seen in the office today and reports feeling well overall. She does experience some hand pain, which she attributes to her arthritis. Having already received steroid injections for this, she plans to consult a specialist for further management. Otherwise, she has no new concerns. She denies chest pain, palpitations, dizziness, lightheadedness, or lower extremity edema. She does report exertional shortness of breath but states it remains stable and unchanged from her baseline. Patient was previously on lisinopril 5 mg daily, per patient her PCP recently took her off due to low BP. 05/22/2024 office visit (Saadia Myles NP): She has been feeling well from a cardiac standpoint since last seen. She does c/o feeling more fatigued recently. Denies c/o CP, dyspnea, orthopnea, PND, LE edema, dizziness/LH, palpitations, syncope. History reviewed. No pertinent past medical history. History reviewed. No pertinent surgical history. Patient Active Problem List Diagnosis Dyspnea on exertion Diastolic heart failure (CMS/HCC) Bradycardia Atrial fibrillation (CMS/HCC) Chest pain NSTEMI (non-ST elevated myocardial infarction) (CMS/HCC) Alcohol abuse Asthma Diabetes mellitus (CMS/HCC) Diverticulosis Essential hypertension GERD (gastroesophageal reflux disease) History of myocardial infarction Hyperlipidemia Iron deficiency anemia Mitral regurgitation Obstructive sleep apnea syndrome Pulmonary hypertension (CMS/HCC) Pure hypercholesterolemia Vitamin D deficiency Chronic systolic heart failure (CMS/HCC) family history is not on file. Social History Tobacco Use Smoking status: Every Day Types: Cigarettes Smokeless tobacco: Never OBJECTIVE Visit Vitals BP 101/53 (BP Location: Left arm, Patient Position: Sitting, BP Cuff Size: Adult) Pulse 59 Resp 12 Ht 1.6 m (5' 3 ) Wt 68.9 kg (152 lb) SpO2 99% BMI 26.93 kg/m??? Smoking Status Every Day BSA 1.75 m??? Physical Exam Constitutional: General Appearance: well-developed, appears stated age. Level of Distress: no acute distress. Neck: Jugular Veins: normal jugular venous pressure. Lungs: Auscultation: no rales or rhonchi and normal breath sounds. Cardiovascular: Rate And Rhythm: regular. Heart Sounds: normal S1 and s2; Systolic Murmur: not heard. Diastolic Murmur: not heard. Extremities: no edema Peripheral Pulses: Pulses: full and equal in all extremities except if noted. Abdomen: Inspection and Palpation: non distended or tender and soft. Musculoskeletal: Inspection: no joint tenderness or swelling. Neurologic: Gait: normal gait. Psychiatric: Mental Status: alert and normal affect. Skin: Inspection and Palpation: warm and dry. Allergies: Allergies Allergen Reactions Sulfa (Sulfonamide Antibiotics) Outpatient Medications: Current Outpatient Medications Medication Instructions apixaban (ELIQUIS) 5 mg, oral, 2 times daily atorvastatin (LIPITOR) 40 mg, oral, Daily biotin 10,000 mcg capsule 1 capsule, oral, Daily dapagliflozin propanediol (FARXIGA) 10 mg, oral, Daily diclofenac (Voltaren) 75 mg EC tablet 1 tablet, oral, Daily fenofibrate micronized (LOFIBRA) 134 mg, oral, Daily furosemide (LASIX) 40 mg, oral, Every morning levothyroxine (Synthroid, Levoxyl) 88 mcg tablet 1 tablet, oral, Daily liothyronine (CYTOMEL) 25 mcg, oral, Daily lisinopril 5 mg, oral, Daily metoprolol succinate XL (TOPROL-XL) 12.5 mg, oral, Daily, Do not crush or chew. nitroglycerin (NITROSTAT) 0.4 mg, sublingual, Every 5 min PRN oxyBUTYnin XL (DITROPAN-XL) 10 mg, oral, Daily potassium chloride CR (Klor-Con M10) 10 mEq ER tablet 20 mEq, oral, 2 times daily RT, Do not crush or chew. Recent Labs: No visits with results within 6 Month(s) from this visit. Latest known visit with results is: Admission on 10/17/2023, Discharged on 10/20/2023 Component Date Value Ventricular Rate 10/17/2023 96 QRS DURATION 10/17/2023 84 QT Interval 10/17/2023 360 QTC CALCULATION(BAZETT) 10/17/2023 454 R-[employer] 10/17/2023 -43 T Wave [employer] 10/17/2023 33 D-Dimer, Quant (FEU) 10/17/2023 <0.27 (L) aPTT 10/18/2023 174.6 (HH) Sodium 10/17/2023 138 Potassium 10/17/2023 3.9 Chloride 10/17/2023 102 CO2 10/17/2023 24 Anion Gap 10/17/2023 16 BUN 10/17/2023 31 (H) Creatinine 10/17/2023 1.13 BUN/Creatinine Ratio 10/17/2023 27.4 Glucose 10/17/2023 243 (H) Calcium 10/17/2023 9.0 AST 10/17/2023 35 ALT (SGPT) 10/17/2023 45 Alkaline Phosphatase 10/17/2023 50 Total Protein 10/17/2023 6.4 Albumin 10/17/2023 4.2 Total Bilirubin 10/17/2023 0.5 eGFR 10/17/2023 50.1 (L) Tropon (more content not included)... [facility] 05-22-2024 Note Cardiovascular Medic in[facility] SUBJECTIVE Chief Complaint Patient presents with Follow-up 5 month follow up Rachel Orozco is a 79 y.o. female here for follow-up. HPI PMHx: HFrEF and HFpEF, viral cardiomyopathy, a.fib, BELLE, pulmonary HTN, moderate MR, mild to mod pulmonic regurg 05/22/24 She has been feeling well from a cardiac standpoint since last seen. She does c/o feeling more fatigued recently. Denies c/o CP, dyspnea, orthopnea, PND, LE edema, dizziness/LH, palpitations, syncope. 10/26/2023 She states the chest pain felt like indigestion. Lasted for possibly 15 minutes and resolved with nitroglycerin. Unsure if it was related to a meal. Her breathing has improved. She has a poor appetite. She has BELLE but does not wear a CPAP. Discharge Summary Final Discharge Diagnosis: Chest pain Admission Diagnosis: Chest pain [R07.9] Hospital course: Rachel Orozco is an 78 y.o. female admitted from [facility] where she presented with several days history of progressive shortness of breath retrosternal chest discomfort described by her as dull ache at times burning nonradiating associated for dyspnea Patient was recently discharged from [facility] after being admitted for RSV pneumonia since that time she has been having shortness of breath which gets worse with activity she denies any fever chills sinus trouble sore throat she denies any dizziness lightheadedness she feels tired she has history of atrial fibrillation and has been on Eliquis and metoprolol she denies any cardioversion in the past at [facility] she had 2 sets of [...] pain NSTEMI (non-ST elevated myocardial infarction) (CMS/HCC) Alcohol abuse Asthma Diabetes mellitus (CMS/HCC) Diverticulosis Essential hypertension GERD (gastroesophageal reflux disease) History of myocardial infarction Hyperlipidemia Iron deficiency anemia Mitral regurgitation Obstructive sleep apnea syndrome Pulmonary hypertension (CMS/HCC) Pure hypercholesterolemia Vitamin D deficiency Chronic systolic heart failure (CMS/HCC) History reviewed. No pertinent past medical history. No family history on file. Social History Tobacco Use Smoking status: Every Day Types: Cigarettes Smokeless tobacco: Never Allergies Allergen Reactions Sulfa (Sulfonamide Antibiotics) ROS Constitutional: Positive for malaise/fatigue. All other systems reviewed and are negative OBJECTIVE Visit Vitals BP 100/50 (BP Location: Left arm, Patient Position: Sitting, BP Cuff Size: Adult) Pulse 60 Resp 13 Ht 1.6 m (5' 3 ) Wt 68.9 kg (152 lb) SpO2 97% BMI 26.93 kg/m??? Smoking Status Every Day BSA 1.75 m??? Medications: Current Outpatient Medications: apixaban (Eliquis) 5 mg tablet, Take 5 mg by mouth in the morning and at bedtime., Disp: , Rfl: aspirin 81 mg EC tablet, Take 1 tablet (81 mg) by mouth in the morning., Disp: 90 tablet, Rfl: 3 atorvastatin (Lipitor) 40 mg tablet, Take 40 mg by mouth in the morning., Disp: , Rfl: biotin 10,000 mcg capsule, Take 1 capsule by mouth in the morning., Disp: , Rfl: dapagliflozin propanediol (Farxiga) 10 mg, 10 mg in the morning., Disp: , Rfl: diclofenac [...] (Lasix) 40 mg tablet, Take 1 tablet (40 mg) by mouth in the morning., Disp: 90 tablet, Rfl: 3 levothyroxine (Synthroid, Levoxyl) 88 mcg tablet, Take 1 tablet by mouth in the morning., Disp: , Rfl: liothyronine (Cytomel) 5 mcg tablet, Take 25 mcg by mouth in the morning., Disp: , Rfl: lisinopril 5 mg tablet, Take 1 tablet (5 mg) by mouth in the morning for 365 doses., Disp: 90 tablet, Rfl: 3 loratadine (Claritin) 10 mg tablet, Vicente (more content not included)... [facility] 01-25-2024 Note [id number] [facility] 01-24-2024 Hospital Discharge instructions Patient Education 01/24/2024 10:34:22 Endoscopy, Care After Procedure [facility] [place] Endoscopy Care After Procedure Please read the instructions outlined below and refer to this sheet in the next few weeks. These discharge instructions provide you with general information on caring for yourself after you leave the hospital. Your doctor may also give you specific instructions. While your treatment has been planned according to the most current medical practices available, unavoidable complications occasionally occur. If you have any problems or questions after discharge, please call your doctor. ACTIVITY You may resume your regular activity but move at a slower pace for the next 24 hours. Take frequent rest periods for the next 24 hours. Walking will help expel (get rid of) the air and reduce the bloated feeling in your abdomen. No driving for 24 hours (because of the anesthesia (medicine) used during the test). You may shower. Do not sign any important legal documents or operate any machinery for 24 hours (because of the anesthesia used during the test). NUTRITION Drink plenty of fluids. You may resume your normal diet. Begin with a light meal and progress to your normal diet. Avoid alcoholic beverages for 24 hours or as instructed by your caregiver. MEDICATIONS You may resume your normal medications unless your caregiver tells you otherwise. WHAT YOU CAN EXPECT TODAY You may experience abdominal discomfort such as a feeling of fullness or gas pains. FOLLOW-UP Your doctor will discuss the results of your test with you. SEEK IMMEDIATE MEDICAL ATTENTION IF ANY OF THE FOLLOWING OCCUR: Excessive nausea (feeling sick to your stomach) and/or vomiting. Severe abdominal pain and distention (swelling). Trouble swallowing. Temperature over 100 F (37.8 C). Rectal bleeding or vomiting of blood. Document Released: 06/06/2005 Document Re-Released: 04/16/2007 [facility] Patient Information [employer]. 01/24/2024 10:34:15 Colonoscopy, Care After Surgery [facility] ([facility]) Colonoscopy Care After Surgery Please read the instructions outlined below and refer to this sheet in the next few weeks. These discharge instructions provide you with general information on caring for yourself after you leave the hospital. Your doctor may also give you specific instructions. While your treatment has been planned according to the most current medical practices available, unavoidable complications occasionally occur. If you have any problems or questions after discharge, please call your doctor. ACTIVITY You may resume your regular activity, but move at a slower pace for the next 24 hours. Take frequent rest periods for the next 24 hours. Walking will help get rid of the air and reduce the bloated feeling in your abdomen (belly). No driving for 24 hours (because of the anesthesia (medicine) used during the test). You may shower. Do not sign any important legal documents or operate any machinery for 24 hours (because of the anesthesia used during the test). NUTRITION Drink plenty of fluids. You may resume your normal diet as instructed by your doctor. Begin with a light meal and progress to your normal diet. Heavy or fried foods are harder to digest and may make you feel nauseated (sick to your stomach). Avoid alcoholic beverages for 24 hours or as instructed. MEDICATIONS You may resume your normal medications unless your doctor tells you otherwise. WHAT YOU CAN EXPECT TODAY Some feelings of bloating in the abdomen. Passage of more gas than usual. Spotting of blood in your stool or on the toilet paper. FOLLOW-UP Your doctor will discuss the results of your test with you. SEEK IMMEDIATE MEDICAL ATTENTION IF: There is more than a spotting of blood in your stool. There is abdominal distention (your abdomen is swollen). There is vomiting. You have a temperature over 101.5 F. There is abdominal pain or discomfort that is severe or gets worse throughout the day. 01/24/2024 10:34:14 Diverticulosis [facility] ([facility]) Diverticulosis Many people have small pouches in their colon called diverticulum. The diverticulum bulge outward through weak spots in the colon. You could have one or more of these pouches in the colon. The condition of having these pouches in the colon is called diverticulosis or diverticular disease. Diverticulosis is usually diagnosed by tests to evaluate something else. For example, you may have had a colonoscopy to screen for colon cancer when the diverticulosis was found. Most people with diverticulosis do not have any discomfort or problems. If symptoms develop, they may include mild cramps, bloating, and constipation. A complication of this condition is called diverticulitis. This is when the diverticulum become inflamed and infected. How to treat diverticulosis: Increasing the amount of fiber in the diet may reduce symptoms of diverticulosis and prevent complications such as diverticulitis (infected diverticuli). Fiber keeps stool soft and lowers pressure inside the colon so that bowel contents can move through easily. You should eat 20 to 35 grams of fiber each day. The table below shows the amount of fiber in some foods that you can easily add to your diet. Adding fiber slowly may decrease the bloating and fullness sometimes felt with an immediate high fiber diet. The doctor may also recommend taking a fiber product such as Citrucel or Metamucil once a day. In the past people with diverticulosis were to avoid nuts, corn, and seeds. This has not been found to be true. If you find that certain foods create cramping or bloating, avoid that food. Foods high in fiber include: Fresh fruits, fresh vegetables, legumes (beans), whole wheat bread, bran muffins or cereal, and nuts. See the table below for examples of high fiber foods. Remember, your goal is 20-35 grams per day. Amount of fiber in different foods Food Serving Grams of fiber Fruits Apple (with skin) 1 medium apple 4.4 Banana 1 medium banana 3.1 Oranges 1 orange 3.1 Prunes 1 cup, pitted 12.4 Juices Apple, unsweetened, w/added ascorbic acid 1 cup 0.5 Grapefruit, white, canned, sweetened 1 cup 0.2 Grape, unsweetened, w/added ascorbic acid 1 cup 0.5 [place] 1 cup 0.7 Vegetables Cooked Green beans 1 cup 4.0 Carrots 1/2 cup sliced 2.3 Peas 1 cup 8.8 Potato (baked, with skin) 1 medium potato 3.8 Raw [place] (with peel) 1 cucumber 1.5 Lettuce 1 cup shredded 0.5 Tomato 1 medium tomato 1.5 Spinach 1 cup 0.7 Legumes Baked beans, canned, no salt added 1 cup 13.9 Kidney beans, canned 1 cup 13.6 Geller beans, canned 1 cup 11.6 Lentils, boiled 1 cup 15.6 Breads, pastas, flours Bran muffins 1 medium muffin 5.2 Oatmeal, cooked 1 cup 4.0 White bread 1 slice 0.6 Whole-wheat bread 1 slice 1.9 Pasta and rice, cooked Macaroni 1 cup 2.5 Rice, brown 1 cup 3.5 Rice, white 1 cup 0.6 Spaghetti (regular) 1 cup 2.5 Nuts Almonds 1/2 cup 8.7 Peanuts 1/2 cup 7.9 Chart from [facility] 2013. SEEK IMMEDIATE MEDICAL CARE IF: You develop abdominal (belly) pain. An oral temperature above _ 101 F__develops. Repeated vomiting occurs. Blood is being passed in stools (bright red or black tarry stools). You develop any bowel problems or changes which you have not had before. Extra Information: To learn how much fiber and other nutrients are in different foods, visit the [place] Department of Agriculture (USDA) National Nutrient Database at: http://www.nal.usda.gov/fnic/foodc omp/search/ Created using data from the USDA National Nutrient Database for Standard Reference. Available at http://www.nal.usda.gov/fnic/foodc omp/search/. Information adapted from: ExitCare Patient Information 2009 [employer]. Prior Knowledge 2012 [email or web address].[employer]/contents/d zjczsxrizhf-qkpvurd-ykojiz-the-bas ics Follow Up Care 01/17/2024 12:36:47 With:Anjelica WILSON, Price Magana [facility], [facility] Address: [facility] [address], [address] [place] [address]- [phone] Business (1) When: Unknown Comments:-Office to call for pathology results. Call for any problems. [phone] [facility] 01-24-2024 Note Endoscopy Care After Procedure Please read the instructions outlined below and refer to this sheet in the next few weeks. These discharge instructions provide you with general information on caring for yourself after you leave the hospital. Your doctor may also give you specific instructions. While your treatment has been planned according to the most current medical practices available, unavoidable complications occasionally occur. If you have any problems or questions after discharge, please call your doctor. ACTIVITY ? You may resume your regular activity but move at a slower pace for the next 24 hours. ? Take frequent rest periods for the next 24 hours. ? Walking will help expel (get rid of) the air and reduce the bloated feeling in your abdomen. ? No driving for 24 hours (because of the anesthesia (medicine) used during the test). ? You may shower. ? Do not sign any important legal documents or operate any machinery for 24 hours (because of the anesthesia used during the test). NUTRITION ? Drink plenty of fluids. ? You may resume your normal diet. ? Begin with a light meal and progress to your normal diet. ? Avoid alcoholic beverages for 24 hours or as instructed by your caregiver. MEDICATIONS ? You may resume your normal medications unless your caregiver tells you otherwise. WHAT YOU CAN EXPECT TODAY ? You may experience abdominal discomfort such as a feeling of fullness or ?gas? pains. FOLLOW-UP ? Your doctor will discuss the results of your test with you. seek immediate medical attention if any of the following occur: ? Excessive nausea (feeling sick to your stomach) and/or vomiting. ? Severe abdominal pain and distention (swelling). ? Trouble swallowing. ? Temperature over 100 F (37.8? C). ? Rectal bleeding or vomiting of blood. Document Released: 06/06/2005 Document Re-Released: 04/16/2007 ExitCare? Patient Information ?2009 [employer]. Colonoscopy Care After Surgery Please read the instructions outlined below and refer to this sheet in the next few weeks. These discharge instructions provide you with general information on caring for yourself after you leave the hospital. Your doctor may also give you specific instructions. While your treatment has been planned according to the most current medical practices available, unavoidable complications occasionally occur. If you have any problems or questions after discharge, please call your doctor. ACTIVITY You may resume your regular activity, but move at a slower pace for the next 24 hours. Take frequent rest periods for the next 24 hours. Walking will help get rid of the air and reduce the bloated feeling in your abdomen (belly). No driving for 24 hours (because of the anesthesia (medicine) used during the test). You may shower. Do not sign any important legal documents or operate any machinery for 24 hours (because of the anesthesia used during the test). NUTRITION Drink plenty of fluids. You may resume your normal diet as instructed by your doctor. Begin with a light meal and progress to your normal diet. Heavy or fried foods are harder to digest and may make you feel nauseated (sick to your stomach). Avoid alcoholic beverages for 24 hours or as instructed. MEDICATIONS You may resume your normal medications unless your doctor tells you otherwise. WHAT YOU CAN EXPECT TODAY Some feelings of bloating in the abdomen. Passage of more gas than usual. Spotting of blood in your stool or on the toilet paper. FOLLOW-UP Your doctor will discuss the results of your test with you. SEEK IMMEDIATE MEDICAL ATTENTION IF: There is more than a spotting of blood in your stool. There is abdominal distention (your abdomen is swollen). There is vomiting. You have a temperature over 101.5 F. There is abdominal pain or discomfort that is severe or gets worse throughout the day. Diverticulosis Many people have small pouches in their colon called diverticulum. The diverticulum bulge outward through weak spots in the colon. You could have one or more of these pouches in the colon. The condition of having these pouches in the colon is called diverticulosis or diverticular disease. Diverticulosis is usually diagnosed by tests to evaluate something else. For example, you may have had a colonoscopy to screen for colon cancer when the diverticulosis was found. Most people with diverticulosis do not have any discomfort or problems. If symptoms develop, they may include mild cramps, bloating, and constipation. A complication of this condition is called diverticulitis. This is when the diverticulum become inflamed and infected. How to treat diverticulosis: Increasing the amount of fiber in the diet may reduce symptoms of diverticulosis and prevent complications such as diverticulitis (infected diverticuli). Fiber keeps stool soft and lowers pressure inside the colon so that bowel contents can move through easily. You (more content not included)... [facility] 12-25-2023 Note [id number] [facility] Evaluation + Plan note Future Appointments Appointment Date:01/24/2024 09:15:00 AM Scheduled Provider: Location:[facility] Appointment Type:Surgery FT [facility] Evaluation note Diagnosis Right hand pain- Primary Pain in soft tissues of limb Trigger middle finger of right hand Trigger ring finger of right hand Arthritis of carpometacarpal (CMC) joint of left thumb documented in this encounter [facility] Narrative No data available for this section [facility] Hospital Discharge instructions No data available for this section [facility] Progress note No data available for this section [facility] Summary Purpose Family History No Family History Records FoundNo Family History Records Found No data available for this section No data available for this section No data available for this section No Family History Records FoundNo Family History Records FoundNo Family History Records Found Advance Directives No Advanced Directives Records FoundNo Advanced Directives Records FoundNo Advanced Directives Records FoundNo Advanced Directives Records FoundNo Advanced Directives Records Found Additional Source Comments INFORMATION SOURCE (unrecogn ized section and content) DATE CREATED AUTHOR 12/09/2019 [facility] DATE CREATED AUTHOR AUTHOR'S ORGANIZ ATION 11/02/2022 [facility] DATE CREATED AUTHOR AUTHOR'S ORGANIZ ATION 02/09/2024 [facility] DATE CREATED AUTHOR AUTHOR'S ORGANIZ ATION 12/29/2024 [facility] DATE CREATED AUTHOR AUTHOR'S ORGANIZ ATION 01/09/2025 [facility] dical Specialists EPIC Patient Care team informatio n (unrecognized section and content) Industrial Editor Relationship Specialty Start Date End Date Ben Kraft MD [address] [place] [phone] PCP - General Family Medicine 01/03/24 Industrial Editor Relationship Specialty Start Date End Date Ben Kraft MD [address] [place] [address] PCP - General Family Medicine 01/03/24 Reason for Visit (unrecogniz ed section and content) Reason Comments Pain FOR RECORDS PERTAINING TO PATIENTS WHO ARE [...] BE BASED ON THE PRIMARY CLINICAL RECORDS. [facility]. provides no warranty or guarantee of the accuracy or completeness of information in this document.
[2025-01-23 12:10] LABS: Basophils Percent Auto 0.9 % (0.2-2.0); Eosinophils Absolute Auto 0.1 10^3/uL (0.0-0.7); Hematocrit 36.9 % (36.0-48.0); Hemoglobin 12.4 g/dL (12.0-16.0); Lymphocytes Absolute Auto 1.7 10^3/uL (1.2-3.8); Lymphocytes Percent Auto 49.1 % (20.5-60.0); Mean Corpuscular HGB Conc 33.6 g/dL (29.9-35.2); Mean Corpuscular Hemoglobin 32.9 pg (26.7-34.0); Mean Corpuscular Volume 97.9 fL (81.0-99.0); Mean Platelet Volume 10.9 fL (9.5-13.5); Monocytes Absolute Auto 0.5 10^3/uL (0.3-0.8); Monocytes Percent Auto 14.5 % (1.7-12.0); Neutrophils Absolute Auto 1.2 10^3/uL (1.4-6.5); Neutrophils Percent Auto 33.5 % (43.0-75.0); Platelet Count 156 10^3/uL (150-450); Red Blood Count 3.77 10^6/uL (4.20-5.40); Red Cell Distribution Width 13.2 % (11.0-15.0); White Blood Count 3.5 10^3/uL (4.0-11.0)
[2025-01-23 12:30] LABS: Estimated Average Glucose 123 mg/dL; Glycohemoglobin A1C 5.9 % (4.5-6.2)
[2025-01-23 12:46] LABS: Alanine Aminotransferase 20 U/L (14-59); Albumin Globulin Ratio 1.3; Alkaline Phosphatase 108 U/L (46-116); Anion Gap 14.1; Aspartate Amino Transferase 24 U/L (15-37); Bilirubin Total 0.8 mg/dL (0.2-1.0); Calcium 9.5 mg/dL (8.5-10.1); Carbon Dioxide 28.8 mmol/L (21.0-32.0); Chloride 105 mmol/L (98-107); Chol HDL Ratio 1.8; Cholesterol 155 mg/dL (<=200); Estimated GFR (African America >60 (>=60 mL/min/1.73m^2); Estimated GFR (Non-African Ame 54 (>=60 mL/min/1.73m^2); Free T3 4.16 pg/mL (2.18-3.98); Glucose 107 mg/dL (74-106); HDL Cholesterol 84 mg/dL (40-60); Potassium 3.9 mmol/L (3.5-5.1); Sodium 144 mmol/L (136-145); Thyroid Stimulating Hormone <0.007 uIU/mL (0.358-3.740); Triglycerides 49 mg/dL (<=150); VLDL CHOLESTEROL 9.8 mg/dL
== END 2025-01-23 11:36 | disposition home or self-care (01) ==
PROVIDERS: PCP Family Medicine; Visit Provider Family Medicine
DX: I48.21 Permanent atrial fibrillation (principal); E03.9 Hypothyroidism, unspecified; I10 Essential (primary) hypertension; E11.9 Type 2 diabetes mellitus without complications; I21.4 Non-ST elevation (NSTEMI) myocardial infarction; E78.5 Hyperlipidemia, unspecified; D64.9 Anemia, unspecified; E55.9 Vitamin D deficiency, unspecified; R53.83 Other fatigue
CPT/HCPCS: 36415; 80053; 80061; 82306; 83036; 83540; 84436; 84443; 84481; 85025

== ENCOUNTER 2025-06-25 09:59 | Outpatient (OUT) | payer MEDICARE, SELFPAY ==
--- NOTE | 2025-06-25 10:05 | MM_ITS ---
Patient Name: ABDON OROZCO MR#: [id number] : 1945 Exam Date: 06/25/2025 Ordering Doctor: DR BEN MATHUR . RADIOLOGY REPORT PROCEDURE: MM TOMOSYNTHESIS SCREENING BI COMPARISON: MM TOMOSYNTHESIS SCREENING BI, 06/24/2024. MM TOMOSYNTHESIS SCREENING BI, 06/21/2023. MG MAMM SCREEN 3D MIGUEL CAD, 06/20/2022. MG MAMM MIGUEL SCRN W CAD DIG, 01/21/2014. INDICATIONS: screening Calculator Name NCI Breast Cancer Risk Assessment Tool 5 Year Breast Cancer Risk 8.60% Lifetime Breast Cancer Risk 13.80% Personal Breast Cancer No Personal Ovarian Cancer No Treatments HYSTERECTOMY Family Cancers Mother with breast cancer at age 38; Sister with breast cancer at age 50; Sister with breast cancer at age 69; Daughter with ovarian cancer at age 40. LOCATION: [facility] BREAST COMPOSITION: There are scattered areas of fibroglandular density. FINDINGS: DIAGNOSTIC CATEGORY 1--NEGATIVE. RIGHT BREAST: No significant suspicious finding. LEFT BREAST: No significant suspicious finding. RECOMMENDATIONS: ROUTINE MAMMOGRAM AND CLINICAL EVALUATION IN 12 MONTHS. PLEASE NOTE: A NORMAL MAMMOGRAM DOES NOT EXCLUDE THE POSSIBILITY OF BREAST CANCER. A CLINICALLY SUSPICIOUS PALPABLE LUMP SHOULD BE BIOPSIED. Dictated by: Daniel Barrios MD on 06/25/2025 at 13:57 Approved by: Daniel Barrios MD on 06/25/2025 at 14:13
== END 2025-06-25 10:00 | disposition home or self-care (01) ==
LOC: MAMMO 09:59
PROVIDERS: PCP Family Medicine; Visit Provider Family Medicine
DX: Z12.31 Encounter for screening mammogram for malignant neoplasm of breast (principal); Z80.3 Family history of malignant neoplasm of breast; Z80.41 Family history of malignant neoplasm of ovary
CPT/HCPCS: 77063; 77067

== ENCOUNTER 2025-09-16 13:47 | Outpatient (OUT) | payer MEDICARE, SELFPAY ==
--- OUTSIDE RECORDS SUMMARY | 2025-09-04 10:00 | XMS_ITS | Encounter Summary ---
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 Patient states she is feels like she is catching a cold.Patient seen otho for hand pain, she was prescribed Celebrex, patient hasn't startedit due to wanting to make sure its ok with the rest of her medication. Patient denies chest pain, leg swelling, palpitations/racing.Congestive Heart Failure BradycardiaAtrial FibrillationHypertensionNSTEMI.HyperlipidemiaValve Disorder Mitral regurgitationPulmonary HypertensionCoronary Artery DiseaseDizziness Occasional dizziness/lightheaded with position changes Encounter Details DateTypeDepartmentCare Team (Latest Contact Info)Wrwxhbcrzhf90/30/2025 11:00 AM EDTOffice Visit [facility] [place] [address] [place] [address] Bonnie Myles, KOBI [address] [place] [phone] Chronic systolic heart failure (CMS/HCC) (Primary Dx); Heart failure with improved ejection fraction (HFimpEF) (CMS/HCC); Stress-induced cardiomyopathy; Pulmonary hypertension (CMS/HCC); Longstanding persistent atrial fibrillation (CMS/HCC); 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) Social History Tobacco UseTypesPacks/DayYears UsedDateSmoking Tobacco: FormerCigarettes Smokeless Tobacco: Never Tobacco Cessation:Counseling Given: Not Answered Alcohol UseStandard Drinks/WeekCommentsYes0 (1 standard drink = 0.6 oz pure alcohol)4 to 5 mix drinks per dayHumiliation, Afraid, Rape, and Kick questionnaireAnswerDate RecordedWithin the last year, have you been afraid of your partner or ex-partner?No10/17/2023Emotionally AbusedNot on file10/17/2023 Physically AbusedNot on file10/17/2023Sexually AbusedNot on file10/17/2023 Overall Financial Resource Strain (CARDIA)AnswerDate RecordedHow hard is it for you to pay for the very basics like food, housing, medical care, and heating?Not hard at all10/17/2023UT Safety & EnvironmentAnswerDate RecordedWithin the last year, have you been afraid of your partner or ex-partner?No10/17/2023Emotionally AbusedNot on file10/17/2023hysically AbusedNot on file10/17/2023Sexually Abused Not on file10/17/2023In the past year have you been physically or sexually abused?Unrecognized value10/17/2023TransportationAnswerDate RecordedIn the past 12 months, has lack of transportation kept you from medical appointments or from getting medications?No10/17/2023Lack of Transportation (Non-Medical)Not on file 10/17/2023Housing Stability Vital SignAnswerDate RecordedUnable to Pay for Housing in the Last YearNot on file10/17/2023Number of Places Lived in the Last YearNot on file10/17/2023In the last 12 months, was there a time when you did not have a steady place to sleep or slept in ashelter (including now)?No 10/17/2023Hunger Vital SignAnswerDate RecordedWithin the past 12 months, you worried that your food would run out before you got the money to buymore.Never true10/17/2023Ran Out of Food in the Last YearNot on file10/17/2023 CommentsUnknownSex and Gender InformationValueDate RecordedSex Assigned at Rohodf4610/18/2023 11:04 AM ESTLegal LwuDpuzai91/29/2022 11:41 PM EDTGender PjdjbhvaVozcok36/13/2023 11:04 AM ESTSexual OrientationChoose not to disclose 10/18/2023 11:04 AM ESTdocumented as of this encounter Last Filed Vital Signs Vital SignReadingTime TakenCommentsBlood Dubnchxg448/6809/04/2025 11:21 AM EDT Latct292809/04/2025 11:21 AM EDTTemperature--Respiratory Rate--Oxygen Saturation 97%09/04/2025 11:21 AM EDTInhaled Oxygen Concentration--Ehmcxv98.7 kg (147 lb) 09/04/2025 11:21 AM VVBPcchbd335 cm (5' 3 )09/04/2025 11:21 AM EDTBody Mass Index26.041 11:21 AM EDTdocumented in this encounter Functional Status * BPAnswerDate of LcquvvdnrbIwjykr557/6809/04/2025 11:21 AM Nayana Oseguera MA * PulseAnswerDate of OywhygmzdrQomrnm1962/30/2025 11:21 AM Nayana Oseguera MA * Patient PositionAnswerDate of IfxeexvppiCxbdvrSahmkhc98/30/2025 11:21 AM EDT Nayana Cisneros MA * BPAnswerDate of PpkzalzjuyShlypy050/6809/04/2025 11:21 AM Nayana Oseguera MA * PulseAnswerDate of MgwzuwsfcnKdaedh0732/30/2025 11:21 AM Nayana Oseguera MA * OhZ6OmfeasTbtr of FoovvnablxJmqvvm5759/30/2025 11:21 AM Nayana Oseguera MA * BP LocationAnswerDate of AssessmentAuthorRight arm09/04/2025 11:21 AM EDT Nayana Cisneros MA * Patient PositionAnswerDate of JgeylseamaRttjixZcpxevb24/30/2025 11:21 AM LYLET Nayana Cisneros MA documented as of this encounter Progress Notes * Bonnie Myles CNP - 09/04/2025 11:00 AM EDT Images from the original note were not included. Cardiovascular Medicine [facility] SUBJECTIVE Chief Complaint Patient presents with Follow-up Patient is here today for a 6 month follow up appointment. Patient states she is feels like she is catching a cold.Patient seen otho for hand pain, she was prescribed Celebrex, patient hasn't startedit due to wanting to make sure its ok with the rest of her medication. Patient denies chest pain, leg swelling, palpitations/racing. Congestive Heart Failure Bradycardia Atrial Fibrillation Hypertension NSTEMI. Hyperlipidemia Valve Disorder Mitral regurgitation Pulmonary Hypertension Coronary Artery Disease Dizziness Occasional dizziness/lightheaded with position changes Rachel Rivera is a 80 y.o. female here for follow-up. Congestive Heart Failure Her past medical history is significant for CAD. Atrial Fibrillation Symptoms include dizziness. Past medical history includes atrial fibrillation, CAD, CHF and hyperlipidemia. Hypertension Hyperlipidemia Coronary Artery Disease Symptoms include dizziness. Risk factors include hyperlipidemia. Her past medical history is significant for CHF. Dizziness PMHx: HFrEF and HFpEF, viral cardiomyopathy, a.fib, BELLE, pulmonary HTN, moderate MR, mild to mod pulmonic regurg 09/04/2025 She notes her breathing has been improved. Denies CP, orthopnea, PND, palpitations, LE edema, syncope. She had some dizzy spells last week. Occurred with standing or bending over. She notes her BP has been well controlled at home. A little elevated in clinic today. She is contemplating starting celebrex. She notes she bruises easily. 05/22/24 She has been feeling well from [...] Diagnosis: Chest pain [R07.9] Hospital course: Rachel Celeste is an 78 y.o. female admitted from [facility] where she presented with several days history of progressive shortness of breath retrosternal chest discomfort described by her as dull ache at times burning nonradiating associated for dyspnea Patient was recently discharged from [facility] after being admitted for RSV pneumonia sincethat time she has been having shortness of breath which gets worse with activity she denies any fever chills sinus trouble sore throat she denies any dizziness lightheadedness she feels tired she hashistory of atrial fibrillation and has been on Eliquis and metoprolol she denies any cardioversion in the past at [facility] she had 2 sets of troponin done 0 these are high-sensitivity troponin0-hour was 143.6 and subsequent troponin peaked at [...] cardiology and have repeat ECHO in 2-3 mon ths. Recent RSV infection Discharged on steroid course [...] D deficiency Chronic systolic heart failure (CMS/HCC) Acquired hypothyroidism Acute bronchiolitis Acute non-ST segment elevation myocardial infarction (CMS/HCC) Altered mental status Arthropathy CAD (coronary artery disease) Diverticulitis Hallux valgus (acquired), left foot Hallux valgus of right foot Hypomagnesemia Osteoarthritis of knee Primary osteoarthritis, right ankle and foot Seasonal allergic rhinitis Vomiting Well controlled type 2 diabetes mellitus (CMS/HCC) Acquired trigger finger Carpal tunnel syndrome of right wrist Localized, primary osteoarthritis of hand Heart failure with improved ejection fraction (HFimpEF) (CMS/HCC) History reviewed. No pertinent past medical history. No family history on file. Social History Tobacco Use Smoking status: Former Types: Cigarettes Smokeless tobacco: Never Substance Use Topics Alcohol use: Yes Comment: 4 to 5 mix drinks per day Drug use: Never Allergies Allergen Reactions Sulfa (Sulfonamide Antibiotics) Review of Systems Neurological: Positive for dizziness. Constitutional: Positive for malaise/fatigue. All other systems reviewed and are negative OBJECTIVE Visit Vitals BP 146/68 (BP Location: Right arm, Patient Position: Sitting) Pulse 57 Ht 1.6 m (5' 3 ) Wt 66.7 kg (147 lb) SpO2 97% BMI 26.04 kg/m?? Smoking Status Former BSA 1.72 m?? Medications: Current Outpatient Medications: apixaban (Eliquis) 5 mg tablet, Take 1 tablet (5 mg) by mouth two times daily., Disp: 180 tablet, Rfl: 3 aspirin 81 mg EC tablet, Take 81 mg by mouth in the morning., Disp: , Rfl: atorvastatin (Lipitor) 40 mg tablet, Take 40 mg by mouth in the morning., Disp: , Rfl: biotin 10,000 mcg capsule, Take 1 capsule by mouth in the morning., Disp: , Rfl: dapagliflozin propanediol (Farxiga) 10 mg, Take 1 tablet (10 mg) by mouth once daily as directed., Disp: 90 tablet, Rfl: 3 diclofenac (Voltaren Arthritis Pain) 1 % topical gel, Apply topically if needed in the morning, at noon, in the evening, and at bedtime for pain., Disp: , Rfl: fenofibrate micronized (Lofibra) 134 [...] (Toprol-XL) 25 mg 24 hr tablet, Take 0.5 tablets (12.5 mg) by mouth in the morning. Do not crush or chew., Disp: 45 tablet, Rfl: 3 nitroglycerin (Nitrostat) 0.4 mg SL tablet, Place 1 tablet (0.4 mg) under the tongue every 5 (five)minutes if needed for chest pain., Disp: 90 tablet, Rfl: 0 oxybutynin XL (Ditropan-XL) 10 mg 24 hr tablet, Take 10 mg by mouth in the morning., Disp: , Rfl: potassium chloride CR (Klor-Con M10) 10 mEq ER tablet, TAKE 2 TABLETS (20 MEQ) BY MOUTH IN THE MORNING AND AT BEDTIME. DO NOT CRUSH OR CHEW., Disp: 360 tablet, Rfl: 3 celecoxib (CeleBREX) 200 mg capsule, Take 200 mg by mouth in the morning. (Patient not taking: Reported on 09/04/2025), Disp: , Rfl: Physical Exam Vitals reviewed. Constitutional: Appearance: Normal appearance. She is normal weight. HENT: Head: Normocephalic and atraumatic. Right Ear: External ear normal. Left Ear: External ear normal. Eyes: Extraocular Movements: Extraocular movements intact. Conjunctiva/sclera: Conjunctivae normal. Pupils: Pupils are equal, round, and reactive to light. Neck: Vascular: No carotid bruit. Cardiovascular: Rate and Rhythm: Normal rate and regular rhythm. Pulses: Normal pulses. Heart sounds: Normal heart sounds. Pulmonary: Effort: Pulmonary effort is normal. Breath sounds: Normal breath sounds. Abdominal: General: Bowel sounds are normal. Palpations: Abdomen is soft. Musculoskeletal: Cervical back: Neck supple. Right lower leg: No edema. Left lower leg: No edema. Skin: General: Skin is warm and dry. Neurological: General: No focal deficit present. Mental Status: She is alert and oriented to person, place, and time. Psychiatric: Mood and Affect: Mood normal. Behavior: Behavior normal. Thought Content: Thought content normal. Judgment: Judgment normal. Labs: Admission on 10/17/2023, Discharged on 10/20/2023 Component Date Value Ref Range Status Ventricular Rate 10/17/2023 96 BPM Final QRS DURATION 10/17/2023 84 ms Final QT Interval 10/17/2023 360 ms Final QTC CALCULATION(BAZETT) 10/17/2023 454 ms Final [place] 10/17/2023 -43 degrees Final T Wave [place] 10/17/2023 33 degrees Final D-Dimer, Quant (FEU) 10/17/2023 <0.27 (L) 0.27 - 0.49 mcg/mL FEU Final aPTT 10/18/2023 174.6 (HH) 25.0 - 35.0 Seconds Final Sodium 10/17/2023 138 136 - 145 mmol/L Final Potassium 10/17/2023 3.9 3.5 - 5.1 mmol/L Final Chloride 10/17/2023 102 98 - 107 mmol/L Final CO2 10/17/2023 24 21 - 31 mmol/L Final Anion Gap 10/17/2023 16 7 - 20 mmol/L Final BUN 10/17/2023 31 (H) 7 - 25 mg/dL Final Creatinine 10/17/2023 1.13 0.60 - 1.20 mg/dL Final BUN/Creatinine Ratio 10/17/2023 27.4 Final Glucose 10/17/2023 243 (H) 70 - 100 mg/dL Final Calcium 10/17/2023 9.0 8.6 - 10.3 mg/dL Final AST 10/17/2023 35 13 - 39 U/L Final ALT (SGPT) 10/17/2023 45 7 - 52 U/L Final Alkaline Phosphatase 10/17/2023 50 34 - 104 U/L Final Total Protein 10/17/2023 6.4 6.0 - 8.3 g/dL Final Albumin 10/17/2023 4.2 3.5 - 5.7 g/dL Final Total Bilirubin 10/17/2023 0.5 0.3 - 1.0 mg/dL Final eGFR 10/17/2023 50.1 (L) >60.0 mL/min/1.73m*2 Final Troponin I 10/17/2023 3.96 (HH) 0.00 - 0.04 ng/mL Final Troponin I 10/18/2023 4.29 (HH) 0.00 - 0.04 ng/mL Final Troponin I 10/18/2023 4.06 (HH) 0.00 - 0.04 ng/mL Final Auto WBC 10/17/2023 12.78 (H) 4.00 - 10.60 10*3/uL Final RBC 10/17/2023 3.78 (L) 3.80 - 5.00 10*6/uL Final Hemoglobin 10/17/2023 11.9 (L) 12.0 - 15.0 g/dL Final Hematocrit 10/17/2023 36.6 36.0 - 48.0 % Final MCV 10/17/2023 96.8 82.0 - 98.0 fL Final MCH 10/17/2023 31.5 27.0 - 33.0 pg Final MCHC 10/17/2023 32.5 32.0 - 35.0 g/dL Final RDW 10/17/2023 13.7 11.5 - 15.0 % Final Neutrophils % 10/17/2023 85.4 (H) 40.0 - 72.0 % Final Lymphocytes % 10/17/2023 9.5 (L) 20.0 - 45.0 % Final Monocytes % 10/17/2023 4.2 (L) 5.0 - 12.0 % Final Eosinophils % 10/17/2023 0.0 0.0 - 6.0 % Final Basophils % 10/17/2023 0.1 0.0 - 1.0 % Final Neutrophils Absolute 10/17/2023 10.92 (H) 1.60 - 7.60 10*3/uL Final Lymphocytes Absolute 10/17/2023 1.21 1.20 - 4.00 10*3/uL Final Monocytes Absolute 10/17/2023 0.54 0.10 - 1.00 10*3/uL Final Eosinophils Absolute 10/17/2023 0.00 0.00 - 0.50 10*3/uL Final Basophils Absolute 10/17/2023 0.01 0.00 - 0.20 10*3/uL Final Platelets 10/17/2023 225 150 - 400 10*3/uL Final nRBC % 10/17/2023 0.0 0 % Final Immature Granulocytes % 10/17/2023 0.8 0.0 - 1.0 % Final Immature Granulocytes Absolute 10/17/2023 0.10 0.00 - 0.20 10*3/uL Final Extra Tube 10/17/2023 Hold for add-ons. Final Extra Tube 10/17/2023 Hold for add-ons. Final Glucose POC 10/17/2023 217 (H) 70 - 105 mg/dL Final Ventricular Rate 10/18/2023 85 BPM Final QRS DURATION 10/18/2023 82 ms Final QT Interval 10/18/2023 372 ms Final QTC CALCULATION(BAZETT) 10/18/2023 442 ms Final [place] 10/18/2023 4 degrees Final T Wave [place] 10/18/2023 55 degrees Final Auto WBC 10/18/2023 10.64 (H) 4.00 - 10.60 10*3/uL Final RBC 10/18/2023 3.56 (L) 3.80 - 5.00 10*6/uL Final Hemoglobin 10/18/2023 11.1 (L) 12.0 - 15.0 g/dL Final Hematocrit 10/18/2023 34.4 (L) 36.0 - 48.0 % Final MCV 10/18/2023 96.6 82.0 - 98.0 fL Final MCH 10/18/2023 31.2 27.0 - 33.0 pg Final MCHC 10/18/2023 32.3 32.0 - 35.0 g/dL Final RDW 10/18/2023 13.5 11.5 - 15.0 % Final Platelets 10/18/2023 205 150 - 400 10*3/uL Final TSH 10/18/2023 0.02 (L) 0.34 - 5.60 mIU/L Final Free T4 10/18/2023 0.86 0.71 - 1.85 ng/dL Final aPTT 10/18/2023 140.1 (HH) 25.0 - 35.0 Seconds Final Ventricular Rate 10/18/2023 80 BPM Final QRS DURATION 10/18/2023 80 ms Final QT Interval 10/18/2023 410 ms Final QTC CALCULATION(BAZETT) 10/18/2023 472 ms Final [place] 10/18/2023 -59 degrees Final T Wave [place] 10/18/2023 208 degrees Final Troponin I 10/18/2023 3.51 (HH) 0.00 - 0.04 ng/mL Final BNP 10/18/2023 1,127 (H) 0 - 100 pg/mL Final Glucose POC 10/18/2023 201 (H) 70 - 105 mg/dL Final Glucose POC 10/18/2023 196 (H) 70 - 105 mg/dL Final Glucose POC 10/18/2023 307 (H) 70 - 105 mg/dL Final Sodium 10/19/2023 138 136 - 145 mmol/L Final Potassium 10/19/2023 3.3 (L) 3.5 - 5.1 mmol/L Final Chloride 10/19/2023 99 98 - 107 mmol/L Final CO2 10/19/2023 30 21 - 31 mmol/L Final BUN 10/19/2023 40 (H) 7 - 25 mg/dL Final Creatinine 10/19/2023 1.12 0.60 - 1.20 mg/dL Final Glucose 10/19/2023 243 (H) 70 - 100 mg/dL Final Calcium 10/19/2023 8.7 8.6 - 10.3 mg/dL Final Anion Gap 10/19/2023 12 7 - 20 mmol/L Final eGFR 10/19/2023 50.6 (L) >60.0 mL/min/1.73m*2 Final BUN/Creatinine Ratio 10/19/2023 35.7 Final Magnesium 10/19/2023 1.6 (L) 1.9 - 2.7 mg/dL Final Phosphorus 10/19/2023 3.3 2.5 - 5.0 mg/dL Final Troponin I 10/19/2023 3.09 (HH) 0.00 - 0.04 ng/mL Final Ventricular Rate 10/19/2023 85 BPM Final QRS DURATION 10/19/2023 86 ms Final QT Interval 10/19/2023 458 ms Final QTC CALCULATION(BAZETT) 10/19/2023 545 ms Final [place] 10/19/2023 107 degrees Final T Wave [place] 10/19/2023 238 degrees Final Glucose POC 10/19/2023 162 (H) 70 - 105 mg/dL Final Glucose POC 10/19/2023 203 (H) 70 - 105 mg/dL Final Glucose POC 10/19/2023 137 (H) 70 - 105 mg/dL Final Glucose POC 10/19/2023 252 (H) 70 - 105 mg/dL Final Auto WBC 10/20/2023 10.06 4.00 - 10.60 10*3/uL Final RBC 10/20/2023 3.71 (L) 3.80 - 5.00 10*6/uL Final Hemoglobin 10/20/2023 11.8 (L) 12.0 - 15.0 g/dL Final Hematocrit 10/20/2023 36.0 36.0 - 48.0 % Final MCV 10/20/2023 97.0 82.0 - 98.0 fL Final MCH 10/20/2023 31.8 27.0 - 33.0 pg Final MCHC 10/20/2023 32.8 32.0 - 35.0 g/dL Final RDW 10/20/2023 13.5 11.5 - 15.0 % Final Platelets 10/20/2023 239 150 - 400 10*3/uL Final Extra Tube 10/20/2023 Hold for add-ons. Final Sodium 10/20/2023 140 136 - 145 mmol/L Final Potassium 10/20/2023 3.7 3.5 - 5.1 mmol/L Final Chloride 10/20/2023 100 98 - 107 mmol/L Final CO2 10/20/2023 35 (H) 21 - 31 mmol/L Final BUN 10/20/2023 43 (H) 7 - 25 mg/dL Final Creatinine 10/20/2023 1.07 0.60 - 1.20 mg/dL Final Glucose 10/20/2023 100 70 - 100 mg/dL Final Calcium 10/20/2023 9.2 8.6 - 10.3 mg/dL Final Anion Gap 10/20/2023 9 7 - 20 mmol/L Final eGFR 10/20/2023 53.5 (L) >60.0 mL/min/1.73m*2 Final BUN/Creatinine Ratio 10/20/2023 40.2 Final Glucose POC 10/20/2023 96 70 - 105 mg/dL Final Glucose POC 10/20/2023 124 (H) 70 - 105 mg/dL Final Lab Results Component Value Date BNP 1,127 (H) 10/18/2023 Testing/Procedures: ECHO 12/08/2023: LVEF 55-60% RV is normal in size and systolic function Biatrial enlargement Unable to determine diastolic function due to heart rhythm Mild TR Severely elevated right sided pressures RVSP 60 Moderate MR Mild to moderate pulmonic regurg Cardiac cath conclusion 10/18/2023 PROCEDURE PHYSICIAN: Antony Henson MD Clinical Presentation: 78 y.o. Female with Permanent Afib on eliquis, HLD, DM2, Hypothyroidism, HTN, BELLE, and Pulmonary hypertension. She had COVID infection in August 2023 and then had RSV infection with recent hospitalization in October 2023. She has had worsening shortness of breath over the last 1 week with intermittent chest pain episodes. She presented to [place] ER last night and her troponin was elevated consistent with NSTEMI. Shewas transferred to [facility] for further management. Her echo from today shows acute systolic heart failure as well. Final Impression: 1) Normal coronary angiogram 2) right heart catheterization shows decompensated heart failure with mean wedge pressure 28 mmHg, mean RA pressure 15 mmHg, and reduced cardiac index of 2.1 L/minute/m2 Plan: 1) suspect myocarditis related to recent viral infection 2) optimize GDMT for HFrEF as tolerated 3) wedge pressure is severely elevated, continue lasix IV diuresis 4) outpatient follow-up with [place] cardiology within 1 week for heart failure follow-up 5) repeat echo in 1 to 3 months to reassess LV function 10/18/23 TTE ECHO: Left Ventricle: The left ventricle is normal [...] opacification and better delineation of endocardial borders. Echo 05/25/2021 1. Normal ventricular systolic function 2. No significant valvular dysfunction 3. Mildly elevated right-sided pressures with an RVSP of 39 4. Patient appears to be in atrial fibrillation TTE 12/2019 Global left ventricular systolic function is normal (Visually estimated EF 55%). Normal right ventricular systolic function. The left atrium is severely enlarged. Mild mitral regurgitation. Mild tricuspid regurgitation. ASSESSMENT/PLAN: Diagnosis Plan 1. Chronic systolic heart failure (CMS/HCC) 2. Heart failure with improved ejection fraction (HFimpEF) (CMS/HCC) 3. Stress-induced cardiomyopathy 4. Pulmonary hypertension (CMS/HCC) 5. Longstanding persistent atrial fibrillation (CMS/HCC) 6. 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) #Chronic HFrEF with recovered EF, TTE 12/2023: 55% - NYHA II-III with overlap from chronic dyspnea unclear etiology #Stress induced cardiomyopathy --Recent severe illness RSV pneumonia 10/2023 --10/17/23 TTE with EF 20-25% --10/18/23 [facility] found normal CORS --12/2023 TTE: LVEF 55-60% -She has been feeling well. She appears compensated/euvolemic on exam. -Follow-up ECHO Ordered -GDMT: Continue lisinopril, Toprol, Jardiance, lasix. -She inquired about starting celebrex. Advised to avoid NSAIDS if possible given increased risk of Mis/strokes, fluid retention, elevating BP, GI bleeding. She notes she didn't feel comfortable taking before our discussion and she will further discuss with ortho. #Pulmonary HTN -Her last ECHO 12/2023 showed pulmonary HTN with RVSP at 60 -We were going to increase her lasix to see if this would improve but she went to the ER prior to this and she was found to be dehydrated and spironolactone was stopped. -She is feeling well today. -Currently on lasix 40mg daily. -F/U ECHO ordered #Permanent Atrial Fibrillation -CHADSVASC score-5, on Eliquis, she denies bleeding issues -Rate controlled, continue BB #Essential HTN - -Elevated today but she typically is well controlled. -Asked she monitor at home and notify us of any consistently high readings #BELLE without CPAP Follow up in about 6 months (around 03/05/2026). 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
--- OUTSIDE RECORDS SUMMARY | 2025-09-16 13:49 | XMS_ITS | Clinical Summary ---
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 Name Role Phone Toni Kraft MD Primary Care Provider [phone] Allergies Active AllergyReactionsCriticalityNoted DateCommentsSulfa (Sulfonamide Antibiotics)04/13/2016 Medications MedicationSigDispense QuantityRefillsLast FilledStart DateEnd DateStatus levothyroxine (SYNTHROID, LEVOTHROID) 50 MCG tablet Take 88 mcg by mouth every other day.Active levothyroxine (SYNTHROID, LEVOTHROID) 25 MCG tablet Take 1 tablet (25 mcg total) by mouth every other day.Active metoprolol tartrate (LOPRESSOR) 25 mg tablet Take 0.5 tablets (12.5 mg total) by mouth in the morning and 0.5 tablets (12.5 mg total) before bedtime.Active liothyronine (CYTOMEL) 5 MCG tablet Take 5 tablets (25 mcg total) by mouth in the morning.Active atorvastatin (LIPITOR) 40 mg tablet Take 1 tablet (40 mg total) by mouth in the morning.Active aspirin 81 mg Take 81 mg by mouth daily.Active fenofibrate micronized (LOFIBRA) 134 mg capsule Take 1 capsule (134 mg total) by mouth every morning before breakfast.Active omega-3 fatty acids-fish oil (FISH OIL) 300-1,000 mg capsule Take 1 capsule (1 g total) by mouth in the morning.Active losartan (COZAAR) 50 mg tablet Take 1 tablet (50 mg total) by mouth in the morning.Active oxybutynin XL (DITROPAN-XL) 10 mg 24 hr tablet Take 1 tablet (10 mg total) by mouth in the morning.Active pantoprazole (PROTONIX) 40 mg EC tablet Take 1 tablet (40 mg total) by mouth in the morning.Active loratadine (CLARITIN) 10 mg tablet Take 1 tablet (10 mg total) by mouth in the morning.Active ferrous sulfate 325 (65 FE) mg tablet Take 1 tablet (325 mg total) by mouth daily with breakfast.Active apixaban (ELIQUIS) 5 mg tablet Take by mouth 2 (two) times a day.Active biotin 10 mg tablet Take 10,000 mcg by mouth in the morning.Active dapagliflozin propanediol (FARXIGA) 10 mg tablet Take 1 tablet (10 mg total) by mouth in the morning.5Active diclofenac (VOLTAREN) 75 mg EC tablet Take 1 tablet (75 mg total) by mouth daily as needed.Active furosemide (LASIX) 40 mg tablet Take 1 tablet (40 mg total) by mouth daily.Active nitroglycerin (NITROSTAT) 0.[address] 1 tablet (0.4 mg total) under the tongue every 5 (five) minutes as needed. 10/20/2023ctive potassium chloride (KLOR-CON M 10) 10 MEQ CR tablet Take 2 tablets (20 mEq total) by mouth in the morning and 2 tablets (20 mEq total) before bedtime.4Active levothyroxine (SYNTHROID, LEVOTHROID) 88 MCG tablet Take 1 tablet (88 mcg total) by mouth in the morning.Active Active Problems No known active problems Family History Medical HistoryRelationNameCommentsColon cancerBrotherHypertensionBrotherBreast cancerMaternal AuntBreast cancerMotherColon cancerNephewBreast cancerNieceBreast cancerSister 1HyperlipidemiaSister 1HypertensionSister 1Breast cancerSister 2 Ovarian cancerNeg HxUterine cancerNeg HxRelationNameStatusCommentsBrother Maternal AuntAliveMotherNephewAliveNieceAliveSister 1Sister 2Alive Social History Tobacco UseTypesPacks/DayYears UsedDateSmoking Tobacco: FormerCigarettes Smokeless Tobacco: Never Tobacco Cessation:Counseling Given: Not Answered Alcohol UseStandard Drinks/WeekCommentsYes0 (1 standard drink = 0.6 oz pure alcohol)dailyPHQ-2AnswerDate RecordedTotal Dwjtg6625ChildcareAnswerDate JpvkouirJgthadbxyFqnbihp21/12/2019EmploymentAnswerDate RecordedEmploymentUnknown 04/17/2019Hunger ScreeningAnswerDate RecordedWithin the past 12 months we worried whether our food would run out before we got money to buy more.Never True03/04/2025Within the past 12 months the food we bought just didn't last and we didn't have money to get more.Never True03/04/2025Purpose - LifeAnswerDate RecordedPurpose and direction in smryChlxgre05/11/2021CommentsNoSex and Gender InformationValueDate RecordedSex Assigned at BirthNot on fileLegal Sex Ryyqtn7806/11/2015 12:01 PM EDTGender IdentityNot on fileSexual OrientationNot on file Last Filed Vital Signs Vital SignReadingTime TakenCommentsBlood Dcoipweg45/66003/04/2025 1:05 PM EDT Pjzrj8035 11:00 AM TNVSebulaqiaru12 ??C (98.6 ??F)07/10/2018 7:40 AM EDT Respiratory Ntjz342007/10/2018 11:00 AM EDTOxygen Kbzaejmcvx37%07/10/2018 11:00 AM EDTInhaled Oxygen Concentration--Jvbnqg27.9 kg (147 lb 6.4 oz)03/04/2025 1:05 PM LKKCmyidd435 cm (5' 3 )03/04/2025 1:05 PM EDTBody Mass Index26.11003/04/2025 1:05 PM EDT Plan of Treatment Health MaintenanceDue DateLast DoneCommentsDTaP,Tdap and Td Vaccines (1 - Tdap) 1964Fall Risk Rlmnqcuaq93/15/2011COVID-19 Vaccine (2024- season) /, 12/05/2023, 08/30/2022, Additional history existsInfluenza Zmfhixm43/04/2023, 08/30/2022, 10/15/2021, Additional history exists Depression Cveravnda30/Tobacco Qwhtnzujd86/ Zoster (Shingles) AkbyllxMmdbedkgv72/06/2023, 07/05/2023RSV ( or age 60+ yrs)Lzbvpjmvn80/29/2024 Medical Devices Not on file Insurance Care Teams Team MemberRelationshipSpecialtyStart DateEnd Toni Kraft MD [facility] - [facility]04/12/16
--- OUTSIDE RECORDS SUMMARY | 2025-09-16 13:50 | XMS_ITS | Clinical Summary ---
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 Name Role Phone Toni Kraft MD Primary Care Provider [phone] Allergies Active AllergyReactionsCriticalityNoted DateCommentsSulfa (Sulfonamide Antibiotics)04/13/2016 Medications MedicationSigDispense QuantityRefillsLast FilledStart DateEnd DateStatus levothyroxine (Synthroid, Levoxyl) 88 mcg tablet Take 1 tablet by mouth in the morning.Active fenofibrate micronized (Lofibra) 134 mg capsule Take 134 mg by mouth in the morning.Active liothyronine (Cytomel) 5 mcg tablet Take 25 mcg by mouth in the morning.Active oxybutynin XL (Ditropan-XL) 10 mg 24 hr tablet Take 10 mg by mouth in the morning.Active biotin 10,000 mcg capsule Take 1 capsule by mouth in the morning.Active nitroglycerin (Nitrostat) 0.4 mg SL tablet Indications:Acute on chronic diastolic heart failure (CMS/HCC),Diastolic heart failure, unspecified HF chronicity (CMS/HCC)Place 1 tablet (0.4 mg) under the tongue every 5 (five) minutes if needed for chest pain. 90 tablet /ctive metoprolol succinate XL (Toprol-XL) 25 mg 24 hr tablet Indications:Chronic systolic heart failure (CMS/HCC)Take 0.5 tablets (12.5 mg) by mouth in the morning. Do not crush or chew. 45 tablet ctive furosemide (Lasix) 40 mg tablet Indications:Chronic systolic heart failure (CMS/HCC)Take 1 tablet (40 mg) by mouth in the morning. 90 tablet 312/29/2023Active atorvastatin (Lipitor) 40 mg tablet Take 40 mg by mouth in the morning.Active apixaban (Eliquis) 5 mg tablet Indications:Paroxysmal atrial fibrillation (CMS/HCC)Take 1 tablet (5 mg) by mouth two times daily. 180 tablet ctive dapagliflozin propanediol (Farxiga) 10 mg Indications:Chronic systolic heart failure (CMS/HCC)Take 1 tablet (10 mg) by mouth once daily as directed. 90 tablet ctive potassium chloride CR (Klor-Con M10) 10 mEq ER tablet Indications:Chronic diastolic heart failure (CMS/HCC)TAKE 2 TABLETS (20 MEQ) BY MOUTH IN THE MORNING AND AT BEDTIME. DO NOT CRUSH OR CHEW. 360 tablet ctive aspirin 81 mg EC tablet Take 81 mg by mouth in the morning.Active celecoxib (CeleBREX) 200 mg capsule Take 200 mg by mouth in the morning.5Active diclofenac (Voltaren Arthritis Pain) 1 % topical gel Apply topically if needed in the morning, at noon, in the evening, and at bedtime for pain.Active diclofenac (Voltaren) 75 mg EC tablet Take 1 tablet by mouth in the morning.09/04/2025Discontinued(Med List Cleanup) Active Problems ProblemNoted DateDiagnosed DateHeart failure with improved ejection fraction (HFimpEF)5Acute wgtmihhnremvr78/29/2025ute non-ST segment elevation myocardial ceaiuyfdgw08/29/2025ltered mental eibgts5909/03/2025AD (coronary artery disease)09/03/20256728Jnwzyieyxdfqco61/29/2025Seasonal allergic rhinitis 09/03/20257787Ibcrfdvz91/29/2025Well controlled type 2 diabetes mbafqrra60/29/2025 Acquired trigger iuhttq0209/03/2025arpal tunnel syndrome of right wrist09/03/2025 Localized, primary osteoarthritis of hand09/03/20250771Nragoufsmoa18/07/2025 Scyumffssnkwyw27/07/2025Hallux valgus (acquired), left foot02/10/2025Hallux valgus of right foot04/07/2025Osteoarthritis of knee02/10/2025Primary osteoarthritis, right ankle and foot02/10/2025hronic systolic heart failure 05/28/2024lcohol abuse05/22/20247410Ypcrri86/17/2024iabetes pmszfajh39/17/2024 Zqqnutnagrlbzq27/17/2024Essential ebbjdgqnmsrs81/17/2024GERD (gastroesophageal reflux disease)05/22/2024History of myocardial uspudkefju90/17/2024 Xbykwlqrclmoja14/17/2024Iron deficiency bcefzu4805/22/2024Mitral regurgitation 05/22/2024Obstructive sleep apnea blmocpvx91/17/2024ulmonary hypertension 05/22/2024ure jgkrpdqzdlfnpvyliytp51/17/2024Vitamin D mavotfkdgj04/17/2024hest pain10/17/2023NSTEMI (non-ST elevated myocardial infarction)10/17/2023iastolic heart rbedcdy01/trial bjcpszvxelff013Dyspnea on uysokovb21radycardiacquired bdqmornlhdusdj37/12/2011 Encounters DateTypeDepartmentCare LazhGofrgtunzsj65/30/2025 11:00 AM EDTOffice Visit [facility] [address] [place] [address] Bonnie Myles CNP Chronic systolic heart failure (CMS/HCC) (Primary Dx); Heart failure with improved ejection fraction (HFimpEF) (CMS/HCC); Stress-induced cardiomyopathy; Pulmonary hypertension (CMS/HCC); Longstanding persistent atrial fibrillation (CMS/HCC); 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)09/04/2025Orders Only [facility] [address] [place] [address] Zara Bradshaw MA Chronic diastolic heart failure (CMS/HCC) (Primary Dx)08/04/2025Telephone [facility] [address] [place] [address] Nayana Cisneros MA from Last 3 Months Immunizations ImmunizationAdministration DatesNext DueInfluenza Whole09/13/2010Influenza, High Dose Seasonal, Preservative Free08/14/2017,08/13/2013Influenza, High-dose Seasonal, Quadrivalent, Preservative Free08/30/2022,09/04/2020Influenza, Injectable, MDCK, preservative free08/06/2015Influenza, Seasonal, Quadrivalent, Sungwmuufv88/06/2023,10/15/2021Influenza, injectable, quadrivalent, preservative free08/15/2019Influenza, seasonal, injectable, preservative free, 6 moonths & older08/07/2012,08/22/2011Moderna SARS-CoV-2 Pyvvstjljnx05/03/2022Pneumococcal Conjugate PCV 13111/27/2016Pneumococcal Conjugate PCV 3Pneumococcal Polysaccharide FCQ1580RSV, Adult, Ahnvavyufog74/29/2024Zoster, Vkkxllhrqiv21/06/2023,07/05/2023 Family History RelationNameStatusCommentsFatherDeceasedMotherDeceased Social History Tobacco UseTypesPacks/DayYears UsedDateSmoking Tobacco: FormerCigarettes [...] CommentsUnknownSex and Gender InformationValueDate RecordedSex Assigned at Vjgxwr9310/18/2023 11:04 AM ESTLegal FwsXxoefp55/29/2022 11:41 PM EDTGender RiniixxaMctnir07/13/2023 11:04 AM ESTSexual OrientationChoose not to disclose 10/18/2023 11:04 AM EST Last Filed Vital Signs Vital SignReadingTime TakenCommentsBlood Tbkuxxfg505/6810 11:21 AM EDT Yatcl244609/04/2025 11:21 AM LDWPivgalwppjk52.3 ??C (97.3 ??F)10/20/2023 1:00 PM ESTRespiratory Kdim965612/27/2024 1:51 PM ESTOxygen Dhqxlqsohm79%09/04/2025 11:21 AM EDTInhaled Oxygen Concentration--Rfixsz52.7 kg (147 lb)09/04/2025 11:21 AM UVDSoekrw109 cm (5' 3 )09/04/2025 11:21 AM EDTBody Mass Index26.041 11:21 AM EDT Plan of Treatment Health MaintenanceDue DateLast DoneCommentsDiabetes: Hemoglobin A1C1946 Medicare Annual Wellness (AWV)1946Diabetes: Retinopathy Screening 1956Depression Yyaninsqi29/15/1958Diabetes: Urine Protein Screening 1965Adult Edjrwio9605/20/1968Fall Risk Plrstnxsd79/15/2011COVID-19 Vaccine ( season)/, 12/05/2023, 08/30/2022, Additional history existsInfluenza Vaccine (#1)/05/2024, 09/11/2023, 08/30/2022, Additional history existsPneumococcal Vaccine: 50+ YearsCompleted 07/05/2023, 09/27/2017, 08/07/2012Zoster RvnsvlfoXzmhqrfsv18/06/2023, 07/05/2023 HIB VaccinesAged OutNo longer eligible based on patient's age to complete this topicHPV VaccinesAged OutNo longer eligible based on patient's age to complete this topicIPV VaccinesAged OutNo longer eligible based on patient's age to complete this topicMeningococcal B VaccineAged OutNo longer eligible based on patient's age to complete this topicMeningococcal VaccineAged OutNo longer eligible based on patient's age to complete this topicRotavirus VaccinesAged Out No longer eligible based on patient's age to complete this topic Insurance Advance Directives * Full Code (Latest Code Status on File) Date ActivatedDate RxyngirxrlfKrphciog67/12/2023 8:17 PM10/20/2023 6:11 PM Care Teams Team MemberRelationshipSpecialtyStart DateEnd Date Toni Kraft MD [address] [facility] [place] [address] [facility]05/23/23
--- OUTSIDE RECORDS SUMMARY | 2025-09-16 13:50 | XMS_ITS | Patient Health Record ---
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 Name Role Phone Derrick Mathur Primary Care Provider Allergies No Known Allergies Results Component Value Reference Range Notes IRON Reviewed date:01/23/2025 05:06:16 PM Interpretation: Performing Lab: Notes/Report: [facility] , Iron 149.0 50.0-170.0 ug/dL Performing Lab:see noteML - [facility] LBLIPID PROFILE Reviewed date:01/23/2025 05:06:16 PM Interpretation: Performing Lab: Notes/Report: [facility] ,Suemvrahuieoq57<=150 mg/iDZirwkukscwr612<=200 mg/dLHDL Nycuetbncoe2148-61 mg/dL > or =60 mg/dl - LOW CARDIOVASCULAR RISK <40 mg/dl - HIGH CARDIOVASCULAR RISK LDL Cholesterol Xykgsohcwq29.0 <100 mg/dl OPTIMAL 100-129 mg/dl NEAR OR ABOVE OPTIMAL 130-159 mg/dl BORDERLINE HIGH 160-189 mg/dl HIGH >190 mg/dl VERY HIGH VLDL CHOLESTEROL9.8Chol HDL Ratio1.8 3.3 - 4.4 LOW RISK 4.4 - 7.1 AVERAGE RISK 7.1 - 11.0 MODERATE RISK >11.0 HIGH RISK Performing Lab:see noteML - [facility] LBPROF 14(COMP METB) Reviewed date:01/23/2025 05:06:16 PM Interpretation: Performing Lab: Notes/Report: [facility] ,Oqjdej930730-081 mmol/LPotassium3.93.5-5.1 mmol/YIysuuxze03807-232 mmol/LCarbon Unmgqui02.821.0-32.0 mmol/LAnion Gap14.5Mnmjmia15875-498 mg/dLBlood Urea Ozxuvkck22.07.0-18.0 mg/dLCreatinine1.000.55-1.02 mg/dLEstimated GFR ( Stephanie>60>=60 mL/min/1.73m 2Estimated GFR (Non- Ame54>=60 mL/min/1.73m 2 BUN Creatinine Ratio21.6Uoqabtq3.58.5-10.1 mg/dLBilirubin Total0.80.2-1.0 mg/dL Aspartate Amino Lzgcwagxmiq3754-39 U/LAlanine Txwuychnkqbiwwor5384-65 U/L Alkaline Vdavsnpxsdl32496-863 U/LTotal Protein7.06.4-8.2 g/dLAlbumin Level4.0 3.4-5.0 g/dLGlobulin3.0Albumin Globulin Ratio1.3Performing Lab:see note - [facility] LBT4 Reviewed date:01/23/2025 05:06:16 PM Interpretation: Performing Lab: Notes/Report: [facility] ,T4 Thyroxine4.704.80-13.90 ug/dLPerforming Lab:[facility] LBTSH Reviewed date:01/23/2025 05:06:16 PM Interpretation: Performing Lab: Notes/Report: [facility] ,Thyroid Stimulating Hormone<0.0070.358-3.740 uIU/mLPerforming Lab:see note - [facility] LBVITAMIN D 25 [place] Reviewed date:01/23/2025 05:06:16 PM Interpretation: Performing Lab: Notes/Report: [facility] ,Vitamin D39.0 <20 ng/mL Vit D deficient 20-<30 ng/mL Vit D insufficient 30-100 ng/mL Vit D sufficient >100 ng/mL Potential Toxicity Performing Lab:see [facility] LBGLYCOHEMOGLOBIN A1C Reviewed date:01/23/2025 05:06:16 PM Interpretation: Performing Lab: Notes/Report: [facility] ,Glycohemoglobin A1C5.94.5-6.2 % ADA RECOMMENDED LIMIT 4.0 - 6.0 ADA THERAPEUTIC TARGET < 7.0 ACTION SUGGESTED > 7.0 Estimated Average Kwrthgy437Wsryopmhqw Lab:see noteML - [facility] LB FREE T3 Reviewed date:01/23/2025 05:06:16 PM Interpretation: Performing Lab: Notes/Report: [facility] ,Free T34.162.18-3.98 pg/mLPerforming Lab:see noteML - [facility] LB CBC AUTO DIFF Reviewed date:01/23/2025 05:06:16 PM Interpretation: Performing Lab: Notes/Report: [facility] ,White Blood Count3.54.0-11.0 10 3/uLRed Blood Count3.774.20-5.40 10 6/uL Tdvwlgnjga20.412.0-16.0 g/bDTfgesleeoe91.936.0-48.0 %Mean Corpuscular Yeytex91.9 81.0-99.0 fLMean Corpuscular Fafzwlgyoe18.926.7-34.0 pgMean Corpuscular HGB Conc 33.629.9-35.2 g/dLRed Cell Distribution Width13.211.0-15.0 %Platelet Okelt563 150-450 10 3/uLMean Platelet Jeqhny70.99.5-13.5 fLNeutrophils Percent Auto33.5 43.0-75.0 %Lymphocytes Percent Auto49.120.5-60.0 %Monocytes Percent Auto14.51.7- 12.0 %Eosinophils Percent Auto2.00.9-7.0 %Basophils Percent Auto0.90.2-2.0 % Immature Granulocytes Pct Auto0.00.0-0.5 %Neutrophils Absolute Auto1.21.4-6.5 10 3/uLLymphocytes Absolute Auto1.71.2-3.8 10 3/uLMonocytes Absolute Auto0.50.3-0.8 10 3/uLEosinophils Absolute Auto0.10.0-0.7 10 3/uLBasophils Absolute Auto0.00.0- 0.1 10 3/uLImmature Granulocytes Abs Auto0.000.00-0.03 10 3/uLPerforming Lab:see noteML - [facility] LBMM tomosynthesis screening BI Reviewed date:06/25/2025 04:52:46 PM Interpretation: Performing Lab: Notes/Report: Source Facility: [facility]-[address] [place] [address] [place] [address] Mammography Report Signed Patient: ABDON CELESTE MR#: [id number] : 1945 Acct:[id number] Age/Sex: 80 / F ADM Date: 06/25/25 Loc: MAMMO Attending Dr: Toni Mathur M.D. Ordering Physician: Toni Mathur M.D. Results: Date of Service: 06/25/25 Follow Up: Procedure(s): MM tomosynthesis screening BI Accession Number(s): [id number] cc: Toni Mathur M.D. Patient Name: ABDON CELESTE MR#: [id number] : 1945 Exam Date: 06/25/2025 Ordering Doctor: DR TONI MATHUR . RADIOLOGY REPORT PROCEDURE: MM TOMOSYNTHESIS SCREENING BI COMPARISON: MM TOMOSYNTHESIS SCREENING BI, 06/24/2024. MM TOMOSYNTHESIS SCREENING BI, 06/21/2023. MG MAMM SCREEN 3D MIGUEL CAD, 06/20/2022. MG MAMM MIGUEL SCRN W CAD DIG, 01/21/2014. INDICATIONS: screening Calculator Name NCI Breast Cancer Risk Assessment Tool 5 Year Breast Cancer Risk 8.60% Lifetime Breast Cancer Risk 13.80% Personal Breast Cancer No Personal Ovarian Cancer No Treatments HYSTERECTOMY Family Cancers Mother with breast cancer at age 38; Sister with breast cancer at age 50; Sister with breast cancer at age 69; Daughter with ovarian cancer at age 40. LOCATION: [facility] BREAST COMPOSITION: There are scattered areas of fibroglandular density. FINDINGS: DIAGNOSTIC CATEGORY 1--NEGATIVE. RIGHT BREAST: No significant suspicious finding. LEFT BREAST: No significant suspicious finding. RECOMMENDATIONS: ROUTINE MAMMOGRAM AND CLINICAL EVALUATION IN 12 MONTHS. PLEASE NOTE: A NORMAL MAMMOGRAM DOES NOT EXCLUDE THE POSSIBILITY OF BREAST CANCER. A CLINICALLY SUSPICIOUS PALPABLE LUMP SHOULD BE BIOPSIED. Dictated by: Daniel Barrios MD on 06/25/2025 at 13:57 Approved by: Daniel Barrios MD on 06/25/2025 at 14:13 Dictated By: Daniel Barrios M.D. 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: Reason For Referral No Information Medications Medication SIG (Take, Route, Frequency, Duration) Notes Start Date End Date Status Aspirin Adult Low Dose 81 MG 1 tablet Orally Onc e a day 09/12/2024ctiveBiotinActiveLiothyronine Sodium 25 MCGTAKE 1 TABLET ONE TIME DAILY ON AN EMPTY STOMACH; Duration: 90 daysActiveEliquis 5 MG1 tablet Orally twice daily08/06/2024ctiveFreeStyle Luis 2 Jackson used to monitor blood sugar; Duration: 90 days dx E11.9 05/28/2025tiveLoratadine 10 MG1 tablet Orally Once a day09/12/2024ctive Ondansetron 4 MG1 tablet on the tongue and allow to dissolve Orally Q 6 hours PRN; Duration: 3PRN12/29/2023ctivePantoprazole Sodium 40 MGTAKE 1 TABLET EVERY EVENING; Duration: 90ActiveMetoprolol Succinate ER 25 MGTAKE 1/2 TABLET ONE TIME DAILY; Duration: 90ActivePotassium Chloride ER 10 MEQ2 tablet with food Orally Twice a day08/06/2024ctiveTest Strips -1 strip via meter once daily to monitor glucose DX E11.9; Duration: 90 days10/06/2023ctiveFarxiga 10 MG1 tablet Orally Once a day09/12/2024ctiveFreeStyle Luis 2 Sensor - 14 day sensor; Duration: 28 days dx E11.9 05/28/2025tiveoxyBUTYnin Chloride ER 10 MGTAKE 1 TABLET EVERY DAY; Duration: 90ActiveFenofibrate Micronized 134 MGTAKE 1 CAPSULE EVERY DAY; Duration: 90 ActiveFerrous Sulfate 325 (65 Fe) MG1 tablet Orally twice daily09/12/2024ctive Fish Oil 1200 MG1 capsule Orally once daily09/12/2024ctiveAtorvastatin Calcium 80 MG1 tablet Orally Once a day; Duration: 90 daysActiveFurosemide 40 MGTAKE 1 TABLET EVERY MORNING; Duration: 90 daysActiveLancets 33G -1 lancet to monitor glucose once daily; Duration: 90 days10/06/2023ctiveLevothyroxine Sodium 88 MCG TAKE 1 TABLET EVERY DAY; Duration: 90 daysActive Immunizations Vaccine Route Administration Date Status Comme nts Flu, Fluad (68123) 65 yrs and older, single-dose syringe (7598-0632) IM Intramuscular 09/12/2024 Administered Pneumococcal (Pneumovax 23)Cbnjorr9408/07/2012dministeredPneumococcal (Prevnar 13)Rqxfdcl1909/27/2017AdministeredPneumococcal (Prevnar 20)Litcxdt6707/05/2023 AdministeredRSV VgkfqxdXxphphn92/29/0311ZkhnoiwnobhpUVVS-IJM-3 (COVID 19 Pfizer 30mcg/0.3mL)Ypvytrl7412/11/20206268JkkturajgazkNLDU-LHE-3 (COVID 19 Pfizer 30mcg/0.3mL), darius fmstmorBjykcen05/03/4503MjewgfjdzeklAGCL-WXX-6 (COVID 19 Pfizer Booster 0.3mL)Tkadggq9201/01/20211237SswwxknxsspbTUQJ-RBK-4 (COVID 19 Pfizer Booster 0.3mL)Fqhvoin62/12/2650RonzgbwppjxkJRCO-UTU-3 (COVID 19 Pfizer Comirnaty 12+, SDV, 3911-4399)Eyebibp9908/30/20227392CedyuugkoyemNJDW-XMF-0 COVID-19, mRNA, LNP- S, PF, darius-sucrose, 30 mcg/0.3 wGQsyyeqz77/30/2024dministeredShingrix (Zoster) Ciedzvr2907/05/2023dministeredShingrix (Zoster)Qwdnkyu41/06/2023Administered Social History Tobacco Use: Social History Observation Description Date Details (start date - stop date) Former Smoker NA - 11/05/1985 Tobacco Use/Smoking Question Answer Notes Patient is a former smoker When did you stop smoking?11/05/1985How long has it been since you last smoked?> 10 yearsAlcohol Screen (Audit-C) Question Answer Notes Did you have a drink containing alcohol in the p ast year? Yes How often did you have 6 or more drinks on one occasion in the past year?Never (0 point)How many drinks did you have on a typical day when you were drinking in the past year?1 or 2 drinks (0 point)How often did you have a drink containing alcohol in the past year?Less than monthly (1 point)Oqkslr4Ejrhkjcqizckis NegativeAUDIT-C (Standard) Question Answer Notes Did you have a drink containing alcohol in the p ast year? Yes How often did you have a drink containing alcohol in the past year?Never (0 point)How many drinks did you have on a typical day when you were drinking in the past year?1 or 2 drinks (0 point)How often did you have six or more drinks on one occasion in the past year?4 or more times a week (4 points)Points4 InterpretationPositive Problems Problem Type SNOMED Code ICD Code Onset Dates Problem Status W/U Status Risk Notes Problem Essential hypertension (25882966 ) Essential (primary) hypertension (I10) ActiveconfirmedProblemHypothyroidism (45244514)Hypothyroidism, unspecified (E03.9)ActiveconfirmedProblemObstructive sleep apnea syndrome (disorder) (78910687)Obstructive sleep apnea (adult) (pediatric) (G47.33)Activeconfirmed ProblemHyperlipidemia (38891639)Hyperlipidemia, unspecified (E78.5)Active confirmedProblemHypomagnesemia (091486493)Hypomagnesemia (E83.42)Activeconfirmed ProblemAcute non-ST segment elevation myocardial infarction (165384754)Non-ST elevation (NSTEMI) myocardial infarction (I21.4)ActiveconfirmedProblemSeasonal allergic rhinitis (743528619)Other seasonal allergic rhinitis (J30.2)Active confirmedProblemShortness of breath (987083614)Shortness of breath (R06.02) ActiveconfirmedProblemHypertension (10327170)Hypertension (I10)Activeconfirmed ProblemAtrial fibrillation (disorder) (22750459)Afib (I48.91)Activeconfirmed ProblemCoronary artery disease (95387593)CAD (coronary artery disease) (I25.10) ActiveconfirmedProblemAtrial fibrillation (45366927)A-fib (I48.91)Active confirmedProblemType 2 diabetes mellitus (64728288)Type 2 diabetes mellitus (E11.9)ActiveconfirmedProblemCarpal tunnel syndrome of right wrist (227362079113996)Carpal tunnel syndrome of right wrist (G56.01)Activeconfirmed ProblemAcquired hypothyroidism (377114827)Acquired hypothyroidism (E03.9)Active confirmedProblemDiverticulitis (09567660)Diverticulitis (K57.92)Activeconfirmed ProblemVomiting (222494505)Vomiting (R11.10)ActiveconfirmedProblemIron deficiency anemia (17894640)Anemia, iron deficiency (D50.9)Activeconfirmed ProblemAcquired trigger finger (9271383)Trigger index finger of right hand (M65.321)ActiveconfirmedProblemAcute bronchiolitis (9844748)Acute bronchiolitis (J21.9)ActiveconfirmedProblemAltered mental status (045619441)Altered mental status (R41.82)ActiveconfirmedProblemAcute exacerbation of chronic obstructive airways disease (522538526)Acute exacerbation of chronic obstructive airways disease (J44.1)ActiveconfirmedProblemType II diabetes mellitus well controlled (032657250)Diabetes mellitus type 2, controlled (E11.9)ActiveconfirmedProblem Essential hypertension (31482200)BP (high blood pressure) (I10)Activeconfirmed ProblemLocalized, primary osteoarthritis of the hand (099620011)Arthritis of carpometacarpal (CMC) joint of left thumb (M18.12)ActiveconfirmedProblem Permanent atrial fibrillation (098515104)Permanent atrial fibrillation (I48.21) ActiveconfirmedProblemDiabetes mellitus (21385840)Diabetes mellitus (E11.9) Activeconfirmed Vital Signs Blood pressure diastolic 82 mm Hg 05/28/2025 Ivuojq80 in05/28/2025lood pressure mm Hg05/28/20250876Ttxbtw198 lbs 05/28/2025BMI25.68 kg/m205/28/2025 Encounters Encounter Location Date Provider Diagnosis [facility] [address] [place] [address] 05/28/2025 Derrick Hoy Permanent atrial fibrillation I48.21 ; Hypothyroidism, unspecified E03.9 ; Essential (primary) hypertension I10 and Diabetes mellitus type 2, controlled E11.9 [facility] [address] [facility] [place] [address] 01/23/2025 Derrick Mathur Permanent atrial fibrillation I48.21 ; Hypothyroidism, unspecified E03.9 ; Essential (primary) hypertension I10 ; Diabetes mellitus type 2, controlled E11.9 and Non-ST elevation (NSTEMI) myocardial infarction I21.4 [facility] [address] [place] [facility] [place] [address] 01/02/2025 Derrick Hoy [facility] [place] [facility] [place] [address] 01/23/2025Doug [facility] [place] [facility] [place] [address]/Doug [facility] [place] [facility] [place] [address]/[facility] [facility] [place] [address]/[facility] [place] [facility] [place] [address]/Do Swapnil Assessments Encounter Date Diagnosis (ICD Code) Assessment Notes Treatment Notes Treatment Clinical Notes Section Notes 01/23/2025 Hypothyroidism, unspecified (ICD -10 - E03.9) 01/23/2025Permanent atrial fibrillation (ICD-10 - I48.21)05/28/2025Permanent atrial fibrillation (ICD-10 - I48.21)martin hcgckgmuqj94/23/2025Hypothyroidism, unspecified (ICD-10 - E03.9)on meds01/23/2025Essential (primary) hypertension (ICD-10 - I10)05/28/2025Essential (primary) hypertension (ICD-10 - I10)stable on meds01/23/2025Diabetes mellitus type 2, controlled (ICD-10 - E11.9)05/28/2025 Diabetes mellitus type 2, controlled (ICD-10 - E11.9)110's 0 disussed diet an diblncp5501/23/2025Non-ST elevation (NSTEMI) myocardial infarction (ICD-10 - I21.4) Plan Of Treatment Pending Test Test Name Order Date CMP (COMPLETE METABOLIC PANEL) 4 UA (URINALYSIS, COMPLETE) 12/13/2023 HEMOGLOBIN A1C (GLYCO) 01/23/2025 IRON, TOTAL 01/23/2025 LIPID PANEL (CHOL/TRIG/HDL/LDL) 01/24/20 25 VITAMIN D, 25 LEVEL (TOTAL) 01/23/2025 T3 FREE, T4 FREE and TSH 11/21/2023 CMP - Comprehensive Metabolic Panel 11/2022 CBC W/AUTO DIFF 09/06/2023 CBC W/AUTO DIFF 12/13/2023 CULTURE URINE 12/13/2023 GLYCOHEMOGLOBIN A1C 09/06/2023 LIPID PROFILE 09/06/2023 TROPONIN, HIGH SENSITIVITY 12/13/2023 THYROID PANEL (T4/TSH/FREE T3) 4 THYROID PANEL (T4/TSH/FREE T3) 3 THYROID PANEL (T4/TSH/FREE T3) 5 Vitamin D 11/21/2023 CMP (COMP MET BARLOW) w/eGFR CKD-EPI 2024 CBC WITH DIFF 01/23/2025 Next Appt Details Provider Name:Derrick Mathur, 01:00:00 PM, [address] [place], [address], Insurance Providers Payer Name Payer Address Payer Phone Subscriber Number Group Number Insured Name Patient Relationship to Insured Coverage Start Date Coverage End Date MEDIC[place] [address] [place] [address] [id number] Cintia Celesteelf - patient is the [id number] 2011[facility] [address] [place] [id number] F Boonie, JacquelineSelf - patient is the [id number] 2022 Medications Administered Medication Instructions Date of Administration Dosage Notes Kenalog-40 380 mg Medical (General) History Medical History History ICD Code Sleep apnea G47.30 COVID-19 U07.1 Congestive heart failure I50.9 Atrial fibrillation I48.91 Dyspnea R06.00 Bradycardia R00.1 Rectocele N81.6 Diabetes mellitus E11.9 Osteoarthritis of knee M17.9 Alcohol abuse F10.10 Degenerative disc disease, lumbar M51.36 Pure hypercholesterolemia E78.00 Hypertriglyceridemia E78.1 Ventricular hypertrophy I51.7 Mitral regurgitation I34.0 GERD (gastroesophageal reflux disease) K 21.9 Asthma J45.909 Surgical History Surgery Date(Month/Year) Tubal Ligation Hysterecomy- PartialKnee [facility]- [facility] Surgery- RightHeart CathEGD 01/24/2024Left knee injection- Dr. Dawn Surgery- Right Hand03/2025 Hospitalization History Reason Date(Month/Year) [place] 10/28 rsv 10/28
--- OUTSIDE RECORDS SUMMARY | 2025-09-16 13:50 | XMS_ITS | Encounter Summary ---
Author Organization [facility] Address [address] [place] [address] Care Team Providers Care Systems Integration Advisor Name Role Phone Toni Kraft MD Primary Care Provider [phone] Reason for Referral * Imaging (Routine) - Pending ReviewSpecialtyDiagnoses / ProceduresReferred By ContactReferred To ContactCardiology Diagnoses Chronic diastolic heart failure (CMS/HCC) Procedures Transthoracic echo (TTE) complete Bonnie Myles CNP [address] [place] [address] Phone: tel: fax: Referral IDStatusReasonStart DateExpiration DateVisits RequestedVisits [id number] Review Perform Procedure 51 Encounter Details DateTypeDepartmentCare Team (Latest Contact Info)Itibblknywq67/30/2025Orders Only [facility] Heart at [address] [phone] Zara Bradshaw MA Chronic diastolic heart failure (CMS/HCC) (Primary Dx) Social History Tobacco UseTypesPacks/DayYears UsedDateSmoking Tobacco: FormerCigarettes Smokeless Tobacco: NeverAlcohol UseStandard Drinks/WeekCommentsYes0 (1 standard drink = 0.6 oz pure alcohol)4 to 5 mix drinks per dayHumiliation, Afraid, Rape, and Kick questionnaireAnswerDate RecordedWithin the last year, have you been afraid of your partner or ex-partner?No12/12/2023Emotionally AbusedNot on file 10/17/2023hysically AbusedNot on file10/17/2023Sexually AbusedNot on file 10/17/2023Overall Financial Resource Strain (CARDIA)AnswerDate RecordedHow hard is it for you to pay for the very basics like food, housing, medical care, and heating?Not hard at all10/17/2023UT Safety & EnvironmentAnswerDate Recorded Within the last year, have you been afraid of your partner or ex-partner?No 10/17/2023Emotionally AbusedNot on file10/17/2023hysically AbusedNot on file 10/17/2023Sexually AbusedNot on file10/17/2023In the past year have you been physically or sexually abused?Unrecognized value10/17/2023TransportationAnswer Date RecordedIn the past 12 months, has lack of transportation kept you from medical appointments or from getting medications?No10/17/2023Lack of Transportation (Non-Medical)Not on file10/17/2023Housing Stability Vital Sign AnswerDate RecordedUnable to Pay for Housing in the Last YearNot on file 10/17/2023Number of Places Lived in the Last YearNot on file10/17/2023In the last 12 months, was there a time when you did not have a steady place to sleep or slept in ashelter (including now)?No10/17/2023Hunger Vital SignAnswerDate RecordedWithin the past 12 months, you worried that your food would run out before you got the money to buymore.Never true10/17/2023Ran Out of Food in the Last YearNot on file10/17/2023CommentsUnknownSex and Gender Information ValueDate RecordedSex Assigned at MflbrEmvtig84/13/2023 11:04 AM ESTLegal Sex Ywclwz0605/04/2022 11:41 PM EDTGender NzrlzeisRhuqkg94/13/2023 11:04 AM ESTSexual OrientationChoose not to efnihwsy73/13/2023 11:04 AM ESTdocumented as of this encounter Functional Status * BPAnswerDate of GdgcfcfhkpMghnvt496/6810 11:21 AM Nayana Oseguera MA * PulseAnswerDate of HnupypbuymBsnxbx6032/30/2025 11:21 AM Nayana Oseguera MA * Patient PositionAnswerDate of UxbbddemrgAfacygXcymkxn84/30/2025 11:21 AM EDT Nayana Cisneros MA * BPAnswerDate of GwzlxlsjjvXjzlwt812/6810 11:21 AM Nayana Oseguera MA * PulseAnswerDate of AyndavdwflGukshx4235 11:21 AM Nayana Oseguera MA * SdA3BcerepGkjv of HadxbisaqnUqomae5125/30/2025 11:21 AM Nayana Oseguera MA * BP LocationAnswerDate of AssessmentAuthorRight arm09/04/2025 11:21 AM EDT Nayana Cisneros MA * Patient PositionAnswerDate of XnwfabtlsqZmdehvMftfztl06/30/2025 11:21 AM EDT Nayana Cisneros MA documented as of this encounter Plan of Treatment NameTypePriorityAssociated DiagnosesOrder ScheduleTransthoracic echo (TTE) completeEchocardiographyRoutine Chronic diastolic heart failure (CMS/HCC) Expected: 09/04/2025 (Approximate), Expires: 09/04/2027documented as of this encounter Visit Diagnoses Diagnosis Chronic diastolic heart failure (CMS/HCC)- Primary Chronic diastolic heart failure documented in this encounter Care Teams Team MemberRelationshipSpecialtyStart DateEnd Date Toni Kraft MD [address] [facility] [address] [place] [address] PCP - [facility]05/23/23documented as of this encounter
--- OUTSIDE RECORDS SUMMARY | 2025-09-16 13:50 | XMS_ITS | Clinical Summary ---
Author Organization [facility] Address [address] [place] [address] Care Team Providers Care Haulpak Driver Name Role Phone Toni Kraft MD Primary Care Provider [phone] Social History Tobacco UseTypesPacks/DayYears UsedDateSmoking Tobacco: Never Assessed CommentsUnknownSex and Gender InformationValueDate RecordedSex Assigned at Not on fileLegal RsdVlzaaq17/27/2014 2:36 PM EDTGender IdentityNot on fileSexual OrientationNot on file Plan of Treatment Not on file Insurance Care Teams Team MemberRelationshipSpecialtyStart DateEnd oTni Kraft MD [facility]
--- OUTSIDE RECORDS SUMMARY | 2025-09-16 13:50 | XMS_ITS | Clinical Summary ---
Author Organization [facility] Address [address] [place] [address] Care Team Providers Care Commanding Officer Garage Name Role Phone Toni Kraft MD Primary Care Provider [phone] Allergies No known active allergies Medications MedicationSigDispense QuantityRefillsLast FilledStart DateEnd DateStatus potassium chloride CR (Klor-Con M10) 10 MEQ ER tablet Take 2 tablets by mouth in the morning and 2 tablets before bedtime.05/26/2023 Active oxybutynin XL (Ditropan-XL) 10 MG 24 hr tablet Active omega-3 (fish oil) 600 MG capsule 1 capsule 1 (one) time each day at the same timeActive liothyronine (Cytomel) 25 MCG tablet 11/21/2023ctive levothyroxine (Synthroid, Levoxyl) 88 MCG tablet Take 1 tablet by mouth DailyActive furosemide (Lasix) 40 MG tablet Take 1 tablet by mouth in the morning.11/03/2023ctive ferrous sulfate 325 (65 Fe) MG tablet 1 (one) time each day at the same timeActive fenofibrate micronized (Lofibra) 134 MG capsule Active atorvastatin (Lipitor) 80 MG tablet Take 40 mg by mouth at pnxrlzm0811/03/2023ctive Eliquis 5 MG tablet Take 1 tablet by mouth in the morning and 1 tablet before bedtime.Active pantoprazole (ProtoNix) 40 MG EC tablet Take 40 mg by mouth at uewnicz6701/23/2024ctive dapagliflozin (Farxiga) 10 MG 10 mg in the morning.Active metoprolol succinate XL (Toprol-XL) 25 MG 24 hr tablet 05/10/2024ctive aspirin 81 MG EC tablet Take 81 mg by mouth DailyActive biotin 86515 MCG tablet Take by mouthActive loratadine (Claritin) 10 MG tablet Take by mouthActive iron polysaccharides (Nu-Iron,Niferex) 150 MG capsule Take 150 mg by mouth DailyActive celecoxib (CeleBREX) 200 MG capsule Indications:Arthritis of carpometacarpal (CMC) joint of left thumbTake 1 capsule (200 mg) by mouth Daily Take with food 30 capsule tive Active Problems ProblemNoted DateDiagnosed MiiaYqcrvpgkkmgbbq42/07/1003Pncjghuyndp67/07/2025 Hallux valgus (acquired), left foot02/10/2025Hallux valgus of right foot 02/10/2025Osteoarthritis of knee02/10/2025Primary osteoarthritis, right ankle and foot02/10/2025hronic systolic heart qzlhyse90/23/0725Yqvqzc01/17/2024 Diabetes /17/9172Ejerqpvxwxlznj14/17/2024GERD (gastroesophageal reflux disease)05/22/2024History of myocardial gqbzlljdra36/17/2024Iron deficiency jkmfnp3105/22/2024Mitral skuoxvhucnjdy90/17/2024Obstructive sleep apnea syndrome 4Pulmonary kxkfyitozync07/17/2024Pure pfoguawlvmvkyakwpfbl98/17/2024 Vitamin D sqihtaopdf00/17/2024Myocardial jfuhflgkwd31/12/2023Diastolic heart vaoktat6905/19/2022trial pbmnqfddzdys94/27/1591Whhesjyjohm56/16/2018Dyspnea on sfvfwfoi45/16/2018Acquired sofqvjiaohisrx30/12/2011Essential hypertension 07/18/20113398Rijeicetnjvrkvxrqtid09/12/2011 Encounters DateTypeDepartmentCare HoduYvscydnlkta76/14/2025 9:30 AM EDTOffice Visit [facility] [address] [facility] [address] Jr. Cristiano Ballard DO Carpal tunnel syndrome of right wrist (Primary Dx); Arthritis of carpometacarpal (CMC) joint of left thumb; Trigger index finger of right hand08/19/2025amboo flowsheet [facility] [address] Jr. Cristiano Ballard DO 08/19/20257221Pgisci13/10/2025 9:00 AM EDTOffice Visit [facility] [address] [place] [address] Marquise Castaneda, DPM Plantar wart, left foot (Primary Dx); Acquired keratoderma; Pain in toe of left foot; Difficulty jodisqt4808/15/2025amboo flowsheet [facility] [address] [place] [address] Marquise Castaneda DPM 08/15/20251242Noitsd28/23/2025 6:00 PM EDTProcedure Visit [facility] [address] [facility] [address] [place] [id number] [facility], Pepe Rodriguez MD Numbness (Primary Dx); Paresthesias; Pain in both upper extremities; Carpal tunnel syndrome, ftyeyiarw34/23/0117Ieodds26/17/2025Telephone [facility] [phone] [facility] [address] [place] [address] Jessica Redding 07/22/2025 9:30 AM EDTOffice Visit [facility] [address] [place] [address] Samir Coley PA Right hand pain (Primary Dx); Carpal tunnel syndrome of right wrist; Arm weakness; Numbness; Arm pain, right; Trigger index finger of right hand; Dupuytren's /16/2025amb flowsheet [facility] [address] [place] [address] Samir Coley PA 07/22/2025Travelfrom Last 3 Months Family History Medical HistoryRelationNameCommentsHeart diseaseFatherCancerMotherBernette SampselRelationNameStatusCommentsFatherDeceasedMotherBernette SampselDeceased Social History Tobacco UseTypesPacks/DayYears UsedDateSmoking Tobacco: FormerCigarettesQuit: 1984Smokeless Tobacco: Never Tobacco Cessation:Counseling Given: Not Answered Alcohol UseStandard Drinks/WeekCommentsYes0 (1 standard drink = 0.6 oz pure alcohol)1-2 drinks 2-3 times a weekCommentsUnknownSex and Gender InformationValueDate RecordedSex Assigned at BirthNot on fileLegal SexFemale 01/18/2023 7:05 PM EDTGender IdentityNot on fileSexual OrientationNot on file Last Filed Vital Signs Vital SignReadingTime TakenCommentsBlood Xvrhbktl812/76001/20/2020 12:00 PM EDT Pulse--Temperature--Respiratory Rate--Oxygen Saturation--Inhaled Oxygen Concentration--Obtspn07.8 kg (145 lb)08/15/2025 8:51 AM ONLRodcwo823 cm (5' 3 ) 08/15/2025 8:51 AM EDTBody Mass Index25.6908/15/2025 8:51 AM EDT Plan of Treatment DateTypeDepartmentCare Team (Latest Contact Info)Rcrgyctpqds70/22/2026 1:30 PM ESTOffice Visit [facility] [address] [place] [address] Marquise Castaneda DPM [address] [place], [place] [id number] Health MaintenanceDue DateLast DoneCommentsCOVID-19 Vaccine ( season) 5012/05/2023, 03/08/2022, 03/08/2022, Additional history existsInfluenza Vaccine (#1)511/05/2024, 09/11/2023, 08/30/2022, Additional history existsPneumococcal Vaccine: 65+ AwcajUwrfzemfk60/30/2023, 09/27/2017, 08/07/2012 Procedures Procedure NamePriorityDate/TimeAssociated DiagnosisCommentsCAST / SPLINT / FX Wojiptw3607/22/2025 10:16 AM EDT Carpal tunnel syndrome of right wrist from Last 3 Months Results * Cast / Splint / Fx (07/22/2025 10:16 AM EDT) Narrative Samir Coley PA - 07/22/2025 10:16 AM EDT KEERTHI Pompa 07/22/2025 10:18 AM Cast / Splint / Fx Date/Time: 07/22/2025 10:16 AM Performed by: KEERTHI Pompa Authorized by: KEERTHI Pompa Consent given by: patient Injury Location details: right wrist Pre-procedure assessment Distal perfusion: normal ?? Distal sensation: normal ?? Range of motion: reduced ?? Procedure Manipulation performed? no manipulation performed Immobilization: splint Splint/Brace type: wrist cock-up Post-procedure assessment neurovascularly intact Range of motion: unchanged Patient tolerance: patient tolerated the procedure well with no immediate complications Comments A right L3908 Wrist Hand Orthosis, Wrist Extension Control Cock-Up, non-molded, prefabricated, off the shelf brace was applied. This brace will be used to immobilize the wrist and allow for full and complete healing of the wrist. The function of the device is to provide support, decrease edema, control motion at wrist joint. The goals of the device are to decrease pain decrease inflammation, increase stability and to allow the patient to continue to use hand and wrist to complete ADLs. The device is medically necessary for the condition, symptoms and diagnosis. It was dispensed and fitted for the patient, and it fit properly. The patient was educated as to proper use and care, and this was reviewed in detail. Written instructions and warranty information were given with the device. A receipt for the device is on file. The current supplier standards were given to the patient. [employer] patient agreement was completed at time of dispensement. The patient stated that the device was comfortable when fitted in the office. At the time of dispensement, the device was suitable and not substandard. ?? Authorizing ProviderResult TypeResult StatusMatthew Louie Coley PAIN CLINIC/BEDSIDE ORDERABLESFinal Result from Last [place] [phone] Care Teams Team MemberRelationshipSpecialtyStart DateEnd Toni Kraft MD [address] [place] [address] PCP - GeneralFamily Medicine03/20/25
--- OUTSIDE RECORDS SUMMARY | 2025-09-16 13:52 | XMS_ITS | CCD ---
Author Organization [facility] CliniSynj Care Team Providers Care Adventure Challenge Instructor Name Role Phone DENZEL OHARA Admitting Unavailable DENZEL OHARA Attending Unavailable SELF, REFERRED Referring Unavailable BEN MATHUR Primary Care Unavailable KEVAN, DR CONTRERAS Admitting Unavailable IRAY, DR CONTRERAS Attending Unavailable IRAY, DR CONTRERAS Primary Care Unavailable HOY, DR CONTRERAS Consulting Unavailable ZIEBER, DR VIRAL Amado Consulting Unavailable IRAY, DR CONTRERAS Admitting Unavailable HOY, DR CONTRERAS Attending Unavailable IRAY, DR CONTRERAS Primary Care Unavailable HOY, DR CONTRERAS Consulting Unavailable HOY, DR CONTRERAS Admitting Unavailable HOY, DR CONTRERAS Attending Unavailable HOY, DR CONTRERAS Primary Care Unavailable HOY, DR CONTRERAS Consulting Unavailable IRAY, DR CONTRERAS Admitting Unavailable HOY, DR CONTRERAS Attending Unavailable KEVAN, DR CONTRERAS Primary Care Unavailable KEVAN, DR CONTRERAS Consulting Unavailable Ben Mathur Primary Care Physician Price Dejesus Attending Unavailable Price Dejesus Attending Unavailable Ben Mathur Referring Unavailable Jax TROY Attending Unavailable Price Dejesus Admitting Unavailable Price Dejesus Referring Unavailable Price Dejesus Attending Unavailable Ben Mathur MD Primary Care Provider Ben Mathur MD Primary Care Provider [phone] JOSE COLEY Referring Unavailable BEN MATHUR Primary Care Unavailable JOSE COLEY Referring Unavailable BEN MATHUR Primary Care Unavailable TA LANE Attending Unavailable BEN MATHUR Referring Unavailable BEN MATHUR Primary Care Unavailable Ben Mathur MD Primary Care Provider Ben Mathur MD Primary Care Provider [phone] JOSE COLEY Attending Unavailable JOSE COLEY Attending Unavailable ROYER VAUGHAN Attending Unavailable JOSE COLEY Attending Unavailable SMITHA REDDING Attending Unavailable JOSE COLEY Referring Unavailable VIRAL CASTANEDA Attending Unavailable JR. BALLARD GEORGE C Attending Unavaila DIANE Anderson Attending Unavailable SAADIA MYLES Attending Unavailable Allergies Allergy ClassificationReported Allergen(s)Allergy TypeDate of OnsetReaction(s) Facility (1 source)Amino AcidsDrug AllergyThe [facility] ([facility])Sulfonamides (Antibiotic)Drug allergy (disorder)61-63-7283[facility] Repository (1 source)No Known Medication Allergies; 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: [No Known Medication Allergies]Propensity to adverse reactions (disorder)[facility] Repository (5 sources)Sulfonamides (Antibiotic); 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: [SULFA (SULFONAMIDE ANTIBIOTICS)]Propensity to adverse reactions to cyws40-25[facility]8301[facility] Medications Current Medications MedicationDrug Class(es)DatesSig (Normalized)Sig (Original)acetaminophen 325 mg / HYDROcodone bitartrate 5 mg oral tablet (1 source)Opioid AgonistStart: 03-05-2025 End: 13-63-7385zhfq 1 tablet by mouth every six hours for painHYDROcodone- acetaminophen (Thayer) 5-325 MG tablet Indications: Trigger middle finger of right hand , Trigger ring finger of right hand Take 1 tablet by mouth every 6 (six) hours if needed for severe pain for up to 3 days 12 tablet 03/05/2025 03/08/2025 Activeaspirin 81 mg delayed release oral tablet (20 sources)Platelet Aggregation Inhibitor, Nonsteroidal Anti-inflammatory Drug Start: 50-24-7324rzgg 1 mg by mouth once dailyaspirin 81 mg Oral EC Tab mg tab(s), Oral, Daily, Refills(s) 0, Prophylaxis Start Date: 01/17/24 Status: Orderedatorvastatin 80 mg oral tablet (20 sources)HMG-CoA Reductase InhibitorStart: 19-64-3057rgii 1 tablet by mouth once dailyatorvastatin 80 mg Tab 80 mg = 1 tab(s), Oral, Daily, Refills(s) 0, High cholesterol Start Date: 12/18/23 Status: OrderedStart: 11-03-2023 atorvastatin (Lipitor) 80 MG tablet Take 40 mg by mouth at bedtime 11/03/2023 Activetake 1 tablet by mouth in the morningatorvastatin (LIPITOR) 40 mg tablet Take 1 tablet (40 mg total) by mouth in the morning. Activebiotin 10 mg oral tablet (20 sources)biotin 52462 MCG tablet Take by mouth Activebiotin 10 mg tablet Take 10,000 mcg by mouth in the morning. Activecelecoxib 200 mg oral capsule (2 sources)Nonsteroidal Anti-inflammatory DrugStart: 08-19-2025 End: 28-82-6560iivl 1 capsule by mouth once daily at mealtimecelecoxib (CeleBREX) 200 MG capsule Indications: Arthritis of carpometacarpal (CMC) joint of left thumb Take 1 capsule (200 mg) by mouth Daily Take with food 30 capsule 08/19/2025 09/18/2025 Activedapagliflozin 10 mg oral tablet (20 sources)Sodium-Glucose Cotransporter 2 InhibitorStart: 82-98-6870xuxp 1 tablet by mouth in the morningdapagliflozin propanediol (FARXIGA) 10 mg tablet Take 1 tablet (10 mg total) by mouth in the morning. 02/05/2025 Active dapagliflozin (Farxiga) 10 MG 10 mg in the morning. Activediclofenac sodium 75 mg delayed release oral tablet (1 source)Nonsteroidal Anti-inflammatory Drugtake 1 tablet by mouth once daily as neededdiclofenac (VOLTAREN) 75 mg EC tablet Take 1 tablet (75 mg total) by mouth daily as needed. Activeempagliflozin 10 mg oral tablet (3 sources)Sodium-Glucose Cotransporter 2 InhibitorStart: 03-80-4848iisc 1 tablet by mouth once daily in the morningJardiance 10 mg oral tablet 10 mg = 1 tab(s), Oral, qAM, Refills(s) 0, Blood glucose Start Date: 12/18/23 Status: Orderedfenofibrate 134 mg oral capsule (20 sources)Peroxisome Proliferator Receptor alpha AgonistStart: 69-21-6184bvwt 1 capsule by mouth once dailyfenofibrate 134 mg oral capsule 134 mg = 1 cap(s), Oral, Daily, Refills(s) 0, High cholesterol Start Date: 12/18/23 Status: Ordered ferrous sulfate 325 mg oral tablet (20 sources)ferrous sulfate 325 (65 Fe) MG tablet 1 (one) time each day at the same time ActiveFish Oils (20 sources)omega-3 (fish oil) 600 MG capsule 1 capsule 1 (one) time each day at the same time ActiveFurosemide (20 sources)Loop DiureticStart: 41-71-1605kiwsrhdcih Refills(s) 0, diuretic/water pill Start Date: 01/17/24 Status: OrderedStart: 01-17-2024 furosemide Refills(s) 0 Start Date: 01/17/24 Status: OrderedStart: 86-46-5446yfey 1 tablet by mouth in the morningfurosemide (Lasix) 40 MG tablet Take 1 tablet by mouth in the morning. 11/03/2023 Activelevothyroxine sodium 0.088 mg oral tablet (20 sources)l-Thyroxinetake 1 tablet by mouth once dailylevothyroxine (Synthroid, Levoxyl) 88 MCG tablet Take 1 tablet by mouth Daily Activetake 1 tablet by mouth every other daylevothyroxine (SYNTHROID, LEVOTHROID) 25 MCG tablet Take 1 tablet (25 mcg total) by mouth every other day. Active levothyroxine (SYNTHROID, LEVOTHROID) 50 MCG tablet Take 88 mcg by mouth every other day. Activeliothyronine sodium 0.025 mg oral tablet (20 sources)l-TriiodothyronineStart: 97-29-2869rolw 1 tablet by mouth once daily Cytomel 25 mcg Tab 25 mcg = 1 tab(s), Oral, Daily, Refills(s) 0, Thyroid Start Date: 12/18/23 Status: OrderedStart: 85-14-2494iokgijpjgdph (Cytomel) 25 MCG tablet 11/21/2023 Activetake 5 tablets by mouth in the morningliothyronine (CYTOMEL) 5 MCG tablet Take 5 tablets (25 mcg total) by mouth in the morning. Activelisinopril 5 mg oral tablet (6 sources)Angiotensin Converting Enzyme InhibitorStart: 11-03-2023 End: 70-47-6741rijm 1 tablet by mouth in the morninglisinopril 5 MG tablet Take 5 mg by mouth in the morning. 11/03/2023 01/07/2025 Discontinued (Med list cleanup)loratadine 10 mg oral tablet (20 sources)loratadine (Claritin) 10 MG tablet Take by mouth Activelosartan potassium 50 mg oral tablet (8 sources)Angiotensin 2 Receptor BlockerStart: 08-02-2023 End: 34-26-4529squplsxq (Cozaar) 50 MG tablet 08/02/2023 02/18/2025 Discontinued (Therapy completed)24 hr metoprolol succinate 25 mg extended release oral tablet (20 sources)beta-Adrenergic BlockerStart: 91-26-0964ppijwwtzyg succinate XL (Toprol-XL) 25 MG 24 hr tablet 05/10/2024 ActiveStart: 94-46-9637uywiymssqb 25 mg ER Tab 12.5 mg = 0.5 tab(s), Oral, Daily, Refills(s) 0, High blood pressure Start Date: 12/18/23 Status: Orderedtake 0.5 tablet by mouth in the morning, then take 0.5 tablet by mouth at bedtimemetoprolol tartrate (LOPRESSOR) 25 mg tablet Take 0.5 tablets (12.5 mg total) by mouth in the morning and 0.5 tablets (12.5 mg total) before bedtime. Active End: 01-63-0516rrotaechck tartrate (Lopressor) 25 MG tablet every 12 (twelve) hours 02/18/2025 Discontinued (Therapy completed)Multiple Vitamins-Minerals (HAIR SKIN & NAILS ADVANCED PO) (5 sources) End: 57-60-6059Apaxzqiv Vitamins-Minerals (HAIR SKIN & NAILS ADVANCED PO) Take by mouth 02/18/2025 Discontinued (Therapy completed)Multiple Vitamins-Minerals (HAIR SKIN & NAILS ADVANCED PO) Take by mouth Activenitroglycerin 0.4 mg sublingual tablet (1 source)Nitrate VasodilatorStart: 78-80-8572fubxjjeuslbow (NITROSTAT) 0.[address] 1 tablet (0.4 mg total) under the tongue every 5 (five) minutes as needed. 10/20/2023 Activeomega-3 fatty acids-fish oil (FISH OIL) 300-1,000 mg capsule (2 sources)take 1 capsule by mouth in the morningomega-3 fatty acids-fish oil (FISH OIL) 300-1,000 mg capsule Take 1 capsule (1 g total) by mouth inthe morning. Activeondansetron 4 mg disintegrating oral tablet (3 sources)Serotonin-3 Receptor AntagonistStart: 06-28-0207trjx 1 tablet by mouth every six hours as needed for nauseaondansetron 4 mg Dis Tab 4 mg = 1 tab(s), Oral, q6hr, PRN Nausea/Vomiting, Refills(s) 0 Start Date:12/18/23 Status: Gleyvjc01 hr oxybutynin chloride 10 mg extended release oral tablet (20 sources)Cholinergic Muscarinic AntagonistStart: 28-45-9385mpbz 1 tablet by mouth once dailyoxybutynin 10 mg ER Tab 10 mg = 1 tab(s), Oral, Daily, Refills(s) 0, Bladder problems Start Date: 12/18/23 Status: Orderedoxybutynin XL (Ditropan-XL) 10 MG 24 hr tablet Activepantoprazole 40 mg delayed release oral tablet (20 sources)Proton Pump InhibitorStart: 17-97-2946dhmu 1 tablet by mouth at bedtimepantoprazole (ProtoNix) 40 MG EC tablet Take 40 mg by mouth at bedtime 01/23/2024 Activepolysaccharide iron complex 150 mg oral capsule (18 sources)take 1 capsule by mouth once dailyiron polysaccharides (Nu- Iron,Niferex) 150 MG capsule Take 150 mg by mouth Daily Activemicroencapsulated potassium chloride 10 meq extended release oral tablet (20 sources)Start: 10-49-5753hgrp 2 tablets by mouth in the morningpotassium chloride (KLOR-CON M 10) 10 MEQ CR tablet Take 2 tablets (20 mEq total) by mouth in the morning and 2 tablets (20 mEq total) before bedtime. 07/30/2024 Active Start: 87-09-0656Jmxmcxfwv Chloride (Eqv-K-Tab) Oral, BID, Refills(s) 0, Prophylaxis Start Date: 01/17/24 Status: OrderedStart: 46-20-5492Yuoqyrgec Chloride (Eqv-K-Tab) Oral, BID, Refills(s) 0 Start Date: 01/17/24 Status: Ordered Start: 59-41-0923fohs 2 tablets by mouth in the morningpotassium chloride CR (Klor-Con M10) 10 MEQ ER tablet Take 2 tablets by mouth in the morning and 2 t ablets before bedtime. 05/26/2023 Activespironolactone 25 mg oral tablet (3 sources)Aldosterone AntagonistStart: 82-38-4113prjf 1 tablet by mouth once dailyspironolactone 25 mg Tab 25 mg = 1 tab(s), Oral, Daily, Refills(s) 0, diuretic/water pill Start Date: 12/18/23 Status: Orderedsucralfate 1000 mg oral tablet (5 sources)Aluminum ComplexStart: 02-19-2024 End: 44-51-2207rufcciduik (Carafate) 1 g tablet Take 1 g by mouth in the morning and 1 g at noon and 1 g in the evening and 1 g before bedtime. 02/19/2024 01/07/2025 Discontinued (Med list cleanup)Start: 01-24-2024 End: 73-43-0533lmkj 1 tablet by mouth four times dailyCarafate 1 gram Tab 1 gm = 1 tab(s), Oral, QID, X 30 day(s), # 120 tab(s), Refills(s) 3, Pharmacy: [id number], 160, cm, 01/24/24 8:16:00 EDT, Height/Length Dosing, 71.2, kg, 01/24/24 8:16:00 EDT, Weight Dosing Start Date: 01/24/24 Stop Date: 05/23/24 Status: OrderedVentolin HFA 90 mcg/inh Aerosol-Adpt (3 sources)Start: 46-29-4446edmm 2 puff(s) by inhalation every four hours Ventolin HFA 90 mcg/inh Aerosol-Adpt 2 puff(s), Inhalation, q4hr Shortness of breath or wheezing, Refill(s) 0 Start Date: 12/18/23 Status: Ordered Completed/Discontinued Medications MedicationDrug Class(es)DatesSig (Normalized)Sig (Original)apixaban 5 mg oral tablet (20 sources)Factor Xa InhibitorStart: 10-14-2023 Problems Active Problems Problem ClassificationProblemDateDocumented DateEpisodic/ChronicAcquired foot deformities (19 sources)Acquired left hallux valgus; 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: [Hallux valgus (acquired), left foot]Onset: 667631-50-9621NqyhlnpSljmpvhq foot deformities (19 sources)Hallux valgus (acquired), right foot; 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: [Hallux valgus (acquired)]Onset: 266498-73-9198DpmnxfyUnlwr myocardial infarction (20 sources)Myocardial infarction; 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: [Acute myocardial infarction, unspecified]Onset: 788796-22-8381TacsdmaEuzdsqq-egdqdkt disorders (3 sources)Alcohol -67-5645BxmmnknZenots (20 sources)Asthma; 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: [Unspecified asthma, uncomplicated]Onset: 953281-90-1519TkuhedeRpnvhba dysrhythmias (20 sources)Atrial fibrillation; 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: [Unspecified atrial fibrillation] Onset: 065236-14-2212HstrclgFrpsoal dysrhythmias (20 sources)Bradycardia; 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: [Bradycardia, unspecified]Onset: 164573-28-4073ErbpxirxVtmjakngyk associated with dizziness or vertigo (2 sources)Dizziness; 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: [Dizziness]Onset: 75-59-3162Xvmhjaim Congestive heart failure; nonhypertensive (20 sources)Congestive heart failure; 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: [Diastolic heart failure] Onset: 209160-51-1452MboaozmVyyvfnpq atherosclerosis and other heart disease (20 sources)History of myocardial infarction; 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: [Old myocardial infarction]Onset: 596458-98-3369UmnwuipRcnsdwpq mellitus without complication (20 sources)Diabetes mellitus; 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: [Type 2 diabetes mellitus without complications]Onset: 525568-89-2224ZjjclrqTguchvyq mellitus without complication (1 source)Other abnormal glucose; 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: [OTHER ABNORMAL GLUCOSE]Onset: 26-99-9172VvdegyqqUburqxwnr of lipid metabolism (20 sources)Hyperlipidemia, unspecified; 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: [Hyperlipidemia]Onset: 91-10-8321WqqmoutIxyzcrjzgrpimc and diverticulitis (20 sources)Diverticular disease; 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: [Diverticula of intestine]Onset: 391497-78-3283MeujncbDbefkvljmt disorders (20 sources)Gastroesophageal reflux disease; 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: [Gastroesophageal reflux disease without esophagitis]Onset: 561246-60-5674EmvtittTlfcddfxd hypertension (20 sources)Essential hypertension; 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: [Essential (primary) hypertension]Onset: 763539-15-0188KqtepigQnskqufuk and duodenitis (1 source)Gastritis; 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: [Other gastritis without bleeding]Onset: 44-79-6654GwcxdzixCoktc valve disorders (20 sources)Mitral valve regurgitation; 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: [Nonrheumatic mitral (valve) insufficiency]Onset: 160866-06-8738WwqtmlkMsovqdaskxx (1 source)Hemorrhoids; 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: [Unspecified hemorrhoids]Onset: 02-07-2024 EpisodicMalaise and fatigue (1 source)Other fatigue; 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: [OTHER FATIGUE]Onset: 76-55-0376Ttixauxz Menopausal disorders (2 sources)Atrophic vaginitis; 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: [Postmenopausal atrophic vaginitis] Onset: 066549-89-2812MmalmxuVxifypaklvb deficiencies (20 sources)Vitamin D deficiency, unspecified; 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: [Vitamin D deficiency]Onset: 928891-90-4684HhiwmrjVatnrxnmxldokf (20 sources)Arthritis of first carpometacarpal joint of left hand; 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: [Unilateral primary osteoarthritis of first carpometacarpal joint, left hand] Onset: 236748-35-5735XldhmiwZmhvg aftercare (1 source)Long-term current use of anticoagulant; 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: [oysterman (current) use of anticoagulants]Onset: 97-62-4187FmchqrkfYrphx and ill-defined heart disease (3 sources)Ventricular edblcxtswwh08-55-9500MiyseyfXrxmw connective tissue disease (4 sources)Pain in right hand; 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: [Pain in right hand]01-07-2025 EpisodicOther connective tissue disease (10 sources)Triggering of digit; 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: [Trigger finger, right middle finger]03-89-6235BouzqeiwSwqvc connective tissue disease (4 sources)Muscle weakness of upper limb; 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: [Other symptoms and signs involving the musculoskeletal system]04-92-3470MmzkgtjyAykty connective tissue disease (4 sources)Pain in right arm; 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: [Pain in right arm]07-22-2025 EpisodicOther connective tissue disease (2 sources)Pain in left dev50-05-4769SulkkgjfLbknl connective tissue disease (2 sources)Dupuytren's contracture; 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: [Palmar fascial fibromatosis [Dupuytren]]54-25-4503StkhktfoHjsoa connective tissue disease (1 source)Pain of bilateral upper limbs; 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: [Pain in right arm] 27-03-4170BbkrgaohEoqnb connective tissue disease (2 sources)Pain of toe of left foot; 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: [Pain in left toe(s)] 85-75-4010MumgicdpOkvkq lower respiratory disease (1 source)Dyspnea, unspecified; 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: [DYSPNEA UNSPECIFIED]Onset: 97-56-8675NaninjkuHsiau nervous system disorders (4 sources)Carpal tunnel syndrome of right wrist; 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: [Carpal tunnel syndrome, right upper limb]19-20-3972IneibceKjxqc nervous system disorders (1 source)Bilateral carpal tunnel syndrome; 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: [Carpal tunnel syndrome, bilateral upper limbs]65-29-4745ZpkyefwDqcis nervous system disorders (2 sources)Difficulty walking; 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: [Difficulty in walking, not elsewhere classified]72-01-4311DgjhspjVodbv nervous system disorders (5 sources)Numbness; 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: [Anesthesia of skin]85-16-3729HhgpnyajFgwpi nervous system disorders (1 source)Paresthesia; 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: [Paresthesia of skin]83-27-2508Ysspnwdi Other non-traumatic joint disorders (19 sources)Arthropathy; 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: [Arthropathy, unspecified]Onset: 460723-68-5470CvtphkqFdhkg screening for suspected conditions (not mental disorders or infectious disease) (9 sources)Encounter for screening for malignant neoplasm of rectum; 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: [Encounter for screening mammogram for malignant neoplasm of breast]Onset: 26-64-7707TkntymzjQrsnu skin disorders (2 sources)Acquired keratoderma; 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: [Acquired keratosis [keratoderma] palmaris et plantaris]30-59-0590MsoiltbwRduajerhw heart disease (20 sources)Pulmonary hypertension; 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: [Pulmonary hypertension, unspecified]Onset: 770680-89-0190MepbqytPusgglbr codes; unclassified (20 sources)Obstructive sleep apnea syndrome; 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: [Obstructive sleep apnea (adult) (pediatric)]Onset: 596514-10-4333DshymwpRyepwmzd codes; unclassified (2 sources)Family history of malignant neoplasm of breast; 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: [FAMILY HX MALIG NEOPLASM OF BREAST]Onset: 04-30-4455JbvyrxktHqcfrcqv codes; unclassified (1 source)Family history of malignant neoplasm of digestive organ; 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: [Family history of malignantneoplasm of digestive organs]Onset: 02-07-2024 EpisodicResidual codes; unclassified (1 source)Family history of breast cancer; 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: [Family history of malignant neoplasm of breast]21-90-7540PfeqygsgCaztoks disorders (19 sources)Acquired hypothyroidism; 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: [Hypothyroidism, unspecified] Onset: 483757-31-4717IvknlfwExmpqvozewqp (3 sources)CONTACT W/AND (SUSP) EXPOS COVID-19; 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: [CONTACT W/AND (SUSP) EXPOS COVID-19]Onset: 30-47-1747Usfunaidxiqo (1 source)COUGH, UNSPECIFIED; 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: [COUGH, UNSPECIFIED]Onset: 07-53-6428Gwzpapguwprk (3 sources)Lixxnvpqbecrdf36-95-8277Tfvyprorjayi (1 source)Gynecologic ExamOnset: 69-63-4532Lrajgoizfmkt (2 sources)Valve Disorder; 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: [Valve Disorder]Onset: 77-64-8085Qbiyd infection (2 sources)Plantar wart of left foot; 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: [Plantar wart]08-15-2025 Episodic Past or Other Problems Problem ClassificationProblemDateDocumented DateEpisodic/ChronicDeficiency and other anemia (20 sources)Iron deficiency anemia; 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: [Iron deficiency anemia, unspecified]Onset: 168273-80-6421OidsiewlDyzw disorders (1 source)Mood disordersOnset: Other lower respiratory disease (19 sources)Dyspnea on exertion; 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: [Other forms of dyspnea]Onset: 173469-51-4777ZujnywrgOprxvirp codes; unclassified (1 source)Family history of malignant neoplasm of ovary; 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: [FAM HX MALIGNANT NEOPLASM OVARY]Onset: 52-97-0528XnejpuewOlabvozbtshz (1 source)CONTACT W/AND (SUSP) EXPOS COVID-19; 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: [CONTACT W/AND (SUSP) EXPOS COVID-19]Onset: 10-26-2022 Results Test NameValueInterpretationReference RangeFacilityOffice Visiton 09-04-2025 Follow-up [id number] Rachel Orozco 1945 Date Provider Department Center 09/04/2025 SAADIA TELLEZ DAVID [facility] Family History Family Status - Relation Status Age at Mother Father Level of Service:[address] [place] OFFICE/OUTPATIENT ESTABLISHED MOD MDM 30 MIN Reason for Visit and Comments: Follow-up [488343] - Patient is here today for a 6 month follow up appointment. Patient states she is feels like she is catching a cold.Patient seen otho for hand pain, she was prescribed Celebrex, patient hasn't started it due to wanting to make sure its ok with the rest of her medication. Patient denies chest pain, leg swelling, palpitations/racing. Congestive Heart Failure [127] Bradycardia [346081] Atrial Fibrillation [80] Hypertension [886486] NSTEMI. [Other] Hyperlipidemia [182] Valve Disorder [3372] - Mitral regurgitation Pulmonary Hypertension [818] Coronary Artery Disease [187] Dizziness [122305] - Occasional dizziness/lightheaded with position changes NormalUnPremier Health [facility] Hospital NorthOrders Onlyon 32-36-5476Ejrufk Only [id number] Rachel Orozco 1945 Date Provider Department Center 09/04/2025 CAROL ALMAZAN DAVID [facility] Family History Family Status - Relation Status Age at Mother Father DeceasedNormalUniversMercer County Community HospitalNo Panel Informationon 90-89-7978LljjcuyKEERTHI Pompa 07/22/2025 10:18 AM Cast / Splint / Fx Date/Time: 07/22/2025 10:16 AM Performed by: KEERTHI Pompa Authorized by: KEERTHI Pompa Consent given by: patient Injury Location details: right wrist Pre-procedure assessment Distal perfusion: normal Distal sensation: normal Range of motion: reduced Procedure Manipulation performed? no manipulation performed Immobilization: [...] supplier standards were given to the patient. [employer] patient agreement was completed at time of dispensement. The patient stated that the device was comfortable when fitted in the office. At the time of dispensement, the device was suitable and not substandard. [facility]36on [id number] found in media along with Dr Henry's message was faxed with conformation 02/25 at 3:36NoalUniSal[facility]36Office send cleaarace request on this pt on 02/17 re Eleno protocol prior to ortho surgery. Have not had any response since then. Please adviseNormal [facility] Memorial HospitalBASIC METABOLIC PANLon 32-43-6546Hdzqf gap [Moles/Vol]11 mmol/LNormal5-15[facility] HospitalComment on above: Performed By: #### GIOVANNI MCCULLOUGH #### [facility] ([id number]) [address] [place], [place] [address]Etvezgm [Mass/Vol]10.1 mg/dLNormal8.5-10.5Pro[facility] HospitalComment on above:Performed By: #### CBCA, BMP #### [facility] ([id number]) [address], [address] [place], [place] [address]Oerwqrcv [Moles/Vol]106 mmol/JAtueih29-961IvbByckwdMedical Center HospitalComment on above:Performed By: #### JAMEL, BMP #### [facility] ([id number]) [address], [address] [place], [place] [address]NX6 [Moles/Vol]26 mmol/HWzknsm11-72CwsBrxqteOhio State East Hospital Comment on above:Performed By: #### JAMEL, BMP #### [facility] ([id number]) [address], [address] [place], [place] [address]Afkvsgnupg [Mass/Vol]0.94 mg/dLNormal0.40-1.00[facility] HospitalComment on above:Result Comment: METHOD TRACEABLE TO IDMS STANDARD Performed By: #### JAMEL, BMP #### [facility] ([id number]) [address], [address] [place], [place] [address]GRL/1.73 sq M.predicted among non-blacks MDRD (S/P/Bld) [Vol rate/Area]62 mL/min/{1.73_m2}Normal>59ProMedical Center HospitalComment on above:Result Comment: Reported eGFR is based on the CKD-EPI 2020 equation that does not use a race coefficient.Performed By: #### JAMEL, BMP #### [facility] ([id number]) [address], [address] [place], [place] [address]Aafaywp [Mass/Vol]114 mg/pPOaxu73-48KbbIkpubeWilson Memorial Hospital Comment on above:Performed By: #### JAMEL, BMP #### [facility] ([id number]) [address], [address] [place], [place] [address]Xsyfmaqcx [Moles/Vol]4.1 mmol/LNormal3.5-5.0ProMedical Center HospitalComment on above:Performed By: #### CBCA, BMP #### [facility] ([id number]) [address], [address] [place], [place] [address]Roltik [Moles/Vol]143 mmol/MUncshf690-630PxkPjcapa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 Dr Mathur 01/04/2024 for diverticulitis. Patient was originally referred to Dr Troy on 12/01/2023 for screening colonoscopy and diverticulitis. Patients last colonoscopy was 01/20/2016. [place] [facility]: 12/15/2023 - Evaluation for nausea, abdominal cramping and dry heaving. Patient is on Eliquis for A-fib and Occult Blood- positive. CT scan with left colitis Referral Note: Sent: 12/01/2023 13:09:02 EST Addendum by Yudelka Croft LPN on December 25, 2023 15:18 EST (Verified) After review of medical records, patient with CT confirmed colitis. Per Dr. Troy, patient would better be served by gastroenterology. PCP office made aware. Appointment with this office cancelled. madelinea , abd. pain change in bowel habits. [...] EGD Endoscopy (Hospital Procedure) Chronic anticoagulation (Z79.01: long-term (current) use of anticoagulants) Colitis (K52.9: Noninfective [...] with voice recognition artificial intelligence software, specifically [employer], [employer] and or [employer]. Substitutions may have occurred due to the [...] Known Allergies No K (more content not included)...[facility] HospitalComment on above:Result Comment: Electronically Signed By: Anjelica WILSON, Price Magana\.br\Date and Time Signed: 01/17/2412:12 EDTLab Reportson 35-18-9780Hji Reports [id number]#1.00[facility] HospitalLab [id number]#1.00[facility] HospitalLab Reports [id number]#1.00[facility] HospitalLab [id number]#1.00[facility] HospitalRAD - CT Reporton 68-19-3574WUV - CT Report [id number]#1.00[facility] HospitalPhysician Referralon 04-05-2060Emobtmkeh Referral [id number]#1.00[facility] HospitalPhysician Referralon 84-16-0235Mibgstnzv Referral [id number]#1.00TIFFNoHaydee Brandenburg Centersian [id number]#1.00TIFFNormal Willard [facility] HospitalCovid-19 PCR (CVDTBH)on 79-25-6712YBWI-CoV-2 (COVID- 19) RNA CIARAN+probe Ql (Unsp spec)Not detectedNormalNOT DETECTEDThe [facility] HospitalComhenry ford cottage hospital on above:Result Comment: When diagnostic testing is negative, the [...] for this test is supported by the [employer] Leader of Health and Human Service's declaration that circumstances exist to justify the emergency use of in vitro diagnostics for the detection and/or diagnosis of the virus that causes COVID-19. This EUA will remain in effect for the duration of the COVID-19 declaration justifying emergency of IVDs, unless it is terminated or revoked by the FDA (after which the test may no longer be used).Performed By: #### CVDTBH #### [facility] [address] [address] [address] Mildred ÁlvarezINFLMERANZA A AND B AGon 95-98-8553ESZSSOGQYPOFP [facility] TrumbullComhenry ford cottage hospital on above:Result Comment: Negative for Flu A protein angiten. Infection due to Flu A cannot be ruled out. FluA angiten in the sample may be below the detection limit of the test.Performed By: #### INFLUAB ####[facility] [address] [place], [place] [address]KdDr. Mildred ÁlvarezINFLUBNEGHSEE BELOWNormalThe [place] HospitalComment on above:Result Comment: Negative for Flu B protein antigen. Infection due to Flu B cannot be ruled out. FluB antigen in the sample may be below the detection limit of the test.Performed By: #### INFLUAB ####[facility] [address] [address]Dr. Mildred ÁlvarezINFLUENZA A AGNegativeNormalNEGATIVE SEE COMMENTThe [facility]wood HospitalComment on above:Performed By: #### INFLUAB ####[facility] [address] [place], [place] [address]Dr. Mildred TamayoUENZA B AGNegativeNormalNEGATIVE SEE COMMENTThe [facility] Comment on above:Performed By: #### INFLUAB ####[facility] Zargpvcnz[address] [place], [place] [address]DrBrendan ÁlvarezINTERNAL CONTROLSWithin Normal LimitsNormalWithin Normal LimitsThe [facility]wood HospitalComment on above: Performed By: #### INFLUAB ####[facility] S[address]feiy[address] [place], [place] [address]Dr. Mildred Calderon BLD IMMUNO SCREENon 09-12-2022 OCCULT BLOODNegativeNormalNEGATIVEParkwood HospitalComment on above: Performed By: #### OBSCRN #### [facility] [address] [place] [address] Dr. Mildred Feldman AUTO DIFFon 68-44-2539VOHP #0.0 103/ulNormal0.0-0.1The [facility]wood HospitalComment on above:Performed By: #### CBC #### [facility] [address] [place] [address] Dr. Mildred Welchsophils/100 WBC (Bld)0.9 %Normal0.2-2.0The [facility] Comment on above:Performed By: #### CBC #### [facility] [address] [place] [address] Dr. Mildred Gordon #0.2 103/ulNormal0.0-0.7The [facility] HospitalComment on above: Performed By: #### CBC #### [facility] [address] [address] [address] Mildred Patelosinophils/100 WBC (Bld)4.8 %Normal0.9-7.0The [facility] Comment on above:Performed By: #### CBC #### [facility] [address] [place] [address] Dr. Mildred Patelrythrocyte distribution width (RBC) [Ratio]12.5 %Saxrxr58.0-15.0 The [facility]wood HospitalComment on above:Performed By: #### CBC #### [facility] [address] [place] [address] Dr. Mildred ÁlvarezHematocrit (Bld) [Volume fraction]36.7 %Cuhmsq76.0-48.0The [facility] HospitalComment on above:Performed By: #### CBC #### [facility] [address] [place] [address] Dr. Mildred ÁlvarezHemoglobin (Bld) [Mass/Vol]11.9 g/dLCritically low12.0-16.0The [facility] HospitalComment on above:Performed By: #### CBC #### [facility] [address] [place] [address] Dr. Mildred Welch #0.02 10e3/ulNormal0.00-0.03The [facility] HospitalComment on above:Performed By: #### CBC #### [facility] [address] [place] [address] Dr. Mildred ÁlvaerzIG %0.5 %Normal0.0-0.5The [facility] Westment on above: Performed By: #### CBC #### [facility] [address] [place] [address] Dr. Mildred SmallMPH #1.6 103/ulNormal1.2-3.8The [facility] HospitalComment on above:Performed By: #### CBC #### [facility] [address] [place] [address] Dr. Mildred Smallmphocytes/100 WBC (Bld)37.4 %Cgmbvj11.5-60.0The [facility] HospitalComment on above:Performed By: #### CBC #### [facility] [address] [place] [address] Dr. Mildred Walker DIFF REQNONormalThe [facility]wood HospitalComment on above: Performed By: #### CBC #### [facility] [address] [place] [address] Dr. Mildred Cates (RBC) [Entitic mass]32.2 owBhotbp10.7-34.0The [facility] HospitalComment on above:Performed By: #### CBC #### [facility] [address] [place] [address] Dr. Mildred Cates (RBC) [Mass/Vol]32.4 g/cGSbjnrj66.9-35.2The [facility] HospitalComment on above:Performed By: #### CBC #### [facility] [address] [place] [address] Dr. Mildred Cates (RBC) [Entitic vol]99.5 fLCritically high81.0-99.0The [facility] HospitalComment on above:Performed By: #### CBC #### [facility] [address] [place] [address] Dr. Mildred Travis #0.6 103/ulNormal0.3-0.8The [facility] HospitalComment on above:Performed By: #### CBC #### [facility] [address] [place] [address] Dr. Mildred Coronadoocytes/100 WBC (Bld)13.5 %Critically high1.7-12.0The [facility] HospitalComment on above:Performed By: #### CBC #### [facility] [address] [place] [address] Dr. Mildred Stover #1.9 103/ulNormal1.4-6.5The [facility] on above:Performed By: #### CBC #### [facility] [address] [place] [address] Dr. Mildred Conleyutrophils/100 WBC (Bld)42.9 %Critically low43.0-75.0The [facility] Westment on above:Performed By: #### CBC #### [facility] [address] [address] [address] Mildred ÁlvarezPlatelet mean volume (Bld) [Entitic vol]11.1 fLNormal9.5-13.5The [facility] HospitalComhenry ford cottage hospital on above:Performed By: #### CBC #### [facility] [address] [place] [address] Dr. Mildred ÁlvarezPLT212 103/xuPijggo798-165Soz [facility] HospitalComhenry for[facility] hospital on above: Performed By: #### CBC #### [facility] [address] [place] [address] Dr. Mildred ÁlvarezRBC3.69 106/ulCritically low4.20-5.40The [facility] on above:Performed By: #### CBC #### [facility] [address] [place] [address] Dr. Mildred ÁlvarezWBC4.4 103/ulNormal4.0-11.0The [facility] on above: Performed By: #### CBC #### [facility] [address] [place] [address] Dr. Mildred ÁlvarezFRAGUSTÍN T3on 69-82-9954FLPN T31.92 pg/mlLCritically low2.18-3.98The [facility] on above:Performed By: #### CMP, T4, FT3, LIPID, TSH #### [facility] [address] [place] [address] Dr. Mildred ÁlvarezGLYCOHEMOGLOBIN A1Con 43-53-3566RLY RECOMMENDATIONSEE BELOWNormal The [facility] HospitalComhenry for[facility] hospital on above:Result Comment: ADA RECOMMENDED LIMIT 4.0 - 6.0 ADA THERAPEUTIC TARGET < 7.0 ACTION SUGGESTED > 7.0Performed By: #### A1C #### [facility] [address] [place] [address] Dr. Mildred ÁlvarezGlucose [Mass/Vol]140 mg/dLNormalThe [facility] on above:Performed By: #### A1C #### [facility] [address] [place] [address] Dr. Mildred ÁlvarezHbA1c (Bld) [Mass fraction]6.5 %Critically high4.5-6.2The [facility] HospitalComment on above:Performed By: #### A1C #### [facility] [address] [place] [address] Dr. Mildred RagsdaleID PROFILEon 71-39-8222CHXO-HDL RATIO NORMSEE BELOWBucyrus Community HospitalComment on above:Result Comment: 3.3 - 4.4 LOW RISK 4.4 - 7.1 AVERAGE RISK 7.1 - 11.0 MODERATE RISK >11.0 HIGH RISKPerformed By: #### CMP, T4, FT3, LIPID, TSH #### [facility] [address] [place] [address] Dr. Mildred Parhamesterol [Mass/Vol]153 mg/dLNormal<=200The [facility] Comment on above:Performed By: #### CMP, T4, FT3, LIPID, TSH #### [facility] [address] [place] [address] Dr. Mildred Parhamesterol in HDL [Mass/Vol]44 mg/lJJmtsae34-03Krd [facility] HospitalComhenry for[facility] hospital on above:Performed By: #### CMP, T4, FT3, LIPID, TSH #### [facility] [address] [place] [address] Dr. Mildred Parhamesterol in LDL [Mass/Vol]82.6 mg/dLNoSamaritan HospitalComment on above:Performed By: #### CMP, T4, FT3, LIPID, TSH #### [facility] [address] [place] [address] Dr. Mildred Molina.total/Cholesterol in HDL [Mass ratio]3.5 {ratio} NormalThe [facility] on above:Performed By: #### CMP, T4, FT3, LIPID, TSH #### [facility] [address] [place] [address] Dr. Mildred Mayes NORMAL> or = 60 mg/dl - LOW CARDIOVASCULAR RISK <40 mg/dl - HIGH CARDIOVASCULAR RISKNormalThe [facility] HospitalComment on above:Performed By: #### CMP, T4, FT3, LIPID, TSH #### [facility] [address] [address] [address] Mildred ÁlvarezLDL CALC NORMALSEE BELOWBucyrus Community HospitalComment on above:Result Comment: <100 mg/dl OPTIMAL 100 - 129 mg/dl NEAR OR ABOVE OPTIMAL 130 - 159 mg/dl BORDERLINE HIGH 160 - 189 mg/dl HIGH >190 mg/dl VERY HIGH Performed By: #### CMP, T4, FT3, LIPID, TSH #### [facility] [address] [address] [address] Mildred ÁlvarezTriglyceride [Mass/Vol]132 mg/dLNormal<=150The [facility] Comment on above:Performed By: #### CMP, T4, FT3, LIPID, TSH #### [facility] [address] [place] [address] Dr. Mildred ÁlvarezVLDL CALC26.4 mg/dLNoSamaritan HospitalComment on above: Performed By: #### CMP, T4, FT3, LIPID, TSH #### [facility] [address] [place] [address] Dr. Mildred ÁlvarezPROMoustapha 14(COMP METB)on 45-76-9462Saglhig [Mass/Vol]3.7 g/dLNormal 3.4-5.0The [facility] HospitalComment on above:Performed By: #### CMP, T4, FT3, LIPID, TSH #### [facility] [address] [place] [address] Dr. Mildred ÁlvarezAlbumin/Globulin [Mass ratio]1.2 {ratio}NormalThe [facility] HospitalComhenry ford cottage hospital on above:Performed By: #### CMP, T4, FT3, LIPID, TSH #### [facility] [address] [place] [address] Dr. Mildred Lima [Catalytic activity/Vol]52 U/ZUatami32-853Tty [facility] Westment on above:Performed By: #### CMP, T4, FT3, LIPID, TSH #### [facility] [address] [place] [address] Dr. Mildred Storm [Catalytic activity/Vol]35 U/EFvhpgq68-36Abs [facility] HospitalComment on above:Performed By: #### CMP, T4, FT3, LIPID, TSH #### [facility] [address] [place] [address] Dr. Mildred Youngbloodon gap [Moles/Vol]9.5 mmol/LNormalThe [facility] HospitalComment on above:Performed By: #### CMP, T4, FT3, LIPID, TSH #### [facility] [address] [place] [address] Dr. Mildred ÁlvarezAST [Catalytic activity/Vol]19 U/CDneosp01-30Yra [facility] HospitalComment on above:Performed By: #### CMP, T4, FT3, LIPID, TSH #### [facility] [address] [place] [address] Dr. Mildred ÁlvarezBilirubin [Mass/Vol]0.3 mg/dLNormal0.2-1.0[facility] Comment on above:Performed By: #### CMP, T4, FT3, LIPID, TSH #### [facility] [address] [place] [address] Dr. Mildred ÁlvarezCalcium [Mass/Vol]9.4 mg/dLNormal8.5-10.1[facility] Comment on above:Performed By: #### CMP, T4, FT3, LIPID, TSH #### [facility] [address] [place] [address] Dr. Mildred ÁlvarezChloride [Moles/Vol]106 mmol/CWekrwb37-956Sfk [facility] Comment on above:Performed By: #### CMP, T4, FT3, LIPID, TSH #### [facility] [address] [place] [address] Dr. Mildred ÁlvarezCO2 [Moles/Vol]28.9 mmol/ATkjtyg70.0-32.0The [facility] Comment on above:Performed By: #### CMP, T4, FT3, LIPID, TSH #### [facility] [address] [place] [address] Dr. Mildred ÁlvarezCreatinine [Mass/Vol]1.04 mg/dLCritically high0.55-1.02[facility] Hospitalment on above:Performed By: #### CMP, T4, FT3, LIPID, TSH #### [facility] [address] [place] [address] Dr. Mildred PatelGFR-AF DANISH>60Normal>=60The [facility] HospitalComment on above:Performed By: #### CMP, T4, FT3, LIPID, TSH #### [facility] [address] [address] [address] Mildred PatelGFR-NON AF DANISH>60Normal>=60The [facility] HospitalComment on above:Performed By: #### CMP, T4, FT3, LIPID, TSH #### [facility] [address] [place] [address] Dr. Mildred ÁlvarezGlobulin (S) [Mass/Vol]3.2 g/dLNormalThe [facility] HospitalComment on above:Performed By: #### CMP, T4, FT3, LIPID, TSH #### [facility] [address] [address] [address] Mildred ÁlvarezGlucose [Mass/Vol]131 mg/dLCritically bmsj41-787Xyg [facility] on above:Performed By: #### CMP, T4, FT3, LIPID, TSH #### [facility] [address] [place] [address] Dr. Mildred ÁlvarezPotassium [Moles/Vol]4.4 mmol/LNormal3.5-5.1The [facility] Comment on above:Performed By: #### CMP, T4, FT3, LIPID, TSH #### [facility] [address] [address] [address] Mildred ÁlvarezProtein [Mass/Vol]6.9 g/dLNormal6.4-8.2The [facility] Comment on above:Performed By: #### CMP, T4, FT3, LIPID, TSH #### [facility] [address] [address] [address] Mildred ÁlvarezSodium [Moles/Vol]140 mmol/HDwmhao890-818Hwr [facility] Comment on above:Performed By: #### CMP, T4, FT3, LIPID, TSH #### [facility] [address] [place] [address] Dr. Mildred Pearce nitrogen [Mass/Vol]28.0 mg/dLCritically high7.0-18.0The [facility] HospitalComment on above:Performed By: #### CMP, T4, FT3, LIPID, TSH #### [facility] [address] [place] [address] Dr. Mildred Pearce nitrogen/Creatinine [Mass ratio]26.9 mg/mgNoSamaritan HospitalComment on above:Performed By: #### CMP, T4, FT3, LIPID, TSH #### [facility] [address] [place] [address] Dr. Mildred ÁlvarezT4on 83-55-5844M7 [Mass/Vol]5.10 ug/dLNormal4.80-13.90The [facility] HospitalComment on above:Performed By: #### CMP, T4, FT3, LIPID, TSH #### [facility] [address] [place] [address] Dr. Mildred Kline 24-42-3913HAU9.641 uIU/mLNormal0.358-3.740[facility] HospitalComment on above:Performed By: #### CMP, T4, FT3, LIPID, TSH #### [facility] [address] [place] [address] Dr. Mildred ÁlvarezVITAMIN D 25 OHon 57-71-5330ILE D 25-OH45.3 ng/mLNormalThe [facility] HospitalComment on above:Performed By: #### VITAD ####[facility] [address] [place], [place] [address]Dr. Mildred ChinchillaT D RANGES SEE BELOWNoSamaritan HospitalComment on above:Result Comment: <20 ng/mL Vit D deficient 20 - <30 ng/mL Vit D insufficient 30 - 100 ng/mL Vit D sufficient >100 ng/mL Potential ToxicityPerformed By: #### VITAD ####[facility] [address] [place], [place] [address]Xr. Yilan ChangMG MAMM SCREEN 3D MIGUEL CADon 83-55-9021UE MAMM SCREEN 3D MIGUEL CADPatient: RACHEL OROZCO Exam Date: 06/20/2022 : 1945 Gender:F Ordering : DR BEN MATHUR . Admission #: [id number] Family : Order #: [id number] CLICK HERE TO VIEW EXAM RADIOLOGY REPORT [...] ovarian cancer at age 41. LOCATION: [facility] BREAST COMPOSITION: Scattered areas fibroglandular density. [...] PALPABLE LUMP SHOULD BE BIOPSIED. Dictated by: Viral Sunshine M.D. on 06/20/2022 at 12:15 Approved by: Viral Sunshine M.D. on 06/20/2022 at 12:49[facility] Vital Signs Date TimeVital SignValuePerforming QggxojoyoNytpllpm19-18-6976 08:51-0400Body yvzcsk089 cmSteven Tonya [place] Work Phone: [facility] CenterBofasmohpc64-40-8857 08:51-0400Body mass index (BMI) [Ratio]25.69 kg/a5Afefgzperry Castaneda DPM Work Phone: [facility] CenterHwvgrvscsp24-80-9027 08:510400Body zbaqhh28.77 kgSteven Rusher DPM Work Phone: [facility] CenterIjuxctxdiy21-26-4572 13:05-0400Body anyoqt8[address] DO Work Phone: [facility]04-29-2025 13:05-0400Body mass index (BMI) [Ratio]26.11 kg/p6Nsueyjenni Lane DO Work Phone: [facility]04-29-2025 13:05-0400Body ehkyid37.[address] DO Work Phone: [facility]04-29-2025 13:05-0400Diastolic blood nsidfdqt67 mm[Hg]Ta Lane DO Work Phone: [facility]04-29-2025 13:05-0400Systolic blood liezitsb51 mm[Hg]Ta Lane DO Work Phone: [facility]04-15-2025 09:06-0400Body iibfdi729 cmMattjohn Coley PA Work Phone: [facility] CenterSnqzpsiche57-49-9288 09:06-0400Body mass index (BMI) [Ratio]25.69 kg/y0Ieqxrnxxavier Coley PA Work Phone: [facility] CenterEvyifixaqa43-04-8970 09:06-0400Body .77 kgMattallsherly Coley PA Work Phone: [facility] CenterVthkponfxo86-43-3568 12:27-0400Diastolic blood thvehhpz85 mm[Hg]Price Dejesus 606-7313Smohat-DpttdSelect [facility]04-03-2024 12:27-0400Mean blood ixjvwsig74 mm[Hg]Price Dejesus 723-5370Cugsar-CihkrSelect [facility]04-03-2024 12:27-0400Systolic blood pdudcljf262 mm[Hg]Price Dejesus 173-2141Bvirkg-ShbnhSelect [facility]04-03-2024 12:16-0400Blood Pressure LocationMohamad Mouchli [phone]-IvckdSelect [facility]04-03-2024 12:16-0400Diastolic blood cymkqaqh95 mm[Hg]Mohamad Mouchli 706-4625Lcmhwk-XgujjSelect [facility]04-03-2024 12:16-0400Heart rate74 /minMohamad Mouchli 031-4500Ncrshc-Amywb[address] [place], [place] [address]3904-03-2024 12:16-0400Systolic blood gvhetafq16 mm[Hg]Mohamad Mouchli 116-3956Pxdhou-Wkxbn[address] [place], [place] [address]3903-20-2024 10:52-0400Diastolic blood wmhiefms01 mm[Hg]Mohamad Mouchli [address] [place], [place] 3025603-20-2024 10:52-0400Heart rate59 /minMohamad Mouchli [address] [place], [place] 3025603-20-2024 10:52-0400 Respiratory rate37 /minMohamad Mouchli [facility]03-20-2024 10:52-6607KrH1% (BldA) [Mass fraction]100 %Mohamad Mouchli [facility]03-20-2024 10:52-0400 Systolic blood aqhfrkrr88 mm[Hg]Mohamad Mouchli [facility]03-20-2024 10:40-0400 Diastolic blood aoefhlhy75 mm[Hg]Mohamad Mouchli [facility]03-20-2024 10:40-0400Heart rate62 /minMohamad Mouchli [facility]03-20-2024 10:40-0400 Respiratory rate20 /minMohamad Mouchli [facility]03-20-2024 10:40-6425RpY1% (BldA) [Mass fraction]100 %Mohamad Mouchli [facility]03-20-2024 10:40-0400 Systolic blood oomnbowm863 mm[Hg]Mohamad Mouchli [facility]03-20-2024 10:35-0400 Diastolic blood suqzrkgx07 mm[Hg]Mohamad Mouchli [address] [place], [place] 3025603-20-2024 10:35-0400Heart rate74 /minMohamad Mouchli [address] [place], [place] 3025603-20-2024 10:35-0400 Respiratory rate21 /minMohamad Mouchli [address] [place], [place] 3025603-20-2024 10:35-8823HmX9% (BldA) [Mass fraction]96 %Mohamad Mouchli [address] [place], [place] 3025603-20-2024 10:35-0400 Systolic blood yrzbetwh773 mm[Hg]Mohamad Mouchli [address] [place], [place] 3025603-20-2024 10:27-0400Body gguezhudqck69.98 [degF]Mohamad Mouchli [address] [place], [place] 3025603-20-2024 10:25-0400 Respiratory rate14 /minMohamad Mouchli [address] [place], [place] 3025603-20-2024 10:20-0400 Respiratory rate14 /minMohamad Mouchli [address] [place], [place] 3025603-20-2024 10:15-0400 Respiratory rate14 /minMohamad Mouchli [address] [place], [place] 3025603-20-2024 08:23-0400Blood Pressure LocationMojuan luis Dejesus [facility]03-20-2024 08:23-0400Body qpbmcfsendq19.52 [degF]Price Lopezli [facility]03-13-2024 11:55-0400Blood Pressure LocationMojuan luis Lopezli 864-9003Qnrkkm-SlqoiSelect [facility]03-13-2024 11:55-0400Body iilbewjwjpy17.16 [degF]Ruthd Jessicali [phone]-XawawSelect Medical Specialty Hospital - [facility]03-13-2024 11:55-0400Diastolic blood edbtsiwn15 mm[Hg]Price Lopezli [phone]-Tcbvg[address] [place], [place] [address]03-13-2024 11:55-0400Heart rate76 /minPrice Dejesus [phone]-NpzgiSelect Medical Specialty [facility]03-13-2024 11:55-0400Systolic blood rdsetqki527 mm[Hg]Price Damicoacmc healthcare systembrianda [phone]-BqzyeThe [facility] Encounters Encounter DateEncounter TypeCare ProviderFacilityStart: 09-04-2025 End: 11-54-7299niodohyupqJAGIOJIHighland District Hospitaltart: 08-19-2025 End: 37-34-2071Hicotb flowsheetJr. Fernie Ballard DO Work Phone: noMS [facility]Start: 08-19-2025 End: 74-71-9241Wpgiql flowsheetJr. Fernie Nelsonanic DO Work Phone: NOZI [facility]opaedicsStart: 08-19-2025 End: 12-72-0716Rnxhzj outpatient visit 25 minutesJr. Fernie Ballard DO Work Phone: NOMS [facility] OrthopaedicsComment on above:Carpal tunnel syndrome of right wrist (Primary Dx); Arthritis of carpometacarpal (CMC) joint of left thumb; Trigger index finger of right handStart: 08-19-2025 End: 20-85-9775spzieulrbkFSFERNIE Dawn AvailableStart: 08-15-2025 End: 27-72-6961Ccybym flowsheetSteven A Rusher DPM Work Phone: NOImmanuel Medical Centert PodiatryStart: 08-15-2025 End: 60-52-4406Qqyafi flowsheetSteven A Rusher DPM Work Phone: NO[facility] PodiatryStart: 08-15-2025 End: 82-81-5716Xevwri outpatient new 30 minutesSteven A Rusher DPM Work Phone: NO[facility] PodiatryComment on above:Plantar wart, left foot (Primary Dx); Acquired keratoderma; Pain in toe of left foot; Difficulty walkingStart: 08-15-2025 End: 75-54-9149mzvhzsazfsPBWPVW A RUSHERNot AvailableStart: 07-29-2025 End: 54-62-8091Bbowjez encounter procedureSmitha Redding MD Work Phone: NOSouth [facility] NeurologyComment on above: Numbness (Primary Dx); Paresthesias; Pain in both upper extremities; Carpal tunnel syndrome, bilateralStart: 07-29-2025 End: 01-92-1960ggcyudziosRFLW D BEJNot AvailableStart: 07-23-2025 End: 43-84-1478Xefqyomsu encounterMaria Dora [facility] 111Start: 07-22-2025 End: 05-02-4029Qtpozx Clifford PENDLETON Work Phone: NO [facility]icsStart: 07-22-2025 End: 61-89-4619Nbnwej Clifford PENDLETON Work Phone: NOMS [facility]opaedicsStart: 07-22-2025 End: 14-87-4076fgoxrarhrzCCIKLCD J MEYERNot AvailableStart: 07-22-2025 End: 71-06-6464Nuxhqq outpatient visit 25 minutesMaxavier PENDLETON Work Phone: NOTN [facility]opaedicsComment on above:Right hand pain (Primary Dx); Carpal tunnel syndrome of right wrist; Arm weakness; Numbness; Arm pain, right; Trigger index finger of right hand; Dupuytren's contractureStart: 03-20-2025 End: 61-59-5125Kmxrer Mathew Vaughan ECHO VASCULAR TECHNOLOGIST Work Phone: NOHD [facility] ORTHOPAEDICSStart: 03-20-2025 End: 01-08-1312Rdopvr Mathew Vaughan ECHO VASCULAR TECHNOLOGIST Work Phone: NORX FB ORTHOPAEDICSStart: 03-20-2025 End: 98-79-1109Nuofpm follow up visit related to original Gabriele Vaughan NP Work Phone: NOYR FB ORTHOPAEDICSComment on above:Status post trigger finger release (Primary Dx)Start: 03-20-2025 End: 71-09-4218yjnpotxwofXNXNE T OLSENNot AvailableStart: 03-05-2025 End: 79-83-0577MpbjosMycjn T Olsen NP Work Phone: NOZZ FB ORTHOPAEDICSComment on above:Trigger middle finger of right hand (Primary Dx); Trigger ring finger of right handStart: 03-04-2025 End: 25-70-2504Cxvqzn pelvic examinationTa Lane DO Work Phone: [facility] Work Phone: Start: 03-04-2025 End: 95-00-6503Eqyliug encounter procedureTa Lane DO Work Phone: [facility] Obstetrics/GynecologyComment on above:Encounter for breast and pelvic examination (Primary Dx); Atrophic vaginitis; Family history of breast cancer in femaleStart: 03-04-2025 End: 35-26-2672jtffajwofdUYVFU L [facility] Ambulatory PPGStart: 71-21-0855Kkacgxsaz for gynecological examination (general) (routine) without abnormal findingsTEODORAJENNI Lyndsey [facility] Ambulatory PPGStart: 02-18-2025 End: 47-41-0169Leglpc flowsheetJose PENDLETON Work Phone: noms [facility] ORTHOPAEDICSStart: 02-18-2025 End: 44-28-1245Wxndbq flowsheetJose PENDLETON Work Phone: noms [facility] ORTHOPAEDICSStart: 02-18-2025 End: 85-49-0673Pqlksajy Result EncounterMaxavier PENDLETON Work Phone: NOAN External Department UnsolicitedStart: 02-18-2025 End: 46-07-0024drbtsistmaSIDYYBN J MEYERMercy Health Clermont Hospitaltart: 20-90-3020Ccpnpeqlb for other preprocedural examinationMASumma Health Akron Campustart: 02-18-2025 End: 92-10-2692Jjuztva encounter procedureMaxavier PENDLETON Work Phone: noms FB ORTHOPAEDICSComment on above:Pre-op examination (Primary Dx)Start: 02-18-2025 End: 57-51-9012Awaaammworzqv examination doneMaxavier PENDLETON Work Phone: [facility] Work Phone: Start: 02-18-2025 End: 12-64-8461opkknkowdmWPZNNVS J MEYERNot AvailableStart: 02-10-2025 End: 91-33-7858Uvhldk OnlyJose PENDLETON Work Phone: [phone]-JQRQ ATLASComment on above:Encounter for other preprocedural examinationStart: 02-10-2025 End: 26-28-2715Caqhpth encounter statusMaxavier PENDLETON Work Phone: [facility] SystemStart: 01-07-2025 End: 40-35-3902Oconmq flowsJohnnie PENDLETON Work Phone: noms FB ORTHOPAEDICSStart: 01-07-2025 End: 82-61-7373Qpogkz reganJose PENDLETON Work Phone: noms FB ORTHOPAEDICSStart: 01-07-2025 End: 69-67-7500ipipcjwmnnHSKDWOL J MEYERNot AvailableStart: 01-07-2025 End: 11-36-6793Eutuht outpatient visit 40 minutesMattjohn Louie Brijesh PENDLETON Work Phone: noms FB ORTHOPAEDICSComment on above:Right hand pain (Primary Dx); Trigger middle finger of right hand; Trigger ring finger of right hand; Arthritis of carpometacarpal (CMC) joint of left thumbStart: 12-27-2024 End: 62-53-8631qgkxmtdhxnEIDFHolzer Health Systemtart: 02-07-2024 End: 25-17-0982jsowaggxqpWudnzye A. MouchliFacility:[facility] DHStart: 02-07-2024 End: 52-45-3291Mrguowf encounter procedureMohamad A. Mouchli [phone]-PnmfuNorwalk Memorial Hospital Health Start: 01-24-2024 End: 91-89-8080vmlupdbmvuYabrelr A. MouchliFacility:MCStart: 01-24-2024 End: 03-70-3527Cycmcxt encounter procedureMohamad A. Mouchli [facility] Start: 01-17-2024 End: 39-34-3253gijnwzprwgEveyclh A. MouchliFacility:[facility] DHStart: 01-17-2024 End: 66-95-6532Ydoykbs encounter procedureMohamad A. Mouchli 588-8526Bvmnof-ZgdwqThe [facility] Hospital [facility] Start: 35-54-4120zaflvghdzgQmfauke Mouchli Facility:Rafaela DHStart: 96-80-1574doiizmangyQjsldtv HoyFacility:FAY OrdazevueStart: 86-61-3213jdvfcyqfouExhmnut MouchliFacility: BellevueStart: 10-26-2022 End: 86-50-4396plzgfuafbzOV BEN HOYFacility:Y8Pmkle: 09-12-2022 End: 92-04-0668nzszmtmeniGY BEN HOYFacility:P5Zijok: 09-09-2022 End: 86-37-2986vcsidfhdzbZQ BEN HOYFacility:F7Mgxpm: 06-20-2022 End: 94-16-1196qttuoqzcfsWJ BEN HOYFacility:Q4Xmnzz: 06-12-2019 End: 70-92-9357Bbzixuglw department patient visitDAVID F BAEHRENFacility:[facility] Procedures DateProcedureProcedure DetailPerforming ClinicianStart: 39-06-6449HINJ / SPLINT / FXJose PENDLETON Work Phone: Start: 33-65-2327Rzqwp depression screening assessment Ta Lane DO Work Phone: Start: 19-32-4967Velavgln blood count with white cell differential, automatedJose PENDLETON Work Phone: Start: 87-10-8507Rmuqvz-up visitLutheran [facility] COR[facility] Start: 36-13-6784GednjywpaibGqyqhtp Mouchli Start: 23-71-9548GrpujgvwoxdxwgzohxhjobzsbpDpmlpbl Mouchli Start: 80-44-3608NjklnjdrdmjFhyyrdg Mouchli Start: 43-91-7949UjuhuoxsslgKhagzop Mouchli Arthroplasty of right shoulderMohamad Mouchli Cardiac catheterizationMohamad Mouchli H/O: surgeryStatus post trigger finger releaseSamit Mauri Vaughan NP Work Phone: HysterectomyMohamad Mouchli Ligation of fallopian tubeMohamad Mouchli Repair of joint of right kneeMohamad Mouchli Plan of Treatment DateCare ActivityDetailAuthorStart: 43-88-5778Imyhrafumu ScreeningDepression ScreeningProTrihealthca Health SystemStart: 12-33-3735Rffusqv ScreeningTobacco ScreeningProCommunity Memorial Hospital SystemStart: 11-27-2025 End: 10-98-6794Rcmsnvd encounter qtejkdaej14/22/2026 1:30 PM EST Office Visit [facility] [address] [place] [phone] Viral Castaneda DPM [address] [place], [place] [address] [facility]iatryStart: 09-30-2025 End: 37-23-9590Tkesigq encounter xyvxydfcs57/25/2025 10:30 AM EST Office Visit [facility] [address] [place] [phone] Jr. Fernie Ballard C, DO [address] [address] [facility]opaedicsStart: 08-19-2025 End: 30-89-2068Vsnyuoq encounter procedureNOMS [facility] OrthopaedicsComment on above:ArrivedStart: 08-15-2025 End: 92-66-0009Kbwpqwa encounter vhzfzruez12/10/2025 9:00 AM EDT Office Visit [facility] [address] [place] [phone] Viral Castaneda DPM [address] [place] [address] ArrivedNOGreat Plains [facility] Center PodiatryComment on above:ArrivedStart: 07-29-2025 End: 31-39-9922Hpcpdik encounter dyupxbhxg04/23/2025 6:00 PM EDT Procedure Visit [facility] [address] [facility] [address] [place] [address] Smitha Redding MD [address] [facility] [address] [place], [place] [phone] (Work) NOMZaina [facility]rology Start: 07-23-2025 End: 96-51-3114IMQ AND NERVE CONDUCTION STUDYEMG AND NERVE CONDUCTION STUDY Neurology Routine Arm weakness Numbness Arm pain, right Expected: 07/23/2025 (Approximate), Expires: 07/22/2026[facility] Work Phone: Comment on above:Expected: 07/23/2025 (Approximate), Expires: 07/22/2026Start: 61-70-3365Humfynrfe vaccinationNOID HealthcareStart: 97-13-6218YTGLA-19 Vaccine ( season)COVID-19 Vaccine ( season)[facility] SystemStart: 04-03-2025 End: 94-49-3266Arjrxmf encounter tqvbqdbqe41/29/2025 3:15 PM EDT Office Visit [facility] [address] [place] [address] Royer Vaughan, ECHO VASCULAR TECHNOLOGIST [address] [place] [address] [facility]OPAEDICSStart: 03-20-2025 End: 07-33-2892Pdgwqbt encounter procedureNOMS ORTHOPAEDICSComment on above: ArrivedStart: 03-04-2025 End: 19-82-9449Qrpzejv encounter hxrxfxndu36/29/2025 1:00 PM EDT Office Visit [facility] [address] [place] [phone] DO [address] [place] [address] [facility]/GynecologyStart: 02-18-2025 End: 62-89-7007Wzujwlo encounter procedureNOMS FB ORTHOPAEDICSComment on above: Pre-op examination (Primary Dx)Start: 02-10-2025 End: 07-79-3063Obdpx metabolic 2000 panel - Serum or PlasmaBasic Metabolic Panel Lab Routine Encounter for other preprocedural examination Expected: 02/10/2025, Expires: 02/10/2026[facility] Work Phone: Comment on above:Expected: 02/10/2025, Expires: 02/10/2026Start: 62-12-6133KVOPI-19 Vaccine ( season)COVID-19 Vaccine ( season)[facility] Hospitaltart: 39-35-7991Rzyaswzzi vaccinationMineral Area Regional Medical CenterStart: 28-67-2589Phxoawf ScreeningTobacco Screening [facility] Hospitaltart: 40-16-8690Qtve Risk ScreeningFall Risk Screening [facility] Hospitaltart: 02-58-9060Evtfguylwrcqvu of varicella zoster vaccineZoster (Shingles) Vaccine (1 of 2)[facility]Keeper SystemStart: 69-66-7360PQiP,Tdap and Td Vaccines (1 - Tdap)DTaP,Tdap and Td Vaccines (1 - Tdap)[facility] Med[facility]Keeper SystemStart: 78-82-2466Ltoznxgbvk ScreeningDepression ScreeningMercy Health Kings Mills HospitalCBC W Auto Differential panel - BloodCBC auto differential Lab Routine 02/18/2025 9:56 AM EDBaptist [facility] Hospital Work Phone: Immunizations Immunization DateImmunizationNotesCare FittzbslYxmctnct31-73-3661mqplwsbag virus vaccine, unspecified formulationMaxavier PENDLETON Work Phone: [facility] Medical CenterRoxzudloyl87-36-7602pqyohrcqx virus vaccine, unspecified formulationMohamad Mouchli General Surgery Bdgvntwp93-21-9743RQEF-FqP-9 (COVID-19) mRNAMUL.ORD!l51844Ksduzhh Mouchli General Surgery Dguvjxlc27-44-1291nywhtwqkn virus vaccine, unspecified formulationJose PENDLETON Work Phone: [facility] HospitalAyyvgo22-86-2897FOBH-SuG-0 mRNA (frvimhxired-rpux-axxmbie) vaccineMohamad Mouchli General Surgery Ogtodxip87-25-7595VQJW-OoS-6 (COVID-19) mRNA BNT-162b2 vaxMohamad Mouchli General Surgery Sajnusym42-79-4366ENGG-ZhZ-5 (COVID-19) mRNA BNT-162b2 vaxMohamad Mouchli General Surgery BellevueComment on above:Result Comment: 2023-12-18: XZQ2168-71-0292RRKH-MqO-8 (COVID-19) mRNA BNT-162b2 vax Mohamad Mouchli General Surgery BellevueComment on above:Result Comment: 2023-12-18: [id number] Payers DatePayer CategoryPayerPolicy [id number] Health InsuranceRP [id number] Care Other (unspecified)[facility] on file Bigngjk: [address] [place] [address] [id number] 2011Medicare [id number] [id number] [id number] 2.0.1.618226.3.57[id number] 2.0.1.189410.3.57[id number] 2.0.1.261136.3.57[id number] 2.0.1.381292.3.57[id number] 2.0.1.666938.3.57[id number] 2.0.1.378199.3.57[id number] 2.840.1.962087.3.57[id number] 2.0.1.074850.3.57[id number] 2.16.840.1.562148.3.57[id number] 2.16.840.1.733094.3.57[id number] 2.16.840.1.241471.3.57[id number] 2.16.840.1.655774.3.57[id number] 2.16.840.1.498272.3.57[id number] 2.16.840.1.881503.3.57[id number] 2.16.840.1.066585.3.57[id number] 2.16.840.1.781487.3.57[id number] 2.16.840.1.385433.3.57[id number] 2.16.840.1.361947.3.57[id number] 2.16.840.1.415[id number] Social History DateTypeDetailFacilityStart: 01-17-2024 End: 42-79-9649Dosucij smoking statusEx-smoker (finding)[facility] Digestive HealthStart: 74-88-2439Gdrfrgu smoking statusNeverThe [facility] Hospital Digestive HealthStart: 05-29-2024 End: 49-44-5142Qfq Assigned At BirthFemalPomerene Hospital End: 23-75-8124Rowwqfi of tobacco useCurrent smokerCEDAR CITY HOSPITAL Healthcare End: 53-38-1178Mmovkkr of tobacco useCigarette SmokerCEDAR CITY HOSPITAL HealthcareStart: 01-03-2024 End: 91-54-7145Gpwgovi use and exposureSmokeless tobacco non-userCEDAR CITY HOSPITAL Healthcare Start: 05-29-2024 End: 49-67-6187Kjshwjahe beverage intakeCurrent drinker of alcohol (finding)[facility] HealthcareStart: 05-29-2024 End: 19-27-2937Vjsxiuw of Social functionMercy Health Kings Mills Hospital Work Phone: Start: 93-85-6493Hkudxmp Comment1-2 drinks 2-3 times a weekMineral Area Regional Medical CenterStart: 83-23-0632Fhk assigned at birthNot on fileCEDAR CITY HOSPITAL HealthcareStart: 33-40-1411Hantrro CommentsocialFormerly Southeastern Regional Medical Centertart: 19-76-2077CtvEsjvzp (finding)Formerly [facility] Medical Centertart: 02-64-2506Dzinfqh CommentdaHenrico Doctors' Hospital[facility] Functional Status KhuuLdawcokxhtMclzxhMqfmndtx13-35-9554Bofbazbpsf StatusN/[facility] Digestive Vqadbs87-90-5457Tlamamfgmv StatusN/[facility]03-13-2024Functional StatusN/[facility] Clinical Notes 12-25-2023 to 09-04-2025 Note Date & ZdzgHibhNebpykom56-44-0456 NoteCardiovascular Medicine [facility] SUBJECTIVE Chief Complaint Patient presents with Follow-up Patient is here today for a 6 month follow up appointment. Patient states she is feels like she is catching a cold.Patient seen otho for hand pain, she was prescribed Celebrex, patient hasn't started it due to wanting to make sure its [...] is an 78 y.o. female admitted from [facility] where she presented with several days history of progressive shortness of breath retrosternal chest discomfort described by her as dull ache at times burning nonradiating associated for dyspnea Patient was recently discharged from [facility] after being admitted for RSV pneumonia since that time she has been having shortness of breath which gets worse with activity she denies any fever chills sinus trouble sore throat she denies any dizziness lightheadedness she feels tired she has history of atrial fibrillation and has been on Eliquis and metoprolol she denies any cardioversion in the past at [facility] she had 2 sets of troponin [...] trigger finger Carpal tunnel syndrome of right wri (more content not included)...[facility]10-14-2025 History of Present illness Narrative* Jr. Fernie Ballard, - 08/19/2025 9:30 AM EDT Images from the original note were not included. HISTORY OF PRESENT ILLNESS: EST PT Rachel Orozco is an 80 y.o. @ female. EST PT; MOST RECENT VISIT WITH [facility]- RECHECK RT HAND N/T - HERE FOR EMG RESULTS 07/29/25 DR REDDING (UNDER 07/29/25 ENCOUNTER)- EMG B/L UE 07/29/25 DR REDDING (UNDER 07/29/25 ENCOUNTER) WRIST SPLINT DIFFICULTY HOLDING PHONE/IPAD/BOOK- SYMPTOMS MUCH WORSE HS BUT BRACE IS HELPING- +WEAKNESS- DIFFICULTY OPENING JARS/BOTTLED WATER- +VOLTAREN GEL/TYLNOL. USING WRIST SPLINT WITH RELIEF. OCCAS TRIGGERING OF RT IF. HX RT MF/RF TRIGGER RELEASE 03/06/25 -DR BALLARD *LT THUMB* (CHIEF COMPLAINT TODAY) ONSET PAIN X 3-4 YEARS. CONSTANT PAIN AT THE BASE OF THE THUMB. DIFFICULTY GRIPPING. USES VOLTAREN GEL AND VICKS CREAM. + TYLENOL. NO BRACE. LAST INJECTION 03/06/25 HAS WORN OFF. XRAY EPIC 01/22/24 [facility] DEPO INJECTION 01/22/24, 03/06/25 NO PT/OT NO PREDNISONE ALLERGIES: No Known Allergies HOME MEDICATIONS: Current Outpatient Medications Medication Instructions aspirin 81 mg, Daily atorvastatin (LIPITOR) 40 mg, Nightly biotin 29558 MCG tablet Take by mouth celecoxib (CELEBREX) 200 mg, Oral, Daily, Take with food dapagliflozin (FARXIGA) 10 mg, Daily RT Eliquis 5 MG tablet 1 tablet, 2 times daily fenofibrate micronized (Lofibra) 134 MG capsule ferrous sulfate 325 (65 Fe) MG tablet Every 24 hours furosemide (Lasix) 40 MG tablet 1 tablet, Every morning iron polysaccharides (NU-IRON,NIFEREX) 150 mg, Oral, Daily levothyroxine (Synthroid, Levoxyl) 88 MCG tablet 1 tablet, Daily liothyronine (Cytomel) 25 MCG tablet loratadine (Claritin) 10 MG tablet Take by mouth metoprolol succinate XL (Toprol-XL) 25 MG 24 hr tablet omega-3 (fish oil) 600 MG capsule 1 capsule, Every 24 hours oxybutynin XL (Ditropan-XL) 10 MG 24 hr tablet pantoprazole (PROTONIX) 40 mg, Nightly potassium chloride CR (Klor-Con M10) 10 MEQ ER tablet 2 tablets, 2 times daily PHYSICAL EXAM: Hand/Wrist Musculoskeletal Exam Inspection Right Erythema: none Ecchymosis: none Edema: none Deformity: mild Inspection additional comments: MILD THENAR ATROPHY Palpation Right Right hand palpation is normal. Triggering: index Triggering comment: Triggering has resolved. Wrist tenderness to palpation: carpal canal Palpation additional comments: DENIES PAIN TO PALPATION OF HAND/ WRIST JOINT Range of Motion Right Hand Right hand range of motion is normal. Range of motion additional comments: ABLE TO MAKE FULL FIST Strength Right Hand Right hand strength is normal. 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 Radial pulse: normal and 2+ Capillary refill: <3 sec Ulnar nerve sensory distribution: normal Median nerve sensory distribution: decreased Superficial radial nerve sensory distribution: normal Special Tests Right Phalen's: positive Tinel's - carpal tunnel: positive General Constitutional: appears stated age Labored breathing: no Neurological: alert and oriented x3 Skin: intact Lymphadenopathy: none Vitals: There is no height or weight on file to calculate BMI. Tobacco Use: Medium Risk (08/15/2025) Patient History Smoking Tobacco Use: Former Smokeless Tobacco Use: Never Passive Exposure: Not on file Alcohol Use: Not on file IMAGING: Procedures No orders of the defined types were placed in this encounter. ASSESSMENT: ICD-10-CM 1. Carpal tunnel syndrome of right wrist G56.01 2. Arthritis of carpometacarpal (CMC) joint of left thumb M18.12 celecoxib (CeleBREX) 200 MG capsule 3. Trigger index finger of right hand M65.321 PLAN: We have discussed her symptoms, physical exam, and response to night splinting. She is doing very well with her night splinting and pleased with her progress and continues to improve. She has no evidence of triggering to the right index finger today in the office. She has moderate carpal tunnel on her EMG. We recommended Celebrex 200 mg 1 by mouth daily dispense #30. She understands the risks andbenefits of taking nonsteroidal anti-inflammatories and to not take any other nonsteroidal anti-inflammatories while she's taking Celebrex. We'll see her back in 1 month To reevaluate her right carpal tunnel and right index finger trigger finger. and we have recommended a CMC arthritis brace for her left hand at her request. #1 if her symptoms persist or worsen to her right index finger and carpal tunnel we may recommend surgical intervention #2 if her left thumb continues to be painful we may re-x-ray her left thumb CMC. Questions answered in laymen terms at the bedside. The diagnosis, home exercise plan and any ongoing restrictions/ recommendations reviewed. If unable to be reached in office, I recommend evaluation at nearest Emergency Room if any symptoms worsened or new symptoms develop for requiring urgent evaluation. documented in this encounterMineral Area Regional Medical CenterGrsomllagc41-88-1779 History of Present illness Narrative* Viral Castaneda, DPM - 08/15/2025 9:00 AM EDT Images from the original note were not included. Subjective Patient ID: Rachel Orozco is a 80 y.o. female who presents for Diabetic ulcer (Rachel Orozco 80yo New Patient presents with a Left foot 5th toe pain. Patient thinks it is an ulcer, denies drainage. Typically uses a foot bath 1x weekly, and files with a pedi egg. BS [address] Mathur 05/28/2025. SS8.5). HPI Initial patient encounter and assessment. Chief complaint: Describes a sore 5th digit left foot. Progressively symptomatic over the past several weeks or so; impacting ADLs, walking activity and ability to wear footwear comfortably. Typically wears CytoPherx slip-on footwear; recently purchased several new pair. Denies injury or trauma. Patient is uncertain as to the duration of the lesion. Has recently noted localized redness, without swelling, bleeding or drainage. Denies streaking or constitutional symptoms. Self care measures are difficult and not practical; increasing risk exposure. There has otherwise been no specific treatment to date. First such lesion of this nature. Patient denies dysesthesias, numbness or tingling in her feet. Medications Current Outpatient Medications: aspirin 81 MG EC tablet, Take 81 mg by mouth Daily, Disp: , Rfl: atorvastatin (Lipitor) 80 MG tablet, Take 40 mg by mouth at bedtime, Disp: , Rfl: biotin 31637 MCG tablet, Take by mouth, Disp: , Rfl: dapagliflozin (Farxiga) 10 MG, 10 mg in the morning., Disp: , Rfl: Eliquis 5 MG tablet, Take 1 tablet by mouth in the morning and 1 tablet before bedtime., Disp: , Rfl: fenofibrate micronized (Lofibra) 134 MG capsule, , Disp: , Rfl: ferrous sulfate 325 (65 Fe) MG tablet, 1 (one) time each day at the same time (Patient not taking: Reported on 02/18/2025), Disp: , Rfl: furosemide (Lasix) 40 MG tablet, Take 1 tablet by mouth in the morning., Disp: , Rfl: iron polysaccharides (Nu-Iron,Niferex) 150 MG capsule, Take 150 mg by mouth Daily, Disp: , Rfl: levothyroxine (Synthroid, Levoxyl) 88 MCG tablet, Take 1 tablet by mouth Daily, Disp: , Rfl: liothyronine (Cytomel) 25 MCG tablet, , Disp: , Rfl: loratadine (Claritin) 10 MG tablet, Take by mouth, Disp: , Rfl: metoprolol succinate XL (Toprol-XL) 25 MG 24 hr tablet, , Disp: , Rfl: omega-3 (fish oil) 600 MG capsule, 1 capsule 1 (one) time each day at the same time, Disp: , Rfl: oxybutynin XL (Ditropan-XL) 10 MG 24 hr tablet, , Disp: , Rfl: pantoprazole (ProtoNix) 40 MG EC tablet, Take 40 mg by mouth at bedtime, Disp: , Rfl: potassium chloride CR (Klor-Con M10) 10 MEQ ER tablet, Take 2 tablets by mouth in the morning and 2tablets before bedtime., Disp: , Rfl: Allergies Patient has no known allergies. Past Surgical History Past Surgical History: Procedure Laterality Date BLADDER SUSPENSION HYSTERECTOMY Endometrial cystic hyperplasia Dr. Garrett KNEE SURGERY 04/11/2016 (R) uni knee - DR RAY MENISCECTOMY B/L knee arthroscopy menisectomy SHOULDER ARTHROSCOPY 07/06/2016 (R) SHOULDER SCOPE - DR RAY TRIGGER FINGER RELEASE Right 03/06/2025 ((Pt Qnr Sub: on file)) RT MF, RF TRIGGER RELEASE WITH DEPO INJECTION LT [facility] - Dr Ballard Family History Family History Problem Relation Name Age of Onset Cancer Mother Jimmy Fraire Heart disease Father Objective General assessment: Alert and oriented. Pleasant disposition. Wearing slip-on Skechers footwear. Vascular: DP 2/4 bilateral. PT 1/4 bilateral. CFT brisk all digits. Gradient temperature: Warm-warm bilateral. Unremarkable for ankle edema. Neurologic: Tactile and light touch sensation intact. 5.07 monofilament: Intact localization all sites. No focal sensory or motor deficits are noted. Dermatologic: Skin turgor is good. Mild, non-inflamed xerosis bilateral. Web space areas are clean, dry, non-inflamed. Unremarkable for eczema or dermatitis. Toenail pathology: Bilateral great toes: Mild yellow discoloration of the distal nail plate, without thickening, dystrophy or subungual debris. 5th digit left foot: Toenail dystrophy and clinical mycosis. There are no clinical signs of ulceration or open wound. Orthopedic: Range of motion: Functional ankle, subtalar and 1st MTP joint range of motion. Lesion pattern: Right foot: Slightly raised, non-inflamed keratotic lesion, located sub-sesamoid; non-tender, non-fluctuant. Left foot: Well-defined, raised, deeply nucleated PPD/verrucoid lesion located just lateral to the nail plate (Anil's lesion). Tender and locally inflamed; without foreign body or pigment. 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 Type II diabetes. Plan: Review of clinical findings, differential diagnosis of symptomatic lesion, etiology and contributing/aggravating factors, treatment strategy, rationale and objectives. 5th digit left foot: Debridement/enucleation and chemo cautery as described. Pressure relief padding 5-7 days. Patient noted favorable relief upon leaving the clinic. Appropriate stretching of footwear. Debridement of keratotic lesion right forefoot. Inlay modification for offloading measures. Diabetic education and assessment. Encourage emollient therapy daily. Discourage any barefoot walking. Follow up: 3-4 months recommended. Procedure: 5th digit left foot: Aseptic technique: # 15 scalpel: Sharp debridement and enucleation of symptomatic PPD/verrucoid lesion, encountering dermal bleeding. Phenol hemostasis/chemo cautery. Pressure relief padding. Well tolerated. This note was created with the assistance of a speech recognition program. While intending to generate a timely document that accurately reflects the content of the visit, no guarantee can be provided that every grammatical or spelling mistake has been or will be identified or corrected. Thank you for your understanding. Viral Castaneda DPM documented in this encounterMineral Area Regional Medical [id number] Instructions* Patient Instructions* Viral Castaneda DPM - 08/15/2025 9:00 AM EDT As noted documented in this encounterMineral Area Regional Medical [id number] History of Present illness Narrative* Smitha Redding MD - 07/29/2025 6:00 PM EDT [facility] Patient: Rachel Orozco [address], [address] , Sex: 1945, Female [place] [address] Height: 160 cm Ref Phys: Kevan Coley fax Electroneuromyogram (ENMG) Test Date: 2025-07-29 Patient Complaints: Pain, numbness B hands Nerve Conduction Studies Anti Sensory Summary Table Site NR Peak (ms) Norm Peak (ms) P-T* Amp ( V) Norm P-T Amp Site1 Site2 Delta-0 (ms) Dist (cm) Gabe (m/s) Norm Gabe (m/s) Left Median Anti Sensory (2nd Digit) Wrist 4.3 38.3 >4.59 Wrist 2nd Digit 3.5 17.0 49 >48.9 Right Median Anti Sensory (2nd Digit) multilobar Wrist 5.8 5.8 >4.59 Wrist 2nd Digit 4.3 18.0 42 >48.9 Left Radial Anti Sensory (Snuff Box) Wrist 2.3 48.3 >9.99 Wrist Snuff Box 1.8 12.0 67 >55.9 Right Radial Anti Sensory (Snuff Box) Wrist 2.6 11.9 >9.99 Wrist Snuff Box 1.9 12.0 63 >55.9 Left Ulnar Anti Sensory (5th Digit) Wrist 3.2 31.5 >3.69 Wrist 5th Digit 2.4 14.0 58 >45.9 Right Ulnar Anti Sensory (5th Digit) Wrist 3.7 34.5 >3.69 Wrist 5th Digit 3.0 15.0 50 >45.9 Ortho Sensory Summary Table Site NR Onset (ms) Peak (ms) Norm Peak (ms) P-T* Amp ( V) Norm P-T Amp Site1 Site2 Delta-0 (ms) Dist (cm) Gabe (m/s) Norm Gabe (m/s) Left Ulnar Ortho Ortho Sensory (Wrist) Dig V 1.3 1.9 55.4 Dig V Wrist 1.3 8.0 62 Right Ulnar Ortho Ortho Sensory (Wrist) Dig V 1.6 1.9 19.3 Dig V Wrist 1.6 8.0 50 Motor Summary Table Site NR Onset (ms) Norm Onset (ms) O-P* Amp (mV) Norm O-P Amp Neg Dur (ms) Site1 Site2 Delta-0 (ms)Dist (cm) Gabe (m/s) Norm Gabe (m/s) Left Median Motor (APB) dispersed, multilobar Wrist 3.8 <4.01 5.5 >4.99 7.19 Wrist APB 3.8 8.0 21 Elbow 6.7 4.7 >4.99 7.66 Elbow Wrist 2.9 16.0 55 >49.9 Right Median Motor (APB) Wrist 5.9 <4.01 6.7 >4.99 6.88 Wrist APB 5.9 8.0 14 Elbow 9.7 6.4 >4.99 6.41 Elbow Wrist 3.8 17.0 45 >49.9 Left Ulnar Motor (ADM) Wrist 2.8 <3.61 7.9 >4.99 4.69 Wrist ADM 2.8 8.0 29 B Elbow 5.2 6.7 >4.99 5.16 B Elbow Wrist 2.4 17.0 71 >46.9 A Elbow 6.9 7.8 >4.99 5.78 A Elbow B Elbow 1.7 8.0 47 >42.9 A Elbow Wrist 4.1 25.0 61 Right Ulnar Motor (ADM) Wrist 3.1 <3.61 8.0 >4.99 6.56 Wrist ADM 3.1 8.0 26 B Elbow 5.2 7.8 >4.99 6.41 B Elbow Wrist 2.1 14.5 69 >46.9 A Elbow 6.7 8.5 >4.99 6.56 A Elbow B Elbow 1.5 8.0 53 >42.9 A Elbow Wrist 3.6 22.5 63 Ortho Mixed Summary Table Site NR Onset (ms) Peak (ms) Norm Onset (ms) P-T Amp ( V) Norm P-T Amp Site1 Site2 Delta-0 (ms) Dist (cm) Gabe (m/s) Norm Gabe (m/s) Left Median Palmar Ortho Mixed (Wrist) Palm 1.8 2.3 <1.81 168.9 >0.0 Palm Wrist 1.8 8.0 44 >43.9 Right Median Palmar Ortho Mixed (Wrist) Palm 3.0 3.5 <1.81 27.2 >0.0 Palm Wrist 3.0 8.0 27 >43.9 EMG Side Muscle Nerve Root Ins Act Fib/ Pos Fasc Other Atrophy Amp Dur Poly Recr Pat Int Pat Comment Right Abd Poll Brev Median C8-T1 Incr 0 0 0 0 N 2+ 0 1- N Right Pron Teres Median C6-7 0 0 0 0 0 N N 0 N N Right Interos Ambrocio I Ulnar C8-T1 0 0 0 0 0 N N 0 N N Right Flex Carpi Uln Ulnar C8,T1 0 0 0 0 0 N N 0 N N Right Triceps Brach Radial C6-7-8 0 0 0 0 0 N N 0 N N Right Biceps Brach Musculocut C5-6 0 0 0 0 0 N N 0 N N Right Deltoid Axillary C5-6 0 0 0 0 0 N N 0 N N Left Abd Poll Brev Median C8-T1 0 0 0 0 0 N N 0 N N Left Pron Teres Median C6-7 0 0 0 0 0 N N 0 N N Left Interos Ambrocio I Ulnar C8-T1 0 0 0 0 0 N N 0 N N Left Flex Carpi Uln Ulnar C8,T1 0 0 0 0 0 N N 0 N N Left Triceps Brach Radial C6-7-8 0 0 0 0 0 N N 0 N N Left Biceps Brach Musculocut C5-6 0 0 0 0 0 N N 0 N N Left Deltoid Axillary C5-6 0 0 0 0 0 N N 0 N N Abbreviations: Atrop=atrophy; CRD=complex repetitive discharge; Discr=discrete; Doub=doublet; Fasc=fasciculation; FFE=full for effort; Fib=fibrillation; Myokym=myokymia; Dahlen=myotonic potential; N,0=normal; NR=no response; Polyph=polyphasia; Pos=positive [sharp] wave; RFU=rapidly firing units; Serr =serrated potential (2<phases<5); W&W=waxing and waning pattern INTERPRETATION: This study reveals ENMG evidence of chronic, neuropathic, axonal, sensorimotor processes affecting the median nerves at the wrists bilaterally, consistent with the clinical diagnosis of carpal tunnelsyndrome. These are of moderate degree on the R and mild degree on the L by electrical criteria. Nightly splint use was reinforced to the patient for prophylaxis. Should surgery be contemplated, afollow-up study 6 months afterward, limited to the median nerves, would be beneficial in establishing a new baseline. There is no suggestion by this study of more proximal lesions e.g. radiculopathy, nor of more widespread processes e.g. peripheral neuropathy or mononeuritis multiplex. The paraspinal muscles were not studied due to the patient's Factor Xa inhibitor anticoagulation, resulting in somewhat lower sensitivity of this study to the presence of any radiculopathy. Smitha Redding M.D. Diplomate, [place] [employer] and Neurology (neurology, epilepsy, sleep medicine) Diplomate, [place] Board of Clinical Neurophysiology Diplomate, [place] Board of Preventive Medicine (clinical informatics) . documented in this encounterMineral Area Regional Medical [id number] Telephone encounter Note* Telephone Encounter - Eduardo Hernandez - 07/28/2025 9:53 AM EDT RC and scheduled EMG on 07/29/25-- deductible has been met--2ndry will order picker/assembler 20% [facility] [id number] Miscellaneous Notes* Telephone Encounter - Eduardo Hernandez - 07/28/2025 9:53 AM EDT RC and scheduled EMG on 07/29/25-- deductible has been met--2ndry will order picker/assembler 20% * Telephone Encounter - Anastasiya Ortiz - 07/25/2025 2:58 PM EDT Called and left vm stating 's office was trying to get ahold of patient. I did leave 'sphone number for patient to call. * Telephone Encounter - Jessica Redding - 07/23/2025 7:39 PM EDT EMG referred by KEERTHI Coley. Called twice to try to schedule patient, each time someone pickedup the phone then hung up. I sent a message to the referring office. documented in this encounterMineral Area Regional Medical [id number] Telephone encounter Note* Telephone Encounter - Anastasiya Ortiz - 07/25/2025 2:58 PM EDT Called and left stating 's office was trying to get ahold of patient. I did leave 'sphone number for patient to call. [facility] [id number] Telephone encounter Note* Telephone Encounter - Jessica Redding - 07/23/2025 7:39 PM EDT EMG referred by KEERTHI Coley. Called twice to try to schedule patient, each time someone pickedup the phone then hung up. I sent a message to the referring office. [facility] [id number] History of Present illness Narrative* KEERTHI Pompa - 07/22/2025 9:30 AM EDTAssociated Order(s): Cast / Splint / Fx Post-Procedure Diagnose(s): Carpal tunnel syndrome of right wrist Images from the original note were not included. Orthopedic Office note: NAME: Rachel Orozco : 1945 EST PT WITH NEW C/O RT HAND N/T ~2WKS- NO INJURY S/P RT MF/RF TRIGGER RELEASE 03/06/25 (DEPO INJ LT [facility] ALSO GIVEN) NO TX DIFFICULTY HOLDING PHONE/IPAD/BOOD- SYMPTOMS MUCH WORSE HS- +WEAKNESS- DIFFICULTY OPENING JARS/BOTTLED WATER- +VOLTAREN GEL/TYELNOL Hand/Wrist Musculoskeletal Exam Inspection Right Erythema: none Ecchymosis: none Edema: none Deformity: mild Inspection additional comments: MILD THENAR ATROPHY, well healed scar a1 villa of middle and ring finger. Mild palmar fibrosis of fascia 3rd metacarpal ray palmar aspect. Palpation Right Right hand palpation is normal. Triggering: index Index tenderness to palpation: A1 villa Wrist tenderness to palpation: carpal canal Palpation additional comments: DENIES PAIN TO PALPATION OF HAND/ WRIST JOINT Range of Motion Right Hand Right hand range of motion is normal. Range of motion additional comments: ABLE TO MAKE FULL FIST Strength Right Hand Right hand strength is normal. 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 Radial pulse: normal and 2+ Capillary refill: <3 sec Ulnar nerve sensory distribution: normal Median nerve sensory distribution: decreased Superficial radial nerve sensory distribution: normal Special Tests Right Phalen's: positive Tinel's - carpal tunnel: positive General Constitutional: appears stated age Labored breathing: no Neurological: alert and oriented x3 Skin: intact Lymphadenopathy: none Orders Placed This Encounter Procedures Cast / Splint / Fx This order was created via procedure documentation EMG AND NERVE CONDUCTION STUDY Standing Status: Future Expected Date: 07/23/2025 Expiration Date: 07/22/2026 Scheduling Instructions: Schedule with Dr. Redding ( [facility] EMG resource). EMG RT UE WITH DR REDDING; PLEASE CALL PT TO SCHEDULE Cast / Splint / Fx Date/Time: 07/22/2025 10:16 AM Performed by: KEERTHI Pompa Authorized by: KEERTHI Pompa Consent given by: patient Injury Location details: right wrist Pre-procedure assessment Distal perfusion: normal Distal sensation: normal Range of motion: reduced Procedure Manipulation performed? no manipulation performed Immobilization: [...] and diagnosis. It was dispensed and fitted forthe patient, and it fit properly. The patient was educated as to proper use and care, and this was reviewed in detail. Written instructions and warranty information were given with the device. A receipt for the device is on file. The current supplier standards were given to the patient. [employer] patient agreement was completed at time of dispensement. The patient stated that the device was comfortable when fitted in the office. At the time of dispensement, the device was suitable and not substan dard. Results ICD-10-CM 1. Right hand pain M79.641 2. Carpal tunnel syndrome of right wrist G56.01 3. Arm weakness R29.898 EMG AND NERVE CONDUCTION STUDY 4. Numbness R20.0 EMG AND NERVE CONDUCTION STUDY 5. Arm pain, right M79.601 EMG AND NERVE CONDUCTION STUDY 6. Arm pain, left M79.602 EMG AND NERVE CONDUCTION STUDY F/U Dr. Ballard s/p EMG, night splint to discuss need for possible: Carpal tunnel release. Possible release a1 villa of index finger. Surgical and non surgical tx options discussed with conservative measures reviewed. Recommend ICE/ ELEVATION, continued activity modification in interim. Pt would consider surgical intervention to possibly improve symptoms. Assessment & Plan Right hand carpal tunnel syndrome There is a significant two-point discrimination deficit to the median nerve, also involving a little bit of the little finger. Diagnostic plan: An EMG has been recommended for further evaluation due to diffuse paresthesias andpain. Treatment plan: Activity modification was discussed. Night splinting with a brace fitted today willbe tried. Clinical decision making: Follow-up with the attending physician in 4 weeks to discuss the need forpossible surgical intervention, but the EMG test is pending in the interim. Given similar two-pointdiscrimination but no pain disruption noted in the left hand, the patient was thankful and had no further concerns or questions. Verbalized understanding of the use of the brace and compliance. Follow-up: 08/19/2025 Questions answered in laymen terms at the bedside. The diagnosis, home exercise plan and any ongoing restrictions/ recommendations reviewed. If unable to be reached in office, I recommend evaluation at nearest Emergency Room if any symptoms worsened or new symptoms develop for requiring urgent evaluation. Visit was preformed using [employer]-airplane [employer] commercial speech recognition. documented in this encounterMineral Area Regional Medical [id number] History of Present illness Narrative* Royer Vaughan NP - 03/20/2025 10:00 AM EDT Images from the original note were not included. HISTORY OF PRESENT ILLNESS: POST OP PT Rachel Orozco is an 79 y.o. @ female. 1ST PO S/P RT MF, RF TRIGGER RELEASE WITH DEPO INJECTION LT [facility] 03/06/25 (2 WKS) @ [facility]. DENIES PAIN UNLESS SHE MOVES IT QUICK OR TOO FAR. NO PAIN MEDS. USED ICE INITIALLY. DENIES N/T, SWELLING. DOES NOT WAKE AT HS. STATES SHE HAS BEEN KEEPING HER FINGERS BENT. UNABLE TO FULLY STRAIGHTENMF AND RF. DENIES DRAINAGE. STITCHES INTACT, REMOVED TODAY. INCISIONS HEALING WELL. REVIEW OF SYSTEMS: General: Denies fever, fatigue or weight loss Lungs: Denies SOB Cardio: Denies chest pain GI: Denies indigestion or abdominal pain Neuro: Denies numbness or tingling, denies new onset paralysis Musculoskeletal: ( see note) PHYSICAL EXAM: Right Hand Exam Right hand exam is normal. Tenderness The patient is experiencing tenderness in the palmar area (EXPECTED POST OPERATIVE SORENESS AT INICISION.). Range of Motion The patient has normal right wrist ROM. Muscle Strength The patient has normal right wrist strength (MOTORS HAND AND WRIST WITHIN LIMITS OF SURGERY). Other Erythema: absent Scars: present (WELL HEALING, SUTURES PRESENT, REMOVED) Sensation: normal Pulse: present Comments: Unable to fully extend ring finger. Was able to improve with PROM of finger but unable toget full extension due to pain. Physical Exam Results Procedures No orders of the defined types were placed in this encounter. ASSESSMENT: ICD-10-CM 1. Status post trigger finger release Z98.890 PLAN: Assessment & Plan Patient is 2 weeks s/p right middle and ring finger trigger finger release. I recommend that she work on gentle stretching of the fingers to get to full extension. She is to avoid any heavy gripping for 4 weeks. She will follow up in 3 weeks for Rck of ROM. She will call with any worsening symptoms. Questions answered in laymen terms at the bedside. The diagnosis, home exercise plan and any ongoing restrictions/ recommendations reviewed. If unable to be reached in office, I recommend evaluation at nearest Emergency Room if any symptoms worsened or new symptoms develop for requiring urgent evaluation. documented in this [facility]04-30-2025 Telephone encounter Note* Telephone Encounter - Royer Vaughan NP - 03/05/2025 4:05 PM EDT Post op pain rx. PDMP reviewed [facility] [id number] Miscellaneous Notes* Telephone Encounter - Royer Vaughan NP - 03/05/2025 4:05 PM EDT Post op pain rx. PDMP reviewed documented in this [facility]04-29-2025 History of Present illness Narrative* Ta Lane, - 03/04/2025 1:00 PM EDT Subjective Patient ID: Rachel Orozco is a very pleasant 79 y.o. female who presents today for her Medicare breast and pelvic exam. Patient did complete [employer] genetic cancer screening with her last well-woman visit which was negative. She has annual mammograms. She does perform breast self-exams. Patient did have a myocardial infarction in October of 2023. She has had a 40 lb weight loss since that time. She has had a full evaluation by her primary care provider including labs and colonoscopy toevaluate her weight loss, but everything has came back as negative. 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 She did have hysterectomy in her 30s for presumed endometrial cancer. She said this was an incidental finding when she presented to have a tubal ligation. She does have significant family history of malignancy including patient's mother, 2 sisters, and a niece who have had breast cancer.She has had a brother and a nephew with colon cancer. Chief Complaint: Medicare breast and pelvic exam Menstrual History: OB History 3 Para Term AB Living SAB IAB Ectopic Multiple Live Births No LMP recorded. Patient is postmenopausal. The following portions of the patient's history were reviewed and updated as appropriate: allergies, current medications, past family history, past medical history, past social history, past surgicalhistory, problem list, and medication reconciliation was completed including current medication andpost discharge medication. Review of Systems Constitutional: negative Respiratory: negative Cardiovascular: negative Gastrointestinal: negative Genitourinary:negative Integument/breast: negative Hematologic/lymphatic: negative Musculoskeletal:negative Neurological: negative Behavioral/Psych: negative Endocrine: negative Objective BP 98/66 Ht 160 cm (5' 3 ) Wt 66.9 kg (147 lb 6.4 oz) BMI 26.11 kg/m General: alert, appears stated age, and cooperative Heart: regular rate and rhythm, S1, S2 normal, no murmur, click, rub or gallop Lungs: clear to auscultation bilaterally Abdomen: soft, non-tender, without masses or organomegaly Vulva: normal Vagina: normal mucosa, no palpable nodules Cervix: absent Uterus: Surgically absent Adnexa: no mass, fullness, tenderness Breast: Symmetrical in appearance with no palpable nodules or visible lesions Assessment 1. Encounter for breast and pelvic examination 2. Atrophic vaginitis 3. Family history of breast cancer in female Plan 1. Breast self-exam encouraged mammogram ordered. 2. Patient to follow up in 2 years for her next Medicare breast and pelvic or sooner should problems or concerns arise documented in this encounterOhioHealth Doctors HospitalExecMobile [id number] History of Present illness Narrative* KEERTHI Pompa - 02/18/2025 9:00 AM EDT Images from the original note were not included. GENERAL HISTORY AND PHYSICAL: NAME: Rachel Orozco : 1945 HISTORY OF PRESENT ILLNESS: Rachel Orozco is an 79 y.o. @ female. Here for surgery instructions right middle and ring finger trigger release. With left thumb [facility] joint injection. PAST MEDICAL HISTORY: Past Medical History: Diagnosis Date Atrial fibrillation (CMS/HCC) 09/2019 Diabetes (CMS/HCC) Endometrial cystic hyperplasia Hyperlipidemia (CMS/HCC) Hypertension (CMS/HCC) Hypothyroid (CMS/HCC) Osteoarthritis Pneumonia 09/2018 PAST SURGICAL HISTORY: Past Surgical History: Procedure Laterality Date BLADDER SUSPENSION HYSTERECTOMY Endometrial cystic hyperplasia Dr. Garrett KNEE SURGERY 04/11/2016 (R) uni knee - DR RAY MENISCECTOMY B/L knee arthroscopy menisectomy SHOULDER ARTHROSCOPY 07/06/2016 (R) SHOULDER SCOPE - DR RAY SOCIAL HISTORY: Social History Occupational History Not on file Tobacco Use Smoking status: Former Current packs/day: 0.00 Types: Cigarettes Quit date: 1983 Years since quittin.3 Smokeless tobacco: Never Substance and Sexual Activity Alcohol use: Yes Comment: 1-2 drinks 2-3 times a week Drug use: Never Sexual activity: Not on file ALLERGIES: No Known Allergies MEDICATIONS: Current Outpatient Medications Medication Instructions aspirin 81 mg, Daily atorvastatin (LIPITOR) 40 mg, Nightly biotin 06547 MCG tablet Take by mouth dapagliflozin (FARXIGA) 10 mg, Daily RT Eliquis 5 MG tablet 1 tablet, 2 times daily fenofibrate micronized (Lofibra) 134 MG capsule ferrous sulfate 325 (65 Fe) MG tablet Every 24 hours furosemide (Lasix) 40 MG tablet 1 tablet, Every morning iron polysaccharides (NU-IRON,NIFEREX) 150 mg, Oral, Daily levothyroxine (Synthroid, Levoxyl) 88 MCG tablet 1 tablet, Daily liothyronine (Cytomel) 25 MCG tablet loratadine (Claritin) 10 MG tablet Take by mouth metoprolol succinate XL (Toprol-XL) 25 MG 24 hr tablet omega-3 (fish oil) 600 MG capsule 1 capsule, Every 24 hours oxybutynin XL (Ditropan-XL) 10 MG 24 hr tablet pantoprazole (PROTONIX) 40 mg, Nightly potassium chloride CR (Klor-Con M10) 10 MEQ ER tablet 2 tablets, 2 times daily REVIEW OF SYSTEMS: Review of Systems Constitutional: Negative for fatigue, fever and unexpected weight change. Eyes: Negative for redness and visual disturbance. Gastrointestinal: Negative for abdominal pain. Denies Indigestion Musculoskeletal: See note: Skin: Negative for color change and rash. Neurological: Negative for light-headedness and numbness. Vitals: Body mass index is 25.69 kg/m . PHYSICAL EXAM: Physical Exam Constitutional: General: She is not in acute distress. Appearance: Normal appearance. HENT: Head: Normocephalic and atraumatic. Right Ear: External ear normal. Left Ear: External ear normal. Nose: Nose normal. No rhinorrhea. Mouth/Throat: Mouth: Mucous membranes are moist. Pharynx: No posterior oropharyngeal erythema. Eyes: Extraocular Movements: Extraocular movements intact. Conjunctiva/sclera: Conjunctivae normal. Cardiovascular: Rate and Rhythm: Normal rate and regular rhythm. Pulses: Normal pulses. Heart sounds: No murmur heard. Comments: History of A-fib, appears regular today. Pulmonary: Effort: Pulmonary effort is normal. No respiratory distress. Breath sounds: Normal breath sounds. No wheezing or rhonchi. Abdominal: Palpations: Abdomen is soft. Tenderness: There is no abdominal tenderness. Musculoskeletal: Cervical back: Normal range of motion and neck supple. Lymphadenopathy: Cervical: No cervical adenopathy. Skin: General: Skin is warm and dry. Findings: No erythema or rash. Neurological: General: No focal deficit present. Mental Status: She is alert and oriented to person, place, and time. Psychiatric: Mood and Affect: Mood normal. Behavior: Behavior normal. No orders of the defined types were placed in this encounter. ASSESSMENT: ICD-10-CM 1. Pre-op examination Z01.818 PLAN:This patient presents for preadmission testing for upcoming surgery. Complete history with medical, surgery, and current allergy and medication list obtained. Consent for surgery signed and witnessed after verbal consent to perform surgery received. All questions answered and proposed surgery scheduled. PRE OP SURGERY INSTRUCTIONS February @ 9:00 AWAITING CARDIAC CLEARANCE MEDICARE PRE CERT [facility] Follow up in about 1 month (around 03/20/2025) [facility]. documented in this encounterMineral Area Regional Medical [id number] NoteSUBJECTIVE Reason for Visit: Rachel Orozco is a [...] Interval 10/17/2023 360 QTC CALCULATION(BAZETT) 10/17/2023 454 R-[place] 10/17/2023 -43 T Wave [place] 10/17/2023 33 D-Dimer, Quant (FEU) 10/17/2023 <0.27 [...] 10/17/2023 50.1 (L) Tropon (more content not included)...[facility] 01-25-2024 [id number] Children's Hospital03-[facility] Hospital Discharge instructions Patient Education 01/24/2024 10:34:22 Endoscopy, Care After Procedure [facility] (CUSTOM) Endoscopy Care After Procedure Please read the instructions outlined below and refer to this sheet in the next few weeks. These discharge instructions provide you with general information on caring [facility] Your doctor may also give you specific [...] blood. Document Released: 06/06/2005 Document Re-Released: 04/16/2007 [employer] Patient Information 2009 [employer]. 01/24/2024 10:34:15 Colonoscopy, Care After Surgery [place] (CUSTOM) Colonoscopy Care After Surgery Please read the instructions outlined below and refer to this sheet in the next few weeks. These discharge instructions provide you with general information on caring for yourself [facility] Your doctor may also give you specific [...] Heavy or fried foods are harder to digestand may make you feel nauseated (sick to [...] colon so that bowel contents can move througheasily. You should eat 20 to 35 grams [...] corn, and seeds. This has not been foundto be true. If you find that certain foods create cramping or bloating, avoid that food. Foods high in fiber include: Fresh fruits, fresh vegetables, legumes (beans), whole wheat bread, bran muffins or cereal, and nuts. See the table below for examples of high fiber foods. Remember, your goal is 20- 35 grams per day. Amount of fiber in different foods Food Serving Grams of fiber Fruits Apple (with skin) 1 medium apple 4.4 Banana 1 medium banana 3.1 Oranges 1 orange 3.1 Prunes 1 cup, pitted 12.4 Juices Apple, unsweetened, w/added ascorbic acid 1 cup 0.5 Grapefruit, white, canned, sweetened 1 cup 0.2 Grape, unsweetened, w/added ascorbic acid 1 cup 0.5 Cole 1 cup 0.7 Vegetables Cooked Green beans 1 cup 4.0 Carrots 1/2 cup sliced 2.3 Peas 1 cup 8.8 Potato (baked, with skin) 1 medium potato 3.8 Raw [place] (with peel) 1 cucumber 1.5 Lettuce 1 [...] 8.7 Peanuts 1/2 cup 7.9 Chart from [facility] 2013. SEEK IMMEDIATE MEDICAL CARE IF: You [...] of Agriculture (USDA) National Nutrient Database at: http://www.nal.usda.gov/fnic/foodcomp/search/ Created using data from the USDA National Nutrient Database for Standard Reference. Available at http://www.nal.usda.gov/fnic/foodcomp/search/. Information adapted from: ExitCare Patient Information 2009 [employer] [facility]. UpToDate 2013 http://www.upMilestone [email or web address]-ipkersc-jgrvic-the-basics Follow Up Care 01/17/2024 12:36:47 With:Anjelica WILSON, AAMIR Richardson, [facility] Address: [address], [address] [place] [address]- [phone] Business (1) When: Unknown Comments:-Office to call for pathology results. Call for any problems. [phone] [facility]03-20-2024 NoteEndoscopy Care After Procedure Please read the instructions outlined below and refer to this sheet in the next few weeks. These discharge instructions provide you with general information on caring for yourself after you leave thespital. Your doctor may also give you specific [...] blood. Document Released: 06/06/2005 Document Re-Released: 04/16/2007 ExitChristianacare? Patient Information ?2009 [employer]. Colonoscopy Care After Surgery Please read the instructions outlined below and refer to this sheet in the next few weeks. These discharge instructions provide you with general information on caring [facility] Your doctor may also give you [...] Heavy or fried foods are harder to digestand may make you feel nauseated (sick to [...] colon so that bowel contents can move througheasily. You (more content not included)...[facility]02-19-2024 [id number] [facility] Future Appointments Appointment Date:01/24/2024 09:15:00 AM Scheduled Provider: Location:[facility] Appointment Type:Surgery FT [facility] Evaluation note* Diagnosis Right hand pain- Primary Pain in soft tissues of limb Trigger middle finger of right hand Trigger ring finger of right hand Arthritis of carpometacarpal (CMC) joint of left thumb [facility]* Diagnosis Encounter for other preprocedural examination [facility] Diagnosis Pre-op examination- Primary documented in this encounter [facility]* Diagnosis Encounter for breast and pelvic examination- Primary Atrophic vaginitis Postmenopausal atrophic vaginitis Family history of breast cancer in female [facility]* Diagnosis Trigger middle finger of right hand- Primary Trigger ring finger of right hand [facility]* Diagnosis Status post trigger finger release- Primary documented [facility]* Diagnosis Right hand pain- Primary Pain in soft tissues of limb Carpal tunnel syndrome of right wrist Arm weakness Other musculoskeletal symptoms referable to limbs Numbness Disturbance of skin sensation Arm pain, right Pain in soft tissues of limb Trigger index finger of right hand Dupuytren's contracture Contracture of palmar fascia documented [facility]* Diagnosis Numbness- Primary Disturbance of skin sensation Paresthesias Disturbance of skin sensation Pain in both upper extremities Carpal tunnel syndrome, bilateral Carpal tunnel syndrome documented in this encounter [facility]* Diagnosis Plantar wart, left foot- Primary Plantar wart Acquired keratoderma Pain in toe of left foot Pain in soft tissues of limb Difficulty walking Difficulty in walking documented in this encounter [facility]* Diagnosis Carpal tunnel syndrome of right wrist- Primary Arthritis of carpometacarpal (CMC) joint of left thumb Trigger index finger of right hand documented in this encounter [facility] HealthcareHospital course Narrative No data available for this section [facility] Hospital Discharge instructions No data available for this section [facility] InstructionsNot on filedocumented in this encounter [facility]* Attachments The following attachments cannot be sent through Care Everywhere. * How to Perform Breast Self-Examination (Uruguayan) documented in this encounterProCommunity [facility] Hospital SystemProgress note No data available for this section [facility] Reason for visit Narrative* Other Medical (Routine) - ClosedSpecialtyDiagnoses / ProceduresReferred By ContactReferred To Contact Neurology Diagnoses Arm weakness Numbness Arm pain, right Arm pain, left Procedures EMG AND NERVE CONDUCTION STUDY Jose Coley, KEERTHI [address] [place] [address] Phone: tel: fax: Smitha Redding MD [address] [address] Phone: tel: fax: Referral IDStatusReasonStart DateExpiration DateVisits RequestedVisits [id number] [facility] Healthcare Summary Purpose Family History No Family History [...] section and content) DATE CREATED AUTHOR 12/09/[address] [facility] DATE CREATED AUTHOR AUTHOR'S ORGANIZ ATION 11/02/2022 [facility] DATE CREATED AUTHOR AUTHOR'S ORGANIZ ATION 02/09/2024 [facility] DATE CREATED AUTHOR AUTHOR'S ORGANIZ ATION 02/19/2025 [facility] DATE CREATED AUTHOR AUTHOR'S ORGANIZ ATION 03/05/2025 [facility] DATE CREATED AUTHOR AUTHOR'S ORGANIZ ATION 08/20/2025 [facility] DATE CREATED AUTHOR AUTHOR'S ORGANIZ ATION 09/08/2025 [facility] Patient Care team informatio n (unrecognized section and content) Team MemberRelationshipSpecialtyStart DateEnd Date Ben Mathur MD [address] [place] [address] PCP - GeneralFamily Medicine01/03/24Team MemberRelationshipSpecialtyStart DateEnd Date Ben Mathur MD [address] [place] [address] PCP - GeneralFamily Medicine01/03/24Team MemberRelationshipSpecialtyStart DateEnd Date Ben Mathur MD PCP - General04/12/16Team MemberRelationshipSpecialtyStart DateEnd Date Ben Mathur MD [address] [place] [address] PCP - GeneralFamily Medicine01/03/24Team MemberRelationshipSpecialtyStart DateEnd Date Ben Mathur MD [address] [facility] [place] [address] PCP - GeneralFamily Medicine01/03/24Team MemberRelationshipSpecialtyStart DateEnd Date Ben Mathur MD [address] [facility] [place] [address] PCP - GeneralFamily Medicine01/03/24Team MemberRelationshipSpecialtyStart DateEnd Date Ben Mathur MD PCP - General04/12/16Team MemberRelationshipSpecialtyStart DateEnd Date Ben Mathur MD [address] [facility] [place] [address] PCP - GeneralFamily Medicine01/03/24Team MemberRelationshipSpecialtyStart DateEnd Date Ben Mathur MD [address] [facility] [place] [address] PCP - GeneralFamily Medicine03/20/25Team MemberRelationshipSpecialtyStart DateEnd Date Ben Mathur MD [address] [facility] [place] [address] PCP - GeneralFamily Medicine03/20/25Team MemberRelationshipSpecialtyStart DateEnd Date Ben Mathur MD [address] [facility] [place] [address] PCP - GeneralFamily Medicine03/20/25Team MemberRelationshipSpecialtyStart DateEnd Date Ben Mathur MD [address] [facility] [place] [address] PCP - Generalmi Medicine03/20/25Team MemberRelationshipSpecialtyStart DateEnd Date Ben Mathur MD [address] [facility] [place] [address] [facility] - [facility]03/20/25Team MemberRelationshipSpecialtyStart DateEnd Date Ben Mathur MD [address] [facility] [place] [address] [facility] - [facility] Medicine03/20/25Team MemberRelationshipSpecialtyStart DateEnd Date Ben Mathur MD [address] [facility] [place] [address] PCP - Generalmi Medicine03/20/25Team MemberRelationshipSpecialtyStart DateEnd Date Ben Mathur MD [address] [facility] [place] [address] PCP - Generalmily Medicine03/20/25Team MemberRelationshipSpecialtyStart DateEnd Date Ben Mathur MD [address] [facility] [place] [address] PCP - GeneralFamily Medicine03/20/25 Reason for Visit (unrecogniz ed section and content) ReasonCommentsPainReasonCommentsPre-op ExamReasonCommentsGynecologic Exam Medicare Breast & Pelvic Exam.ReasonCommentsPost-opReasonCommentsPainReason CommentsDiabetic ulcerJacqueline Boonie 80yo New Patient presents with a Left foot 5th toe pain. Patient thinks it is an ulcer, denies drainage. Patient noticed 3 weeks ago, cannot see it, but feels. Typically uses a footbath 1x weekly, and files with a pedi egg. BS [address] Mathur 05/28/2025. SS8.5 FOR RECORDS PERTAINING TO PATIENTS WHO ARE [...] BE BASED ON THE PRIMARY CLINICAL RECORDS. [employer] provides no warranty or guarantee of the accuracy or completeness of information in this document.
--- NOTE | 2025-09-16 14:00 | CA_ITS ---
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 DESCRIPTION: COMPLETE ECHOCARDIOGRAM Real-time transthoracic echocardiography with 2D, M-mode, spectral and color flow Doppler performed. QUALITY: Technical quality was good. LEFT VENTRICLE: Normal chamber size. Normal left ventricular wall thickness. LV EF: Global left ventricular systolic function is normal; visually estimated ejection fraction is 55 to 60%. No wall motion abnormalities. DIASTOLIC: Not adequately assessed due to heart rhythm. ATRIAL SEPTUM: Visually appears intact. LEFT ATRIUM: Moderate dilatation. RIGHT ATRIUM: Normal chamber size. RIGHT VENTRICLE: Normal chamber size. Normal systolic function. TRICUSPID VALVE: Normal mobility and thickness. No stenosis with trivial regurgitation. No evidence of pulmonary hypertension. RVSP 30 mmHg MITRAL VALVE: Normal mobility and thickness. No evidence of mitral valve stenosis. There is no mitral annular calcification. Mild to moderate mitral regurgitation. AORTIC VALVE: Normal trileaflet appearance. No visible sclerosis. Normal leaflet mobility. No evidence of aortic valve stenosis. Trivial aortic regurgitation. AORTIC ROOT: Normal diameter and appearance. PULMONIC VALVE: Normal thickness and mobility. No stenosis. Mild to moderate regurgitation. PERICARDIUM: No evidence of pericardial effusion. IVC: Collapses with inspiration. CONCLUSION: 1. Global left ventricular systolic function is normal; visually estimated ejection fraction is 55 to 60% 2. Normal right ventricular size and systolic function 3. The left atrium is moderately dilated 4. Mild to moderate mitral regurgitation 5. Mild to moderate pulmonic regurgitation Adult Echocardiography Procedure Report Left Ventricle LVEDD (3.7 - 5.6 cm): 5.53 cm LVESD (2.2 - 4.0 cm): 3.92 cm LVIVS thickness (0.6 - 1.2 cm): 0.78 cm LVPW thickness (0.5 - 1.0 cm): 0.68 cm LVOT Max Gradient: 2.49 mm[Hg] LVOT Area (cm2): 0.79 m/s Peak Velocity (LVOT): 0.79 m/s Mean Velocity (LVOT): 0.56 m/s LVOT Diameter 2.01 cm Left Ventricular Ejection Fraction: 68.39 % Left Atrium LA Volume Index (2D A2C): 44.52 ml/m2 Left Atrium Systolic Dimension: 4.27 cm Mitral Valve MV E to A Ratio: 3.30 Mitral Valve A-Wave Peak Velocity: 0.39 m/s Mitral Valve E-Wave Peak Velocity: 1.29 m/s Right Ventricle Aorta AO Root Diam: 3.00 cm Aortic Valve AoV Area (Peak Gabe): 1.68 cm2, 1.68 cm2 AoV Area (VTI): 1.76 cm2, 1.82 cm2 Peak Velocity(Antegrade Flow): 1.49 m/s, 1.49 m/s Peak Gradient(Antegrade Flow): 8.93 mm[Hg], 8.93 mm[Hg] Mean Velocity(Antegrade Flow): 1.02 m/s, 1.05 m/s Mean Gradient(Antegrade Flow): 4.71 mm[Hg], 4.99 mm[Hg] Velocity Time Integral: 31.93 cm, 34.30 cm Tricuspid Valve Peak Velocity (Regurgitant Flow): 2.61 m/s Pulmonic Valve Mean Gradient: 1.88 mm[Hg], 1.77 mm[Hg] Mean Velocity: 0.64 m/s, 0.62 m/s Peak Velocity: 1.00 m/s Peak Gradient: 4.18 mm[Hg], 3.82 mm[Hg] Right Atrium Right Atrium Systolic Pressure: 37.22 ml, 37.22 ml Dictated by: Ranjeet Henry M.D. on 09/17/2025 at 15:55 Approved by: Ranjeet Henry M.D. on 09/17/2025 at 15:59
== END 2025-09-16 13:48 | disposition home or self-care (01) ==
LOC: CARD 13:48
PROVIDERS: PCP Family Medicine; Visit Provider Nurse Practitioner Family
DX: I50.32 Chronic diastolic (congestive) heart failure (principal)
CPT/HCPCS: 93306